=== PATIENT | female | born 1940 | race Caucasian/White ===

== ENCOUNTER 2024-02-23 11:17 | Emergency (ER) | payer MEDICARE, SELFPAY ==
--- NOTE | ~2024-02-23 | XR_ITS ---
HISTORY: right knee pain COMPARISON: 10/24/2015 TECHNIQUE: 3 views of the right knee were performed FINDINGS: Significant degenerative disease is identified with near complete obliteration of both the medial and lateral tibiofemoral joint spaces. Osteophyte formation is also noted, as is chondrocalcinosis (medial greater than lateral). No acute or subacute fracture. A suprapatellar joint effusion is identified. The infrapatellar joint space is clear. Calcified atherosclerotic disease is noted. Narrowing of the patellofemoral joint space is also noted. IMPRESSION: Severe degenerative disease, without acute fracture appreciated. Reviewed, dictated and finalized at location A. NCE CONSULTANT
--- NOTE | ~2024-02-23 | US_ITS ---
EXAMINATION: US venous doppler LE RT DATE: 02/23/2024 13:15 INDICATION: Right lower extremity pain TECHNIQUE: Grayscale ultrasound images without and with compression and Doppler ultrasound images of the right lower extremity veins were obtained. COMPARISON: None FINDINGS: The visualized portions of right common femoral vein, profunda (deep) femoral vein, femoral vein, pop liteal vein, peroneal veins, posterior tibial veins, and greater saphenous vein outflow are patent. A complex fluid collection is identified within the popliteal fossa measuring 34 x 40 x 27 mm, consis tent with a Alcocer's cyst, possibly the source of patient's discomfort. IMPRESSION: No deep venous thrombosis within the right lower extremity. Alcocer's cyst, as detailed above Reviewed, dictated and finalized at location A. N WINDER
[2024-02-23 11:18] VITALS: BP 150/75; PULSE 83; RESP 16; TEMP 36.4; O2SAT 98
--- NOTE | 2024-02-23 12:03 | ED_ITS ---
HPI - Extremity Injury (Lower) General Chief Complaint: Extremity Injury, Lower Stated Complaint: leg pain Time Seen by Provider: 02/23/24 11:55 Source: patient Mode of arrival: ambulatory Limitations: no limitations History of Present Illness HPI Narrative: This is a 84 year old female that presents to the ER for right lower extremity pain. Ongoing since she woke up this morning. Reports the pain is largely in her knee. Some radiation into the lower leg. Reports a possible injury yesterday. Reports some swelling in her leg. Denies fever, erythema, weakness, numbness. Related Data Allergies Allergy/AdvReac Type Severity Reaction Status Date / Time No Known Allergies Allergy Verified 02/23/24 12:05 Review of Systems 2 Review of Systems: CONSTITUTIONAL: Denies fever SKIN: Denies rash MUSCULOSKELETAL: Reports joint pain, and myalgia. NEUROLOGIC: Denies numbness, or weakness. All systems reviewed & are unremarkable except as noted in HPI and below PMFSH Past Medical History Medical History (Updated 02/23/24 @ 14:24 by Julianne Palma PA-C) History of hyperlipidemia History of pacemaker Family History Family History (Updated 10/22/15 @ 16:06 by DOCTOR UNKNOWN) Other Family history of cardiovascular disease Family history of malignant neoplasm Social History Social History Smoking status: Former smoker Smoking end date: 03/01/83 Alcohol intake: current Exam 2 Narrative: GENERAL: Well-appearing, well-nourished, and in no acute distress. HEAD: Normocephalic, atraumatic. EYES: EOMI. CHEST: Clear to auscultation. No respiratory distress. No wheezes rales or rhonchi HEART: Regular rate and rhythm. No murmur heard. Normal peripheral pulses. EXTREMITIES: Normal range of motion. Mild non-pitting edema about the calf and ankle. Normal DP and PT pulses. Normal sensation SKIN: Warm, dry, no rash. NEURO: No focal deficits. Alert and oriented x3. PSYCH: Normal mood and affect Course Course Emergency Course: Patient and family updated on workup and agree with plan of care Vital Signs Vital signs: Vital Signs Temperature 97.5 F L 02/23/24 11:18 Pulse Rate 83 02/23/24 11:18 Respiratory Rate 16 02/23/24 11:18 Blood Pressure 150/75 H 02/23/24 11:18 Pulse Oximetry 98 02/23/24 11:18 Oxygen Delivery Room Air 02/23/24 11:18 Temperature 97.5 F L 02/23/24 11:18 Pulse Rate 83 02/23/24 11:18 Respiratory Rate 16 02/23/24 11:18 Blood Pressure 150/75 H 02/23/24 11:18 Pulse Oximetry 98 02/23/24 11:18 Oxygen Delivery Room Air 02/23/24 11:18 MDM - Extremity Injury (Lower) MDM Narrative Medical decision making narrative: Patient presents to the emergency department for right knee and lower leg pain. She is afebrile and nontoxic appearing. Neurovascularly intact. There is mild swelling of the lower extremity appreciated this is nonpitting. CBC with mild leukocytosis to 10.6. Metabolic panel without concerning findings. Right lower extremity venous Doppler without evidence of DVT. 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 Right knee x-ray shows severe degenerative disease. Patient and family updated on workup and agree with plan of care. Instructed to follow-up with orthopedics for further care. She was given warnings to return to the ER Differential Diagnosis Differential diagnosis: Likely acute internal derangement of knee and other (Osteoarthritis, DVT, Alcocer cyst) Lab Data Attestation: I reviewed the patient's lab results. 02/23/24 12:19 02/23/24 12:19 Labs: Lab Results 02/23/24 Range/Units 12:19 WBC 10.6 H (4.5-10.0) K/mm3 RBC 4.25 (4.2-5.4) M/mm3 Hgb 13.4 (12.0-15.0) g/dL Hct 39.3 (37.0-47.0) % MCV 92.5 (80-100) fl MCH 31.5 (26-34) pg MCHC 34.1 (32-36) g/dl RDW 14.9 H (11.5-14.5) % Plt Count 173 (150-375) k/mm3 MPV 10.4 (7.4-10.4) fl Immature Gran % (Auto) 0.4 (0-0.5) % Neut % (Auto) 70.1 (45.5-73.1) % Lymph % (Auto) 14.6 L (18.3-44.2) % [place] % (Auto) 13.7 H (2.6-8.5) % Eos % (Auto) 0.9 (0-4.4) % Baso % (Auto) 0.3 (0.2-1.2) % Lymph # (Auto) 1.55 (0.9-3.2) K/mm3 [place] # (Auto) 1.5 H (0.1-0.6) K/mm3 Eos # (Auto) 0.1 (0-0.3) K/mm3 Baso # (Auto) 0.0 (0.0-0.1) K/mm3 Abs Immat Gran (auto) 0.04 H (0.00-0.031) K/mm3 Absolute Neuts (auto) 7.5 H (1.3-6.7) K/mm3 Absolute Nucleated RBC 0.000 (0.0-0.012) K/mm3 Nucleated RBC % 0.0 (0.0-0.2) % PT 14.4 (11.1-14.7) Seconds INR 1.1 APTT 33.4 (22.3-36.8) Seconds Sodium 137 (137-145) mmol/L Potassium 4.1 (3.4-5.0) mmol/L Chloride 104 (98-107) mmol/L Carbon Dioxide 30 (22-30) mmol/L Anion Gap 3 L (4-12) mmol/L BUN 28 H (7-17) mg/dL Creatinine 0.60 L (0.7-1.0) mg/dL Estim Creat Clear Calc 51 ml/min Estimated GFR > 60 (59 - ) Glucose 97 (65-110) mg/dL Calcium 9.1 (8.4-10.2) mg/dL Total Bilirubin 0.7 (0.2-1.3) mg/dL AST 30 (14-36) U/L ALT 13 (6-35) U/L Alkaline Phosphatase 74 (38-126) U/L NT-Pro-B Natriuret Pep 201 H (19.9-100) pg/mL Total Protein 6.0 L (6.3-8.2) g/dL Albumin 3.9 (3.5-5.1) g/dL Imaging Data Radiologist's impression: ITS Impressions Venous Doppler Study 02/23/24 13:43 IMPRESSION: No deep venous thrombosis within the right lower extremity. Alcocer's cyst, as detailed above Knee X-Ray 02/23/24 14:08 IMPRESSION: Severe degenerative disease, without acute fracture appreciated. Critical Care Time Critical Care Time Critical Care Time: No Discharge Plan Discharge Clinical Impression: Acute pain of right knee, Osteoarthritis, Alcocer cyst Patient Disposition: Home, Self-Care Condition: Stable Instructions: Osteoarthritis (ED), Alcocer Cyst (ED) Additional Instructions: Return to the ER if you experience fever, redness and swelling of your leg, weakness, numbness or any other symptoms that are concerning to you Rest, use ice/heat, take anti-inflammatories (Aleve, Ibuprofen, Naproxen, etc) or Tylenol as needed for pain Follow up with Orthopedics Patient Language: Arabic Follow-up/Referrals: Kael Boucher MD [Physician] - PHYSICIAN NOT ON STAFF,NONSTAFF [Non-Staff] - Сергей Salcido MD [Physician] -
[2024-02-23 12:24] LABS: Basophils Percent Auto 0.3 % (0.2-1.2); Eosinophils Absolute Auto 0.1 K/mm3 (0-0.3); Eosinophils Percent Auto 0.9 % (0-4.4); Hematocrit 39.3 % (37.0-47.0); Hemoglobin 13.4 g/dL (12.0-15.0); Immature Granulocyte Absolute 0.04 K/mm3 (0.00-0.031); Immature Granulocyte Percent A 0.4 % (0-0.5); Lymphocytes Absolute Auto 1.55 K/mm3 (0.9-3.2); Lymphocytes Percent Auto 14.6 % (18.3-44.2); Mean Corpuscular HGB Conc 34.1 g/dl (32-36); Mean Corpuscular Hemoglobin 31.5 pg (26-34); Mean Corpuscular Volume 92.5 fl (80-100); Mean Platelet Volume 10.4 fl (7.4-10.4); Monocytes Absolute Auto 1.5 K/mm3 (0.1-0.6); Monocytes Percent Auto 13.7 % (2.6-8.5); Neutrophils Absolute Auto 7.5 K/mm3 (1.3-6.7); Neutrophils Percent Auto 70.1 % (45.5-73.1); Platelet Count Result 173 k/mm3 (150-375); Red Blood Count 4.25 M/mm3 (4.2-5.4); Red Cell Distribution Width 14.9 % (11.5-14.5); White Blood Count 10.6 K/mm3 (4.5-10.0)
[2024-02-23 12:33] LABS: Alanine Aminotransferase 13 U/L (6-35); Albumin Level 3.9 g/dL (3.5-5.1); Alkaline Phosphatase 74 U/L (38-126); Anion Gap 3 mmol/L (4-12); Aspartate Amino Transferase 30 U/L (14-36); Bilirubin,Total 0.7 mg/dL (0.2-1.3); Blood Urea Nitrogen 28 mg/dL (7-17); Calcium 9.1 mg/dL (8.4-10.2); Carbon Dioxide 30 mmol/L (22-30); Chloride 104 mmol/L (98-107); Estimated CRCL calculation 51 ml/min; Estimated Glomerular Filt Rate > 60; Glucose 97 mg/dL (65-110); Potassium 4.1 mmol/L (3.4-5.0); Sodium 137 mmol/L (137-145)
[2024-02-23 12:36] LABS: INR 1.1; Partial Thromboplastin Time 33.4 Seconds (22.3-36.8); Prothrombin Time 14.4 Seconds (11.1-14.7)
[2024-02-23 12:42] LABS: NT Pro B Type Natriuretic Pept 201 pg/mL (19.9-100)
--- OUTSIDE RECORDS SUMMARY | 2024-03-01 05:49 | XMS_ITS | Patient Health Record ---
Author Organization [facility] steve Address [address] [place] [address] Care Team Providers Care Air Grinder Name Role Phone Luisa Mitchell DO Primary Care Provider Emelyn rios YimiRenetta Unavailable [phone] Allergies No Known Allergies Results Component Value Reference Range Notes CRP (C-REACTIVE PROTEIN) Reviewed date:09/29/2023 04:20:31 PM Interpretation: Performing Lab:[facility], [address] [place] [address], [id number] Notes/Report: C-Reactive Protein <1.0 0.0-10.0 mg/L RHEUMATOID FACTOR (RF), MARJORIE TITATIVE Reviewed date:09/29/2023 04:20:31 PM Interpretation: Performing Lab:[facility], [address] [place] [address], [id number] Notes/Report: Rheumatoid Factor, Quantitative Interpretation Negative Negative RF, Quantitation <10 <=14 IU/mL CK Reviewed date:09/29/2023 04:20:31 PM Interpretation: Performing Lab:[facility], [address] [place] [address], [id number] Notes/Report: CK, Total 137 26-192 units/L URIC ACID Reviewed date:09/29/2023 04:20:31 PM Interpretation: Performing Lab:[facility], [address] [place] [address], [id number] Notes/Report: Uric Acid 5.6 2.3-6.6 mg/dL CMP(COMPREHENSIVE METABOLIC PANEL) Reviewed date:09/29/2023 04:20:31 PM Interpretation: Performing Lab:[facility], [address] [place] [address], [id number] Notes/Report: Sodium 138 133-146 mmol/L Potassium 4.5 3.5-5.1 mmol/L Chloride 102 98-107 mmol/L Carbon Dioxide 30 21-31 mmol/L Anion Gap 6 4-13 mmol/L Blood Urea Nitrogen 43 7-25 mg/dL Creatinine 0.93 0.60-1.30 mg/dL eGFRcr (CKD-EPI 2020) 62 >=60 mL/min/1.73 m2 Calcium 9.9 8.3-10.5 mg/dL Glucose 97 70-100 mg/dL Protein, Total 6.7 6.4-8.3 g/dL Albumin 4.5 3.5-5.0 g/dL ALT 16 9-43 units/L Alkaline Phosphatase 51 34-104 units/L AST 26 13-39 units/L Bilirubin, Total 0.5 0.2-1.2 mg/dL CBC W/DIFF Reviewed date:09/29/2023 04:20:31 PM Interpretation: Performing Lab:[facility], [address] [place] [address], [id number] Notes/Report: WBC 7.3 3.5-10.5 10'3/uL RBC 4.38 (Based on docume nted legal sex) 3.80-5.20 10'6/uL HGB 13.9 (Based on docume nted legal sex) 11.6-15.4 g/dL HCT 41.7 (Based on docume nted legal sex) 34.0-45.0 % MCV 95.2 80.0-99.0 fL MCH 31.7 27.0-34.0 pg MCHC 33.3 32.0-35.5 g/dL RDW 14.1 11.0-15.0 % PLT 191 150-400 10'3/uL MPV 11.9 8.8-12.1 fL NRBC's 0.0 0.0 % Absolute NRBCs 0.0 No reference ran ge established 10'3/uL Neutrophils 55.5 34.0-73.0 % Lymphocytes 34.1 15.0-50.0 % Monocytes 8.6 1.0-15.0 % Eosinophils 1.6 0.0-8.0 % Basophils 0.1 0.0-2.0 % Immature Granulocytes 0.1 No defined reference range % Absolute Neutrophils 4.1 1.5-8.0 10'3/uL Absolute Lymphocytes 2.5 1.0-4.0 10'3/uL Absolute Monocytes 0.6 0.2-1.0 10'3/uL Absolute Eosinophils 0.1 0.0-0.6 10'3/uL Absolute Basophils 0.0 0.0-0.3 10'3/uL Absolute Immature Granulocytes 0.0 0.00-0.10 10'3/uL 09/28/2023 4:42 AM: P indicates partial results on a panel have been released. Additional results will follow. 09/28/2023 4:42 AM: This result has been final verified. No additional or changed results are expected. SEDIMENTATION RATE, ESR Reviewed date:09/29/2023 04:20:31 PM Interpretation: Performing Lab:[facility]@[address], [address] Notes/Report: Sedimentation Rate 2 (Based on doc umented legal sex) 0-30 mm/Hour CYCLIC CITRULLINATED PEPTIDE (CCP) AB, IgG/IgA Reviewed date:09/29/2023 04:20:31 PM Interpretation: Performing Lab:[facility], [address] [place] [address], [id number] Notes/Report: CCP Antibodies 69 0-19 units Negative <20 Weak positive 20 - 39 Moderate positive 40 - 59 Strong positive >59 Performed at: [address] [place] [id number] Button Sawyer: Parrish Campos PhD, Phone: [phone] G6PD, QUANTITATIVE, RBC Reviewed date:09/29/2023 04:20:32 PM Interpretation: Performing Lab:[address], [address] Notes/Report: G-6-PD, RBC 16.3 7.0-20.5 U/g Hgb Performing Organization Information: Site ID: Name: [facility] Address: [address] [place] [id number] Director: Rodger Guillen SSA/SSB ANTIBODY (SJOGREN'S) Reviewed date:09/29/2023 04:20:32 PM Interpretation: Performing Lab:[facility], [address] [place] [address], [id number] Notes/Report: SSA Ro Antibody <0.2 0.0-0.9 AI SSA Ro Interpretation Negative Negative SSB La Antibody <0.2 0.0-0.9 AI SSB La Interpretation Negative Negative CÉSAR SCREEN/REFLEX TITER/SOSA WILTON Reviewed date:09/29/2023 04:20:32 PM Interpretation: Performing Lab:[facility], [address] [facility], [place], [address] Notes/Report: Anti-Nuclear Antibody Negative Negative CÉSAR titers and patterns are performed using an immunofluorescence assay technology. Follow up testing for positive specimens, if required, is performed using multiplex bead technology. Reason For Referral No Information Medications Medication SIG (Take, Route, Frequency, Duration) Notes Start Date End Date Status Florien 3-6-9 - as directed Orally Active dilTIAZem HCl ER 240 MG 1 tablet Orally Once a day for 30 day(s) Active B Complex - as directed Orally Active Metoprolol Succinate ER 25 MG 1 tablet O rally Once a day for 30 day(s) Active Calcium 500 Active Hydroxychloroquine Sulfate 2 00 MG TAKE 1 TABLET BY MOUTH EVERY DAY WITH FOOD Orally for 30 days Active Atorvastatin Calcium 20 MG 1 tablet Oral ly Once a day for 30 day(s) Active Meloxicam 7.5 MG 1 tablet Orally Once a day for 30 day(s) Active Pradaxa 150 MG 1 capsule Orally Twi ce a day for 30 day(s) Active Eye Health - as directed Orally Active Social History Tobacco Use: Social History Observation Description Date Details (start date - stop date) Former Smoker NA - NA Household Question Answer Notes Marital status: Number of children in household: 0 Tobacco Control (Standard) Question Answer Notes Tobacco use: Former smoker How long has it been since you last smoked? 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 [address] [place] [address] 09/27/2023 Renetta Geller Pain in unspecified joint M25.50 ; Pain in right hand M79.641 ; Pain in left hand M79.642 ; Pain, joint, knee, right M25.561 and Right foot pain M79.671 [facility] [address] [place] [address] 10/13/2023 Renetta Geller Rheumatoid arthritis 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, multiple sites M06.09 ; Generalized osteoarthritis M15.9 and High risk medication use Z79.899 [facility] [address] [facility] [address] [place] [address] 01/13/2024 Renetta Geller Rheumatoid arthritis 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, multiple sites M06.09 ; Generalized osteoarthritis M15.9 and High risk medication use Z79.899 Assessments Encounter Date Diagnosis (ICD Code) Assessment Notes Treatment Notes Treatment Clinical Notes Section Notes 09/27/2023 Pain in unspecified joint (ICD-10 - M25.50) 83 year old female with pain in the hands, the right foot and the right knee. Joint exam suggests osteoarthritis. Labs and Xrays will be ordered to rule out other possibilities. Follow up virtual visit will be scheduled. 09/27/2023 Pain in right hand (ICD-10 - M79.641) 83 year old female with pain in the hands, the right foot and the right knee. Joint exam suggests osteoarthritis. Labs and Xrays will be ordered to rule out other possibilities. Follow up virtual visit will be scheduled. 10/13/2023 Rheumatoid arthritis 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, multiple sites (ICD-10 - M06.09) anti-CCP 69, h as seronegative rheumatoid arthritis and erosive osteoarthritis based on Xrays, start plaquenil 200mg/day, return in 3 months 10/13/2023 Generalized osteoarthritis (ICD-10 - M15.9) anti-CCP 69, childress s seronegative rheumatoid arthritis and erosive osteoarthritis based on Xrays, start plaquenil 200mg/day, return in 3 months 01/13/2024 Rheumatoid arthritis 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, multiple sites (ICD-10 - M06.09) advised to sto p mobic due to being on pradaxa and borderline GFR, hx of bradycardia and atrial fibrillation s/p pacer, advised her to call cylinder machine operator pulp drier and ask if plaquenil can be continued (it has hlped with joint pain) 10/13/2023 High risk medication use (ICD-10 - Z79.899) anti-CCP 69, has seronegative rheumatoid arthritis and erosive osteoarthritis based on Xrays, start plaquenil 200mg/day, return in 3 months 09/27/2023 Pain in left hand (ICD-10 - M79.642) 83 year old female with pain in the hands, the right foot and the right knee. Joint exam suggests osteoarthritis. Labs and Xrays will be ordered to rule out other possibilities. Follow up virtual visit will be scheduled. 01/13/2024 Generalized osteoarthritis (ICD-10 - M15.9) advised to stop mobic due to being on pradaxa and borderline GFR, hx of bradycardia and atrial fibrillation s/p pacer, advised her to call cylinder machine operator pulp drier and ask if plaquenil can be continued (it has hlped with joint pain) 09/27/2023 Pain, joint, knee, right (ICD-10 - M25.561) 83 year old female with pain in the hands, the right foot and the right knee. Joint exam suggests osteoarthritis. Labs and Xrays will be ordered to rule out other possibilities. Follow up virtual visit will be scheduled. 01/13/2024 High risk medication use (ICD-10 - Z79.899) advised to st op mobic due to being on pradaxa and borderline GFR, hx of bradycardia and atrial fibrillation s/p pacer, advised her to call cylinder machine operator pulp drier and ask if plaquenil can be continued (it has hlped with joint pain) 09/27/2023 Right foot pain (ICD-10 - M79.671) 83 year old female with pain in the hands, the right foot and the right knee. Joint exam suggests osteoarthritis. Labs and Xrays will be ordered to rule out other possibilities. Follow up virtual visit will be scheduled. Plan Of Treatment Pending Test Test Name Order Date X ray : Foot, right 09/27/2023 X ray : Hands, bilateral 09/27/2023 X ray : Knee, right 2 views 09/27/2023 Next Appt Details Provider Name:Renetta Geller, 04/13 01:30:00 PM, [address] [facility] [address], [place], [address], Insurance Providers Payer Name Payer Address Payer Phone Subscriber Number Group Number Insured Name Patient Relationship to Insured Coverage Start Date Coverage End Date Medicare [address] [address] [place] [address] [id number] Francine Erwin Self - patient is the insured [employer] [facility] [address] [address] [place] [address] [id number] Francine Erwin Self - patient is the insured Medical (General) History Medical History History ICD Code atrial fibrillation, gastrit is, hypertension, hyperlipidemia, insomnia, hypervitaminosis D, proteinuria, skin cancer, spinal stenosis, psoriasis Surgical History Surgery Date(Month/Year) pace maker
--- OUTSIDE RECORDS SUMMARY | 2024-03-01 05:49 | XMS_ITS | Encounter Summary ---
Author Organization [facility] Healthcare Address [address] [place] [address] Care Team Providers Care Steward Dishwasher Name Role Phone Angie Riddle MD Unavailable [phone] Luisa Mitchell DO Primary Care Provider [phone] Reason for Visit * Auth/Cert (Routine) Specialty Diagnoses / Procedures Referred By Viridiana oconnor Referred To Contact Diagnoses SSS (sick sinus syndrome) (CMS/HCC) (HCC) SSS (sick sinus syndrome) (CMS/HCC) (HCC) [I49.5] Procedures WI REMVL PERM PM PLS GEN W/REPL PLSE GEN 2 LEAD SYS REMOVE/REPLACE PACEMAKER (PPM) DUAL LEAD SYSTEM [address] Arnold Stout III, MD [address] [address] Phone: tel: fax: Referral ID Status Reason Start Date Expiration Date Visits Re quested Visits Authorized [id number] 11/08/2023 1 1 Encounter Details Date Type Department Care Team (Latest Contact Info) Description 11/15/2023 3:25 PM CDT - 11/15/2023 4:45 PM CDT Surgery [facility] Electrophysiology Lab [address] [place] [id number] Arnold Stout III, MD [address] [address] REMOVE/REPLACE PACEMAKER (PPM) DUAL LEAD SYSTEM [address] Surgery Details Date/Time Status Location OR Service Patient Class Case Class Case Type Trauma Case? 11/15/2023 3:25 PM Posted [facility] EP LAB EP D Cardiovascular Outpatient Elective Panel 1 Procedure LRB Anes Op Region Wound Class Comments REMOVE/REPLACE PACEMAKER (PP M) DUAL LEAD SYSTEM [address] N/A Choice Surgeon Surgeon Role Service Panel Arnold Stout III, MD Primary Cardiovascu lar 1 Case Notes DESULPHURIZER OPERATOR/MEDTRONICPPM GEN CHANGE documented in this encounter Social History Tobacco Use Types Packs/Day Years Used Date Smoking Tobacco: Former Cigarettes Q uit: 1984 Smokeless Tobacco: Never Alcohol Use Standard Drinks/Week Comments No 0 (1 standard drink = 0.6 oz pur e alcohol) AUDIT-C Answer Date Recorded Q1: How often do you have a drink containing alc ohol? Monthly or less 11/15/2023 Q2: How many drinks containi ng alcohol do you have on a typical day when you are drinking? 1 or 2 11/15/2023 Q3: How often do you have si x or more drinks on one occasion? Never 11/15/2023 Personal Safety Answer Date Recorded Have you ever been in or are you currently in a harmful physical or emotional relationship or is someone making you feel afraid or unsafe? Denies 11/15/2023 Comments No Sex and Gender Information Value Date Recorded Sex Assigned at Not on file Legal Sex Female 9:31 AM FAMILY PRACTITIONER Gender Identity Not on file Sexual Orientation Not on file documented as of this encounter Last Filed Vital Signs Vital Sign Reading Time Taken Comments Blood Pressure 166/90 11/15/2023 4:20 PM CDT Pulse 59 11/15/2023 4:20 PM CDT Temperature 37 ??C (98.6 ??F) 11/15/2023 11:55 AM CDT Respiratory Rate 16 11/15/2023 4:20 PM CDT Oxygen Saturation 93% 11/15/2023 4:20 PM CDT Inhaled Oxygen Concentration - - Weight 51.5 kg (113 lb 8.6 oz) 11/15/2023 11:55 AM CDT Height 160 cm (5' 3 ) 11/15/2023 11:55 AM CDT Body Mass Index 20.11 11/15/2023 11:55 AM CDT documented in this encounter Discharge Instructions * Discharge Instructions* Arnold Stout III, MD - 11/15/2023 4:09 PM CDT Images from the original note were not included. [facility] Discharge Instructions Generator Replacement IMPORTANT: DO NOT TAKE PRADAXA (DABIGATRAN) FOR 3 days AFTER THE PROCEDURE. YOU MAY RESUME ON 11/18/23 Wound Care Keep wound dry (no showers) for 1 week. Do not remove steri-strips, as these are protecting your wound. They will fall off on their own. After 1 week, you may shower. You may ???pat dry?? your incision with a towel. Do not scrub. Do Not Use Soap or ointments on the wound. Do not ???submerge?? the incision (i.e., with a bath) for 4 weeks. Notify the physician at the office if you develop fever > 100.4, chills, increasing swelling, redness or drainage from your pacemaker site. If you have a moderate amount of discomfort at the site, you may apply an ice pack for 20 minutes 3times a day for one week. Activity No driving for 1 week. No additional restrictions regarding activity ID Card You will receive a temporary card from the device company. Carry this in your wallet until your permanent card arrives, usually in 6-8 weeks. A monitor will be sent home with you, please read the instructions and supervisor mails the monitor. Additional Instructions Extra Strength Tylenol may be taken every 6 hours as needed for pain. You should avoid strong magnetic currents (large electrical generators, arc welding). You can operate any home electrical appliances including microwave ovens. Notify the physician office at [phone], immediately if you develop abrupt dizziness or shortness of breath. If you feel there is an urgent matter, call 911 or go to the emergency room. Call the office at [phone] with any questions or concerns. Call to schedule a follow-up appointment / wound check. This should be done in the first 7-10 days following your procedure. IMPORTANT: DO NOT TAKE PRADAXA (DABIGATRAN) FOR 3 days AFTER THE PROCEDURE. YOU MAY RESUME ON 11/18/23 Arnold Stout III, M.D. Cardiac Electrophysiology [facility] 11/08/2023 documented in this encounter Medications at Time of Discharge atorvastatin (LIPITOR) 20 mg tablet Take 1 tablet (20 mg total) by mouth daily CALCIUM CITRATE-VITAMIN D3 ORAL Take 1 tablet by mouth 2 (two) times a day VITAMIN D3 60MCG + CALCIUM 1200MG dilTIAZem CD 180 mg 24 hr capsule Take by mouth daily 08/01/2023 meloxicam (MOBIC) 7.5 mg tablet Take 1 tablet (7.5 mg total) by mouth daily metoprolol XL (TOPROL-XL) 50 mg extended release tablet TAKE 1 TABLET BY MOUTH EVERY DAY 90 tablet 2 10/28/2023 omega-3 fatty acids-vitamin E (FISH OIL) 1,000 mg capsule take 1 by Oral route 3 times every day 0 0 07/21/2013 VIT C/E/ZN/COPPR/LUT EIN/ZEAXAN (PRESERVISION AREDS 2 ORAL) Take by mouth Take 2 capsules daily cephalexin (KEFLEX) 500 mg capsule Take 1 capsule (500 mg total) by mouth 3 (three) times a day for 5 days 15 capsule 11/15/2023 11/20/2023 dabigatran (Pradaxa) 150 mg capsule Take 1 capsule (150 mg total) by mouth 2 (two) times a day 180 capsule 2 03/25/2023 12/28/2023 documented as of this encounter Ordered Prescriptions Prescription Sig Dispense Quantity Refills Last Filled Start Date End Date cephalexin (KEFLEX) 500 mg capsule Take 1 capsule (500 mg total) by mouth 3 (three) times a day for 5 days 15 capsule 11/15/2023 documented in this encounter Discharge Disposition Disposition Code Departure Means Destination Comment s Discharge to home or self care documented in this encounter H&P Notes * Arnold Stout III, MD - 11/17/2023 9:36 PM CDT [facility] Arrhythmia Center: Focused H&P Patient ID Francine Erwin 1940 is a 83 y.o. female presenting on 11/17/2023 for an EP procedure. Pleasesee prior outpatient clinic note for full detail. History HPI Francine Erwin is a 83 y/o woman with sinus node dysfunction s/p dual chamber pacemaker. Her generator has reached SARMAD status. Past Medical History Patient Active Problem List Diagnosis Date Noted SSS (sick sinus syndrome) ([facility]/HCC) ([facility]) 11/08/2023 Paroxysmal atrial fibrillation ([facility]) ([facility]) 09/07/2016 Overview Note: On chronic AC. 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 Chronic A lead is from 09-13-03. [facility]. Breast mass, left 08/19/2016 Allergies No Known Allergies Medications Please refer to medicine reconciliation form Physical Exam Physical Exam BP 166/90 Pulse 59 Temp 37 ??C (98.6 ??F) (Tympanic) Resp 16 Ht 160 cm (5' 3 ) Wt 51.5 kg(113 lb 8.6 oz) SpO2 93% BMI 20.11 kg/m?? General: No acute distress. Lungs: Clear to auscultation bilaterally. Cardiovascular: RRR Abdomen: Soft and non-tender. Extremities: Moving all extremities. Neuro: Grossly non-focal Treatment Plan Impression: Sinus node dysfunction, s/p dual chamber pacemaker Pacemaker generator SARMAD status Plan: To EP lab for pacemaker generator replacement w/anesthesia documented in this encounter Miscellaneous Notes * Op Note - Arnold Stout III, MD - 11/15/2023 3:30 PM CDT Name of procedure: 1. Device Revision: Dual Chamber Pacemaker 2. Pulse Generator Change History: Sinus node dysfunction, s/p dual chamber pacemaker Pacemaker generator SARMAD mullins Methods: After informed consent was obtained, the patient was brought to the EP laboratory in a postabsorptive, nonsedated state. Peripheral IV access was established. Prophylactic antibiotics were administered prior to incision. Continues ECG, blood pressure, and pulse oximetry were initiated. Cardioversion patch electrodes were placed on the patient's chest and back. A grounding patch was applied to theskin. Sedation was administered by anesthesia service.. The left chest was prepared and draped in a sterile fashion. Local anesthesia was injected in the subcutaneous tissue in the infraclavicular area. An incision was made into the chronic scar. With cautious attention to the leads, the subcutaneous tissue was dissected the level of the device capsule.The capsule was opened, the device was explanted and disconnected from the leads. The leads were inspected and found to be free of visible defect. The leads were tested and found to have adequate pacing and sensing parameters, consistent with pre- procedure measurements. The pocket was revised to accomodate the new device. The pocket was flushed with antibiotic solution and hemostasis was assured. Floseal was applied. The generator was connected to the leads and placed inside the pocket. The wound was closed with 2 running layers of absorbable suture, and medical adhesive was applied to the skin. Following the procedure, the patient was taken to the recovery area in stable condition. No complications were noted. Lead parameters and device programming: - RA Lead (#[id number]): Sensing 3.1 mV, Pacing threshold 1.2 V at 0.5 ms, Imp 532 Ohm - RV Lead (#[id number]): Sensing >8 mV, Pacing threshold 1.0 V at 0.5 ms, Imp 494 Ohm - Device: Medvi Dorman DR MRI SureScan pacemaker (#[id number]), programmed MVPR 60-120 ppm - Explanted device: Medtronic Jose COBOS (#[id number]) Conclusions: 1. Successful dual chamber pacemaker revision 2. Pulse generator change, pacemaker Recommendations: 1. Discharge home when stable 2. Oral antibiotics for five days 3. Hold pradaxa for 3 days. 4. Follow-up will be arranged in the Arrhythmia Center 7-10 days post-discharge Arnold Stout III, M.D. Cardiac Electrophysiology [facility] documented in this encounter Plan of Treatment Not on file documented as of this encounter Procedures Procedure Name Priority Date/Time Associated Diagnosis Comments PACEMAKER GENERATOR CHANGE - DUAL Routine 11/15/2023 4:03 PM CDT SSS (sick sinus syndrome) (CMS/HCC) (HCC) ECG 12-LEAD STAT 11/15/2023 12:02 PM CDT documented in this encounter Results * PACEMAKER GENERATOR CHANGE - DUAL (11/15/2023 4:03 PM CDT) Anatomical Region Laterality Modality X-Ray Angiograph y Arnold Stout III, MD CV ELECTROPHYSIOLOG Y PROCS Final Result * ECG 12 lead (11/15/2023 12:02 PM CDT) 11/15/2023 12:0 2 PM CDT Narrative [facility] - 11/15/2023 9:46 PM CDT Vent Rate: 65 bpm RR Interval: 921 msec [place] Interval: 0 msec QRS Duration: 202 msec QT Interval: 486 msec QTC Interval: 497 msec P-R-T [place]: 0 - 102 - -66 degrees IMPRESSION: ELECTRONIC VENTRICULAR PACEMAKER ABNORMAL RHYTHM ECG Electronically Signed By: Rajendra Nunes MD Arnold Stout III, MD ECG ORDERABLES Fin al Result [facility] documented in this encounter Visit Diagnoses Diagnosis SSS (sick sinus syndrome) (CMS/HCC) (HCC)- Primary Sinoatrial node dysfunction SSS (sick sinus syndrome) (CMS/HCC) (HCC) Sinoatrial node dysfunction documented in this encounter Admitting Diagnoses Diagnosis SSS (sick sinus syndrome) (CMS/HCC) (HCC) Sinoatrial node dysfunction documented in this encounter Administered Medications Inactive Administered Medications - up to 3 most recent administrations Medication Order MAR Action Action Date Dose Rate Site lidocaine (XYLOCAINE) 20 mg/mL (2 %) injection Code/trauma/sedation medication, Starting on Wed11/15/23 at 1548, Intra-Procedure (CV), Indications: Administration of Local AnesthesiaIndications:Adm inistration of Local Anesthesia Given 11/15/2023 3:48 PM CDT 13 mL Left Chest sodium chloride 0.9% infusion 50 mL/hr, intravenous, Continuous, Starting on Wed11/15/23 at 1230, Pre-Procedure (CV) New Bag 11/15/2023 12:01 PM CDT 50 mL/hr 50 mL/hr sodium chloride 0.9% irrigation Code/trauma/sedation medication, Starting on Wed11/15/23 at 1554, Intra-Procedure (CV) Given 11/15/2023 3:54 PM CDT 500 mL Surgical Site documented in this encounter Discontinued Medications Medication Sig Discontinue Reason Start Date End Da te meloxicam (MOBIC) 7.5 mg tablet Take 1 tablet (7.5 mg total) by mouth daily as needed Duplicate order 08/26/2023 11/12/2023 meloxicam (MOBIC) 15 mg tablet take 1 tablet by oral route every day as needed Duplicate order 07/21/2013 11/12/2023 ascorbic acid/collagen hydr (COLLAGEN PLUS VITAMIN C ORAL) Take 6 tablets by mouth daily Therapy completed 11/12/2023 cholecalciferol (VITAMIN D-3) 5,000 unit tablet daily Therapy completed 024 cyanocobalamin (Vitamin B-12) 1,000 mcg tabletIndications:Preven tion of Vitamin B12 Deficiency Take 5 tablets (5,000 mcg total) by mouth daily Therapy completed 11/12/2023 multivitamin tablet tablet take 1 by Oral route once Therapy completed 07/21/2013 11/12/2023 polycarbophil (FIBERCON) 625 mg tablet Take 1 tablet (625 mg total) by mouth daily ONE IN AM AND TWO AT PM Therapy completed 11/12/2023 vitamin b complex tablet Take 1 tablet by mouth daily Therapy completed 11/15/2023 documented as of this encounter Historical Medications * This list may reflect changes made after this encounter. CALCIUM CITRATE-VITAMIN D3 ORAL Take 1 tablet by mouth 2 (two) times a day VITAMIN D3 60MCG + CALCIUM 1200MG meloxicam (MOBIC) 7.5 mg tablet Take 1 tablet (7.5 mg total) by mouth daily vitamin b complex tablet Take 1 tablet by mouth daily 11/15/2023 meloxicam (MOBIC) 7.5 mg tablet Take 1 tablet (7.5 mg total) by mouth daily as needed 08/26/2023 11/12/2023 added in this encounter Active and Recently Administered Medications Times are shown in CDT. Continuous Medication Order 11/13/2023 11/14/2023 11/15/2023 sodium chloride 0.9% infusion 50 mL/hr, intravenous, Continuous, Starting on Wed11/15/23 at 1230, Pre-Procedure (CV) 1201 (New Bag - Prov ider: Cecelia Bullock RN) PRN Medication Order 11/13/2023 11/14/2023 11/15/2023 lidocaine (XYLOCAINE) 20 mg/mL (2 %) injection (CANCELED) Code/trauma/sedation medication, Starting on Wed11/15/23 at 1548, Intra-Procedure (CV), Indications: Administration of Local Anesthesia 1548 (Given - Provid er: Arnold Stout III, MD) sodium chloride 0.9% irrigation (CANCELED) Code/trauma/sedation medication, Starting on Wed11/15/23 at 1554, Intra-Procedure (CV) 1554 (Given - Provid er: Arnold Stout III, MD) documented in this encounter Orders Discharge Count Last Ordered Date First Orde red Date DISCHARGE PATIENT 1 11/15/2023 documented in this encounter Care Teams Steward Dishwasher Relationship Specialty Start Date End Date Luisa Mitchell DO [address] [place], [place] [id number] PCP - General Internal Medicine 08/11/22 Angie Riddle MD [address] [place] [address] Gynecology 08/19/16 documented as of this encounter
--- OUTSIDE RECORDS SUMMARY | 2024-03-01 05:49 | XMS_ITS | Encounter Summary ---
Author Organization [facility] Healthcare Address [address] [place] [address] Care Team Providers Care Energy Trading Analyst Name Role Phone Angie Riddle MD Unavailable [phone] Luisa Mitchell DO Primary Care Provider [phone] Reason for Visit * Reason Onset Date Comments Med Management 01/14/2024 Encounter Details Date Type Department Care Team (Late st Contact Info) Description 01/14/2024 Telephone [facility] Cardiology [address] [facility] [address] [place] [address] Yoni Matamoros MD [address] [facility] [address] [place] [address] Med Management Social History Tobacco Use Types Packs/Day Years Used Date Smoking Tobacco: Former Cigarettes Q uit: 1985 Smokeless Tobacco: Never Alcohol Use Standard Drinks/Week [...] on file Legal Sex Female 9:31 AM OIL AGENT Gender Identity Not on file Sexual Orientation Not on file documented as of this encounter Miscellaneous Notes * Telephone Encounter - Shakira Iyer - 01/14/2024 2:27 PM CST Pt called and informed AGENT * Telephone Encounter - Yoni Matamoros MD - 01/14/2024 2:21 PM OIL AGENT I do not have any problems with her taking hydroxychloroquine AGENT * Telephone Encounter - Shakira Iyer - 01/14/2024 1:33 PM CST Pt saw a dr and was prescribed hydroxychloro 200mg tabs daily for arthritis. Was instructed to call to see if ok for her to take with her cardiac condition. AGENT documented in this encounter Plan of Treatment Not on file documented as of this encounter Visit Diagnoses Not on filedocumented in this encounter Care Teams Energy Trading Analyst Relationship Specialty Start Date End Date Luisa Mitchell DO [address] [place] [address] PCP - General Internal Medicine 08/11/22 Angie Riddle MD [address] [place] [address] Gynecology 08/19/16 documented as of this encounter
--- OUTSIDE RECORDS SUMMARY | 2024-03-01 05:49 | XMS_ITS | Encounter Summary ---
Author Organization [facility] Healthcare Address [address] [place] [address] Care Team Providers Care Game Designer/Creative Director Name Role Phone Angie Riddle MD Unavailable [phone] Luisa Mitchell DO Primary Care Provider [phone] Reason for Visit * Cardiology (Routine) - Closed Specialty Diagnoses / Procedures Referred By Viridiana oconnor Referred To Contact Diagnoses SSS (sick sinus syndrome) (CMS/HCC) ([facility]) Procedures DEVICE CHECK - IN OFFICE Arnold Stout III, MD [address] [address] Phone: tel: fax: [facility] Referral ID Status Reason Start Date Expiration Date Visits Re quested Visits Authorized [id number] Closed 11/08/2023 12/07/2024 1 1 Encounter Details Date Type Department Care Team (Latest Contact Info) Description 12/06/2023 1:00 PM CDT Ancillary Procedure Arrhythmia Center [address] [facility] [address], [place] [id number] Cardiac pacemaker in situ (Primary Dx); SSS (sick sinus syndrome) (CMS/HCC) (HCC) Social History Tobacco Use Types Packs/Day Years [...] on file Legal Sex Female 9:31 AM AIRCRAFT CAPTAIN Gender Identity Not on file Sexual Orientation Not on file documented as of this encounter Plan of Treatment Not on file documented as of this encounter Procedures Procedure Name Priority Date/Time Associated Diagnosis Comments DEVICE CHECK - IN OFFICE Routine 12/06/2023 12:41 PM CDT SSS (sick sinus syndrome) (CMS/HCC) (HCC) documented in this encounter Results * DEVICE CHECK - IN OFFICE (12/06/2023 12:41 PM CDT) Anatomical Region Laterality Modality Other Narrative 12/08/2023 4:24 PM CDT Table formatting from the original result was not included. PM CHECK (IN OFFICE) Patient ID: Francine Erwin is a 83 y.o. female This patient received a Medtronic Pacemaker. ??They had a routine in-office device interrogation on 12/06/23 Device implant indications: ??Sick sinus syndrome ?? Interrogation of the patient's device demonstrates the following: Presenting EGM: ??A paced V sensed @ 67 bpm Underlying rhythm: ??Not done Original Device Settings Right Atrium Right Ventricle Sensitivity (mV) 0.3 mV 2.0 mV Pacing Outputs 2.5 V @ 0.4 ms 2.0 V @ 0.4 ms Testing Measurements Right Atrium Right Ventricle Sensitivity (mV) 1.0 mV 7.3 mV Impedence (Ohms) 532 ohms 475 ohms Pace Threshold 1.25 V @ 0.4 ms 0.75 V @ 0.4 ms Pacing % 63.9 % 3.2 % Battery Status: ??12.9 years to SARMAD Episodes last 90 days/Comments: AF [place] 34 %, there were 28 episodes of AT/AF the longest lasting 47-1/2 hours, EGMs do show AT/AF with ventricular rates ranging from the 70s to 104 beats per minute. NORMAL DEVICE FUNCTION PROGRAMMED MEDICATIONS: Anti-coagulant(s): ??Pradaxa 150 mg twice daily Anti-arrhythmic(s): ??Toprol-XL 50 mg daily PLAN: 1) Medtronic Pacemaker evaluation 2) Medtronic remote transmission scheduled in 3 months. 3) Programming appropriate for device measurements Jaycob Mar RN Arnold Stout III, MD CV CARDIAC SERVICES PROCEDURES Final Result documented in this encounter Visit Diagnoses Diagnosis Cardiac pacemaker in situ- Primary SSS (sick sinus syndrome) (CMS/HCC) (HCC) Sinoatrial node dysfunction documented in this encounter Care Teams Game Designer/Creative Director Relationship Specialty Start Date End Date Luisa Mitchell DO [address] [place], [place] [id number] PCP - General Internal Medicine 08/11/22 Angie Riddle MD [address] [place] [address] Gynecology 08/19/16 documented as of this encounter
--- OUTSIDE RECORDS SUMMARY | 2024-03-01 05:49 | XMS_ITS | Data Portability ---
Author Organization Amy. Schofield Mai n Office Address [address] [place] [id number] Care Team Providers Care Community Health Advocate Name Role Phone DIXIE PIZARRO Ged Teacher [phone] JON LANDON Apartment Manager [phone] Assessment Encounter Date Assessment Date Assessment LastModified by Organization Details LastModified Time 07/05/2023 07/05/2023 Patient presente d to office today for their Medicare Annual Wellness Visit. Education was provided on healthy nutrition, including a diet rich in fruits and vegetables, minimizing simple carbohydrates, salt, and saturated fats. Encouraged regular cardiovascular exercise such as walking at least 30 minutes daily, 5 times per week. Emphasized preventive health measures and educated pt on fall prevention and community-based lifestyle interventions to help reduce health risks and promote healthy living. [email or web address] Not available 07/01/2023 13:16:15 Plan of Treatment Reminders Order Date Submit Date Provider Last Modified By Organization Details Last Modified Time Details Appointments None recorded. Lab TSH, serum or plasma 2023 024 [employer] [facility], [address], [place], [address], 4 10:13:20 vitamin B12 + folate, serum or blood 2023 024 [employer] [facility], [address], [place], [address], 4 10:13:20 vitamin D, 25-hydroxy, total, serum 2023 024 [employer] [facility], [address], [place], [address], 4 10:13:20 unlisted lab - liver fibrosis, fib 4 index panel 2023 024 [facility], [address], [place], [address], 4 10:13:21 CBC 2023 024 [facility], [address], [place], [address], 4 10:13:20 Referral neuropsycho logist referral 2023 024 [facility]NE [facility] , [address] [place], [address], 4 05:01:14 neurologist referral 2023 024 BRIANNE Steel MD, [address] [place], [address], 4 05:01:14 rheumatolog ist referral 2023 024 BRIANNE Geller MD, [facility], [place], [address], 4 15:45:[address] referral 2023 024 BRIANNE Armando MD, [address] [facility], [place], [address], 4 05:01:14 nanoelectronics engineer referral 2023 024 BRIANNE Not available 05:01:14 otolaryngol ogist referral 2023 024 [email or web address] Cecilio Brar MD, [address] [facility], [place], [address], 4 09:45:28 Procedures body composition analysis (PROC) 2023 024 Main Office, [address] [place] [address], [address], [place], [address], 4 12:15:12 gait test (PROC) 2023 024 Main Office, [address] [place] [address], [address], [place], [address], 4 12:15:12 Surgeries None recorded. Imaging XR, chest, 2 view 2022 023 [facility] (Radiology), [address] [place], [address], 3 13:24:05 electrocard iogram 2023 024 Main Office, [address] [place] [address], [address], [place], [address], 4 12:15:12 audiogram 2023 024 Main Office, [address] [place] [address], [address], [place], [address], 4 12:15:12 MRI, brain, w/wo contrast [address]), [address], [address], [place], [address], 4 09:45:17 DEXA, axial skeleton + vertebral fracture assessment [email or web address]), [address], [address], [place], [address], 4 09:45:17 MAMMO, screening, digital, bilateral [email or web address]), [address], [address], [place], [address], 4 11:48:34 CT, head + brain, w/ contrast 2023 024 [facility] ([facility]), [address], [place], [address], 4 12:54:40 DEXA, axial skeleton + vertebral fracture assessment 2023 024 [facility] ([facility]), [address], [address], [place], [address], 4 05:01:14 Medication Orders None recorded. Patient TargetsNo targets recorded. Patient Instructions Encounter Date Encounter Id Patient Instructions Last Modified By Organization Details Last Modified Time 06/15/2023 [id number] spirometry testing* Not avail able 06/15/2023 12:15:12 (MAEVE) ankle brac hial index* Not available 06/15/2023 12:15:12 signal constructor test* Not available 06/14 12:15:12 mini mental stat e exam* Not available 06/15/2023 12:15:12 epworth sleepine ss scale* Not available 06/15/2023 12:15:12 storm anxiety inventory* Not available 06/15/2023 12:15:12 functional asses sment screening* Not available 06/15/2023 12:15:12 07/05/2023 [id number] NEUROLOGY Hilario Rosales MD [address] [facility] [address] ([facility]) [address] [place] [address] Cecilio Ferrer MD [address] [facility] [address], [address] ([facility]) [place] [address] Cesar Bell MD--specializes in movement d/o's [facility] ? [address] [address] Floor: Lower Level [phone] Bahman Sung MD ([facility])--specializes in movement d/o's [address] [facility] [address]Door [address] [place] [address] Antonio Minaya MD [address], [place] [address] Marietta Steel MD, PhD Sees Patients For: Alzheimer's disease, neurodegenerative disease, neurodegenerative disorders, dementia, Parkinson's disease, memory loss, Lewy body dementia, cognitive function, geriatric neurology [address] [phone] [address]: [address] Floor: 6 Appointments: Jacquie Dunn MD [address] [place] [address] Arash Esposito MD ([facility])--2 Locations: [address] [place] [address] Suite: [phone] Also Located At: [address] [place] [address] Suite: [facility] [phone] Cora Shay MD Stroke Neurologist. physicians.[facility] Address: [address] [place] [address] Floor: 6, [address]: [address], [place] [id number] DERMATOLOGISTS: Lazara Wright MD [facility]--[place] riddhi [place] [email or web address] [email or web address].[email or web address] Danica De Leon MD [facility] [address], [address] [place] [address] Adán Masterson MD [address], [place] [address] Katarina Kevin MD [address], [place] [address] John Armando MD [address] [place] [address] [address] [place], [place] [address] [email or web address] / [facility] MD Jannette Shaffer MD [address] [place] [address] Sydnie Gupta MD [address] [facility] [address], [address] [place] [address] [email or web address] Yesica Law MD (Wei-Wei) PhD [address] [address] [email or web address] Abraham Madsen MD (located at [facility]) [address] [facility], [address] [place] [address] Cecilio Velazquez MD (Located at [facility]) www.[email or web address] Ideas [address] [facility], [address] [place] [address] Moises Armando MD [address] [facility] [place] [address] Trevor Garcia MD BigDealuc healthCombat Stroke [address] [facility] [address], [place] [address] Dermatological Care--[facility] Dr Rosa Ocasio MD PhD [address] [facility], [address], [place] [address] [email or web address] Bhakti Lindquist MD [facility] [address] [place] [address] Not available 07/05/2023 12:10:24 Exam Summary of your Wellness Services Dear Francine, I want to thank you for allowing me to perform your annual [facility] Wellness Exam. As you know, this program offers me the opportunity to thoroughly evaluate your health and be proactive in trying to detect future illness before it becomes overtly symptomatic. The screenings and tests also help to identify risk factors and asymptomatic stages of disease which enable us to intervene early and mitigate many of the severe ramifications they can pose. Results: ?? EKG (electrical tracing of your heart): Normal/Unchanged ?? Auditory exam (Hearing): Normal/Unchanged ?? MAEVE (measure of circulation in legs): Normal/Unchanged ?? Body composition (weight/muscle mass/body fat): ?? Gait (walking) speed: Normal ?? Spiral Binder strength: Normal ?? Functional capacity (sexual health/Memory): Normal ?? Depression screening: Normal ?? Anxiety screening: Normal ?? Diet: On target ?? Alcohol intake: Safe ?? Risk for sleep apnea: Normal ?? Labs: --inflammatory markers: normal --cholesterol: normal --A1C (measure of blood glucose): normal --TSH (thyroid): normal --Vitamin D: normal --urine: normal --Liver/Kidney function/Electrolytes : normal --white and red blood counts/platelets: normal --Others: normal Addition Tests Recommended: I ordered an MRI for you. 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 I have also ordered a mammogram and bone density to [facility]. ?? Immunizations that are recommended: I recommend renewing your tdap shot and shingrix. ?? Specialists to see: Make an appointment to see your forming machine adjuster and a new hat lining blocker (I gave you names in this paperwork); I have referred you to a neurologist, dr STEEL for concerns about your memory. I have referred you to a portable track line marker (Dr Geller) for your hands. I have referred you to a neuropsychologist (for further memory testing). Finally, I referred you to an nanoelectronics engineer and an vice chairman for your hearing. ?? Other Recommendations: STOP THE VITAMIN D. Dietary Recommendations: Mediterranean diet. Avoid gluten/ dairy/ processed foods. Focus on fruits/ vegetables. Consume 64 ounces water a day and avoid processed drinks like juice and soda. Please refer to the [facility] portal for recipes. Activity Recommendations: MOVE MOVE MOVE! Being sedentary is very inflammatory and detrimental to your health! Find something you enjoy and make it a daily routine. For you, I recommend: keep doing what you are doing! Thank you for entrusting me with your health. I hope you find this information helpful. If you have any questions, please feel free to contact me. I AM accepting new patients! Please let your friends or family know about my office if they are looking for a primary care doctor. Feel free to give them our front office number [phone] or my website: [email or web address]. If you are happy with my services, it would help me greatly if you would fill out a review or simply give 5 stars at these websites: [email or web address], vitalsCirqle, Hi-Dis(Mosen), Intermedia. Just search my name and leave a review. This is much appreciated! Sincerely, Luisa Storm DO Not available 07/05/2023 12:34:36 07/05/2023 [id number] We reviewed your current medical conditions and specialists consultations in detail, as well as your labs and testing. We reviewed risks associated with pain, nutrition, hydration, sleep, stress, activity and sexual health. Risks of alcohol, caffeine, and tobacco use reviewed. Preventive services were reviewed and offered available/appropriate services. Reviewed personal, home and driving safety. Exam Summary of your Wellness Services Dear Francine, I want to thank you for allowing me to perform your annual [facility] Wellness Exam. As you know, this program offers me the opportunity to thoroughly evaluate your health and be proactive in trying to detect future illness before it becomes overtly symptomatic. The screenings and tests also help to identify risk factors and asymptomatic stages of disease which enable us to intervene early and mitigate many of the severe ramifications they can pose. Results: ?? EKG (electrical tracing of your heart): Normal/Unchanged ?? Auditory exam (Hearing): Normal/Unchanged ?? MAEVE (measure of circulation in legs): Normal/Unchanged ?? Body composition (weight/muscle mass/body fat): ?? Gait (walking) speed: Normal ?? Spiral Binder strength: Normal ?? Functional capacity (sexual health/Memory): Normal ?? Depression screening: Normal ?? Anxiety screening: Normal ?? Diet: On target ?? Alcohol intake: Safe ?? Risk for sleep apnea: Normal ?? Labs: --inflammatory markers: normal --cholesterol: normal --A1C (measure of blood glucose): normal --TSH (thyroid): normal --Vitamin D: normal --urine: normal --Liver/Kidney function/Electrolytes : normal --white and red blood counts/platelets: normal --Others: normal Addition Tests Recommended: I ordered an MRI for you. 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 I have also ordered a mammogram and bone density to [facility]. ?? Immunizations that are recommended: I recommend renewing your tdap shot and shingrix. ?? Specialists to see: Make an appointment to see your forming machine adjuster and a new hat lining blocker (I gave you names in this paperwork); I have referred you to a neurologist, dr STEEL for concerns about your memory. I have referred you to a portable track line marker (Dr Geller) for your hands. I have referred you to a neuropsychologist (for further memory testing). Finally, I referred you to an nanoelectronics engineer and an vice chairman for your hearing. ?? Other Recommendations: STOP THE VITAMIN D. Dietary Recommendations: Mediterranean diet. Avoid gluten/ dairy/ processed foods. Focus on fruits/ vegetables. Consume 64 ounces water a day and avoid processed drinks like juice and soda. Please refer to the PixSpree portal for recipes. Activity Recommendations: MOVE MOVE MOVE! Being sedentary is very inflammatory and detrimental to your health! Find something you enjoy and make it a daily routine. For you, I recommend: keep doing what you are doing! Thank you for entrusting me with your health. I hope you find this information helpful. If you have any questions, please feel free to contact me. I AM accepting new patients! Please let your friends or family know about my office if they are looking for a primary care doctor. Feel free to give them our front office number [phone] or my website: [email or web address]. If you are happy with my services, it would help me greatly if you would fill out a review or simply give 5 stars at these websites: PST Tankers.EcoLogicLiving/Windar Photonics, vitals.EcoLogicLiving, webOnset Technology.EcoLogicLiving, healthProLedge Bookkeeping Servicess.EcoLogicLiving. Just search my name and leave a review. This is much appreciated! 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 Referring Physician: Luisa Storm, Internal Medicine, Encounter Date: 07/05/2023 Hotel Clerk Referral for H istory of malignant neoplasm of skin Referring Physician: Luisa Storm, Internal Medicine, Encounter Date: 07/05/2023 Results Created Date Observation Date Name Description Value Unit Range Abnormal Flag Note LastModifiedBy Organization Detail LastModifiedTime 06/15/19 24 06/15/2023 storm anxie ty inven tory* Total Score 4 Not Available Main O ffice [address], [address], 06/15/2023 10:48:19 06/15/19 24 06/15/2023 storm anxie ty inven tory* Indication Minima l anxiet y Not Available Main Office [address] [place] [address], [address], 06/15/2023 10:48:19 06/15/19 24 06/15/2023 epwor th sleep iness scale * Total Score 1 Not Available Main O ffice [address] [place] [address], [address], 06/15/2023 10:48:18 06/15/19 24 06/15/2023 epwor th sleep iness scale * Indication normal Not Available Main Of fice [address] [place] [address], [address], 06/15/2023 10:48:18 06/15/19 24 06/15/2023 mini menta l state exam* Total Score 24 Not Available Main O ffice [address], [address], 06/15/2023 10:48:17 06/15/19 24 06/15/2023 gait test (PROC ) Time taken to walk 4 meters 3.09 second s Not Available Main Office [address], [address], 06/15/2023 10:48:06 06/15/19 24 06/15/2023 gait test (PROC ) Gait speed in meters per second 1.29 Not Available Main Office [address], [address], 06/15/2023 10:48:06 06/15/19 24 06/15/2023 signal constructor test* Unknown Analyte 33.0 Not Available Main O ffice [address], [address], 06/15/2023 10:48:06 06/15/19 24 06/15/2023 signal constructor test* Unknown Analyte 36.3 Not Available Main O ffice [address] [place] [address], [address], 06/15/2023 10:48:06 06/15/19 24 06/15/2023 signal constructor test* Unknown Analyte 39.0 Not Available Main O ffice [address] [place] [address], [address], 06/15/2023 10:48:06 06/15/19 24 06/15/2023 signal constructor test* Unknown Analyte 35.4 Not Available Main O ffice [address] [place] [address], [address], 06/15/2023 10:48:06 06/15/19 24 06/15/2023 signal constructor test* Unknown Analyte 31.7 Not Available Main O ffice [address] [place] [address], [address], 06/15/2023 10:48:06 06/15/19 24 06/15/2023 signal constructor test* Unknown Analyte 30.2 Not Available Main O ffice [address] [place] [address], [address], 06/15/2023 10:48:06 06/15/19 24 06/15/2023 body compo sitio n linnette sis (PROC ) Status if Not Performed Other: see note Not Available Main Office [address] [place] [address], [place], [address], 06/15/2023 10:48:05 06/15/19 24 06/15/2023 (MAEVE) ankle brach ial index * Arm- Right 130 Not Available Main Of fice [address] [place] [address], [place], [address], 06/15/2023 10:48:05 06/15/19 24 06/15/2023 (MAEVE) ankle brach ial index * Arm- Left 120 Not Available Main Off ice [address] [place] [address], [place], [address], 06/15/2023 10:48:05 06/15/19 24 06/15/2023 (MAEVE) ankle brach ial index * Leg- Right 170 Not Available Main Of fice [address] [place] [address], [place], [address], 06/15/2023 10:48:05 06/15/19 24 06/15/2023 (MAEVE) ankle brach ial index * Leg- Left 160 Not Available Main Off ice [address] [place] [address], [place], [address], 06/15/2023 10:48:05 06/15/19 24 06/15/2023 (MAEVE) ankle brach ial index * MAEVE Pressure- Right 1.30 Not Available Main O ffice [address] [place] [address], [place], [address], 06/15/2023 10:48:05 06/15/19 24 06/15/2023 (MAEVE) ankle brach ial index * MAEVE Pressure- Left 1.33 Not Available Main O ffice [address] [place] [address], [place], [address], 06/15/2023 10:48:05 06/15/19 24 06/15/2023 thao metry testi ng* Spirometry normal Not Available Main Of fice [address], [address], 06/15/2023 10:48:05 06/15/19 24 06/15/2023 funct ional asses sment scree niki* Gender Female Not Available Main Offic e [address] [facility] [address], [place], [address], 06/15/2023 10:48:20 06/15/19 24 06/15/2023 funct ional asses sment scree niki* Results Discus sed Not Available Main Office [address] [address], [place], [address], 06/15/2023 10:48:20 06/18/19 24 06/18/2023 APOLI POPRO TEIN B apolipoprote in B 69 mg/dL <90 Risk: Optim al <90 mg/dL ; Moder ate 90-11 9 mg/dL ; High >= 120 mg/dL ; Cardi ovasc ular event risk categ ory cut point s (opti mal, moder ate, high) are based on Natio nal Lipid Assoc iatio n recom lrone dolan TA et al. J of Clin Lipid . 2015; 9: 129-1 69 and Morgan ESTEBAN et al. Endoc r Pract . 2017; 23(Garnica ppl 2):1- 87. Not Available [facility] - Manual Order Only [address], [place], [address], 06/22/2023 14:25:19 06/18/19 24 06/18/2023 HSCRP hs-CRP <0.3 mg/L <1.0 The AHA/C DC Guide lines recom mend hs-CR P range s for ident ifyin g Relat peter Cardi ovasc ular Risk in patie nts ages >17 years : <1.0 mg/L Lower Relat peter Cardi ovasc ular Risk; 1.0-3 .0 mg/L Clarissa ge Relat peter Cardi ovasc ular Risk; 3.1-1 0.0 mg/L Highe r Relat peter Cardi ovasc ular Risk. For patie nts with highe r cardi ovasc ular risk, consi monty retes ting in 1-2 weeks to exclu de a benig n trans ient eleva tion secon onofre to infec tion or infla mmati on from the basel ine CRP value . Persi stent eleva tions of >10.0 mg/L upon retes ting may be assoc iated with infec tion and infla mmati on. The AHA/C DC recom menda tions are based on Pears on TA et al. Circu latio n. 2003; 107:4 99-51 1. Not Available [facility] - Manual Order Only [address], [place], [address], 06/22/2023 14:25:20 06/18/19 24 06/18/2023 LIPID PANEL cholesterol, total 153 mg/dL <200 Not Available [facility] - Manual Order Only [address], [place], [address], 06/22/2023 14:25:21 06/18/19 24 06/18/2023 LIPID PANEL HDL cholesterol 59 mg/dL >49 Not Available [facility] - Manual Order Only [address], [place], [address], 06/22/2023 14:25:21 06/18/19 24 06/18/2023 LIPID PANEL triglyceride s 115 mg/dL <150 Not Available [facility] - Manual Order Only [address], [place], [address], 06/22/2023 14:25:21 06/18/19 24 06/18/2023 LIPID PANEL LDL cholesterol 74 mg/dL _(miguel a c) <100 Codie able range <100 mg/dL for prima ry preve ntion ; <70 mg/dL for patie nts with CHD or diabe tic patie nts with >= 2 CHD risk facto rs. LDL-C is now calcu lated using the Raysa n-Hop kins eleni hayes, which is a valid ated novel miguel sky r accur acy than the Fried brook davisat ion in the estim ation of LDL-C . Raysa hayes SS et al. DI. 2013; 310(1 9): 2061- 2068 (http ://ed ucati on.Qu estDi StraighterLines. com/f aq/FA Q164) Not Available [facility] - Manual Order Only [address], [place], [address], 06/22/2023 14:25:21 06/18/19 24 06/18/2023 LIPID PANEL chol/HDL-C 2.6 calc <5.0 Not Available [facility] - Manual Order Only [address], [place], [address], 06/22/2023 14:25:21 06/18/19 24 06/18/2023 LIPID PANEL non-HDL cholesterol 94 mg/dL _(miguel a c) <130 For patie nts with diabe diana plus 1 major ASCVD risk facto r, treat ing to a non-H DL-C goal of <100 mg/dL (LDL- C of <70 mg/dL ) is consi dered a thera peayazi c optio n. Not Available [facility] - Manual Order Only [address], [place], [address], 06/22/2023 14:25:21 06/18/19 24 06/18/2023 LP-PL A2 ACTIV ITY LP-pla2 activity 92 nmol/ min/m L <124 Relat peter Risk: Optim al <=123 nmol/ min/m L; High >123 nmol/ min/m L.Thi s test was devel oped and its linnette tical perfo rmanc e heri cteri stics have been deter mined by [facility] [place] [facility] at [facility]. It has not been clear ed or appro sabino by the U.S. Food and Drug Admin istra tion. This assay has been valid ated pursu ant to the CLIA regul ation s and is used for clini miguel a purpo ses. Not Available [facility] - Manual Order Only [address], [place], [address], 06/22/2023 14:25:21 06/18/19 24 06/18/2023 CBC WITH DIFFE RENTI AL WBC 5.7 K/uL 3.8-10 .8 Not Available [facility] - Manual Order Only [address], [place], [address], 06/22/2023 14:25:22 06/18/19 24 06/18/2023 CBC WITH DIFFE RENTI AL RBC 4.75 M/uL 3.80-5 .10 Not Available [facility] - Manual Order Only [address], [place], [address], 06/22/2023 14:25:22 06/18/19 24 06/18/2023 CBC WITH DIFFE RENTI AL hemoglobin 15.2 g/dL 11.7-1 5.5 Not Available [facility] Center - Manual Order Only [address], [place], [address], 06/22/2023 14:25:22 06/18/19 24 06/18/2023 CBC WITH DIFFE RENTI AL hematocrit 46.1 % 35.0-4 5.0 high Not Available [facility] - Manual Order Only [address], [place], [address], 06/22/2023 14:25:22 06/18/19 24 06/18/2023 CBC WITH DIFFE RENTI AL MCV 97.1 fL 80.0-1 00.0 Not Available [facility] - Manual Order Only [address], [place], [address], 06/22/2023 14:25:22 06/18/19 24 06/18/2023 CBC WITH DIFFE RENTI AL MCH 32.0 pg 27.0-3 3.0 Not Available [facility] - Manual Order Only [address], [place], [address], 06/22/2023 14:25:22 06/18/19 24 06/18/2023 CBC WITH DIFFE RENTI AL MCHC 33.0 g/dL 32.0-3 6.0 Not Available [facility] - Manual Order Only [address], [place], [address], 06/22/2023 14:25:22 06/18/19 24 06/18/2023 CBC WITH DIFFE RENTI AL red cell distribution width 13.0 % 11.0-1 5.0 Not Available [facility] - Manual Order Only [address], [place], [address], 06/22/2023 14:25:22 06/18/19 24 06/18/2023 CBC WITH DIFFE RENTI AL platelet count 197 K/uL 140-40 0 Not Available [facility] - Manual Order Only [address], [place], [address], 06/22/2023 14:25:22 06/18/19 24 06/18/2023 CBC WITH DIFFE RENTI AL mean platelet volume 12.2 fL 7.5-12 .5 Not Available [facility] - Manual Order Only [address], [place], [address], 06/22/2023 14:25:22 06/18/19 24 06/18/2023 CBC WITH DIFFE RENTI AL neutrophil % 48.1 % 38.0-8 0.0 Not Available [facility] - Manual Order Only [address], [place], [address], 06/22/2023 14:25:22 06/18/19 24 06/18/2023 CBC WITH DIFFE RENTI AL neutrophil absolute 2.75 K/uL 1.50-7 .80 Not Available [facility] - Manual Order Only [address], [place], [address], 06/22/2023 14:25:22 06/18/19 24 06/18/2023 CBC WITH DIFFE RENTI AL lymphocyte % 40.4 % 15.0-4 9.0 Not Available [facility] - Manual Order Only [address], [place], [address], 06/22/2023 14:25:22 06/18/19 24 06/18/2023 CBC WITH DIFFE RENTI AL lymphocyte absolute 2.31 K/uL 0.85-3 .90 Not Available [facility] - Manual Order Only [address], [place], [address], 06/22/2023 14:25:22 06/18/19 24 06/18/2023 CBC WITH DIFFE RENTI AL monocyte % 8.4 % 0.0-13 .0 Not Available [facility] - Manual Order Only [address], [place], [address], 06/22/2023 14:25:22 06/18/19 24 06/18/2023 CBC WITH DIFFE RENTI AL monocyte absolute 0.48 K/uL 0.20-0 .95 Not Available [facility] - Manual Order Only [address], [place], [address], 06/22/2023 14:25:22 06/18/19 24 06/18/2023 CBC WITH DIFFE RENTI AL eosinophil % 2.8 % 0.0-8. 0 Not Available [facility] - Manual Order Only [address], [place], [address], 06/22/2023 14:25:22 06/18/19 24 06/18/2023 CBC WITH DIFFE RENTI AL eosinophil absolute 0.16 K/uL 0.00-0 .50 Not Available [facility] - Manual Order Only [address], [place], [address], 06/22/2023 14:25:22 06/18/19 24 06/18/2023 CBC WITH DIFFE RENTI AL basophil % 0.3 % 0.0-2. 0 Not Available [facility] - Manual Order Only [address], [place], [address], 06/22/2023 14:25:22 06/18/19 24 06/18/2023 CBC WITH DIFFE RENTI AL basophil absolute 0.02 K/uL 0.00-0 .20 Not Available [facility] - Manual Order Only [address], [place], [address], 06/22/2023 14:25:22 06/18/19 24 06/18/2023 LIVER FIBRO SIS, CMP (PANE L WFIB- 4 INDEX ) glucose 86 mg/dL 65-99 Not Available [facility] - Manual Order Only [address], [place], [address], 06/22/2023 14:25:22 06/18/19 24 06/18/2023 LIVER FIBRO SIS, CMP (PANE L WFIB- 4 INDEX ) calcium, total 9.9 mg/dL 8.5-10 .5 Not Available [facility] - Manual Order Only [address], [place], [address], 06/22/2023 14:25:22 06/18/19 24 06/18/2023 LIVER FIBRO SIS, CMP (PANE L WFIB- 4 INDEX ) sodium 142 mmol/ L 136-14 5 Not Available [facility] - Manual Order Only [address], [place], [address], 06/22/2023 14:25:22 06/18/19 24 06/18/2023 LIVER FIBRO SIS, CMP (PANE L WFIB- 4 INDEX ) potassium 4.2 mmol/ L 3.5-5. 1 Not Available [facility] - Manual Order Only [address], [place], [address], 06/22/2023 14:25:22 06/18/19 24 06/18/2023 LIVER FIBRO SIS, CMP (PANE L WFIB- 4 INDEX ) chloride 99 mmol/ L 95-108 Not Available [facility] - Manual Order Only [address], [place], [address], 06/22/2023 14:25:22 06/18/19 24 06/18/2023 LIVER FIBRO SIS, CMP (PANE L WFIB- 4 INDEX ) CO2 (carbon dioxide) 26 mmol/ L 21-33 Not Available [facility] - Manual Order Only [address], [place], [address], 06/22/2023 14:25:22 06/18/19 24 06/18/2023 LIVER FIBRO SIS, CMP (PANE L WFIB- 4 INDEX ) BUN (blood urea nitrogen) 19 mg/dL 8-23 Not Available [facility] - Manual Order Only [address], [place], [address], 06/22/2023 14:25:22 06/18/19 24 06/18/2023 LIVER FIBRO SIS, CMP (PANE L WFIB- 4 INDEX ) creatinine 0.86 mg/dL 0.60-0 .95 Not Available [facility] - Manual Order Only [address], [place], [address], 06/22/2023 14:25:22 06/18/19 24 06/18/2023 LIVER FIBRO SIS, CMP (PANE L WFIB- 4 INDEX ) protein, total 7.1 g/dL 6.1-8. 0 Not Available [facility] - Manual Order Only [address], [place], [address], 06/22/2023 14:25:22 06/18/19 24 06/18/2023 LIVER FIBRO SIS, CMP (PANE L WFIB- 4 INDEX ) albumin 4.8 g/dL 3.5-5. 5 Not Available [facility] - Manual Order Only [address], [place], [address], 06/22/2023 14:25:22 06/18/19 24 06/18/2023 LIVER FIBRO SIS, CMP (PANE L WFIB- 4 INDEX ) globulin 2.3 g/dL_ (calc ) 1.8-3. 8 Not Available [facility] - Manual Order Only [address], [place], [address], 06/22/2023 14:25:22 06/18/19 24 06/18/2023 LIVER FIBRO SIS, CMP (PANE L WFIB- 4 INDEX ) albumin/glob ulin ratio 2.1 calc 1.0-2. 5 Not Available [facility] - Manual Order Only [address], [place], [address], 06/22/2023 14:25:22 06/18/19 24 06/18/2023 LIVER FIBRO SIS, CMP (PANE L WFIB- 4 INDEX ) alkaline phosphatase 59 U/L <150 Not Available [facility] - Manual Order Only [address], [place], [address], 06/22/2023 14:25:22 06/18/19 24 06/18/2023 LIVER FIBRO SIS, CMP (PANE L WFIB- 4 INDEX ) alanine aminotransfe rase (ALT) 17 U/L 6-29 Not Available [facility] - Manual Order Only [address], [place], [address], 06/22/2023 14:25:22 06/18/19 24 06/18/2023 LIVER FIBRO SIS, CMP (PANE L WFIB- 4 INDEX ) aspartate aminotransfe rase (AST) 24 U/L 10-35 Not Available [facility] - Manual Order Only [address], [place], [address], 06/22/2023 14:25:22 06/18/19 24 06/18/2023 LIVER FIBRO SIS, CMP (PANE L WFIB- 4 INDEX ) bilirubin, total 0.5 mg/dL <1.3 Not Available [facility] - Manual Order Only [address], [place], [address], 06/22/2023 14:25:22 06/18/19 24 06/18/2023 LIVER FIBRO SIS, CMP (PANE L WFIB- 4 INDEX ) platelet count 197 K/uL 140-40 0 Not Available [facility] - Manual Order Only [address], [place], [address], 06/22/2023 14:25:22 06/18/19 24 06/18/2023 LIVER FIBRO SIS, CMP (PANE L WFIB- 4 INDEX ) fib-4 index 2.40 calc <1.30 high Not Available [facility] - Manual Order Only [address], [place], [address], 06/22/2023 14:25:22 06/18/19 24 06/18/2023 LIVER FIBRO SIS, CMP (PANE L WFIB- 4 INDEX ) fib-4 interpretati on SEE COMMEN T Indiv idual s with NAFLD : FIB-4 index resul t 1.30- 2.67 is indet ermin ate for advan jose liver fibro sis (F3-F 4). Indiv idual s with Hepat itis B: FIB-4 index resul t 1.00- 2.65 is indet ermin ate for advan jose liver fibro sis (F3-F 4). Indiv idual s with Hepat itis C: FIB-4 index resul t 1.45- 3.25 is indet ermin ate for advan jose liver fibro sis (F3-F 4). The FIB-4 Index is a score calcu lated from patie nt age and three labor atory measu res (AST, ALT, and plate let count ) to asses s likel ihood of advan jose liver fibro sis (stag e F3 or F4) in indiv idual s with NAFLD (non- alcoh olic fatty liver disea se), Hepat itis B, or Hepat itis C. Patie nt heri cteri stics and clini miguel a featu res shoul d guide inter preta tion. The appli catio n of the FIB-4 index to evalu ate NAFLD in pedia tric age group s is limit ed. FIB-4 index range s for indiv idual s with NAFLD : Low <1.30 , Indet ermin ate 1.30- 2.67, High >2.67 ; FIB-4 index range s for indiv idual s with Hepat itis B: Low <1.00 , Indet ermin ate 1.00- 2.65, High >2.65 ; FIB-4 index range s for indiv idual s with Hepat itis C: Low <1.45 , Indet ermin ate 1.45- 3.25, High >3.25 . Refer ences : Singh AG, Daren montelongo A, Benito y K, et al. Brent rison of nonin vasiv e marke rs of fibro sis in patie nts with nonal cohol ic fatty liver disea se. Clin Gastr oente rol Hepat ol. 2009; 7(10) :1104 -1112 . doi:1 0.101 6/j.c .20 11.03 .033. Epifanio BARNHART, Myron CH, et al. A pract ical clini miguel a appro ach to liver fibro sis. Singa pore Med J. 2018; 59(12 ):628 -633. Doi:1 0.116 22/ edj.2 69401 5. For addit lindsey hu visit : www.Nemesio ucaitlinD iagno stics .com/ NAFLD Not Available [facility] - Manual Order Only [address], [place], [address], 06/22/2023 14:25:22 06/18/19 24 06/18/2023 LIVER FIBRO SIS, CMP (PANE L WFIB- 4 INDEX ) BUN/creatini ne ratio NOT APPLIC ABLE calc 6- Not Available [facility] - Manual Order Only [address], [place], [address], 06/22/2023 14:25:22 06/18/19 24 06/18/2023 LIVER FIBRO SIS, CMP (PANE L WFIB- 4 INDEX ) eGFR 68 mL/mi n/1.7 3m_sq uared >59 The eGFR is based on the CKD-E PI 2020 equat ion. To calcu late the new eGFR from a previ ous Creat inine or Cysta tin C resul t, go to https ://mart fung.o rg/pr anna marie baron s/kdo qi/gf r%5Fc alcul ator. Not Available [facility] - Manual Order Only [address], [place], [address], 06/22/2023 14:25:22 06/18/19 24 06/18/2023 LIVER FIBRO SIS, CMP (PANE L WFIB- 4 INDEX ) glucose 86 mg/dL 65-99 Not Available [facility] - Manual Order Only [address], [place], [address], 06/22/2023 14:25:22 06/18/19 24 06/18/2023 LIVER FIBRO SIS, CMP (PANE L WFIB- 4 INDEX ) calcium, total 9.9 mg/dL 8.5-10 .5 Not Available [facility] - Manual Order Only [address], [place], [address], 06/22/2023 14:25:22 06/18/19 24 06/18/2023 LIVER FIBRO SIS, CMP (PANE L WFIB- 4 INDEX ) sodium 142 mmol/ L 136-14 5 Not Available [facility] - Manual Order Only [address], [place], [address], 06/22/2023 14:25:22 06/18/19 24 06/18/2023 LIVER FIBRO SIS, CMP (PANE L WFIB- 4 INDEX ) potassium 4.2 mmol/ L 3.5-5. 1 Not Available [facility] - Manual Order Only [address], [place], [address], 06/22/2023 14:25:22 06/18/19 24 06/18/2023 LIVER FIBRO SIS, CMP (PANE L WFIB- 4 INDEX ) chloride 99 mmol/ L 95-108 Not Available [facility] - Manual Order Only [address], [place], [address], 06/22/2023 14:25:22 06/18/19 24 06/18/2023 LIVER FIBRO SIS, CMP (PANE L WFIB- 4 INDEX ) CO2 (carbon dioxide) 26 mmol/ L 21-33 Not Available [facility] - Manual Order Only [address], [place], [address], 06/22/2023 14:25:22 06/18/19 24 06/18/2023 LIVER FIBRO SIS, CMP (PANE L WFIB- 4 INDEX ) BUN (blood urea nitrogen) 19 mg/dL 8-23 Not Available [facility] - Manual Order Only [address], [place], [address], 06/22/2023 14:25:22 06/18/19 24 06/18/2023 LIVER FIBRO SIS, CMP (PANE L WFIB- 4 INDEX ) creatinine 0.86 mg/dL 0.60-0 .95 Not Available [facility] - Manual Order Only [address], [place], [address], 06/22/2023 14:25:22 06/18/19 24 06/18/2023 LIVER FIBRO SIS, CMP (PANE L WFIB- 4 INDEX ) protein, total 7.1 g/dL 6.1-8. 0 Not Available [facility] - Manual Order Only [address], [place], [address], 06/22/2023 14:25:22 06/18/19 24 06/18/2023 LIVER FIBRO SIS, CMP (PANE L WFIB- 4 INDEX ) albumin 4.8 g/dL 3.5-5. 5 Not Available [facility] - Manual Order Only [address], [place], [address], 06/22/2023 14:25:22 06/18/19 24 06/18/2023 LIVER FIBRO SIS, CMP (PANE L WFIB- 4 INDEX ) globulin 2.3 g/dL_ (calc ) 1.8-3. 8 Not Available [facility] - Manual Order Only [address], [place], [address], 06/22/2023 14:25:22 06/18/19 24 06/18/2023 LIVER FIBRO SIS, CMP (PANE L WFIB- 4 INDEX ) albumin/glob ulin ratio 2.1 calc 1.0-2. 5 Not Available [facility] - Manual Order Only [address], [place], [address], 06/22/2023 14:25:22 06/18/19 24 06/18/2023 LIVER FIBRO SIS, CMP (PANE L WFIB- 4 INDEX ) alkaline phosphatase 59 U/L <150 Not Available [facility] - Manual Order Only [address], [place], [address], 06/22/2023 14:25:22 06/18/19 24 06/18/2023 LIVER FIBRO SIS, CMP (PANE L WFIB- 4 INDEX ) alanine aminotransfe rase (ALT) 17 U/L 6-29 Not Available [facility] - Manual Order Only [address], [place], [address], 06/22/2023 14:25:22 06/18/19 24 06/18/2023 LIVER FIBRO SIS, CMP (PANE L WFIB- 4 INDEX ) aspartate aminotransfe rase (AST) 24 U/L 10-35 Not Available [facility] - Manual Order Only [address], [place], [address], 06/22/2023 14:25:22 06/18/19 24 06/18/2023 LIVER FIBRO SIS, CMP (PANE L WFIB- 4 INDEX ) bilirubin, total 0.5 mg/dL <1.3 Not Available [facility] - Manual Order Only [address], [place], [address], 06/22/2023 14:25:22 06/18/19 24 06/18/2023 LIVER FIBRO SIS, CMP (PANE L WFIB- 4 INDEX ) platelet count 197 K/uL 140-40 0 Not Available [facility] [address], [place], [address], 06/22/2023 14:25:22 06/18/19 24 06/18/2023 LIVER FIBRO SIS, CMP (PANE L WFIB- 4 INDEX ) fib-4 index 2.40 calc <1.30 high Not Available [facility] - Manual Order Only [address], [place], [address], 06/22/2023 14:25:22 06/18/19 24 06/18/2023 LIVER FIBRO SIS, CMP (PANE L WFIB- 4 INDEX ) fib-4 interpretati on SEE COMMEN T Indiv idual s with NAFLD : FIB-4 index resul t 1.30- 2.67 is indet ermin ate for advan jose liver fibro sis (F3-F 4). Indiv idual s with Hepat itis B: FIB-4 index resul t 1.00- 2.65 is indet ermin ate for advan jose liver fibro sis (F3-F 4). Indiv idual s with Hepat itis C: FIB-4 index resul t 1.45- 3.25 is indet ermin ate for advan jose liver fibro sis (F3-F 4). The FIB-4 Index is a score calcu lated from patie nt age and three labor atory measu res (AST, ALT, and plate let count ) to asses s likel ihood of advan jose liver fibro sis (stag e F3 or F4) in indiv idual s with NAFLD (non- alcoh olic fatty liver disea se), Hepat itis B, or Hepat itis C. Patie nt heri cteri stics and clini miguel a featu res shoul d guide inter preta tion. The appli catio n of the FIB-4 index to evalu ate NAFLD in pedia tric age group s is limit ed. FIB-4 index range s for indiv idual s with NAFLD : Low <1.30 , Indet ermin ate 1.30- 2.67, High >2.67 ; FIB-4 index range s for indiv idual s with Hepat itis B: Low <1.00 , Indet ermin ate 1.00- 2.65, High >2.65 ; FIB-4 index range s for indiv idual s with Hepat itis C: Low <1.45 , Indet ermin ate 1.45- 3.25, High >3.25 . Refer ences : Singh AG, Daren montelongo A, Benito y K, et al. Brent rison of nonin vasiv e marke rs of fibro sis in patie nts with nonal cohol ic fatty liver disea se. Clin Gastr oente rol Hepat ol. 2009; 7(10) :1104 -1112 . doi:1 0.101 6/j.c gh.20 05 .033. Epifanio BARNHART, Myron CH, et al. A pract ical clini miguel a appro ach to liver fibro sis. Singa pore Med J. 2018; 59(12 ):628 -633. Doi:1 0.116 22/ edj.2 79291 5. For addit lindsey hu e visit : www.Nemesio uestD iagno [employer]s .com/ NAFLD Not Available [facility] - Manual Order Only [address], [place], [address], 06/22/2023 14:25:22 06/18/19 24 06/18/2023 LIVER FIBRO SIS, CMP (PANE L WFIB- 4 INDEX ) BUN/creatini ne ratio NOT APPLIC ABLE calc 08-20 Not Available [facility] - Manual Order Only [address], [place], [address], 06/22/2023 14:25:22 06/18/19 24 06/18/2023 LIVER FIBRO SIS, CMP (PANE L WFIB- 4 INDEX ) eGFR 68 mL/mi n/1.7 3m_sq uared >59 The eGFR is based on the CKD-E PI 2020 equat ion. To calcu late the new eGFR from a previ ous Creat inine or Cysta tin C resul t, go to https ://mart rendony.o rg/pr ofess ional s/kdo qi/gf r%5Fc alcul ator. Not Available [facility] - Manual Order Only [address], [place], [address], 06/22/2023 14:25:22 06/18/19 24 06/18/2023 LIVER FIBRO SIS, CMP (PANE L WFIB- 4 INDEX ) glucose 86 mg/dL 65-99 Not Available [facility] - Manual Order Only [address], [place], [address], 06/22/2023 14:25:22 06/18/19 24 06/18/2023 LIVER FIBRO SIS, CMP (PANE L WFIB- 4 INDEX ) calcium, total 9.9 mg/dL 8.5-10 .5 Not Available [facility] - Manual Order Only [address], [place], [address], 06/22/2023 14:25:22 06/18/19 24 06/18/2023 LIVER FIBRO SIS, CMP (PANE L WFIB- 4 INDEX ) sodium 142 mmol/ L 136-14 5 Not Available [facility] - Manual Order Only [address], [place], [address], 06/22/2023 14:25:22 06/18/19 24 06/18/2023 LIVER FIBRO SIS, CMP (PANE L WFIB- 4 INDEX ) potassium 4.2 mmol/ L 3.5-5. 1 Not Available [facility] - Manual Order Only [address], [place], [address], 06/22/2023 14:25:22 06/18/19 24 06/18/2023 LIVER FIBRO SIS, CMP (PANE L WFIB- 4 INDEX ) chloride 99 mmol/ L 95-108 Not Available [facility] - Manual Order Only [address], [place], [address], 06/22/2023 14:25:22 06/18/19 24 06/18/2023 LIVER FIBRO SIS, CMP (PANE L WFIB- 4 INDEX ) CO2 (carbon dioxide) 26 mmol/ L 21-33 Not Available [facility] - Manual Order Only [address], [place], [address], 06/22/2023 14:25:22 06/18/19 24 06/18/2023 LIVER FIBRO SIS, CMP (PANE L WFIB- 4 INDEX ) BUN (blood urea nitrogen) 19 mg/dL 8-23 Not Available [facility] - Manual Order Only [address], [place], [address], 06/22/2023 14:25:22 06/18/19 24 06/18/2023 LIVER FIBRO SIS, CMP (PANE L WFIB- 4 INDEX ) creatinine 0.86 mg/dL 0.60-0 .95 Not Available [facility] - Manual Order Only [address], [place], [address], 06/22/2023 14:25:22 06/18/19 24 06/18/2023 LIVER FIBRO SIS, CMP (PANE L WFIB- 4 INDEX ) protein, total 7.1 g/dL 6.1-8. 0 Not Available [facility] - Manual Order Only [address], [place], [address], 06/22/2023 14:25:22 06/18/19 24 06/18/2023 LIVER FIBRO SIS, CMP (PANE L WFIB- 4 INDEX ) albumin 4.8 g/dL 3.5-5. 5 Not Available [facility] - Manual Order Only [address], [place], [address], 06/22/2023 14:25:22 06/18/19 24 06/18/2023 LIVER FIBRO SIS, CMP (PANE L WFIB- 4 INDEX ) globulin 2.3 g/dL_ (calc ) 1.8-3. 8 Not Available [facility] - Manual Order Only [address], [place], [address], 06/22/2023 14:25:22 06/18/19 24 06/18/2023 LIVER FIBRO SIS, CMP (PANE L WFIB- 4 INDEX ) albumin/glob ulin ratio 2.1 calc 1.0-2. 5 Not Available [facility] - Manual Order Only [address], [place], [address], 06/22/2023 14:25:22 06/18/19 24 06/18/2023 LIVER FIBRO SIS, CMP (PANE L WFIB- 4 INDEX ) alkaline phosphatase 59 U/L <150 Not Available [facility] - Manual Order Only [address], [place], [address], 06/22/2023 14:25:22 06/18/19 24 06/18/2023 LIVER FIBRO SIS, CMP (PANE L WFIB- 4 INDEX ) alanine aminotransfe rase (ALT) 17 U/L 6-29 Not Available [facility] - Manual Order Only [address], [place], [address], 06/22/2023 14:25:22 06/18/19 24 06/18/2023 LIVER FIBRO SIS, CMP (PANE L WFIB- 4 INDEX ) aspartate aminotransfe rase (AST) 24 U/L 10-35 Not Available [facility] - Manual Order Only [address], [place], [address], 06/22/2023 14:25:22 06/18/19 24 06/18/2023 LIVER FIBRO SIS, CMP (PANE L WFIB- 4 INDEX ) bilirubin, total 0.5 mg/dL <1.3 Not Available [facility] - Manual Order Only [address], [place], [address], 06/22/2023 14:25:22 06/18/19 24 06/18/2023 LIVER FIBRO SIS, CMP (PANE L WFIB- 4 INDEX ) platelet count 197 K/uL 140-40 0 Not Available [facility] - Manual Order Only [address], [place], [address], 06/22/2023 14:25:22 06/18/19 24 06/18/2023 LIVER FIBRO SIS, CMP (PANE L WFIB- 4 INDEX ) fib-4 index 2.40 calc <1.30 high Not Available [facility] - Manual Order Only [address], [place], [address], 06/22/2023 14:25:22 06/18/19 24 06/18/2023 LIVER FIBRO SIS, CMP (PANE L WFIB- 4 INDEX ) fib-4 interpretati on SEE COMMEN T Indiv idual s with NAFLD : FIB-4 index resul t 1.30- 2.67 is indet ermin ate for advan jose liver fibro sis (F3-F 4). Indiv idual s with Hepat itis B: FIB-4 index resul t 1.00- 2.65 is indet ermin ate for advan jose liver fibro sis (F3-F 4). Indiv idual s with Hepat itis C: FIB-4 index resul t 1.45- 3.25 is indet ermin ate for advan jose liver fibro sis (F3-F 4). The FIB-4 Index is a score calcu lated from patie nt age and three labor atory measu res (AST, ALT, and plate let count ) to asses s likel ihood of advan jose liver fibro sis (stag e F3 or F4) in indiv idual s with NAFLD (non- alcoh olic fatty liver disea se), Hepat itis B, or Hepat itis C. Patie nt heri cteri stics and clini miguel a featu res shoul d guide inter preta tion. The appli catio n of the FIB-4 index to evalu ate NAFLD in pedia tric age group s is limit ed. FIB-4 index range s for indiv idual s with NAFLD : Low <1.30 , Indet ermin ate 1.30- 2.67, High >2.67 ; FIB-4 index range s for indiv idual s with Hepat itis B: Low <1.00 , Indet ermin ate 1.00- 2.65, High >2.65 ; FIB-4 index range s for indiv idual s with Hepat itis C: Low <1.45 , Indet ermin ate 1.45- 3.25, High >3.25 . Refer ences : Singh DIALLO, Daren montelongo A, Benito y K, et al. Brent rison of nonin vasiv e marke rs of fibro sis in patie nts with nonal cohol ic fatty liver disea se. Clin [facility] Hepat ol. 2009; 7(10) :1104 -1112 . doi:1 0.101 6/j.c gh.20 11.03 .033. Epifanio BARNHART, Myron CH, et al. A pract ical clini miguel a appro ach to liver fibro sis. [facility] Med J. 2018; 59(12 ):628 -633. Doi:1 0.116 22/ edj.2 [id number] 5. For addit ional resou lindsey tellez e visit : [email or web address] uestD iagno [email or web address] .com/ NAFLD Not Available [facility] - Manual Order Only [address], [place], [address], 06/22/2023 14:25:22 06/18/19 24 06/18/2023 LIVER FIBRO SIS, CMP (PANE L WFIB- 4 INDEX ) BUN/creatini ne ratio NOT APPLIC ABLE calc 08-20 Not Available [facility] - Manual Order Only [address], [place], [address], 06/22/2023 14:25:22 06/18/19 24 06/18/2023 LIVER FIBRO SIS, CMP (PANE L WFIB- 4 INDEX ) eGFR 68 mL/mi n/1.7 3m_sq uared >59 The eGFR is based on the CKD-E PI 2020 equat ion. To calcu late the new eGFR from a previ ous Creat inine or Cysta tin C resul t, go to https ://mart w.shaheed kenton.o rg/pr ofess ional s/kdo qi/gf r%5Fc alcul ator. Not Available [facility] Manual Order Only [address], [place], [address], 06/22/2023 14:25:22 06/18/19 24 06/18/2023 INSUL IN insulin 3.4 uIU/m L <18.5 Refer ence Range <=18. 4. Risk: Optim al <=18. 4, Moder ate NA, High >18.4 . Adult cardi ovasc ular event risk categ ory cut point s (opti mal, moder ate, high) are based on Insul in Refer ence inter melody studi es perfo rmed at [facility] in 2021. Not Available [facility] - Manual Order Only [address], [place], [address], 06/22/2023 14:25:23 06/18/19 24 06/18/2023 MYELO PEROX IDASE myeloperoxid ase 289 pmol/ L <470 Based on a high risk sub-p opula tion (N=92 0) defin ed as ambul atory stabl e patie nts witho ut acute coron micah syndr ome who under went elect peter diagn ostic coron micah angio graph y (1) and a refer ence range study of appar ently healt hy donor s, we have defin ed the follo wing cut-o ffs for MPO: A cut-o ff of <470 pmol/ L defin es an 'appa rentl y healt hy' popul ation at optim al relat peter risk for a cardi ovasc ular event , 470-5 39 pmol/ L defin es a popul ation at moder ate relat peter risk for a cardi ovasc ular event (2-fo ld incre ased risk of MACE at 3 years ), and > = 540 pmol/ L defin es a popul ation with a high relat peter risk for a cardi ovasc ular event . (Refe rence : 1. Pradeep et al. Am J Cardi ol. 2013; 111:4 65-47 0 and perso nal commu nicat ion with Pradeep villagomez al). This test was marielle pelaez and its linnette tical perfo rmanc e heri cteri stics have been deter mined by [facility] [place] [facility] at [facility]. It has not been clear ed or appro sabino by the U.S. Food and Drug Admin istra tion. This assay has been valid ated pursu ant to the CLIA regul ation s and is used for clini miguel a purpo ses. Not Available [facility] - Manual Order Only [address], [place], [address], 06/22/2023 14:25:24 06/18/19 24 06/22/2023 LIV MOISEI LE summary SEE NOTE There were no histo rical eGFR value s found for this patie nt Not Available [facility] Order Only [address], [place], [address], 06/22/2023 14:25:24 06/18/19 24 06/22/2023 LIV MOISEI LE summary SEE NOTE There were no histo rical eGFR value s found for this patie nt Not Available [facility] - Manual Order Only [address], [place], [address], 06/22/2023 14:25:24 06/18/1909/27/6696 KIDNE Y PROFI LE stage 2 Not Available [facility] - Manual Order Only [address], [place], [address], 06/22/2023 14:25:24 06/18/1909/27/6696 KIDNE Y PROFI LE creatinine 0.81 mg/dL 0.60-0 .95 normal Not Available [facility] - Manual Order Only [address], [place], [address], 06/22/2023 14:25:24 06/18/1909/27/6696 KIDNE Y PROFI LE eGFR 73 mL/mi n/1.7 3m2 > or = 60 normal Not Available [facility] - Manual Order Only [address], [place], [address], 06/22/2023 14:25:24 06/18/1909/27/6696 KIDNE Y PROFI LE creatinine, random urine 18 mg/dL 20-275 low Not Available [facility] - Manual Order Only [address], [place], [address], 06/22/2023 14:25:24 06/18/1909/27/6696 KIDNE Y PROFI LE albumin, urine 1.7 mg/dL normal Refer ence Range Not estab lishe d Not Available [facility] - Manual Order Only [address], [place], [address], 06/22/2023 14:25:24 06/18/19 24 09/27/6696 KIDNE Y PROFI LE albumin/crea tinine ratio, random urine 94 mg/g_ creat <30 high The ADA defin es abnor malit ies in album in excre tion as follo ws: Album inuri a Categ ory Resul t (mg/g creat inine ) Vannessa l to Mildl y incre ased <30 Moder ately incre ased 30-29 9 Sever bianca incre ased > OR = 300 The ADA recom mends that at least two of three speci mens colle cted withi n a 3-6 month perio d be abnor mal befor e consi sagrario g a patie nt to be withi n a diagn ostic categ ory. Not Available [facility] - Manual Order Only [address], [place], [address], 06/22/2023 14:25:24 06/18/1909/27/6696 KIDNE Y PROFI LE screening frequency SEE NOTE Based on this patie nt's Serum Creat inine and Album in-Cr eatin ine Ratio , KDIGO and NKF guide lines recom mend follo w-up scree nkii with the Kidne y Profi le 1 time per year. Not Available [facility] - Manual Order Only [address], [place], [address], 06/22/2023 14:25:24 06/18/1909/27/6696 KIDNE Y PROFI LE recommended tests SEE NOTE KDIGO and the Natio nal Kidne y Found ation provi de the follo wing evide nce-b ased sugge stion s for testi ng for compl icati ons and comor bidit ies: Lipid Panel Annua lly Hemog lobin A1c As Neede d to Monit or Glyce diallo Contr ol Patie nt Resou rces Intro ducti on to Chron ic Kidne y Disea se (http s://w Handshake.Bigcommerce. org/p hi/fo rm?ve rsion =) What is eGFR and uACR? A pamph let descr ibing how these two tests can help you manag e your Chron ic Kidne y Disea se (http s://w Handshake.Bigcommerce. org/a toz/c onten t/und ersta nding -your - lab-v alues ) Nutri tion and Kidne y Disea se: Learn about a kidne y- frien dly diet, so you can stay healt hy with kidne y disea se wheth er you are at home or dinin g out (http s://w ww.Chelsio Communicationsey. org/n utrit ion/K carol -Dise ase- Stage s-1-4 ) Exerc ise and Chron ic Kidne y Disea se: Exerc ise is impor tant for every one, espec ially for peopl e with kidne y disea se (http s://w ww.Chelsio Communicationsey. org/a toz/c onten t/ exerc isewy ska) [facility] Patie nt Educa tion Podca st: Hear from real patie nts about how they don't let kidne y disea se stop them from livin g vannessa l lives (http s://u nckid nee nter. org/k carol healt hlibr micah/p atien t -educ ation -podc asts/ ) Melissa stratton from the Kidne y Fund (http s://w Handshake. dneyf und.o rg/dora king/blossom ariasrs /) NKF Kidne y Disea se Commu nity: Gene kaminski ge board for peopl e livin g with CKD (http s://h bonita unloc ked.c om/nk f- ckd) NKF PEERs : Amanda ct with mento rs who are livin g with CKD (http s://w ww.Noquo dney. org/p atien ts/pe ers) Clini corwin Resou rces Kidne y Profi le Test Summa ry (http s://t estdi recto ry.qu estdi agnos Runic Gamess. com/t est/t est- guide s/TS_ Kidne yProf ile/k idkenton -prof ile) Chron ic Kidne y Disea se Test Guide (http s://t estdi recto ry.qu estdi agnos tics. com/t est/t est- guide s/TG_ CKD/l abora tory- testi ng-fo r-chr onic- kidne y- disea se-di agnos is-an d-man ageme nt) Natio nal Kidne y Found ation Pract ice Tools (http s://w ww. dney. org/p ainsley anderson/to ols) CKD Infor israel Crowell ge: A colle ction of evide nce-b ased resou rces to help PCPs diagn ose CKD earli er and devel op treat ment homar cols to slow progr essio n (http s://w ww. dney. org/C KDinf orm) Natio nal Kidne y Found ation CME Webin ars (http s://e ducat ion.Ringleadr.comney .org/ cours e-cat alog- list) KDIGO Guide lines for Chron ic Kidne y Disea se Manag ement (http s://VersionEyeo. org/g fabrizio fernandez/ ckd-e valua tion- and- manag ement /) Not Available [facility] - Manual Order Only [address], [place], [address], 06/22/2023 14:25:24 06/18/19 24 09/27/6696 KIDNE Y PROFI LE stage 2 Not Available [facility] - Manual Order Only [address], [place], [address], 06/22/2023 14:25:24 06/18/19 24 09/27/6696 KIDNE Y PROFI LE creatinine 0.81 mg/dL 0.60-0 .95 normal Not Available [facility] - Manual Order Only [address], [place], [address], 06/22/2023 14:25:24 06/18/19 24 09/27/6696 KIDNE Y PROFI LE eGFR 73 mL/mi n/1.7 3m2 > or = 60 normal Not Available [facility] - Manual Order Only [address], [place], [address], 06/22/2023 14:25:24 06/18/1909/27/6696 KIDNE Y PROFI LE creatinine, random urine 18 mg/dL 20-275 low Not Available [facility] Manual Order Only [address], [place], [address], 06/22/2023 14:25:24 06/18/19 24 09/27/6696 KIDNE Y PROFI LE albumin, urine 1.7 mg/dL normal Refer ence Range Not estab lishe d Not Available [facility] [address], [place], [address], 06/22/2023 14:25:24 06/18/1909/27/6696 KIDNE Y PROFI LE albumin/crea tinine ratio, random urine 94 mg/g_ creat <30 high The ADA defin es abnor malit ies in album in excre tion as follo ws: Album inuri a Categ ory Resul t (mg/g creat inine ) Vannessa l to Mildl y incre ased <30 Moder ately incre ased 30-29 9 Sever bianca incre ased > OR = 300 The ADA recom mends that at least two of three speci mens colle cted withi n a 3-6 month perio d be abnor mal befor e consi sagrario g a patie nt to be withi n a diagn ostic categ ory. Not Available [facility] - Manual Order Only [address], [place], [address], 06/22/2023 14:25:24 06/18/1909/27/6696 KIDNE Y PROFI LE screening frequency SEE NOTE Based on this patie nt's Serum Creat inine and Album in-Cr eatin ine Ratio , KDIGO and NKF guide lines recom mend follo w-up scree niki with the Kidne y Profi le 1 time per year. Not Available [facility] - Manual Order Only [address], [place], [address], 06/22/2023 14:25:24 06/18/1909/27/6696 KIDNE Y PROFI LE recommended tests SEE NOTE KDIGO and the Natio nal Kidne y Found ation provi de the follo wing evide nce-b ased sugge stion s for testi ng for compl icati ons and comor bidit ies: Lipid Panel Annua lly Hemog lobin A1c As Neede d to Monit or Glyce diallo Contr ol Patie nt Resou rces Intro ducti on to Chron ic Kidne y Disea se (http s://w Handshake.Bigcommerce. org/p hi/fo rm?ve rsion =heal th) What is eGFR and uACR? A pamph let descr ibing how these two tests can help you manag e your Chron ic Kidne y Disea se (http s://w Gonway. org/a toz/c onten t/und ersta nding -your - lab-v alues ) Nutri tion and Kidne y Disea se: Learn about a kidne y- frien dly diet, so you can stay healt hy with kidne y disea se wheth er you are at home or dinin g out (http s://w Gonway. org/n utrit ion/K carol -Dise ase- Stage s-1-4 ) Exerc ise and Chron ic Kidne y Disea se: Exerc ise is impor tant for every one, espec ially for peopl e with kidne y disea se (http s://w Gonway. org/a toz/c onten t/ exerc isewy ska) [facility] Patie nt Educa tion Podca st: Hear from real patie nts about how they don't let kidne y disea se stop them from livcole g vannessa l lives (http s://u aid neyce nter. org/k carol healt hlibr micah/p atien t -educ ation -podc asts/ ) Melissa stratton from the [employer] y Fund (http s://w Handshake.Noquo dneyf und.o rg/dora king/blossom inars /) NKF Kidne y Disea se Commu nity: Galen neri board for peopl e livin g with CKD (http s://h eah unloc ked.c om/nk f- ckd) NKF PEERs : Conne ct with mento rs who are livin g with CKD (http s://w ww.Chelsio Communicationsey. org/p atien ts/pe ers) Clini corwin Resou rces Kidne y Profi le Test Summa ry (http s://t estdi recto ry.qu estdi agnos tics. com/t est/t est- guide s/TS_ Kidne yProf ile/k carol -prof ile) Chron ic Kidne y Disea se Test Guide (http s://t estdi recto ry.qu estdi agnos tics. com/t est/t est- guide s/TG_ CKD/l abora tory- testi ng-fo r-chr onic- kidne y- disea se-di agnos is-an d-man ageme nt) Natio nal Kidne y Found ation Pract ice Tools (http s://w ww.Bigcommerce. org/p rofes siona ls/to ols) CKD Infor israel neri: A colle ction of evide nce-b ased resou rces to help PCPs diagn ose CKD earli er and devel op treat ment homar cols to slow progr essio n (http s://w ww.Bigcommerce. org/C KDinf orm) Natio nal Kidne y Found ation CME Webin ars (http s://e ducat ion.k idney .org/ cours e-cat alog- list) KDIGO Guide lines for Chron ic Kidne y Disea se Manag ement (http s://k digo. org/g uinilo jim/ ckd-e valua tion- and- manag ement /) Not Available [facility] - Manual Order Only [address], [place], [address], 06/22/2023 14:25:24 01/05/2001/04/2023 , breas t, unila teral No observ ation record ed. Not Available 2022 16:13:02 01/05/20 23 01/04/2023 MAMMO , diagn ostic , digit al, bilat eral No observ ation record ed. Not Available 2022 16:13:02 01/19/20 23 01/18/2023 XR, chest , 2 view No observ ation record ed. [email or web address] [facility] (Radiology) [address] [place], [address], 01/25/2023 12:14:47 06/15/19 24 06/15/2023 elect rocar diogr am No observ ation record ed. Main Office [address] [address], [place], [address], 07/05/2023 12:14:30 06/15/19 24 06/15/2023 audio gram No observ ation record ed. Main Office [address] [facility] [address], [place], [address], 07/05/2023 12:14:30 06/15/19 24 thao metry testi ng* No observ ation record ed. Not Available 2023 12:14:28 06/15/19 24 elect rocar diogr am No observ ation record ed. Not Available 2023 12:14:28 08/19/19 24 08/19/2023 CT, head + brain , w/ contr ast No observ ation record ed. [email or web address] [facility] Radiology [address] [facility], [place], [address], 08/25/2023 14:44:12 Result Notes None recorded. Problems Name Problem SNOMED Code Status Onset Date Resolution Date Notes Provider Name and Address Organization Details Recorded Time Epigastr ic pain 04160266 Completed 201101/04/2012 Not Available [facility] 08:41:22 Common cold 01062498 Completed 200712/16/2009 Not Available [facility] 6 08:41:24 Acute sinusiti s 79205661 Completed 201101/04/2012 Not Available [facility] 6 08:41:28 Atrial fibrilla tion 34725416 Active 2010 DO haritha Stauffer [place] - Beck, Amy. 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 Not Available [facility] 1 19:01:11 Chronic rhinitis 38598812 Active 2011 Not Available [facility] 1 19:01:11 Onychomy cosis due to dermatop hyte 153392292 Completed 200912/16/2009 Not Available [facility] 6 08:42:51 Fibrocys tic disease of breast 92048452 Active 2007 Not Available [facility] 1 19:01:11 Edema 151468908 Completed 201202/24/2013 Not Available [facility] 6 08:42:07 Fever 897991067 Completed 200811/05/2011 Not Available [facility] 6 08:42:09 Gastriti s 9551824 Completed 201202/24/2013 Not Available [facility] 6 08:42:12 Gastrodu odenitis 995267886 Completed 201202/24/2013 Not Available [facility] 6 08:42:12 Benign essentia l hyperten sarath 9226615 Active 2007 Not Available [facility] 1 19:01:11 Insomnia 528960845 Completed 201101/04/2012 DO haritha Kinney [place] - Beck, Amy. 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 3 10:21:30 Menopaus al symptom 86681663 Completed 201101/04/2012 Not Available [facility] 6 08:43:33 Hearing loss 75887259 Active 2011 has hearing aids. DO haritha Kinney [place] - Beck, Amy. 4 13:16:10 Onychomy cosis due to dermatop hyte 472935798 Completed 201202/24/2013 Not Available [facility] 7 02:43:47 Gastrodu odenitis 691075063 Completed 200712/16/2009 Not Available [facility] 7 02:46:05 Cardiac pacemake r in situ 156524118 Active 2004 battery change 2009 DO haritha Kinney [place] - Beck, Amy. 3 10:23:18 Spinal stenosis 83699165 Active 2017 [address] KAYLA mg Amy. 2 16:48:57 Insomnia 378103711 Active 2011 gynecolo gist prescrib es hydroxyz ine for this. DO haritha Kinney [place] - Beck, Amy. 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 DO haritha Kinney [place] - Beck, Amy. 3 11:46:59 Prediabe diana 104437919 Active 2022 DO haritha [place] - Beck, Amy. 3 12:07:38 Proteinu swetha 83890667 Active [address] landon august 04: could decrease one of her antinoda ls to start yasmany-i, but she tends to run high on her HR so they may need to adjust her pacemake r. will discuss pt w/at next OV. DO haritha [place] - Beck, Amy. 4 13:03:26 Memory impairme nt 502213440 Active 2023 PM is not MRI compatib le. CT brain was unremark able. consider neurocog nitive testing. DO haritha [place]ney [place] - Beck, Amy. 4 18:01:11 Hypervit aminosis D 92011282 Active 2023 DO haritha [place]ney [place] - Beck, Amy. 4 12:45:11 Seronega tive rheumato id arthriti s 644289703 Active 2023 based on erosive arthriti s on xray and positive CCP. fb dr geller; started plaqueni l sep 2023. DO haritha Kinney [place] - Beck, Amy. 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 Procedures Surgical History Date Name Laterality Status Provider Name and Address Organization Details Recorded Time 4 Advanced Care Planning completed DO KAYLA Kinney Amy. 07/05/2023 11:31:37 4 [facility] completed Amy. Estela 07/01/2023 13:09:51 3 [facility] completed Amy. Grady 023 11:00:37 2 [facility] completed Amy. Grady 022 10:58:54 0 [facility] completed Amy. Neeru 020 09:38:46 9 Influenza Consent completed Amy. Grady 12/05/2018 12:15:14 9 Most Recent Mammogram completed Amy. Grady 05/09/2018 16:05:57 9 Scr mammo bi incl cad completed Amy. Grady 05/09/2018 16:05:40 8 [facility] completed Amy. Grady 018 12:29:49 7 [facility] completed Amy. Grady 017 10:38:32 5 Dxa bone density natali vrt fx completed Amy. Neeru 02/06/2020 10:04:04 Imaging Results Imaging Date Name Status LastModified by Organization Details LastModified Time 01/04/2023 US, breast, unilateral completed Information not available 01/06/2023 16:13:02 01/04/2023 MAMMO, diagnostic, digital, bilateral completed Information not available 01/06/2023 16:13:02 01/18/2023 XR, chest, 2 view completed [facility] (Radiology) [address] [place], [address], 01/25/2023 12:14:47 06/15/2023 electrocardiogram completed [facility] [address] [facility] [address], [place], [address], 07/05/2023 12:14:30 06/15/2023 audiogram completed Main Office [address] [facility] [address], [place], [address], 07/05/2023 12:14:30 06/15/2023 spirometry testing* completed Infor mation not available 07/05/2023 12:14:28 06/15/2023 electrocardiogram completed Informa tion not available 07/05/2023 12:14:28 08/19/2023 CT, head + brain, w/ contrast completed [address] Radiology [address], [place], [address], 08/25/2023 14:44:12 Procedure Notes None recorded. Medical Equipment None Reported. Allergies No known drug allergies Medications Name Sig Start Date Stop Date Status Note LastModified by Organization Details LastModified Time multivitami n tablet 09/02 completed Not Available Not Available Not Available prednisone 10 mg tablet Take 4 tablets every day by oral route. 01/10 completed Not Available Not Available Not Available atorvastati n 20 mg tablet TAKE 1 TABLET BY MOUTH EVERY DAY 2023 active Not Available Not Available Not Avai lable atorvastati n 10 mg tablet TAKE 1 TABLET BY MOUTH EVERY DAY 09/21 completed Not Available Not Available Not Available azithromyci n 250 mg tablet TAKE 2 TABLETS (500 MG) BY ORAL ROUTE ONCE DAILY FOR 1 DAY THEN 1 TABLET (250 MG) BY ORAL ROUTE ONCE DAILY FOR 4 DAYS 01/14 completed Not Available Not Available Not Available diltiazem CD 180 mg capsule,ext ended release 24 hr TAKE 1 CAPSULE BY MOUTH EVERY DAY 2023 active Not Available Not Available Not Avai lable metoprolol succinate ER 50 mg tablet,exte nded release 24 hr TAKE 1 TABLET BY MOUTH EVERY DAY active Not Available Not Available No t Available [place] Nasal Mist 0.65 % spray aerosol 04/27 completed Not Available Not Available Not Available fluorometho lone 0.25 % eye drops,suspe nsion Instill 2 drop(s) to affected eye(s) bid 05/10 completed Not Available Not Available Not Available meloxicam 15 mg tablet TAKE ONE TABLET BY MOUTH ONCE DAILY active Not Available Not Available No t Available hydroxyzine HCl 50 mg tablet TAKE 1 TABLET BY MOUTH EVERY DAY NEEDED 2023 active Not Available Not Available Not Avai lable sulfamethox azole 800 mg-trimetho prim 160 mg tablet TAKE 1 TABLET BY MOUTH EVERY 12 HOURS FOR 7 DAYS 11/05 completed Not Available Not Available Not Available aspirin 81 mg tablet,maryan yed release Refills: 05/31 completed Not Available Not Available Not Available triamcinolo ne acetonide 0.1 % topical cream 12/24 completed Not Available Not Available Not Available amoxicillin 500 mg tablet 2 PiII,PO,B ID,QTY:20 - Refills: 0 04/28 completed Not Available Not Available Not Available simvastatin 40 mg tablet 1 PiII,PO,Q D,QTY: 90 - Refills: 3 11/04 completed Not Available Not Available Not Available meloxicam 7.5 mg tablet TAKE 1 TABLET BY MOUTH EVERY DAY NEEDED 02/19 completed Not Available Not Available Not Available benzonatate 100 mg capsule TAKE 2 CAPSULES BY MOUTH 3 TIMES A DAY 01/14 completed Not Available Not Available Not Available cephalexin 500 mg capsule TAKE 1 CAPSULE BY MOUTH 3 TIMES A DAY FOR 2 DAYS 04/27 completed Not Available Not Available Not Available nystatin 100,000 unit/gram topical cream USE DIRECTED 4 TIMES A DAY 07/04 completed Not Available Not Available Not Available metronidazo le 0.75 % topical cream USE ON CLEAN FACE AT NIGHT 04/25 completed Not Available Not Available Not Available metoprolol tartrate 50 mg tablet 08/27 completed Not Available Not Available Not Available Calcium-600 600 mg (as calcium carbonate 1,500 mg) tablet 09/02 completed Not Available Not Available Not Available gentamicin 0.1 % topical cream active Not Available Not Available Not Available hydroxyzine HCl 25 mg tablet TAKE 1 TABLET BY MOUTH EVERYDAY AT BEDTIME 04/25 /2023 completed Not Available Not Available Not Available lisinopril 5 mg tablet 1 q.a.m. 05/31 completed Not Available Not Available Not Available gabapentin 100 mg capsule Take 1 capsule every day by oral route. 02/05 completed Not Available Not Available Not Available metoprolol succinate ER 25 mg tablet,exte nded release 24 hr TAKE 1 TABLET BY MOUTH EVERY DAY 07/04 completed Not Available Not Available Not Available Nasonex 50 mcg/actuati on Cameron as needed. 12/24 completed Not Available Not Available Not Available Dyazide 37.5 mg-25 mg capsule 1 Pill,PO,P RN,QTY:30 - Refills: 0 11/04 completed Not Available Not Available Not Available methylpredn isolone 4 mg tablets in a dose pack Take as directed 12/24 completed Not Available Not Available Not Available albuterol sulfate HFA 90 mcg/actuati on aerosol inhaler INHALE 2 PUFFS EVERY 6 TO 8 HOURS active Not Available Not Available No t Available Lotemax 0.5 % eye drops,suspe nsion 12/24 completed Not Available Not Available Not Available Premarin 0.625 mg/gram vaginal cream 1 applicato r full as directed 09/25 completed Not Available Not Available Not Available metoprolol tartrate 25 mg tablet TAKE 1 2 (ONE HALF) TABLET BY MOUTH ONCE DAILY 04/27 completed Not Available Not Available Not Available Vitamin D 2000 units per day 08/09 completed Not Available Not Available Not Available Natural Fish Oil Concentrate 2011 active Not Available Not Available Not Avai lable Glucosamine 1500 Complex 09/02 completed Not Available Not Available Not Available Vagifem 10 mcg vaginal tablet 12/24 completed Not Available Not Available Not Available Suprep Bowel Prep Kit 17.5 gram-3.13 gram-1.6 gram oral solution 05/24 completed Not Available Not Available Not Available Pradaxa 150 mg capsule TAKE 1 CAPSULE BY MOUTH TWICE A DAY active Not Available Not Available No t Available Xarelto 15 mg tablet 1 po bid 08/09 completed Not Available Not Available Not Available Xarelto 20 mg tablet Take 1 tablet(s) by mouth daily with the evening meal. 10/12 completed Not Available Not Available Not Available Ameena Brown [facility] spacer USE DIRECTED. 01/14 completed Not Available Not Available Not Available Fluad Quad 2019-8070(6 5yr up)(PF) 60 mcg (15 mcg x 4)/0.5mL IM syringe PHARMACIS T ADMINISTE RED IMMUNIZAT ION ADMINISTE RED AT TIME OF DISPENSIN G active Not Available Not Available No t Available Vitals Date Recorded Body height Body mass index (BMI) Body weight Body temperature Heart rate Oxygen saturation Oxygen saturation in Arterial blood by Pulse oximetry Respiratory rate Systolic blood pressure Diastolic blood pressure Provider Name and Address Organization Details Last Updated DateTime 3 158.75 cm 20 kg/m2 18879.7 5 g 98.2 [degF] 69 /min 95 % 95 % 12 /min 122 mm[Hg] 78 mm[Hg] Amy. Grady 3 11:50:38 Date Recorded Body height Body mass index (BMI) Body weight Provider Name and Address Organization Details Last Updated DateTime 06/15/2023 157.48 cm 21.2 kg/m2 12464.71 g Amy. Karina 06/15/2023 10:56:41 Date Recorded Body height Body mass index (BMI) Body weight Body temperature Heart rate Oxygen saturation Oxygen saturation in Arterial blood by Pulse oximetry Body height Body mass index (BMI) Body weight Body temperature Heart rate Oxygen saturation Oxygen saturation in Arterial blood by Pulse oximetry Systolic blood pressure Diastolic blood pressure Systolic blood pressure Diastolic blood pressure Provider Name and Address Organization Details Last Updated DateTime 4 157.48 cm 21.2 kg/m2 44775.7 1 g 98.4 [degF] 85 /min 96 % 96 % 157.48 cm 21.2 kg/m2 48586.7 1 g 98.4 [degF] 85 /min 96 % 96 % 118 mm[Hg] 78 mm[Hg] 118 mm[Hg] 78 mm[Hg] Amy. Grady 4 11:14:45 Date Recorded Body height Body mass index (BMI) Body weight Body temperature Heart rate Oxygen saturation Oxygen saturation in Arterial blood by Pulse oximetry Respiratory rate Systolic blood pressure Diastolic blood pressure Provider Name and Address Organization Details Last Updated DateTime 4 157.48 cm 21.4 kg/m2 16147.3 1 g 97.6 [degF] 86 /min 94 % 94 % 8 /min 122 mm[Hg] 62 mm[Hg] Amy. Grady 4 13:03:02 Social History Question Answer Notes LastModified by Organizat ion Details LastModified Time Tobacco Smoking Status Former Smoker quit 35-40 yr ago. DO haritha Kinney [place] - Beck, Amy. 06/23/2022 11:43:18 Do You Have An Advance Directive? Yes And Then Her Daughter Or Son Information not available 06/23/2022 What Is Your Level Of Alcohol Consumption? Occasional Seldom; Socially. Information not available 06/23/2022 Are You Blind Or Do You Have Difficulty Seeing? No Information not available 04/25/2021 Is Blood Transfusion Acceptable In An Emergency? Yes Information not available 04/25/2021 What Is Your Level Of Caffeine Consumption? None Information not available 04/25/2021 What Type Of Drilling Supervisor Do You Use? None Information not available 04/25/2021 In The 14 Days Before Symptom Onset, Have You Had Close Contact With A Laboratory-confi rmed COVID-19 While That Case Was Ill? No Information not available 04/25/2021 In The 14 Days Before Symptom Onset, Have You Had Close Contact With A Person Who Is Under Investigation For COVID-19 While That Person Was Ill? No Information not available 04/25/2021 Have You Been To An Area Known To Be High Risk For COVID-19? Yes Information not available 04/25/2021 Are You Currently Employed? No Information not available 04/25/2021 Are You Deaf Or Do You Have Serious Difficulty Hearing? No Information not available 04/25/2021 What Type Of Diet Are You Following? REGULAR Information not available 04/25/2021 Have You Processed Blood Or Body Fluids From An Ebola Virus Disease Patient Without Appropriate PPE? No Information not available 04/25/2021 Do You Reside In Or Have You Traveled To An Area Where Ebola Virus Transmission Is Active? No Information not available 04/25/2021 Do You Or Have You Ever Used E-cigarettes Or Vape? Never Used Electronic Cigarettes Information not available 02/06/2020 Have There Been Any Changes To Your Family Or Social Situation? No Information not available 04/25/2021 Have You Recently Or Are You Planning To Travel To An Area With Zika Virus? No Information not available 04/25/2021 What Was The Date Of Your Most Recent Tobacco Screening? 04/25/2021 Information not available 04/25/2021 What Is Your Relationship Status? Information not available 04/25/2021 Do You Use Your Seat Belt Or Car Seat Routinely? Yes Information not available 04/25/2021 Do You Or Have You Ever Used Smokeless Tobacco? Never Used Smokeless Tobacco Information not available 02/06/2020 How Much Tobacco Do You Smoke? No Information not available 02/06/2020 Do You Use Any Illicit Or Recreational Drugs? No Information not available 04/25/2021 Do You Use Sunscreen Routinely? Yes Information not available 04/25/2021 How Many Years Have You Smoked Tobacco? 12 Information not available 12/24/2017 Do You Or Have You Ever Used Any Other Forms Of Tobacco Or Nicotine? No Information not available 04/25/2021 Sex: Unknown Functional Status Question Answer Note LastModified by Organizat ion Details LastModified Time Do you have transportation difficulties? No Information not available 04/25/2021 Are you able to walk? YESASSIST Information not available 05/26/2021 Do you have difficulty doing errands alone? No Information not available 04/25/2021 Are you able to care for yourself? Yes Information n ot available 04/25/2021 Do you have difficulty dressing or bathing? Yes Information not available 05/26/2021 What is your exercise level? Moderate daily at the [facility] Information not available 04/25/2021 Mental Status Question Answer Note LastModified by Organization D etails LastModified Time Do you have difficulty concentrating, remembering or making decisions? No Information no t available 04/25/2021 Family History Nothing Reported Notes:Father (72) Lung cance r and CAD Mother (65) renal failure no siblings Medical History No medical history recorded. Gynecological History Statement/Question Response Most Recent Mammogram 05/09/2018 Obstetrics History GPAL:G 0 P 0 0 0 0 Immunizations Vaccine Type Date Status Note Provider Nam e and Address Organization Details Recorded Time Influenza, split virus, quadrivalent, preservative 0 completed KAYLA Vickers Amy. 04/25/2021 11:26:18 Pneumococcal conjugate PCV 13 1 completed KAYLA Vickers Amy. 04/25/2021 11:26:18 Influenza, adjuvanted, trivalent, PF 8 completed Not Available [facility] 03/18/2019 02:41:36 COVID-19, mRNA, LNP-S, PF, 100 mcg/0.5mL dose or 50 mcg/0.25mL dose 1 completed KAYLA King Amy. 04/25/2021 11:29:49 COVID-19, mRNA, LNP-S, PF, 100 mcg/0.5mL dose or 50 mcg/0.25mL dose 1 completed KAYLA King Amy. 04/25/2021 11:30:04 Influenza, split virus, quadrivalent, preservative 1 completed KAYLA Vickers Amy. 04/25/2021 11:46:51 Influenza, adjuvanted, trivalent, PF 9 completed Not Available [facility] 03/18/2019 02:41:36 Influenza, split virus, trivalent, preservative 9 completed KAYLA Vickers Amy. 04/25/2021 11:26:18 tetanus toxoid, adsorbed 8 completed KAYLA Vickers Amy. 04/25/2021 11:26:18 Pneumococcal conjugate PCV 13 8 completed KAYLA Vickers Amy. 04/25/2021 11:26:18 zoster live 8 completed KAYLA Vickers Amy. 04/25/2021 11:26:18 Influenza, split virus, trivalent, preservative 1 completed KAYLA Vickers Amy. 04/25/2021 11:26:18 Influenza, split virus, trivalent, preservative 3 completed KAYLA Vickers Amy. 04/25/2021 11:26:18 Influenza, high-dose, trivalent, PF 4 completed KAYLA Vickers Amy. 04/25/2021 11:26:18 pneumococcal polysaccharide PPV23 5 completed KAYLA Vickers Amy. 04/25/2021 11:26:18 Influenza, high-dose, trivalent, PF 5 completed KAYLA Vickers Amy. 04/25/2021 11:26:18 Past Encounters Encounter ID Performer Location Encounter Start Date Encounter Closed Date Diagnosis/Indication Diagnosis SNOMED-CT Code Diagnosis ICD10 Code [id number] [address] Office [address] [place] [address] [id number] 01/20/2011 00:00:00 [id number] [place] [address] [id number] 5 01/11/2012 00:00:00 [id number] [place] [address] [id number] 5 06/10/2012 00:00:00 [id number] [place] [address] [id number] 5 06/14/2012 00:00:00 [id number] [place] [address] [id number] 07/11/2012 00:00:00 [id number] [place] [address] [id number] 5 11/07/2012 00:00:00 [id number] [place] [address] [id number] 5 12/09/2012 00:00:00 [id number] [place] [address] [id number] 5 06/27/2015 00:00:00 [id number] Tomy Land Main Office [address] [place] [address] [id number] 5 01/31/2016 13:11:53 01/31/2016 13:49:46 Fibrocystic disease of breast 98140892 N60.19 Spinal omero nosis of lumbar region 17138827 M48.06 [id number] Tomy Emery Main Office [address] [place] [address] [id number] 5 09/03/2016 10:37:52 09/03/2016 13:08:52 [id number] Hardy Morgan Main Office [address] [place], [place] [id number] 5 12/01/2017 10:13:03 12/27/2017 14:48:07 Adult health examination 994483525 Z00.00 Influenza vaccine needed 0941158130 106 Z23 [id number] Diamond Urias Main Office [address] [place] [address] [id number] 5 12/05/2018 12:14:21 12/05/2018 12:16:14 Influenza vaccine needed 6107862956 106 Z23 [id number] Hardy Morgan Main Office [address] [place] [address] [id number] 5 02/06/2020 09:35:59 04/19/2020 10:58:02 Adult health examination 683833204 Z00.00 [id number] Hardy Morgan Main Office [address] [place] [address] [id number] 5 04/25/2021 10:55:27 05/27/2021 11:19:41 Adult health examination 880971829 Z00.00 Under immunized 89394811 8 Z28.3 Advance care planning 71 2556548 Z71.89 Spinal stenosis 00072006 M48.00 [id number] Luisa Storm DO Main Office [address] [place], [place] [id number] 5 04/27/2022 11:16:39 04/27/2022 12:39:38 Sinus node dysfunction 75623025 I49.8 Atrial fibrillation 4943 6004 I48.91 Benign ess ential hypertension 6463736 I10 Mixed hyperlipidemia 267 148496 E78.2 Patient ne w to provider 7388741342 18172 Z76.89 Hypoxia 691554249 R09.02 Insomnia 179186238 G47.0 0 Cardiac pa cemaker in situ 740375690 Z95.0 Dry skin 21834337 L85.3 [id number] Diamond Adonay Main Office [address] [place] [address] 5 06/10/2022 09:39:12 06/12/2022 10:52:58 Adult health examination 956468135 Z00.00 [id number] Luisa Storm DO Main Office [address] [place] [address] 5 06/23/2022 11:36:12 06/23/2022 13:35:37 Adult health examination 681444067 Z00.00 Benign ess ential hypertension 8338440 I10 Decrease in height 19190 005 R29.890 Mixed hyperlipidemia 267 981022 E78.2 Prediabetes 547820069 R7 3.03 Acute infe ction of pinna of right ear 3564300195 922157 H60.391 [id number] Luisa Storm DO Main Office [address] [place] [address] 5 11/05/2022 13:57:47 11/05/2022 14:35:06 Fever 820122186 R50.9 [id number] Luisa Storm DO Main Office [address] [place] [address] 5 11/10/2022 09:52:35 11/10/2022 12:21:51 Cough 28678414 R05.9 Fatigue 24061045 R53.83 Diarrhea 00936033 R19.7 Tachycardia 5551504 R00. 0 [id number] Luisa Storm DO Main Office [address] [place] [address] 5 01/14/2023 11:45:45 01/14/2023 12:54:58 Breast lump 28884951 N63.0 Mixed hyperlipidemia 267 599424 E78.2 Benign ess ential hypertension 7635128 I10 Pneumonia 782161563 J18. 9 Cardiac pa cemaker in situ 871681455 Z95.0 [id number] Diamond Urias Main Office [address] [place], [place] [id number] 5 06/15/2023 10:47:37 06/15/2023 11:55:24 Adult health examination 423960161 Z00.00 [id number] Luisa Storm DO Main Office [address] [place], [place] [phone] 5 07/05/2023 11:12:29 07/05/2023 14:06:39 Adult health examination 659378335 Z00.00 [id number] Luisa Storm DO Main Office [address] [place] [address] 5 07/05/2023 11:14:13 07/05/2023 14:07:21 Adult health examination 456959542 Z00.01 Prediabetes 342524578 R7 3.03 History of malignant neoplasm of skin 368094396 Z85.828 Atrial fibrillation 4943 6004 I48.91 Mixed hyperlipidemia 267 529161 E78.2 Benign ess ential hypertension 4205822 I10 Advance care planning 71 5316138 Z71.89 Insomnia 300439730 G47.0 0 Postmenopausal state 764 42698 Z78.0 Screening for malignant neoplasm of breast 236683616 Z12.39 Hearing loss 01329156 H9 1.93 Memory impairment 461763 006 R41.1 Bilateral arthritis of hands 4155878510 80532 M13.842 Proteinuria 39019904 R80 .9 Liver func tion tests outside reference range 375544985 R94.5 Hypervitaminosis D 83257 000 E67.3 [id number] Luisa Storm DO Main Office [address] [place] [address] [id number] 5 08/10/2023 12:57:09 08/18/2023 14:33:46 History of malignant neoplasm of skin 261533167 Z85.828 Atrial fibrillation 4943 6004 I48.91 Benign ess ential hypertension 3110486 I10 Insomnia 525050517 G47.0 0 Postmenopausal state 764 29735 Z78.0 Screening for malignant neoplasm of breast 899133384 Z12.39 Hearing loss 19375925 H9 1.93 Memory impairment 350551 006 R41.1 Bilateral arthritis of hands 8675456100 58510 M13.842 Proteinuria 98042641 R80 .9 Liver func tion tests outside reference range 988285275 R94.5 Hypervitaminosis D 73624 000 E67.3 Health Concerns Section Related Observation LastModified by Organization Detai ls LastModified Time None Recorded Concern Status LastModified by Organization Details LastModified Time None Recorded Advance Directives Directive Y: and then her daug hter or son Payers Encounter Date Sequence Insurance Name Policy Number Policy Barkley Covered Member ID Barkley Member ID Guarantor Name 01/14/2023 1 MEDICARE [place] Francine Boston Bridick [id number] Francine Boston Bridick 01/14/2023 2 [facility] Francine Boston Bridick [id number] Francine Keyesick 06/15/2023 1 MEDIC[place] Francine Boston Bridick [id number] Francine Boston Bridick 06/15/2023 2 [facility] Francine Boston Bridick [id number] Francine Boston Bridick 07/05/2023 1 MEDICARE [place] Francine Keyesick [id number] Franicne Boston Bridick 07/05/2023 2 [facility] Francine Boston Bridick [id number] Francine Boston Bridick 07/05/2023 1 MEDIC[place] Francine Boston Bridick [id number] Francine Boston Bridick 07/05/2023 2 [facility] Francine Boston Bridick [id number] Francine Boston Bridick 08/10/2023 1 MEDIC[place] Francine Boston Bridick [id number] Francine Boston Bridick 08/10/2023 2 [facility] Francine Boston Bridick [id number] Francine Erwin Notes Date Note Type Note Provider Name and Address Organization Details Recorded Time 01/14/2023 text/html Hypertension F/UReported bypatient.Medicatio ns:taking medications as directed; no side effects from medication; does not check bp at home. Associated Symptoms:no dizziness; no lightheadedness; no chest pain; no shortness of breath; no palpitations; no edema; no calf pain with exertion; no headache HPI: here for routine fup. she had repeat Right Mammogram and ultrasound with [facility] and mass that was seen on previous wasnt' seen on current. sees pm clinic every 3 weeks. sees forming machine adjuster once a year. DO haritha Kinney [place] - Beck, Amy. 01/14/2023 12:51:06 06/15/2023 text/html Patient presents today for the [facility] labs and procedures Diamond Urias KAYLA mg Amy. 06/15/2023 11:55:05 07/05/2023 text/html Patient is here for the [facility] Wellness Program. During this visit we will review and discuss their Health Risk Assessment and review the various tests and procedures performed as part of the [facility] Annual Wellness Program. The patient has no current acute medical complaints, nor any recent hospitalizations. Discussion Points for Review during Visit: -Review current medical conditions and specialists' consultations in detail. -Labs and testing review in great detail. -Review risks associated w/pain, nutrition, hydration, sleep, stress, activity and sexual health. -Review risks of alcohol, caffeine, and tobacco. -Preventative services and offer available/appropria te services. -Review personal, home and driving safety. DO haritha Kinney [place] - Beck, Amy. 07/05/2023 13:59:07 07/05/2023 text/html Medicare Annual Wellness VisitReported bypatient.Activitie s of Daily Living:able to bathe with limited or no assistance; able to contol urination and bowels; able to dress with limited or no assistance; able to feed self with limited or no assistance; able to get out of chair or bed with limited or no assistance; able to groom with limited or no assistance; able to toilet with limited or no assistance Instrumental Activities of Daily Living:able to do house work with limited or no assistance; able to grocery shop with limited or no assistance; able to manage medications with limited or no assistance; able to prepare meals with limited or no assistance; able to use the phone with limited or no assistance;unable to manage money without assistance Falls Risk Assessment:no frequent falls while walking; no fall since last visit HPI: here for AWV How do you feel your health is? good Who is on your care team? see chart How do you feel your memory is? not that good. last visit with forming machine adjuster was almost a year ago. sends over information on PM every 3mo. uses hydroxyzine every night for sleep. no side effects. had mammogram sep at [facility] that was positive on the R side. u/s R breast in oct 2022 that showed a mass and recommended a biopsy. she had repeat R diagnostic mammogram at [facility] in dec 2022 and was nl. saw a surgeon and recommended no biopsy. does not have a hat lining blocker. has noted a difference in her memory since last year. she has been taking prevagen. she does not get lost. HCM: POA--.Pneumo salma--april 2014Prevnar-13: nov 2020Influenza--rece ived.Covid--receive d. will request records.Tdap--recom mended.Shingrix--childress s received one. recommended to go back for next one.Hepatitis B--n/aColon Cancer--nov 2016 and no polyps.Lung cancer screening (age 50 to 80 years, at least a 20 pack-year smoking history and current smokers or having quit within the past 15 years)--n/aGyn--marry ry other year.Mammogram-- 3 abnl at [facility] and subsequent mammogram at [facility]. she will repeat sep 2023.ASA--n/aDEXA-- ordered.ca/vit D--n/aHep C--nl DO haritha Kinney [place] - Beck, Amy. 07/05/2023 13:59:24 08/10/2023 text/html HPI: here for cornel SALGADO. she did bloodwork. she saw ENT and is now wearing hearing aids. she has had them in for a week. she has a followup visit. she is happy with them. she has her mammogram scheduled. she has an appt with her hat lining blocker scheduled. she did say her PM is not MRI compatible. did not get in to see neurologist or neuropsychologist. she did stop the vit d. she will make an appt with the portable track line marker. DO haritha Kinney [place] - Beck, Amy. 08/10/2023 13:39:27 OBGyn Episode No OBEpisode recorded.
--- OUTSIDE RECORDS SUMMARY | 2024-03-01 05:49 | XMS_ITS | Clinical Summary ---
Author Organization [facility] Address [address] [place] [address] Care Team Providers Care Implementation Lead Name Role Phone Angie Riddle MD Unavailable [phone] Luisa Mitchell DO Primary Care Provider [phone] Allergies No known active allergies Medications omega-3 fatty acids-vitamin E (FISH OIL) 1,000 mg capsule take 1 by Oral route 3 times every day 0 0 4 Active Additional Information Patient taking differently: 1 mg oral 2 times daily, Reported on 11/12/2023 VIT C/E/ZN/COPPR/MARCELLE TEIN/ZEAXAN (PRESERVISION AREDS 2 ORAL) Take by mouth Take 2 capsules daily Active atorvastatin (LIPITOR) 20 mg tablet Take 1 tablet (20 mg total) by mouth daily Active dilTIAZem CD 180 mg 24 hr capsule Take by mouth daily 4 Active metoprolol XL (TOPROL-XL) 50 mg extended release tablet TAKE 1 TABLET BY MOUTH EVERY DAY 90 tablet 2 4 Active Additional Information Patient not taking.Reported on 11/12/2023 meloxicam (MOBIC) 7.5 mg tablet Take 1 tablet (7.5 mg total) by mouth daily Active CALCIUM CITRATE-VITAMIN D3 ORAL Take 1 tablet by mouth 2 (two) times a day VITAMIN D3 60MCG + CALCIUM 1200MG Active dabigatran (Pradaxa) 150 mg capsule Take 1 capsule (150 mg total) by mouth 2 (two) times a day 180 capsule 3 4 Active Active Problems Problem Noted Date Diagnosed Date SSS (sick sinus syndrome) (CMS/HCC) 11/08/2023 Paroxysmal atrial fibrillation (CMS/HCC) 017 Overview (09/07/2016): On chronic AC. Assessment & Plan (06/09/2019 10:07 AM CDT): Asymptomatic Still having considerable amount occasional ectopy on interrogation reports Average heart rates overall although adequate and rate controlled She is completely asymptomatic, only noting occasional palpitations do not bother her Tolerating Pradaxa well Will fax routine blood work from PCP, but noting no signs or symptoms of bleeding Pacemaker 08/26/2016 Overview (08/26/2016): 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 Chronic A lead is from 09-13-03. Lia dao-Marquis Card. Assessment & Plan (06/09/2019 10:06 AM CDT): Regular pacemaker checks Last 1 done 2 days ago Normal functioning dual-chamber pacemaker 4.5 years to SARMAD Continue routine checks Breast mass, left 08/19/2016 Encounters Date Type Department Care Team Description 01/14/2024 Telephone [facility] Medical [facility] Cardiology [address] [address] Yoni Matamoros MD Med Management 01/03/2024 Telephone [facility] Cardiology [address] [place] [address] Yoni Matamoros MD 12/06/2023 1:00 PM CDT Ancillary Procedure [facility] [address], [place] [address] Cardiac pacemaker in situ (Primary Dx); SSS (sick sinus syndrome) (CMS/HCC) (HCC) from Last 3 Months Surgical History Surgery Date Site/Laterality Comments CARDIAC PACEMAKER PLACEMENT 03/01/2010 - 02/28/2011 Cardiac pacemaker CARDIAC PACEMAKER PLACEMENT Cardiac pacemaker INSERT / REPLACE / REMOVE PACEMAKER Medical History Medical History Date Comments Sick sinus syndrome (CMS/HCC) ([facility]) SSS; Comments: [facility] 07/20/2013 - Paroxysmal atrial fibrillati on (CMS/HCC) ([facility]) PAF - Paroxysmal atrial fibrillation; Comments: [facility] 07/20/2013 - Hypertension Hypertension; Co mments: [facility] 07/20/2013 - Hyperlipidemia Hyperlipidemia; Comments: [facility] 07/20/2013 - Pacemaker 08/26/2016 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 Chronic A lead is from 09-13-03. Lianannette dao-Marquis Card. 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 Gender Identity Not on file Sexual Orientation Not on file Obstetrics History Para Term AB IAB SAB Ectopic Multiple Livin g Live Births 2 2 Last Filed Vital Signs Vital Sign Reading [...] Mass Index 20.11 11/15/2023 11:55 AM CDT Plan of Treatment Health Maintenance Due Date Last Done Comments Depression Screening 1942 Fall Risk Assessment 1942 DTaP/Tdap/Td Vaccine (1 - Tdap) 1953 Hepatitis B Screening 02/22/1960 Well Visit 65+ 2007 Zoster Vaccine (2 of 3) 05/12/2007 03/17/2007 Osteoporosis Screening-Bone Density Scan 12/20/2016 12/20/2014 Influenza Vaccine (#1) 2023 , 12/06/2019, 12/05/2018, Additional history exists Pneumococcal vaccine 65+ Completed 021, 05/28/2014, 03/17/2007 Medical Devices Implanted Type Area Comic Book Artist Device Identifier Shelf Expiration Date Model / Serial / Lot Medtronic Inc Somis S Mri Surescan 50.8x46.6mm 2 Chamber 7.4mm Pacemaker 22.5gm [id number] - [id number] - [id number] Implanted:Qty: 1 on 11/15/2023 by Arnold Stout III, MD at [facility] Pacemaker Medtronic Inc 01/26/2025 [id number] / [id number] / Explanted Type Area Comic Book Artist Device Identifier Shelf Expiration Date Model / Serial / Lot Pacemaker-2010 Implanted:10/2010 by Skinny Fitzgerald MD (Quantity not on file) Explanted:Qty: 1 on 11/15/2023 by Arnold Stout III, MD at [facility] Pacemaker Left: Chest Medtronic sick sinus syndrome ADAPTA / [id number] / Description: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 Chronic A lead is from 09-13-03. Lehman. [facility] She is on Pradaxa for AC. Procedures Procedure Name Priority Date/Time Associated Diagnosis Comments DEVICE CHECK - IN OFFICE Routine 12/06/2023 12:41 PM CDT SSS (sick sinus syndrome) (CMS/HCC) (HCC) from Last 3 Months Results * DEVICE CHECK - IN OFFICE [...] to SARMAD Episodes last 90 days/Comments: AF Ericson 34 %, there were 28 episodes of [...] 3) Programming appropriate for device measurements Jaycob Mar, RN Arnold Stout III, MD CV CARDIAC SERVICES PROCEDURES Final Result from Last 3 Months Insurance MEDICARE [employer] MEDICARE [employer] Care Teams Implementation Lead Relationship Specialty Start Date End Date Luisa Mitchell DO [address] [place] [address] PCP - General Internal Medicine 08/11/22 Angie Riddle MD [address] [place], [place] [id number] Gynecology 08/19/16
--- OUTSIDE RECORDS SUMMARY | 2024-03-01 05:49 | XMS_ITS | Encounter Summary ---
Author Organization [facility] Healthcare Address [address] [place] [address] Care Team Providers Care Patient Case Coordinator Name Role Phone Angie Riddle MD Unavailable [phone] Luisa Mitchell DO Primary Care Provider [phone] Reason for Visit * Auth/Cert (Routine) Specialty Diagnoses / Procedures Referred By Viridiana t Referred To Contact Diagnoses SSS (sick sinus syndrome) (CMS/HCC) (HCC) SSS (sick sinus syndrome) (CMS/HCC) (HCC) [I49.5] Procedures NE REMVL PERM PM PLS GEN W/REPL PLSE GEN 2 LEAD SYS REMOVE/REPLACE PACEMAKER (PPM) DUAL LEAD SYSTEM [id number] Arnold Stout III, MD [address] [address] Phone: tel: fax: Referral ID Status Reason Start Date Expiration Date Visits Re quested Visits Authorized [id number] 11/08/2023 1 1 Encounter Details Date Type Department Care Team (Latest Contact Info) Description 11/15/2023 3:28 PM CDT Anesthesia Event [facility] Electrophysiology Lab [address] [place] [id number] Jonathan Plata MD [address] [place] [address] Anesthesia Record Procedure Summary Procedure Name Responsible Anesthesiologist Anesthesia Start Time Anesthesia Stop Time REMOVE/REPLACE PACEMAKER (PPM) DUAL LEAD SYSTEM [id number] Jonathan Plata MD 11/15/23 1528 11/15/23 1622 Events Date Time Event Comment 11/15/2023 1130 1528 An Start 1528 An Start Data 1535 An Induction The patient was reevaluated immediately before moderate or deep sedation use and before anesthesia induction. 1538 Anesthesia Ready 1548 Local injected by surgeon 1615 an stop data 1622 Handoff to RN I completed my handoff to the receiving nurse during which we: 1. Patient identified 2. Responsible provider identified 3. Pertinent medical history reviewed 4. Procedure type and surgical course discussed 5. Intraoperative anesthetic management and any significant issues discussed 6. Expectations and concerns for postop period discussed 7. Questions solicited from receiving nurse 8. Patient disposition at the time of handoff: No value filed. 1622 An Stop 1622 Release from care Meds Name Total fentaNYL 25 mcg lidocaine (CARDIAC) syringe 2 % 5 mL propofol 20 mg propofol 96.56 mg ondansetron 4 mg ceFAZolin 2,000 mg dexmedeTOMIDine 4 mcg phenylephrine (MARILEE-SYNEPHRINE) 10 mg in sodium chloride 0.9% 100 mL solution 0.31 mg LR 350 mL * Agents Name O2 N2O Air Desflurane Inspired Desflurane * Blood No blood administrations on file. 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 Gender Identity Not on file Sexual Orientation Not on file documented as of this encounter OR Notes * Anesthesia Postprocedure Evaluation - Jonathan Plata MD - 11/15/2023 4:57 PM CDT Patient: Francine Erwin Procedure Summary Date: 11/15/23 Room / Location: [facility] EP LAB D / [facility] EP LAB Anesthesia Start: 1528 Anesthesia Stop: 162 Procedure: REMOVE/REPLACE PACEMAKER (PPM) DUAL LEAD SYSTEM [id number] Diagnosis: SSS (sick sinus syndrome) (CMS/HCC) (HCC) (SSS (sick sinus syndrome) (CMS/HCC) (HCC) [I49.5]) Providers: Arnold Stout III, MD Responsible Provider: Jonathan Plata MD Anesthesia Type: MAC ASA Status: 3 Anesthesia Type: MAC Last vitals BP 166/90 Pulse 59 Temp 37 ??C (98.6 ??F) (Tympanic) Resp 16 SpO2 93% Anesthesia Post Evaluation Patient location during evaluation: PACU Patient participation: complete - patient participated Level of consciousness: follows simple commands and fully awake Pain score: 0 Pain management: adequate Airway patency: adequate Cardiovascular status: acceptable and hemodynamically stable Respiratory status: acceptable Hydration status: acceptable Pt is: normothermic Nausea/Vomiting status: none No notable events documented. * Anesthesia Preprocedure Evaluation - Jonathan Plata MD - 11/15/2023 11:28 AM CDT Images from the original note were not included. Anesthesia Evaluation Francine Erwin is a 83 y.o. female REMOVE/REPLACE PACEMAKER (PPM) DUAL LEAD SYSTEM [id number] Pre-Op Diagnosis Codes: * SSS (sick sinus syndrome) (CMS/HCC) (HCC) [I49.5] HISTORY HPI Had breakfast at 0700, Lerna with sugar free jam? - voids NPO, will have to wait 8H so 1500 Past Medical History Information obtained from: patient and chart. Information obtained during: In Person Neurological Neuro/Psych system: negative Cardiovascular + Hypertension + Atrial fibrillation/flutter - + Other arrhythmia + Pacemaker/ICD (V sensed @ 85 bpm) - Brand: Medtronic. Indication: sinus node dysfunction. Pacemaker dependent: no + Rhythm disturbances - hypertension. Respiratory Respiratory system: negative Hepatic / Heme Hepatic/Heme system: negative Gastrointestinal GI system: negative Renal / Renal/ system: negative Musculoskeletal/Pain Musculoskeletal/Pain system: negative Endocrine / Other + Metabolic disorder Endocrine/Other system: negative Functional Capacity Functional capacity: 4-6 METs Day of Surgery assessments + Possibility of assessed - ruled out by patient's provided history. Review of Systems Pertinent negatives: productive cough; wheezing; SOB; recent cold/flu; fever and chest pain Patient Active Problem List Diagnosis Date Noted SSS (sick sinus syndrome) (CMS/HCC) ([facility]) 11/08/2023 Paroxysmal atrial fibrillation (CMS/HCC) ([facility]) 09/07/2016 Pacemaker 08/26/2016 Breast mass, left 08/19/2016 Past Medical History: Diagnosis Date Breast mass, left 08/19/2016 Hyperlipidemia Hyperlipidemia; Comments: [facility] 07/20/2013 - Hypertension Hypertension; Comments: [facility] 07/20/2013 - Pacemaker 08/26/2016 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 Chronic A lead is from 09-13-03. [facility]. Paroxysmal atrial fibrillation (CMS/HCC) ([facility]) PAF - Paroxysmal atrial fibrillation; Comments: [facility] 07/20/2013 - Sick sinus syndrome ([facility] ([facility]) SSS; Comments: [facility] 07/20/2013 - Past Surgical History: Procedure Laterality Date CARDIAC PACEMAKER PLACEMENT 2010 Cardiac pacemaker CARDIAC PACEMAKER PLACEMENT Cardiac pacemaker INSERT / REPLACE / REMOVE PACEMAKER OB History Para Term AB Living 2 SAB IAB Ectopic Multiple Live Births 2 No Known Allergies Taking? Last Dose Start Date End Date Provider atorvastatin (LIPITOR) 20 mg tablet Unknown -- -- Provider, MD Mikhail CALCIUM CITRATE-VITAMIN D3 ORAL Unknown -- -- Provider, MD Mikhail dabigatran (Pradaxa) 150 mg capsule 11/12/2023 03/25/23 -- Yoni Matamoros MD Take 1 capsule (150 mg total) by mouth 2 (two) times a day dilTIAZem CD 180 mg 24 hr capsule Unknown 08/01/23 -- Mikhail Christianson MD meloxicam (MOBIC) 7.5 mg tablet Unknown -- -- Mikhail Christianson MD metoprolol XL (TOPROL-XL) 50 mg extended release tablet Not Taking 10/28/23 -- Yoni Matamoros MD TAKE 1 TABLET BY MOUTH EVERY DAY Patient not taking: Reported on 11/12/2023 omega-3 fatty acids-vitamin E (FISH OIL) 1,000 mg capsule Unknown 07/21/13 -- Nilton Cho MD take 1 by Oral route 3 times every day Patient taking differently: Take 1 mg by mouth 2 (two) times a day VIT C/E/ZN/COPPR/LUTEIN/ZEAXAN (PRESERVISION AREDS 2 ORAL) Unknown -- -- Mikhail Christianson MD vitamin b complex tablet Unknown -- -- Mikhail Christianson MD No current facility-administered medications for this encounter. Social History Tobacco Use Smoking Status Former Current packs/day: 0.00 Types: Cigarettes Quit date: 1984 Years since quittin.7 Smokeless Tobacco Never Alcohol Use: Not on file Substance and Sexual Activity Drug Use No Family History Problem Relation Age of Onset Coronary artery disease Father Coronary Artery Bypass Graft; Lung cancer Father Cancer, lung; Cause of : Cancer, lung Cancer Father Other Other Family history of [place]; Western/ [place] Mother Skin cancer Mother There were no vitals filed for this visit. PT: No results found for requested labs within last 30 days. INR: No results found for requested labs within last 30 days. APTT: No results found for requested labs within last 30 days. Hgb A1C: No results found for requested labs within last 30 days. CBC RBC: No results found for requested labs within last 30 days. RDW: No results found for requested labs within last 30 days. MCHC: No results found for requested labs within last 30 days. MCH: No results found for requested labs within last 30 days. MCV: No results found for requested labs within last 30 days. Hct: No results found for requested labs within last 30 days. Hgb: No results found for requested labs within last 30 days. WBC: No results found for requested labs within last 30 days. MPV: No results found for requested labs within last 30 days. Platelets: No results found for requested labs within last 30 days. RDW CV: No results found for requested labs within last 30 days. RDW Sd: No results found for requested labs within last 30 days. BMP Glucose: No results found for requested labs within last 30 days. Calcium: No results found for requested labs within last 30 days. Sodium: No results found for requested labs within last 30 days. Potassium: No results found for requested labs within last 30 days. CO2: No results found for requested labs within last 30 days. Chloride: No results found for requested labs within last 30 days. BUN: No results found for requested labs within last 30 days. Creatinine: No results found for requested labs within last 30 days. DOS Physical Exam Medical history, medications, and allergies reviewed. Attestation: This PAT evaluation 11/15/2023. Airway Exam: Mallampati: II Cervical ROM: FROM TM distance: normal Cardiovascular Exam: Rate: regular Rhythm: regular Pulmonary Exam: (Unlabored breathing) Dental Exam: Otherwise appears intact Skin Exam: Skin is warm. Abdominal Exam: Abdomen is soft. Current state: Patient's current state is cooperative. Anesthesia Plan ASA 3 My patient is approved for the Anesthesia Controlled Medication protocol when under care of a GUEST SERVICES MANAGER Planned anesthesia: MAC Induction: Induction: intravenous. Postoperative Plan: No plan for postoperative opioid use. No postoperative mechanical ventilation intended. Patient's planned disposition post procedure is Outpatient. Informed Consent: Discussed plan with GUEST SERVICES MANAGER. Anesthesia plan and risks discussed with patient. Plan and Consent Comments: Backup plan is a general anesthetic with endotracheal tube Consent and Attending signature: I and/or my designee have discussed the anesthesia plan, benefits, possible alternatives, parental presence at time of induction (if indicated), and clinically relevant risks that may include dental injury, unintentional awareness, and/or other complications. The patient and/or parent/legal guardian understand, and agree to proceed. All questions answered. documented in this encounter Plan of Treatment Not on file documented as of this encounter Visit Diagnoses Not on filedocumented in this encounter Administered Medications Inactive Administered Medications - up to 3 most recent administrations Medication Order MAR Action Action Date Dose Rate Site ceFAZolin (ANCEF) injection intravenous, Administer over 3 Minutes, As needed, Starting on Wed11/15/23 at 1536, Anesthesia Intra-op Given 11/15/2023 3:36 PM CDT 2,000 mg dexmedeTOMIDine (PRECEDEX) injection intravenous, As needed, Starting on Wed11/15/23 at 1541, Anesthesia Intra-op Given 11/15/2023 3:41 PM CDT 4 mcg fentaNYL (SUBLIMAZE) preservative free injection intravenous, As needed, Starting on Wed11/15/23 at 1540, Anesthesia Intra-op Given 11/15/2023 3:40 PM CDT 25 mcg Lactated Ringer's (LR) infusion intravenous, Continuous PRN, Starting on Wed11/15/23 at 1531, Anesthesia Intra-op New Bag 11/15/2023 3:31 PM CDT lidocaine (cardiac) (XYLOCAINE) preservative free injection intravenous, As needed, Starting on Wed11/15/23 at 1535, Anesthesia Intra-op, Indications: Ventricular ArrhythmiasIndications:V entricular Arrhythmias Given 11/15/2023 3:35 PM CDT 5 mL ondansetron (ZOFRAN) injection intravenous, Administer over 2 Minutes, As needed, Starting on Wed11/15/23 at 1549, Anesthesia Intra-op Given 11/15/2023 3:49 PM CDT 4 mg phenylephrine (MARILEE-SYNEPHRINE) 10 mg in sodium chloride 0.9% 100 mL solution intravenous, Continuous PRN, Starting on Wed11/15/23 at 1547, Anesthesia Intra-op New Bag 11/15/2023 3:47 PM CDT 0.4 mcg/kg/min 12.36 mL/hr propofoL (DIPRIVAN) 10 mg/mL IV intravenous, Continuous PRN, Starting on Wed11/15/23 at 1535, Anesthesia Intra-op New Bag 11/15/2023 3:35 PM CDT 75 mcg/kg/min 23.175 mL/hr propofoL (DIPRIVAN) 10 mg/mL IV intravenous, As needed, Starting on 11/15/23 at 1541, Anesthesia Intra-op Given 11/15/2023 3:41 PM CDT 20 mg documented in this encounter Care Teams Patient Case Coordinator Relationship Specialty Start Date End Date Luisa Mitchell DO [address] [place] [address] PCP - General Internal Medicine 08/11/22 Angie Riddle MD [address] [place] [address] Gynecology 08/19/16 documented as of this encounter
--- OUTSIDE RECORDS SUMMARY | 2024-03-01 05:49 | XMS_ITS | Referral Summary ---
Author Organization [facility] Address [address] [place] [address] Care Team Providers Care Forklift Truck Operator Name Role Phone Angie Riddle MD Unavailable [phone] Luisa Mitchell DO Primary Care Provider [phone] Encounters Date Type Department Care Team Description 01/14/2024 Telephone [facility] Medical [facility] Cardiology [address] [address] Yoni Matamoros MD Med Management 01/03/2024 Telephone [facility] Cardiology [address] [place] [address] [address] [address] Yoni Matamoros MD 12/06/2023 1:00 PM CDT Ancillary Procedure Arrhythmia Center [address] [facility] [address] [address] Cardiac pacemaker in situ (Primary Dx); SSS (sick sinus syndrome) (CMS/HCC) (HCC) from Last 3 Months Allergies No known active allergies Medications omega-3 [...] sinus syndrome) (CMS/HCC) 11/08/2023 Paroxysmal atrial fibrillation ([facility]) 017 Overview (09/07/2016): On chronic AC. Assessment [...] Chronic A lead [facility] 09-13-03. [facility] 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 Gender Identity Not on file Sexual Orientation Not on file Last Filed Vital Signs Vital Sign Reading [...] 11/15/2023 11:55 AM CDT Plan of Treatment Not on file Medical Devices Implanted Type Area Service Center Assistant Device Identifier Shelf Expiration Date Model / Serial / Lot Medtronic Inc Kylah S Mri Surescan 50.8x46.6mm 2 Chamber 7.4mm Pacemaker 22.5gm [id number] - [id number] - [id number] Implanted:Qty: 1 on 11/15/2023 by Arnold Stout III, MD at [facility] Pacemaker Medtronic Inc 01/26/2025 [id number] / [id number] / Explanted Type Area Service Center Assistant Device Identifier Shelf Expiration Date Model / Serial / Lot Pacemaker-2010 Implanted:10/2010 by Skinny Fitzgerald MD (Quantity not on file) Explanted:Qty: 1 on 11/15/2023 by Arnold Stout III, MD at [facility] Pacemaker Left: Chest Medtronic sick sinus syndrome ADAPTA / [id number] / Description: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 Chronic A lead is from 09-13-03. Marquis. Manjula-Lia implant-[employer] She is on Pradaxa for AC. Procedures [...] PM CHECK (IN OFFICE) Patient ID: Francine Ewrin is a 83 y.o. female This patient [...] to SARMAD Episodes last 90 days/Comments: AF Stamps 34 %, there were 28 episodes of [...] Result from Last 3 Months Insurance MEDICARE [place] [place] MEDICARE [employer] Care Teams Forklift Truck Operator Relationship Specialty Start Date End Date Luisa Mitchell DO [address] [place], [place] [id number] PCP - General Internal Medicine 08/11/22 Angie Riddle MD [address] [place] [address] Gynecology 08/19/16
--- OUTSIDE RECORDS SUMMARY | 2024-03-01 05:49 | XMS_ITS | Encounter Summary ---
Author Organization [facility] Healthcare Address [address] [place] [address] Care Team Providers Care Ground Systems Engineer Name Role Phone Angie Riddle MD Unavailable [phone] Luisa Mitchell DO Primary Care Provider [phone] Encounter Details Date Type Department Care Team (Late st Contact Info) Description 01/03/2024 Telephone [facility] Medical Group Cardiology [address] [place] [address] Yoni Matamoros MD [address] [facility] [address] [place] [address] Social History Tobacco Use Types Packs/Day Years [...] on file 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 He confirmed fax and is processing Pradaxa for pt. Mr. Erwin called and informed. H ROUNDER MACHINE * Telephone Encounter - Analisa Sheets MA - 01/06/2024 2:34 PM ROUGH ROUNDER MACHINE Signed, faxed and scanned. H ROUNDER MACHINE * Telephone Encounter - Shakira Iyer - 01/06/2024 1:12 PM CST Could please have Dr. Matamoros sign this script for pradaxa today and fax to [facility] at [phone] please. H ROUNDER MACHINE * Telephone Encounter - Shakira Iyer - 01/03/2024 1:33 PM CST EDMdesigner states script for Pradaxa not received. Given date and faxed confirmation to fax number. Pt gave [phone]. I resent script to this fax number. H ROUNDER MACHINE documented in this encounter Plan of Treatment Not on file documented as of this encounter Visit Diagnoses Not on filedocumented in this encounter Care Teams Ground Systems Engineer Relationship Specialty Start Date End Date Luisa Micthell DO [address] [place] [address] PCP - General Internal Medicine 08/11/22 Angie Riddle MD [address] [place] [address] Gynecology 08/19/16 documented as of this encounter
--- OUTSIDE RECORDS SUMMARY | 2024-03-01 05:49 | XMS_ITS ---
Author Organization [facility] steve Address [address] [place] [address] Care Team Providers Care Substation Inspector Name Role Phone Luisa Mitchell DO Primary Care Provider Emelyn BonnerFrancisca Unavailable [phone] Allergies No Known Allergies REASON FOR VISIT yd/2 week follow up/flc, joint pain, referred by Dr. Luisa Mitchell, [address], [address], [place] [address], tel [phone], fax [phone] Medications Medication SIG (Take, Route, Frequency, Duration) Notes Start Date End Date Status Eye Health - as directed Orally Active B Complex - as directed Orally Active Calcium 500 Active dilTIAZem HCl ER 240 MG 1 tablet Orally Once a day for 30 day(s) Active Lynn 3-6-9 - as directed Orally Active Atorvastatin Calcium 20 MG 1 tablet Oral ly Once a day for 30 day(s) Active Hydroxychloroquine Sulfate 200 MG 1 Orally daily with food for 30 days 10/13/2023 01/10/2024 Active Pradaxa 150 MG 1 capsule Orally Twice a day for 30 day(s) Active Metoprolol Succinate ER 25 MG 1 tablet O rally Once a day for 30 day(s) Active Meloxicam 7.5 MG 1 tablet Orally Once a day for 30 day(s) Active Social History Tobacco Use: Social History [...] Problem Status W/U Status Risk Notes Problem 188932666 Rheumatoid arthritis 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, multiple sites (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) Active confirmed Vital Signs Temperature 98.0 degrees Fahrenheit 10/13/19 Blood pressure systolic 122 mm Hg 10/13/19 Blood pressure diastolic 80 mm Hg 024 Heart Rate 86 /min 10/13/2023 Height 62 in 10/13/2023 Weight 116.0 lbs 10/13/2023 BMI 21.21 kg/m2 10/13/2023 Oximetry 98 % 10/13/2023 Encounters Encounter Location Date Provider Diagnosis [facility] [address] [place] [address] 10/13/2023 Francisca Bonner Rheumatoid arthritis 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, multiple sites M06.09 ; Generalized osteoarthritis M15.9 and High risk medication use Z79.899 Assessments Encounter Date Diagnosis (ICD Code) Assessment Notes Treatment Notes Treatment Clinical Notes Section Notes 10/13/2023 Rheumatoid arthritis 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, multiple sites (ICD-10 - M06.09) anti-CCP 69, h as seronegative rheumatoid arthritis and erosive osteoarthritis based on Xrays, start plaquenil 200mg/day, return in 3 months 10/13/2023 Generalized osteoarthritis (ICD-10 - M15.9) anti-CCP 69, childress s seronegative rheumatoid arthritis and erosive osteoarthritis based on Xrays, start plaquenil 200mg/day, return in 3 months 10/13/2023 High risk medication use (ICD-10 - Z79.899) anti-CCP 69, has seronegative rheumatoid arthritis and erosive osteoarthritis based on Xrays, start plaquenil 200mg/day, return in 3 months Plan Of Treatment Medication Medication Name Sig Start Date Stop Date Notes Hydroxychloroquine Sulfate 200 MG 1 Oral ly daily with food for 30 days 10/13/2023 01/10/2024 Next Appt Details Follow Up: 3 Months, Reason: Provider Name:Francisca Yimi, 04/13 01:30:00 PM, [address], [place], [address], Progress Notes * Pablo CONNOROB: 2 (83 yo F)Acc No.[id number]:10/13/2023 Patient:?Francine CONNOR Provider:?FRANCISCA BONNER MD :1940???Age:83 Y???Sex:Female D ate:10/13/2023 Address:[address] [place], [place] [address] Pcp:Luisa Mitchell, DO Subjective: * Chief Complaints: * ???Yd/2 week follow up/flcJo int painreferred by Dr. Luisa Mitchell, [address] [facility], [address], [place] [address], tel [phone], fax [phone] * HPI: ???joint pain:?hands and knees aching today, feet bother her too Hands have been aching on and off for 6 months. The pain is mild. The fingers have changed shape. She has noticed some swelling. Feet? and knees bother her too. She has noticed some swelling in the right knee. Am stiffness: a few minutes. She has been taking mobic 7.5mg/day for years. She does not know if it has helped with joint pain. 09/27/23, CCP 69, CÉSAR/RF/SSA/SSB (-), ESR, CRP, CK normal,?uric acid 5.6, Cr 0.93, GFR 62, BUN 43, CBC normal, Xrays of R knee: moderate to severe osteoarthritis, R foot: severe OA 1st MTP, hands: erosive OA - DIPs and PIPs 05/2023, Cr 0.81, GFR 73, AST/ALT normal, HCV (-). * ROS:?General / Constitutional:?Patient denies?change in appetite, chills, fatigue, fever, weight loss, weakness, fevers, chills.?Patient complains of?fatigue.?Comments?See HPI for details.?Musculoskeletal:?Patient complains of?see HPI.?Comments?See HPI for details.?Skin:?Patient denies?rash.?Comments?See HPI for details .?Neurologic:?Patient denies?dizziness, gait abnormality, headache, tingling / numbness .? * Medical History:? * Surgical History:?pace maker * Hospitalization/Major Diagno stic Procedure:? * Family History:? lung cancer, CAD, renal failure. * Social History:?Tobacco Use:?Tobacco Control (Standard)?Tobacco use:?Former smoker,?How long has it been since you last smoked??Greater than 10 years.?Drug/Alcohol:?Do you drink alcohol?: Rarely. ???Household:?Household?Marital status:?,?Number of children in household:?0.?Miscellaneous:?Exercise: [employer] daily. * Medications:?TakingPradaxa 1 50 MG Capsule 1 capsule Orally Twice a day Atorvastatin Calcium 20 MG Tablet 1 tablet Orally Once a day Meloxicam 7.5 MG Tablet 1 tablet Orally Once a day Metoprolol Succinate ER 25 MG Tablet Extended Release 24 Hour 1 tablet Orally Once a day Calcium 500 B Complex - Capsule as directed Orally Lynn 3-6-9 - Capsule as directed Orally dilTIAZem HCl ER 240 MG Tablet Extended Release 24 Hour 1 tablet Orally Once a day Eye Health - Capsule as directed Orally Medication List reviewed and reconciled with the patientTaking Pradaxa 150 MG Capsule 1 capsule Orally Twice a day Taking Atorvastatin Calcium 20 MG Tablet 1 tablet Orally Once a day Taking Meloxicam 7.5 MG Tablet 1 tablet Orally Once a day Taking Metoprolol Succinate ER 25 MG Tablet Extended Release 24 Hour 1 tablet Orally Once a day Taking Calcium 500 Taking B Complex - Capsule as directed Orally Taking Lynn 3-6-9 - Capsule as directed Orally Taking dilTIAZem HCl ER 240 MG Tablet Extended Release 24 Hour 1 tablet Orally Once a day Taking Eye Health - Capsule as directed Orally Medication List reviewed and reconciled with the patient * Allergies:?N.K.D.A.no[Allerg ies Verified] Objective: * Vitals:?BP:122/80mm Hg, HR:8 6/min, Temp:98.0F, Oxygen sat %:98%, Wt:116.0lbs, Ht:62in, BMI:21.21Index. * ???Past Orders: ???Lab:CRP (C-REACTIVE PROTE IN) (Order Date - 09/27/2023) (Collection Date & Time - 09/27/2023 02:33 PM) ? Value Reference Range ?CRP <1.0 0.0-10.0 - mg/L ???Lab:RHEUMATOID FACTOR (RF ), QUANTITATIVE (Order Date - 09/27/2023) (Collection Date & Time - 09/27/2023 02:33 PM) ? Value Reference Range ?Rheumatoid Factor <10 <= 14 - IU/mL ?Rheumatoid Factor Interp Negative Negative - ???Lab:CK (Order Date - 08/30) (Collection Date & Time - 09/27/2023 02:33 PM) ? Value Reference Range ?CK, Total 137 26-192 - u nits/L ???Lab:URIC ACID (Order Date - 09/27/2023) (Collection Date & Time - 09/27/2023 02:33 PM) ? Value Reference Range ?Uric Acid 5.6 2.3-6.6 - mg/dL ???Lab:CMP(COMPREHENSIVE MET ABOLIC PANEL) (Order Date - 09/27/2023) (Collection Date & Time - 09/27/2023 02:33 PM) ? Value Reference Range ?Albumin 4.5 3.5-5.0 - g/ dL ?Alkaline Phosphatase 51 34-104 - units/L ?ALT (SGPT) 16 9-43 - un its/L ?Anion Gap 6 4-13 - mmo l/L ?AST (SGOT) 26 13-39 - u nits/L ?Calcium 9.9 8.3-10.5 - m g/dL ?Chloride 102 98-107 - mm ol/L ?CO2 30 21-31 - mmol/L ?Creatinine 0.93 0.60-1.30 - mg/dL ?eGFRcr (CKD-EPI 2020) 62 >=60 - mL/min/1.73 m2 ?Glucose 97 70-100 - mg/ dL ?Potassium 4.5 3.5-5.1 - mmol/L ?Protein 6.7 6.4-8.3 - g/ dL ?Sodium 138 133-146 - mmo l/L ?Total Bilirubin 0.5 0.2- 1.2 - mg/dL ?Urea Nitrogen 43 H 7-25 - mg/dL ???Lab:CBC W/DIFF (Order Roberto e - 09/27/2023) (Collection Date & Time - 09/27/2023 02:33 PM) ? Value Reference Range ?WBC 7.3 3.5-10.5 - 10'3 /uL ?RBC 4.38 (Based on docum ented legal sex) 3.80-5.20 - 10'6/uL ?HGB 13.9 (Based on docum ented legal sex) 11.6-15.4 - g/dL ?HCT 41.7 (Based on docum ented legal sex) 34.0-45.0 - % ?MCV 95.2 80.0-99.0 - fL ?MCH 31.7 27.0-34.0 - pg ?MCHC 33.3 32.0-35.5 - g/d L ?RDW 14.1 11.0-15.0 - % ?PLT 191 150-400 - 10'3/ uL ?MPV 11.9 8.8-12.1 - fL ?NRBCs 0.0 0.0 - % ?Absolute NRBC's 0.0 No r eference range established - 10'3/uL ?Neutrophils 55.5 34.0-73. 0 - % ?Lymphocytes 34.1 15.0-50. 0 - % ?Monocytes 8.6 1.0-15.0 - % ?Basophils 0.1 0.0-2.0 - % ?Eosinophils 1.6 0.0-8.0 - % ?Immature Granulocytes 0.1 No defined reference range - % ?Absolute Basophils 0.0 0 .0-0.3 - 10'3/uL ?Absolute Eosinophils 0.1 0.0-0.6 - 10'3/uL ?Absolute Immature Granulocytes 0.0 0.00-0.10 - 10'3/uL ?Absolute Lymphocytes 2.5 1.0-4.0 - 10'3/uL ?Absolute Monocytes 0.6 0 .2-1.0 - 10'3/uL ?Absolute Neutrophils 4.1 1.5-8.0 - 10'3/uL ???Lab:SEDIMENTATION RATE, E SR (Order Date - 09/27/2023) (Collection Date & Time - 09/27/2023 02:33 PM) ? Value Reference Range ?ESR 2 (Based on docum ented legal sex) 0-30 - mm/Hour ???Lab:CYCLIC CITRULLINATED PEPTIDE (CCP) AB, IgG/IgA (Order Date - 09/27/2023) (Collection Date & Time - 09/27/2023 02:33 PM) ? Value Reference Range ?CCP Antibodies IgG/IgA 69 H 0-19 - units ???Lab:G6PD, QUANTITATIVE, R BC (Order Date - 09/27/2023) (Collection Date & Time - 09/27/2023 02:33 PM) ? Value Reference Range ?HRMAAMZ-3-QAMAZAAHF DEHYDROGENASE 16.3 7.0-20.5 - U/g Hgb ???Lab:SSA/SSB ANTIBODY (SJO GREN'S) (Order Date - 09/27/2023) (Collection Date & Time - 09/27/2023 02:33 PM) ? Value Reference Range ?SSA (Ro) Ab <0.2 0.0-0.9 - AI ?SSA (Ro) Ab Interp Negative N egative - ?SSB (La) Ab <0.2 0.0-0.9 - AI ?SSB (La) Ab Interp Negative N egative - ???Lab:CÉSAR SCREEN/REFLEX TIT ER/PATTERN (Order Date - 09/27/2023) (Collection Date & Time - 09/27/2023 02:33 PM) ? Value Reference Range ?CÉSAR Negative Negative - * Examination: ???General Examination: ?General appearance:?alert, well-nourished and in no acute distress , alert, well-nourished and in no acute distress.?Head:?normocephalic, atraumatic , normocephalic, atraumatic.?Eyes:?normal , normal.?Skin:?no rash , no rash.?Lungs:?respiratory effort normal , respiratory effort normal.?Psychiatry: ?Affect / mood:?normal affect, normal mood , appropriate.?Neurology: ?Speech:?normal.?speech normal. ???Rheumatology: ???Herbeden's and Lilli's nodes, R 3rd PIP tender, +swelling, R 1st MTP and R knee tender, no obvious swelling. Assessment: * Assessment: 1.?Rheumatoid arthritis with out rheumatoid factor, multiple sites - M06.09 (Primary)???2.?Generalized osteoarthritis - M15.9???3.?High risk medication use - Z79.899??? anti-CCP 69, has seronegativ e rheumatoid arthritis and erosive osteoarthritis based on Xrays, start plaquenil 200mg/day, return in 3 months Plan: * Treatment: * Procedure Codes:? * Follow Up:?3 Months * Billing Information: * Visit Code:? 99263 Office Visit, Est Pt., Level 4. * Procedure Codes:? * Sign off status: Completed true * Provider:?FRANCISCA BONNER MD Date:?10/13/2023 Generated for Orquidea rowland/sIac/Nargis on:?03/01/2024 05:48 AM APPAREL PATTERN MAKER History and Physical Notes * HPI (History of Present Illness) Category Sub-Category Detail Notes Category Not es joint pain hands and knees aching today, feet bother her too Hands have been aching on and off for 6 months. The pain is mild. The fingers have changed shape. She has noticed some swelling. Feet and knees bother her too. She has noticed some swelling in the right knee. Am stiffness: a few minutes. She has been taking mobic 7.5mg/day for years. She does not know if it has helped with joint pain. 09/27/23, CCP 69, CÉSAR/RF/SSA/SSB (-), ESR, CRP, CK normal, uric acid 5.6, Cr 0.93, GFR 62, BUN 43, CBC normal, Xrays of R knee: moderate to severe osteoarthritis, R foot: severe OA 1st MTP, hands: erosive OA - DIPs and PIPs 05/2023, Cr 0.81, GFR 73, AST/ALT normal, HCV (-) Examination Category Sub-Category Detail Notes Category Not es Rheumatology Herbeden's and Lilli's nodes, R 3rd PIP tender, +swelling, R 1st MTP and R knee tender, no obvious swelling Neurology Speech: normal speech normal Psychiatry Affect / mood: normal affect, n ormal mood , appropriate General Examination General appearance: alert, w ell-nourished and in no acute distress , alert, well-nourished and in no acute distress Head: normocephalic, atrau matic , normocephalic, atraumatic Eyes: normal , normal Lungs: respiratory effort n ormal , respiratory effort normal Skin: no rash , no rash
--- OUTSIDE RECORDS SUMMARY | 2024-03-01 05:49 | XMS_ITS ---
Author Organization [facility] steve Address [address] [place] [address] Care Team Providers Care Shingle Shearing Machine Operator Name Role Phone Luisa Mitchell DO Primary Care Provider Emelyn BonnerFrancisca Unavailable [phone] Allergies No Known Allergies REASON FOR VISIT yd/3 month follow up/flc, RA, referred by Dr. Luisa Mitchell, [address], [address], [place] [address], tel [phone], fax [phone] Medications Medication SIG (Take, Route, Frequency, Duration) Notes Start Date End Date Status [place] 3-6-9 - as directed Orally Active dilTIAZem HCl ER 240 MG 1 tablet Orally Once a day for 30 day(s) Active Hydroxychloroquine Sulfate 2 00 MG TAKE 1 TABLET BY MOUTH EVERY DAY WITH FOOD for 30 Active Pradaxa 150 MG 1 capsule Orally Twi ce a day for 30 day(s) Active Eye Health - as directed Orally Active B Complex - as directed Orally Active Metoprolol Succinate ER 25 MG 1 tablet O rally Once a day for 30 day(s) Active Calcium 500 Active Atorvastatin Calcium 20 MG 1 tablet [...] Problem Status W/U Status Risk Notes Problem Generalized osteoarthritis (406424075) Generalized osteoarthritis (M15.9) Active confirmed Vital Signs Temperature 97.0 degrees Fahrenheit 01/13/20 24 Blood pressure systolic 108 mm Hg 01/13/20 24 Blood pressure diastolic 70 mm Hg 024 Heart Rate 76 /min 01/13/2024 Height 62 in 01/13/2024 Weight 113.0 lbs 01/13/2024 BMI 20.67 kg/m2 01/13/2024 Oximetry 94 % 01/13/2024 Height-cm 157.48 cm 01/13/2024 Weight-kg 51.25 kg 01/13/2024 Encounters Encounter Location Date Provider Diagnosis [facility] [address] [place] [address] 01/13/2024 Francisca Bonner Rheumatoid arthritis 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, multiple sites M06.09 ; Generalized osteoarthritis M15.9 and High risk medication use Z79.899 Assessments Encounter Date Diagnosis (ICD Code) Assessment Notes Treatment Notes Treatment Clinical Notes Section Notes 01/13/2024 Rheumatoid arthritis 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, multiple sites (ICD-10 - M06.09) advised to sto p mobic due to being on pradaxa and borderline GFR, hx of bradycardia and atrial fibrillation s/p pacer, advised her to call family advocate and ask if plaquenil can be continued (it has hlped with joint pain) 01/13/2024 Generalized osteoarthritis (ICD-10 - M15.9) advised to stop mobic due to being on pradaxa and borderline GFR, hx of bradycardia and atrial fibrillation s/p pacer, advised her to call family advocate and ask if plaquenil can be continued (it has hlped with joint pain) 01/13/2024 High risk medication use (ICD-10 - Z79.899) advised to st op mobic due to being on pradaxa and borderline GFR, hx of bradycardia and atrial fibrillation s/p pacer, advised her to call family advocate and ask if plaquenil can be continued (it has hlped with joint pain) Plan Of Treatment Next Appt Details Follow Up: 3 Months, Reason: Provider Name:Francisca Bonner, 04/13 01:30:00 PM, [address], [place], [address], Progress Notes * Pablo CONNOROB: 2 (83 yo F)Acc No.[id number]:01/13/2024 Progress Notes Patient:?Francine CONNOR Provider:?FRANCISCA BONNER MD :1940???Age:83 Y???Sex:Female D ate:01/13/2024 Address:[address] [place], [place] [id number] Pcp:Lusia Mitchell, DO Subjective: * Chief Complaints: * ???Yd/3 month follow up/flcR Areferred by Dr. Luisa Mitchell, [address] [facility], [address], [place] [address], tel [phone], fax [phone] * HPI: ???General Follow up:? on plaquenil 200mg/day and mobic 7.5mg/day, meds helping, joint pain better, hands and knees ache a little, am stiffness:?a few minutes.? on pradaxa, hx of atrial fibrillaiton, bradycadia s/p pacer 09/27/23, CCP 69, CÉSAR/RF/SSA/SSB (-), ESR, CRP, CK normal,?uric acid 5.6, Cr 0.93, GFR 62, BUN 43, CBC normal, Xrays of R knee: moderate to severe osteoarthritis, R foot: severe OA 1st MTP, hands: erosive OA - DIPs and PIPs 05/2023, Cr 0.81, GFR 73, AST/ALT normal, HCV (-). * ROS:?General / Constitutional:?Patient denies?fevers, chills.?Patient complains of?fatigue.?Musculoskeletal:?Patient complains of?see HPI.?Skin:?Patient denies?rash.? * Medical History:? * Surgical History:?pace maker * Hospitalization/Major Diagno stic Procedure:? * Family History:? lung cancer, CAD, renal failure. * Social History:?Tobacco Use:?Tobacco Control (Standard)?Tobacco use:?Former smoker,?How long has it been since you last smoked??Greater than 10 years.?Drug/Alcohol:?Do you drink alcohol?: Rarely. ???Household:?Household?Marital status:?,?Number of children in household:?0.?Miscellaneous:?Exercise: [employer] camp daily. * Medications:?TakingB Complex - Capsule as directed Orally [place] 3-6-9 - Capsule as directed Orally dilTIAZem HCl ER 240 MG Tablet Extended Release 24 Hour 1 tablet Orally Once a day Eye Health - Capsule as directed Orally Hydroxychloroquine Sulfate 200 MG Tablet TAKE 1 TABLET BY MOUTH EVERY DAY WITH FOOD Pradaxa 150 MG Capsule 1 capsule Orally Twice a day Atorvastatin Calcium 20 MG Tablet 1 tablet Orally Once a day Meloxicam 7.5 MG Tablet 1 tablet Orally Once a day Metoprolol Succinate ER 25 MG Tablet Extended Release 24 Hour 1 tablet Orally Once a day Calcium 500 Medication List reviewed and reconciled with the patientTaking B Complex - Capsule as directed Orally Taking [place] 3-6-9 - Capsule as directed Orally Taking dilTIAZem HCl ER 240 MG Tablet Extended Release 24 Hour 1 tablet Orally Once a day Taking Eye Health - Capsule as directed Orally Taking Hydroxychloroquine Sulfate 200 MG Tablet TAKE 1 TABLET BY MOUTH EVERY DAY WITH FOOD Taking Pradaxa 150 MG Capsule 1 capsule Orally Twice a day Taking Atorvastatin Calcium 20 MG Tablet 1 tablet Orally Once a day Taking Meloxicam 7.5 MG Tablet 1 tablet Orally Once a day Taking Metoprolol Succinate ER 25 MG Tablet Extended Release 24 Hour 1 tablet Orally Once a day Taking Calcium 500 Medication List reviewed and reconciled with the patient * Allergies:?N.K.D.A.no[Allerg ies Verified] Objective: * Vitals:?BP:108/70mm Hg, HR:7 6/min, Temp:97.0F, Oxygen sat %:94%, Wt:113.0lbs, Wt-k.25kg, Ht:62in, Ht-cm:157.48cm, BMI:20.67Index, Body Surface Area:1.5. * Examination: ???General Examination: ?General appearance:?alert, well-nourished and in no acute distress.?Head:?normocephalic, atraumatic.?Eyes:?normal.?Skin:?no rash.?Lungs:?respiratory effort normal.?Neurology: ?Speech:?normal.?Psychiatry: ?Affect / mood:?appropriate.?Rheumatology: ???sandro Heberden's and Lilli's nodes, finger joints nontender. Assessment: * Assessment: 1.?Rheumatoid arthritis with out rheumatoid factor, multiple sites - M06.09 (Primary)???2.?Generalized osteoarthritis - M15.9???3.?High risk medication use - Z79.899??? advised to stop mobic due to being on pradaxa and borderline GFR, hx of bradycardia and atrial fibrillation s/p pacer, advised her to call family advocate and ask if plaquenil can be continued (it has hlped with joint pain) Plan: * Treatment: * Procedure Codes:?G2211 Compl ex e/m visit add on * Follow Up:?3 Months * Billing Information: * Visit Code:? 65039 Office Visit, Est Pt., Level 4. * Procedure Codes:? G2211 Complex e/m visit add on. * OPERATIONS DIRECTOR Sign off status: Completed true * Provider:?FRANCISCA BONNER MD Date:?01/13/2024 Generated for Orquidea rowland/Isac/Nargis on:?03/01/2024 05:48 AM SLOT OPERATIONS DIRECTOR History and Physical Notes * HPI (History of Present Illness) Category Sub-Category Detail Notes Category Not es General Follow up on plaquenil 200mg/day and mobic 7.5mg/day, meds helping, joint pain better, hands and knees ache a little, am stiffness: a few minutes. on pradaxa, hx of atrial fibrillaiton, bradycadia s/p pacer 09/27/23, CCP 69, CÉSAR/RF/SSA/SSB (-), ESR, CRP, CK normal, uric acid 5.6, Cr 0.93, GFR 62, BUN 43, CBC normal, Xrays of R knee: moderate to severe osteoarthritis, R foot: severe OA 1st MTP, hands: erosive OA - DIPs and PIPs 05/2023, Cr 0.81, GFR 73, AST/ALT normal, HCV (-) Examination Category Sub-Category Detail Notes Category Not es Rheumatology sandro Heberden's and Lilli's nodes, finger joints nontender Neurology Speech: normal Psychiatry Affect / mood: appropriate General Examination General appearance: alert, w ell-nourished and in no acute distress Head: normocephalic, atrau matic Eyes: normal Lungs: respiratory effort n ormal Skin: no rash
--- OUTSIDE RECORDS SUMMARY | 2024-03-01 05:49 | XMS_ITS ---
Author Organization [facility] steve Address [address] [facility] [facility] [place] [address] Care Team Providers Care Director Of Optimization Name Role Phone Luisa Mitchell DO Primary Care Provider Francisca Wilson Unavailable [phone] Allergies No Known Allergies Results Component Value Reference Range Notes CÉSAR SCREEN/REFLEX TITER/SOSA WILTON Reviewed date:09/29/2023 04:20:32 PM Interpretation: Performing Lab:[facility], [address] [place] [address], [id number] Notes/Report: Anti-Nuclear Antibody Negative Negative CÉSAR titers and patterns are performed using an immunofluorescence assay technology. Follow up testing for positive specimens, if required, is performed using multiplex bead technology. SSA/SSB ANTIBODY (SJOGREN'S) Reviewed date:09/29/2023 04:20:32 PM Interpretation: Performing Lab:[facility], [address] [place] [address], [id number] Notes/Report: SSA Ro Antibody <0.2 0.0-0.9 AI SSA Ro Interpretation Negative Negative SSB La Antibody <0.2 0.0-0.9 AI SSB La Interpretation Negative Negative G6PD, QUANTITATIVE, RBC Reviewed date:09/29/2023 04:20:32 PM Interpretation: Performing Lab:[facility], [address] [place] [address], [address] Notes/Report: G-6-PD, RBC 16.3 7.0-20.5 U/g Hgb Performing Organization Information: Site ID: CB Name: [facility] Address: [address] [place] [id number] Director: Rodger Guillen CYCLIC CITRULLINATED PEPTIDE (CCP) AB, IgG/IgA Reviewed date:09/29/2023 04:20:31 PM Interpretation: Performing Lab:[facility], [address] [place], [address] Notes/Report: CCP Antibodies 69 0-19 units Negative <20 Weak positive 20 - 39 Moderate positive 40 - 59 Strong positive >59 Performed at: [address] [place] [id number] Property Coordinator: Parrish Campos PhD, Phone: [phone] SEDIMENTATION RATE, ESR Reviewed date:09/29/2023 04:20:31 PM Interpretation: Performing Lab:[facility], [address] [place], [address] Notes/Report: Sedimentation Rate 2 (Based on doc umented legal sex) 0-30 mm/Hour CBC W/DIFF Reviewed date:09/29/2023 04:20:31 PM Interpretation: Performing Lab:[facility], [address] [place], [address] Notes/Report: WBC 7.3 3.5-10.5 10'3/uL RBC 4.38 [...] No additional or changed results are expected. CMP(COMPREHENSIVE METABOLIC PANEL) Reviewed date:09/29/2023 04:20:31 PM Interpretation: [facility], [address] Notes/Report: Sodium 138 133-146 mmol/L Potassium 4.5 [...] 13-39 units/L Bilirubin, Total 0.5 0.2-1.2 mg/dL URIC ACID Reviewed date:09/29/2023 04:20:31 PM Interpretation: Performing Lab:[facility], [address] [place] [address], [address] Notes/Report: Uric Acid 5.6 2.3-6.6 mg/dL CK Reviewed date:09/29/2023 04:20:31 PM Interpretation: Performing Lab[facility], [address] [place] [address], [address] Notes/Report: CK, Total 137 26-192 units/L RHEUMATOID FACTOR (RF), MARJORIE TITATIVE Reviewed date:09/29/2023 04:20:31 PM Interpretation: Performing Lab:[facility], [address] [place] [address], [place], [address] Notes/Report: Rheumatoid Factor, Quantitative Interpretation Negative Negative RF, Quantitation <10 <=14 IU/mL CRP (C-REACTIVE PROTEIN) Reviewed date:09/29/2023 04:20:31 PM Interpretation: Performing Lab:[facility], [address] [place], [address] Notes/Report: C-Reactive Protein <1.0 0.0-10.0 mg/L REASON FOR VISIT joint pain, referred by Dr. Luisa Mitchell, [address], [address], [place] [address], tel [phone], fax [phone] Medications Medication SIG (Take, Route, Frequency, Duration) Notes Start Date End Date Status Calcium 500 Active B Complex - as directed Orally Active Silverton 3-6-9 - as directed Orally Active dilTIAZem HCl ER 240 MG 1 tablet Orally Once a day for 30 day(s) Active Eye Health - as directed Orally Active Meloxicam 7.5 MG 1 tablet Orally Once a day for 30 day(s) Active Metoprolol Succinate ER 25 MG 1 tablet Orally Once a day for 30 day(s) Active Pradaxa 150 MG 1 capsule Orally Twi ce a day for 30 day(s) Active Atorvastatin Calcium 20 MG 1 tablet [...] has it been since you last smoked? Soh[address] ter than 10 years Vital Signs Temperature 97.9 degrees Fahrenheit 09/27/19 24 Blood pressure systolic 130 mm Hg 09/27/19 24 Blood pressure diastolic 90 mm Hg 024 Heart Rate 88 /min 09/27/2023 Height 62 in 09/27/2023 Weight 114.0 lbs 09/27/2023 BMI 20.85 kg/m2 09/27/2023 Oximetry 95 % 09/27/2023 Encounters Encounter Location Date Provider Diagnosis [facility] [address] [place] [address] 09/27/2023 Francisca Du Pain in unspecified joint M25.50 ; Pain in right hand M79.641 ; Pain in left hand M79.642 ; Pain, joint, knee, right M25.561 and Right foot pain M79.671 Assessments Encounter Date Diagnosis (ICD Code) Assessment Notes Treatment Notes Treatment Clinical Notes Section Notes 09/27/2023 Pain in unspecified joint (ICD-10 - M25.50) 83 year old female with pain in the hands, the right foot and the right knee. Joint exam suggests osteoarthrit is. Labs and Xrays will be ordered to rule out other possibilitie s. Follow up virtual visit will be scheduled. 09/27/2023 Pain in right hand (ICD-10 - M79.641) 83 year old female with pain in the hands, the right foot and the right knee. Joint exam suggests osteoarthrit is. Labs and Xrays will be ordered to rule out other possibilitie s. Follow up virtual visit will be scheduled. 09/27/2023 Pain in left hand (ICD-10 - M79.642) 83 year old female with pain in the hands, the right foot and the right knee. Joint exam suggests osteoarthrit is. Labs and Xrays will be ordered to rule out other possibilitie s. Follow up virtual visit will be scheduled. 09/27/2023 Pain, joint, knee, right (ICD-10 - M25.561) 83 year old female with pain in the hands, the right foot and the right knee. Joint exam suggests osteoarthrit is. Labs and Xrays will be ordered to rule out other possibilitie s. Follow up virtual visit will be scheduled. 09/27/2023 Right foot pain (ICD-10 - M79.671) 83 year old female with pain in the hands, the right foot and the right knee. Joint exam suggests osteoarthrit is. Labs and Xrays will be ordered to rule out other possibilitie s. Follow up virtual visit will be scheduled. Plan Of Treatment Pending Test Test Name Order Date X ray : Foot, right 09/27/2023 X ray : Hands, bilateral 09/27/2023 X ray : Knee, right 2 views 09/27/2023 Next Appt Details Follow Up: 2 Weeks, Reason: Provider Name:Francisca Bonner, 04/13 01:30:00 PM, [address], [address], [place], [address], Progress Notes * Pablo CONNOROB: 2 (83 yo F)Acc No.[id number]:09/27/2023 Progress Notes Patient:Francine MORROW Provider:?FRANCISCA BONNER MD :1940???Age:83 Y???Sex:Female D ate:09/27/2023 Address:[address] [place], [place] [id number] Pcp:Luisa Mitchell, DO Subjective: * Chief Complaints: * ???Joint painreferred by Dr. Luisa Mitchell, [address] [facility] [address] , [address], [place] [address], tel [phone], fax [phone] * HPI: ???joint pain:?Hands have been aching on and off for 6 months. The pain is mild. The fingers have changed shape. She has noticed some swelling. Feet? and knees bother her too. She has noticed some swelling in the right knee. Am stiffness: a few minutes. She has been taking mobic 7.5mg/day for years. She does not know if it has helped with joint pain. 05/2023, Cr 0.81, GFR 73, AST/ALT normal, HCV (-). * ROS:?General / Constitutional:?Patient denies?fever.?Ophthalmologic:?Patient complains of?hx of dry eyes.?ENT:?Patient denies?dry mouth, oral ulcers.?Endocrine:?Patient denies?heat intolerance.?Respiratory:?Patient denies?cough, shortness of breath.?Cardiovascular:?Patient denies?chest pain.?Gastrointestinal:?Patient denies?abdominal pain, blood in stool, diarrhea.?Hematology:?Patient complains of?easy bruising.?Musculoskeletal:?Patient complains of?see HPI.?Skin:?Patient denies?rash, hair loss, photosensitivity, Raynaud's.?Neurologic:?Patient complains of?tingling (toes).?Psychiatric:?Patient complains of?anxiety.? * Medical History:? * Surgical History:?pace maker * Hospitalization/Major Diagno stic Procedure:? * Family History:? lung cancer, CAD, renal failure. * Social History:?Tobacco Use:?Tobacco Control (Standard)?Tobacco use:?Former smoker,?How long has it been since you last smoked??Greater than 10 years.?Drug/Alcohol:?Do you drink alcohol?: Rarely. ???Household:?Household?Marital status:?,?Number of children in household:?0.?Miscellaneous:?Exercise: [employer] daily. * Medications:?TakingPradaxa 1 50 MG Capsule 1 capsule Orally Twice a day Atorvastatin Calcium 20 MG Tablet 1 tablet Orally Once a day Meloxicam 7.5 MG Tablet 1 tablet Orally Once a day Metoprolol Succinate ER 25 MG Tablet Extended Release 24 Hour 1 tablet Orally Once a day Calcium 500 B Complex - Capsule as directed Orally Silverton 3-6-9 - Capsule as directed Orally dilTIAZem [...] Complex - Capsule as directed Orally Taking Silverton 3-6-9 - Capsule as directed Orally Taking dilTIAZem HCl ER 240 MG Tablet Extended Release 24 Hour 1 tablet Orally Once a day Taking Eye Health - Capsule as directed Orally Medication List reviewed and reconciled with the patient * Allergies:?N.K.D.A.no[Allerg ies Verified] Objective: * Vitals:?BP:130/90mm Hg, HR:8 8/min, Temp:97.9F, Oxygen sat %:95%, Wt:114.0lbs, Ht:62in, BMI:20.85Index. * Examination: ???General Examination: ?General appearance:?alert, well-nourished and in no acute distress?.?Head:?normocephalic, atraumatic?.?Eyes:?normal.?Ears:?normal?.?Neck / thyroid:?neck is supple, with full range of motion.?Lymph nodes:?no cervical lymphadenopathy.?Skin:?skin is warm and dry, with no rashes?.?Heart:?regular rate and rhythm.?Lungs:?clear to auscultation bilaterally.?Abdomen:?soft, nontender.?Psychiatry: ?Affect / mood:?appropriate.?Rheumatology: ???JOINT EXAM: +bilateral Lilli's nodes and mild Heberden's nodes, right 3rd PIP tender with a cystic lesion, unable to make tight fist with right hand, right knee tender with mild swelling, +pain with flexion, right 1st MTP tender. ???Neurology: ???nonfocal. Assessment: * Assessment: 1.?Pain in unspecified joint - M25.50 (Primary)???2.?Pain in right hand - M79.641???3.?Pain in left hand - M79.642???4.?Pain, joint, knee, right - M25.561???5.?Right foot pain - M79.671??? 83 year old female with pain in the hands, the right foot and the right knee. Joint exam suggests osteoarthritis. Labs and Xrays will be ordered to rule out other possibilities. Follow up virtual visit will be scheduled. Plan: * Treatment: ? Value Reference Range ?Albumin 4.5 3.5-5.0 - g/dL * ?Alkaline Phosphatase 51 34 -104 - units/L * ?ALT (SGPT) 16 9-43 - units /L * ?Anion Gap 6 4-13 - mmol/L * ?AST (SGOT) 26 13-39 - unit s/L * ?Calcium 9.9 8.3-10.5 - mg/d L * ?Chloride 102 98-107 - mmol/ L * ?CO2 30 21-31 - mmol/L * ?Creatinine 0.93 0.60-1.30 - mg/dL * ?eGFRcr (CKD-EPI 2020) 62 > =60 - mL/min/1.73 m2 * ?Glucose 97 70-100 - mg/dL * ?Potassium 4.5 3.5-5.1 - mmo l/L * ?Protein 6.7 6.4-8.3 - g/dL * ?Sodium 138 133-146 - mmol/ L * ?Total Bilirubin 0.5 0.2-1.2 - mg/dL * ?Urea Nitrogen 43 H 7-25 - mg /dL * This lab was reviewed by Herlinda Bonner on 09/29/2023 at 16:20 PM CDT ?LAB: SEDIMENTATION RATE, ESR* ? Value Reference Range ?ESR 2 (Based on docum ented legal sex) 0-30 - mm/Hour * This lab was reviewed by Herlinda Bonner on 09/29/2023 at 16:20 PM CDT ?LAB: CÉSAR SCREEN/REFLEX TITER/PATTERN* ? Value Reference Range ?CÉSRA Negative Negative - * This lab was reviewed by Herlinda Bonner on 09/29/2023 at 16:20 PM CDT ?LAB: G6PD, QUANTITATIVE, RBC* ? Value Reference Range ?RJRRISV-3-NSNUVBHPA DEHYDROGENASE 16.3 7.0-20.5 - U/g Hgb * This lab was reviewed by Herlinda Bonner on 09/29/2023 at 16:20 PM CDT ?LAB: RHEUMATOID FACTOR (RF), QUANTITATIVE* ? Value Reference Range ?Rheumatoid Factor <10 <=14 - IU/mL * ?Rheumatoid Factor Interp Negative Negative - * This lab was reviewed by Herlinda Bonner on 09/29/2023 at 16:20 PM CDT ?LAB: SSA/SSB ANTIBODY (SJOGREN'S)* ? Value Reference Range ?SSA (Ro) Ab <0.2 0.0-0.9 - A I * ?SSA (Ro) Ab Interp Negative Nega tive - * ?SSB (La) Ab <0.2 0.0-0.9 - A I * ?SSB (La) Ab Interp Negative Nega tive - * This lab was reviewed by Herlinda Bonner on 09/29/2023 at 16:20 PM CDT ?LAB: CBC W/DIFF* ? Value Reference Range ?WBC 7.3 3.5-10.5 - 10'3 /uL * ?RBC 4.38 (Based on docum ented legal sex) 3.80-5.20 - 10'6/uL * ?HGB 13.9 (Based on docum ented legal sex) 11.6-15.4 - g/dL * ?HCT 41.7 (Based on docum ented legal sex) 34.0-45.0 - % * ?MCV 95.2 80.0-99.0 - fL * ?MCH 31.7 27.0-34.0 - pg * ?MCHC 33.3 32.0-35.5 - g/d L * ?RDW 14.1 11.0-15.0 - % * ?PLT 191 150-400 - 10'3/ uL * ?MPV 11.9 8.8-12.1 - fL * ?NRBCs 0.0 0.0 - % * ?Absolute NRBC's 0.0 No refe rence range established - 10'3/uL * ?Neutrophils 55.5 34.0-73.0 - % * ?Lymphocytes 34.1 15.0-50.0 - % * ?Monocytes 8.6 1.0-15.0 - % * ?Basophils 0.1 0.0-2.0 - % * ?Eosinophils 1.6 0.0-8.0 - % * ?Immature Granulocytes 0.1 N o defined reference range - % * ?Absolute Basophils 0.0 0.0- 0.3 - 10'3/uL * ?Absolute Eosinophils 0.1 0. 0-0.6 - 10'3/uL * ?Absolute Immature Granulocytes 0.0 0.00-0.10 - 10'3/uL * ?Absolute Lymphocytes 2.5 1. 0-4.0 - 10'3/uL * ?Absolute Monocytes 0.6 0.2- 1.0 - 10'3/uL * ?Absolute Neutrophils 4.1 1. 5-8.0 - 10'3/uL * This lab was reviewed by Herlinda Bonner on 09/29/2023 at 16:20 PM CDT ?LAB: CYCLIC CITRULLINATED PEPTIDE (CCP) AB, IgG/IgA* ? Value Reference Range ?CCP Antibodies IgG/IgA 69 H 0-19 - units * This lab was reviewed by Herlinda Bonner on 09/29/2023 at 16:20 PM CDT ?LAB: CRP (C-REACTIVE PROTEIN)* ? Value Reference Range ?CRP <1.0 0.0-10.0 - mg/L * This lab was reviewed by Herlinda Bonner on 09/29/2023 at 16:20 PM CDT ?LAB: CK* ? Value Reference Range ?CK, Total 137 26-192 - unit s/L * This lab was reviewed by Herlinda Bonner on 09/29/2023 at 16:20 PM CDT ?LAB: URIC ACID* ? Value Reference Range ?Uric Acid 5.6 2.3-6.6 - mg/ dL * This lab was reviewed by Herlinda Bonner on 09/29/2023 at 16:20 PM CDT ?Imaging: X ray : Hands, bilateral * ?Imaging: X ray : Knee, right 2 views * ?Imaging: X ray : Foot, right* * Procedure Codes:? * Follow Up:?2 Weeks * Billing Information: * Visit Code:? 33576 Office Visit, New Pt., Level 4. * Procedure Codes:? * Sign off status: Completed true * Provider:?FRANCISCA BONNER MD Date:?09/27/2023 Generated for Orquidea rowland/Isac/Jemimasmitting on:?03/01/2024 05:48 AM MINK SLICER History and Physical Notes * HPI (History of Present Illness) Category Sub-Category Detail Notes Category Not es joint pain Hands have been aching on and off for 6 months. The pain is mild. The fingers have changed shape. She has noticed some swelling. Feet and knees bother her too. She has noticed some swelling in the right knee. Am stiffness: a few minutes. She has been taking mobic 7.5mg/day for years. She does not know if it has helped with joint pain. 05/2023, Cr 0.81, GFR 73, AST/ALT normal, HCV (-) Examination Category Sub-Category Detail Notes Category Not es Rheumatology JOINT EXAM: +bilateral Lilli's nodes and mild Heberden's nodes, right 3rd PIP tender with a cystic lesion, unable to make tight fist with right hand, right knee tender with mild swelling, +pain with flexion, right 1st MTP tender Neurology nonfocal Psychiatry Affect / mood: appropriate General Examination General appearance: alert, w ell-nourished and in no acute distress Head: normocephalic, atrau matic Eyes: normal Ears: normal Neck / thyroid: neck is supple, with full range of motion Heart: regular rate and rhy thm Lungs: clear to auscultatio n bilaterally Abdomen: soft, nontender Skin: skin is warm and dry , with no rashes Lymph nodes: no cervical lymphade nopathy
--- OUTSIDE RECORDS SUMMARY | 2024-03-01 05:49 | XMS_ITS | Encounter Summary ---
Author Organization [facility] Healthcare Address [address] [place] [address] Care Team Providers Care Director Of Infection Control Name Role Phone Angie Riddle MD Unavailable [phone] Luisa Mitchell DO Primary Care Provider [phone] Reason for Referral * Cardiology (Routine) - Authorized Specialty Diagnoses / Procedures Referred By Contac t Referred To Contact Diagnoses SSS (sick sinus syndrome) (CMS/HCC) (HCC) Procedures DEVICE CHECK - IN OFFICE Yoni Matamoros MD [address], [place] [address] Phone: tel: fax: Referral ID Status Reason Start Date Expiration Date V isits Requested Visits Authorized [id number] Authorized 11/15/2023 12/14/2024 1 1 * Cardiology (Routine) - Authorized Specialty Diagnoses / Procedures Referred By Contac t Referred To Contact Diagnoses SSS (sick sinus syndrome) (CMS/HCC) (HCC) Procedures DEVICE CHECK - IN OFFICE Yoni Matamoros MD [address], [place] [address] Phone: tel: fax: Referral ID Status Reason Start Date Expiration Date V isits Requested Visits Authorized [id number] Authorized 11/15/2023 12/14/2024 1 1 * Cardiology (Routine) - Authorized Specialty Diagnoses / Procedures Referred By Contac t Referred To Contact Diagnoses SSS (sick sinus syndrome) (CMS/HCC) (HCC) Procedures DEVICE CHECK - REMOTE Yoni Matamoros MD [address] [facility] [address] [id number] Phone: tel: fax: Referral ID Status Reason Start Date Expiration Date V isits Requested Visits Authorized [id number] Authorized 11/15/2023 05/14/2025 1 1 * Cardiology (Routine) - Authorized Specialty Diagnoses / Procedures Referred By Contac t Referred To Contact Diagnoses SSS (sick sinus syndrome) (CMS/HCC) (HCC) Procedures DEVICE CHECK - REMOTE Yoni Matamoros MD [address] [facility] [address] [address] Phone: tel: fax: Referral ID Status Reason Start Date Expiration Date V isits Requested Visits Authorized [id number] Authorized 11/15/2023 05/14/2025 1 1 * Cardiology (Routine) - Authorized Specialty Diagnoses / Procedures Referred By Contac t Referred To Contact Diagnoses SSS (sick sinus syndrome) (CMS/HCC) ([facility]) Procedures DEVICE CHECK - REMOTE Yoni Matamoros MD [address] [employer] [facility] [address] [address] Phone: tel: fax: Referral ID Status Reason Start Date Expiration Date V isits Requested Visits Authorized [id number] Authorized 11/15/2023 05/14/2025 1 1 * Cardiology (Routine) - Authorized Specialty Diagnoses / Procedures Referred By Contac t Referred To Contact Diagnoses SSS (sick sinus syndrome) (CMS/HCC) (HCC) Procedures DEVICE CHECK - REMOTE Yoni Matamoros MD [address] [facility] [address] [place] [address] Phone: tel: fax: Referral ID Status Reason Start Date Expiration Date V isits Requested Visits Authorized [id number] Authorized 11/15/2023 05/14/2025 1 1 * Cardiology (Routine) - Authorized Specialty Diagnoses / Procedures Referred By Contac t Referred To Contact Diagnoses SSS (sick sinus syndrome) (CMS/HCC) (HCC) Procedures DEVICE CHECK - REMOTE Yoni Matamoros MD [address] [facility] [address] [address] Phone: tel: fax: Referral ID Status Reason Start Date Expiration Date V isits Requested Visits Authorized [id number] Authorized 11/15/2023 05/14/2025 1 1 Encounter Details Date Type Department Care Team (Late st Contact Info) Description 11/15/2023 Orders Only [facility] Medical Group Cardiology [address] [facility] [address] [place] [id number] Yoni Matamoros MD [address] [facility] [address] [place] [address] SSS (sick sinus syndrome) (CMS/HCC) (HCC) (Primary Dx) Social History Tobacco Use Types Packs/Day Years [...] on file Legal Sex Female 9:31 AM [employer] Gender Identity Not on file Sexual Orientation Not on file documented as of this encounter Plan of Treatment Scheduled Orders Name Type Priority Associated Diagnoses Orde r Schedule DEVICE CHECK - REMOTE Cardiac Services Routine SSS (sick sinus syndrome) ([facility]/HCC) ([facility]) 1 Occurrences starting 11/15/2023 until 05/14/2025 DEVICE CHECK - REMOTE Cardiac Services Routine SSS (sick sinus syndrome) ([facility]) ([facility]) 1 Occurrences starting 11/15/2023 until 05/14/2025 DEVICE CHECK - REMOTE Cardiac Services Routine SSS (sick sinus syndrome) ([facility]) ([facility]) 1 Occurrences starting 11/15/2023 until 05/14/2025 DEVICE CHECK - REMOTE Cardiac Services Routine SSS (sick sinus syndrome) ([facility]) ([facility]) 1 Occurrences starting 11/15/2023 until 05/14/2025 DEVICE CHECK - REMOTE Cardiac Services Routine SSS (sick sinus syndrome) ([facility]) ([facility]) 1 Occurrences starting 11/15/2023 until 05/14/2025 DEVICE CHECK - IN OFFICE Cardiac Services Routine SSS (sick sinus syndrome) ([facility]/HCC) ([facility]) Expected: 11/15/2023, Expires: 05/14/2025 DEVICE CHECK - IN OFFICE Cardiac Services Routine SSS (sick sinus syndrome) ([facility]/HCC) ([facility]) Expected: 11/15/2023, Expires: 05/14/2025 documented as of this encounter Visit Diagnoses Diagnosis SSS (sick sinus syndrome) ([facility]/HCC) ([facility])- Primary Sinoatrial node dysfunction documented in this encounter Care Teams Director Of Infection Control Relationship Specialty Start Date End Date Luisa Mitchell DO [address] [place] [id number] PCP - General Internal Medicine 08/11/22 Angie Riddle MD [address] [place] [address] Gynecology 08/19/16 documented as of this encounter
--- OUTSIDE RECORDS SUMMARY | 2024-03-01 05:50 | XMS_ITS | Encounter Summary ---
Author Organization [facility] Address [address] [place] [id number] Care Team Providers Care Bottom Bleacher Name Role Phone Angie Riddle MD Unavailable [phone] Hardy Morgan MD PhD Primary Care Provider + Reason for Referral * Cardiology (Routine) - Closed Specialty Diagnoses / Procedures Referred By Contac t Referred To Contact Diagnoses SSS (sick sinus syndrome) (CMS/HCC) (HCC) Procedures DEVICE CHECK - REMOTE Yoni Matamoros MD [address], [place] [address] Phone: tel: fax: [facility] Referral ID Status Reason Start Date Expiration Date Visits Re quested Visits Authorized [id number] Closed 06/26/2021 12/26/2022 1 1 * Cardiology (Routine) - Closed Specialty Diagnoses / Procedures Referred By Contac t Referred To Contact Diagnoses SSS (sick sinus syndrome) (CMS/HCC) (HCC) Procedures DEVICE CHECK - REMOTE Yoni Matamoros MD [address], [place] [address] Phone: tel: fax: [facility] Referral ID Status Reason Start Date Expiration Date Visits Re quested Visits Authorized [id number] Closed 06/26/2021 12/26/2022 1 1 * Cardiology (Routine) - Closed Specialty Diagnoses / Procedures Referred By Contac t Referred To Contact Diagnoses SSS (sick sinus syndrome) (CMS/HCC) (HCC) Procedures DEVICE CHECK - REMOTE Yoni Matamoros MD [address] [place] [id number] Phone: tel: fax: [facility] Referral ID Status Reason Start Date Expiration Date Visits Re quested Visits Authorized [id number] Closed 06/26/2021 12/26/2022 1 1 * Cardiology (Routine) - Closed Specialty Diagnoses / Procedures Referred By Contac t Referred To Contact Diagnoses SSS (sick sinus syndrome) (CMS/HCC) (HCC) Procedures DEVICE CHECK - REMOTE Yoni Matamoros MD [address] [place] [address] Phone: tel: fax: [facility] Referral ID Status Reason Start Date Expiration Date Visits Re quested Visits Authorized [id number] Closed 06/26/2021 12/26/2022 1 1 * Cardiology (Routine) - Closed Specialty Diagnoses / Procedures Referred By Contac t Referred To Contact Diagnoses SSS (sick sinus syndrome) (CMS/HCC) (HCC) Procedures DEVICE CHECK - REMOTE Yoni Matamoros MD [address] [place] [address] Phone: tel: fax: [facility] Referral ID Status Reason Start Date Expiration Date Visits Re quested Visits Authorized [id number] Closed 06/26/2021 12/26/2022 1 1 Encounter Details Date Type Department Care Team (Late st Contact Info) Description 06/26/2021 Orders Only [facility] Cardiology [address] [facility] [address] [place] [address] Yoni Matamoros MD [address] [place] [address] SSS (sick sinus syndrome) (CMS/HCC) (HCC) (Primary Dx) Social History Tobacco Use Types Packs/Day Years Used Date Smoking Tobacco: Former Cigarettes Q uit: 1985 Smokeless Tobacco: Never Alcohol Use Standard Drinks/Week Comments No 0 (1 standard drink = 0.6 oz pur e alcohol) Comments No Sex and Gender Information Value Date Recorded Sex Assigned at Not on file Legal Sex Female 9:31 AM LICENSED SALES ASSISTANT Gender Identity Not on file Sexual Orientation Not on file documented as of this encounter Plan of Treatment Not on file documented as of this encounter Results * DEVICE CHECK - REMOTE (01/25/2023 8:46 AM LICENSED SALES ASSISTANT) Anatomical Region Laterality Modality Other Narrative 02/02/2023 10:20 AM LICENSED SALES ASSISTANT Table formatting from the original result was not included. Images from the original result were not included. PM CHECK (REMOTE) Patient ID: Francine Erwin is a 82 y.o. female This patient received a Medtronic Pacemaker. ??They had a routine remote transmission on 01/25/2023. Device implant indications: ??Sick sinus syndrome, AFib ?? Interrogation of the patient's device demonstrates the following: Presenting EGM: ??AF with RV sense @ 138 bpm Original Device Settings Right Atrium Right Ventricle Sensitivity (mV) 0.50 mV 2.80 mV Pacing Outputs 2.25 V @ 0.40 ms 1.50 V @ 0.40 ms Testing Measurements Right Atrium Right Ventricle Sensitivity (mV) 0.50 mV 2.80 mV Impedence (Ohms) 655 ohms 516 ohms Pace Threshold 1.125 V @ 0.40 ms 0.75 V @ 0.40 ms Pacing % 89 % 0.6 % Battery Status: ??22 months ??to SARMAD Episodes last 90 days/Comments: AF [place] 16.9 %, longest duration > 48 hours while patient is in afib high V rates are noted NORMAL DEVICE FUNCTION PROGRAMMED MEDICATIONS: Anti-coagulant(s): Pradaxa 150mg ??BID Anti-arrhythmic(s): Cardizem 180mg, Toprol XL 25 mg PLAN: 1) Medtronic Pacemaker evaluation 2) Medtronic remote transmission scheduled in 3 months. 3) Programming appropriate for device measurements Zhanna Enriquez RN Yoni Matamoros MD [facility] PRO CEDURES Final Result * DEVICE CHECK - REMOTE (10/26/2022 7:36 AM CDT) Anatomical Region Laterality Modality Other Narrative 10/27/2022 5:44 PM CDT Table formatting from the original result was not included. PM CHECK (REMOTE) Patient ID: Francine Erwin is a 82 y.o. female This patient received a Medtronic Pacemaker. ??They had a routine remote transmission on 10/26/2022. Device implant indications: ??Sick sinus syndrome ?? Interrogation of the patient's device demonstrates the following: Presenting EGM: ??A paced V sense @ 70 bpm Original Device Settings Right Atrium Right Ventricle Sensitivity (mV) 0.35 mV 2.8 mV Pacing Outputs 2.25 V @ 0.4 ms 1.5 V @ 0.4 ms Testing Measurements Right Atrium Right Ventricle Sensitivity (mV) Paced mV 5.6-16 mV Impedence (Ohms) 626 ohms 576 ohms Pace Threshold 1.125 V @ 0.4 ms 0.75 V @ 0.4 ms Pacing % 94.5 % 0.8 % Battery Status: ??27 months to SARMAD Episodes last 90 days/Comments: AF [place] 7.9 %, there were multiple stored episodes classified as AT/AF with the longest duration of 11 hours and 31 minutes on 09/09/2022. ?? Ventricular rates are controlled. There were no new ventricular events noted on today's remote interrogation. NORMAL DEVICE FUNCTION PROGRAMMED MEDICATIONS: Anti-coagulant(s): ??Pradaxa 150 mg twice daily Anti-arrhythmic(s): ??Toprol-XL 25 mg daily, Cardizem LA 180 mg daily PLAN: 1) normal Medtronic Pacemaker evaluation 2) Medtronic remote transmission scheduled in 3 months. 3) Programming appropriate for device measurements Carol Yuan RN Yoni Matamoros MD [facility] PRO CEDURES Final Result * DEVICE CHECK - REMOTE (05/18/2022 9:04 AM CDT) Anatomical Region Laterality Modality Other Narrative 05/19/2022 8:01 AM CDT Table formatting from the original result was not included. PM CHECK (REMOTE) Patient ID: Francine Erwin is a 82 y.o. female This patient received a Medtronic Pacemaker. ??They had a routine remote transmission on 05/18/2022. Device implant indications: ??Sick sinus syndrome, AFib ?? Interrogation of the patient's device demonstrates the following: Presenting EGM: ??A flutter V sense @ 90-110 bpm Original Device Settings Right Atrium Right Ventricle Sensitivity (mV) 0.5 mV 2.8 mV Pacing Outputs 2.5 V @ 0.4 ms 1.5 V @ 0.4 ms Testing Measurements Right Atrium Right Ventricle Sensitivity (mV) Paced mV 5.6-16 mV Impedence (Ohms) 599 ohms 550 ohms Pace Threshold 1.25 V @ 0.4 ms 0.75 V @ 0.4 ms Pacing % 95.6 % 0.4 % Battery Status: ??32 months to SARMAD Episodes last 90 days/Comments: AF [place] 6.6 %, current episode currently in progress since 05/17/2022 at approximately 8:30 p.m. Ventricular rates ranging anywhere from the 90s to 110 bpm. There were no new ventricular events noted on today's remote interrogation. NORMAL DEVICE FUNCTION PROGRAMMED MEDICATIONS: Anti-coagulant(s): ??Pradaxa 150 mg twice daily Anti-arrhythmic(s): ??Toprol-XL 25 mg daily, Cardizem CD 180 mg daily PLAN: 1) normal Medtronic Pacemaker evaluation 2) Medtronic remote transmission scheduled in 3 months. 3) Programming appropriate for device measurements Carol Yuan RN Yoni Matamoros MD [facility] PRO CEDURES Final Result * DEVICE CHECK - REMOTE (02/16/2022 8:27 AM LICENSED SALES ASSISTANT) Anatomical Region Laterality Modality Other Narrative 02/16/2022 2:08 PM LICENSED SALES ASSISTANT Table formatting from the original result was not included. PM CHECK (REMOTE) Patient ID: Francine Erwin is a 81 y.o. female This patient received a Medtronic Pacemaker. ??They had a routine remote transmission on 02/16/2022. Device implant indications: ??Sick sinus syndrome, AFib ?? Interrogation of the patient's device demonstrates the following: Presenting EGM: ??AFib V sense @ 100-140s bpm Original Device Settings Right Atrium Right Ventricle Sensitivity (mV) 0.35 mV 4.0 mV Pacing Outputs 2.25 V @ 0.4 ms 1.5 V @ 0.4 ms Testing Measurements Right Atrium Right Ventricle Sensitivity (mV) Paced mV 5.6-16 mV Impedence (Ohms) 627 ohms 521 ohms Pace Threshold 1.125 V @ 0.4 ms 0.625 V @ 0.4 ms Pacing % 96 % 0.3 % Battery Status: ??2.2 years to SARMAD Episodes last 90 days/Comments: AF [place] 5.9 %, longest duration of 17 hours and 13 minutes on 12/19/2021. ??Most recent episode began on 02/16/22 at 2:26 a.m. and is currently in progress. There were no new ventricular events noted on today's remote interrogation. NORMAL DEVICE FUNCTION PROGRAMMED MEDICATIONS: Anti-coagulant(s): ??Pradaxa 150 mg twice daily Anti-arrhythmic(s): ??Toprol XL 25 mg daily, Cardizem LA 180 mg daily PLAN: 1) normal Medtronic Pacemaker evaluation 2) Medtronic remote transmission scheduled in 3 months. 3) Programming appropriate for device measurements Carol Yuan RN us Yoni Matamoros MD [facility] PRO CEDURES Final Result * DEVICE CHECK - REMOTE (11/17/2021 7:42 AM CDT) Anatomical Region Laterality Modality Other Narrative 11/18/2021 10:55 AM CDT Table formatting from the original result was not included. This patient received a Medtronic Pacemaker. ??They had a routine Medtronic remote transmission on 11/17/2021. Device implant indications: ??Sick sinus syndrome, AFib ?? Interrogation of the patient's device demonstrates the following: Presenting EGM: ??A paced V sense @ 73 bpm Lead Measurements Right Atrium Right Ventricle Sensitivity (mV) Paced mV 5.6-16 mV Impedence (Ohms) 569 ohms 509 ohms Pace Threshold 1.375 V @ 0.4 ms 0.625 V @ 0.4 ms Pacing % 97.6 % 0.3 % Battery Status: ??2 years 9 months years to SARMAD Episodes last 90 days/Comments: AF [place] 3.8 %, longest duration 14 hours and 10 minutes on 09/19/2021. ?? Ventricular rates controlled while in atrial fibrillation. There were no new ventricular events noted on today's remote interrogation. NORMAL DEVICE FUNCTION PROGRAMMED Anti-coagulant(s): ??Pradaxa 150 mg twice daily Anti-arrhythmic(s): ??Toprol XL 25 mg daily, Cardizem CD 180 mg daily Plan: 1) normal Medtronic Pacemaker evaluation 2) Medtronic remote transmission scheduled in 3 months. Skyler Yuan R.N. Yoni Matamoros MD [facility] PRO CEDURES Final Result documented in this encounter Visit Diagnoses Diagnosis SSS (sick sinus syndrome) (CMS/HCC) (HCC)- Primary Sinoatrial node dysfunction SSS (sick sinus syndrome) (CMS/HCC) (HCC) Sinoatrial node dysfunction Pacemaker Cardiac pacemaker in situ SSS (sick sinus syndrome) (CMS/HCC) (HCC) Sinoatrial node dysfunction Pacemaker Cardiac pacemaker in situ SSS (sick sinus syndrome) (CMS/HCC) (HCC) Sinoatrial node dysfunction Pacemaker Cardiac pacemaker in situ Pacemaker- Primary Cardiac pacemaker in situ SSS (sick sinus syndrome) (CMS/HCC) (HCC) Sinoatrial node dysfunction Pacemaker- Primary Cardiac pacemaker in situ SSS (sick sinus syndrome) (CMS/HCC) (HCC) Sinoatrial node dysfunction documented in this encounter Care Teams Bottom Bleacher Relationship Specialty Start Date End Date Hardy Morgan MD PhD [address] [address] [place] [address] PCP - General 12/02/16 08/10/22 Angie Riddle MD [address] [place] [address] Gynecology 08/19/16 documented as of this encounter
--- OUTSIDE RECORDS SUMMARY | 2024-03-01 05:50 | XMS_ITS | Encounter Summary ---
Author Organization [facility] Address [address] [place] [address] Care Team Providers Care Ecologist Name Role Phone Angie Riddle MD Unavailable [phone] Luisa Mitchell DO Primary Care Provider [phone] Reason for Visit * Cardiology (Routine) - Closed Specialty Diagnoses / Procedures Referred By Viridiana oconnor Referred To Contact Diagnoses SSS (sick sinus syndrome) (CMS/HCC) ([facility]) Procedures DEVICE [place] [address] [place] [address] [address], [place] [address] Phone: tel: fax: [facility] Referral ID Status Reason Start Date Expiration Date Visits Re quested Visits Authorized [id number] Closed 06/26/2021 12/26/2022 1 1 Encounter Details Date Type Department Care Team (Latest Contact Info) Description 10/26/2022 8:30 AM CDT Ancillary Procedure [facility] Medical [facility] Cardiology 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 Gender Identity Not on file Sexual Orientation Not on file documented as of this encounter Plan of Treatment Not on file documented as of this encounter Procedures Procedure Name Priority Date/Time Associated Diagnosis Comments DEVICE CHECK - REMOTE Routine 10/26/2022 7:36 AM CDT SSS (sick sinus syndrome) (CMS/HCC) (HCC) documented in this encounter Results * DEVICE CHECK - REMOTE (10/26/2022 7:36 [...] to SARMAD Episodes last 90 days/Comments: AF [place] 7.9 %, there were multiple stored episodes [...] 3) Programming appropriate for device measurements Carol Delanty, RN Yoni Matamoros MD [facility] PRO CEDURES Final Result documented in this encounter Visit Diagnoses Diagnosis Pacemaker- Primary Cardiac pacemaker in situ SSS (sick sinus syndrome) (CMS/HCC) ([facility]) Sinoatrial node dysfunction documented in this encounter Care Teams Ecologist Relationship Specialty Start Date End Date Luisa Mitchell DO [address] [place], [place] [id number] PCP - General Internal Medicine 08/11/22 Angie Riddle MD [address] [place] [address] Gynecology 08/19/16 documented as of this encounter
--- OUTSIDE RECORDS SUMMARY | 2024-03-01 05:50 | XMS_ITS | Encounter Summary ---
Author Organization [facility] Address [address] [place] [address] Care Team Providers Care Duty Officer Name Role Phone Angie Riddle MD Unavailable [phone] Luisa Mitchell DO Primary Care Provider [phone] Encounter Details Date Type Department Care Team (Late st Contact Info) Description 02/02/2023 Telephone [facility] Cardiology [address] [place] [address] Yoni Matamoros MD [address] [facility] [address] [place] [address] Social History Tobacco Use Types Packs/Day Years Used Date Smoking Tobacco: Former Cigarettes Q uit: 1985 Smokeless Tobacco: Never Alcohol Use Standard Drinks/Week Comments No 0 (1 standard drink = 0.6 oz pur e alcohol) Comments No Sex and Gender Information Value Date Recorded Sex Assigned at Not on file Legal Sex Female 9:31 AM CANDY DECORATOR Gender Identity Not on file Sexual Orientation Not on file documented as of this encounter Ordered Prescriptions Prescription Sig Dispense Quantity Refills Last Filled Start Date End Date metoprolol XL (TOPROL-XL) 50 mg extended release tablet Take 1 tablet (50 mg total) by mouth daily 90 tablet 1 02/02/2023 06/03/2023 documented in this encounter Miscellaneous Notes * Addendum Note - Shakira Matthews - 02/02/2023 10:52 AM CSTAddended by: SHAKIRA MATTHEWS on: 02/02/2023 10:52 AM Modules accepted: Orders Y DECORATOR * Telephone Encounter - Shakira Matthews - 02/02/2023 10:51 AM CANDY DECORATOR Was able to reach patient. Reviewed recommendations. Patient verbally understood. Sending in 50mg tabs to [facility] per request. Y DECORATOR * Telephone Encounter - Shakira Matthews - 02/02/2023 10:28 AM CANDY DECORATOR Lvm with patient to call office for recommendations. Y DECORATOR * Telephone Encounter - Yoni Matamoros MD - 02/02/2023 10:18 AM CANDY DECORATOR Please reach out to let her know that I was reviewing the results of her latest pacemaker interrogation. Pacemaker is functioning normally, however there was an incidental note of her heart rates being more elevated than previous when she is in atrial fibrillation which is about 1/5 of the time. I would recommend that she try increasing her metoprolol XL from 25 mg daily to 50 mg daily (she can take 2 x 25 mg tabs or can get a new script for 1 x 50 mg tabs) Will keep an eye on her heart rates at routine device checks every 3 months Y DECORATOR documented in this encounter Plan of Treatment Not on file documented as of this encounter Visit Diagnoses Not on filedocumented in this encounter Discontinued Medications Medication Sig Discontinue Reason Start Date End Da te metoprolol XL (TOPROL-XL) 25 mg extended release tabletIndications:Paroxys mal atrial fibrillation (CMS/HCC) (HCC) TAKE 1 TABLET BY MOUTH EVERY DAY Dose adjustment 08/21/2022 02/02/2023 documented as of this encounter Care Teams Duty Officer Relationship Specialty Start Date End Date Luisa Mitchell DO [address] [place], [place] [id number] PCP - General Internal Medicine 08/11/22 Angie Riddle MD [address] [place] [address] Gynecology 08/19/16 documented as of this encounter
--- OUTSIDE RECORDS SUMMARY | 2024-03-01 05:50 | XMS_ITS | Encounter Summary ---
Author Organization [facility] Healthcare Address [address] [place] [address] Care Team Providers Care Rug Setter [place] Name Role Phone Angie Riddle MD Unavailable [phone] Luisa Mitchell DO Primary Care Provider [phone] Reason for Referral * Diagnostic Imaging (Routine) - Closed Specialty Diagnoses / Procedures Referred By Viridiana oconnor Referred To Contact Diagnoses Mass of upper outer quadrant of right breast Procedures Diagnostic Mammogram Right W Qi High NP Phone: tel: fax: [address] [address] Referral ID Status Reason Start Date Expiration Date Visits Re quested Visits Authorized [id number] Closed 12/08/2022 01/07/2024 1 1 ATABLE BUILDINGS LAMINATOR Reason for Visit * Diagnostic Imaging (Routine) - Closed Specialty Diagnoses / Procedures Referred By Viridiana oconnor Referred To Contact Diagnoses Mass of upper outer quadrant of right breast Procedures Diagnostic Mammogram Right W Qi High NP Phone: tel: fax: [address] [phone] Referral ID Status Reason Start Date Expiration Date Visits Re quested Visits Authorized [id number] Closed 12/08/2022 01/07/2024 1 1 Encounter Details Date Type Department Care Team (Latest Contact Info) Description 01/04/2023 12:30 PM INFLATABLE BUILDINGS LAMINATOR - 01/04/2023 11:59 PM INFLATABLE BUILDINGS LAMINATOR Hospital Encounter [facility] [address] [place] [address] Mass of upper outer quadrant of right breast Discharge Disposition: Discharge to home or self care Social History Tobacco Use Types Packs/Day Years Used Date Smoking Tobacco: Former Cigarettes Q uit: 1985 Smokeless Tobacco: Never Alcohol Use Standard Drinks/Week Comments No 0 (1 standard drink = 0.6 oz pur e alcohol) Comments No Sex and Gender Information Value Date Recorded Sex Assigned at Not on file Legal Sex Female 9:31 AM INFLATABLE BUILDINGS LAMINATOR Gender Identity Not on file Sexual Orientation Not on file documented as of this encounter Medications at Time of Discharge atorvastatin (LIPITOR) 20 mg tablet Take 1 tablet (20 mg total) by mouth daily omega-3 fatty acids-vitamin E (FISH OIL) 1,000 mg capsule take 1 by Oral route 3 times every day 0 0 07/21/2013 VIT C/E/ZN/COPPR/LUTEI N/ZEAXAN (PRESERVISION AREDS 2 ORAL) Take by mouth Take 2 capsules daily ascorbic acid/collagen hydr (COLLAGEN PLUS VITAMIN C ORAL) Take 6 tablets by mouth daily 4 cholecalciferol (VITAMIN D-3) 5,000 unit tablet daily 02 4 cyanocobalamin (Vitamin B-12) 1,000 mcg tabletIndications: Prevention of Vitamin B12 Deficiency Take 5 tablets (5,000 mcg total) by mouth daily 4 dabigatran (Pradaxa) 150 mg capsule Take 1 capsule (150 mg total) by mouth 2 (two) times a day 180 capsule 3 03/31/2022 4 diltiazem LA (CARDIZEM LA) 180 mg 24 hr tablet take 1 tablet by oral route every day 0 0 07/21/2013 4 meloxicam (MOBIC) 15 mg tablet take 1 tablet by oral route every day as needed 0 0 07/21/2013 4 metoprolol XL (TOPROL-XL) 25 mg extended release tabletIndications: Paroxysmal atrial fibrillation (CMS/HCC) (HCC) TAKE 1 TABLET BY MOUTH EVERY DAY 90 tablet 3 08/21/2022 3 multivitamin tablet tablet take 1 by Oral route once 0 0 07/21/2013 4 polycarbophil (FIBERCON) 625 mg tablet Take 1 tablet (625 mg total) by mouth daily ONE IN AM AND TWO AT PM 4 documented as of this encounter Discharge Disposition Disposition Code Departure Means Destination Discharge to home or self care documented in this encounter Plan of Treatment Not on file documented as of this encounter Procedures Procedure Name Priority Date/Time Associated Diagnosis Comments DIAGNOSTIC MAMMOGRAM RIGHT W [place] Schedule Routine, Read Routine (OP Routine) 01/04/2023 1:47 PM INFLATABLE BUILDINGS LAMINATOR Mass of upper outer quadrant of right breast documented in this encounter Results * Diagnostic Mammogram Right W [place] (01/04/2023 1:47 PM INFLATABLE BUILDINGS LAMINATOR) Anatomical Region Laterality Modality Breast Right Mammography 01/04/2023 2:29 PM INFLATABLE BUILDINGS LAMINATOR Impressions 01/04/2023 2:30 PM INFLATABLE BUILDINGS LAMINATOR No mammographic or sonographic evidence of malignancy in the RIGHT breast. OVERALL FINAL ASSESSMENT: BI-RADS Category 1: Negative. RECOMMENDATION: Annual screening mammography is recommended. Dictated by: Salvador Vaughn M.D. The radiology attending physician has personally reviewed this study, and had reviewed and/or edited this written report and agrees with it. Electronically signed by: Angie Richards M.D. Narrative 01/04/2023 2:30 PM INFLATABLE BUILDINGS LAMINATOR EXAMINATION: RIGHT UNILATERAL DIGITAL DIAGNOSTIC MAMMOGRAM AND DIGITAL BREAST TOMOSYNTHESIS; RIGHT BREAST SONOGRAM HISTORY: 82-year-old woman with screening detected questioned asymmetry in the RIGHT breast. ??Patient presents for diagnostic RIGHT mammogram and ultrasound. COMPARISON: Prior mammograms dating back to 08/19/2016, most recently 11/24/2022. TECHNIQUE: ?? Full field digital mammographic views of the RIGHT breast were performed, including computer aided detection (CAD) and digital breast tomosynthesis (DBT). ??Directed ultrasound evaluation of the RIGHT breast was performed. BREAST PARENCHYMAL COMPOSITION: The breasts are extremely dense, which lowers the sensitivity of mammography. MAMMOGRAM FINDINGS: No suspicious mass, calcification, asymmetry, or architectural distortion in the RIGHT breast to suggest malignancy. ??The questioned asymmetry in the RIGHT breast is not appreciated on this exam. SONOGRAM FINDINGS: Targeted sonographic examination of the RIGHT breast at approximately 11:00, 3 cm from the nipple, in the area of the previously described asymmetry was performed. ??No focal mass is appreciated. ??The reported isoechoic mass described on outside ultrasound report is considered to represent patient's normal dense breast tissue. ?? Procedure Note Angie Richards MD - 01/04/2023 EXAMINATION: RIGHT UNILATERAL DIGITAL DIAGNOSTIC MAMMOGRAM AND DIGITAL BREAST TOMOSYNTHESIS; RIGHT BREAST SONOGRAM HISTORY: 82-year-old woman with screening detected questioned asymmetry in the RIGHT breast. Patient presents for diagnostic RIGHT mammogram and ultrasound. COMPARISON: Prior mammograms dating back to 08/19/2016, most recently 11/24/2022. TECHNIQUE: Full field digital mammographic views of the RIGHT breast were performed, including computer aided detection (CAD) and digital breast tomosynthesis (DBT). Directed ultrasound evaluation of the RIGHT breast was performed. BREAST PARENCHYMAL COMPOSITION: The breasts are extremely dense, which lowers the sensitivity of mammography. MAMMOGRAM FINDINGS: No suspicious mass, calcification, asymmetry, or architectural distortion in the RIGHT breast to suggest malignancy. The questioned asymmetry in the RIGHT breast is not appreciated on this exam. SONOGRAM FINDINGS: Targeted sonographic examination of the RIGHT breast at approximately 11:00, 3 cm from the nipple, in the area of the previously described asymmetry was performed. No focal mass is appreciated. The reported isoechoic mass described on outside ultrasound report is considered to represent patient's normal dense breast tissue. IMPRESSION: No mammographic or sonographic evidence of malignancy in the RIGHT breast. OVERALL FINAL ASSESSMENT: BI-RADS Category 1: Negative. RECOMMENDATION: Annual screening mammography is recommended. Dictated by: Salvador Vaughn M.D. The radiology attending physician has personally reviewed this study, and had reviewed and/or edited this written report and agrees with it. Electronically signed by: Angie Richards M.D. Qi Alcala NP IMG MAMMO PROCEDURES Final Result documented in this encounter Visit Diagnoses Diagnosis Mass of upper outer quadrant of right breast documented in this encounter Care Teams Rug Setter [place] Relationship Specialty Start Date End Date Luisa Mitchell DO [address] [place] [address] PCP - General Internal Medicine 08/11/22 Angie Riddle MD [address] [place] [address] Gynecology 08/19/16 documented as of this encounter
--- OUTSIDE RECORDS SUMMARY | 2024-03-01 05:50 | XMS_ITS | Encounter Summary ---
Author Organization [facility] Medical [facility] Address [address] [place] [address] Care Team Providers Care Range Aid Name Role Phone Angie Riddle MD Unavailable [phone] Hardy Morgan MD PhD Primary Care Provider + Reason for Visit * Cardiology (Routine) - Closed Specialty Diagnoses / Procedures Referred By Viridiana oconnor Referred To Contact Diagnoses Pacemaker Procedures DEVICE CHECK - IN OFFICE Yoni Matamoros MD [address] [place] [address] Phone: tel: fax: [facility] Referral ID Status Reason Start Date Expiration Date Visits Re quested Visits Authorized [id number] Closed 08/12/2020 09/11/2021 1 1 Encounter Details Date Type Department Care Team (Latest Contact Info) Description 08/12/2021 12:30 PM CDT Ancillary Procedure [facility] Cardiology [address], [place] [address] Pacemaker; Paroxysmal atrial fibrillation (CMS/HCC) (HCC) Social History Tobacco Use Types Packs/Day Years Used Date Smoking Tobacco: Former Cigarettes Q uit: 1985 Smokeless Tobacco: Never Alcohol Use Standard Drinks/Week Comments No 0 (1 standard drink = 0.6 oz pur e alcohol) Comments No Sex and Gender Information Value Date Recorded Sex Assigned at Not on file Legal Sex Female 9:31 AM HEAVY EQUIPMENT SERVICE TECHNICIAN Gender Identity Not on file Sexual Orientation Not on file documented as of this encounter Plan of Treatment Not on file documented as of this encounter Procedures Procedure Name Priority Date/Time Associated Diagnosis Comments DEVICE CHECK - IN OFFICE Routine 08/12/2021 12:48 PM CDT Pacemaker documented in this encounter Results * DEVICE CHECK - IN OFFICE (08/12/2021 12:48 PM CDT) Anatomical Region Laterality Modality Other Narrative 08/12/2021 3:41 PM CDT This patient received a Medtronic Pacemaker. ??They had a routine Medtronic in office device interrogation on 08/12/2021. Device implant indications: ??Sick sinus syndrome, AFib ?? Interrogation of the patient's device demonstrates the following: Presenting EGM: ??A paced V sense @ 62 bpm Lead Measurements Right Atrium Right Ventricle Sensitivity (mV) paced mV 5.6-16 mV Impedence (Ohms) 583 ohms 536 ohms Pace Threshold 1.0 V @ 0.4 ms 0.75 V @ 0.4 ms Pacing % 96.7 % 0.3 % Battery Status: ??3.5 years to SARMAD Episodes last 90 days/Comments: AF [place] 4.8 %, longest duration of 12 hours and 32 minutes on August 03, 2021 max ventricular rate at 104 bpm. There were no new ventricular events noted on today's in office interrogation. NORMAL DEVICE FUNCTION PROGRAMMED Anti-coagulant(s): ??Pradaxa 150 mg twice daily Anti-arrhythmic(s): ??Toprol XL 25 mg daily, diltiazem 180 mg daily Plan: 1) normal Medtronic Pacemaker evaluation 2) Medtronic remote transmission scheduled in 3 months. Skyler Yuan R.N. with Deedee Enriquez R.N. us Yoni Matamoros MD [facility] PRO CEDURES Final Result documented in this encounter Visit Diagnoses Diagnosis Pacemaker Cardiac pacemaker in situ Paroxysmal atrial fibrillation (CMS/HCC) (HCC) Atrial fibrillation documented in this encounter Care Teams Range Aid Relationship Specialty Start Date End Date Hardy Morgan MD PhD [address] [facility] [facility] [address] [place] [address] PCP - General 12/02/16 08/10/22 Angie Riddle MD [address] [address] Gynecology 08/19/16 documented as of this encounter
--- OUTSIDE RECORDS SUMMARY | 2024-03-01 05:50 | XMS_ITS | Encounter Summary ---
Author Organization [facility] Address [address] [place] [address] Phone Care Team Providers Care Marketing Teacher Name Role Phone Angie Riddle MD Unavailable [phone] Luisa Mitchell DO Primary Care Provider [phone] Reason for Referral * Diagnostic Imaging (Routine) - Closed Specialty Diagnoses / Procedures Referred By Viridiana oconnor Referred To Contact Diagnoses Mass of upper outer quadrant of right breast Procedures Diagnostic Mammogram Right W Puneet Qi Alcala NP Phone: tel: fax: [address] [address] Referral ID Status Reason Start Date Expiration Date Visits Re quested Visits Authorized [id number] Closed 12/08/2022 01/07/2024 1 1 Reason for Visit * Reason Comments New Patient * Consultation (Routine) - Closed Specialty Diagnoses / Procedures Referred By Viridiana oconnor Referred To Contact Surgical Oncology Diagnoses Mass of upper outer quadrant of right breast Angie Riddle MD [address] [address] Phone: tel: fax: [facility] (All Locations) Referral ID Status Reason Start Date Expiration Date V isits Requested Visits Authorized [id number] Closed Specialty Services Required 11/26/2022 12/26/2023 1 1 Encounter Details Date Type Department Care Team (Late st Contact Info) Description 12/08/2022 10:00 AM CDT Office Visit [facility] Surgery [address] [place] [address] Qi Alcala NP [address] [facility] [address] [place] [address] Mass of upper outer quadrant of right breast (Primary Dx) Social History Tobacco Use Types Packs/Day Years Used Date Smoking Tobacco: Former Cigarettes Q uit: 1985 Smokeless Tobacco: Never Alcohol Use Standard Drinks/Week Comments No 0 (1 standard drink = 0.6 oz pur e alcohol) Comments No Sex and Gender Information Value Date Recorded Sex Assigned at Not on file Legal Sex Female 9:31 AM DIRECTOR OF DONOR RELATIONS Gender Identity Not on file Sexual Orientation Not on file documented as of this encounter Last Filed Vital Signs Vital Sign Reading Time Taken Comments Blood Pressure 149/89 12/08/2022 9:43 AM CDT Pulse 90 12/08/2022 9:43 AM CDT Temperature 36.3 ??C (97.4 ??F) 12/08/2022 9:43 AM CD T Respiratory Rate 20 12/08/2022 9:43 AM CDT Oxygen Saturation 97% 12/08/2022 9:43 AM CDT Inhaled Oxygen Concentration - - Weight 48.9 kg (107 lb 12.8 oz) 12/08/2022 9:43 AM CDT Height 157.5 cm (5' 2 ) 12/08/2022 9:43 AM CDT Body Mass Index 19.72 12/08/2022 9:43 AM CDT documented in this encounter Progress Notes * Qi Alcala NP - 12/08/2022 10:00 AM CDT NAME: Francine Erwin : 1940 DATE: 12/08/2022 CHIEF COMPLAINT: Evaluation of right abnormal mammogram. HISTORY OF PRESENT ILLNESS: Francine Erwin is a 82 y.o. woman referred by Angie Riddle MD who requested that I evaluate her for her right abnormal mammogram. The patient states that she was undergoing her routine mammogram when she was alerted to an abnormality. She underwent additional i maging and ultimately was recommended to undergo a biopsy. She presents today for a second opinion regarding this. The patient states that she herself had not noticed any abnormal masses in either breast. Patient does state having a previous left breast biopsy in 2017 that resulted as benign. She states that she does monthly exams however she feels her breasts are always lumpy. She denies any change in the appearance of her breasts or the skin of her breasts. She denies nipple discharge bilaterally. She has no other systemic complaints and otherwise feels well today. This is a pleasant 82 y.o. woman who can't remember when she underwent menarche. She has had 2 pregnancies and 2 live births, the first of which was at age 23. She did not breastfeed her children. Her last menstrual period was prior to menopause. She underwent natural menopause at an unknown age. She has never been on hormone replacement therapy. She used oral contraception for less than a year in the past. She has undergone previous left breast biopsy that resulted as benign. She has not had any breast surgeries. Her family history is significant in that she reports her father diagnosed withlung cancer in his 70s and her mother diagnosed with skin cancer in her 50s. She denies any other family history of cancer specifically breast or ovarian. 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 Chronic A lead is from 09-13-03. [facility]. Paroxysmal atrial fibrillation (CMS/HCC) ([facility]) PAF - Paroxysmal atrial fibrillation; Comments: [facility] 07/20/2013 - Sick sinus syndrome (CMS/HCC) (HCC) SSS; Comments: [facility] 07/20/2013 - Past Surgical History: Procedure Laterality Date CARDIAC PACEMAKER PLACEMENT 2010 Cardiac pacemaker CARDIAC PACEMAKER PLACEMENT Cardiac pacemaker INSERT / REPLACE / REMOVE PACEMAKER HOME MEDICATIONS : atorvastatin (LIPITOR) 20 mg tablet cholecalciferol (VITAMIN D-3) 5,000 unit tablet dabigatran (Pradaxa) 150 mg capsule diltiazem LA (CARDIZEM LA) 180 mg 24 hr tablet meloxicam (MOBIC) 15 mg tablet metoprolol XL (TOPROL-XL) 25 mg extended release tablet multivitamin tablet tablet omega-3 fatty acids-vitamin E (FISH OIL) 1,000 mg capsule VIT C/E/ZN/COPPR/LUTEIN/ZEAXAN (PRESERVISION AREDS 2 ORAL) ascorbic acid/collagen hydr (COLLAGEN PLUS VITAMIN C ORAL) cyanocobalamin (Vitamin B-12) 1,000 mcg tablet polycarbophil (FIBERCON) 625 mg tablet No Known Allergies Social History Tobacco Use Smoking status: Former Packs/day: .5 Types: Cigarettes Quit date: 1984 Years since quittin.7 Smokeless tobacco: Never Substance and Sexual Activity Drug use: No Sexual activity: None Alcohol Use: Not on file Family History Problem Relation Age of Onset Coronary artery disease Father Coronary Artery Bypass Graft; Lung cancer Father Cancer, lung; Cause of : Cancer, lung Other Other Family history of [place]; [place]/ [place] Mother Skin cancer Mother REVIEW OF SYSTEMS: The patient's review of systems were reviewed as per the chart today and no other findings were noted. The patient's past medical history, social history, and family history are listed on their questionnaire and has been reviewed and can be found in the chart. PHYSICAL EXAMINATION: GENERAL: She is a well-developed, well-nourished woman in no acute distress. HEENT: Within normal limits. NECK: Neck is supple without lymphadenopathy or thyromegaly. LUNGS: Respirations non-labored HEART: Regular. ABDOMEN: Soft without organomegaly. EXTREMITIES: Warm without edema. NEUROLOGICAL: She is alert and oriented x 3. BREAST EXAMINATION: Bilateral breast examination reveals normal ptotic breasts bilaterally. The right breast is without any dominant masses, skin changes, nipple discharge, or axillary adenopathy. The left breast is without any dominant masses, skin changes, nipple discharge, or axillary adenopathy. IMAGING: I have placed an order for a right breast ultrasound and right diagnostic mammogram. IMPRESSION/RECOMMENDATION: Francine Erwin is a 82 y.o. woman who presents today for a consultation regarding her right abnormal mammogram. I reviewed the clinical findings with her today. We discussed the fact that this is an indeterminate finding and we would recommend additional imaging. I have made arrangements for a right breast mammogram and ultrasound in our Radiology Departmento. I should have the final results approximately 1-2 days later, and I will contact her with the results. At that time, we will discuss the recommendations and plan going forward. I answered all of her questions today and she is in agreement with the plan. I encouraged her to contact me in the interim if any new questions or concerns arise. PLAN: Care will obtain her imaging at [facility] once they have been finalized I will call and discuss the results. We will move forward with the plan of care that time. Qi Alcala NP Portions of this note were dictated using Path Direct speech recognition software. Please excuse any spark tester errors. mamm Cosigned by Katarina Akhtar MD PhD at 12/08/2022 4:27 PM CDT documented in this encounter Plan of Treatment Not on file documented as of this encounter Results * Diagnostic Mammogram Right W Puneet (01/04/2023 1:47 PM DIRECTOR OF DONOR RELATIONS) Anatomical Region Laterality Modality Breast Right Mammography 01/04/2023 2:29 PM DIRECTOR OF DONOR RELATIONS Impressions 01/04/2023 2:30 PM DIRECTOR OF DONOR RELATIONS No mammographic or sonographic evidence of malignancy in the RIGHT breast. OVERALL FINAL ASSESSMENT: BI-RADS Category 1: Negative. RECOMMENDATION: Annual screening mammography is recommended. Dictated by: Salvador Vaughn M.D. The radiology attending physician has personally reviewed this study, and had reviewed and/or edited this written report and agrees with it. Electronically signed by: Angie Richards M.D. Narrative 01/04/2023 2:30 PM DIRECTOR OF DONOR RELATIONS EXAMINATION: RIGHT UNILATERAL DIGITAL DIAGNOSTIC MAMMOGRAM AND [...] signed by: Angie Richards M.D. Qi Alcala CHIEF SUSTAINABILITY OFFICER IMG MAMMO PROCEDURES Final Result documented in this encounter Visit Diagnoses Diagnosis Mass of upper outer quadrant of right breast- Primary Mass of upper outer quadrant of right breast documented in this encounter Orders Outpatient Referral Count Last Ordered Date Fir st Ordered Date AMB REFERRAL TO SURGICAL ONCOLOGY 1 023 documented in this encounter Care Teams Marketing Teacher Relationship Specialty Start Date End Date Luisa Mitchell DO [address] [place], [place] [id number] PCP - General Internal Medicine 08/11/22 Angie Riddle MD [address] [place] [address] Gynecology 08/19/16 documented as of this encounter
--- OUTSIDE RECORDS SUMMARY | 2024-03-01 05:50 | XMS_ITS | Encounter Summary ---
Author Organization [facility] Healthcare Address [address] [place] [address] Care Team Providers Care Tv Production Assistant Name Role Phone Angie Riddle MD Unavailable [phone] Luisa Mitchell DO Primary Care Provider [phone] Reason for Referral * Cardiology (Routine) - Closed Specialty Diagnoses / Procedures Referred By Contac t Referred To Contact Diagnoses SSS (sick sinus syndrome) (CMS/HCC) (HCC) Procedures DEVICE CHECK - REMOTE Yoni Matamoros MD [address], [place] [address] Phone: tel: fax: Referral ID Status Reason Start Date Expiration Date Visits Re quested Visits Authorized [id number] Closed 01/25/2023 07/25/2024 1 1 ID DERIVATIVES TRADER * Cardiology (Routine) - Closed Specialty Diagnoses / Procedures Referred By Contac t Referred To Contact Diagnoses SSS (sick sinus syndrome) (CMS/HCC) (HCC) Procedures DEVICE CHECK - REMOTE Yoni Matamoros MD [address], [place] [address] Phone: tel: fax: Referral ID Status Reason Start Date Expiration Date Visits Re quested Visits Authorized [id number] Closed 01/25/2023 07/25/2024 1 1 ID DERIVATIVES TRADER * Cardiology (Routine) - Closed Specialty Diagnoses / Procedures Referred By Contac t Referred To Contact Diagnoses SSS (sick sinus syndrome) (CMS/HCC) (HCC) Procedures DEVICE CHECK - REMOTE Yoni Matamoros MD [address] [facility] [address], [place] [address] Phone: tel: fax: Referral ID Status Reason Start Date Expiration Date Visits Re quested Visits Authorized [id number] Closed 01/25/2023 07/25/2024 1 1 ID DERIVATIVES TRADER * Cardiology (Routine) - Authorized Specialty Diagnoses / Procedures Referred By Contac t Referred To Contact Diagnoses SSS (sick sinus syndrome) (CMS/HCC) (HCC) Procedures DEVICE CHECK - REMOTE Yoni Matamoros MD [address] [facility] [address], [place] [address] Phone: tel: fax: Referral ID Status Reason Start Date Expiration Date V isits Requested Visits Authorized [id number] Authorized 01/25/2023 07/25/2024 1 1 ID DERIVATIVES TRADER * Cardiology (Routine) - Authorized Specialty Diagnoses / Procedures Referred By Contac t Referred To Contact Diagnoses SSS (sick sinus syndrome) (CMS/HCC) (HCC) Procedures DEVICE CHECK - REMOTE Yoni Matamoros MD [address] [facility] [address], [place] [address] Phone: tel: fax: Referral ID Status Reason Start Date Expiration Date V isits Requested Visits Authorized [id number] Authorized 01/25/2023 07/25/2024 1 1 ID DERIVATIVES TRADER Encounter Details Date Type Department Care Team (Late st Contact Info) Description 01/25/2023 Orders Only [facility] Medical [facility] Cardiology [facility] [address], [place] [address] Yoni Matamoros MD [address] [place] [address] SSS (sick sinus syndrome) (CMS/HCC) [...] on file Legal Sex Female 9:31 AM HYBRID DERIVATIVES TRADER Gender Identity Not on file Sexual Orientation Not on file documented as of this encounter Plan of Treatment Scheduled Orders Name Type Priority Associated Diagnoses Orde r Schedule DEVICE CHECK - REMOTE Cardiac Services Routine SSS (sick sinus syndrome) (CMS/HCC) (HCC) 1 Occurrences starting 01/25/2023 until 07/25/2024 DEVICE CHECK - REMOTE Cardiac Services Routine SSS (sick sinus syndrome) (CMS/HCC) (HCC) 1 Occurrences starting 01/25/2023 until 07/25/2024 documented as of this encounter Results * DEVICE CHECK - REMOTE (11/08/2023 7:50 AM CDT) Anatomical Region Laterality Modality Other Narrative 11/08/2023 8:55 AM CDT Table formatting from the original result was not included. PM CHECK (REMOTE) Patient ID: Francine Erwin is a 83 y.o. female This patient received a Medtronic Pacemaker. ??They had a routine remote transmission on 11/08/2023. Device implant indications: ??Sick sinus syndrome ?? Interrogation of the patient's device demonstrates the following: Presenting EGM: ??V sensed @ 85 bpm Original Device Settings Right Atrium Right Ventricle Sensitivity (mV) N/A mV 4.0 mV Pacing Outputs N/A V @ ??ms 1.5 V @ 0.4 ms Testing Measurements Right Atrium Right Ventricle Sensitivity (mV) Not done mV Not done mV Impedence (Ohms) Not done ohms 520 ohms Pace Threshold Not done V @ ??ms Not done V @ ??ms Pacing % N/A % 3.4 % Battery Status: ??The battery has reached the recommended replacement time/SARMAD as of October 08, 2023. Episodes last 90 days/Comments: There were no ventricular high rates noted on today's remote interrogation. The device has reverted to the VVI mode at a backup rate of 65 beats per minute. NORMAL DEVICE FUNCTION PROGRAMMED MEDICATIONS: Anti-coagulant(s): ??Pradaxa 150 mg twice daily Anti-arrhythmic(s): ??Diltiazem CD 180 mg daily, Toprol-XL 50 mg daily PLAN: 1) Medtronic Pacemaker evaluation 2) we will arrange for device change out within the next several weeks. 3) Programming appropriate for device measurements Jaycob Mar RN us Yoni Matamoros MD [facility] PRO CEDURES Final Result * DEVICE CHECK - REMOTE (08/02/2023 7:51 AM CDT) Anatomical Region Laterality Modality Other Narrative 08/02/2023 4:51 PM CDT Table formatting from the original result was not included. PM CHECK (REMOTE) Patient ID: Francine Erwin is a 83 y.o. female This patient received a Medtronic Pacemaker. ??They had a routine remote transmission on 08/02/2023. Device implant indications: ??Sick sinus syndrome ?? Interrogation of the patient's device demonstrates the following: Presenting EGM: ??AFib V paced @ 70 bpm Original Device Settings Right Atrium Right Ventricle Sensitivity (mV) 0.5 mV 2.8 mV Pacing Outputs 2.5 V @ 0.4 ms 1.5 V @ 0.4 ms Testing Measurements Right Atrium Right Ventricle Sensitivity (mV) paced mV 5.6-16 mV Impedence (Ohms) 635 ohms 517 ohms Pace Threshold 1.25 V @ 0.4 ms 0.75 V @ 0.4 ms Pacing % 86.4 % 0.5 % Battery Status: 4 months to SARMAD Episodes last 90 days/Comments: AF [place] 21.5 %, longest duration currently in progress since 07/31 at 12:45 p.m. average ventricular rates in the 70s to 120s. There were no ventricular events noted on today's remote interrogation. NORMAL DEVICE FUNCTION PROGRAMMED MEDICATIONS: Anti-coagulant(s): ??Pradaxa 150 mg twice daily Anti-arrhythmic(s): ??Toprol-XL 50 mg daily, Cardizem CD 180 mg daily PLAN: 1) normal Medtronic Pacemaker evaluation 2) Medtronic remote transmission scheduled in 3 months. 3) Programming appropriate for device measurements Carol Yuan RN Yoni Matamoros MD [facility] PRO CEDURES Final Result * DEVICE CHECK - REMOTE (05/03/2023 7:44 AM HYBRID DERIVATIVES TRADER) Anatomical Region Laterality Modality Other Narrative 05/03/2023 12:24 PM HYBRID DERIVATIVES TRADER Table formatting from the original result was not included. PM CHECK (REMOTE) Patient ID: Francine Erwin is a 83 y.o. female This patient received a Medtronic Pacemaker. ??They had a routine remote transmission on 05/03/2023. Device implant indications: ??Sick sinus syndrome, AF ?? Interrogation of the patient's device demonstrates the following: Presenting EGM: ??A paced V sense @ 75 bpm Original Device Settings Right Atrium Right Ventricle Sensitivity (mV) 0.5 mV 2.8 mV Pacing Outputs 2.5 V @ 0.4 ms 1.5 V @ 0.4 ms Testing Measurements Right Atrium Right Ventricle Sensitivity (mV) Paced mV 5.6-16 mV Impedence (Ohms) 622 ohms 517 ohms Pace Threshold 1.25 V @ 0.4 ms 0.75 V @ 0.4 ms Pacing % 87.9 % 0.5 % Battery Status: ??14 months to SARMAD Episodes last 90 days/Comments: AF [place] 18.7 %, longest duration of 3 hours and 4 minutes on 04/28/2023. ??Ventricular rates ranged from 90-157 bpm. There were no ventricular events noted on today's remote interrogation. NORMAL DEVICE FUNCTION PROGRAMMED MEDICATIONS: Anti-coagulant(s): ??Pradaxa 150 mg twice a day Anti-arrhythmic(s): ??Diltiazem LA 100 mg daily, Toprol-XL 50 mg daily PLAN: 1) normal Medtronic Pacemaker evaluation 2) Medtronic remote transmission scheduled in 3 months. 3) Programming appropriate for device measurements Carol Yuan, RN us Yoni Matamoros MD [facility] PRO CEDURES Final Result documented in this encounter Visit Diagnoses Diagnosis SSS (sick sinus syndrome) (CMS/HCC) (HCC)- Primary Sinoatrial node dysfunction Pacemaker- Primary Cardiac pacemaker in situ SSS (sick sinus syndrome) (CMS/HCC) (HCC) Sinoatrial node dysfunction Pacemaker- Primary Cardiac pacemaker in situ SSS (sick sinus syndrome) (CMS/HCC) (HCC) Sinoatrial node dysfunction Pacemaker- Primary Cardiac pacemaker in situ SSS (sick sinus syndrome) (CMS/HCC) (HCC) Sinoatrial node dysfunction documented in this encounter Care Teams Tv Production Assistant Relationship Specialty Start Date End Date Luisa Mitchell DO [address] [place], [place] [id number] PCP - General Internal Medicine 08/11/22 Angie Riddle MD [address] [place], [place] [id number] Gynecology 08/19/16 documented as of this encounter
--- OUTSIDE RECORDS SUMMARY | 2024-03-01 05:50 | XMS_ITS | Encounter Summary ---
Author Organization [facility] Healthcare Address [address] [place] [address] Care Team Providers Care Autism Tutor Name Role Phone Angie Riddle MD Unavailable [phone] Luisa Mitchell DO Primary Care Provider [phone] Reason for Visit * Cardiology (Routine) - Closed Specialty Diagnoses / Procedures Referred By Viridiana oconnor Referred To Contact Diagnoses SSS (sick sinus syndrome) (CMS/HCC) (FORMERLY [facility]) Procedures DEVICE CHECK - REMOTE Yoni Matamoros MD [address] [facility] [address] [place] [address] Phone: tel: fax: [facility] Medical Group Referral ID Status Reason Start Date Expiration Date Visits Re quested Visits Authorized [id number] Closed 06/26/2021 12/26/2022 1 1 Encounter Details Date Type Department Care Team (Latest Contact Info) Description 01/25/2023 9:30 AM TRANSPORTATION LEAD Ancillary Procedure [facility] Medical Group Cardiology [address] [facility] [address] [place] [id number] Pacemaker (Primary Dx); SSS (sick sinus syndrome) [...] on file Legal Sex Female 9:31 AM TRANSPORTATION LEAD Gender Identity Not on file Sexual Orientation Not on file documented as of this encounter Plan of Treatment Not on file documented as of this encounter Procedures Procedure Name Priority Date/Time Associated Diagnosis Comments DEVICE CHECK - REMOTE Routine 01/25/2023 8:46 AM TRANSPORTATION LEAD SSS (sick sinus syndrome) (CMS/HCC) (HCC) documented in this encounter Results * DEVICE CHECK - REMOTE (01/25/2023 8:46 AM TRANSPORTATION LEAD) Anatomical Region Laterality Modality Other Narrative 02/02/2023 10:20 AM TRANSPORTATION LEAD Table formatting from the original result was [...] ??to SARMAD Episodes last 90 days/Comments: AF [place] 16.9 %, longest duration > 48 hours while patient is in afib high V rates are noted NORMAL DEVICE FUNCTION PROGRAMMED MEDICATIONS: Anti-coagulant(s): Pradaxa 150mg ??BID Anti-arrhythmic(s): Cardizem 180mg, Toprol XL 25 mg PLAN: 1) Medtronic Pacemaker evaluation 2) Medtronic remote transmission scheduled in 3 months. 3) Programming appropriate for device measurements Zhanna Enriquez RN us Yoni Matamoros MD [facility] PRO CEDURES Final Result documented in this encounter Visit Diagnoses Diagnosis Pacemaker- Primary Cardiac pacemaker in situ SSS (sick sinus syndrome) (CMS/HCC) (HCC) Sinoatrial node dysfunction documented in this encounter Care Teams Autism Tutor Relationship Specialty Start Date End Date Luisa Mitchell DO [address] [place] [address] PCP - General Internal Medicine 08/11/22 Angie Riddle MD [address] [place] [address] Gynecology 08/19/16 documented as of this encounter
--- OUTSIDE RECORDS SUMMARY | 2024-03-01 05:50 | XMS_ITS | Encounter Summary ---
Author Organization [facility] Medical Group Address [address] [place] [address] Care Team Providers Care Pie Cutter Name Role Phone Angie Riddle MD Unavailable Luisa Mitchell DO Primary Care Provider [phone] Encounter Details Date Type Department Care Team (Late st Contact Info) Description 08/13/2022 Orders Only [facility] Medical Group Cardiology [address] [facility] [address] [place] [address] Provider, MD Mikhail [address] [place], [place] [id number] Social History Tobacco Use Types Packs/Day Years Used Date Smoking Tobacco: Former Cigarettes Q uit: 1985 Smokeless Tobacco: Never Alcohol Use Standard Drinks/Week Comments No 0 (1 standard drink = 0.6 oz pur e alcohol) Comments No Sex and Gender Information Value Date Recorded Sex Assigned at Not on file Legal Sex Female 9:31 AM SHAREMILKER Gender Identity Not on file Sexual Orientation Not on file documented as of this encounter Plan of Treatment Not on file documented as of this encounter Procedures Procedure Name Priority Date/Time Associated Diagnosis Comments LP W CHOL/HDL RATIO Routine 06/11/2022 documented in this encounter Results * LP w Chol/HDL Ratio (06/11/2022) Blood us Historical Provider LAB BLOOD ORDERABLES Caroline vines Result EXTERNAL LAB documented in this encounter Visit Diagnoses Not on filedocumented in this encounter Care Teams Pie Cutter Relationship Specialty Start Date End Date Luisa Mitchell DO [address] [place], [place] [id number] PCP - General Internal Medicine 08/11/22 Angie Riddle MD [address] [place] [address] Gynecology 08/19/16 documented as of this encounter
--- OUTSIDE RECORDS SUMMARY | 2024-03-01 05:50 | XMS_ITS | Encounter Summary ---
Author Organization [facility] Healthcare Address [address] [place] [address] Care Team Providers Care Apple Peeler Operator Name Role Phone Anige Riddle MD Unavailable [phone] Luisa Mitchell DO Primary Care Provider [phone] Reason for Visit * Cardiology (Routine) - Closed Specialty Diagnoses / Procedures Referred By Viridiana oconnor Referred To Contact Diagnoses SSS (sick sinus syndrome) (CMS/HCC) (FORM[facility]LY [facility]) Procedures DEVICE CHECK - REMOTE Yoni Matamoros MD [address] [facility] [address] [address] Phone: tel: fax: Referral ID Status Reason Start Date Expiration Date Visits Re quested Visits Authorized [id number] Closed 01/25/2023 07/25/2024 1 1 Encounter Details Date Type Department Care Team (Latest Contact Info) Description 05/03/2023 7:00 AM MEDICAL ANTHROPOLOGY DIRECTOR Ancillary Procedure [facility] Medical Group Cardiology [address] [facility] [address], [place] [address] Pacemaker (Primary Dx); SSS (sick sinus syndrome) (CMS/HCC) (HCC) Social History Tobacco Use Types Packs/Day Years Used Date Smoking Tobacco: Former Cigarettes Q uit: 1985 Smokeless Tobacco: Never Alcohol Use Standard Drinks/Week Comments No 0 (1 standard drink = 0.6 oz pur e alcohol) Personal Safety Answer Date Recorded Getting School Help Needed Not on file 03/25 Comments No Sex and Gender Information Value Date Recorded Sex Assigned at Not on file Legal Sex Female 9:31 AM MEDICAL ANTHROPOLOGY DIRECTOR Gender Identity Not on file Sexual Orientation Not on file documented as of this encounter Plan of Treatment Not on file documented as of this encounter Procedures Procedure Name Priority Date/Time Associated Diagnosis Comments DEVICE CHECK - REMOTE Routine 05/03/2023 7:44 AM MEDICAL ANTHROPOLOGY DIRECTOR SSS (sick sinus syndrome) (CMS/HCC) (HCC) documented in this encounter Results * DEVICE CHECK - REMOTE (05/03/2023 7:44 AM MEDICAL ANTHROPOLOGY DIRECTOR) Anatomical Region Laterality Modality Other Narrative 05/03/2023 12:24 PM MEDICAL ANTHROPOLOGY DIRECTOR Table formatting from the original result was [...] to SARMAD Episodes last 90 days/Comments: AF [place] 18.7 %, longest duration of 3 hours [...] dysfunction documented in this encounter Care Teams Apple Peeler Operator Relationship Specialty Start Date End Date Luisa Mitchell DO [address] [place], [place] [id number] PCP - General Internal Medicine 08/11/22 Angie Riddle MD [address] [place] [address] Gynecology 08/19/16 documented as of this encounter
--- OUTSIDE RECORDS SUMMARY | 2024-03-01 05:50 | XMS_ITS | Encounter Summary ---
Author Organization [facility] Healthcare Address [address] [place] [address] Care Team Providers Care Machining And Assembly Supervisor Name Role Phone Angie Riddle MD Unavailable [phone] Luisa Mitchell DO Primary Care Provider [phone] Encounter Details Date Type Department Care Team (Latest Contact Info) Description 09/27/2023 2:54 PM CDT - 09/27/2023 11:59 PM CDT Hospital Encounter [facility] - Imaging [address] [place] [address] Arthralgia of both hands Discharge Disposition: Discharge to home or self [...] on file Legal Sex Female 9:31 AM SENIOR PAYROLL MANAGER Gender Identity Not on file Sexual Orientation Not on file documented as of this encounter Medications at Time of Discharge atorvastatin (LIPITOR) 20 mg tablet Take 1 tablet (20 mg total) by mouth daily dilTIAZem CD 180 mg 24 hr capsule Take by mouth daily 08/01/2023 omega-3 fatty acids-vitamin E (FISH OIL) 1,000 mg capsule take 1 by Oral route 3 times every day 0 0 07/21/2013 VIT C/E/ZN/COPPR/LUT EIN/ZEAXAN (PRESERVISION AREDS 2 ORAL) Take by mouth Take 2 capsules daily ascorbic acid/collagen hydr (COLLAGEN PLUS VITAMIN C ORAL) Take 6 tablets by mouth daily 11/12/2023 cholecalciferol (VITAMIN D-3) 5,000 unit tablet daily 11/12/2023 cyanocobalamin (Vitamin B-12) 1,000 mcg tabletIndication s:Prevention of Vitamin B12 Deficiency Take 5 tablets (5,000 mcg total) by mouth daily 11/12/2023 dabigatran (Pradaxa) 150 mg capsule Take 1 capsule (150 mg total) by mouth 2 (two) times a day 180 capsule 2 03/25/2023 12/28/2023 meloxicam (MOBIC) 15 mg tablet take 1 tablet by oral route every day as needed 0 0 07/21/2013 11/12/2023 meloxicam (MOBIC) 7.5 mg tablet Take 1 tablet (7.5 mg total) by mouth daily as needed 08/26/2023 11/12/2023 metoprolol XL (TOPROL-XL) 50 mg extended release tablet TAKE 1 TABLET BY MOUTH EVERY DAY 90 tablet 06/03/2023 10/28/2023 multivitamin tablet tablet take 1 by Oral route once 0 0 07/21/2013 11/12/2023 polycarbophil (FIBERCON) 625 mg tablet Take 1 tablet (625 mg total) by mouth daily ONE IN AM AND TWO AT PM 11/12/2023 documented as of this encounter Discharge Disposition Disposition Code Departure Means Destination Discharge to home or self care documented in this encounter Plan of Treatment Not on file documented as of this encounter Procedures Procedure Name Priority Date/Time Associated Diagnosis Comments XR HAND BILATERAL 3 OR MORE VIEWS OF EACH Schedule Routine, Read Routine (OP Routine) 09/27/2023 3:19 PM CDT Arthralgia of both hands documented in this encounter Results * XR Hand Bilateral 3 or More Views of Each (09/27/2023 3:19 PM CDT) Anatomical Region Laterality Modality Upper Extremities, Hand Digital Radiography 09/27/2023 4:20 PM CDT Impressions 09/27/2023 4:20 PM CDT Left hand: 1. 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 Right hand: 1. 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 COMMENT: Please see above for additional findings. Electronically signed by: Fletcher Ortiz M.D. Narrative 09/27/2023 4:20 PM CDT Bilateral hands, 3 views each side HISTORY: ??Bilateral hand pain COMPARISON: ??None available.. FINDINGS: Left Hand: There is no evidence of fracture, stress fracture or dislocation. Soft tissue swelling is not significantly radiologically apparent. The mineralization is within expected limits for age. The alignment is within expected limits. No periarticular swelling is appreciated. There is no evidence of an erosion, significant intraosseous cystic change. There is noted marked deformity of many of the distal interphalangeal as well as proximal interphalangeal joints in a manner suggesting erosive osteoarthritis There is also marked degenerative joint disease in the 1st carpometacarpal joint. There is no gross evidence of a joint effusion. The remainder of the examination is within expected limits. Right Hand: There is no evidence of fracture, stress fracture or dislocation. Soft tissue swelling is not significantly radiologically apparent. The mineralization is within expected limits for age. The alignment is within expected limits. No periarticular swelling is appreciated. There is no evidence of an erosion, significant intraosseous cystic change. There is noted a deformity of multiple joints including the 2nd and 3rd distal interphalangeal joints and the 2nd, 3rd and 4th proximal interphalangeal joints as well as the 1st interphalangeal and 1st carpometacarpal joint suggesting erosive osteoarthritis. ??Other sites of less significant disease are noted. There is no gross evidence of a joint effusion. The remainder of the examination is within expected limits. Procedure Note Fletcher Ortiz MD - 09/27/2023 Bilateral hands, 3 views each side HISTORY: Bilateral hand pain COMPARISON: None available.. FINDINGS: Left Hand: There is no evidence of fracture, stress fracture or dislocation. Soft tissue swelling is not significantly radiologically apparent. The mineralization is within expected limits for age. The alignment is within expected limits. No periarticular swelling is appreciated. There is no evidence of an erosion, significant intraosseous cystic change. There is noted marked deformity of many of the distal interphalangeal as well as proximal interphalangeal joints in a manner suggesting erosive osteoarthritis There is also marked degenerative joint disease in the 1st carpometacarpal joint. There is no gross evidence of a joint effusion. The remainder of the examination is within expected limits. Right Hand: There is no evidence of fracture, stress fracture or dislocation. Soft tissue swelling is not significantly radiologically apparent. The mineralization is within expected limits for age. The alignment is within expected limits. No periarticular swelling is appreciated. There is no evidence of an erosion, significant intraosseous cystic change. There is noted a deformity of multiple joints including the 2nd and 3rd distal interphalangeal joints and the 2nd, 3rd and 4th proximal interphalangeal joints as well as the 1st interphalangeal and 1st carpometacarpal joint suggesting erosive osteoarthritis. Other sites of less significant disease are noted. There is no gross evidence of a joint effusion. The remainder of the examination is within expected limits. IMPRESSION: Left hand: 1. 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 Right hand: 1. 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 COMMENT: Please see above for additional findings. Electronically signed by: Fletcher Ortiz M.D. Renetta Geller MD IMG XR PROCEDURES Final Result documented in this encounter Visit Diagnoses Diagnosis Arthralgia of both hands documented in this encounter Care Teams Machining And Assembly Supervisor Relationship Specialty Start Date End Date Luisa Mitchell DO [address] [place], [place] [id number] PCP - General Internal Medicine 08/11/22 Angie Riddle MD [address] [place] [address] Gynecology 08/19/16 documented as of this encounter
--- OUTSIDE RECORDS SUMMARY | 2024-03-01 05:50 | XMS_ITS | Encounter Summary ---
Author Organization [facility] Healthcare Address [address] [place] [address] Care Team Providers Care Medical Staff Manager Name Role Phone Angie Riddle MD Unavailable [phone] Luisa Mitchell DO Primary Care Provider [phone] Reason for Visit * Auth/Cert (Routine) Specialty Diagnoses / Procedures Referred By Viridiana oconnor Referred To Contact Diagnoses SSS (sick sinus syndrome) (CMS/HCC) (HCC) SSS (sick sinus syndrome) (CMS/HCC) (HCC) [I49.5] Procedures DC REMVL PERM PM PLS GEN W/REPL PLSE GEN 2 LEAD SYS REMOVE/REPLACE PACEMAKER (PPM) DUAL LEAD SYSTEM [id number] Arnold Stout III, MD [address] [address] Phone: tel: fax: Referral ID Status Reason Start Date Expiration Date Visits Re quested Visits Authorized [id number] 11/08/2023 1 1 Encounter Details Date Type Department Care Team (Latest Contact Info) Description 11/15/2023 10:51 AM CDT - 11/15/2023 12:30 PM CDT Hospital Encounter [facility] Electrophysiology Lab [address] [place] [address] Arnold Stout III, MD [address] [address] SSS (sick sinus syndrome) (CMS/HCC) (HCC) Discharge Disposition: Discharge to home or self [...] on file 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 Gender Identity Not on file Sexual Orientation Not on file documented as of this encounter Last Filed Vital Signs Vital Sign Reading Time Taken Comments Blood Pressure 158/81 11/15/2023 11:55 AM CDT Pulse 67 11/15/2023 11:55 AM CDT Temperature 37 ??C (98.6 ??F) 11/15/2023 11:55 AM CDT Respiratory Rate 22 11/15/2023 11:55 AM CDT Oxygen Saturation 96% 11/15/2023 11:55 AM CDT Inhaled Oxygen Concentration - - Weight 51.5 kg (113 lb 8.6 oz) 11/15/2023 11:55 AM CDT Height 160 cm (5' 3 ) 11/15/2023 11:55 AM CDT Body Mass Index 20.11 11/15/2023 11:55 AM CDT documented in this encounter Discharge Instructions * Discharge Instructions* Arnold Stout III, MD - 11/15/2023 4:09 PM CDT Images from the original note were not included. [facility] Arrhythmia Center Discharge Instructions Generator [...] with you, please read the instructions and quality assurance supervisor chassis the monitor. Additional Instructions Extra Strength Tylenol may be taken every 6 hours as needed for pain. You should avoid strong magnetic currents (large electrical generators, arc welding). You can operate any home electrical appliances including microwave ovens. Notify the physician office at [phone], immediately if you develop abrupt dizziness or shortness of breath. If you feel there is an urgent matter, call 911 or go to the emergency room. Call the office at [phone] with any questions or concerns. Call to schedule a follow-up appointment / wound check. This should be done in the first 7-10 days following your procedure. IMPORTANT: DO NOT TAKE PRADAXA (DABIGATRAN) FOR 3 days AFTER THE PROCEDURE. YOU MAY RESUME ON 11/18/23 Arnold Stout III, M.D. Cardiac Electrophysiology [facility] Arrhythmia [facility] 11/08/2023 documented in this encounter [...] day for 5 days 15 capsule 11/15/2023 4 documented in this encounter Discharge Disposition Disposition Code Departure Means Destination Comment s Discharge to home or self care documented in this encounter H&P Notes * Arnold Stout III, MD - 11/17/2023 9:36 PM CDT [facility] Arrhythmia Center: Focused H&P Patient ID Francine [...] Date Noted SSS (sick sinus syndrome) (CMS/HCC) ([facility]) 11/08/2023 Paroxysmal atrial fibrillation (CMS/HCC) ([facility]) 09/07/2016 Overview Note: On chronic AC. 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 Chronic A lead is from 09-13-03. [facility] Card. Breast mass, left 08/19/2016 Allergies No [...] s/p dual chamber pacemaker Pacemaker generator SARMAD stuats Methods: After informed consent was obtained, the [...] parameters and device programming: - RA Lead (#[id number]): Sensing 3.1 mV, Pacing threshold 1.2 V at 0.5 ms, Imp 532 Ohm - RV Lead (#[id number]): Sensing >8 mV, Pacing threshold 1.0 V at 0.5 ms, Imp 494 Ohm - Device: Medtronic Kylah S MRI SureScan pacemaker (#[id number]), programmed MVPR 60-120 ppm - Explanted device: Medtronic Jose COBOS (#[id number]) Conclusions: 1. Successful dual chamber pacemaker revision 2. Pulse generator change, pacemaker Recommendations: 1. Discharge home when stable 2. Oral antibiotics for five days 3. Hold pradaxa for 3 days. 4. Follow-up will be arranged in the Arrhythmia Center 7-10 days post-discharge Arnold Stout III, M.D. Cardiac Electrophysiology [facility] Arrhythmia [facility] documented in this encounter Plan [...] CDT) 11/15/2023 12:0 2 PM CDT Narrative [facility] - 11/15/2023 9:46 PM CDT Vent Rate: 65 bpm RR Interval: 921 msec DC Interval: 0 msec QRS Duration: 202 msec QT Interval: 486 msec QTC Interval: 497 msec P-R-T [place]: 0 - 102 - -66 degrees IMPRESSION: ELECTRONIC VENTRICULAR PACEMAKER ABNORMAL RHYTHM ECG Electronically Signed By: Rajendra Nunes MD Arnold Stout III, MD ECG ORDERABLES Fin al Result [facility] documented in this encounter Visit Diagnoses Diagnosis SSS (sick sinus syndrome) (CMS/HCC) (HCC)- Primary Sinoatrial node dysfunction documented in this encounter Admitting Diagnoses Diagnosis SSS (sick sinus syndrome) (CMS/HCC) (HCC) Sinoatrial node dysfunction documented in this encounter Administered Medications Inactive Administered Medications - up to 3 most recent administrations Medication Order MAR Action Action Date Dose Rate Site sodium chloride 0.9% infusion 50 mL/hr, intravenous, Continuous, Starting on Wed11/15/23 at 1230, Pre-Procedure (CV) New Bag 11/15/2023 12:01 PM CDT 50 mL/hr 50 mL/hr documented in this encounter Discontinued Medications Medication [...] III, MD) documented in this encounter Orders Medications Ordered That Renzo ht Not Have Been Administered Count Last Ordered Date First Ordered Date lidocaine (XYLOCAINE) 20 mg/ mL (2 %) injection 1 11/15/2023 sodium chloride 0.9% irrigation 1 4 Discharge Count Last Ordered Date First Orde red Date DISCHARGE PATIENT 1 11/15/2023 documented in this encounter Care Teams Medical Staff Manager Relationship Specialty Start Date End Date Luisa Mitchell DO [address] [place], [place] [id number] PCP - General Internal Medicine 08/11/22 Angie Riddle MD [address] [place], [place] [id number] Gynecology 08/19/16 documented as of this encounter
--- OUTSIDE RECORDS SUMMARY | 2024-03-01 05:50 | XMS_ITS | Encounter Summary ---
Author Organization [facility] Address [address] [place] [address] Phone Care Team Providers Care Teletype Operator Name Role Phone Angie Riddle MD Unavailable [phone] Luisa Mitchell DO Primary Care Provider Encounter Details Date Type Department Care Team (Late st Contact Info) Description 01/04/2023 Documentation [facility] Surgery [address] [facility] Advanced Medicine 5th [place] [address] [place] [phone] Qi Alcala NP [address] [facility] [address] [place] [address] Social History Tobacco Use Types Packs/Day Years Used Date Smoking Tobacco: Former Cigarettes Q uit: 1985 Smokeless Tobacco: Never Alcohol Use Standard Drinks/Week Comments No 0 (1 standard drink = 0.6 oz pur e alcohol) Comments No Sex and Gender Information Value Date Recorded Sex Assigned at Not on file Legal Sex Female 9:31 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 Patient verbalized understanding she can follow-up in our office as needed. EMIOLOGY INVESTIGATOR documented in this encounter Plan of Treatment Not on file documented as of this encounter Visit Diagnoses Not on filedocumented in this encounter Care Teams Teletype Operator Relationship Specialty Start Date End Date Luisa Mitchell DO [address] [place], [place] [phone] PCP - General Internal Medicine 08/11/22 Angie Riddle MD [address] [place], [place] [id number] Gynecology 08/19/16 documented as of this encounter
--- OUTSIDE RECORDS SUMMARY | 2024-03-01 05:50 | XMS_ITS | Encounter Summary ---
Author Organization [facility] Address [address] [place] [address] Phone Care Team Providers Care Laborer Steel Handling Name Role Phone nAgie Riddle MD Unavailable [phone] Luisa Mitchell DO Primary Care Provider [phone] Encounter Details Date Type Department Care Team (Late st Contact Info) Description 11/27/2022 Documentation [facility] Surgery [address] 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 Gender Identity Not on file Sexual Orientation Not on file documented as of this encounter Progress Notes * Joy Tom - 11/27/2022 12:20 PM CDT Put new patient packet in mail documented in this encounter Plan of Treatment Not on file documented as of this encounter Visit Diagnoses Not on filedocumented in this encounter Care Teams Laborer Steel Handling Relationship Specialty Start Date End Date Luisa Mitchell DO [address] [place], [place] [id number] PCP - General Internal Medicine 08/11/22 Angie Riddle MD [address] [place] [address] Gynecology 08/19/16 documented as of this encounter
--- OUTSIDE RECORDS SUMMARY | 2024-03-01 05:50 | XMS_ITS | Encounter Summary ---
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 Forwarding to EP to arrange. * Telephone Encounter - Shakira Iyer - 11/08/2023 9:24 AM CDT Lvm with patient to contact office for battery change for ppm. * Telephone Encounter - Yoni Matamoros MD - 11/08/2023 8:54 AM CDT Please reach out to and let her know her pacemaker has now reached SARMAD and will need mohsen scheduled for generator exchange. Previous device was placed by Dr. Cho and I believe so please make arrangements for generator exchange with Dr. Girish Tucker or Dr. Mansfield * Telephone Encounter - Jaycob Mar RN - 11/08/2023 8:42 AM CDT Images from the original note were not included. This patient has reached the recommended replacement time/SARMAD as of October 08, 2023 and the device has reverted to the VVI mode at a rate of 65 beats per minute. documented in this encounter Plan of Treatment Not on file documented as of this encounter Visit Diagnoses Not on filedocumented in this encounter Care Teams Wind Tunnel Engineer Relationship Specialty Start Date End Date Luisa Mitchell DO [address] [place], [place] [phone] PCP - General Internal Medicine 08/11/22 Angie Riddle MD [address] [place] [address] Gynecology 08/19/16 documented as of this encounter
--- OUTSIDE RECORDS SUMMARY | 2024-03-01 05:50 | XMS_ITS | Encounter Summary ---
Author Organization [facility] Address [address] [place] [address] Care Team Providers Care No Bake Molder Name Role Phone Angie Riddle MD Unavailable [phone] Hardy Morgan MD PhD Primary Care Provider + Reason for Visit * Diagnostic Imaging (Routine) - Closed Specialty Diagnoses / Procedures Referred By Viridiana oconnor Referred To Contact Procedures Breast Imaging Screening Outside Reference Miscellaneous, Not In File Referral ID Status Reason Start Date Expiration Date Visits Re quested Visits Authorized [id number] Closed 12/18/2022 01/17/2024 1 1 Encounter Details Date Type Department Care Team (Late st Contact Info) Description 08/29/2021 Ancillary Procedure [facility] Outside Films Social History Tobacco Use Types Packs/Day Years Used Date Smoking Tobacco: Former Cigarettes Q uit: 1985 Smokeless Tobacco: Never Alcohol Use Standard Drinks/Week Comments No 0 (1 standard drink = 0.6 oz pur e alcohol) Comments No Sex and Gender Information Value Date Recorded Sex Assigned at Not on file 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 us Not In File Miscellaneous IMG MAMMO PROCEDURES F inal Result [facility] documented in this encounter Visit Diagnoses Not on filedocumented in this encounter Care Teams No Bake Molder Relationship Specialty Start Date End Date Hardy Morgan MD PhD [address] [facility] [address] [place] [address] PCP - General 12/02/16 08/10/22 Angie Riddle MD [address] [place] [address] Gynecology 08/19/16 documented as of this encounter
--- OUTSIDE RECORDS SUMMARY | 2024-03-01 05:50 | XMS_ITS | Encounter Summary ---
Author Organization [facility] Address [address] [facility] [address] [place] [address] Care Team Providers Care Sales Associate Fishing Name Role Phone Angie Riddle MD Unavailable [phone] Hardy Morgan MD PhD Primary Care Provider + Reason for Visit * Cardiology (Routine) - Closed Specialty Diagnoses / Procedures Referred By Viridiana oconnor Referred To Contact Diagnoses SSS (sick sinus syndrome) (CMS/HCC) (HCC) Procedures DEVICE CHECK - REMOTE Yoni Matamoros MD [address] [facility] [address] [address] Phone: tel: fax: [facility] Referral ID Status Reason Start Date Expiration Date Visits Re quested Visits Authorized [id number] Closed 02/28/2020 03/29/2021 1 1 Encounter Details Date Type Department Care Team (Latest Contact Info) Description 06/30/2021 8:30 AM CDT Ancillary Procedure [facility] Cardiology [address] [facility] [address] [place] [address] SSS (sick sinus syndrome) (CMS/HCC) ([facility]); Pacemaker Social History Tobacco Use Types Packs/Day Years Used Date Smoking Tobacco: Former Cigarettes Q uit: 1985 Smokeless Tobacco: Never Alcohol Use Standard Drinks/Week Comments No 0 (1 standard drink = 0.6 oz pur e alcohol) Comments No Sex and Gender Information Value Date Recorded Sex Assigned at Not on file 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 ??They had a routine ??remote transmission on 06/30/2021. Device implant indications: ??Sick sinus syndrome ?? Interrogation of the patient's device demonstrates the following: Presenting EGM: ??A paced V sensed @ 67 bpm Lead Measurements Right Atrium Right Ventricle Sensitivity (mV) Not done mV 5.6-16.0 mV Impedence (Ohms) 574 ohms 534 ohms Pace Threshold 1.125 V @ 0.4 ms 0.75 V @ 0.4 ms Pacing % 96.5 % 0.4 % Battery Status: ??3.5 years to SARMAD Episodes last 90 days/Comments: AF Roby 5.0 %, the the longest most recent mode switch lasted 41 seconds. His counters have not been reset since July 2020, and most recently has not had LINQ the mode switch episodes. NORMAL DEVICE FUNCTION PROGRAMMED Anti-coagulant(s): ??Pradaxa 150 mg twice daily Anti-arrhythmic(s): ??Cardizem LA 180 mg daily, Toprol-XL 25 mg daily Plan: 1) normal Medtronic Pacemaker evaluation 2) Medtronic remote transmission scheduled in 3 months. Jaycob Mar, RKleverN. us Yoni Matamoros MD [facility] PRO CEDURES Final Result documented in this encounter Visit Diagnoses Diagnosis SSS (sick sinus syndrome) (CMS/HCC) (HCC) Sinoatrial node dysfunction Pacemaker Cardiac pacemaker in situ documented in this encounter Care Teams Sales Associate Fishing Relationship Specialty Start Date End Date Hardy Morgan MD PhD [address] [place] [address] PCP - General 12/02/16 08/10/22 Angie Riddle MD [address] [place] [address] Gynecology 08/19/16 documented as of this encounter
--- OUTSIDE RECORDS SUMMARY | 2024-03-01 05:50 | XMS_ITS | Encounter Summary ---
Author Organization [facility] Address [address] [place] [address] Care Team Providers Care Clark Driver Name Role Phone Angie Riddle MD Unavailable Hardy Morgan MD PhD Primary Care Provider + Reason for Visit * Diagnostic Imaging (Routine) - Closed Specialty Diagnoses / Procedures Referred By Viridiana oconnor Referred To Contact Procedures Breast Imaging Screening Outside Reference Miscellaneous, Not In File Referral ID Status Reason Start Date Expiration Date Visits Re quested Visits Authorized [id number] Closed 12/18/2022 01/17/2024 1 1 Encounter Details Date Type Department Care Team (Late st Contact Info) Description 09/08/2021 Ancillary Procedure [facility] Outside Films Social History Tobacco Use Types Packs/Day Years Used Date Smoking Tobacco: Former Cigarettes Q uit: 1985 Smokeless Tobacco: Never Alcohol Use Standard Drinks/Week Comments No 0 (1 standard drink = 0.6 oz pur e alcohol) Comments No Sex and Gender Information Value Date Recorded Sex Assigned at Not on file 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 us Not In File Miscellaneous IMG MAMMO PROCEDURES F inal Result [facility] documented in this encounter Visit Diagnoses Not on filedocumented in this encounter Care Teams Clark Driver Relationship Specialty Start Date End Date Hardy Morgan MD PhD [address] [facility] [address] [place] [address] PCP - General 12/02/16 08/10/22 Angie Riddle MD [address] [place] [address] Gynecology 08/19/16 documented as of this encounter
--- OUTSIDE RECORDS SUMMARY | 2024-03-01 05:50 | XMS_ITS | Encounter Summary ---
Author Organization [facility] Healthcare Address [address] [place] [address] Care Team Providers Care Civil Engineering Designer Name Role Phone Angie Riddle MD Unavailable [phone] Luisa Mitchell DO Primary Care Provider [phone] Reason for Visit * Reason Onset Date Comments Medical Records Request 02/05/2023 Encounter Details Date Type Department Care Team (Late st Contact Info) Description 02/05/[address] [facility] [address] [place] [address] Maren Kohler RN Medical Records Request Social History Tobacco Use Types Packs/Day Years Used Date Smoking Tobacco: Former Cigarettes Q uit: 1985 Smokeless Tobacco: Never Alcohol Use Standard Drinks/Week Comments No 0 (1 standard drink = 0.6 oz pur e alcohol) Comments No Sex and Gender Information Value Date Recorded Sex Assigned at Not on file Legal Sex Female 9:31 AM SQL SERVER ARCHITECT Gender Identity Not on file Sexual Orientation Not on file documented as of this encounter Miscellaneous Notes * Telephone Encounter - Maren Kohler RN - 02/05/2023 9:18 AM CST [facility] received records request via fax from SAUNDRA Carrasquillo at Dr. Riddle's office. [place] saved request to drive, uploaded to [employer], obtained records, and faxed to SAUNDRA Carrasquillo at Dr. Riddle's office at the number provided [phone]. SERVER ARCHITECT documented in this encounter Plan of Treatment Not on file documented as of this encounter Visit Diagnoses Not on filedocumented in this encounter Care Teams Civil Engineering Designer Relationship Specialty Start Date End Date Luisa Mitchell DO [address] [place], [place] [phone] PCP - General Internal Medicine 08/11/22 Angie Riddle MD [address] [place] [address] Gynecology 08/19/16 documented as of this encounter
--- OUTSIDE RECORDS SUMMARY | 2024-03-01 05:50 | XMS_ITS | Encounter Summary ---
Author Organization [facility] Address [address] [place] [address] Care Team Providers Care Addiction Nurse Name Role Phone Angie Riddle MD Unavailable [phone] Luisa Mitchell DO Primary Care Provider [phone] Reason for Referral * Cardiology (Routine) - Closed Specialty Diagnoses / Procedures Referred By Viridiana oconnor Referred To Contact Diagnoses Pacemaker Procedures DEVICE CHECK - IN OFFICE Yoni Matamoros MD [email or web address] [address] [place] [address] Phone: tel: fax: [facility] Referral ID Status Reason Start Date Expiration Date Visits Re quested Visits Authorized [id number] Closed 08/10/2022 09/09/2023 1 1 Reason for Visit * Reason Comments Atrial Fibrillation Encounter Details Date Type Department Care Team (Late st Contact Info) Description 08/11/2022 11:45 AM CDT Office Visit [facility] Cardiology [address] [place] [address] Yoni Matamoros MD [email or web address] [place] [address] Pacemaker (Primary Dx); SSS (sick sinus syndrome) (CMS/HCC) (HCC); Cardiac pacemaker in situ Social History Tobacco Use Types Packs/Day Years Used Date Smoking Tobacco: Former Cigarettes Q uit: 1985 Smokeless Tobacco: Never Alcohol Use Standard Drinks/Week Comments No 0 (1 standard drink = 0.6 oz pur e alcohol) Comments No Sex and Gender Information Value Date Recorded Sex Assigned at Not on file 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 Gender Identity Not on file Sexual Orientation Not on file documented as of this encounter Last Filed Vital Signs Vital Sign Reading Time Taken Comments Blood Pressure 112/62 08/11/2022 11:47 AM CDT Pulse 64 08/11/2022 11:47 AM CDT Temperature - - Respiratory Rate - - Oxygen Saturation - - Inhaled Oxygen Concentration - - Weight 49.9 kg (110 lb) 08/11/2022 11:47 AM CDT Height 162.6 cm (5' 4 ) 08/11/2022 11:47 AM CDT Body Mass Index 18.88 08/11/2022 11:47 AM CDT documented in this encounter Progress Notes * Yoni Matamoros MD - 08/11/2022 11:45 AM CDT Images from the original note were not included. [facility] Cardiology [facility], [address], [facility] [address] [place] [phone] Cardiology Electrophysiology Jose Ramon Walker, MD Cesar Tucker,, MD Jonathan Garcia, MD Skinny Fitzgerald, MD Nilton Mason, MD Arnold Stout, MD Jacob Infante, DO Antonio Canela, MD Quiana Cifuentes, TARGET MAN Rajendra Nunes, MD Pollo Reynolds, MD Chester Pineda, MD Tomer Manjarrez, DO Yoni Matamoros, MD Madalyn Cutler, TARGET MAN Claudia Diaz, TARGET MAN Cj Kaplan, TARGET MAN Nisa Redd, TARGET MAN Patient Name: Francine Erwin Provider: Ynoi Matamoros MD : 1940 Date of Service: 08/11/2022 Referring: Stephen CHIEF COMPLAINT: Atrial Fibrillation HISTORY OF PRESENT ILLNESS: 82 y.o. female with paroxysmal atrial fibrillation, permanent pacemaker placement On chronic anticoagulation with Pradaxa Interval History Overall doing well. Tolerating Pradaxa well with no bleeding Is quite expensive and she prefers to get it filled via pharmacy in [place] where it is cheaper Had device interrogation today AFib burden slightly higher than last year on 8% occasional palpitations that she does feel but nonbothersome which has been the case in the past Good rate control at rest Had lab work done with PCP recently I reviewed this patient's Allergies and Current Medication List and updated as needed in the medical record. I reviewed this patient's Past Medical History, Social History, and Family History and updated as needed in the medical record. CARDIAC HISTORY: Chronic problems include sick sinus syndrome and permanent pacemaker in 2004. She subsequently had a lead fracture and had a dual-chamber pacemaker revision with Dr. Fitzgerald in 2010. Pacemaker interrogation 06/07/2019 Medtronic dual-chamber pacemaker, Lia 2010 4.5 years to SARMAD 97% RA paced 0.3% RV paced REVIEW OF SYSTEMS Pertinent review of systems negative unless otherwise stated in HPI above. PHYSICAL EXAM: BP 112/62 Pulse 64 Ht 162.6 cm (5' 4 ) Wt 49.9 kg (110 lb) BMI 18.88 kg/m?? General: No apparent distress. Eyes: Sclerae anicteric. Neck: No obvious jugular venous distension seen. Respiratory: No respiratory distress,breathing comfortably no accessory muscle use Musculoskeletal: Grossly normal tone throughout. Neurologic: Grossly nonfocal. No dysarthria. Skin: No rashes seen. Psychiatric: Appropriate affect and interaction. MDM Problems Addressed: ICD-9-CM ICD-10-CM 1. Pacemaker V45.01 Z95.0 DEVICE CHECK - IN OFFICE 2. SSS (sick sinus syndrome) (CMS/HCC) (HCC) 427.81 I49.5 3. Cardiac pacemaker in situ V45.01 Z95.0 Data Reviewed: - reviewed device interrogation low AFib burden around 8% with occasional rate episodes of AFib with RVR up to 120 that are asymptomatic - continue current regimen, - continue Pradaxa for anticoagulation - will get labs from PCP for review ASSESSMENT & PLAN DISCUSSION Diagnoses and all orders for this visit: Paroxysmal atrial fibrillation (CMS/HCC) (Primary) - known paroxysmal AFib - sick sinus/tachy-ann syndrome - proximally 8% AFib burden on interrogation today - overall asymptomatic and well managed though she does feel the palpitations on occasion Plan - continue current dose of metoprolol XL 25 mg daily and diltiazem 180 mg daily - continue Pradaxa for CVA prophylaxis SSS (sick sinus syndrome) (CMS/HCC) Pacemaker - pacemaker interrogated today normal functioning - estimated 2.5 years to SARMAD Matamoros MD [facility] Instrument Shop Supervisor This note was dictated in part using [employer] voice recognition software. Despite careful review of this note, variances in spelling and vocabulary are possible and unintentional. documented in this encounter Plan of Treatment Not on file documented as of this encounter Results * DEVICE CHECK - IN OFFICE (08/11/2022 11:36 AM CDT) Anatomical Region Laterality Modality Other Narrative 08/11/2022 12:54 PM CDT Table formatting from the original result was not included. PM CHECK (IN OFFICE) Patient ID: Francine Erwin is a 82 y.o. female This patient received a Medtronic Pacemaker. ??They had a routine in-office device interrogation on 08/11/22 Device implant indications: ??Sick sinus syndrome ?? Interrogation of the patient's device demonstrates the following: Presenting EGM: ??A paced V sensed @ 65 bpm Underlying rhythm: ??With inhibition of pacing the patient has no underlying escape rhythm Original Device Settings Right Atrium Right Ventricle Sensitivity (mV) 0.35 mV 2.8 mV Pacing Outputs 2.25 V @ 0.4 ms 1.5 V @ 0.4 ms Testing Measurements Right Atrium Right Ventricle Sensitivity (mV) Paced mV 5.6 mV Impedence (Ohms) 574 ohms 540 ohms Pace Threshold 1.125 V @ 0.4 ms 0.75 V @ 0.4 ms Pacing % 94.2 % 0.5 % Battery Status: ??32 months to SARMAD Episodes last 90 days/Comments: AF [place] 8.7 %, there were numerous episodes of atrial fibrillation the longest lasting 26 hours with ventricular rates ranging from 100 to to the 120s. NORMAL DEVICE FUNCTION PROGRAMMED MEDICATIONS: Anti-coagulant(s): ??Pradaxa 150 mg twice daily Anti-arrhythmic(s): ??Toprol-XL 25 mg daily, diltiazem 180 mg daily PLAN: 1) normal Medtronic Pacemaker evaluation 2) Medtronic remote transmission scheduled in 3 months. 3) Programming appropriate for device measurements Jaycob Mar, RN us Yoni Matamoros MD [facility] PRO CEDURES Final Result documented in this encounter Visit Diagnoses Diagnosis Pacemaker- Primary Cardiac pacemaker in situ SSS (sick sinus syndrome) (CMS/HCC) (HCC) Sinoatrial node dysfunction Cardiac pacemaker in situ Cardiac pacemaker in situ- Primary Pacemaker Cardiac pacemaker in situ documented in this encounter Discontinued Medications Medication Sig Discontinue Reason Start Date End Da te atorvastatin (LIPITOR) 20 mg tablet Take 0.5 tablets (10 mg total) by mouth daily Formulary change 08/11/2022 documented as of this encounter Historical Medications * This list may reflect changes made after this encounter. atorvastatin (LIPITOR) 20 mg tablet Take 1 tablet (20 mg total) by mouth daily added in this encounter Care Teams Addiction Nurse Relationship Specialty Start Date End Date Luisa Mitchell DO [address] [place] [address] PCP - General Internal Medicine 08/11/22 Angie Riddle MD [address] [place], [place] [id number] Gynecology 08/19/16 documented as of this encounter
--- OUTSIDE RECORDS SUMMARY | 2024-03-01 05:50 | XMS_ITS | Encounter Summary ---
Author Organization [facility] Address [address] [place] [address] Care Team Providers Care Turner In Name Role Phone Angie Riddle MD Unavailable [phone] Hardy Morgan MD PhD Primary Care Provider + Reason for Visit * Reason Onset Date Comments Pharmacy switch 01/13/2021 Encounter Details Date Type Department Care Team (Late st Contact Info) Description 01/13/2021 Telephone [facility] Cardiology [address] [place] [address] Yoni Matamoros MD [facility] [facility] [address] [place] [address] Pharmacy switch Social History Tobacco Use Types Packs/Day Years Used Date Smoking Tobacco: Former Cigarettes Q uit: 1985 Smokeless Tobacco: Never Alcohol Use Standard Drinks/Week Comments No 0 (1 standard drink = 0.6 oz pur e alcohol) Comments No Sex and Gender Information Value Date Recorded Sex Assigned at Not on file 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 GRATED MARKETING SPECIALIST * Telephone Encounter - David Darnell - 01/13/2021 1:30 PM CST Pt called today wanting to switch the pharmacy for her Pradaxa. Pt wants her script to go to: [facility] [address] [place]: [phone] Having difficulties pulling this up for e-scribe. Not sure it pt needs a hard copy of script sent with signature, and then she sends it out? Can you please assist with this GRATED MARKETING SPECIALIST documented in this encounter Plan of Treatment Not on file documented as of this encounter Visit Diagnoses Not on filedocumented in this encounter Discontinued Medications Medication Sig Discontinue Reason Start Date End Da te dabigatran (Pradaxa) 150 mg capsule Take 1 capsule (150 mg total) by mouth 2 (two) times a day Reorder 07/10/2020 01/14/2021 documented as of this encounter Care Teams Turner In Relationship Specialty Start Date End Date Hardy Morgan MD PhD [address] [facility] [address] [facility] [address] [place] [address] PCP - General 12/02/16 08/10/22 Angie Riddle MD [address] [place] [address] Gynecology 08/19/16 documented as of this encounter
--- OUTSIDE RECORDS SUMMARY | 2024-03-01 05:50 | XMS_ITS | Encounter Summary ---
Author Organization [facility] Address [address] [place] [address] Care Team Providers Care Runway Model Name Role Phone Angie Riddle MD Unavailable [phone] Luisa Mitchell DO Primary Care Provider [phone] Reason for Visit * Diagnostic Imaging (Routine) - Closed Specialty Diagnoses / Procedures Referred By Viridiana oconnor Referred To Contact Procedures Breast Imaging US Outside Reference Miscellaneous, Not In File Referral ID Status Reason Start Date Expiration Date Visits Re quested Visits Authorized [id number] Closed 12/18/2022 01/17/2024 1 1 Encounter Details Date Type Department Care Team (Late st Contact Info) Description 11/24/2022 Ancillary Procedure [facility] Outside Films Social History Tobacco Use Types Packs/Day Years Used Date Smoking Tobacco: Former Cigarettes Q uit: 1985 Smokeless Tobacco: Never Alcohol Use Standard Drinks/Week Comments No 0 (1 standard drink = 0.6 oz pur e alcohol) Comments No Sex and Gender Information Value Date Recorded Sex Assigned at Not on file 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 us Not In File Miscellaneous IMG MAMMO PROCEDURES F inal Result [facility] documented in this encounter Visit Diagnoses Not on filedocumented in this encounter Care Teams Runway Model Relationship Specialty Start Date End Date Luisa Mitchell DO [address] [place] [address] PCP - General Internal Medicine 08/11/22 Angie Riddle MD [address] [place] [address] Gynecology 08/19/16 documented as of this encounter
--- OUTSIDE RECORDS SUMMARY | 2024-03-01 05:50 | XMS_ITS | Encounter Summary ---
Author Organization [facility] Address [address] [place] [address] Phone Care Team Providers Care Sizing End Bander Name Role Phone Angie Riddle MD Unavailable [phone] Luisa Mitchell DO Primary Care Provider [phone] Reason for Referral * Diagnostic Imaging (Routine) - Closed Specialty Diagnoses / Procedures Referred By Contac t Referred To Contact Diagnoses Mass of right breast, unspecified quadrant Procedures US Breast Right Limited Qi Alcala NP Phone: tel: fax: [address] [address] Referral ID Status Reason Start Date Expiration Date Visits Re quested Visits Authorized [id number] Closed 11/27/2022 12/27/2023 1 1 * Diagnostic Imaging (Routine) - Closed Specialty Diagnoses / Procedures Referred By Contac t Referred To Contact Diagnoses Unspecified lump in the right breast, upper outer quadrant Procedures Breast Imaging DX Outside Consult Qi Alcala NP Phone: tel: fax: [facility] Referral ID Status Reason Start Date Expiration Date Visits Re quested Visits Authorized [id number] Closed 11/27/2022 12/27/2023 1 1 Encounter Details Date Type Department Care Team (Late st Contact Info) Description 11/27/2022 Orders Only [facility] Surgery [address] 5th [place] [address] [place] [address] Qi Alcala NP [address] [facility] [address] [place] [address] Mass of right breast, unspecified quadrant (Primary Dx); Other abnormal and inconclusive findings on diagnostic imaging of breast Social History Tobacco Use Types Packs/Day Years Used Date Smoking Tobacco: Former Cigarettes Q uit: 1985 Smokeless Tobacco: Never Alcohol Use Standard Drinks/Week Comments No 0 (1 standard drink = 0.6 oz pur e alcohol) Comments No Sex and Gender Information Value Date Recorded Sex Assigned at Not on file Legal Sex Female 9:31 AM PATTERN SCRATCHER Gender Identity Not on file Sexual Orientation Not on file documented as of this encounter Plan of Treatment Not on file documented as of this encounter Results * US Breast Right Limited (01/04/2023 1:44 PM PATTERN SCRATCHER) Anatomical Region Laterality Modality Breast Right Ultrasound 01/04/2023 2:29 PM PATTERN SCRATCHER Impressions 01/04/2023 2:30 PM PATTERN SCRATCHER No mammographic or sonographic evidence of malignancy in the RIGHT breast. OVERALL FINAL ASSESSMENT: BI-RADS Category 1: Negative. RECOMMENDATION: Annual screening mammography is recommended. Dictated by: Salvador Vaughn M.D. The radiology attending physician has personally reviewed this study, and had reviewed and/or edited this written report and agrees with it. Electronically signed by: Angie Richards M.D. Narrative 01/04/2023 2:30 PM PATTERN SCRATCHER EXAMINATION: RIGHT UNILATERAL DIGITAL DIAGNOSTIC MAMMOGRAM AND [...] Electronically signed by: Angie Richards M.D. Qi Lugo Cari ANDREWS IMG MAMMO PROCEDURES Final Result * Breast Imaging DX Outside Consult (12/18/2022 5:01 PM CDT) Anatomical Region Laterality Modality Breast N/A Mammography 12/21/2022 9:24 AM CDT Impressions 12/21/2022 12:07 PM CDT Questioned asymmetry at mid depth in the right breast on the MLO view is incompletely evaluated in the absence of tomosynthesis examination. ??Reportedly a mass was detected on ultrasound of the RIGHT breast at the 11 o'clock position, 3 cm from the nipple , and felt to correspond to the finding on the mammogram, for which ultrasound-guided biopsy was recommended by the outside facility. ??Repeat RIGHT diagnostic mammography including tomosynthesis (including a spot compression XCCL, MLO, and lateral views of the RIGHT breast), as well as repeat RIGHT breast ultrasound evaluation is recommended. The method of initial detection of finding was 3D screening mammography (Sdbt). OVERALL FINAL ASSESSMENT: BI-RADS Category 0: Incomplete - Need Additional Imaging Evaluation. RECOMMENDATION: Additional imaging - RIGHT diagnostic mammography with spot compression and tomosynthesis. Additional imaging - RIGHT breast ultrasound evaluation. NOTE: The findings, conclusions and recommendations within this report do not replace the initial findings, conclusions and recommendations made at the facility where the study was performed based upon the imaging and clinical condition at that time. ??Review of the prior report and correlation with the clinical history are necessary. The provided images may or may not represent the alturas source data set and thus may contain changes which may lower the sensitivity of the second opinion interpretation. Dictated by: Salvador Vaughn M.D. The radiology attending physician has personally reviewed this study, and had reviewed and/or edited this written report and agrees with it. Electronically signed by: Lizzie Chau M.D. Narrative 12/21/2022 12:07 PM CDT EXAMINATION: REVIEW AND INTERPRETATION OF OUTSIDE IMAGING FACILITY PERFORMING OUTSIDE IMAGING: [facility] EXAM(S) REVIEWED: 1. ??BILATERAL SCREENING MAMMOGRAM, 10/09/2022 2. ??RIGHT UNILATERAL DIAGNOSTIC MAMMOGRAM, 11/24/2022 DATE OF INTERPRETATION: 12/21/2022 HISTORY: 82-year-old woman with abnormal screening and diagnostic mammograms at outside facility. ??Of note, the patient has a history of prior benign left breast needle biopsy. ??No personal or family history of breast cancer. COMPARISON: Multiple prior mammograms dated 09/08/2021, 08/19/2020, and 08/17/2019. BREAST PARENCHYMAL COMPOSITION: The breasts are extremely dense, which lowers the sensitivity of mammography. ?? FINDINGS: BILATERAL SCREENING MAMMOGRAM DATED 10/09/2022: Stable appearance of benign calcifications in the RIGHT breast. Biopsy clip in the left breast, unchanged. ??Absence of tomographic examination limits evaluation of questioned asymmetry in the upper RIGHT breast at mid depth on MLO projections, however within this limitation this finding appears possibly similar over multiple priors. RIGHT UNILATERAL DIAGNOSTIC MAMMOGRAM DATED 11/24/2022: Redemonstrated stable benign-appearing calcifications right breast, unchanged. ??Again seen is a questioned asymmetry in the upper RIGHT breast at mid depth on MLO and spot compression images, incompletely evaluated in the absence of tomosynthesis. ??This area appears likely similar to multiple prior studies on the diagnostic mammogram. Per outside report, diagnostic ultrasound of the right breast demonstrates an isoechoic mass at the 11 o'clock position approximately 3 cm from nipple, measuring 3.9 x 1.1 x 1.1 cm. ??This was felt by the outside facility to respond to the finding on the mammogram. Procedure Note Lizzie Chau MD - 12/21/2022 EXAMINATION: REVIEW AND INTERPRETATION OF OUTSIDE IMAGING FACILITY PERFORMING OUTSIDE IMAGING: [facility] EXAM(S) REVIEWED: 1. BILATERAL SCREENING MAMMOGRAM, 10/09/2022 2. RIGHT UNILATERAL DIAGNOSTIC MAMMOGRAM, 11/24/2022 DATE OF INTERPRETATION: 12/21/2022 HISTORY: 82-year-old woman with abnormal screening and diagnostic mammograms at outside facility. Of note, the patient has a history of prior benign left breast needle biopsy. No personal or family history of breast cancer. COMPARISON: Multiple prior mammograms dated 09/08/2021, 08/19/2020, and 08/17/2019. BREAST PARENCHYMAL COMPOSITION: The breasts are extremely dense, which lowers the sensitivity of mammography. FINDINGS: BILATERAL SCREENING MAMMOGRAM DATED 10/09/2022: Stable appearance of benign calcifications in the RIGHT breast. Biopsy clip in the left breast, unchanged. Absence of tomographic examination limits evaluation of questioned asymmetry in the upper RIGHT breast at mid depth on MLO projections, however within this limitation this finding appears possibly similar over multiple priors. RIGHT UNILATERAL DIAGNOSTIC MAMMOGRAM DATED 11/24/2022: Redemonstrated stable benign-appearing calcifications right breast, unchanged. Again seen is a questioned asymmetry in the upper RIGHT breast at mid depth on MLO and spot compression images, incompletely evaluated in the absence of tomosynthesis. This area appears likely similar to multiple prior studies on the diagnostic mammogram. Per outside report, diagnostic ultrasound of the right breast demonstrates an isoechoic mass at the 11 o'clock position approximately 3 cm from nipple, measuring 3.9 x 1.1 x 1.1 cm. This was felt by the outside facility to respond to the finding on the mammogram. IMPRESSION: Questioned asymmetry at mid depth in the right breast on the MLO view is incompletely evaluated in the absence of tomosynthesis examination. Reportedly a mass was detected on ultrasound of the RIGHT breast at the 11 o'clock position, 3 cm from the nipple , and felt to correspond to the finding on the mammogram, for which ultrasound-guided biopsy was recommended by the outside facility. Repeat RIGHT diagnostic mammography including tomosynthesis (including a spot compression XCCL, MLO, and lateral views of the RIGHT breast), as well as repeat RIGHT breast ultrasound evaluation is recommended. The method of initial detection of finding was 3D screening mammography (Sdbt). OVERALL FINAL ASSESSMENT: BI-RADS Category 0: Incomplete - Need Additional Imaging Evaluation. RECOMMENDATION: Additional imaging - RIGHT diagnostic mammography with spot compression and tomosynthesis. Additional imaging - RIGHT breast ultrasound evaluation. NOTE: The findings, conclusions and recommendations within this report do not replace the initial findings, conclusions and recommendations made at the facility where the study was performed based upon the imaging and clinical condition at that time. Review of the prior report and correlation with the clinical history are necessary. The provided images may or may not represent the alturas source data set and thus may contain changes which may lower the sensitivity of the second opinion interpretation. Dictated by: Salvador Vaughn M.D. The radiology attending physician has personally reviewed this study, and had reviewed and/or edited this written report and agrees with it. Electronically signed by: Lizzie Chau M.D. Qi Alcala EXHAUST EQUIPMENT OPERATOR IMG MAMMO PROCEDURES Final Result documented in this encounter Visit Diagnoses Diagnosis Mass of right breast, unspecified quadrant- Primary Other abnormal and inconclusive findings on diagnostic imaging of breast Mass of right breast, unspecified quadrant documented in this encounter Care Teams Sizing End Bander Relationship Specialty Start Date End Date Luisa Mitchell DO [address] [place] [address] PCP - General Internal Medicine 08/11/22 Angie Ridlde MD [address] [place] [address] Gynecology 08/19/16 documented as of this encounter
--- OUTSIDE RECORDS SUMMARY | 2024-03-01 05:50 | XMS_ITS | Encounter Summary ---
Author Organization [facility] Address [address] [place] [address] Care Team Providers Care Aquatic Performer Name Role Phone Angie Riddle MD Unavailable [phone] Hardy Morgan MD PhD Primary Care Provider + Reason for Visit * Cardiology (Routine) - Closed Specialty Diagnoses / Procedures Referred By Viridiana oconnor Referred To Contact Diagnoses SSS (sick sinus syndrome) (CMS/HCC) (HCC) Procedures DEVICE CHECK - REMOTE Yoni Matamoros MD [address] [facility] [address] [place] [address] Phone: tel: fax: [facility] Referral ID Status Reason Start Date Expiration Date Visits Re quested Visits Authorized [id number] Closed 06/26/2021 12/26/2022 1 1 Encounter Details Date Type Department Care Team (Latest Contact Info) Description 02/16/2022 10:15 AM SECURITIES AND REAL ESTATE DIRECTOR Ancillary Procedure [facility] Cardiology [address] [place] [id number] SSS (sick sinus syndrome) (CMS/HCC) ([facility]); Pacemaker Social History Tobacco Use Types Packs/Day Years Used Date Smoking Tobacco: Former Cigarettes Q uit: 1985 Smokeless Tobacco: Never Alcohol Use Standard Drinks/Week Comments No 0 (1 standard drink = 0.6 oz pur e alcohol) Comments No Sex and Gender Information Value Date Recorded Sex Assigned at Not on file Legal Sex Female 9:31 AM SECURITIES AND REAL ESTATE DIRECTOR Gender Identity Not on file Sexual Orientation Not on file documented as of this encounter Plan of Treatment Not on file documented as of this encounter Procedures Procedure Name Priority Date/Time Associated Diagnosis Comments DEVICE CHECK - REMOTE Routine 02/16/2022 8:27 AM SECURITIES AND REAL ESTATE DIRECTOR SSS (sick sinus syndrome) (CMS/HCC) (HCC) documented in this encounter Results * DEVICE CHECK - REMOTE (02/16/2022 8:27 AM SECURITIES AND REAL ESTATE DIRECTOR) Anatomical Region Laterality Modality Other Narrative 02/16/2022 2:08 PM SECURITIES AND REAL ESTATE DIRECTOR Table formatting from the original result [...] to SARMAD Episodes last 90 days/Comments: AF [place] 5.9 %, longest duration of 17 hours [...] appropriate for device measurements Carol Yuan, RN Yoni Matamoros MD [facility] PRO CEDURES Final Result documented in this encounter Visit Diagnoses Diagnosis SSS (sick sinus syndrome) (CMS/HCC) ([facility]) Sinoatrial node dysfunction Pacemaker Cardiac pacemaker in situ documented in this encounter Care Teams Aquatic Performer Relationship Specialty Start Date End Date Hardy Morgan MD PhD [address] [facility] [address] [place] [address] PCP - General 12/02/16 08/10/22 Angie Riddle MD [address] [place] [address] Gynecology 08/19/16 documented as of this encounter
--- OUTSIDE RECORDS SUMMARY | 2024-03-01 05:50 | XMS_ITS | Encounter Summary ---
Author Organization [facility] Address [address] [place] [address] Care Team Providers Care Kiln Furniture Saw Tender Name Role Phone Angie Riddle MD Unavailable [phone] Hardy Morgan MD PhD Primary Care Provider + Reason for Visit * Cardiology (Routine) - Closed Specialty Diagnoses / Procedures Referred By Viridiana oconnor Referred To Contact Diagnoses SSS (sick sinus syndrome) (CMS/HCC) (HCC) Procedures DEVICE CHECK - REMOTE Yoni Matamoros MD [address] [facility] [address] [address] Phone: tel: fax: [facility] Referral ID Status Reason Start Date Expiration Date Visits Re quested Visits Authorized [id number] Closed 06/26/2021 12/26/2022 1 1 Encounter Details Date Type Department Care Team (Latest Contact Info) Description 05/18/2022 9:45 AM CDT Ancillary Procedure [facility] Medical [facility] Cardiology [address] [place] [address] SSS (sick sinus syndrome) (CMS/HCC) ([facility]); Pacemaker Social History Tobacco Use Types Packs/Day Years Used Date Smoking Tobacco: Former Cigarettes Q uit: 1985 Smokeless Tobacco: Never Alcohol Use Standard Drinks/Week Comments No 0 (1 standard drink = 0.6 oz pur e alcohol) Comments No Sex and Gender Information Value Date Recorded Sex Assigned at Not on file Legal Sex Female 9:31 AM CAR FERRY MASTER Gender Identity Not on file Sexual Orientation Not on file documented as of this encounter Plan of Treatment Not on file documented as of this encounter Procedures Procedure Name Priority Date/Time Associated Diagnosis Comments DEVICE CHECK - REMOTE Routine 05/18/2022 9:04 AM CDT SSS (sick sinus syndrome) (CMS/HCC) (HCC) documented in this encounter Results * DEVICE CHECK - REMOTE (05/18/2022 9:04 [...] to SARMAD Episodes last 90 days/Comments: AF [place] 6.6 %, current episode currently in progress [...] Diagnoses Diagnosis SSS (sick sinus syndrome) (CMS/HCC) ([facility]) Sinoatrial node dysfunction Pacemaker Cardiac pacemaker in situ documented in this encounter Care Teams Kiln Furniture Saw Tender Relationship Specialty Start Date End Date Hardy Morgan MD PhD [address] [facility] [place] [address] PCP - General 12/02/16 08/10/22 Angie Riddle MD [address] [place] [address] Gynecology 08/19/16 documented as of this encounter
--- OUTSIDE RECORDS SUMMARY | 2024-03-01 05:50 | XMS_ITS | Encounter Summary ---
Author Organization [facility] Address [address] [place] [address] Care Team Providers Care Truck Rental Service Attendant Name Role Phone Angie Riddle MD Unavailable [phone] Luisa Mitchell DO Primary Care Provider [phone] Reason for Visit * Cardiology (Routine) - Closed Specialty Diagnoses / Procedures Referred By Viridiana oconnor Referred To Contact Diagnoses SSS (sick sinus syndrome) (CMS/HCC) ([facility]) Procedures DEVICE CHECK - REMOTE Yoni Matamoros MD [address] [facility] [address], [place] [address] Phone: tel: fax: Referral ID Status Reason Start Date Expiration Date Visits Re quested Visits Authorized [id number] Closed 01/25/2023 07/25/2024 1 1 Encounter Details Date Type Department Care Team (Latest Contact Info) Description 11/08/2023 9:00 AM CDT Ancillary Procedure [facility] Cardiology [address], [place] [address] Pacemaker (Primary Dx); SSS (sick [...] on file Legal Sex Female 9:31 AM CARPENTRY SUPERVISOR Gender Identity Not on file Sexual Orientation Not on file documented as of this encounter Plan of Treatment Not on file documented as of this encounter Procedures Procedure Name Priority Date/Time Associated Diagnosis Comments DEVICE CHECK - REMOTE Routine 11/08/2023 7:50 AM CDT SSS (sick sinus syndrome) (CMS/HCC) [...] 3) Programming appropriate for device measurements Jaycob M. Biermann, RN us Yoni Matamoros MD CV CARDIAC SERVICES PRO CEDURES Final Result documented in this encounter Visit Diagnoses Diagnosis Pacemaker- Primary Cardiac pacemaker in situ SSS (sick sinus syndrome) (CMS/HCC) (HCC) Sinoatrial node dysfunction documented in this encounter Care Teams Truck Rental Service Attendant Relationship Specialty Start Date End Date Luisa Mitchell DO [address] [place], [place] [id number] PCP - General Internal Medicine 08/11/22 Angie Riddle MD [address] [place] [address] Gynecology 08/19/16 documented as of this encounter
--- OUTSIDE RECORDS SUMMARY | 2024-03-01 05:50 | XMS_ITS | Encounter Summary ---
Author Organization [facility] Healthcare Address [address] [place] [address] Care Team Providers Care Ore Crushing Dust Collector Name Role Phone Angie Riddle MD Unavailable [phone] Luisa Mitchell DO Primary Care Provider [phone] Reason for Visit * Cardiology (Routine) - Closed Specialty Diagnoses / Procedures Referred By Viridiana oconnor Referred To Contact Diagnoses SSS (sick sinus syndrome) (CMS/HCC) ([facility]) Procedures DEVICE CHECK - REMOTE Yoni Matamoros MD [address] [facility] [address], [place] [address] Phone: tel: fax: Referral ID Status Reason Start Date Expiration Date Visits Re quested Visits Authorized [id number] Closed 01/25/2023 07/25/2024 1 1 Encounter Details Date Type Department Care Team (Latest Contact Info) Description 08/02/2023 9:15 AM CDT Ancillary Procedure [facility] Cardiology [address] [facility] [facility] [address], [place] [address] Pacemaker (Primary Dx); SSS (sick [...] on file Legal Sex Female 9:31 AM DEVELOPMENT WRITER Gender Identity Not on file Sexual Orientation Not on file documented as of this encounter Plan of Treatment Not on file documented as of this encounter Procedures Procedure Name Priority Date/Time Associated Diagnosis Comments DEVICE CHECK - REMOTE Routine 08/02/2023 7:51 AM CDT SSS (sick sinus syndrome) (CMS/HCC) (HCC) documented in this encounter Results * DEVICE CHECK - REMOTE (08/02/2023 7:51 [...] to SARMAD Episodes last 90 days/Comments: AF [place] 21.5 %, longest duration currently in progress [...] appropriate for device measurements Carol Delanty, RN us Yoni Matamoros MD CV CARDIAC SERVICES PRO CEDURES Final Result documented in this encounter Visit Diagnoses Diagnosis Pacemaker- Primary Cardiac pacemaker in situ SSS (sick sinus syndrome) (CMS/HCC) (HCC) Sinoatrial node dysfunction documented in this encounter Care Teams Ore Crushing Dust Collector Relationship Specialty Start Date End Date Luisa Mitchell DO [address] [place], [place] [id number] PCP - General Internal Medicine 08/11/22 Angie Riddle MD [address] [place] [address] Gynecology 08/19/16 documented as of this encounter
--- OUTSIDE RECORDS SUMMARY | 2024-03-01 05:50 | XMS_ITS | Encounter Summary ---
Author Organization [facility] Address [address] [place] [address] Phone Care Team Providers Care Edge Molder Name Role Phone Angie Riddle MD Unavailable [phone] Luisa Mitchell DO Primary Care Provider [phone] Encounter Details Date Type Department Care Team (Late st Contact Info) Description 11/27/2022 Telephone [facility] Surgery [address] [facility] 5th [place] [address] [place] [address] Joy Tom Social History Tobacco Use Types Packs/Day Years Used Date Smoking Tobacco: Former Cigarettes Q uit: 1985 Smokeless Tobacco: Never Alcohol Use Standard Drinks/Week Comments No 0 (1 standard drink = 0.6 oz pur e alcohol) Comments No Sex and Gender Information Value Date Recorded Sex Assigned at Not on file Legal Sex Female 9:31 AM HEALTH TYPE TECHNICIAN Gender Identity Not on file Sexual Orientation Not on file documented as of this encounter Miscellaneous Notes * Telephone Encounter - Joy Tom - 11/27/2022 12:07 PM CDT Called patient regarding referral to see one of our providers in the office. Advise patient she will receive a new patient packet by mail documented in this encounter Plan of Treatment Not on file documented as of this encounter Visit Diagnoses Not on filedocumented in this encounter Care Teams Edge Molder Relationship Specialty Start Date End Date Luisa Mitchell DO [address] [place], [place] [id number] PCP - General Internal Medicine 08/11/22 Angie Riddle MD [address] [place], [place] [id number] Gynecology 08/19/16 documented as of this encounter
--- OUTSIDE RECORDS SUMMARY | 2024-03-01 05:50 | XMS_ITS | Encounter Summary ---
Author Organization [facility] Address [address] [place] [address] Phone Care Team Providers Care Hl7 Interface Developer Name Role Phone Angie Riddle MD Unavailable [phone] Luisa Mitchell DO Primary Care Provider [phone] Encounter Details Date Type Department Care Team (Late st Contact Info) Description 12/15/2022 Telephone [facility] [address] [facility] 5th [place] [address] [place] [address] Edna Garcia Social History Tobacco Use Types Packs/Day Years Used Date Smoking Tobacco: Former Cigarettes Q uit: 1985 Smokeless Tobacco: Never Alcohol Use Standard Drinks/Week Comments No 0 (1 standard drink = 0.6 oz pur e alcohol) Comments No Sex and Gender Information Value Date Recorded Sex Assigned at Not on file Legal Sex Female 9:31 AM SUPERVISOR LOGGING Gender Identity Not on file Sexual Orientation Not on file documented as of this encounter Miscellaneous Notes * Telephone Encounter - Edna Garcia - 12/15/2022 2:17 PM CDT Patient called the scheduling hub and stated she seen Qi recently and was still waiting on results for testing. Patient is wanting a call back with her results. I will route this message to Qi. documented in this encounter Plan of Treatment Not on file documented as of this encounter Visit Diagnoses Not on filedocumented in this encounter Care Teams Hl7 Interface Developer Relationship Specialty Start Date End Date Luisa Mitchell DO [address] [place], [place] [id number] PCP - General Internal Medicine 08/11/22 Angie Riddle MD [address] [place] [address] Gynecology 08/19/16 documented as of this encounter
--- OUTSIDE RECORDS SUMMARY | 2024-03-01 05:50 | XMS_ITS | Encounter Summary ---
Author Organization [facility] Healthcare Address [address] [place] [address] Care Team Providers Care Audit Reviewer Name Role Phone Angie Riddle MD Unavailable [phone] Luisa Mitchell DO Primary Care Provider [phone] Reason for Referral * Diagnostic Imaging (Routine) - Closed Specialty Diagnoses / Procedures Referred By Viridiana oconnor Referred To Contact Diagnoses Mass of right breast, unspecified quadrant Procedures US Breast Right Limited Qi Alcala NP Phone: tel: fax: [address] [phone] Referral ID Status Reason Start Date Expiration Date Visits Re quested Visits Authorized [id number] Closed 11/27/2022 12/27/2023 1 1 E BROKER Reason for Visit * Diagnostic Imaging (Routine) - Closed Specialty Diagnoses / Procedures Referred By Viridiana oconnor Referred To Contact Diagnoses Mass of right breast, unspecified quadrant Procedures US Breast Right Limited Qi Alcala NP Phone: tel: fax: [address] [address] Referral ID Status Reason Start Date Expiration Date Visits Re quested Visits Authorized [id number] Closed 11/27/2022 12/27/2023 1 1 Encounter Details Date Type Department Care Team (Latest Contact Info) Description 01/04/2023 12:30 PM LEASE BROKER - 01/04/2023 11:59 PM LEASE BROKER Hospital Encounter [facility] [address] [place] [address] Mass of right breast, unspecified quadrant Discharge Disposition: Discharge to home or self care Social History Tobacco Use Types Packs/Day Years Used Date Smoking Tobacco: Former Cigarettes Q uit: 1985 Smokeless Tobacco: Never Alcohol Use Standard Drinks/Week Comments No 0 (1 standard drink = 0.6 oz pur e alcohol) Comments No Sex and Gender Information Value Date Recorded Sex Assigned at Not on file Legal Sex Female 9:31 AM LEASE BROKER Gender Identity Not on file Sexual Orientation [...] Procedure Name Priority Date/Time Associated Diagnosis Comments US BREAST RIGHT LIMITED Schedule Routine, Read Routine (OP Routine) 01/04/2023 1:44 PM LEASE BROKER Mass of right breast, unspecified quadrant documented in this encounter Results * US Breast Right Limited (01/04/2023 1:44 PM LEASE BROKER) Anatomical Region Laterality Modality Breast Right Ultrasound 01/04/2023 2:29 PM LEASE BROKER Impressions 01/04/2023 2:30 PM LEASE BROKER No mammographic or sonographic evidence of malignancy in the RIGHT breast. OVERALL FINAL ASSESSMENT: BI-RADS Category 1: Negative. RECOMMENDATION: Annual screening mammography is recommended. Dictated by: Salvador Vaughn M.D. The radiology attending physician has personally reviewed this study, and had reviewed and/or edited this written report and agrees with it. Electronically signed by: Angie Richards M.D. Narrative 01/04/2023 2:30 PM LEASE BROKER EXAMINATION: RIGHT UNILATERAL DIGITAL DIAGNOSTIC MAMMOGRAM AND [...] it. Electronically signed by: Angie Richards M.D. us Qi Alcala NP IMG MAMMO PROCEDURES Final Result documented in this encounter Visit Diagnoses Diagnosis Mass of right breast, unspecified quadrant documented in this encounter Care Teams Audit Reviewer Relationship Specialty Start Date End Date Luisa Mitchell DO [address] [place], [place] [id number] PCP - General Internal Medicine 08/11/22 Angie Riddle MD [address] [place] [address] Gynecology 08/19/16 documented as of this encounter
--- OUTSIDE RECORDS SUMMARY | 2024-03-01 05:50 | XMS_ITS | Encounter Summary ---
Author Organization [facility] Address [address] [facility] [address] [place] [address] Care Team Providers Care Home Care Associate Name Role Phone Angie Riddle MD Unavailable [phone] Hardy Morgan MD PhD Primary Care Provider + Reason for Visit * Cardiology (Routine) - Closed Specialty Diagnoses / Procedures Referred By Viridiana oconnor Referred To Contact Diagnoses SSS (sick sinus syndrome) (CMS/HCC) (HCC) Procedures DEVICE CHECK - REMOTE Yoni Matamoros MD [address] [facility] [address], [place] [address] Phone: tel: fax: [facility] Referral ID Status Reason Start Date Expiration Date Visits Re quested Visits Authorized [id number] Closed 06/26/2021 12/26/2022 1 1 Encounter Details Date Type Department Care Team (Latest Contact Info) Description 11/17/2021 7:15 AM CDT Ancillary Procedure [facility] Cardiology [address] [facility] [address] [place] [address] SSS (sick sinus syndrome) (CMS/HCC) ([facility]); Pacemaker Social History Tobacco Use Types Packs/Day Years Used Date Smoking Tobacco: Former Cigarettes Q uit: 1985 Smokeless Tobacco: Never Alcohol Use Standard Drinks/Week Comments No 0 (1 standard drink = 0.6 oz pur e alcohol) Comments No Sex and Gender Information Value Date Recorded Sex Assigned at Not on file Legal Sex Female 9:31 AM ZINC SKIMMER Gender Identity Not on file Sexual Orientation Not on file documented as of this encounter Plan of Treatment Not on file documented as of this encounter Procedures Procedure Name Priority Date/Time Associated Diagnosis Comments DEVICE CHECK - REMOTE Routine 11/17/2021 7:42 AM CDT SSS (sick sinus syndrome) (CMS/HCC) (HCC) documented in this encounter Results * DEVICE CHECK - REMOTE (11/17/2021 7:42 [...] to SARMAD Episodes last 90 days/Comments: AF [place] 3.8 %, longest duration 14 hours and [...] transmission scheduled in 3 months. Skyler Yuan RKleverN. Yoni Matamoros MD [facility] PRO CEDURES Final Result documented in this encounter Visit Diagnoses Diagnosis SSS (sick sinus syndrome) (CMS/HCC) (HCC) Sinoatrial node dysfunction Pacemaker Cardiac pacemaker in situ documented in this encounter Care Teams Home Care Associate Relationship Specialty Start Date End Date Hardy Morgan MD PhD [address] [facility] [address] [place] [address] PCP - General 12/02/16 08/10/22 Angie Riddle MD [address] [place] [address] Gynecology 08/19/16 documented as of this encounter
--- OUTSIDE RECORDS SUMMARY | 2024-03-01 05:50 | XMS_ITS | Encounter Summary ---
Author Organization [facility] Healthcare Address [address] [place] [address] Care Team Providers Care Scutcher Tender Name Role Phone Angie Riddle MD Unavailable Luisa Mitchell DO Primary Care Provider [phone] Reason for Visit * Diagnostic Imaging (Routine) - Closed Specialty Diagnoses / Procedures Referred By Viridiana oconnor Referred To Contact Procedures Breast Imaging Diagnostic Outside Reference Miscellaneous, Not In File Referral ID Status Reason Start Date Expiration Date Visits Re quested Visits Authorized [id number] Closed 12/18/2022 01/17/2024 1 1 Encounter Details Date Type Department Care Team (Late Contact Info) Description 11/24/2022 12:05 AM CDT Ancillary Procedure [facility] Outside Films Social History Tobacco Use Types Packs/Day Years Used Date Smoking Tobacco: Former Cigarettes Q uit: 1985 Smokeless Tobacco: Never Alcohol Use Standard Drinks/Week Comments No 0 (1 standard drink = 0.6 oz pur e alcohol) Comments No Sex and Gender Information Value Date Recorded Sex Assigned at Not on file Legal Sex Female 9:31 AM ASSEMBLER SURGICAL GARMENT Gender Identity Not on file Sexual Orientation Not on file documented as of this encounter Plan of Treatment Not on file documented as of this encounter Procedures Procedure Name Priority Date/Time Associated Diagnosis Comments BREAST IMAGING MG DIAGNOSTIC OUTSIDE REFERENCE Routine 11/24/2022 12:05 AM CDT documented in this encounter Results * Breast Imaging Diagnostic Outside Reference (11/24/2022 12:05 AM CDT) Narrative [facility] - 12/18/2022 11:17 AM CDT This order has been auto-finalized and does not contain a result. us Not In File Miscellaneous IMG MAMMO PROCEDURES F inal Result [facility] documented in this encounter Visit Diagnoses Not on filedocumented in this encounter Care Teams Scutcher Tender Relationship Specialty Start Date End Date Luisa Mitchell DO [address] [place], [place] [phone] PCP - General Internal Medicine 08/11/22 Angie Riddle MD [address] [place] [address] Gynecology 08/19/16 documented as of this encounter
--- OUTSIDE RECORDS SUMMARY | 2024-03-01 05:50 | XMS_ITS | Encounter Summary ---
Author Organization [facility] Address [address] [place] [address] Care Team Providers Care Telecommunications Linesworker Name Role Phone Angie Riddle MD Unavailable [phone] Luisa Mitchell DO Primary Care Provider [phone] Reason for Referral * Diagnostic Imaging (Routine) - Closed Specialty Diagnoses / Procedures Referred By Viridiana oconnor Referred To Contact Diagnoses Unspecified lump in the right breast, upper outer quadrant Procedures Breast Imaging DX Outside Consult Qi Alcala NP Phone: tel: fax: [facility] Referral ID Status Reason Start Date Expiration Date Visits Re quested Visits Authorized [id number] Closed 11/27/2022 12/27/2023 1 1 Reason for Visit * Diagnostic Imaging (Routine) - Closed Specialty Diagnoses / Procedures Referred By Viridiana oconnor Referred To Contact Diagnoses Unspecified lump in the right breast, upper outer quadrant Procedures Breast Imaging DX Outside Consult Qi Alcala NP Phone: tel: fax: [facility] Referral ID Status Reason Start Date Expiration Date Visits Re quested Visits Authorized [id number] Closed 11/27/2022 12/27/2023 1 1 Encounter Details Date Type Department Care Team (Latest Contact Info) Description 12/18/2022 5:00 PM CDT - 12/18/2022 11:59 PM CDT Hospital Encounter [facility] [address] [place] [address] Discharge Disposition: Discharge to home or self care Social History Tobacco Use Types Packs/Day Years Used Date Smoking Tobacco: Former Cigarettes Q uit: 1984 Smokeless Tobacco: Never Alcohol Use Standard Drinks/Week Comments No 0 (1 standard drink = 0.6 oz pur e alcohol) Comments No Sex and Gender Information Value Date Recorded Sex Assigned at Not on file Legal Sex Female 9:31 AM CARPENTER MAINTENANCE Gender Identity Not on file Sexual Orientation [...] Diagnosis Comments BREAST IMAGING MG DIAGNOSTIC OUTSIDE CONSULT Routine 12/18/2022 5:01 PM CDT documented in this encounter Results * Breast Imaging DX Outside Consult (12/18/2022 [...] images may or may not represent the [place] source data set and thus may contain [...] OF OUTSIDE IMAGING FACILITY PERFORMING OUTSIDE IMAGING: [facility] EXAM(S) REVIEWED: 1. ??BILATERAL SCREENING MAMMOGRAM, 10/09/2022 [...] OF OUTSIDE IMAGING FACILITY PERFORMING OUTSIDE IMAGING: [facility] EXAM(S) REVIEWED: 1. BILATERAL SCREENING MAMMOGRAM, 10/09/2022 [...] images may or may not represent the [place] source data set and thus may contain changes which may lower the sensitivity of the second opinion interpretation. Dictated by: Salvador Vaughn M.D. The radiology attending physician has personally reviewed this study, and had reviewed and/or edited this written report and agrees with it. Electronically signed by: Lizzie Chau M.D. Qi Alcala CLINICAL LABORATORY MANAGER IMG MAMMO PROCEDURES Final Result documented in this encounter Visit Diagnoses Not on filedocumented in this encounter Care Teams Telecommunications Linesworker Relationship Specialty Start Date End Date Luisa Mitchell DO [address] [place], [place] [id number] PCP - General Internal Medicine 08/11/22 Angie Riddle MD [address] [place] [address] Gynecology 08/19/16 documented as of this encounter
--- OUTSIDE RECORDS SUMMARY | 2024-03-01 05:50 | XMS_ITS | Encounter Summary ---
Author Organization [facility] Healthcare Address [address] [place] [address] Care Team Providers Care Supervisor Of Research Name Role Phone Angie Riddle MD Unavailable [phone] Luisa Mitchell DO Primary Care Provider Reason for Referral * MRI/CAT/PET Scan (Routine) - Closed Specialty Diagnoses / Procedures Referred By Lindseyac elvin Referred To Contact Radiology Diagnoses Anterograde amnesia Procedures CT Head W Contrast Luisa Mitchell DO [address] [facility] [address] Phone: tel: fax: [address] [address] Referral ID Status Reason Start Date Expiration Date Visits Re quested Visits Authorized [id number] Closed 08/11/2023 09/09/2024 1 1 Reason for Visit * MRI/CAT/PET Scan (Routine) - Closed Specialty Diagnoses / Procedures Referred By Contgerri oconnor Referred To Contact Radiology Diagnoses Anterograde amnesia Procedures CT Head W Contrast Luisa Mitchell DO [address] [address] Phone: tel: fax: [address] [phone] Referral ID Status Reason Start Date Expiration Date Visits Re quested Visits Authorized [id number] Closed 08/11/2023 09/09/2024 1 1 Encounter Details Date Type Department Care Team (Latest Contact Info) Description 08/19/2023 11:05 AM CDT - 08/19/2023 11:59 PM CDT Hospital Encounter [facility] [id number] [place] [address] Anterograde amnesia Discharge Disposition: Discharge to home or self [...] on file 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 Gender Identity Not on file Sexual Orientation [...] a day 180 capsule 2 03/25/2023 12/28/2023 diltiazem LA (CARDIZEM LA) 180 mg 24 hr tablet take 1 tablet by oral route every day 0 0 07/21/2013 08/24/2023 meloxicam (MOBIC) 15 mg tablet take 1 tablet by oral route every day as needed 0 0 07/21/2013 11/12/2023 metoprolol XL (TOPROL-XL) 50 mg extended [...] Procedure Name Priority Date/Time Associated Diagnosis Comments CT HEAD W CONTRAST Schedule Routine, Read Routine (OP Routine) 08/19/2023 11:46 AM CDT Anterograde amnesia documented in this encounter Results * CT Head W Contrast (08/19/2023 11:46 AM CDT) Anatomical Region Laterality Modality Head and Neck N/A Computed Tomogra phy 08/19/2023 11:5 0 AM CDT Impressions 08/19/2023 11:[address] CDT Normal head CT with contrast. Electronically signed by: Louie Fontaine M.D. Narrative 08/19/2023 11:50 AM CDT EXAMINATION: Head CT with contrast HISTORY: Amnesia 83-year-old woman. TECHNIQUE: CT of the brain was performed with images acquired from skull base to vertex after the uneventful administration of intravenous contrast. Contrast information: 69 mL Optiray-350 COMPARISON: None available. FINDINGS: Topogram demonstrates no lytic lesions or fractures. ??Cervical spondylosis. ??There is no acute intracranial hemorrhage. Ventricle size upper limits of normal given the patient's age.. No mass effect or midline shift is present. The rowe-white matter differentiation is normal. The visualized portions of the orbits are normal. The visualized portions of the mastoids are normal. The visualized portions of the paranasal sinuses are normal. No fractures are identified. There are no areas of abnormal contrast enhancement. Procedure Note Louie Fontaine MD - 08/19/2023 EXAMINATION: Head CT with contrast HISTORY: Amnesia 83-year-old woman. TECHNIQUE: CT of the brain was performed with images acquired from skull base to vertex after the uneventful administration of intravenous contrast. Contrast information: 69 mL Optiray-350 COMPARISON: None available. FINDINGS: Topogram demonstrates no lytic lesions or fractures. Cervical spondylosis. There is no acute intracranial hemorrhage. Ventricle size upper limits of normal given the patient's age.. No mass effect or midline shift is present. The rowe-white matter differentiation is normal. The visualized portions of the orbits are normal. The visualized portions of the mastoids are normal. The visualized portions of the paranasal sinuses are normal. No fractures are identified. There are no areas of abnormal contrast enhancement. IMPRESSION: Normal head CT with contrast. Electronically signed by: Louie Fontaine M.D. Luisa Mitchell DO IMG CT PROCEDURES Final Result documented in this encounter Visit Diagnoses Diagnosis Anterograde amnesia Memory loss documented in this encounter Administered Medications Inactive Administered Medications - up to 3 most recent administrations Medication Order MAR Action Action Date Dose Rate Site ioversoL (OPTIRAY 350) syringe 75 mL 75 mL, intravenous, Once in imaging, contrast, Starting on Clari 08/19/23 at 1137, For 1 dose Contrast Given 08/19/2023 11:40 AM CDT 69 mL documented in this encounter Orders Medications Ordered That Renzo ht Not Have Been Administered Count Last Ordered Date First Ordered Date ioversoL (OPTIRAY 350) syringe 75 mL 1 07/31 documented in this encounter Care Teams Supervisor Of Research Relationship Specialty Start Date End Date Luisa Mitchell DO [address] [place] [address] PCP - General Internal Medicine 08/11/22 Angie Riddle MD [address] [place] [address] Gynecology 08/19/16 documented as of this encounter
--- OUTSIDE RECORDS SUMMARY | 2024-03-01 05:50 | XMS_ITS | Encounter Summary ---
Author Organization [facility] Healthcare Address [address] [place] [address] Care Team Providers Care Double Needle Operator Name Role Phone Angie Riddle MD Unavailable [phone] Luias Mitchell DO Primary Care Provider [phone] Reason for Visit * Reason Comments Atrial Fibrillation 1 year f/u Encounter Details Date Type Department Care Team (Late st Contact Info) Description 08/24/2023 11:45 AM CDT Office Visit 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 Gender Identity Not on file Sexual Orientation Not on file documented as of this encounter Last Filed Vital Signs Vital Sign Reading Time Taken Comments Blood Pressure 139/79 08/24/2023 11:38 AM CDT Pulse 66 08/24/2023 11:38 AM CDT Temperature - - Respiratory Rate - - Oxygen Saturation 98% 08/24/2023 11:38 AM CDT Inhaled Oxygen Concentration - - Weight 52.6 kg (116 lb) 08/24/2023 11:38 AM CDT Height 157.5 cm (5' 2 ) 08/24/2023 11:38 AM CDT Body Mass Index 21.22 08/24/2023 11:38 AM CDT documented in this encounter Progress Notes * Yoni Matamoros MD - 08/24/2023 11:45 AM CDT Images from the original note were not included. [facility], [address] [place], [place], [address] [facility], [place] [address] Cardiology Electrophysiology Jose Ramon Walker, MD Cesar Tucker,, MD Jonathan Garcia, MD Arley Mansfield, MD Nilton Mason, MD Arnold Stout, MD Antonio Canela, MD Rajendra Nunes, MD Cristhian Murry, UX CONSULTANT Pollo Reynolds, MD Erika Yu, UX CONSULTANT Chester iPneda, MD Quiana Cifuentes, METAL AND PLASTIC HEATER Yoni Matamoros, MD Madalyn Cutler, JULIANA Diaz, METAL AND PLASTIC HEATER Nisa Redd, METAL AND PLASTIC HEATER Jonathan Foster, PA Patient Name: Francine Erwin Provider: Yoni Matamoros MD : 1940 Date of Service: 08/24/2023 Referring: Stephen CHIEF COMPLAINT: No chief complaint on file. HISTORY OF PRESENT ILLNESS: 83 y.o. female with paroxysmal atrial fibrillation, permanent pacemaker placement On chronic anticoagulation with Pradaxa Interval History Feeling well without symptoms No bleeding Recent remote, 4 months to SARMAD 21% AFib burden I reviewed this patient's Allergies and Current [...] otherwise stated in HPI above. PHYSICAL EXAM: There were no vitals taken for this visit. General: No apparent distress. Eyes: Sclerae anicteric. Neck: No obvious jugular venous distension seen. Respiratory: No respiratory distress,breathing comfortably no accessory muscle use Musculoskeletal: Grossly normal tone throughout. Neurologic: Grossly nonfocal. No dysarthria. Skin: No rashes seen. Psychiatric: Appropriate affect and interaction. MDM Problems Addressed: No diagnosis found. Data Reviewed: Reviewed epic and care everywhere for pertinent interval history. Reviewed interval labs: No results found for: LDLCALC , TRIG , HDL No results found for: LDL Lab Results Component Value Date POCLDL 80 04/18/2018 No results found for: SODIUM , POTASSIUM , CREATININE No results found for: HGB , PLT No results found for: HGBA1C ASSESSMENT & PLAN DISCUSSION Diagnoses and all orders for this visit: Paroxysmal atrial fibrillation (CMS/HCC) (Primary) - known paroxysmal AFib - sick sinus/tachy-ann syndrome - overall asymptomatic and well managed though she does feel the palpitations on occasion - AFib burden has increased on pacemaker but asymptomatic Plan - continue current dose of metoprolol XL 25 mg daily and diltiazem 180 mg daily - continue Pradaxa for CVA prophylaxis SSS (sick sinus syndrome) (CMS/HCC) Pacemaker - pacemaker interrogated today normal functioning - only 4 months to SARMAD - discussed the need for generator exchange sometime this fall Yoni Matamoros MD [facility] Sign Shop Supervisor This note was dictated in part using [employer] voice recognition software. Despite careful review of this note, variances in spelling and vocabulary are possible and unintentional. documented in this encounter Plan of Treatment Not on file documented as of this encounter Visit Diagnoses Diagnosis Paroxysmal atrial fibrillation (CMS/HCC) (HCC)- Primary Atrial fibrillation SSS (sick sinus syndrome) (CMS/HCC) (HCC) Sinoatrial node dysfunction Pacemaker Cardiac pacemaker in situ documented in this encounter Discontinued Medications Medication Sig Discontinue Reason Start Date End Da te diltiazem LA (CARDIZEM LA) 180 mg 24 hr tablet take 1 tablet by oral route every day 07/21/2013 08/24/2023 documented as of this encounter Historical Medications * This list may reflect changes made after this encounter. dilTIAZem CD 180 mg 24 hr capsule Take by mouth daily 08/01/2023 added in this encounter Care Teams Double Needle Operator Relationship Specialty Start Date End Date Luisa Mitchell DO [address] [place], [place] [id number] PCP - General Internal Medicine 08/11/22 Angie Riddle MD [address] [place], [place] [id number] Gynecology 08/19/16 documented as of this encounter
--- OUTSIDE RECORDS SUMMARY | 2024-03-01 05:50 | XMS_ITS | Encounter Summary ---
Author Organization [facility] Medical [facility] Address [address] [place] [address] Care Team Providers Care Logging Crew Foreman Name Role Phone Angie Riddle MD Unavailable [phone] Hardy Morgan MD PhD Primary Care Provider + Reason for Visit * Cardiology (Routine) - Closed Specialty Diagnoses / Procedures Referred By Viridiana oconnor Referred To Contact Diagnoses SSS (sick sinus syndrome) (CMS/HCC) (HCC) Procedures DEVICE CHECK - REMOTE Yoni Matamoros MD [address], [place] [address] Phone: tel: fax: [facility] Medical Group Referral ID Status Reason Start Date Expiration Date Visits Re quested Visits Authorized [id number] Closed 02/28/2020 03/29/2021 1 1 Encounter Details Date Type Department Care Team (Latest Contact Info) Description 03/31/2021 11:30 AM ACCOUNT DEVELOPMENT ASSOCIATE Ancillary Procedure [facility] Medical [facility] Cardiology [address] [place] [id number] SSS (sick sinus syndrome) (CMS/HCC) ([facility] [...] on file Legal Sex Female 9:31 AM ACCOUNT DEVELOPMENT ASSOCIATE Gender Identity Not on file Sexual Orientation Not on file documented as of this encounter Plan of Treatment Not on file documented as of this encounter Procedures Procedure Name Priority Date/Time Associated Diagnosis Comments DEVICE CHECK - REMOTE Routine 03/31/2021 9:14 AM ACCOUNT DEVELOPMENT ASSOCIATE SSS (sick sinus syndrome) (CMS/HCC) (HCC) documented in this encounter Results * DEVICE CHECK - REMOTE (03/31/2021 9:14 AM ACCOUNT DEVELOPMENT ASSOCIATE) Anatomical Region Laterality Modality Other Narrative 04/02/2021 8:52 AM ACCOUNT DEVELOPMENT ASSOCIATE This patient received a Medtronic Pacemaker. ??They had a routine ??remote transmission on 03/31/2021. Device implant indications: ??Sick sinus syndrome ?? Interrogation of the patient's device demonstrates the following: Presenting EGM: ??A paced V sensed @ 72 ??bpm Lead Measurements Right Atrium Right Ventricle Sensitivity (mV) Not done mV 5.6-16.0 mV Impedence (Ohms) 564 ohms 511 ohms Pace Threshold 1.25 V @ 0.4 ms 0.75 V @ 0.4 ms Pacing % 95.9 % 0.4 % Battery Status: ??3.5 years to SARMAD Episodes last 90 days/Comments: AF [place] 6.1 %, the longest episode lasted 1 hour 24 minutes. ?? Ventricular rate ranged from 108 to and 120 beats per minute. NORMAL DEVICE FUNCTION PROGRAMMED Anti-coagulant(s): ??Pradaxa 150 mg twice daily Anti-arrhythmic(s): ??Cardizem LA 180 mg daily, Toprol-XL 25 mg daily Plan: 1) normal Medtronic Pacemaker evaluation 2) Medtronic remote transmission scheduled in 3 months. Jaycob Mar RMiya. us Yoni Matamoros MD [facility] PRO CEDURES Final Result documented in this encounter Visit Diagnoses Diagnosis SSS (sick sinus syndrome) (CMS/HCC) (HCC) Sinoatrial node dysfunction Pacemaker Cardiac pacemaker in situ documented in this encounter Care Teams Logging Crew Foreman Relationship Specialty Start Date End Date Hardy Morgan MD PhD [address] [facility] [facility] [address] [place] [address] PCP - General 12/02/16 08/10/22 Angie Riddle MD [address] [address] Gynecology 08/19/16 documented as of this encounter
--- OUTSIDE RECORDS SUMMARY | 2024-03-01 05:50 | XMS_ITS | Encounter Summary ---
Author Organization [facility] Healthcare Address [address] [place] [address] Care Team Providers Care Hand Sprayer Name Role Phone Angie Riddle MD Unavailable [phone] Luisa Mitchell DO Primary Care Provider [phone] Encounter Details Date Type Department Care Team (Late st Contact Info) Description 03/25/2023 Telephone [facility] Medical Group Cardiology [address] [place] [address] Yoni Matamoros MD [address] [facility] [address] [place] [address] Social History Tobacco Use Types [...] on file Legal Sex Female 9:31 AM AIRLINE COUNTER 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 Called pt at this time and updated rx was faxed to pharmacy. INE COUNTER AGENT * Telephone Encounter - Kavita Roa LPN - 03/25/2023 9:16 AM AIRLINE COUNTER AGENT Faxed over paper script at this time to [facility] INE COUNTER AGENT * Telephone Encounter - Jacquelin Mohan MA - 03/25/2023 8:29 AM CST Patient left message on refill line requesting Pradaxa 150 mg refill to be sent [employer] INE COUNTER AGENT documented in this encounter Plan of Treatment Not on file documented as of this encounter Visit Diagnoses Not on filedocumented in this encounter Discontinued Medications Medication Sig Discontinue Reason Start Date End Da te dabigatran (Pradaxa) 150 mg capsule Take 1 capsule (150 mg total) by mouth 2 (two) times a day Reorder 03/31/2022 03/25/2023 documented as of this encounter Care Teams Hand Sprayer Relationship Specialty Start Date End Date Luisa Mitchell DO [address] [place] [address] PCP - General Internal Medicine 08/11/22 Angie Riddle MD [address] [place], [place] [address] Gynecology 08/19/16 documented as of this encounter
--- OUTSIDE RECORDS SUMMARY | 2024-03-01 05:50 | XMS_ITS | Encounter Summary ---
Author Organization [facility] Medical Group Address [address] [place] [address] Care Team Providers Care Natural Resource Manager Name Role Phone nAgie Riddle MD Unavailable [phone] Luisa Mitchell DO Primary Care Provider [phone] Reason for Visit * Cardiology (Routine) - Closed Specialty Diagnoses / Procedures Referred By Viridiana oconnor Referred To Contact Diagnoses Pacemaker Procedures DEVICE CHECK - IN OFFICE Yoni Matamoros MD [address] [facility] [address] [place] [address] Phone: tel: fax: [facility] Medical Group Referral ID Status Reason Start Date Expiration Date Visits Re quested Visits Authorized [id number] Closed 08/10/2022 09/09/2023 1 1 Encounter Details Date Type Department Care Team (Latest Contact Info) Description 08/11/2022 11:30 AM CDT Ancillary Procedure [facility] Medical [facility] Cardiology [address] [place] [id number] Cardiac pacemaker in situ (Primary Dx); Pacemaker Social History Tobacco Use Types Packs/Day Years Used Date Smoking Tobacco: Former Cigarettes Q uit: 1985 Smokeless Tobacco: Never Alcohol Use Standard Drinks/Week Comments No 0 (1 standard drink = 0.6 oz pur e alcohol) Comments No Sex and Gender Information Value Date Recorded Sex Assigned at Not on file 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 Gender Identity Not on file Sexual Orientation Not on file documented as of this encounter Plan of Treatment Not on file documented as of this encounter Procedures Procedure Name Priority Date/Time Associated Diagnosis Comments DEVICE CHECK - IN OFFICE Routine 08/11/2022 11:36 AM CDT Pacemaker documented in this encounter Results [...] to SARMAD Episodes last 90 days/Comments: AF [place] 8.7 %, there were numerous episodes of [...] appropriate for device measurements Jaycob Mar RN Yoni Matamoros MD [facility] PRO CEDURES Final Result documented in this encounter Visit Diagnoses Diagnosis Cardiac pacemaker in situ- Primary Pacemaker Cardiac pacemaker in situ documented in this encounter Care Teams Natural Resource Manager Relationship Specialty Start Date End Date Luisa Mitchell DO [address] [place] [address] PCP - General Internal Medicine 08/11/22 nAgie Riddle MD [address] [place] [address] Gynecology 08/19/16 documented as of this encounter
--- OUTSIDE RECORDS SUMMARY | 2024-03-01 05:50 | XMS_ITS | Encounter Summary ---
Author Organization [facility] Medical Group Address [address] [place] [address] Care Team Providers Care Employee Benefits Specialist Name Role Phone Angie Riddle MD Unavailable [phone] Hardy Morgan MD PhD Primary Care Provider + Reason for Visit * Reason Comments Atrial Fibrillation Encounter Details Date Type Department Care Team (Late st Contact Info) Description 08/12/2021 1:00 PM CDT Office Visit [facility] Medical [facility] Cardiology [address] [place] [address] Yoni Matamoros MD [facility] [facility] [address] [place] [address] Paroxysmal atrial fibrillation (CMS/HCC) (HCC) (Primary Dx) Social History Tobacco Use Types Packs/Day Years Used Date Smoking Tobacco: Former Cigarettes Q uit: 1985 Smokeless Tobacco: Never Alcohol Use Standard Drinks/Week Comments No 0 (1 standard drink = 0.6 oz pur e alcohol) Comments No Sex and Gender Information Value Date Recorded Sex Assigned at Not on file 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 Gender Identity Not on file Sexual Orientation Not on file documented as of this encounter Last Filed Vital Signs Vital Sign Reading Time Taken Comments Blood Pressure 128/70 08/12/2021 12:53 PM CDT Pulse 65 08/12/2021 12:53 PM CDT Temperature - - Respiratory Rate - - Oxygen Saturation - - Inhaled Oxygen Concentration - - Weight 49.9 kg (110 lb) 08/12/2021 12:53 PM CDT Height 162.6 cm (5' 4 ) 08/12/2021 12:53 PM CDT Body Mass Index 18.88 08/12/2021 12:53 PM CDT documented in this encounter Progress Notes * Yoni Matamoros MD - 08/12/2021 1:00 PM CDT Images from the original note were not included. [facility] Cardiology [address] [place], [place], [facility] [address] Cardiology Electrophysiology Jose Ramon Walker, MD Cesar Tucker,, MD oJnathan Garcia, MD Skinny Fitzgerald, MD Nilton Mason, MD Arnold Stout, MD Jacob Infante, DO Antonio Canela, MD Quiana Cifuentes, JULIANA Nunes, MD Linda Carlton, MD Pollo Reynolds, MD Chester Pineda, MD Tomer Manjarrez, DO Yoni Matamoros, MD Shakira Maradiaga, MORTGAGE LOAN ASSISTANT Madalyn Cutler, MORTGAGE LOAN ASSISTANT Claudia Diaz, MORTGAGE LOAN ASSISTANT Patient Name: Francine Erwin Provider: Yoni Matamoros MD : 1940 Date of Service: 08/12/2021 Referring: Cathy CHIEF COMPLAINT: Atrial Fibrillation HISTORY OF PRESENT ILLNESS: 81 y.o. female with paroxysmal atrial fibrillation, permanent pacemaker placement On chronic anticoagulation with Pradaxa Interval History Overall doing well. Tolerating Pradaxa well with no bleeding Is quite expensive and she prefers to get it filled via pharmacy in [place] where it is cheaper Had device interrogation today AFib burden fairly low 4.8%, she does feel the palpitations on occasion. Low pacing percentage a paced 96%, V paced only 0.3% I reviewed this patient's Allergies and Current [...] stated in HPI above. PHYSICAL EXAM: BP 128/70 (BP Location: Right arm, Patient Position: Sitting) Pulse 65 Ht 162.6 cm (5' 4 ) Wt49.9 kg (110 lb) BMI 18.88 kg/m?? General: Well appearing, No pain or distress, well nourished Head and Neck: N/A Eyes: N/A ENT: N/A Respiratory: Clear to ausculation bilaterally; no wheezing/rales/rhonchi; respirations nonlabored Cardiovascular: RRR, normal S1 and S2. No S3 or S4. No murmurs or rubs. No visible JVD. Gastrointestinal: N/A Extremities: Warm and perfused extremities, no edema Musculoskeletal: Ambulates under own power, no assistive devices Skin: N/A Psychiatric: Appropriate mood and affect. Calm and cooperative. Neurologic: awake/alert, no focal deficits MDM Problems Addressed: No diagnosis found. Data Reviewed: - reviewed device interrogation low AFib burden 4.8% - continue current regimen, - continue Pradaxa for anticoagulation ASSESSMENT & PLAN DISCUSSION Diagnoses and all orders for this visit: Paroxysmal atrial fibrillation (CMS/HCC) (Primary) - known paroxysmal AFib - sick sinus/tachy-ann syndrome - 4.8% AFib burden on interrogation today - overall asymptomatic and well managed though she does feel the palpitations on occasion Plan - continue current dose of metoprolol XL 25 mg daily and diltiazem 180 mg daily - continue Pradaxa for CVA prophylaxis SSS (sick sinus syndrome) (CMS/HCC) Pacemaker - pacemaker interrogated today normal functioning - estimated 3.5 years to SARMAD Yoni Witbrodt, MD [facility] School Plant Consultant This note was dictated in part using [employer] voice recognition software. Despite careful review of this note, variances in spelling and vocabulary are possible and unintentional. documented in this encounter Plan of Treatment Not on file documented as of this encounter Visit Diagnoses Diagnosis Paroxysmal atrial fibrillation (CMS/HCC) (HCC)- Primary Atrial fibrillation documented in this encounter Care Teams Employee Benefits Specialist Relationship Specialty Start Date End Date Hardy Morgan MD PhD [address] [facility] [address] [facility] [address] [place] [address] PCP - General 12/02/16 08/10/22 Angie Riddle MD [address] [place] [address] Gynecology 08/19/16 documented as of this encounter
--- OUTSIDE RECORDS SUMMARY | 2024-03-01 05:50 | XMS_ITS | Encounter Summary ---
Author Organization [facility] Healthcare Address [address] [place] [address] Care Team Providers Care Blocker Hand Name Role Phone Angie Riddle MD Unavailable [phone] Luisa Mitchell DO Primary Care Provider [phone] Reason for Visit * Diagnostic Imaging (Routine) - Closed Specialty Diagnoses / Procedures Referred By Viridiana oconnor Referred To Contact Procedures Breast Imaging Screening Outside Reference Miscellaneous, Not In File Referral ID Status Reason Start Date Expiration Date Visits Re quested Visits Authorized [id number] Closed 12/18/2022 01/17/2024 1 1 Encounter Details Date Type Department Care Team (Late st Contact Info) Description 10/09/2022 Ancillary Procedure [facility] Social History Tobacco Use Types Packs/Day Years Used Date Smoking Tobacco: Former Cigarettes Q uit: 1985 Smokeless Tobacco: Never Alcohol Use Standard Drinks/Week Comments No 0 (1 standard drink = 0.6 oz pur e alcohol) Comments No Sex and Gender Information Value Date Recorded Sex Assigned at Not on file 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 us Not In File Miscellaneous IMG MAMMO PROCEDURES F inal Result [facility] documented in this encounter Visit Diagnoses Not on filedocumented in this encounter Care Teams Blocker Hand Relationship Specialty Start Date End Date Luisa Mitchell DO [address] [place] [address] PCP - General Internal Medicine 08/11/22 Angie Riddle MD [address] [place] [address] Gynecology 08/19/16 documented as of this encounter
--- OUTSIDE RECORDS SUMMARY | 2024-03-01 05:50 | XMS_ITS | Encounter Summary ---
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 Gender Identity Not on file Sexual Orientation Not on file documented as of this encounter Miscellaneous Notes * Telephone Encounter - Kaykay Zabala - 09/12/2023 4:16 PM CDT Records obtained include the following: [x] Referral Epic Location: Chart Review - Referrals Date: 09/07/23 [x] Office Note(s) Epic Location: Chart Review - Encounters Date: 09/07/23 [] ED/Hospital Visit Epic Location: Not Applicable Date: [] Previous Neuro Records Epic Location: Not Applicable Date: [] MRI Imaging Epic Location: Not Applicable Date: [] MRI Report Epic Location: Not Applicable Date: [x] CT Imaging Epic Location: Chart Review - Imaging Date: 08/11/23 [] CT Report Epic Location: Chart Review - Media Date: [x] Neurological Testing/Procedures Epic Location: Chart Review - Imaging Date: Test/Procedure Name: Epic Location: Not Applicable Date: Test/Procedure Name: Epic Location: Not Applicable Date: Test/Procedure Name: [] Other Epic Location: Date: documented in this encounter Plan of Treatment Not on file documented as of this encounter Visit Diagnoses Not on filedocumented in this encounter Care Teams Process Mold Technician Relationship Specialty Start Date End Date Luisa Mitchell DO [address] [place] [address] PCP - General Internal Medicine 08/11/22 Angie Riddle MD [address] [place] [address] Gynecology 08/19/16 documented as of this encounter"
--- OUTSIDE RECORDS SUMMARY | 2024-03-01 05:50 | XMS_ITS | Encounter Summary ---
Author Organization [facility] Healthcare Address [address] [place] [address] Care Team Providers Care Advertising Layout Worker Name Role Phone Angie Riddle MD Unavailable [phone] Luisa Mitchell DO Primary Care Provider [phone] Reason for Visit * Diagnostic Imaging (Routine) - Canceled Specialty Diagnoses / Procedures Referred By Viridiana oconnor Referred To Contact Diagnoses Arthralgia of both hands Procedures XR Foot Right 2 Views Renetta Geller MD [address] [facility] [address] [place] [address] Phone: tel: fax: [address] [phone] Referral ID Status Reason Start Date Expiration Date V isits Requested Visits Authorized [id number] Canceled 09/27/2023 10/26/2024 1 1 Encounter Details Date Type Department Care Team (Latest Contact Info) Description 09/27/2023 2:54 PM CDT - 09/27/2023 11:59 PM CDT Hospital Encounter [facility] - Imaging [address] [place] [address] Arthralgia of both hands Discharge [...] on file 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 Hallux valgus with severe degenerative joint disease in the 1st metatarsal phalangeal joint. 2. ??Marked degenerative joint disease in the 1st carpometacarpal joint. COMMENT: Please see above for additional findings. Electronically signed by: Fletcher Ortiz M.D. Narrative 09/27/2023 4:22 PM CDT Right Foot, 3 views HISTORY: Foot pain COMPARISON: ??None available. FINDINGS: There is no evidence of fracture, stress fracture or dislocation. Hallux valgus some is noted without significant bunion formation. However there is severe degenerative joint disease in the 1st metatarsophalangeal joint. ??Prominent spur formation is noted. There is also marked degenerative joint disease in the 1st tarsometatarsal joint. There is no gross evidence of a joint effusion. The remainder of the examination is within expected limits. Procedure Note Fletcher Ortiz MD - 09/27/2023 Right Foot, 3 views HISTORY: Foot pain COMPARISON: None available. FINDINGS: There is no evidence of fracture, stress fracture or dislocation. Hallux valgus some is noted without significant bunion formation. However there is severe degenerative joint disease in the 1st metatarsophalangeal joint. Prominent spur formation is noted. There is also marked degenerative joint disease in the 1st tarsometatarsal joint. There is no gross evidence of a joint effusion. The remainder of the examination is within expected limits. IMPRESSION: 1. Hallux valgus with severe degenerative joint disease in the 1st metatarsal phalangeal joint. 2. Marked degenerative joint disease in the 1st carpometacarpal joint. COMMENT: Please see above for additional findings. Electronically signed by: Fletcher Ortiz M.D. us Renetta Geller MD IMG XR PROCEDURES Final Result documented in this encounter Visit Diagnoses Diagnosis Arthralgia of both hands documented in this encounter Care Teams Advertising Layout Worker Relationship Specialty Start Date End Date Luisa Mitchell DO [address] [place], [place] [id number] PCP - General Internal Medicine 08/11/22 Angie Riddle MD [address] [place] [address] Gynecology 08/19/16 documented as of this encounter
--- OUTSIDE RECORDS SUMMARY | 2024-03-01 05:50 | XMS_ITS | Encounter Summary ---
Author Organization [facility] Healthcare Address [address] [place] [address] Care Team Providers Care Hemodialysis Technician Name Role Phone Angie Riddle MD Unavailable [phone] Luisa Mitchell DO Primary Care Provider Reason for Visit * Diagnostic Imaging (Routine) - Pending Review Specialty Diagnoses / Procedures Referred By Viridiana oconnor Referred To Contact Diagnoses Arthralgia of both hands Procedures XR Knee Right 1 or 2 Views XR Knee Right 3 Views Renetta Geller MD [address] [facility] [address] [place] [address] Phone: tel: fax: [address] [phone] Referral ID Status Reason Start Date Expiration Date V isits Requested Visits Authorized [id number] Pending Review 09/27/2023 10/26/2024 1 1 Encounter Details Date Type Department Care Team (Latest Contact Info) Description 09/27/2023 2:54 PM CDT - 09/27/2023 11:59 PM CDT Hospital Encounter [facility] - Imaging [address] [place] [address] Arthralgia of both hands Discharge [...] on file 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 3 compartment degenerative joint disease which is most significant in the lateral joint space compartment where there is moderate to marked disease. COMMENT: Please see above for additional findings. Electronically signed by: Fletcher Ortiz M.D. Narrative 09/27/2023 4:10 PM CDT Right Knee, 2 views HISTORY: Knee pain COMPARISON: ??None available. FINDINGS: There is no evidence of fracture, stress fracture or dislocation. No significant soft tissue swelling is apparent radiographically. The alignment is within expected limits. The mineralization is within expected limits for age. There is no evidence of an erosion, significant intraosseous cystic change or periarticular soft tissue swelling. There is some marked narrowing of the lateral joint space compartment with sclerosis and prominent spur formation. ??Chondrocalcinosis is noted. There is moderate narrowing of the medial joint space compartment with spur formation and chondrocalcinosis. The patellofemoral joint space compartment is grossly preserved. Degenerative spur formation is present. There is no gross evidence of a joint effusion. The remainder of the examination is within expected limits. Procedure Note Fletcher Ortiz MD - 09/27/2023 Right Knee, 2 views HISTORY: Knee pain COMPARISON: None available. FINDINGS: There is no evidence of fracture, stress fracture or dislocation. No significant soft tissue swelling is apparent radiographically. The alignment is within expected limits. The mineralization is within expected limits for age. There is no evidence of an erosion, significant intraosseous cystic change or periarticular soft tissue swelling. There is some marked narrowing of the lateral joint space compartment with sclerosis and prominent spur formation. Chondrocalcinosis is noted. There is moderate narrowing of the medial joint space compartment with spur formation and chondrocalcinosis. The patellofemoral joint space compartment is grossly preserved. Degenerative spur formation is present. There is no gross evidence of a joint effusion. The remainder of the examination is within expected limits. IMPRESSION: 1. 3 compartment degenerative joint disease which is most significant in the lateral joint space compartment where there is moderate to marked disease. COMMENT: Please see above for additional findings. Electronically signed by: Fletcher Ortiz M.D. us Renetta Geller MD IMG XR PROCEDURES Final Result documented in this encounter Visit Diagnoses Diagnosis Arthralgia of both hands documented in this encounter Care Teams Hemodialysis Technician Relationship Specialty Start Date End Date Luisa Mitchell DO [address] [place], [place] [id number] PCP - General Internal Medicine 08/11/22 Angie Riddle MD [address] [place] [address] Gynecology 08/19/16 documented as of this encounter
--- OUTSIDE RECORDS SUMMARY | 2024-03-01 05:50 | XMS_ITS | Encounter Summary ---
Author Organization [facility] Address [address] [facility] [address] [place] [address] Care Team Providers Care Car Escort Name Role Phone Angie Riddle MD Unavailable [phone] Luisa Mitchell DO Primary Care Provider [phone] Encounter Details Date Type Department Care Team (Late st Contact Info) Description 08/12/2022 Telephone [facility] Cardiology [address] [facility] [address] [place] [address] Yoni Matamoros MD [address] [facility] [address] [place] [address] Social History Tobacco Use Types Packs/Day Years Used Date Smoking Tobacco: Former Cigarettes Q uit: 1985 Smokeless Tobacco: Never Alcohol Use Standard Drinks/Week Comments No 0 (1 standard drink = 0.6 oz pur e alcohol) Comments No Sex and Gender Information Value Date Recorded Sex Assigned at Not on file 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 Mitchell's office at this time to see about getting recent labs that have been completed. Office states they will fax them over right away. Pending labs. documented in this encounter Plan of Treatment Not on file documented as of this encounter Visit Diagnoses Not on filedocumented in this encounter Care Teams Car Escort Relationship Specialty Start Date End Date Luisa Mitchell DO [address] [place], [place] [id number] PCP - General Internal Medicine 08/11/22 Angie Riddle MD [address] [place] [address] Gynecology 08/19/16 documented as of this encounter
--- OUTSIDE RECORDS SUMMARY | 2024-03-01 05:51 | XMS_ITS | Encounter Summary ---
Author Organization [facility] Address [address] [place] [address] Care Team Providers Care Group Fitness Manager Name Role Phone Angie Riddle MD Unavailable [phone] Hardy Morgan MD PhD Primary Care Provider + Reason for Visit * Diagnostic Imaging (Routine) - Closed Specialty Diagnoses / Procedures Referred By Viridiana oconnor Referred To Contact Procedures Breast Imaging Screening Outside Reference Miscellaneous, Not In File Referral ID Status Reason Start Date Expiration Date Visits Re quested Visits Authorized [id number] Closed 12/18/2022 01/17/2024 1 1 Encounter Details Date Type Department Care Team (Late st Contact Info) Description 08/19/2020 Ancillary Procedure [facility] Outside Films Social History Tobacco Use Types Packs/Day Years Used Date Smoking Tobacco: Former Cigarettes Q uit: 1985 Smokeless Tobacco: Never Alcohol Use Standard Drinks/Week Comments No 0 (1 standard drink = 0.6 oz pur e alcohol) Comments No Sex and Gender Information Value Date Recorded Sex Assigned at Not on file 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 us Not In File Miscellaneous IMG MAMMO PROCEDURES F inal Result RAD_PACS_[facility] documented in this encounter Visit Diagnoses Not on filedocumented in this encounter Care Teams Group Fitness Manager Relationship Specialty Start Date End Date Hardy Morgan MD PhD [address] [facility] [address] [place] [address] PCP - General 12/02/16 08/10/22 Angie Riddle MD [address] [place] [address] Gynecology 08/19/16 documented as of this encounter
--- OUTSIDE RECORDS SUMMARY | 2024-03-01 05:51 | XMS_ITS | Encounter Summary ---
Author Organization [facility] Address [address] [facility] [address] [place] [address] Care Team Providers Care School Custodian Name Role Phone Lida Land MD Primary Care Provider [phone] Angie Ridlde MD Unavailable [phone] Reason for Visit * Reason Comments Device Check pacer check and OV w ith Dr. Cho * Cardiology (Routine) - Closed Specialty Diagnoses / Procedures Referred By Contac t Referred To Contact Diagnoses Sick sinus syndrome (CMS/HCC) (HCC) Procedures DEVICE CHECK - IN OFFICE Nilton Cho MD Phone: tel: fax: Referral ID Status Reason Start Date Expiration Date Visits Re quested Visits Authorized [id number] Closed 08/04/2016 01/31/2017 1 1 Encounter Details Date Type Department Care Team (Latest Contact Info) Description 09/07/2016 9:45 AM CDT Ancillary Procedure [facility] Cardiology [address] [facility] [address] [place] [address] Sick sinus syndrome (CMS/HCC); Pacemaker Social History Tobacco Use Types Packs/Day Years Used Date Smoking Tobacco: Former Alcohol Use Standard Drinks/Week Comments No 0 (1 standard drink = 0.6 oz pur e alcohol) Comments No Sex and Gender Information Value Date Recorded Sex Assigned at Not on file 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 Gender Identity Not on file Sexual Orientation Not on file documented as of this encounter Plan of Treatment Not on file documented as of this encounter Procedures Procedure Name Priority Date/Time Associated Diagnosis Comments DEVICE CHECK - IN OFFICE Routine 09/07/2016 9:55 AM CDT Sick sinus syndrome (CMS/HCC) documented in this encounter Results * DEVICE CHECK - IN OFFICE (09/07/2016 9:55 AM CDT) Anatomical Region Laterality Modality Other Narrative 09/15/2016 4:19 PM CDT This patient has a 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 Chronic A lead is from 09-13-03. ??She is in the office today for a device check and OV with Dr. Cho. She is on Pradaxa for AC. Incision left chest is well healed W/O signs of infection. Interrogation of the patient? s device demonstrates that the DDD pacemaker is functioning appropriately according to the line closer? s recommendations with appropriate battery voltage, lead impedances, stable atrial and ventricular pacing and ventricular sensing thresholds. ? Unable to obtain Atrial sensing TH due to lack of intrinsic ventricular activity at AAI 30 BPM. ??There were no ventricular arrhythmias noted. There were 537 MS episodes 2.7 % of the time and 140 AHR episodes, the longest episode was 12 hours, IEGM? s atrial fibrillation, atrial flutter. AP-98 %, RVP-0 % Presenting-AP/VS Underlying Rhythm-No atrial escape at VVI 30 BPM Battery V-2.80 V, 6 years to SARMAD Atrial- ??Paced ??mv, 581 ??ohms, 1.75 V @ ??.40 ms RV- 8.0-11.2 Mv, 559 ohms, 0.75 ??V @ .40 Ms Plan: 1) Pacemaker evaluation as noted above. 2) Carelink 3, 6, and 9 months, in office check in 12 months. Francine Gentile RN, RS, CCDS-Arrhythmia Device Specialist us Nilton Cho MD CV CARDIAC SERVICES PROCEDUR ES Final Result documented in this encounter Visit Diagnoses Diagnosis Sick sinus syndrome (CMS/HCC) (HCC) Sinoatrial node dysfunction Pacemaker Cardiac pacemaker in situ documented in this encounter Care Teams School Custodian Relationship Specialty Start Date End Date Lida Land MD [address] [facility] [address] [place] [address] PCP - General 05/29/16 12/01/16 Angie Riddle MD [address] [place] [address] Gynecology 08/19/16 documented as of this encounter
--- OUTSIDE RECORDS SUMMARY | 2024-03-01 05:51 | XMS_ITS | Encounter Summary ---
Author Organization [facility] Address [address] [facility] [address] [place] [address] Care Team Providers Care Marine Electrician Helper Name Role Phone Angie Riddle MD Unavailable [phone] Hardy Morgan MD PhD Primary Care Provider + Reason for Visit * (Routine) - Closed Specialty Diagnoses / Procedures Referred By Viridiana oconnor Referred To Contact Diagnoses SSS (sick sinus syndrome) (CMS/HCC) ([facility]) Procedures DEVICE CHECK - REMOTE Nilton Cho MD Phone: tel: fax: [facility] Referral ID Status Reason Start Date Expiration Date Visits Re quested Visits Authorized [id number] Closed 09/06/2018 03/17/2020 1 1 Encounter Details Date Type Department Care Team (Latest Contact Info) Description 09/12/2018 11:00 AM CDT Ancillary Procedure [facility] Medical [facility] Cardiology [address] [facility] [address] [place] [address] SSS (sick sinus syndrome) ([facility]); Pacemaker Social History Tobacco Use Types Packs/Day Years Used Date Smoking Tobacco: Former Cigarettes Q uit: 1985 Smokeless Tobacco: Never Alcohol Use Standard Drinks/Week Comments No 0 (1 standard drink = 0.6 oz pur e alcohol) Comments No Sex and Gender Information Value Date Recorded Sex Assigned at Not on file 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 This patient has a 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 Chronic A lead is from 09-13-03. She had a routine Carelink remote transmission of her pacemaker today. She is on Pradaxa, Diltiazem and Metoprolol per Medication list. Interrogation of the patient???s device demonstrates Appropriate DDD pacemaker function Appropriate battery voltage, Stable lead impedances, Stable ventricular sensing TH Stable atrial and ventricular pacing sensing thresholds (223) MS episodes and 38 AHR episodes-3.0 %, the longest episode was hours and 27 minutes in duration, IEGM's atrial flutter (0) ventricular arrhythmias noted. AP-98 %, RVP-0 % Presenting-AP/VS Magnet DOO 85 BPM See scanned Carelink remote transmission Plan: 1) Carelink remote Pacemaker evaluation as noted above. 2) Carelink 3 months. 3) Letter sent with transmission results Francine Gentile RN, [facility], Arrhythmia Device Specialist documented in this encounter Plan of Treatment Not on file documented as of this encounter Procedures Procedure Name Priority Date/Time Associated Diagnosis Comments DEVICE CHECK - REMOTE Routine 09/12/2018 1:45 PM CDT SSS (sick sinus syndrome) ([facility]) documented in this encounter Results * DEVICE CHECK - REMOTE (09/12/2018 1:45 PM CDT) Anatomical Region Laterality Modality Other Narrative 09/13/2018 8:54 AM CDT This patient has a 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 Chronic A lead is from 09-13-03. ??She had a routine Carelink remote transmission of her pacemaker today. She is on Pradaxa, Diltiazem and Metoprolol per Medication list. Interrogation of the patient? s device demonstrates Appropriate DDD pacemaker function Appropriate battery voltage, Stable lead impedances, Stable ventricular sensing TH Stable atrial and ventricular pacing sensing thresholds (223) MS episodes and 38 AHR episodes-3.0 %, the longest episode was hours and 27 minutes in duration, IEGM's atrial flutter (0) ventricular arrhythmias noted. AP-98 %, RVP-0 % Presenting-AP/VS Magnet DOO 85 BPM See scanned Carelink remote transmission Plan: 1) Carelink remote Pacemaker evaluation as noted above. 2) Carelink 3 months. 3) Letter sent with transmission results Francine Gentile RN, RS, Arrhythmia Device Specialist us Nilton Cho MD CV CARDIAC SERVICES PROCEDUR ES Final Result documented in this encounter Visit Diagnoses Diagnosis SSS (sick sinus syndrome) (CMS/HCC) (HCC) Sinoatrial node dysfunction Pacemaker Cardiac pacemaker in situ documented in this encounter Care Teams Marine Electrician Helper Relationship Specialty Start Date End Date Hardy Morgan MD PhD [address] [facility] [address] [place] [address] PCP - General 12/02/16 08/10/22 Angie Riddle MD [address] [place], [place] [id number] Gynecology 08/19/16 documented as of this encounter
--- OUTSIDE RECORDS SUMMARY | 2024-03-01 05:51 | XMS_ITS | Encounter Summary ---
Author Organization [facility] Address [address] [place] [address] Care Team Providers Care Director Of Rehabilitative Services Name Role Phone Angie Riddle MD Unavailable [phone] Hardy Morgan MD PhD Primary Care Provider + Reason for Visit * Cardiology (Routine) - Closed Specialty Diagnoses / Procedures Referred By Viridiana oconnor Referred To Contact Diagnoses SSS (sick sinus syndrome) (CMS/HCC) (HCC) Procedures DEVICE CHECK - REMOTE Yoni Matamoros MD [address] [facility] [address], [place] [address] Phone: tel: fax: [facility] Referral ID Status Reason Start Date Expiration Date Visits Re quested Visits Authorized [id number] Closed 02/28/2020 03/29/2021 1 1 Encounter Details Date Type Department Care Team (Latest Contact Info) Description 12/30/2020 8:45 AM CDT Ancillary Procedure [facility] Medical [facility] Cardiology [address] [place] [id number] SSS (sick sinus syndrome) (CMS/HCC) ([facility]); Pacemaker Social History Tobacco Use Types Packs/Day Years Used Date Smoking Tobacco: Former Cigarettes Q uit: 1985 Smokeless Tobacco: Never Alcohol Use Standard Drinks/Week Comments No 0 (1 standard drink = 0.6 oz pur e alcohol) Comments No Sex and Gender Information Value Date Recorded Sex Assigned at Not on file Legal Sex Female 9:31 AM ENVIRONMENTAL SERVICES FLOOR TECH Gender Identity Not on file Sexual Orientation Not on file documented as of this encounter Plan of Treatment Not on file documented as of this encounter Procedures Procedure Name Priority Date/Time Associated Diagnosis Comments DEVICE CHECK - REMOTE Routine 12/30/2020 9:06 AM CDT SSS (sick sinus syndrome) (CMS/HCC) (HCC) documented in this encounter Results * DEVICE CHECK - REMOTE (12/30/2020 9:06 AM CDT) Anatomical Region Laterality Modality Other Narrative 01/01/2021 4:58 PM CDT This patient received a Medtronic Pacemaker. ??They had a routine ??remote transmission on 12/30/2020. Device implant indications: ??Sick sinus syndrome ?? Interrogation of the patient's device demonstrates the following: Presenting EGM: ??AT/AF with V sensed @ 85 bpm Lead Measurements Right Atrium Right Ventricle Sensitivity (mV) Not done mV 5.6-16.0 mV Impedence (Ohms) 600 ohms 522 ohms Pace Threshold 1.0 V @ 0.4 ms 0.625 V @ 0.4 ms Pacing % 95.4 % 0.5 % Battery Status: ??3.5 years to SARMAD Episodes last 90 days/Comments: AF [place] 7.1 %, the longest episode was 24 hours and 19 minutes. ?? Ventricular rates range between 79 and 107 beats per minute. NORMAL DEVICE FUNCTION PROGRAMMED Anti-coagulant(s): ??Pradaxa 150 mg twice daily Anti-arrhythmic(s): ??Toprol-XL 25 mg daily, Cardizem LA 180 mg daily Plan: 1) normal Medtronic Pacemaker evaluation 2) Medtronic remote transmission scheduled in 3 months. Jaycob Mar R.N. us Yoni Matamoros MD [facility] PRO CEDURES Final Result documented in this encounter Visit Diagnoses Diagnosis SSS (sick sinus syndrome) (CMS/HCC) (HCC) Sinoatrial node dysfunction Pacemaker Cardiac pacemaker in situ documented in this encounter Care Teams Director Of Rehabilitative Services Relationship Specialty Start Date End Date Hardy Morgan MD PhD [address] [place] [address] PCP - General 12/02/16 08/10/22 Angie Riddle MD [address] [address] Gynecology 08/19/16 documented as of this encounter
--- OUTSIDE RECORDS SUMMARY | 2024-03-01 05:51 | XMS_ITS | Encounter Summary ---
Author Organization [facility] Healthcare Address [address] [place] [address] Care Team Providers Care Kennel Attendant Name Role Phone Angie Riddle MD Unavailable [phone] Hardy Morgan MD PhD Primary Care Provider + Encounter Details Date Type Department Care Team (Latest Contact Info) Description 12/15/2016 1:01 PM CDT - 12/15/2016 6:32 PM CDT Hospital Encounter [facility] - Interventional Radiology [address] [place] [address] Smith Ortiz DO [address] [address] [place] [address] Moises Soler MD [address] [place] [address] Discharge Disposition: Discharge to home or self care Social History Tobacco Use Types Packs/Day Years Used Date Smoking Tobacco: Former Alcohol Use Standard Drinks/Week Comments No 0 (1 standard drink = 0.6 oz pur e alcohol) Comments No Sex and Gender Information Value Date Recorded Sex Assigned at Not on file Legal Sex Female 9:31 AM MARKETING OPERATIONS INTERN Gender Identity Not on file Sexual Orientation Not on file documented as of this encounter Medications at Time of Discharge omega-3 fatty acids-vitamin E (FISH OIL) 1,000 mg capsule take 1 by Oral route 3 times every day 0 0 07/21/2013 VIT C/E/ZN/COPPR/LUT EIN/ZEAXAN (PRESERVISION AREDS 2 ORAL) Take by mouth Take 2 capsules daily biotin 2,500 mcg capsule take 2 capsules daily 0 0 05/09/2014 08/12/2020 dabigatran (PRADAXA) 150 mg capsule take 1 capsule (150MG) by oral route 2 times every day 180 3 05/12/2012 01/18/2017 diltiazem LA (CARDIZEM LA) 180 mg 24 hr tablet take 1 tablet by oral route every day 0 0 07/21/2013 08/24/2023 meloxicam (MOBIC) 15 mg tablet take 1 tablet by oral route every day as needed 0 0 07/21/2013 11/12/2023 metoprolol XL (TOPROL-XL) 25 mg 24 hr tablet take 1/2 tablet (25MG) by oral route every day 0 12/01/2010 08/12/2020 multivitamin tablet tablet take 1 by Oral route once 0 0 07/21/2013 11/12/2023 documented as of this encounter Discharge Disposition Disposition Code Departure Means Destination Discharge to home or self care documented in this encounter Plan of Treatment Not on file documented as of this encounter Procedures Procedure Name Priority Date/Time Associated Diagnosis Comments IR EPIDURAL INJECTION LUMBOSACRAL W GUIDANCE Routine 12/15/2016 7:06 PM CDT documented in this encounter Results * Epidural Injection Lumbosacral WO Guidance (12/15/2016 7:06 PM CDT) Anatomical Region Laterality Modality Spine N/A X-Ray Angiograph y 12/15/2016 7:06 PM CDT Narrative 12/15/2016 7:36 PM CDT EXAM: ??LUMBAR EPIDURAL INJECTION USING FLUOROSCOPY. HISTORY: Low back pain and radiculopathy. PROCEDURE: The procedure of lumbar epidural was explained to the patient in detail. The risks of the procedure including but not limited to increased pain, bleeding, infection, leg weakness and numbness, and permanent neurologic damage were all explained. Both oral and written consent were obtained prior to beginning the procedure. Sterile technique was used for the entire procedure. 1% lidocaine was used for anesthesia locally. Then, at 20 gauge Tuohy needle was placed into the epidural space at the L4-L5 level. ??2 mL of Omnipaque-180 contrast were then injected to verify needle tip location. Then, 1 mL of Depo-Medrol (80 mg total) and 1 mL of preservative-free 1% lidocaine were injected under direct fluoroscopic visualization. There were no immediate complications. The needle was withdrawn and a sterile bandage was placed. Total fluoroscopy time was 0.1 minutes. FINDINGS: Prior to procedure, the patient reported 5 out of 10 pain. Immediately after the procedure, the patient reported 4 out of 10 pain. IMPRESSION: Lumbar epidural injection as described above. Electronically signed by: Moises Soler M.D. Radiologist: MOISES SOLER MD ?? Attending: ??SMITH ORTIZ ??D.O. Requesting: SMITH ORTIZ ??D.O. Requesting Fax: ?? Requesting ID: [id number] Attending Fax: ?? Attending ID: ?? [id number] Completed Time: ?? 12/15/2016 2:06 PM Dictated Time: ?N/A Transcribed Time: 12/15/2016 2:36 PM Signed by: ?MOISES SOLER MD ?? on 12/15/2016 2:36 PM Report To 1 ID: Report To 1 Name: , Report To 1 FAX: Report To 2 ID: Report To 2 Name: , Report To 2 FAX: Report To 3 ID: Report To 3 Name: , Report To 3 FAX: NextGen Order #: Procedure Note Miscellaneous, Not In File - 12/15/2016 EXAM: LUMBAR EPIDURAL INJECTION USING FLUOROSCOPY. HISTORY: Low back pain and radiculopathy. PROCEDURE: The procedure of lumbar epidural was explained to the patient in detail. The risks of the procedure including but not limited to increased pain, bleeding, infection, leg weakness and numbness, and permanent neurologic damage were all explained. Both oral and written consent were obtained prior to beginning the procedure. Sterile technique was used for the entire procedure. 1% lidocaine was used for anesthesia locally. Then, at 20 gauge Tuohy needle was placed into the epidural space at the L4-L5 level. 2 mL of Omnipaque-180 contrast were then injected to verify needle tip location. Then, 1 mL of Depo-Medrol (80 mg total) and 1 mL of preservative-free 1% lidocaine were injected under direct fluoroscopic visualization. There were no immediate complications. The needle was withdrawn and a sterile bandage was placed. Total fluoroscopy time was 0.1 minutes. FINDINGS: Prior to procedure, the patient reported 5 out of 10 pain. Immediately after the procedure, the patient reported 4 out of 10 pain. IMPRESSION: Lumbar epidural injection as described above. Electronically signed by: Moises Soler M.D. Radiologist: MOISES SOLER MD Attending: SMITH ORTIZ D.O. Requesting: SMITH ORTIZ D.O. Requesting Requesting ID: [id number] Attending Attending ID: [id number] Completed Time: 12/15/2016 2:06 PM Dictated Time: N/A Transcribed Time: 12/15/2016 2:36 PM Signed by: MOISES SOLER MD on 12/15/2016 2:36 PM Report To 1 ID: Report To 1 Name: , Report To 1 FAX: Report To 2 ID: Report To 2 Name: , Report To 2 FAX: Report To 3 ID: Report To 3 Name: , Report To 3 FAX: NextGen Order #: Smith Ortiz DO IMG IR PROCEDURES Edited Result - Final documented in this encounter Visit Diagnoses Not on filedocumented in this encounter Care Teams Kennel Attendant Relationship Specialty Start Date End Date Hardy Morgan MD PhD [address] [place] [address] PCP - General 12/02/16 08/10/22 Angie Riddle MD [address] [place] [address] Gynecology 08/19/16 documented as of this encounter
--- OUTSIDE RECORDS SUMMARY | 2024-03-01 05:51 | XMS_ITS | Encounter Summary ---
Author Organization [facility] Address [address] [place] [address] Care Team Providers Care Supervisor Slashing Department Name Role Phone Angie Riddle MD Unavailable [phone] Hardy Morgan MD PhD Primary Care Provider + Reason for Visit * Diagnostic Imaging (Routine) - Closed Specialty Diagnoses / Procedures Referred By Viridiana oconnor Referred To Contact Procedures Breast Imaging Screening Outside Reference Miscellaneous, Not In File Referral ID Status Reason Start Date Expiration Date Visits Re quested Visits Authorized [id number] Closed 12/18/2022 01/17/2024 1 1 Encounter Details Date Type Department Care Team (Late st Contact Info) Description 05/09/2018 Ancillary Procedure [facility] Outside Films Social History Tobacco Use Types Packs/Day Years Used Date Smoking Tobacco: Former Cigarettes Q uit: 1985 Smokeless Tobacco: Never Alcohol Use Standard Drinks/Week Comments No 0 (1 standard drink = 0.6 oz pur e alcohol) Comments No Sex and Gender Information Value Date Recorded Sex Assigned at Not on file Legal Sex Female 9:31 AM 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 us Not In File Miscellaneous IMG MAMMO PROCEDURES F inal Result [facility] documented in this encounter Visit Diagnoses Not on filedocumented in this encounter Care Teams Supervisor Slashing Department Relationship Specialty Start Date End Date Hardy Morgan MD PhD [address] [facility] [address] [place] [address] PCP - General 12/02/16 08/10/22 Angie Riddle MD [address] [facility] [address] [place] [address] Gynecology 08/19/16 documented as of this encounter
--- OUTSIDE RECORDS SUMMARY | 2024-03-01 05:51 | XMS_ITS | Encounter Summary ---
Author Organization [facility] Address [address] [place] [address] Care Team Providers Care Plant Hr Manager Name Role Phone Angie Riddle MD Unavailable [phone] Hardy Morgan MD PhD Primary Care Provider + Reason for Visit * (Routine) - Closed Specialty Diagnoses / Procedures Referred By Viridiana oconnor Referred To Contact Diagnoses SSS (sick sinus syndrome) (CMS/HCC) ([facility]) Procedures DEVICE CHECK - REMOTE Yoni Matamoros MD [address] [facility] [address], [place] [address] Phone: tel: fax: [facility] Referral ID Status Reason Start Date Expiration Date Visits Re quested Visits Authorized [id number] Closed 03/08/2019 09/16/2020 1 1 Encounter Details Date Type Department Care Team (Latest Contact Info) Description 12/11/2019 8:50 AM CDT Ancillary Procedure [facility] Medical [facility] Cardiology [address] [place] [id number] SSS (sick sinus syndrome) ([facility]) Social History Tobacco Use Types Packs/Day Years Used Date Smoking Tobacco: Former Cigarettes Q uit: 1985 Smokeless Tobacco: Never Alcohol Use Standard Drinks/Week Comments No 0 (1 standard drink = 0.6 oz pur e alcohol) Comments No Sex and Gender Information Value Date Recorded Sex Assigned at Not on file Legal Sex Female 9:31 AM DESIGN TECH Gender Identity Not on file Sexual Orientation Not on file documented as of this encounter Plan of Treatment Not on file documented as of this encounter Procedures Procedure Name Priority Date/Time Associated Diagnosis Comments DEVICE CHECK - REMOTE Routine 12/11/2019 8:31 AM CDT SSS (sick sinus syndrome) (CMS/HCC) documented in this encounter Results * DEVICE CHECK - REMOTE (12/11/2019 8:31 AM CDT) Anatomical Region Laterality Modality Other Narrative 12/12/2019 10:17 AM CDT This patient received a Medtronic Pacemaker. ??They had a routine ??remote transmission on 12/11/2019. Device implant indications: ??Sick sinus syndrome ?? Interrogation of the patient's device demonstrates the following: Presenting EGM: ??A paced V sensed @ 62 bpm Lead Measurements Right Atrium Right Ventricle Sensitivity (mV) Not done mV 5.6-16.0 mV Impedence (Ohms) 581 ohms 525 ohms Pace Threshold 1.125 V @ 0.4 ms 0.625 V @ 0.4 ms Pacing % Not be 5.6 % 0.3 % Battery Status: ??4.5 years to SARMAD Episodes last 90 days/Comments: AF [place] 6.5 however the counters have not been reset since April of 2018. There were numerous mode switch episodes on all just 1 hours and 13 minutes. ??Ventricular rates while ablation ran between 89 and 124 beats per minute. NORMAL DEVICE FUNCTION PROGRAMMED Anti-coagulant(s): ??Pradaxa 150 mg twice daily Anti-arrhythmic(s): ??Cardizem LA 180 mg daily, Toprol-XL 12.5 mg daily Plan: 1) normal Medtronic Pacemaker evaluation 2) Medtronic remote transmission scheduled in 3 months. Jaycob Mar R.N. Yoni Matamoros MD CV CARDIAC SERVICES PRO CEDURES Final Result documented in this encounter Visit Diagnoses Diagnosis SSS (sick sinus syndrome) (CMS/HCC) (HCC) Sinoatrial node dysfunction documented in this encounter Care Teams Plant Hr Manager Relationship Specialty Start Date End Date Hardy Morgan MD PhD [address] [facility] [address] [place] [address] PCP - General 12/02/16 08/10/22 Angie Riddle MD [address] [address] Gynecology 08/19/16 documented as of this encounter
--- OUTSIDE RECORDS SUMMARY | 2024-03-01 05:51 | XMS_ITS | Encounter Summary ---
Author Organization [facility] Healthcare Address [address] [place] [address] Care Team Providers Care Lead Technician Name Role Phone Angie Riddle MD Unavailable [phone] Hardy Morgan MD PhD Primary Care Provider + Encounter Details Date Type Department Care Team (Latest Contact Info) Description 12/02/2016 8:35 AM CDT - 12/02/2016 4:48 PM CDT Hospital Encounter [facility] - Interventional Radiology [address] [place] [address] Smith Ortiz DO [address] [place] [address] [address] [place] [address] Discharge Disposition: Discharge to home or self care Social History Tobacco Use Types Packs/Day Years Used Date Smoking Tobacco: Former Alcohol Use Standard Drinks/Week Comments No 0 (1 standard drink = 0.6 oz pur e alcohol) Comments No Sex and Gender Information Value Date Recorded Sex Assigned at Not on file 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 HISTORY: 76-year-old female with chronic low back pain. FINDINGS: There is good opacification of the thecal sac. ??The conus terminates at the inferior margin of L1. ??There is grade 1 anterolisthesis of L4 in relation L5 and L5 in relation S1. ??There are extensive subchondral cystic changes identified at every level with sclerosis and osteophytes. ??There is severe multilevel hypertrophic facet arthropathy. 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 T12-L1 there is a mild broad-based disc protrusion without significant canal or foraminal compromise. L1-L2 there is a broad-based disc osteophyte complex. ??There is facet and ligamentum flavum hypertrophy resulting in mild canal stenosis with likely moderate foraminal compromise. L2-L3 there is a broad-based disc osteophyte complex with facet and ligamentum flavum hypertrophy resulting in jeex-ok-uujwjziz canal stenosis with encroachment of the lateral recesses and moderate left foraminal compromise. L3-L4 there is a prominent broad-based disc protrusion. ??There is severe facet and ligamentum flavum hypertrophy. ??There is very severe central canal stenosis with marked compression of the thecal sac and severe compromise of the lateral recess and the neural foramina bilaterally at this level. L4-L5 there is grade 1 anterolisthesis with a broad-based disc protrusion. ??There is severe hypertrophic facet arthropathy and ligamentum flavum hypertrophy. ??There is severe central canal stenosis at this level with marked compression and deformity of the thecal sac. ??There is moderate to severe bilateral foraminal compromise. L5-S1 there is grade 1 anterolisthesis with significant subchondral cystic changes. ??There is severe hypertrophic facet arthropathy with moderate to severe compromise of both neural foramina. ??No significant central canal stenosis. The nerve roots of the cauda equina are normally distributed inside the thecal sac. The conus appears normal caliber and contour. There is heavily calcified plaque throughout the visualized abdominal aorta. IMPRESSION: There is very severe multilevel degenerative disc and facet disease with prominent subchondral cystic changes at every level. ??There is severe hypertrophic facet arthropathy. ??There is grade 1 anterolisthesis of L4 in relation L5 and L5 in relation S1. ??There is severe central canal stenosis identified at L3-L4 and L4-L5. ??There are variable degrees of moderate to marked foraminal compromise identified throughout the lumbar spine as detailed above. Electronically signed by: STEPH DON MD Radiologist: STEPH ODN ? Attending: ??SMITH ORTIZ ??D.O. Requesting: SMITH ORTIZ ??D.O. Requesting Fax: ?? Requesting ID: [id number] Attending Fax: ?? Attending ID: ?? [id number] Completed Time: ?? 12/02/2016 11:28 AM Dictated Time: ?N/A Transcribed Time: 12/02/2016 12:55 PM Signed by: ?STEPH DON ?on 12/02/2016 12:55 PM Report To 1 ID: Report To 1 Name: , Report To 1 FAX: Report To 2 ID: Report To 2 Name: , Report To 2 FAX: Report To 3 ID: Report To 3 Name: , Report To 3 FAX: NextGen Order #: Procedure Note Miscellaneous, Not In File / Provider, MD Mikhail - 12/02/2016 Exam: CT lumbar spine postmyelogram with coronal and sagittal reformats. HISTORY: 76-year-old female with chronic low back pain. FINDINGS: There is good opacification of the thecal sac. The conus terminates at the inferior margin of L1. There is grade 1 anterolisthesis of L4 in relation L5 and L5 in relation S1. There are extensive subchondral cystic changes identified at every level with sclerosis and osteophytes. There is severe multilevel hypertrophic facet arthropathy. There are subchondral cystic changes identified in between the posterior spinous processes suggesting Baastrup's disease. T12-L1 there is a mild broad-based disc protrusion without significant canal or foraminal compromise. L1-L2 there is a broad-based disc osteophyte complex. There is facet and ligamentum flavum hypertrophy resulting in mild canal stenosis with likely moderate foraminal compromise. L2-L3 there is a broad-based disc osteophyte complex with facet and ligamentum flavum hypertrophy resulting in jkjv-iy-jgljpsij canal stenosis with encroachment of the lateral recesses and moderate left foraminal compromise. L3-L4 there is a prominent broad-based disc protrusion. There is severe facet and ligamentum flavum hypertrophy. There is very severe central canal stenosis with marked compression of the thecal sac and severe compromise of the lateral recess and the neural foramina bilaterally at this level. L4-L5 there is grade 1 anterolisthesis with a broad-based disc protrusion. There is severe hypertrophic facet arthropathy and ligamentum flavum hypertrophy. There is severe central canal stenosis at this level with marked compression and deformity of the thecal sac. There is moderate to severe bilateral foraminal compromise. L5-S1 there is grade 1 anterolisthesis with significant subchondral cystic changes. There is severe hypertrophic facet arthropathy with moderate to severe compromise of both neural foramina. No significant central canal stenosis. The nerve roots of the cauda equina are normally distributed inside the thecal sac. The conus appears normal caliber and contour. There is heavily calcified plaque throughout the visualized abdominal aorta. IMPRESSION: There is very severe multilevel degenerative disc and facet disease with prominent subchondral cystic changes at every level. There is severe hypertrophic facet arthropathy. There is grade 1 anterolisthesis of L4 in relation L5 and L5 in relation S1. There is severe central canal stenosis identified at L3-L4 and L4-L5. There are variable degrees of moderate to marked foraminal compromise identified throughout the lumbar spine as detailed above. Electronically signed by: STEPH DON MD Radiologist: STEPH DON Attending: SMITH ORITZ D.O. Requesting: SMITH ORTIZ D.O. Requesting Requesting ID: [id number] Attending Attending ID: [id number] Completed Time: 12/02/2016 11:28 AM Dictated Time: N/A Transcribed Time: 12/02/2016 12:55 PM Signed by: STEPH DON on 12/02/2016 12:55 PM Report To 1 ID: Report To 1 Name: , Report To 1 FAX: Report To 2 ID: Report To 2 Name: , Report To 2 FAX: Report To 3 ID: Report To 3 Name: , Report To 3 FAX: NextGen Order #: Smith Ortiz DO IMG CT PROCEDURES Edited Result - Final * XR Spine Lumbar 2 or 3 Views (12/02/2016 4:28 PM CDT) Anatomical Region Laterality Modality Spine N/A Radiographic Kayla ging 12/02/2016 4:28 PM CDT Narrative 12/02/2016 4:28 PM CDT Exam: Lumbar spine 3 views HISTORY: 76-year-old female with low back pain FINDINGS: There is grade 1 anterolisthesis of L4 in relation L5 and L5 in relation S1. ??There is significant loss of disc space with endplate sclerosis and disc osteophytes at every level. ??There is minimal retrolisthesis of L2 in relation to L3 likely resulting from hypertrophic facet arthropathy. No acute fracture. IMPRESSION: Severe multilevel degenerative disc and facet disease. Electronically signed by: STEPH DON MD Radiologist: STEPH DON ? Attending: ??SMITH ORTIZ ??D.O. Requesting: SMITH ORTIZ ??D.O. Requesting Fax: ?? Requesting ID: [id number] Attending Fax: ?? Attending ID: ?? [id number] Completed Time: ?? 12/02/2016 11:28 AM Dictated Time: ?N/A Transcribed Time: 12/02/2016 12:07 PM Signed by: ?STEPH DON ?on 12/02/2016 12:07 PM Report To 1 ID: Report To 1 Name: , Report To 1 FAX: Report To 2 ID: Report To 2 Name: , Report To 2 FAX: Report To 3 ID: Report To 3 Name: , Report To 3 FAX: NextGen Order #: Procedure Note Miscellaneous, Not In File / Provider, MD Mikhail - 12/02/2016 Exam: Lumbar spine 3 views HISTORY: 76-year-old female with low back pain FINDINGS: There is grade 1 anterolisthesis of L4 in relation L5 and L5 in relation S1. There is significant loss of disc space with endplate sclerosis and disc osteophytes at every level. There is minimal retrolisthesis of L2 in relation to L3 likely resulting from hypertrophic facet arthropathy. No acute fracture. IMPRESSION: Severe multilevel degenerative disc and facet disease. Electronically signed by: STEPH DON MD Radiologist: STEPH DON Attending: SMITH ORTIZ D.O. Requesting: SMITH ORTIZ D.O. Requesting Requesting ID: [id number] Attending Attending ID: [id number] Completed Time: 12/02/2016 11:28 AM Dictated Time: N/A Transcribed Time: 12/02/2016 12:07 PM Signed by: STEPH DON on 12/02/2016 12:07 PM Report To 1 ID: Report To 1 Name: , Report To 1 FAX: Report To 2 ID: Report To 2 Name: , Report To 2 FAX: Report To 3 ID: Report To 3 Name: , Report To 3 FAX: NextGen Order #: Smith Ortiz DO IMG XR PROCEDURES Edited Result - Final * Myelogram via Lumbar Puncture (12/02/2016 4:13 PM CDT) Anatomical Region Laterality Modality Spine N/A X-Ray Angiograph y 12/02/2016 4:13 PM CDT Narrative 12/02/2016 4:13 PM CDT Lumbar myelogram, HISTORY: 76-year-old female with chronic low back pain. ?? COMPARISON: None The procedure was explained to the patient, including possible risks complications including bleeding, nerve injury, spinal headache. Informed consent was obtained. Premedication included 5 mg of Valium orally. A Timeout procedure was performed followed by sterile prep and drape. Fluoroscopic localization was also performed. 1 percent lidocaine was utilized for local anesthesia. A 22 gauge 3.5 inch spinal spinal needle was utilized to access the thecal sac from a L3-L4 approach with a single stick. After visualization of clear colorless CSF, 11 cc of Omnipaque-180 were injected into the thecal sac. Radiographs were performed including AP, bilateral oblique, flexion-extension views, followed by CT imaging. The patient tolerated the procedure well. The total fluoroscopy time utilized was 2.4 minutes. Radiographs after contrast injection demonstrate severe multilevel degenerative disc and hypertrophic facet arthropathy with grade 1 anterolisthesis of L4 in relation L5 and L5 in relation S1.. IMPRESSION: Successful lumbar myelogram demonstrating significant multilevel degenerative disc and facet disease. ??Please see detailed level by level report on CT lumbar myelogram obtained on the same day. Electronically signed by: STEPH DON MD Radiologist: STEPH DON ? Attending: ??SMITH ORTIZ ??D.O. Requesting: SMITH ORTIZ ??D.O. Requesting Fax: ?? Requesting ID: [id number] Attending Fax: ?? Attending ID: ?? [id number] Completed Time: ?? 12/02/2016 11:13 AM Dictated Time: ?N/A Transcribed Time: 12/02/2016 1:02 PM Signed by: ?STEPH DON ?on 12/02/2016 1:02 PM Report To 1 ID: Report To 1 Name: , Report To 1 FAX: Report To 2 ID: Report To 2 Name: , Report To 2 FAX: Report To 3 ID: Report To 3 Name: , Report To 3 FAX: NextGen Order #: Procedure Note Miscellaneous, Not In File / Provider, MD Mikhail - 12/02/2016 Lumbar myelogram, HISTORY: 76-year-old female with chronic low back pain. COMPARISON: None The procedure was explained to the patient, including possible risks complications including bleeding, nerve injury, spinal headache. Informed consent was obtained. Premedication included 5 mg of Valium orally. A Timeout procedure was performed followed by sterile prep and drape. Fluoroscopic localization was also performed. 1 percent lidocaine was utilized for local anesthesia. A 22 gauge 3.5 inch spinal spinal needle was utilized to access the thecal sac from a L3-L4 approach with a single stick. After visualization of clear colorless CSF, 11 cc of Omnipaque-180 were injected into the thecal sac. Radiographs were performed including AP, bilateral oblique, flexion-extension views, followed by CT imaging. The patient tolerated the procedure well. The total fluoroscopy time utilized was 2.4 minutes. Radiographs after contrast injection demonstrate severe multilevel degenerative disc and hypertrophic facet arthropathy with grade 1 anterolisthesis of L4 in relation L5 and L5 in relation S1.. IMPRESSION: Successful lumbar myelogram demonstrating significant multilevel degenerative disc and facet disease. Please see detailed level by level report on CT lumbar myelogram obtained on the same day. Electronically signed by: STEPH DON MD Radiologist: STEPH DON Attending: SMITH ORTIZ D.O. Requesting: SMITH ORTIZ D.O. Requesting Requesting ID: [id number] Attending Attending ID: [id number] Completed Time: 12/02/2016 11:13 AM Dictated Time: N/A Transcribed Time: 12/02/2016 1:02 PM Signed by: STEPH DON on 12/02/2016 1:02 PM Report To 1 ID: Report To [...] on filedocumented in this encounter Care Teams Lead Technician Relationship Specialty Start Date End Date Hardy Morgan MD PhD [address] [facility] [address] [place] [address] PCP - General 12/02/16 08/10/22 Angie Riddle MD [address] [place] [address] Gynecology 08/19/16 documented as of this encounter
--- OUTSIDE RECORDS SUMMARY | 2024-03-01 05:51 | XMS_ITS | Encounter Summary ---
Author Organization [facility] Address [address] [place] [address] Care Team Providers Care Product Grader Name Role Phone Angie Riddle MD Unavailable [phone] Hardy Morgan MD PhD Primary Care Provider + Reason for Visit * Reason Onset Date Comments send letter with transmission results 09/12/2018 Encounter Details Date Type Department Care Team (Late st Contact Info) Description 09/12/2018 Telephone [facility] Cardiology [address] [place] [address] Nilton Cho MD [address] [facility] [address] [place], [place] [id number] send letter with transmission results Social History Tobacco Use Types Packs/Day Years Used Date Smoking Tobacco: Former Cigarettes Q uit: 1985 Smokeless Tobacco: Never Alcohol Use Standard Drinks/Week Comments No 0 (1 standard drink = 0.6 oz pur e alcohol) Comments No Sex and Gender Information Value Date Recorded Sex Assigned at Not on file 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 Thanks Francine documented in this encounter Plan of Treatment Not on file documented as of this encounter Visit Diagnoses Not on filedocumented in this encounter Care Teams Product Grader Relationship Specialty Start Date End Date Hardy Morgan MD PhD [address] [facility] [address] [place] [address] PCP - General 12/02/16 08/10/22 Angie Riddle MD [address] [facility] [address] [place] [address] Gynecology 08/19/16 documented as of this encounter
--- OUTSIDE RECORDS SUMMARY | 2024-03-01 05:51 | XMS_ITS | Encounter Summary ---
Author Organization [facility] Address [address] [facility] [address] [facility] [address] [place] [address] Care Team Providers Care Pantry Chef Name Role Phone Angie Riddle MD Unavailable [phone] Hardy oMrgan MD PhD Primary Care Provider + Reason for Visit * Reason Comments Device Check and OV with Dr. 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[employer] Ancillary Procedure [facility] Cardiology [address] [place] [address] Sick sinus syndrome (CMS/HCC); Pacemaker; Paroxysmal atrial fibrillation (CMS/HCC) Social History Tobacco Use Types Packs/Day Years Used Date Smoking Tobacco: Former Cigarettes Q uit: 1985 Smokeless Tobacco: Never Alcohol Use Standard Drinks/Week Comments No 0 (1 standard drink = 0.6 oz pur e alcohol) Comments No Sex and Gender Information Value Date Recorded Sex Assigned at Not on file 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 Chronic A lead is from 09-13-03. She is in the office today for a device check and OV with Dr. Cho. She takes Pradaxa for anticoagulation and Diltiazem andMetoprolol for arrhythmias per med list. Interrogation of the patient???s device demonstrates Appropriate DDD pacer function Appropriate battery voltage, Stable lead impedances, Stable atrial and RV sensing TH Stable Atrial and RV pacing thresholds. (2028 MS) (235 AHR) atrial arrhythmias noted, total 3.2 %, longest episode lasted 15.5 hours on 04/22/17, IEGMs appear AT/AF. (0) ventricular arrhythmias noted. AP-97.8 %, RV paced 0.3 % Presenting-AP/VS @ 77 ppm Underlying AP/VS @ 40 ppm Magnet rate DOO 85 ppm Battery-2.79 V, 4.5 years to SARMAD, 790 ohms Atrial-Paced mv, 581 ohms, 2.0 V @ 0.4 ms RV-8.0-11.2 mv, 553 ohms, 0.75 V @ 0.4 ms Plan: 1) DDD pacemaker evaluation as noted above. 2) Carelink remote transmissions as scheduled. 3) Patient given next 3 dates for next remotes on Carelink Remote Transmission Schedule form. Jessica Real RN [employer] documented in this encounter Plan of Treatment Not on file documented as of this encounter Procedures Procedure Name Priority Date/Time Associated Diagnosis Comments DEVICE CHECK - IN OFFICE Routine 04/18/2018 9:33 AM SUPERINTENDENT MAINTE[employer] Sick sinus syndrome (CMS/HCC) documented in this encounter Results * DEVICE CHECK - IN OFFICE (04/18/2018 9:33 AM SUPERINTENDENT MAINTE[employer]) Anatomical Region Laterality Modality Other Narrative 04/19/2018 10:30 AM SUPERINTENDENT MAINTE[employer] This patient received a 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 Chronic A lead is from 09-13-03. ??She is in the office today for a device check and OV with Dr. Cho. ??She takes Pradaxa for anticoagulation and Diltiazem and Metoprolol for arrhythmias per med list. ? Interrogation of the patient? s device demonstrates Appropriate DDD pacer function Appropriate battery voltage, Stable lead impedances, Stable atrial and RV sensing TH Stable Atrial and RV pacing thresholds. ?? (2028 MS) (235 AHR) atrial arrhythmias noted, total 3.2 %, longest episode lasted 15.5 hours on 04/22/17, IEGMs appear AT/AF. (0) ventricular arrhythmias noted. AP-97.8 %, RV paced 0.3 % Presenting-AP/VS @ 77 ppm Underlying AP/VS @ 40 ppm Magnet rate DOO 85 ppm Battery-2.79 V, 4.5 years to SARMAD, 790 ohms Atrial-Paced mv, 581 ohms, 2.0 V @ 0.4 ms RV-8.0-11.2 mv, 553 ohms, 0.75 V @ 0.4 ms Plan: 1) DDD pacemaker evaluation as noted above. 2) Carelink remote transmissions as scheduled. 3) Patient given next 3 dates for next remotes on Carelink Remote Transmission Schedule form. Jessica Real RN Nilton Cho MD CV CARDIAC SERVICES PROCEDUR ES Final Result documented in this encounter Visit Diagnoses Diagnosis Sick sinus syndrome (CMS/HCC) (HCC) Sinoatrial node dysfunction Pacemaker Cardiac pacemaker in situ Paroxysmal atrial fibrillation (CMS/HCC) (HCC) Atrial fibrillation documented in this encounter Care Teams Pantry Chef Relationship Specialty Start Date End Date Hardy Morgan MD PhD [address] [facility] [address] [place] [address] PCP - General 12/02/16 08/10/22 Angie Riddle MD [address] [address] Gynecology 08/19/16 documented as of this encounter
--- OUTSIDE RECORDS SUMMARY | 2024-03-01 05:51 | XMS_ITS | Encounter Summary ---
Author Organization [facility] Address [address] [place] [address] Care Team Providers Care Millwork Estimator Name Role Phone Angie Riddle MD Unavailable [phone] Hardy Morgan MD PhD Primary Care Provider + Encounter Details Date Type Department Care Team (Late st Contact Info) Description 04/15/2018 Orders Only [facility] Cardiology [address] [facility] [address] [address] [place] [address] Nilton Cho MD [address] [facility] [address] [place] [address] Sick sinus syndrome (CMS/HCC) (Primary Dx) Social History Tobacco Use Types Packs/Day Years Used Date Smoking Tobacco: Former Cigarettes Q uit: 1985 Smokeless Tobacco: Never Alcohol Use Standard Drinks/Week Comments No 0 (1 standard drink = 0.6 oz pur e alcohol) Comments No Sex and Gender Information Value Date Recorded Sex Assigned at Not on file 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
--- OUTSIDE RECORDS SUMMARY | 2024-03-01 05:51 | XMS_ITS | Encounter Summary ---
Author Organization [facility] Medical Group Address [address] [place] [address] Care Team Providers Care Cob Sawyer Name Role Phone Angie Riddle MD Unavailable Hardy Morgan MD PhD Primary Care Provider + Reason for Visit * (Routine) - Closed Specialty Diagnoses / Procedures Referred By Viridiana oconnor Referred To Contact Diagnoses SSS (sick sinus syndrome) (CMS/HCC) ([facility]) Procedures DEVICE CHECK - REMOTE Yoni Matamoros MD [address] [facility] [address], [place] [address] Phone: tel: fax: [facility] Referral ID Status Reason Start Date Expiration Date Visits Re quested Visits Authorized [id number] Closed 03/08/2019 09/16/2020 1 1 Encounter Details Date Type Department Care Team (Latest Contact Info) Description 06/07/2019 1:00 PM CDT Ancillary Procedure [facility] Medical [facility] Cardiology [address] [facility] [address] [place] [id number] SSS (sick sinus syndrome) (CMS/HCC); Pacemaker Social History Tobacco Use Types Packs/Day Years Used Date Smoking Tobacco: Former Cigarettes Q uit: 1985 Smokeless Tobacco: Never Alcohol Use Standard Drinks/Week Comments No 0 (1 standard drink = 0.6 oz pur e alcohol) Comments No Sex and Gender Information Value Date Recorded Sex Assigned at Not on file Legal Sex Female 9:31 AM GOLD LAYER Gender Identity Not on file Sexual Orientation Not on file documented as of this encounter Plan of Treatment Not on file documented as of this encounter Procedures Procedure Name Priority Date/Time Associated Diagnosis Comments DEVICE CHECK - REMOTE Routine 06/07/2019 8:54 AM CDT SSS (sick sinus syndrome) (CMS/HCC) documented in this encounter Results * DEVICE CHECK - REMOTE (06/07/2019 8:54 AM CDT) Anatomical Region Laterality Modality Other Narrative 06/09/2019 10:32 AM CDT This patient received a Medtronic Pacemaker. ??They had a routine Medtronic remote transmission on 06/07/2019. Device implant indications: ??Sick sinus syndrome, AFib ?? Interrogation of the patient's device demonstrates the following: Presenting EGM: ??AF with V sensing @ 95 bpm Lead Measurements Right Atrium Right Ventricle Sensitivity (mV) Not done mV 5.6-16 mV Impedence (Ohms) 637 ohms 547 ohms Pace Threshold 1.375 V @ 0.4 ms 0.625 V @ 0.4 ms Pacing % 97 % 0.3 % Battery Status: ??4.5 years to SARMAD Episodes last 90 days/Comments: AF [place] 4.2 %, longest duration 15 hours and 20 minutes on September 23, 2018. Patient went into an atrial flutter on 06/07/2019 at 3:36 a.m. and remains in that rhythm as far as presenting is seen this a.m. Average ventricular rates ranged between 60 and 124bpm when in atrial fibrillation. NORMAL DEVICE FUNCTION PROGRAMMED Anti-coagulant(s): ??Pradaxa 150 mg twice daily Anti-arrhythmic(s): ??Cardizem LA 180 mg, Toprol XL 25 mg once daily Plan: 1) normal Medtronic Pacemaker evaluation 2) Medtronic remote transmission scheduled in 3 months. 3) Letter sent with transmission results Zhanna Enriquez R.N. Yoni Matamoros MD [facility] PRO CEDURES Final Result documented in this encounter Visit Diagnoses Diagnosis SSS (sick sinus syndrome) (CMS/HCC) (HCC) Sinoatrial node dysfunction Pacemaker Cardiac pacemaker in situ documented in this encounter Care Teams Cob Sawyer Relationship Specialty Start Date End Date Hardy Morgan MD PhD [address] [facility] [address] [place] [address] PCP - General 12/02/16 08/10/22 Angie Riddle MD [address] [place] [address] Gynecology 08/19/16 documented as of this encounter
--- OUTSIDE RECORDS SUMMARY | 2024-03-01 05:51 | XMS_ITS | Encounter Summary ---
Author Organization [facility] Medical Group Address [address] [place] [address] Care Team Providers Care Machine Learning Intern Name Role Phone Lida Land MD Primary Care Provider [phone] Angie Riddle MD Unavailable [phone] Encounter Details Date Type Department Care Team (Late st Contact Info) Description 09/02/2016 Telephone [facility] [address] [facility] [address] [place] [id number] Luisa Claudio, SOLAR SALES REPRESENTATIVE [address] [facility] [address] [place] [id number] Social History Tobacco Use Types Packs/Day Years Used Date Smoking Tobacco: Former Alcohol Use Standard Drinks/Week Comments No 0 (1 standard drink = 0.6 oz pur e alcohol) Comments No Sex and Gender Information Value Date Recorded Sex Assigned at Not on file Legal Sex Female 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 Gender Identity Not on file Sexual Orientation Not on file documented as of this encounter Miscellaneous Notes * Telephone Encounter - Luisa Claudio WHNP - 09/02/2016 1:57 PM CDT duplicate documented in this encounter Plan of Treatment Not on file documented as of this encounter Visit Diagnoses Not on filedocumented in this encounter Care Teams Machine Learning Intern Relationship Specialty Start Date End Date Lida Land MD [address] [facility] [address] [facility] [address] [place] [address] PCP - General 05/29/16 12/01/16 Angie Riddle MD [address] [place] [address] Gynecology 08/19/16 documented as of this encounter
--- OUTSIDE RECORDS SUMMARY | 2024-03-01 05:51 | XMS_ITS | Encounter Summary ---
Author Organization [facility] Medical Group Address [address] [facility] [address] [place] [address] Care Team Providers Care Pipe Fitter Supervisor Maintenance Name Role Phone Angie Riddle MD Unavailable [phone] Hardy Morgan MD PhD Primary Care Provider + Reason for Visit * Reason Comments Atrial Fibrillation Hypertension Encounter Details Date Type Department Care Team (Late st Contact Info) Description 04/18/2018 9:30 AM CHARGE POSTER Office Visit [facility] [place] [address] [facility] [address] [place] [address] Nilton Cho MD [address] [facility] [address] [place] [address] Paroxysmal atrial fibrillation (CMS/HCC) (Primary Dx); Essential hypertension; Pure hypercholesterolemia; Pacemaker Social History Tobacco Use Types Packs/Day Years Used Date Smoking Tobacco: Former Cigarettes Q uit: 1985 Smokeless Tobacco: Never Alcohol Use Standard Drinks/Week Comments No 0 (1 standard drink = 0.6 oz pur e alcohol) Comments No Sex and Gender Information Value Date Recorded Sex Assigned at Not on file Legal Sex Female 9:31 AM CHARGE POSTER Gender Identity Not on file Sexual Orientation Not on file documented as of this encounter Last Filed Vital Signs Vital Sign Reading Time Taken Comments Blood Pressure 136/80 04/18/2018 9:59 AM CHARGE POSTER Pulse 64 04/18/2018 9:59 AM CHARGE POSTER Temperature - - Respiratory Rate - - Oxygen Saturation - - Inhaled Oxygen Concentration - - Weight 53.3 kg (117 lb 9.6 oz) 04/18/2018 9:59 A M CHARGE POSTER Height 162.6 cm (5' 4 ) 04/18/2018 9:59 AM CHARGE POSTER Body Mass Index 20.19 04/18/2018 9:59 AM CHARGE POSTER documented in this encounter Progress Notes * Nilton Cho MD - 04/18/2018 9:30 AM CST [facility] [place] [address] [id number] Patient Name: Francine Erwin Provider: Nilton Cho MD : [id number] Date of Service: 04/18/2018 Referring: Cathy CHIEF COMPLAINT: Atrial Fibrillation and Hypertension HISTORY OF PRESENT ILLNESS: 78 y.o. female with a history of paroxysmal atrial fibrillation and a permanent pacemaker She returns without cardiac complaints. She denies any chest pain, palpitations, presyncope, syncope, or any worrisome complaints. Her device check today showed multiple mode switches. The longest episode was for 15 hr of atrial fibrillation. She is unaware of this. She remains anticoagulated with Pradaxa. Chronic problems include sick sinus syndrome and permanent pacemaker in 2004. She subsequently had a lead fracture and had a dual-chamber pacemaker revision with Dr. Fitzgerald in 2010. She is under lot of stress at home with some family situations, but is handling this well. MEDICATIONS: Outpatient Encounter Prescriptions as of 04/18/2018 Medication Sig Dispense Refill ??? atorvastatin (LIPITOR) 20 mg tablet Take 10 mg by mouth daily. ??? biotin 2,500 mcg capsule take 2 capsules daily 0 0 ??? dabigatran (PRADAXA) 150 mg capsule Take 1 capsule (150 mg total) by mouth 2 (two) times a day.180 capsule 0 ??? diltiazem LA (CARDIZEM LA) 180 mg 24 hr tablet take 1 tablet by oral route every day 0 0 ??? gabapentin (NEURONTIN) 100 mg capsule Take 1 capsule by mouth daily. ??? meloxicam (MOBIC) 15 mg tablet take 1 tablet by oral route every day as needed 0 0 ??? metoprolol XL (TOPROL-XL) 25 mg 24 hr tablet take 1/2 tablet (25MG) by oral route every day 0 ??? multivitamin tablet tablet take 1 by Oral route once 0 0 ??? omega-3 fatty acids-vitamin E (FISH OIL) 1,000 mg capsule take 1 by Oral route 3 times every day (Patient taking differently: 1,000 mg daily. ) 0 0 ??? VIT C/E/ZN/COPPR/LUTEIN/ZEAXAN (PRESERVISION AREDS 2 ORAL) Take by mouth. Take 2 capsules daily ??? [DISCONTINUED] PRADAXA 150 mg capsule TAKE ONE CAPSULE BY MOUTH TWICE DAILY. 180 capsule 3 No facility-administered encounter medications on file as of 04/18/2018. PAST MEDICAL HISTORY: Past Medical History: Diagnosis Date ??? Breast mass, left 08/19/2016 ??? Hyperlipidemia Hyperlipidemia; Comments: [facility] 07/20/2013 - ??? Hypertension Hypertension; Comments: [facility] 07/20/2013 - ??? 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 Chronic A lead is from 09-13-03. Lia implant-Marquis Card. ??? Paroxysmal atrial fibrillation (CMS/HCC) PAF - Paroxysmal atrial fibrillation; Comments: [facility] 07/20/2013 - ??? Sick sinus syndrome (CMS/HCC) SSS; Comments: [facility] 07/20/2013 - Past Surgical History: Procedure Laterality Date ??? CARDIAC PACEMAKER PLACEMENT 2011 Cardiac pacemaker ??? CARDIAC PACEMAKER PLACEMENT Cardiac pacemaker ??? INSERT / REPLACE / REMOVE PACEMAKER Family History Problem Relation Age of Onset ??? Coronary artery disease Father Coronary Artery Bypass Graft; ??? Lung cancer Father Cancer, lung; Cause of : Cancer, lung ??? Other Other Family history of [place]; ??? [place]/ [place] Mother ??? Skin cancer Mother Social History Social History ??? Marital status: Spouse name: N/A ??? Number of children: N/A ??? Years of education: N/A Social History Main Topics ??? Smoking status: Former Smoker Packs/day: 0.50 Quit date: 1984 ??? Smokeless tobacco: Never Used ??? Alcohol use No ??? Drug use: No ??? Sexual activity: Not Asked Other Topics Concern ??? None Social History Narrative ??? None REVIEW OF SYSTEMS: General: No fever, chills, malaise or fatigue Eyes: No alterations in visual acuity ENT: No alterations in auditory acuity, no sore throat Pulmonary: No dyspnea, cough or hemoptysis Cardiac: No chest pain, orthopnea, PND or palpitations GI: No nausea, vomiting, diarrhea or constipation Musculoskeletal: No myalgias or arthralgias Skin: no rashes Neuro: No headaches, parathesias or focal neurological complaints Endocrine: No cold or heat intolerance Heme: no excessive bleeding or bruising PHYSICAL EXAM: BP 136/80 (BP Location: Right arm, Patient Position: Sitting) Pulse 64 Ht 162.6 cm (5' 4 ) Wt53.3 kg (117 lb 9.6 oz) BMI 20.19 kg/m?? General: Well appearing, No pain or distress, well nourished Eyes: ALEJANDRA/EOMI, Conjuctiva Clear ENT: External ears/nose normal Neck: Supple Respiratory: Clear. Nonlabored Cardiovascular: RRR, Gastrointestinal: soft, non-tender abdomen Extremities: no cyanosis or clubbing or edema Musculoskeletal: no obvious joint deformities Skin: no obvious rash or bruising Psychiatric: normal affect Neurologic: awake/alert, no focal deficits ASSESSMENT & PLAN: Diagnoses and all orders for this visit: Paroxysmal atrial fibrillation (CMS/HCC) (Primary) Discussed the need for ongoing anticoagulation. Multiple mode switches noted on pacemaker interrogation today Essential hypertension Maximal medical therapy for control. Low salt diet. Exercise. Monitor as outpatient. Pure hypercholesterolemia - POCT lipid panel Pacemaker Nilton Cho MD GE POSTER documented in this encounter Plan of Treatment Not on file documented as of this encounter Procedures Procedure Name Priority Date/Time Associated Diagnosis Comments POCT LIPID PANEL Routine 04/18/2018 10:2 2 AM CHARGE POSTER Pure hypercholesterolemia documented in this encounter Results * POCT lipid panel (04/18/2018 10:22 AM CHARGE POSTER) Cholesterol, POC 173 mg/dL HDL, POC 69 mg/dL Triglycerides, POC 123 mg/dL LDL Cholesterol POC 80 mg/dL Capillary blood 04/18/2018 1 0:22 AM CHARGE POSTER us Nilton Cho MD POINT OF CARE TEST ORDERABLE S Final Result documented in this encounter Visit Diagnoses Diagnosis Paroxysmal atrial fibrillation (CMS/HCC) (HCC)- Primary Atrial fibrillation Essential hypertension Unspecified essential hypertension Pure hypercholesterolemia Pacemaker Cardiac pacemaker in situ documented in this encounter Historical Medications * This list may reflect changes made after this encounter. gabapentin (NEURONTIN) 100 mg capsule Take 1 capsule by mouth daily. 08/12/2020 atorvastatin (LIPITOR) 20 mg tablet Take 0.5 tablets (10 mg total) by mouth daily 08/11/2022 added in this encounter Care Teams Pipe Fitter Supervisor Maintenance Relationship Specialty Start Date End Date Hardy Morgan MD PhD [address] [facility] [address] [place] [address] PCP - General 12/02/16 08/10/22 Angie Riddle MD [address] [place] [address] Gynecology 08/19/16 documented as of this encounter
--- OUTSIDE RECORDS SUMMARY | 2024-03-01 05:51 | XMS_ITS | Encounter Summary ---
Author Organization [facility] Medical [facility] Address [address] [place] [address] Care Team Providers Care Production Recorder Name Role Phone Angie Riddle MD Unavailable [phone] Hardy Morgan MD PhD Primary Care Provider + Reason for Visit * Reason Comments Device Evaluation routine carelink rem ote * Cardiology (Routine) - Canceled Specialty Diagnoses / Procedures Referred By Contac t Referred To Contact Diagnoses Sick sinus syndrome (CMS/HCC) (HCC) Procedures DEVICE CHECK - REMOTE Nilton Cho MD Phone: tel: fax: Referral ID Status Reason Start Date Expiration Date V isits Requested Visits Authorized [id number] Canceled 08/26/2016 02/22/2017 1 1 Encounter Details Date Type Department Care Team (Latest Contact Info) Description 06/14/2017 7:00 AM CDT Ancillary Procedure [facility] Medical [facility] Cardiology [address] [address] [facility] [address] [place] [address] Sick sinus syndrome (CMS/HCC); Pacemaker Social History Tobacco Use Types Packs/Day Years Used Date Smoking Tobacco: Former Cigarettes Q uit: 1985 Smokeless Tobacco: Never Alcohol Use Standard Drinks/Week Comments No 0 (1 standard drink = 0.6 oz pur e alcohol) Comments No Sex and Gender Information Value Date Recorded Sex Assigned at Not on file Legal Sex Female 9:31 AM INSIDE POLISHER Gender Identity Not on file Sexual Orientation Not on file documented as of this encounter Progress Notes * Jessica Real RN - 06/14/2017 7:00 AM CDT This patient received a 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 Chronic A lead is from 09-13-03. This is a routine Carelink remote evaluation on 06/14/17. She takes Pradaxa for anticoagulation and Diltiazem and Metoprolol for arrhythmias. Interrogation of the patient???s device demonstrates Appropriate DDD pacer function Appropriate battery voltage, Stable lead impedances, Stable atrial and RV sensing TH Stable Atrial and RV pacing thresholds. (1689) atrial arrhythmias noted, total 3.3%, longest episode lasted 15.5 hours, IEGMs appear AT/AF. (0) ventricular arrhythmias noted. AP-97.8 %, RV paced 0.4 % Presenting-A Paced/V Sensed Battery-2.8 V, 6.5 years to SARMAD, Atrial-Paced mv, 580 ohms, 1.5 V @ 0.4 ms RV-5.6-16.0 mv, 558 ohms, 0.625 V @ 0.4 ms Plan: 1) DDD pacemaker evaluation as noted above. 2) Carelink remote transmissions in 3, 6, and 9 months. Jessica Real RN Reviewed with Francine Gentile RN, [facility], CCDS-Arrhythmia Device Specialist documented in this encounter Plan of Treatment Not on file documented as of this encounter Procedures Procedure Name Priority Date/Time Associated Diagnosis Comments DEVICE CHECK - REMOTE Routine 06/14/2017 3:57 PM CDT Sick sinus syndrome (CMS/HCC) documented in this encounter Results * DEVICE CHECK - REMOTE (06/14/2017 3:57 PM CDT) Anatomical Region Laterality Modality Other Nilton Cho MD CV CARDIAC SERVICES PROCEDUR ES Final Result documented in this encounter Visit Diagnoses Diagnosis Sick sinus syndrome (CMS/HCC) (HCC) Sinoatrial node dysfunction Pacemaker Cardiac pacemaker in situ documented in this encounter Care Teams Production Recorder Relationship Specialty Start Date End Date Hardy Morgan MD PhD [address] [place] [address] PCP - General 12/02/16 08/10/22 Angie Riddle MD [address] [place] [address] Gynecology 08/19/16 documented as of this encounter
--- OUTSIDE RECORDS SUMMARY | 2024-03-01 05:51 | XMS_ITS | Encounter Summary ---
Author Organization [facility] Medical Group Address [address] [place] [address] Care Team Providers Care Seniour Insight Manager Name Role Phone Angie Riddle MD Unavailable Hardy Morgan MD PhD Primary Care Provider + Reason for Visit * (Routine) - Closed Specialty Diagnoses / Procedures Referred By Viridiana oconnor Referred To Contact Diagnoses SSS (sick sinus syndrome) (CMS/HCC) ([facility]) Procedures DEVICE CHECK - REMOTE Nilton Cho MD Phone: tel: fax: [facility] Medical Group Referral ID Status Reason Start Date Expiration Date Visits Re quested Visits Authorized [id number] Closed 09/06/2018 03/17/2020 1 1 Encounter Details Date Type Department Care Team (Latest Contact Info) Description 12/12/2018 11:15 AM CDT Ancillary Procedure [facility] Medical [facility] Cardiology [address] [place] [address] SSS (sick sinus syndrome) ([facility]) Social History Tobacco Use Types Packs/Day Years Used Date Smoking Tobacco: Former Cigarettes Q uit: 1985 Smokeless Tobacco: Never Alcohol Use Standard Drinks/Week Comments No 0 (1 standard drink = 0.6 oz pur e alcohol) Comments No Sex and Gender Information Value Date Recorded Sex Assigned at Not on file Legal Sex Female 9:31 AM SENIOR 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 ??They had a routine Carelink remote transmission on 12/12/2018. Device implant indications: SSS/AF ?? Interrogation of the patient's device demonstrates the following: Presenting EGM: ??Ap Vs @ 60 bpm Lead Measurements Right Atrium Right Ventricle Sensitivity (mV) paced 5.6-16.0 mV Impedence (Ohms) 588 ohms 561 ohms Pace Threshold 1.125 V @ 0.4 ms 0.625 V @ 0.4 ms Pacing % 97.1 % 0.3 % Battery Status: ??5.5 years to SARMAD Episodes last 90 days/Comments: AF [place] 4.3 %, 2 days total time, longest duration 15 hours, average time <1 hour 632 AT/AF events - appears AFib NORMAL DEVICE FUNCTION PROGRAMMED Anti-coagulant(s): Pradaxa Anti-arrhythmic(s): metoprolol Plan: 1) Medtronic Pacemaker evaluation 2) Carelink remote transmission scheduled in 3 months. 3) Letter sent with transmission results Shahram Yanez (R), [facility], CCDS - Certified Cardiac Device Specialist Nilton Cho MD CV CARDIAC SERVICES PROCEDUR ES Final Result documented in this encounter Visit Diagnoses Diagnosis SSS (sick sinus syndrome) (CMS/HCC) (HCC) Sinoatrial node dysfunction documented in this encounter Care Teams Seniour Insight Manager Relationship Specialty Start Date End Date Hardy Morgan MD PhD [address] [facility] [address] [place] [address] PCP - General 12/02/16 08/10/22 Angie Riddle MD [address] [place] [address] Gynecology 08/19/16 documented as of this encounter
--- OUTSIDE RECORDS SUMMARY | 2024-03-01 05:51 | XMS_ITS | Encounter Summary ---
Author Organization [facility] Medical [facility] Address [address] [place] [address] Care Team Providers Care Risk Control Specialist Name Role Phone Angie Riddle MD Unavailable [phone] Hardy Morgan MD PhD Primary Care Provider + Reason for Referral * Cardiology (Routine) - Closed Specialty Diagnoses / Procedures Referred By Viridiana oconnor Referred To Contact Diagnoses Pacemaker Procedures DEVICE CHECK - IN OFFICE Yoni Matamoros MD [address] [facility] [address], [place] [address] Phone: tel: fax: [facility] Referral ID Status Reason Start Date Expiration Date Visits Re quested Visits Authorized [id number] Closed 08/12/2020 09/11/2021 1 1 Reason for Visit * Reason Comments Atrial Fibrillation Encounter Details Date Type Department Care Team (Late st Contact Info) Description 08/12/2020 10:45 AM CDT Office Visit [facility] Cardiology [address], [place] [id number] Yoni Matamoros MD [address] [facility] [address], [place] [address] Paroxysmal atrial fibrillation (CMS/HCC) (Primary Dx); SSS (sick sinus syndrome) (CMS/HCC); Pacemaker Social History Tobacco Use Types Packs/Day Years Used Date Smoking Tobacco: Former Cigarettes Q uit: 1985 Smokeless Tobacco: Never Alcohol Use Standard Drinks/Week Comments No 0 (1 standard drink = 0.6 oz pur e alcohol) Comments No Sex and Gender Information Value Date Recorded Sex Assigned at Not on file 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 Gender Identity Not on file Sexual Orientation Not on file documented as of this encounter Last Filed Vital Signs Vital Sign Reading Time Taken Comments Blood Pressure 136/82 08/12/2020 10:43 AM CDT Pulse 61 08/12/2020 10:43 AM CDT Temperature - - Respiratory Rate - - Oxygen Saturation - - Inhaled Oxygen Concentration - - Weight 49.9 kg (110 lb) 08/12/2020 10:43 AM CDT Height 162.6 cm (5' 4 ) 08/12/2020 10:43 AM CDT Body Mass Index 18.88 08/12/2020 10:43 AM CDT documented in this encounter Ordered Prescriptions Prescription Sig Dispense Quantity Refills Last Filled Start Date End Date metoprolol XL (TOPROL-XL) 25 mg extended release tabletIndications: Paroxysmal atrial fibrillation (CMS/HCC) (HCC) Take 1 tablet (25 mg total) by mouth daily 90 tablet 3 08/12/2020 08/08/2021 documented in this encounter Progress Notes * Yoni Matamoros MD - 08/12/2020 10:45 AM CDT Images from the original note were not included. [facility] Cardiology [facility], [address] [place], [place], [address] Cardiology Electrophysiology MD Cesar Gaspar,, MD Jonathan Garcia, MD Skinny Fitzgerald, MD Nilton Mason, MD Nilton Cho, MD Quiana Cifuentes, JAZZ SINGER Jacob Infante, DO Antonio Canela, MD Rajendra Nunes, MD Linda Carlton, MD Tomer Maldonado, DO MD Tati Ramirez, JAZZ SINGER Shakira Maradiaga, JAZZ SINGER Claudia Diaz, JAZZ SINGER Patient Name: Francine Erwin Provider: Yoni Matamoros MD : 1940 Date of Service: 08/12/2020 Referring: Cathy CHIEF COMPLAINT: Atrial Fibrillation HISTORY OF PRESENT ILLNESS: 80 y.o. female with paroxysmal atrial fibrillation, permanent pacemaker placement On chronic anticoagulation with Pradaxa Soft via telemedicine last year Overall doing well Occasionally feels like her heart races, which she mentions again today In the past she has not been symptomatic but, occasionally asymptomatic for short times now, thoughnot enough that she says that she necessarily wants to do anything about Continuing to work out at home and feels well She is quite active exercising every day Tolerating Pradaxa well no bleeding or bruising She had an interrogation of her pacemaker which she has for sick sinus in. Normal functioning device, for she does have about a 6% AFib burden with episodes tachycardia up into the 160 I reviewed this patient's Allergies and Current [...] stated in HPI above. PHYSICAL EXAM: BP 136/82 (BP Location: Right arm, Patient Position: Sitting) Pulse 61 Ht 162.6 cm (5' 4 ) Wt49.9 [...] awake/alert, no focal deficits MDM Problems Addressed: ICD-9-CM ICD-10-CM 1. Paroxysmal atrial fibrillation (CMS/HCC) 427.31 I48.0 2. SSS (sick sinus syndrome) (CMS/HCC) 427.81 I49.5 3. Pacemaker V45.01 Z95.0 Data Reviewed: 1. Results: Reviewed device interrogation report, 6% AFib burden episodes of AFib with RVR up into the 160 2. New Orders: Will increase metoprolol XL from 12.5-->25 mg daily, for some additional rate control when she is in AFib with RVR ASSESSMENT & PLAN DISCUSSION Diagnoses and all orders for this visit: Paroxysmal atrial fibrillation (CMS/HCC) (Primary) - known paroxysmal AFib - sick sinus/tachy-ann syndrome - interrogations as about a 6% AFib burden - she has symptomatic on occasion with RVR up into the 160s, longest episode is 17 hours in duration (though not necessary that tachycardic the entire to) - she says she does get symptoms and feels that when she is in AFib but, does not necessarily thinkthat she needs a significant amount of more aggressive therapy - is willing to increase metoprolol however Plan - increase metoprolol from 12.5mg --> 25mg daily - continue Pradaxa for CVA prophylaxis SSS (sick sinus syndrome) (CMS/HCC) Pacemaker - pacemaker interrogated today normal functioning - about 4 years left on battery Yoni Matamoros MD [facility] English Lecturer This note was dictated in part using [employer] voice recognition software. Despite careful review of [...] to SARMAD Episodes last 90 days/Comments: AF [place] 4.8 %, longest duration of 12 hours [...] Skyler Yuan R.N. with Deedee Enriquez R.N. Yoni Matamoros MD [facility] PRO CEDURES Final Result documented in this encounter Visit Diagnoses Diagnosis Paroxysmal atrial fibrillation (CMS/HCC) (HCC)- Primary Atrial fibrillation SSS (sick sinus syndrome) (CMS/HCC) (HCC) Sinoatrial node dysfunction Pacemaker Cardiac pacemaker in situ Pacemaker Cardiac pacemaker in situ Paroxysmal atrial fibrillation (CMS/HCC) (HCC) Atrial fibrillation documented in this encounter Discontinued Medications Medication Sig Discontinue Reason Start Date End Da te gabapentin (NEURONTIN) 100 mg capsule Take 1 capsule by mouth daily. Therapy completed 08/12/2020 biotin 2,500 mcg capsule take 2 capsules daily Therapy completed 05/09/2014 08/13/19 metoprolol XL (TOPROL-XL) 25 mg 24 hr tablet take 1/2 tablet (25MG) by oral route every day Reorder 12/01/2010 08/12/2020 documented as of this encounter Historical Medications * This list may reflect changes made after this encounter. cholecalciferol (VITAMIN D-3) 5,000 unit tablet daily 024 cyanocobalamin (Vitamin B-12) 1,000 mcg tabletIndications :Prevention of Vitamin B12 Deficiency Take 5 tablets (5,000 mcg total) by mouth daily 11/12/2023 ascorbic acid/collagen hydr (COLLAGEN PLUS VITAMIN C ORAL) Take 6 tablets by mouth daily 11/12/2023 added in this encounter Care Teams Risk Control Specialist Relationship Specialty Start Date End Date Hardy Morgan MD PhD [address] [facility] [address] [facility] [address] [place] [address] PCP - General 12/02/16 08/10/22 Angie Riddle MD [address] [facility] [address] [place] [address] Gynecology 08/19/16 documented as of this encounter
--- OUTSIDE RECORDS SUMMARY | 2024-03-01 05:51 | XMS_ITS | Encounter Summary ---
Author Organization [facility] Medical [facility] Address [address] [place] [address] Care Team Providers Care Surtass Analyst Name Role Phone Angie Riddle MD Unavailable [phone] Hardy Morgan MD PhD Primary Care Provider + Reason for Visit * Reason Comments Follow-up Encounter Details Date Type Department Care Team (Late st Contact Info) Description 03/31/2017 9:45 AM PRINTING MANAGER Office Visit [facility] [address] [facility] [address] [place] [phone] Doug Hood MD [address] [facility] [address] [place] [id number] Breast mass, left (Primary Dx) Social History Tobacco Use Types Packs/Day Years Used Date Smoking Tobacco: Former Cigarettes Q uit: 1985 Smokeless Tobacco: Never Alcohol Use Standard Drinks/Week Comments No 0 (1 standard drink = 0.6 oz pur e alcohol) Comments No Sex and Gender Information Value Date Recorded Sex Assigned at Not on file Legal Sex Female 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 Gender Identity Not on file Sexual Orientation Not on file documented as of this encounter Last Filed Vital Signs Vital Sign Reading Time Taken Comments Blood Pressure 139/88 03/31/2017 9:59 AM PRINTING MANAGER Pulse 60 03/31/2017 9:59 AM PRINTING MANAGER Temperature - - Respiratory Rate - - Oxygen Saturation - - Inhaled Oxygen Concentration - - Weight 52.2 kg (115 lb) 03/31/2017 9:59 AM PRINTING MANAGER Height 163.8 cm (5' 4.5 ) 03/31/2017 9:59 AM PRINTING MANAGER Body Mass Index 19.43 03/31/2017 9:59 AM PRINTING MANAGER documented in this encounter Progress Notes * Doug Hood MD - 03/31/2017 9:45 AM CST [facility] Dr. Herminio Hood ~ Luisa Claudio [address], [facility] [address] [place] [address] ? [email or web address] PATIENT NAME: Francine Erwin : 1940 Patient Care Team: Hardy Morgan MD as PCP - General Angie Riddle MD (Gynecology) REASON FOR VISIT Francine is 77 y.o. female is here for follow-up of left palpable breast mass. She comes in today forclinical breast exam. She was seen in 01/2016 and she had a diagnotic mammograms and ultrasound at that time. Imaging at the visit on 08/20/2015 was unchanged and patient underwent a core biopsy of the left breast, 2:00 position on 07/2016 which revealed dense stromal fibrosis and no atypical hyperplasia or malignancy. Patient had bilateral diagnostic screening mammograms and ultrasound of left breast on 03/05/2017 at [facility]. Findings: bilateral mammograms-breasts are heterogeneously dense,biopsy marker in left outer breast. Oil cysts calcifications in right breat, no new massess, asymmetries, suspicious calcifications or architectural distortions seen. Recommend annual screening. Leftultrasound finding are benign with no changes, masses, or suspicious lesions. Recommend annual screenings. ROS A comprehensive review of systems was negative for breast complaints or concerns. HISTORY She is retired. History Smoking Status ??? Former Smoker ??? Packs/day: 0.50 ??? Quit date: 1984 No LMP recorded. Patient is postmenopausal. Past Medical History: Diagnosis Date ??? Breast mass, left 08/19/2016 ??? Hyperlipidemia Hyperlipidemia; Comments: [facility] 07/20/2013 - ??? Hypertension Hypertension; Comments: [facility] 07/20/2013 - ??? 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 Chronic A lead is from 09-13-03. Lia implant-Marquis Card. ??? Paroxysmal atrial fibrillation (CMS/HCC) PAF - Paroxysmal atrial fibrillation; Comments: [facility] 07/20/2013 - ??? Sick sinus syndrome (CMS/HCC) SSS; Comments: [facility] 07/20/2013 - Past Surgical History: Procedure Laterality Date ??? CARDIAC PACEMAKER PLACEMENT 2010 Cardiac pacemaker ??? CARDIAC PACEMAKER PLACEMENT Cardiac pacemaker ??? INSERT / REPLACE / REMOVE PACEMAKER Family History Problem Relation Age of Onset ??? Coronary artery disease Father Coronary Artery Bypass Graft; ??? Lung cancer Father Cancer, lung; Cause of : Cancer, lung ??? Other Other Family history of [place]; ??? Western/ [place] Mother ??? Skin cancer Mother No known family history of breast cancer. OBJECTIVE No Known Allergies Current Outpatient Prescriptions: ??? biotin 2,500 mcg capsule ??? diltiazem LA (CARDIZEM LA) 180 mg 24 hr tablet ??? meloxicam (MOBIC) 15 mg tablet ??? metoprolol XL (TOPROL-XL) 25 mg 24 hr tablet ??? multivitamin tablet tablet ??? omega-3 fatty acids-vitamin E (FISH OIL) 1,000 mg capsule ??? PRADAXA 150 mg capsule ??? VIT C/E/ZN/COPPR/LUTEIN/ZEAXAN (PRESERVISION AREDS 2 ORAL) BP 139/88 (BP Location: Right arm, Patient Position: Sitting) Pulse 60 Ht 163.8 cm (5' 4.5 ) Wt 52.2 kg (115 lb) Body mass index is 19.43 kg/m??. I have reviewed: allergies, current medications, past family history, past medical history, past social history, past surgical history and problem list. EXAM Breasts: No suspicious masses, lesions, skin changes, dimpling, discharge to either breast. No supraclavicular, infraclavicular or axillary adenopathy bilaterally. Nipples are everted without discharge. ASSESSMENT/PLAN Patient Active Problem List Diagnosis Code ??? Breast mass, left N63.20 ??? Pacemaker Z95.0 ??? Paroxysmal atrial fibrillation (CMS/HCC) I48.0 Francine was seen today for follow-up. Diagnoses and all orders for this visit: Breast mass, left I believe no further work up is needed. She will see us on a prn basis and will return to routine screening mammograms. Breast self awareness encouraged. Call the office with breast changes or concerns. Doug Hood MD TING MANAGER documented in this encounter Plan of Treatment Not on file documented as of this encounter Visit Diagnoses Diagnosis Breast mass, left- Primary Lump or mass in breast documented in this encounter Care Teams Surtass Analyst Relationship Specialty Start Date End Date Hardy Morgan MD PhD [address] [facility] [address] [place] [address] PCP - General 12/02/16 08/10/22 Angie Riddle MD [address] [place] [address] Gynecology 08/19/16 documented as of this encounter
--- OUTSIDE RECORDS SUMMARY | 2024-03-01 05:51 | XMS_ITS | Encounter Summary ---
Author Organization [facility] Medical [facility] Address [address] [place] [address] Care Team Providers Care City Mail Carrier Name Role Phone Angie Riddle MD Unavailable [phone] Hardy Morgan MD PhD Primary Care Provider + Reason for Visit * Reason Onset Date Comments need imaging report 03/30/2017 Encounter Details Date Type Department Care Team (Late st Contact Info) Description 03/30/2017 Telephone [facility] [address] [facility] [address] [place] [phone] Rosangela Galloway MA need imaging report Social History Tobacco Use Types Packs/Day Years Used Date Smoking Tobacco: Former Alcohol Use Standard Drinks/Week Comments No 0 (1 standard drink = 0.6 oz pur e alcohol) Comments No Sex and Gender Information Value Date Recorded Sex Assigned at Not on file Legal Sex Female 9:31 AM TREE CUTTER Gender Identity Not on file Sexual Orientation Not on file documented as of this encounter Miscellaneous Notes * Telephone Encounter - Rosangela Galloway MA - 03/30/2017 9:53 AM TREE CUTTER Called pt's phone sujit on her [employer] form, pt's , Juan, answered phone. I called to verify whether or not pt had had her img @ [facility]. He states pt will be bringing her imaging report from [facility] for her appointment tomorrow, img which she had earlier this month. -GR,RMA CUTTER documented in this encounter Plan of Treatment Not on file documented as of this encounter Visit Diagnoses Not on filedocumented in this encounter Care Teams City Mail Carrier Relationship Specialty Start Date End Date Hardy Morgan MD PhD [address] [place] [address] PCP - General 12/02/16 08/10/22 Angie Riddle MD [address] [place] [address] Gynecology 08/19/16 documented as of this encounter
--- OUTSIDE RECORDS SUMMARY | 2024-03-01 05:51 | XMS_ITS | Encounter Summary ---
Author Organization [facility] Medical [facility] Address [address] [place] [address] Care Team Providers Care Psychology Fellow Name Role Phone Angie Riddle MD Unavailable [phone] Hardy Morgan MD PhD Primary Care Provider + Reason for Visit * Reason Comments Hypertension Hyperlipidemia Atrial Fibrillation Encounter Details Date Type Department Care Team (Late st Contact Info) Description 06/09/2019 9:30 AM CDT Telemedicine [facility] Medical [facility] Cardiology [address] [facility] [address] [facility] [facility] [address] [place] [address] Yoni Matamoros MD [facility] [facility] [address] [place] [address] Paroxysmal atrial fibrillation (CMS/HCC) (Primary Dx); Pacemaker Social History Tobacco Use Types Packs/Day Years Used Date Smoking Tobacco: Former Cigarettes Q uit: 1985 Smokeless Tobacco: Never Alcohol Use Standard Drinks/Week Comments No 0 (1 standard drink = 0.6 oz pur e alcohol) Comments No Sex and Gender Information Value Date Recorded Sex Assigned at Not on file Legal Sex Female 9:31 AM CARDIAC TECHNOLOGIST Gender Identity Not on file Sexual Orientation Not on file documented as of this encounter Last Filed Vital Signs Vital Sign Reading Time Taken Comments Blood Pressure - - Pulse - - Temperature - - Respiratory Rate - - Oxygen Saturation - - Inhaled Oxygen Concentration - - Weight 49.9 kg (110 lb) 06/09/2019 9:21 AM CDT Height 162.6 cm (5' 4 ) 06/09/2019 9:21 AM CDT Body Mass Index 18.88 06/09/2019 9:21 AM CDT documented in this encounter Progress Notes * Yoni Matamoros MD - 06/09/2019 9:30 AM CDT Images from the original note were not included. [facility] [address] [place] [address], [address] [place], [place], [address] Cardiology Electrophysiology Jose Ramon Walker, MD Cesar Tucker,, MD Jonathan Garcia, MD Skinny Fitzgerlad, MD Nilton Mason, MD Nilton Cho, MD Quiana Cifuentes, LEGAL SUPPORT MANAGER Jacob Infante, DO Antonio Canela, MD Rajendra Nunes, MD Linda Carlton, MD Pollo Reynolds, MD Tomer Manajrrez, DO Yoni Matamoros, MD Tati Stacy, LEGAL SUPPORT MANAGER Shakira Maradiaga, LEGAL SUPPORT MANAGER Claudia Diaz, LEGAL SUPPORT MANAGER Patient Name: Francine Erwin Provider: Yoni Matamoros MD : 1940 Date of Service: 06/09/2019 Referring: Cathy CHIEF COMPLAINT: Hypertension; Hyperlipidemia; and Atrial Fibrillation HISTORY OF PRESENT ILLNESS: This visit was conducted using telephone audio This was a telemedicine visit with Francine Erwin which took place via telephone. During the visit I was located my office the patient was located at home. The session started at 0930 and ended at 0945. The patient has been informed that the visit may not be secure and acknowledged the information. 79 y.o. female with paroxysmal atrial fibrillation, permanent pacemaker placement On chronic anticoagulation with Pradaxa Overall doing well Occasionally feels like her heart races Never symptomatic Continuing to work out at home and feels well Tolerating Pradaxa well no bleeding or bruising Has been getting regular yearly checkups blood work with her PCP I reviewed this patient's Allergies and Current Medication List and updated as needed in the medical record. I reviewed this patient's Past Medical History, Social History, and Family History and updated as needed in the medical record. The following pertinent medical data was personally reviewed by myself this visit: Past Medical Mecords: As medical records Imaging and Diagnostic Tests: Pacemaker interrogation report CARDIAC HISTORY: Chronic problems include sick sinus syndrome and permanent pacemaker in 2004. She subsequently had a lead fracture and had a dual-chamber pacemaker revision with Dr. Fitzgerald in 2010. Pacemaker interrogation 06/07/2019 Medtronic dual-chamber pacemaker, Lia 2010 4.5 years to SARMAD 97% RA paced 0.3% RV paced REVIEW OF SYSTEMS Review of Systems Constitution: Negative for decreased appetite, fever, weight gain and weight loss. HENT: Negative. Eyes: Negative for visual disturbance. Cardiovascular: Positive for palpitations. Negative for chest pain, dyspnea on exertion, irregular heartbeat, leg swelling, near-syncope, orthopnea, paroxysmal nocturnal dyspnea and syncope. Respiratory: Negative for cough, shortness of breath and sleep disturbances due to breathing. Endocrine: Negative for cold intolerance and heat intolerance. Hematologic/Lymphatic: Negative for bleeding problem. Does not bruise/bleed easily. Skin: Negative for dry skin, itching, poor wound healing and rash. Musculoskeletal: Negative for back pain, falls, joint pain and myalgias. Gastrointestinal: Negative for bloating, abdominal pain, melena, nausea and vomiting. Genitourinary: Negative. Neurological: Negative for excessive daytime sleepiness, dizziness, headaches, light-headedness, vertigo and weakness. Psychiatric/Behavioral: Negative for altered mental status and substance abuse. The patient does not have insomnia and is not nervous/anxious. Allergic/Immunologic: Negative for environmental allergies. PHYSICAL EXAM: Ht 162.6 cm (5' 4 ) Wt 49.9 kg (110 lb) BMI 18.88 kg/m?? Physical exam not available due to telephone visit ASSESSMENT & PLAN: Diagnoses and all orders for this visit: Paroxysmal atrial fibrillation (CMS/HCC) (Primary) Assessment & Plan: Asymptomatic Still having considerable amount occasional ectopy on interrogation reports Average heart rates overall although adequate and rate controlled She is completely asymptomatic, only noting occasional palpitations do not bother her Tolerating Pradaxa well Will fax routine blood work from PCP, but noting no signs or symptoms of bleeding Pacemaker Assessment & Plan: Regular pacemaker checks Last 1 done 2 days ago Normal functioning dual-chamber pacemaker 4.5 years to SARMAD Continue routine checks This note was dictated with voice-recognition software, and lead fabricator errors may be present. Yoni Matamoros MD [facility] Semi Conductor Assembler documented in this encounter Miscellaneous Notes * Assessment & Plan Note - Yoni Matamoros MD - 06/09/2019 10:06 AM CDT Associated Problem(s): Paroxysmal atrial fibrillation (CMS/HCC) (HCC) Asymptomatic Still having considerable amount occasional ectopy on interrogation reports Average heart rates overall although adequate and rate controlled She is completely asymptomatic, only noting occasional palpitations do not bother her Tolerating Pradaxa well Will fax routine blood work from PCP, but noting no signs or symptoms of bleeding * Assessment & Plan Note - Yoni Matamoros MD - 06/09/2019 10:06 AM CDT Associated Problem(s): Pacemaker Regular pacemaker checks Last 1 done 2 days ago Normal functioning dual-chamber pacemaker 4.5 years to SARMAD Continue routine checks documented in this encounter Plan of Treatment Not on file documented as of this encounter Visit Diagnoses Diagnosis Paroxysmal atrial fibrillation (CMS/HCC) (HCC)- Primary Atrial fibrillation Pacemaker Cardiac pacemaker in situ documented in this encounter Historical Medications * This list may reflect changes made after this encounter. polycarbophil (FIBERCON) 625 mg tablet Take 1 tablet (625 mg total) by mouth daily ONE IN AM AND TWO AT PM 11/12/2023 added in this encounter Care Teams Psychology Fellow Relationship Specialty Start Date End Date Hardy Morgan MD PhD [address] [facility] [address] [place] [address] PCP - General 12/02/16 08/10/22 Angie Riddle MD [address] [address] Gynecology 08/19/16 documented as of this encounter
--- OUTSIDE RECORDS SUMMARY | 2024-03-01 05:51 | XMS_ITS | Encounter Summary ---
Author Organization [facility] Address [address] [facility] [address] [place] [id number] Care Team Providers Care Parts Consultant Name Role Phone Angie Riddle MD Unavailable Hardy Morgan MD PhD Primary Care Provider + Reason for Referral * (Routine) - Closed Specialty Diagnoses / Procedures Referred By Contac t Referred To Contact Diagnoses SSS (sick sinus syndrome) (CMS/HCC) (HCC) Procedures DEVICE CHECK - IN OFFICE Yoni Matamoros MD [address], [place] [address] Phone: tel: fax: [facility] Referral ID Status Reason Start Date Expiration Date Visits Re quested Visits Authorized [id number] Closed 03/08/2019 09/16/2020 1 1 MAKER MACHINE TENDER * (Routine) - Closed Specialty Diagnoses / Procedures Referred By Contac t Referred To Contact Diagnoses SSS (sick sinus syndrome) (CMS/HCC) (HCC) Procedures DEVICE CHECK - REMOTE Yoni Matamoros MD [address], [place] [address] Phone: tel: fax: [facility] Referral ID Status Reason Start Date Expiration Date Visits Re quested Visits Authorized [id number] Closed 03/08/2019 09/16/2020 1 1 MAKER MACHINE TENDER * (Routine) - Closed Specialty Diagnoses / Procedures Referred By Contac t Referred To Contact Diagnoses SSS (sick sinus syndrome) (CMS/HCC) (HCC) Procedures DEVICE CHECK - REMOTE Yoni Matamoros MD [address] [facility] [address], [place] [address] Phone: tel: fax: [facility] Referral ID Status Reason Start Date Expiration Date Visits Re quested Visits Authorized [id number] Closed 03/08/2019 09/16/2020 1 1 MAKER MACHINE TENDER * (Routine) - Closed Specialty Diagnoses / Procedures Referred By Contac t Referred To Contact Diagnoses SSS (sick sinus syndrome) (CMS/HCC) (HCC) Procedures DEVICE CHECK - REMOTE Yoni Matmaoros MD [address] [facility] [address], [place] [address] Phone: tel: fax: [facility] Referral ID Status Reason Start Date Expiration Date Visits Re quested Visits Authorized [id number] Closed 03/08/2019 09/16/2020 1 1 MAKER MACHINE TENDER * (Routine) - Closed Specialty Diagnoses / Procedures Referred By Contac t Referred To Contact Diagnoses SSS (sick sinus syndrome) (CMS/HCC) (HCC) Procedures DEVICE CHECK - REMOTE Yoni Matamoros MD [address] [facility] [address], [place] [address] Phone: tel: fax: [facility] Referral ID Status Reason Start Date Expiration Date Visits Re quested Visits Authorized [id number] Closed 03/08/2019 09/16/2020 1 1 MAKER MACHINE TENDER * (Routine) - Closed Specialty Diagnoses / Procedures Referred By Contac t Referred To Contact Diagnoses SSS (sick sinus syndrome) (CMS/HCC) (HCC) Procedures DEVICE CHECK - REMOTE Yoni Matamoros MD [address] [facility] [address] [place] [address] Phone: tel: fax: [facility] Referral ID Status Reason Start Date Expiration Date Visits Re quested Visits Authorized [id number] Closed 03/08/2019 09/16/2020 1 1 MAKER MACHINE TENDER Encounter Details Date Type Department Care Team (Late st Contact Info) Description 03/08/2019 Orders Only [facility] Cardiology [address] [facility] [address] [place] [address] Yoni Matamoros MD [address] [facility] [address] [place], [place] [id number] SSS (sick sinus syndrome) (CMS/[facility]) (Primary Dx) Social History Tobacco Use Types Packs/Day Years Used Date Smoking Tobacco: Former Cigarettes Q uit: 1985 Smokeless Tobacco: Never Alcohol Use Standard Drinks/Week Comments No 0 (1 standard drink = 0.6 oz pur e alcohol) Comments No Sex and Gender Information Value Date Recorded Sex Assigned at Not on file Legal Sex Female 9:31 AM BOW MAKER MACHINE TENDER Gender Identity Not on file Sexual Orientation Not on file documented as of this encounter Plan of Treatment Not on file documented as of this encounter Results * DEVICE CHECK - IN OFFICE (08/12/2020 10:42 AM CDT) Anatomical Region Laterality Modality Other Narrative 08/12/2020 12:25 PM CDT This patient received a Medtronic Pacemaker. ??They had a routine in office transmission on 08/12/2020. Device implant indications: ??Sick sinus syndrome ?? Interrogation of the patient's device demonstrates the following: Presenting EGM: ??A paced V sensed @ 61 bpm Lead Measurements Right Atrium Right Ventricle Sensitivity (mV) Paced mV 5.6-16.0 mV Impedence (Ohms) 580 ohms 512 ohms Pace Threshold 1.0 V @ 0.4 ms 0.625 V @ 0.4 ms Pacing % 95.7 % 0.4 % Battery Status: ??4.0 years to SARMAD Episodes last 90 days/Comments: AF [place] 6.5 %, there were numerous AT/AF episodes the longest lasting 17 hours. ??The last episode occurred on August 08, 2020 lasting 16 hours. ?? Ventricular rates ranged between the 80s and 160 beats per minute range. NORMAL DEVICE FUNCTION PROGRAMMED Anti-coagulant(s): ??Pradaxa 150 mg twice daily Anti-arrhythmic(s): ??Cardizem LA 180 mg daily, Toprol-XL 12.5 mg daily Plan: 1) normal Medtronic Pacemaker evaluation 2) Medtronic remote transmission scheduled in 3 months. Jaycob Mar R.N. us Yoni Matamoros MD [facility] PRO CEDURES Final Result * DEVICE CHECK - REMOTE (03/11/2020 8:18 AM BOW MAKER MACHINE TENDER) Anatomical Region Laterality Modality Other Narrative 03/12/2020 8:13 PM BOW MAKER MACHINE TENDER This patient received a Medtronic Pacemaker. ??They had a routine ??remote transmission on 03/11/2020. Device implant indications: ??Sick sinus syndrome ?? Interrogation of the patient's device demonstrates the following: Presenting EGM: ??A paced V sensed @ 75 bpm Lead Measurements Right Atrium Right Ventricle Sensitivity (mV) Not done mV 5.6-8.0 mV Impedence (Ohms) 580 ohms 523 ohms Pace Threshold 1.125 V @ 0.4 ms 0.625 V @ 0.4 ms Pacing % 95.6 % 0.4 % Battery Status: ??4.5 years to SARMAD Episodes last 90 days/Comments: AF [place] 6.7 %, there were numerous episodes classified as AT/AF, the longest lasting 20 hours, average ventricular rates ranged from 102 beats per minute to 126 beats per minute. There were no ventricular high rate episodes noted on today's remote interrogation. NORMAL DEVICE FUNCTION PROGRAMMED Anti-coagulant(s): ??Pradaxa 150 mg twice daily Anti-arrhythmic(s): ??Cardizem LA 180 mg daily, Toprol-XL 12.5 mg daily Plan: 1) normal Medtronic Pacemaker evaluation 2) Medtronic remote transmission scheduled in 3 months. Jaycob Mar R.N. Yoni Matamoros MD CV CARDIAC SERVICES PRO CEDURES Final Result * DEVICE CHECK - REMOTE (12/11/2019 8:31 [...] to SARMAD Episodes last 90 days/Comments: AF [place] 6.5 however the counters have not been [...] Final Result * DEVICE CHECK - REMOTE (09/04/2019 3:21 PM CDT) Anatomical Region Laterality Modality Other Narrative 09/05/2019 7:35 AM CDT This patient received a Medtronic Pacemaker. ??They had a routine ??remote transmission on 09/04/2019. Device implant indications: ??Sick sinus syndrome ?? Interrogation of the patient's device demonstrates the following: Presenting EGM: ??Atrial flutter V sensed @ 8 0 bpm Lead Measurements Right Atrium Right Ventricle Sensitivity (mV) Not done mV 5.6-16.0 mV Impedence (Ohms) 600 ohms 529 ohms Pace Threshold Not done V @ ??ms 0.625 V @ 0.4 ms Pacing % 96.3 % ??% Battery Status: ??5.0 years to SARMAD Episodes last 90 days/Comments: AF [place] 5.3 %, there were numerous episodes of mode switch the longest 1 lasting 16-,1/2 hours. ??Average ventricular rates ranged between 97 and 127 beats per minute. NORMAL DEVICE FUNCTION PROGRAMMED Anti-coagulant(s): ??Pradaxa 150 mg twice daily Anti-arrhythmic(s): ??Cardizem LA 180 mg daily, Toprol-XL 12.5 mg daily Plan: 1) normal Medtronic Pacemaker evaluation 2) Medtronic remote transmission scheduled in 3 months. 3) Letter sent with transmission results Jaycob Mar R.N. us Yoni Matamoros MD CV CARDIAC SERVICES PRO CEDURES Final Result * DEVICE CHECK - REMOTE (06/07/2019 8:54 [...] to SARMAD Episodes last 90 days/Comments: AF [place] 4.2 %, longest duration 15 hours and [...] Final Result * DEVICE CHECK - REMOTE (04/06/2019 1:30 PM BOW MAKER MACHINE TENDER) Anatomical Region Laterality Modality Other Narrative 04/06/2019 3:58 PM BOW MAKER MACHINE TENDER This patient received a Medtronic Pacemaker. ??They had a routine Medtronic remote transmission on 04/06/2019. Device implant indications: ??Sick sinus syndrome, atrial fibrillation ?? Interrogation of the patient's device demonstrates the following: Presenting EGM: ??A pace V sense @ 63 bpm Lead Measurements Right Atrium Right Ventricle Sensitivity (mV) Paced mV 5.6-16.0 mV Impedence (Ohms) 580 ohms 549 ohms Pace Threshold 1.375V @ 0.4 ms 0.625 V @ 0.4 ms Pacing % 97.1 % 0.4 % Battery Status: ??4.5 years to SARMAD Episodes last 90 days/Comments: AF [place] 4.2 %, longest duration the 15 minutes and 20 seconds. ??Average ventricular rates while in AFib ranged from 80 to 120 beats per minute. NORMAL DEVICE FUNCTION PROGRAMMED Anti-coagulant(s): ??Pradaxa Anti-arrhythmic(s): ??Cardizem 180 mg, Toprol XL 25 mg once daily. Plan: 1) normal Medtronic Pacemaker evaluation 2) [...] sinus syndrome) (CMS/HCC) (HCC) Sinoatrial node dysfunction SSS (sick sinus syndrome) (CMS/HCC) (HCC) Sinoatrial node dysfunction SSS (sick sinus syndrome) (CMS/HCC) (HCC) Sinoatrial node dysfunction SSS (sick sinus syndrome) (CMS/HCC) (HCC) Sinoatrial node dysfunction Cardiac pacemaker in situ documented in this encounter Care Teams Parts Consultant Relationship Specialty Start Date End Date Hardy Morgan MD PhD [address] [facility] [address] [facility] [address] [place] [address] PCP - General 12/02/16 08/10/22 Angie Riddle MD [address] [place] [address] Gynecology 08/19/16 documented as of this encounter
--- OUTSIDE RECORDS SUMMARY | 2024-03-01 05:51 | XMS_ITS | Encounter Summary ---
Author Organization [facility] Address [address] [facility] [address] [place] [address] Care Team Providers Care Education Paraprofessional Name Role Phone Angie Riddle MD Unavailable [phone] Hardy Morgan MD PhD Primary Care Provider + Encounter Details Date Type Department Care Team (Latest Contact Info) Description 03/14/2018 11:00 AM COPPER ROLLER HANDLER PRINTING Ancillary Procedure [facility] Medical [facility] Cardiology [address] [facility] [address] [place] [address] SSS (sick sinus syndrome) (CMS/HCC); Pacemaker Social History Tobacco Use Types Packs/Day Years Used Date Smoking Tobacco: Former Cigarettes Q uit: 1985 Smokeless Tobacco: Never Alcohol Use Standard Drinks/Week Comments No 0 (1 standard drink = 0.6 oz pur e alcohol) Comments No Sex and Gender Information Value Date Recorded Sex Assigned at Not on file Legal Sex Female 9:31 AM COPPER ROLLER HANDLER PRINTING Gender Identity Not on file Sexual Orientation Not on file documented as of this encounter Progress Notes * Francine Gentile RN - 03/14/2018 11:00 AM CST This patient has a 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 Chronic A lead is from 09-13-03. She had a routine [facility] remote transmission of her pacemaker today. She is on Pradaxa for AC. Interrogation of the patient???s device demonstrates Appropriate DDD pacemaker function Appropriate battery voltage, Stable lead impedances, Stable ventricular sensing TH Stable atrial and ventricular pacing sensing thresholds (2001) MS episodes 3.3 %, the longest episode was 13 hours and 21 minutes in duration (0) ventricular arrhythmias noted. AP-98 %, RVP-0 % Presenting-AP/VS Underlying Rhythm-No atrial escape at VVI 30 BPM Battery V-2.79 V, 4.5 years to SARMAD Atrial- Paced mv, 589 ohms, 1.875 V @ .40 ms RV- 5.6-16.0 Mv, 566 ohms, 0.625 V @ .40 Ms [facility]: [facility] as noted above. 2) [facility] 3 months. 3) In office pacer check and OV with Dr. Cho is scheduled Francine Gentile RN, RS, Arrhythmia Device Specialist ER ROLLER HANDLER PRINTING documented in this encounter Plan of Treatment Not on file documented as of this encounter Procedures Procedure Name Priority Date/Time Associated Diagnosis Comments DEVICE CHECK - REMOTE Routine 03/22/2018 9:53 AM COPPER ROLLER HANDLER PRINTING SSS (sick sinus syndrome) ([facility]) documented in this encounter Results * DEVICE CHECK - REMOTE (03/22/2018 9:53 AM COPPER ROLLER HANDLER PRINTING) Anatomical Region Laterality Modality Other Narrative 04/19/2018 10:30 AM COPPER ROLLER HANDLER PRINTING This patient has a 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 Chronic A lead is from 09-13-03. ??She had a routine [facility] remote transmission of her pacemaker today. She is on Pradaxa for AC. Interrogation of the patient? s device demonstrates Appropriate DDD pacemaker function Appropriate battery voltage, Stable lead impedances, Stable ventricular sensing TH Stable atrial and ventricular pacing sensing thresholds (2001) MS episodes 3.3 %, the longest episode was 13 hours and 21 minutes in duration (0) ventricular arrhythmias noted. AP-98 %, RVP-0 % Presenting-AP/VS Underlying Rhythm-No atrial escape at VVI 30 BPM Battery V-2.79 V, 4.5 ??years to SARMAD Atrial- ??Paced ??mv, 589 ??ohms, 1.875 V @ ??.40 ms RV- 5.6-16.0 Mv, 566 ohms, 0.625 ??V @ .40 Ms Plan: 1) [facility] remote Pacemaker evaluation as noted above. 2) [facility] 3 months. 3) In office pacer check and OV with Dr. Cho is scheduled Francine Gentile RN, [facility] [email or web address]], Arrhythmia Device Specialist Nilton Cho MD CV CARDIAC SERVICES PROCEDUR ES Final Result documented in this encounter Visit Diagnoses Diagnosis SSS (sick sinus syndrome) (CMS/HCC) (HCC) Sinoatrial node dysfunction Pacemaker Cardiac pacemaker in situ documented in this encounter Care Teams Education Paraprofessional Relationship Specialty Start Date End Date Hardy Morgan MD PhD [address] [facility] [address] [place] [address] PCP - General 12/02/16 08/10/22 Angie Riddle MD [address] [place] [address] Gynecology 08/19/16 documented as of this encounter
--- OUTSIDE RECORDS SUMMARY | 2024-03-01 05:51 | XMS_ITS | Encounter Summary ---
Author Organization [facility] Address [address] [facility] [address] [place] [address] Care Team Providers Care Dealer Card Room Name Role Phone Lida Land MD Primary Care Provider [phone] Angie Riddle MD Unavailable [phone] Reason for Visit * Reason Comments Atrial Fibrillation Hyperlipidemia Hypertension Encounter Details Date Type Department Care Team (Latest Contact Info) Description 09/07/2016 10:15 AM CDT [facility] [address] [facility] [address] [place] [address] Nilton Cho MD [facility]3 COUNT INCLUDES [address] [facility] [address] [place] [address] Essential hypertension (Primary Dx); Paroxysmal atrial fibrillation (CMS/HCC); Pacemaker; Pure hypercholesterolemia Social History Tobacco Use Types Packs/Day Years Used Date Smoking Tobacco: Former Alcohol Use Standard Drinks/Week Comments No 0 (1 standard drink = 0.6 oz pur e alcohol) Comments No Sex and Gender Information Value Date Recorded Sex Assigned at Not on file Legal Sex Female 9:31 AM WASTE SALVAGER Gender Identity Not on file Sexual Orientation Not on file documented as of this encounter Last Filed Vital Signs Vital Sign Reading Time Taken Comments Blood Pressure 128/78 09/07/2016 10:31 AM CDT Pulse 70 09/07/2016 10:31 AM CDT Temperature - - Respiratory Rate - - Oxygen Saturation - - Inhaled Oxygen Concentration - - Weight 51.7 kg (114 lb) 09/07/2016 10:31 AM CDT Height 162.6 cm (5' 4 ) 09/07/2016 10:31 AM CDT Body Mass Index 19.57 09/07/2016 10:31 AM CDT documented in this encounter Progress Notes * Nilton Cho MD - 09/07/2016 10:15 AM CDT Images from the original note were not included. [facility] [place] [facility] [address] Cardiology Jose Ramon Walker, MD Jonathan Garcia, MD Nilton Mason, MD Nilton Cho, MD Jacob Infante, DO Antonio Canela, MD Rajendra Nunes, MD Linda Carlton, MD Tomer Manjarrez, DO Vicki Mc, MANAGER ENERGY Claudia Diaz, MANAGER ENERGY Patient Name: Francine Erwin Provider: Nilton Cho MD : 1940 Date of Service: 09/07/2016 Referring: Emery CHIEF COMPLAINT: Atrial Fibrillation; Hyperlipidemia; and Hypertension HISTORY OF PRESENT ILLNESS: 76 y.o. female with a history of a PPM. Francine Erwin is a 76 year old patient with a PMH of SSS, s/p PPM 2004. In 2010 she had evidence of lead failure and underwent dual chamber pacemaker revision by Dr. Fitzgerald in 2010. She has PAF anticoagulated with pradaxa. Her other PMH is significant for htn and hypercholesterolemia. She remains active and has no issues. MEDICATIONS: Outpatient Encounter Prescriptions as of 09/07/2016 Medication Sig Dispense Refill ??? biotin 2,500 mcg capsule take 2 capsules daily 0 0 ??? dabigatran (PRADAXA) 150 mg capsule take 1 capsule (150MG) by oral route 2 times every day 180 3 ??? diltiazem LA (CARDIZEM LA) 180 mg 24 hr tablet take 1 tablet by oral route every day 0 0 ??? meloxicam (MOBIC) 15 mg tablet take [...] mouth. Take 2 capsules daily ??? [DISCONTINUED] atorvastatin (LIPITOR) 10 mg tablet take 1 tablet by oral route every day (Patient not taking: Reported on 08/19/2016 ) 0 0 ??? [DISCONTINUED] dabigatran (PRADAXA) 150 mg capsule take 1 capsule (150MG) by oral route 2 timesevery day 180 3 ??? [DISCONTINUED] polycarbophil (FIBER-TABS) 625 mg tablet 625 mg. (Patient not taking: Reported on 08/19/2016 ) 0 0 No facility-administered encounter medications on file as of 09/07/2016. REVIEW OF SYSTEMS: General: No fever, chills, [...] excessive bleeding or bruising PHYSICAL EXAM: BP 128/78 (BP Location: Right arm, Patient Position: Sitting) Pulse 70 Ht 162.6 cm (5' 4 ) Wt51.7 kg (114 lb) BMI 19.57 kg/m?? General: Well appearing, No pain or distress, well nourished Eyes: ALEJANDRA/EOMI, Conjuctiva Clear ENT: External ears/nose normal Neck: Supple Respiratory: Clear to ausculation bilaterally; no wheezing/rales/rhonchi; respirations nonlabored Cardiovascular: RRR, normal S1 and S2. No S3 or S4. No murmers or rubs. Carotid upstrokes brisk bilaterally and without bruits. Gastrointestinal: soft, non-tender abdomen Extremities: no cyanosis or clubbing or edema Musculoskeletal: no obvious joint deformities Skin: no obvious rash or bruising Psychiatric: normal affect Neurologic: awake/alert, no focal deficits ASSESSMENT & PLAN: Diagnoses and all orders for this visit: 1. Essential hypertension (Primary) Comments: Low salt diet. Monitor. Excellent exercises habits. 2. Paroxysmal atrial fibrillation (CMS/HCC) Comments: On chronic AC. 3. Pacemaker Assessment & Plan: Pacer check today is stable. Home monitor. 4. Pure hypercholesterolemia - Lipid panel POC (performed in office) Nilton Cho MD documented in this encounter Miscellaneous Notes * Assessment & Plan Note - Nilton Cho MD - 09/07/2016 11:15 AM CDT Associated Problem(s): Pacemaker (Deleted) Pacer check today is stable. Home monitor. documented in this encounter Plan of Treatment Not on file documented as of this encounter Procedures Procedure Name Priority Date/Time Associated Diagnosis Comments POCT LIPID PANEL Routine 09/07/2016 10:3 5 AM CDT Pure hypercholesterolemia documented in this encounter Results * Lipid panel POC (performed in office) (09/07/2016 10:35 AM CDT) Cholesterol, POC 131 mg/dL HDL, POC 62 mg/dL Triglycerides, POC 45 mg/dL LDL Cholesterol POC 0.1 mg/dL Capillary blood 09/07/2016 1 0:35 AM CDT Nilton Cho MD POINT OF CARE TEST ORDERABLE S Final Result documented in this encounter Visit Diagnoses Diagnosis Essential hypertension- Primary Unspecified essential hypertension Paroxysmal atrial fibrillation (CMS/HCC) (HCC) Atrial fibrillation Pacemaker Cardiac pacemaker in situ Pure hypercholesterolemia documented in this encounter Discontinued Medications Medication Sig Discontinue Reason Start Date End Da te dabigatran (PRADAXA) 150 mg capsule take 1 capsule (150MG) by oral route 2 times every day Duplicate order 05/12/2012 09/07/2016 atorvastatin (LIPITOR) 10 mg tablet take 1 tablet by oral route every day Patient Discharge 05/27/2016 09/07/2016 polycarbophil (FIBER-TABS) 625 mg tablet 625 mg. Patient Discharge 05/27/2016 09/07/2016 documented as of this encounter Historical Medications * This list may reflect changes made after this encounter. VIT C/E/ZN/COPPR/LUTE IN/ZEAXAN (PRESERVISION AREDS 2 ORAL) Take by mouth Take 2 capsules daily added in this encounter Care Teams Dealer Card Room Relationship Specialty Start Date End Date Lida Land MD [address] [facility] [address] [place] [address] PCP - General 05/29/16 12/01/16 Angie Riddle MD [address] [place] [address] Gynecology 08/19/16 documented as of this encounter
--- OUTSIDE RECORDS SUMMARY | 2024-03-01 05:51 | XMS_ITS | Encounter Summary ---
Author Organization [facility] Healthcare Address [address] [place] [address] Care Team Providers [employer] Name Role Phone Lida Kapoor MD Primary Care Provider [phone] Angie Riddle MD Unavailable [phone] Encounter Details Date Type Department Care Team (Latest Contact Info) Description 08/26/2016 9:54 AM CDT - 08/26/2016 11:59 PM CDT Hospital Encounter [facility] OP INTERIM [phone] Doug Weber MD [address] [facility] [address] [place] [address] Discharge Disposition: Discharge to home or self care Social History Tobacco Use Types Packs/Day Years Used Date Smoking Tobacco: Former Alcohol Use Standard Drinks/Week Comments No 0 (1 standard drink = 0.6 oz pur e alcohol) Comments No Sex and Gender Information Value Date Recorded Sex Assigned at Not on file 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 Gender Identity Not on file Sexual Orientation Not on file documented as of this encounter Medications at Time of Discharge omega-3 fatty acids-vitamin E (FISH OIL) 1,000 mg capsule take 1 by Oral route 3 times every day 0 0 07/21/2013 atorvastatin (LIPITOR) 10 mg tablet take 1 tablet by oral route every day 0 0 05/27/2016 09/07/2016 biotin 2,500 mcg capsule take 2 capsules daily 0 0 05/09/2014 08/12/2020 dabigatran (PRADAXA) 150 mg capsule take 1 capsule (150MG) by oral route 2 times every day 180 3 05/12/2012 01/18/2017 dabigatran (PRADAXA) 150 mg capsule take 1 capsule (150MG) by oral route 2 times every day 180 3 05/12/2012 09/07/2016 diltiazem LA (CARDIZEM LA) 180 mg 24 [...] route once 0 0 07/21/2013 11/12/2023 polycarbophil (FIBER-TABS) 625 mg tablet 625 mg. 0 0 05/27/2016 09/07/2016 documented as of this encounter Discharge Disposition Disposition Code Departure Means Destination Discharge to home or self care documented in this encounter Plan of Treatment Not on file documented as of this encounter Procedures Procedure Name Priority Date/Time Associated Diagnosis Comments US GUIDED LOCALIZATION BREAST Routine 08/26/2016 4:05 PM CDT SURGICAL PATHOLOGY 08/26/2016 10 :50 AM CDT DIAGNOSTIC MAMMOGRAM LEFT ADDITIONAL VIEW Routine 08/26/2016 12:00 AM CDT SURGICAL PATHOLOGY 08/26/2016 12 :00 AM CDT documented in this encounter Results * US Guided Localization Breast (08/26/2016 4:05 PM CDT) Anatomical Region Laterality Modality Breast N/A Ultrasound 08/26/2016 4:05 PM CDT Narrative 08/26/2016 4:05 PM CDT Ultrasound core biopsy left breast, diagnostic mammogram additional views left breast. HISTORY: Patient is a 76-year-old woman presenting for needle core biopsy of a persistent palpable lump noted in the left breast upper outer quadrant for at least 1 year. ??Patient reports some left breast tenderness in this location. ??Most recent mammogram and ultrasound demonstrating echodense fibroglandular tissue without a discrete mass. ??Ultrasound needle core biopsy recommended for clarification. The procedure of left breast ultrasound-guided needle core biopsy and its associated risks were discussed with the patient and written informed consent obtained. ??Risks include but are not limited to bleeding, infection and increased pain. Comparison was made to prior studies 08/19/2016 as far back as 10/27/2012. FINDINGS: Left breast: Left breast was prepped with ChloraPrep and superficial and deep anesthesia obtained with 1% lidocaine. ??As noted previously heterogeneously dense glandular tissue was noted in the upper outer quadrant at 2 o'clock. ??A discrete mass was not clearly identified. After discussion with the patient, we ??proceeded with needle core biopsy through the dense glandular tissue for further clarification. A 12-gauge Bard needle was advanced to the region of dense tissue and 4 core samples obtained without complication. ??A coil clip was placed at the biopsy site. ??Hemostasis was obtained and skin incision closed with glue. Postprocedure mammogram in CC and ML projection demonstrated coil marker in the upper outer quadrant at site of recent biopsy. ??A left chest wall pacemaker was also present. There were no immediate complications. ??Findings were reviewed with the patient prior to discharge from the [facility] in satisfactory condition. IMPRESSION: 1. ??Satisfactory ultrasound-guided needle core biopsy of prominent glandular tissue palpable in the left breast upper outer quadrant at 2 o'clock. ??Pathological evaluation of specimen cores currently pending. 2. ??Metallic coil marker is identified at site of recent biopsy in the upper outer quadrant. Electronically signed by: Osito Alegre M.D. Addendum Begins 76-year-old patient to was evaluated for an area of palpable concern in the 16 and then again on 08/19/2016. ??Both times there was no discrete mass identified but there was heterogeneously dense fibroglandular tissue with a more palpable area in the 2:00 left breast. ??In light of persistent palpable concern ultrasound core biopsy through the dense tissue in the 2:00 left breast was recommended. ??Adequate sampling was obtained with ultrasound core biopsy. ??The pathology shows dense stromal fibrosis with no atypical hyperplasia or malignancy identified. ??This is felt to be benign and concordant with the imaging findings however a short-term follow-up diagnostic mammogram of the left breast with tomosynthesis and a repeat left ultrasound is recommended in 6 months to reassess this area for continued stability. Electronically signed by: STEPH DON MD Addendum Ends Radiologist: STEPH DON ? Attending: ??DOUG WEBER Requesting: DOUG WEBER Requesting Fax: ?? Requesting ID: [id number] Attending Fax: ?? Attending ID: ?? [id number] Completed Time: ?? 08/26/2016 11:05 AM Dictated Time: ?N/A Transcribed Time: 08/26/2016 12:40 AM Signed by: ?STEPH DON ?on 08/28/2016 08:31 AM Report To 1 ID: [id number] Report To 1 Name: Nathan KAPOOR Report To 1 FAX: Report To 2 ID: [id number] Report To 2 Name: ANGIE RIDDLE Report To 2 FAX: Report To 3 ID: Report To 3 Name: , Report To 3 FAX: NextGen Order #: Procedure Note Miscellaneous, Not In File / Provider, MD Mikhail - 08/28/2016 Ultrasound core biopsy left breast, diagnostic mammogram additional views left breast. HISTORY: Patient is a 76-year-old woman presenting for needle core biopsy of a persistent palpable lump noted in the left breast upper outer quadrant for at least 1 year. Patient reports some left breast tenderness in this location. Most recent mammogram and ultrasound demonstrating echodense fibroglandular tissue without a discrete mass. Ultrasound needle core biopsy recommended for clarification. The procedure of left breast ultrasound-guided needle core biopsy and its associated risks were discussed with the patient and written informed consent obtained. Risks include but are not limited to bleeding, infection and increased pain. Comparison was made to prior studies 08/19/2016 as far back as 10/27/2012. FINDINGS: Left breast: Left breast was prepped with ChloraPrep and superficial and deep anesthesia obtained with 1% lidocaine. As noted previously heterogeneously dense glandular tissue was noted in the upper outer quadrant at 2 o'clock. A discrete mass was not clearly identified. After discussion with the patient, we proceeded with needle core biopsy through the dense glandular tissue for further clarification. A 12-gauge Bard needle was advanced to the region of dense tissue and 4 core samples obtained without complication. A coil clip was placed at the biopsy site. Hemostasis was obtained and skin incision closed with glue. Postprocedure mammogram in CC and ML projection demonstrated coil marker in the upper outer quadrant at site of recent biopsy. A left chest wall pacemaker was also present. There were no immediate complications. Findings were reviewed with the patient prior to discharge from the [facility] in satisfactory condition. IMPRESSION: 1. Satisfactory ultrasound-guided needle core biopsy of prominent glandular tissue palpable in the left breast upper outer quadrant at 2 o'clock. Pathological evaluation of specimen cores currently pending. 2. Metallic coil marker is identified at site of recent biopsy in the upper outer quadrant. Electronically signed by: Osito Alegre M.D. Addendum Begins 76-year-old patient to was evaluated for an area of palpable concern in the 16 and then again on 08/19/2016. Both times there was no discrete mass identified but there was heterogeneously dense fibroglandular tissue with a more palpable area in the 2:00 left breast. In light of persistent palpable concern ultrasound core biopsy through the dense tissue in the 2:00 left breast was recommended. Adequate sampling was obtained with ultrasound core biopsy. The pathology shows dense stromal fibrosis with no atypical hyperplasia or malignancy identified. This is felt to be benign and concordant with the imaging findings however a short-term follow-up diagnostic mammogram of the left breast with tomosynthesis and a repeat left ultrasound is recommended in 6 months to reassess this area for continued stability. Electronically signed by: STEPH DON MD Addendum Ends Radiologist: STEPH DON Attending: DOUG WEBER Requesting: DOUG WEBER Requesting Requesting ID: [id number] Attending Attending ID: [id number] Completed Time: 08/26/2016 11:05 AM Dictated Time: N/A Transcribed Time: 08/26/2016 12:40 AM Signed by: ARIAN STEPH on 08/28/2016 08:31 AM Report To 1 ID: [id number] Report To 1 Name: Nathan KAPOOR Report To 1 FAX: Report To 2 ID: [id number] Report To 2 Name: ANGIE RIDDLE Report To 2 FAX: Report To 3 ID: Report To 3 Name: , Report To 3 FAX: NextGen Order #: us Doug Weber MD IMG US PROCEDURES Final Re sult * SURGICAL PATHOLOGY (08/26/2016 10:50 AM CDT) 08/26/2016 10:5 0 AM CDT 08/26/2016 12:16 PM CDT Narrative 08/27/2016 10:09 AM CDT [address] ??[address] Tele: ?? Moises Cao MD - Committee Member ?? Jitendra Contreras - Drum Sander Setter SURGICAL PATHOLOGY REPORT ?Patient Name: FRANCINE ERWIN Address: [address] [place] [address] Service: Radiology ??[place], [place] ?? Location: ? RAD ? Taken: 08/26/2016 Gender: F Received 08/26/2016 : 1940 (Age: 76) Hospital #: [id number] Reported: 08/27/2016 ?? Patient Type: MB Ancillary Physician(s): [facility] - Dr. Sis Weber M.D. ?? DIAGNOSIS: Breast, left, 2 o'clock, core biopsy: ? - Dense stromal fibrosis - No atypical hyperplasia or malignancy rmd/08/27/2016 10:09 Examining Pathologist: Hilda Leger, M.D. ??Report Reviewed and Electronically Signed By ??Hilda Leger M.D. ?? SPECIMEN TYPE: A: LEFT BREAST 2:00 2B CLINICAL IMPRESSION AND HISTORY: Left breast mass. ??No history except possible maternal first cousin-breast. GROSS DESCRIPTION: <<<<<Received in formalin and labeled Francine Erwin and left breast 2 o'clock 2B are many fragmented pieces of yellow fatty tissue ranging from 0.4 up to 1.7 cm. ??The tissue is inked and submitted entirely in cassette A1. ??The tissue was collected and placed in formalin at 10:50 on 08/26/16. ?js/08/26/2016 12:45 ? STELLA PRESTON MICROSCOPIC DESCRIPTION: Sections show cores of breast parenchyma with areas of dense stromal fibrosis. ??There is no atypical hyperplasia or malignancy. Clerical Data Follows A; 72971 The immunohistochemical test(s) cited in this report, if any, was developed and its performance characteristics determined by [facility] Pathology Department. ??It has not been cleared or approved by the U.S. Food and Drug Administration. ??The FDA has determined that such clearance or approval is not necessary. ??This test is used for clinical purposes. ??It should not be regarded as investigational or for research. ??[facility] is certified under the Clinical Laboratory Improvement Amendments of 1988 (CLIA) as qualified to perform high complexity testing. ??Immunostains were performed on formalin-fixed paraffin embedded tissue using a polymer diaminobenzidine chromogen detection system. Antibodies used may include clone SP1 (rabbit monoclonal, estrogen receptor), clone 1E2 (rabbit monoclonal progesterone receptor), Ki-67 (rabbit monoclonal, 30-9), and CD117 (rabbit polyclonal, c-kit). us Notinfile Unknown LAB PATHOLOGY ORDERABLES Edite d Result - Final * SURGICAL PATHOLOGY (08/26/2016 12:00 AM CDT) Narrative 08/26/2016 12:00 AM CDT Ordered by an unspecified provider. us Historical Provider LAB PATHOLOGY ORDERABLES Final Result * Diagnostic Mammogram left additional view (08/26/2016 12:00 AM CDT) Anatomical Region Laterality Modality Breast Mammography 08/26/2016 5:29 PM CDT Narrative 08/26/2016 5:29 PM CDT Ultrasound core biopsy left breast, diagnostic mammogram additional views left breast. HISTORY: Patient is a 76-year-old woman presenting for needle core biopsy of a persistent palpable lump noted in the left breast upper outer quadrant for at least 1 year. ??Patient reports some left breast tenderness in this location. ??Most recent mammogram and ultrasound demonstrating echodense fibroglandular tissue without a discrete mass. ??Ultrasound needle core biopsy recommended for clarification. The procedure of left breast ultrasound-guided needle core biopsy and its associated risks were discussed with the patient and written informed consent obtained. ??Risks include but are not limited to bleeding, infection and increased pain. Comparison was made to prior studies 08/19/2016 as far back as 10/27/2012. FINDINGS: Left breast: Left breast was prepped with ChloraPrep and superficial and deep anesthesia obtained with 1% lidocaine. ??As noted previously heterogeneously dense glandular tissue was noted in the upper outer quadrant at 2 o'clock. ??A discrete mass was not clearly identified. After discussion with the patient, we ??proceeded with needle core biopsy through the dense glandular tissue for further clarification. A 12-gauge Bard needle was advanced to the region of dense tissue and 4 core samples obtained without complication. ??A coil clip was placed at the biopsy site. ??Hemostasis was obtained and skin incision closed with glue. Postprocedure mammogram in CC and ML projection demonstrated coil marker in the upper outer quadrant at site of recent biopsy. ??A left chest wall pacemaker was also present. There were no immediate complications. ??Findings were reviewed with the patient prior to discharge from the [facility] in satisfactory condition. IMPRESSION: 1. ??Satisfactory ultrasound-guided needle core biopsy of prominent glandular tissue palpable in the left breast upper outer quadrant at 2 o'clock. ??Pathological evaluation of specimen cores currently pending. 2. ??Metallic coil marker is identified at site of recent biopsy in the upper outer quadrant. Electronically signed by: Osito Alegre M.D. Addendum Begins 76-year-old patient to was evaluated for an area of palpable concern in the 16 and then again on 08/19/2016. ??Both times there was no discrete mass identified but there was heterogeneously dense fibroglandular tissue with a more palpable area in the 2:00 left breast. ??In light of persistent palpable concern ultrasound core biopsy through the dense tissue in the 2:00 left breast was recommended. ??Adequate sampling was obtained with ultrasound core biopsy. ??The pathology shows dense stromal fibrosis with no atypical hyperplasia or malignancy identified. ??This is felt to be benign and concordant with the imaging findings however a short-term follow-up diagnostic mammogram of the left breast with tomosynthesis and a repeat left ultrasound is recommended in 6 months to reassess this area for continued stability. Electronically signed by: STEPH DON MD Addendum Ends Radiologist: STEPH DON ? Attending: ??DOUG WEBER Requesting: DOUG WEBER Requesting Fax: ?? Requesting ID: [id number] Attending Fax: ?? Attending ID: ?? [id number] Completed Time: ?? 08/26/2016 12:29 AM Dictated Time: ?N/A Transcribed Time: 08/26/2016 12:40 AM Signed by: ?STEPH DON ?on 08/28/2016 08:31 AM Report To 1 ID: [id number] Report To 1 Name: Nathan KAPOOR Report To 1 FAX: Report To 2 ID: [id number] Report To 2 Name: ANGIE RIDDLE Report To 2 FAX: Report To 3 ID: Report To 3 Name: , Report To 3 FAX: NextGen Order #: Procedure Note Miscellaneous, Not In File / Provider, MD Mikhail - 08/31/2016 Ultrasound core biopsy left breast, diagnostic mammogram additional views left breast. HISTORY: Patient is a 76-year-old woman presenting for needle core biopsy of a persistent palpable lump noted in the left breast upper outer quadrant for at least 1 year. Patient reports some left breast tenderness in this location. Most recent mammogram and ultrasound demonstrating echodense fibroglandular tissue without a discrete mass. Ultrasound needle core biopsy recommended for clarification. The procedure of left breast ultrasound-guided needle core biopsy and its associated risks were discussed with the patient and written informed consent obtained. Risks include but are not limited to bleeding, infection and increased pain. Comparison was made to prior studies 08/19/2016 as far back as 10/27/2012. FINDINGS: Left breast: Left breast was prepped with ChloraPrep and superficial and deep anesthesia obtained with 1% lidocaine. As noted previously heterogeneously dense glandular tissue was noted in the upper outer quadrant at 2 o'clock. A discrete mass was not clearly identified. After discussion with the patient, we proceeded with needle core biopsy through the dense glandular tissue for further clarification. A 12-gauge Bard needle was advanced to the region of dense tissue and 4 core samples obtained without complication. A coil clip was placed at the biopsy site. Hemostasis was obtained and skin incision closed with glue. Postprocedure mammogram in CC and ML projection demonstrated coil marker in the upper outer quadrant at site of recent biopsy. A left chest wall pacemaker was also present. There were no immediate complications. Findings were reviewed with the patient prior to discharge from the [facility] in satisfactory condition. IMPRESSION: 1. Satisfactory ultrasound-guided needle core biopsy of prominent glandular tissue palpable in the left breast upper outer quadrant at 2 o'clock. Pathological evaluation of specimen cores currently pending. 2. Metallic coil marker is identified at site of recent biopsy in the upper outer quadrant. Electronically signed by: Osito Alegre M.D. Addendum Begins 76-year-old patient to was evaluated for an area of palpable concern in the 16 and then again on 08/19/2016. Both times there was no discrete mass identified but there was heterogeneously dense fibroglandular tissue with a more palpable area in the 2:00 left breast. In light of persistent palpable concern ultrasound core biopsy through the dense tissue in the 2:00 left breast was recommended. Adequate sampling was obtained with ultrasound core biopsy. The pathology shows dense stromal fibrosis with no atypical hyperplasia or malignancy identified. This is felt to be benign and concordant with the imaging findings however a short-term follow-up diagnostic mammogram of the left breast with tomosynthesis and a repeat left ultrasound is recommended in 6 months to reassess this area for continued stability. Electronically signed by: STEPH DON MD Addendum Ends Radiologist: STEPH DON Attending: DOUG WEBER Requesting: DOUG WEBER Requesting Requesting ID: [id number] Attending Attending ID: [id number] Completed Time: 08/26/2016 12:29 AM Dictated Time: N/A Transcribed Time: 08/26/2016 12:40 AM Signed by: STEPH DON on 08/28/2016 08:31 AM Report To 1 ID: [id number] Report To 1 Name: Nathan KAPOOR Report To 1 FAX: Report To 2 ID: [id number] Report To 2 Name: ANGIE RIDDLE Report To 2 FAX: Report To 3 ID: Report To 3 Name: , Report To 3 FAX: NextGen Order #: us Doug Weber MD IMG MAMMO PROCEDURES Final Result documented in this encounter Visit Diagnoses Not on filedocumented in this encounter Care Teams [employer] Relationship Specialty Start Date End Date Lida Kapoor MD [address] [facility] [address] [place] [address] PCP - General 05/29/16 12/01/16 Angie Riddle MD [address] [place] [address] Gynecology 08/19/16 documented as of this encounter
--- OUTSIDE RECORDS SUMMARY | 2024-03-01 05:51 | XMS_ITS | Encounter Summary ---
Author Organization [facility] Medical Group Address [address] [facility] [address] [place] [address] Care Team Providers Care Density Control Puncher Name Role Phone Angie Riddle MD Unavailable [phone] Hardy Morgan MD PhD Primary Care Provider + Encounter Details Date Type Department Care Team (Late st Contact Info) Description 02/11/2017 Telephone [facility] [address] [facility] [address] [address] Angie Rogers Social History Tobacco Use Types Packs/Day Years Used Date Smoking Tobacco: Former Alcohol Use Standard Drinks/Week Comments No 0 (1 standard drink = 0.6 oz pur e alcohol) Comments No Sex and Gender Information Value Date Recorded Sex Assigned at Not on file 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 I had to leave a vm for pt. TOR documented in this encounter Plan of Treatment Not on file documented as of this encounter Visit Diagnoses Not on filedocumented in this encounter Care Teams Density Control Puncher Relationship Specialty Start Date End Date Hardy Morgan MD PhD [address] [place] [address] PCP - General 12/02/16 08/10/22 Angie Riddle MD [address] [place] [address] Gynecology 08/19/16 documented as of this encounter
--- OUTSIDE RECORDS SUMMARY | 2024-03-01 05:51 | XMS_ITS | Encounter Summary ---
Author Organization [facility] Medical Group Address [address] [facility] [address] [place] [address] Care Team Providers Care On Site Construction Superintendent Name Role Phone Angie Riddle MD Unavailable Hardy Morgan MD PhD Primary Care Provider + Reason for Referral * Cardiology (Routine) - Closed Specialty Diagnoses / Procedures Referred By Contac t Referred To Contact Diagnoses SSS (sick sinus syndrome) (CMS/HCC) (HCC) Procedures DEVICE CHECK - REMOTE Yoni Matamoros MD [address], [place] [address] Phone: tel: fax: [facility] Medical [facility] Referral ID Status Reason Start Date Expiration Date Visits Re quested Visits Authorized [id number] Closed 02/28/2020 03/29/2021 1 1 FABRIC INSPECTOR * Cardiology (Routine) - Closed Specialty Diagnoses / Procedures Referred By Contac t Referred To Contact Diagnoses SSS (sick sinus syndrome) ([facility]/HCC) (HCC) Procedures DEVICE CHECK - REMOTE Yoni Matamoros MD [address], [place] [address] Phone: tel: fax: [facility] Referral ID Status Reason Start Date Expiration Date Visits Re quested Visits Authorized [id number] Closed 02/28/2020 03/29/2021 1 1 FABRIC INSPECTOR * Cardiology (Routine) - Closed Specialty Diagnoses / Procedures Referred By Contac t Referred To Contact Diagnoses SSS (sick sinus syndrome) (CMS/HCC) (HCC) Procedures DEVICE CHECK - REMOTE Yoni Matamoros MD [address] [facility] [address] [place] [address] Phone: tel: fax: [facility] Referral ID Status Reason Start Date Expiration Date Visits Re quested Visits Authorized [id number] Closed 02/28/2020 03/29/2021 1 1 FABRIC INSPECTOR * Cardiology (Routine) - Closed Specialty Diagnoses / Procedures Referred By Contac t Referred To Contact Diagnoses SSS (sick sinus syndrome) (CMS/HCC) (HCC) Procedures DEVICE CHECK - REMOTE Yoni Matamoros MD [address] [facility] [address] [place] [address] Phone: tel: fax: [facility] Referral ID Status Reason Start Date Expiration Date Visits Re quested Visits Authorized [id number] Closed 02/28/2020 03/29/2021 1 1 FABRIC INSPECTOR * Cardiology (Routine) - Closed Specialty Diagnoses / Procedures Referred By Contac t Referred To Contact Diagnoses SSS (sick sinus syndrome) (CMS/HCC) (HCC) Procedures DEVICE CHECK - REMOTE Yoni Matamoros MD [address] [facility] [address] [place] [address] Phone: tel: fax: [facility] Referral ID Status Reason Start Date Expiration Date Visits Re quested Visits Authorized [id number] Closed 02/28/2020 03/29/2021 1 1 FABRIC INSPECTOR Encounter Details Date Type Department Care Team (Late st Contact Info) Description 02/28/2020 Orders Only [facility] Cardiology [address] [facility] [address] [place] [address] Yoni Matamoros MD [address] [facility] [address] [place] [address] SSS (sick sinus syndrome) (CMS/HCC) (Primary Dx) Social History Tobacco Use Types Packs/Day Years Used Date Smoking Tobacco: Former Cigarettes Q uit: 1985 Smokeless Tobacco: Never Alcohol Use Standard Drinks/Week Comments No 0 (1 standard drink = 0.6 oz pur e alcohol) Comments No Sex and Gender Information Value Date Recorded Sex Assigned at Not on file Legal Sex Female 9:31 AM TIRE FABRIC INSPECTOR Gender Identity Not on file Sexual Orientation [...] to SARMAD Episodes last 90 days/Comments: AF [place] 5.0 %, the the longest most recent [...] Final Result * DEVICE CHECK - REMOTE (03/31/2021 9:14 AM TIRE FABRIC INSPECTOR) Anatomical Region Laterality Modality Other Narrative 04/02/2021 8:52 AM TIRE FABRIC INSPECTOR This patient received a Medtronic Pacemaker. ??They [...] to SARMAD Episodes last 90 days/Comments: AF [place] 6.1 %, the longest episode lasted 1 [...] Final Result * DEVICE CHECK - REMOTE (12/30/2020 9:06 [...] to SARMAD Episodes last 90 days/Comments: AF [place] 7.1 %, the longest episode was 24 [...] Final Result * DEVICE CHECK - REMOTE (09/23/2020 8:44 AM CDT) Anatomical Region Laterality Modality Other Narrative 09/23/2020 9:59 AM CDT This patient received a Medtronic Pacemaker. ??They had a routine ??remote transmission on 09/23/2020. Device implant indications: ??Sick sinus syndrome ?? Interrogation of the patient's device demonstrates the following: Presenting EGM: ??A paced V sensed @ 72 bpm Lead Measurements Right Atrium Right Ventricle Sensitivity (mV) Not done mV 5.6-16.0 mV Impedence (Ohms) 581 ohms 557 ohms Pace Threshold 1.125 V @ 0.4 ms 0.625 V @ 0.4 ms Pacing % 97.4 % 0.4 % Battery Status: ??4.0 years to SARMAD Episodes last 90 days/Comments: AF [place] 4.2 %, the longest episode lasted 21 hours and 48 minutes. ?? Ventricular rates ranged between 79 and 117 beats per minute. NORMAL DEVICE FUNCTION PROGRAMMED Anti-coagulant(s): ??Pradaxa 150 mg twice daily Anti-arrhythmic(s): ??Cardizem LA 180 mg daily, Toprol-XL 25 mg daily Plan: 1) normal Medtronic Pacemaker evaluation 2) Medtronic remote transmission scheduled in 3 months. Jaycob Mar R.N. Yoni Matamoros MD [facility] PRO CEDURES Final Result * DEVICE CHECK - REMOTE (06/10/2020 9:27 AM CDT) Anatomical Region Laterality Modality Other Narrative 06/10/2020 2:13 PM CDT This patient received a Medtronic Pacemaker. ??They had a routine ??remote transmission on 06/10/2020. Device implant indications: ??Sick sinus syndrome ?? Interrogation of the patient's device demonstrates the following: Presenting EGM: ??A paced V sensed @ 77 bpm Lead Measurements Right Atrium Right Ventricle Sensitivity (mV) Not done mV 5.6-16.0 mV Impedence (Ohms) 590 ohms 521 ohms Pace Threshold 1.25 V @ 0.4 ms 0.625 V @ 0.4 ms Pacing % 95.8 % 0.4 % Battery Status: ??4.0 years to SARMAD Episodes last 90 days/Comments: AF [place] 6.2 %, the longest episode lasting 20 hours, however the counters have not been reset since April 18, 2018. Average ventricular rates while in atrial fibrillation are right at 100 beats per minute. NORMAL DEVICE FUNCTION PROGRAMMED Anti-coagulant(s): ??Pradaxa 150 mg twice daily Anti-arrhythmic(s): ??Toprol-XL 12.5 mg daily, Cardizem LA 180 mg daily [...] Sinoatrial node dysfunction Cardiac pacemaker in situ SSS (sick sinus syndrome) (CMS/HCC) (HCC) Sinoatrial node dysfunction Cardiac pacemaker in situ Automatic implantable cardiac defibrillator in situ SSS (sick sinus syndrome) (CMS/HCC) (HCC) Sinoatrial node dysfunction Pacemaker Cardiac pacemaker in situ SSS (sick sinus syndrome) (CMS/HCC) (HCC) Sinoatrial node dysfunction Pacemaker Cardiac pacemaker in situ SSS (sick sinus syndrome) (CMS/HCC) (HCC) Sinoatrial node dysfunction Pacemaker Cardiac pacemaker in situ documented in this encounter Care Teams On Site Construction Superintendent Relationship Specialty Start Date End Date Hardy Morgan MD PhD [address] [facility] [address] [place] [address] PCP - General 12/02/16 08/10/22 Angie Riddle MD [address] [place] [address] Gynecology 08/19/16 documented as of this encounter
--- OUTSIDE RECORDS SUMMARY | 2024-03-01 05:51 | XMS_ITS | Encounter Summary ---
Author Organization [facility] Group Address [address] [facility] [address] [place] [address] Care Team Providers Care Supervisor Color Paste Mixing Name Role Phone Lida Land MD Primary Care Provider Angie Riddle MD Unavailable [phone] Reason for Visit * Reason Onset Date Comments Test Results 09/02/2016 Encounter Details Date Type Department Care Team (Late st Contact Info) Description 09/02/2016 Documentation [facility] [address] [facility] [address], [place] [address] Luisa Claudio, JULIANA [address] [facility] [address], [place] [address] Test Results Social History Tobacco Use Types Packs/Day Years Used Date Smoking Tobacco: Former Alcohol Use Standard Drinks/Week Comments No 0 (1 standard drink = 0.6 oz pur e alcohol) Comments No Sex and Gender Information Value Date Recorded Sex Assigned at Not on file Legal Sex Female 9:31 AM DISPATCHER MAINTENANCE Gender Identity Not on file Sexual Orientation Not on file documented as of this encounter Progress Notes * Luisa Claudio WHNP - 09/02/2016 1:23 PM CDT Core bx - benign. Recommend 6 month follow up. Patient aware. Recall for January with imaging. documented in this encounter Plan of Treatment Not on file documented as of this encounter Visit Diagnoses Not on filedocumented in this encounter Care Teams Supervisor Color Paste Mixing Relationship Specialty Start Date End Date Lida Land MD [address] [facility] [address] [place] [address] PCP - General 05/29/16 12/01/16 Angie Riddle MD [address] [facility] [address] [place] [address] Gynecology 08/19/16 documented as of this encounter
--- OUTSIDE RECORDS SUMMARY | 2024-03-01 05:51 | XMS_ITS | Encounter Summary ---
Author Organization [facility] Address [address] [facility] [address] [place] [address] Care Team Providers Care Biology Adjunct Instructor Name Role Phone Angie Riddle MD Unavailable [phone] Hardy Morgan MD PhD Primary Care Provider + Reason for Visit * (Routine) - Closed Specialty Diagnoses / Procedures Referred By Viridiana oconnor Referred To Contact Diagnoses SSS (sick sinus syndrome) (CMS/HCC) ([facility]) Procedures DEVICE CHECK - REMOTE Yoni Matamoros MD [address] [facility] [address] [address] Phone: tel: fax: [facility] Referral ID Status Reason Start Date Expiration Date Visits Re quested Visits Authorized [id number] Closed 03/08/2019 09/16/2020 1 1 Encounter Details Date Type Department Care Team (Latest Contact Info) Description 09/04/2019 7:30 AM CDT Ancillary Procedure [facility] Medical [facility] Cardiology [address] [facility] [address] [place] [id number] SSS (sick sinus syndrome) ([facility]) Social History Tobacco Use Types Packs/Day Years Used Date Smoking Tobacco: Former Cigarettes Q uit: 1985 Smokeless Tobacco: Never Alcohol Use Standard Drinks/Week Comments No 0 (1 standard drink = 0.6 oz pur e alcohol) Comments No Sex and Gender Information Value Date Recorded Sex Assigned at Not on file Legal Sex Female 9:31 AM SENIOR TRAINER Gender Identity Not on file Sexual Orientation Not on file documented as of this encounter Plan of Treatment Not on file documented as of this encounter Procedures Procedure Name Priority Date/Time Associated Diagnosis Comments DEVICE CHECK - REMOTE Routine 09/04/2019 3:21 PM CDT SSS (sick sinus syndrome) (CMS/HCC) documented in this encounter Results * DEVICE CHECK - REMOTE (09/04/2019 3:21 [...] to SARMAD Episodes last 90 days/Comments: AF [place] 5.3 %, there were numerous episodes of [...] dysfunction documented in this encounter Care Teams Biology Adjunct Instructor Relationship Specialty Start Date End Date Hardy Morgan MD PhD [address] [facility] [address] [place] [address] PCP - General 12/02/16 08/10/22 Angie Riddle MD [address] [address] Gynecology 08/19/16 documented as of this encounter
--- OUTSIDE RECORDS SUMMARY | 2024-03-01 05:51 | XMS_ITS | Encounter Summary ---
Author Organization [facility] Medical [facility] Address [address] [facility] [address] [place] [address] Care Team Providers Care Concentrator Operator Name Role Phone Angie Riddle MD Unavailable [phone] Hardy Morgan MD PhD Primary Care Provider + Reason for Visit * Cardiology (Routine) - Closed Specialty Diagnoses / Procedures Referred By Viridiana oconnor Referred To Contact Diagnoses SSS (sick sinus syndrome) (CMS/HCC) (HCC) Procedures DEVICE CHECK - REMOTE Yoni Matamoros MD [address] [facility] [address] [place] [address] Phone: tel: fax: [facility] Group Referral ID Status Reason Start Date Expiration Date Visits Re quested Visits Authorized [id number] Closed 02/28/2020 03/29/2021 1 1 Encounter Details Date Type Department Care Team (Latest Contact Info) Description 09/23/2020 9:45 AM CDT Ancillary Procedure [facility] Medical [facility] Cardiology [address] [facility] [address] [place] [address] SSS (sick sinus syndrome) (CMS/HCC) ([facility] Cardiac pacemaker in situ; Automatic implantable cardiac defibrillator in situ Social History Tobacco Use Types Packs/Day Years Used Date Smoking Tobacco: Former Cigarettes Q uit: 1985 Smokeless Tobacco: Never Alcohol Use Standard Drinks/Week Comments No 0 (1 standard drink = 0.6 oz pur e alcohol) Comments No Sex and Gender Information Value Date Recorded Sex Assigned at Not on file Legal Sex Female 9:31 AM SALESPERSON BURIAL PLOTS Gender Identity Not on file Sexual Orientation Not on file documented as of this encounter Plan of Treatment Not on file documented as of this encounter Procedures Procedure Name Priority Date/Time Associated Diagnosis Comments DEVICE CHECK - REMOTE Routine 09/23/2020 8:44 AM CDT SSS (sick sinus syndrome) (CMS/HCC) (HCC) documented in this encounter Results * DEVICE CHECK - REMOTE (09/23/2020 8:44 [...] to SARMAD Episodes last 90 days/Comments: AF [place] 4.2 %, the longest episode lasted 21 [...] situ Automatic implantable cardiac defibrillator in situ documented in this encounter Care Teams Concentrator Operator Relationship Specialty Start Date End Date Hardy Morgan MD PhD [address] [place] [address] PCP - General 12/02/16 08/10/22 Angie Riddle MD [address] [place] [address] Gynecology 08/19/16 documented as of this encounter
--- OUTSIDE RECORDS SUMMARY | 2024-03-01 05:51 | XMS_ITS | Encounter Summary ---
Author Organization [facility] Medical Group Address [address] [facility] [address] [place] [address] Care Team Providers Care Candy Waffle Assembler Name Role Phone Angie Riddle MD Unavailable [phone] Hardy Morgan MD PhD Primary Care Provider + Reason for Visit * (Routine) - Closed Specialty Diagnoses / Procedures Referred By Viridiana oconnor Referred To Contact Diagnoses SSS (sick sinus syndrome) (CMS/HCC) ([facility]) Procedures DEVICE CHECK - REMOTE Yoni Matamoros MD [address] [facility] [address], [place] [address] Phone: tel: fax: [facility] Referral ID Status Reason Start Date Expiration Date Visits Re quested Visits Authorized [id number] Closed 03/08/2019 09/16/2020 1 1 Encounter Details Date Type Department Care Team (Latest Contact Info) Description 03/11/2020 10:15 AM SCHOOL BUS OPERATOR Ancillary Procedure [facility] Medical [facility] Cardiology [address] [facility] [address] [place] [address] SSS (sick sinus syndrome) ([facility]) Social History Tobacco Use Types Packs/Day Years Used Date Smoking Tobacco: Former Cigarettes Q uit: 1985 Smokeless Tobacco: Never Alcohol Use Standard Drinks/Week Comments No 0 (1 standard drink = 0.6 oz pur e alcohol) Comments No Sex and Gender Information Value Date Recorded Sex Assigned at Not on file Legal Sex Female 9:31 AM SCHOOL BUS OPERATOR Gender Identity Not on file Sexual Orientation Not on file documented as of this encounter Plan of Treatment Not on file documented as of this encounter Procedures Procedure Name Priority Date/Time Associated Diagnosis Comments DEVICE CHECK - REMOTE Routine 03/11/2020 8:18 AM SCHOOL BUS OPERATOR SSS (sick sinus syndrome) (CMS/HCC) documented in this encounter Results * DEVICE CHECK - REMOTE (03/11/2020 8:18 AM SCHOOL BUS OPERATOR) Anatomical Region Laterality Modality Other Narrative 03/12/2020 8:13 PM SCHOOL BUS OPERATOR This patient received a Medtronic Pacemaker. ??They [...] to SARMAD Episodes last 90 days/Comments: AF [place] 6.7 %, there were numerous episodes classified [...] scheduled in 3 months. Jaycob Mar, RKleverN. Yoni Matamoros MD [facility] PRO CEDURES Final Result documented in this encounter Visit Diagnoses Diagnosis SSS (sick sinus syndrome) (CMS/HCC) (HCC) Sinoatrial node dysfunction documented in this encounter Care Teams Candy Waffle Assembler Relationship Specialty Start Date End Date Hardy Morgan MD PhD [address] [facility] [address] [place] [address] PCP - General 12/02/16 08/10/22 Angie Riddle MD [address] [place] [address] Gynecology 08/19/16 documented as of this encounter
--- OUTSIDE RECORDS SUMMARY | 2024-03-01 05:51 | XMS_ITS | Encounter Summary ---
Author Organization [facility] Address [address] [facility] [address] [place] [address] Care Team Providers Care Roll Threader Operator Name Role Phone Angie Riddle MD Unavailable Hardy Morgan MD PhD Primary Care Provider + Reason for Visit * Cardiology (Routine) - Closed Specialty Diagnoses / Procedures Referred By Viridiana oconnor Referred To Contact Diagnoses SSS (sick sinus syndrome) (CMS/HCC) ([facility]) Procedures DEVICE CHECK - REMOTE Yoni Matamoros MD [address] [facility] [address] [place] [address] Phone: tel: fax: [facility] Referral ID Status Reason Start Date Expiration Date Visits Re quested Visits Authorized [id number] Closed 02/28/2020 03/29/2021 1 1 Encounter Details Date Type Department Care Team (Latest Contact Info) Description 06/10/2020 11:30 AM CDT Ancillary Procedure [facility] Medical [facility] Cardiology [address] [facility] [address] [place] [address] SSS (sick sinus syndrome) (CMS/HCC); Cardiac pacemaker in situ Social History Tobacco Use Types Packs/Day Years Used Date Smoking Tobacco: Former Cigarettes Q uit: 1985 Smokeless Tobacco: Never Alcohol Use Standard Drinks/Week Comments No 0 (1 standard drink = 0.6 oz pur e alcohol) Comments No Sex and Gender Information Value Date Recorded Sex Assigned at Not on file Legal Sex Female 9:31 AM CANDY COOKER HELPER Gender Identity Not on file Sexual Orientation Not on file documented as of this encounter Plan of Treatment Not on file documented as of this encounter Procedures Procedure Name Priority Date/Time Associated Diagnosis Comments DEVICE CHECK - REMOTE Routine 06/10/2020 9:27 AM CDT SSS (sick sinus syndrome) (CMS/HCC) documented in this encounter Results * DEVICE CHECK - REMOTE (06/10/2020 9:27 [...] to SARMAD Episodes last 90 days/Comments: AF [place] 6.2 %, the longest episode lasting 20 [...] transmission scheduled in 3 months. Jaycob Mar RKleverN. us Yoni Matamoros MD CV CARDIAC SERVICES PRO CEDURES Final Result documented in this encounter Visit Diagnoses Diagnosis SSS (sick sinus syndrome) (CMS/HCC) (HCC) Sinoatrial node dysfunction Cardiac pacemaker in situ documented in this encounter Care Teams Roll Threader Operator Relationship Specialty Start Date End Date Hardy Morgan MD PhD [address] [place] [address] PCP - General 12/02/16 08/10/22 Angie Riddle MD [address] [place] [address] Gynecology 08/19/16 documented as of this encounter
--- OUTSIDE RECORDS SUMMARY | 2024-03-01 05:51 | XMS_ITS | Encounter Summary ---
Author Organization [facility] Healthcare Address [address] [place] [address] Care Team Providers Care Ecommerce Merchandising Manager Name Role Phone Angie Riddle MD Unavailable [phone] Hardy Morgan MD PhD Primary Care Provider + Encounter Details Date Type Department Care Team (Latest Contact Info) Description 01/01/2017 2:28 PM CDT - 01/01/2017 4:56 PM CDT Hospital Encounter [facility] - Interventional Radiology [address] [place] [address] Smith Ortiz DO [address] [place] [address] [address] [place] [address] Discharge Disposition: Discharge to home or self care Social History Tobacco Use Types Packs/Day Years Used Date Smoking Tobacco: Former Alcohol Use Standard Drinks/Week Comments No 0 (1 standard drink = 0.6 oz pur e alcohol) Comments No Sex and Gender Information Value Date Recorded Sex Assigned at Not on file Legal Sex Female 9:31 AM ACURA SALES CONSULTANT Gender Identity Not on file Sexual Orientation [...] IR EPIDURAL INJECTION LUMBOSACRAL W GUIDANCE Routine 01/01/2017 8:09 PM CDT documented in this encounter Results * Epidural Injection Lumbosacral W Guidance (01/01/2017 8:09 PM CDT) Anatomical Region Laterality Modality Spine N/A X-Ray Angiograph y 01/01/2017 8:09 PM CDT Narrative 01/01/2017 8:18 PM CDT EXAM: ??LUMBAR EPIDURAL INJECTION USING [...] FINDINGS: Prior to procedure, the patient reported 4 out of 10 pain. Immediately after the procedure, the patient reported 2 out of 10 pain. IMPRESSION: Lumbar epidural injection as described above. Electronically signed by: Moises Soler M.D. Radiologist: MOISES SOLER MD ?? Attending: ??SMITH ORTIZ ??D.O. Requesting: SMITH ORTIZ ??D.O. Requesting Fax: ?? Requesting ID: [id number] Attending Fax: ?? Attending ID: ?? [id number] Completed Time: ?? 01/01/2017 3:09 PM Dictated Time: ?N/A Transcribed Time: 01/01/2017 3:17 PM Signed by: ?MOISES SOLER MD ?? on 01/01/2017 3:17 PM Report To 1 ID: Report To 1 Name: , Report To 1 FAX: Report To 2 ID: Report To 2 Name: , Report To 2 FAX: Report To 3 ID: Report To 3 Name: , Report To 3 FAX: NextGen Order #: Procedure Note Miscellaneous, Not In File - 01/01/2017 EXAM: LUMBAR EPIDURAL INJECTION USING FLUOROSCOPY. HISTORY: [...] FINDINGS: Prior to procedure, the patient reported 4 out of 10 pain. Immediately after the procedure, the patient reported 2 out of 10 pain. IMPRESSION: Lumbar epidural injection as described above. Electronically signed by: Moises Soler M.D. Radiologist: MOISES SOLER MD Attending: SMITH ORTIZ D.O. Requesting: SMITH ORTIZ D.O. Requesting Requesting ID: [id number] Attending Attending ID: [id number] Completed Time: 01/01/2017 3:09 PM Dictated Time: N/A Transcribed Time: 01/01/2017 3:17 PM Signed by: MOISES SOLER MD on 01/01/2017 3:17 PM Report To 1 ID: Report To [...] on filedocumented in this encounter Care Teams Ecommerce Merchandising Manager Relationship Specialty Start Date End Date Hardy Morgan MD PhD [address] [facility] [address] [place] [address] PCP - General 12/02/16 08/10/22 Angie Riddle MD [address] [facility] [address] [place] [address] Gynecology 08/19/16 documented as of this encounter
--- OUTSIDE RECORDS SUMMARY | 2024-03-01 05:51 | XMS_ITS | Encounter Summary ---
Author Organization [facility] Medical Group Address [address] [place] [address] Care Team Providers Care Cognos Developer Name Role Phone Angie Riddle MD Unavailable [phone] Hardy Morgan MD PhD Primary Care Provider + Reason for Visit * Reason Comments Device Evaluation routine remote * Cardiology (Routine) - Canceled Specialty Diagnoses / Procedures Referred By Contac t Referred To Contact Diagnoses Sick sinus syndrome (CMS/HCC) (HCC) Procedures DEVICE CHECK - REMOTE Nilton Cho MD Phone: tel: fax: Referral ID Status Reason Start Date Expiration Date V isits Requested Visits Authorized [id number] Canceled 08/26/2016 02/22/2017 1 1 Encounter Details Date Type Department Care Team (Latest Contact Info) Description 12/13/2017 7:15 AM CDT Ancillary Procedure [facility] Medical [facility] Cardiology [address] [place] [address] Sick sinus syndrome (CMS/HCC); Pacemaker; [...] on file Legal Sex Female 9:31 AM BRANCH COORDINATOR Gender Identity Not on file Sexual Orientation Not on file documented as of this encounter Plan of Treatment Not on file documented as of this encounter Procedures Procedure Name Priority Date/Time Associated Diagnosis Comments DEVICE CHECK - REMOTE Routine 02/10/2018 12:30 PM BRANCH COORDINATOR Sick sinus syndrome (CMS/HCC) documented in this encounter Results * DEVICE CHECK - REMOTE (02/10/2018 12:30 PM BRANCH COORDINATOR) Anatomical Region Laterality Modality Other Narrative 02/23/2018 7:17 AM BRANCH COORDINATOR This patient received a 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 Chronic A lead is from 09-13-03. ??This is a routine Carelink remote evaluation on 06/14/17. ??She takes Pradaxa for anticoagulation and Diltiazem and Metoprolol for arrhythmias per med list. ? Interrogation of the patient? s device demonstrates Appropriate DDD pacer function Appropriate battery voltage, Stable lead impedances, Stable atrial and RV sensing TH Stable Atrial and RV pacing thresholds. ?? (1810) atrial arrhythmias noted, total 2.9 %, longest episode lasted 15.5 hours on 04/22/17, IEGMs appear AT/AF. (0) ventricular arrhythmias noted. AP-98.1 %, RV paced 0.4 % Presenting-A Paced/V Sensed Magnet rate DOO 85 ppm Battery-2.79 V, 6 years to SARMAD, Atrial-Paced mv, 597 ohms, 1.5 V @ 0.4 ms RV-5.6-16.0 mv, 554 ohms, 0.625 V @ 0.4 ms Plan: 1) DDD pacemaker evaluation as noted above. 2) Carelink remote transmissions in 3, 6, and 9 months. 3) Raysa to send letter with results and dates for next remotes. Jessica Real RN us Nilton Cho MD CV CARDIAC SERVICES PROCEDUR ES Final Result documented in this encounter Visit Diagnoses Diagnosis Sick sinus syndrome (CMS/HCC) (HCC) Sinoatrial node dysfunction Pacemaker Cardiac pacemaker in situ Paroxysmal atrial fibrillation (CMS/HCC) (HCC) Atrial fibrillation documented in this encounter Care Teams Cognos Developer Relationship Specialty Start Date End Date Hardy Morgan MD PhD [address] [place] [address] PCP - General 12/02/16 08/10/22 Angie Riddle MD [address] [facility] [address] [place] [address] Gynecology 08/19/16 documented as of this encounter
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
--- OUTSIDE RECORDS SUMMARY | 2024-03-01 05:51 | XMS_ITS | Encounter Summary ---
Author Organization [facility] Medical Group Address [address] [place] [address] Care Team Providers Care Sales Representative Groceries Name Role Phone Angie Riddle MD Unavailable [phone] Hardy Morgan MD PhD Primary Care Provider + Reason for Visit * (Routine) - Closed Specialty Diagnoses / Procedures Referred By Viridiana oconnor Referred To Contact Diagnoses SSS (sick sinus syndrome) (CMS/HCC) ([facility]) Procedures DEVICE CHECK - IN OFFICE Yoni Matamoros MD [address] [facility] [address] [place] [address] Phone: tel: fax: [facility] Medical Group Referral ID Status Reason Start Date Expiration Date Visits Re quested Visits Authorized [id number] Closed 03/08/2019 09/16/2020 1 1 Encounter Details Date Type Department Care Team (Latest Contact Info) Description 08/12/2020 10:30 AM CDT Ancillary Procedure [facility] Medical [facility] Cardiology [address] [place] [address] SSS (sick sinus syndrome) (CMS/HCC); Cardiac pacemaker [...] on file Legal Sex Female 9:31 AM TEMPLE MEAT CUTTER Gender Identity Not on file Sexual Orientation Not on file documented as of this encounter Plan of Treatment Not on file documented as of this encounter Procedures Procedure Name Priority Date/Time Associated Diagnosis Comments DEVICE CHECK - IN OFFICE Routine 08/12/2020 10:42 AM CDT SSS (sick sinus syndrome) (CMS/HCC) [...] to SARMAD Episodes last 90 days/Comments: AF [place] 6.5 %, there were numerous AT/AF episodes [...] documented in this encounter Care Teams Sales Representative Groceries Relationship Specialty Start Date End Date Hardy Morgan MD PhD [address] [place] [address] PCP - General 12/02/16 08/10/22 Angie Riddle MD [address] [place] [address] Gynecology 08/19/16 documented as of this encounter
--- OUTSIDE RECORDS SUMMARY | 2024-03-01 05:51 | XMS_ITS | Encounter Summary ---
Author Organization [facility] Medical Group Address [address] [address] Care Team Providers Care Chilling Hood Operator Name Role Phone Angie Riddle MD Unavailable [phone] Hardy Morgan MD PhD Primary Care Provider + Reason for Referral * (Routine) - Closed Specialty Diagnoses / Procedures Referred By Contac t Referred To Contact Diagnoses SSS (sick sinus syndrome) (CMS/HCC) (HCC) Procedures DEVICE CHECK - REMOTE Nilton Cho MD Phone: tel: fax: [facility] Medical [facility] Referral ID Status Reason Start Date Expiration Date Visits Re quested Visits Authorized [id number] Closed 09/06/2018 03/17/2020 1 1 * (Routine) - Closed Specialty Diagnoses / Procedures Referred By Contac t Referred To Contact Diagnoses SSS (sick sinus syndrome) (CMS/HCC) (HCC) Procedures DEVICE CHECK - REMOTE Nilton Cho MD Phone: tel: fax: [facility] Medical [facility] Referral ID Status Reason Start Date Expiration Date Visits Re quested Visits Authorized [id number] Closed 09/06/2018 03/17/2020 1 1 Encounter Details Date Type Department Care Team (Late st Contact Info) Description 09/06/2018 Orders Only [facility] Medical Group Cardiology [address] [facility] [address] [place] [address] Nilton Cho MD [address] [place] [address] SSS (sick sinus syndrome) (CMS/HCC) (Primary Dx) Social History Tobacco Use Types Packs/Day Years Used Date Smoking Tobacco: Former Cigarettes Q uit: 1985 Smokeless Tobacco: Never Alcohol Use Standard Drinks/Week Comments No 0 (1 standard drink = 0.6 oz pur e alcohol) Comments No Sex and Gender Information Value Date Recorded Sex Assigned at Not on file Legal Sex Female 9:31 AM REDUCTION FURNACE OPERATOR HELPER Gender Identity Not on file Sexual Orientation Not on file documented as of this encounter Plan of Treatment Not on file documented as of this encounter Results * DEVICE CHECK - REMOTE (12/12/2018 4:01 PM CDT) Anatomical Region Laterality Modality Other Narrative 01/10/2019 2:07 PM REDUCTION FURNACE OPERATOR HELPER This patient received a Medtronic Pacemaker. ??They [...] to SARMAD Episodes last 90 days/Comments: AF [place] 4.3 %, 2 days total time, longest duration 15 hours, average time <1 hour 632 AT/AF events - appears AFib NORMAL DEVICE FUNCTION PROGRAMMED Anti-coagulant(s): Pradaxa Anti-arrhythmic(s): metoprolol Plan: 1) Medtronic Pacemaker evaluation 2) Carelink remote transmission scheduled in 3 months. 3) Letter sent with transmission results Shahram Yanez), [facility], CCDS - Certified Cardiac Device Specialist Nilton Cho MD CV CARDIAC SERVICES PROCEDUR ES Final Result * DEVICE CHECK - REMOTE (09/12/2018 1:45 [...] sent with transmission results Francine Gentile RN, [facility], Arrhythmia Device Specialist Nilton Cho MD CV CARDIAC SERVICES PROCEDUR ES Final Result documented in this encounter Visit Diagnoses Diagnosis SSS (sick sinus syndrome) (CMS/HCC) (HCC)- Primary Sinoatrial node dysfunction SSS (sick sinus syndrome) (CMS/HCC) (HCC) Sinoatrial node dysfunction Pacemaker Cardiac pacemaker in situ SSS (sick sinus syndrome) (CMS/HCC) (HCC) Sinoatrial node dysfunction documented in this encounter Care Teams Chilling Hood Operator Relationship Specialty Start Date End Date Hardy Morgan MD PhD [address] [facility] [address] [place] [address] PCP - General 12/02/16 08/10/22 Angie Riddle MD [address] [place] [address] Gynecology 08/19/16 documented as of this encounter
--- OUTSIDE RECORDS SUMMARY | 2024-03-01 05:51 | XMS_ITS | Encounter Summary ---
Author Organization [facility] Medical Group Address [address] [place] [address] Care Team Providers Care Wool Merchant Name Role Phone Angie Riddle MD Unavailable Hardy Morgan MD PhD Primary Care Provider + Encounter Details Date Type Department Care Team (Latest Contact Info) Description 06/13/2018 11:00 AM CDT Ancillary Procedure [facility] Medical [facility] Cardiology [address] [place] [address] SSS (sick sinus syndrome) (CMS/HCC) Social History Tobacco Use Types Packs/Day Years Used Date Smoking Tobacco: Former Cigarettes Q uit: 1985 Smokeless Tobacco: Never Alcohol Use Standard Drinks/Week Comments No 0 (1 standard drink = 0.6 oz pur e alcohol) Comments No Sex and Gender Information Value Date Recorded Sex Assigned at Not on file Legal Sex Female 9:31 AM GALVANIZER ZINC Gender Identity Not on file Sexual Orientation Not on file documented as of this encounter Plan of Treatment Not on file documented as of this encounter Procedures Procedure Name Priority Date/Time Associated Diagnosis Comments DEVICE CHECK - REMOTE Routine 06/14/2018 9:04 AM CDT SSS (sick sinus syndrome) (CMS/HCC) documented in this encounter Results * DEVICE CHECK - REMOTE (06/14/2018 9:04 AM CDT) Anatomical Region Laterality Modality Other Narrative 07/07/2019 1:12 PM CDT This patient received a Medtronic Pacemaker. ??They had a routine ??remote transmission on 06/13/2018. Device implant indications: ??Sick sinus syndrome ?? Interrogation of the patient's device demonstrates the following: Presenting EGM: ??A paced V sensed @ 60 bpm Lead Measurements Right Atrium Right Ventricle Sensitivity (mV) Not done mV 5.6-16.0 mV Impedence (Ohms) 571 ohms 562 ohms Pace Threshold 1.75 V @ 0.4 ms 0.625 V @ 0.4 ms Pacing % 97.7 % 0.4 % Battery Status: ??4.0 years to SARMAD Episodes last 90 days/Comments: AF [place] 3.6 %, there were 123 episodes classified as mode switch with the longest 1 lasting 14 hours and 17 minutes average ventricular rates 81-124 beats per minute. NORMAL DEVICE FUNCTION PROGRAMMED Anti-coagulant(s): ??Pradaxa 150 mg twice daily Anti-arrhythmic(s): ??Toprol XL 12.5 mg daily Plan: 1) normal Medtronic Pacemaker evaluation 2) Medtronic remote transmission scheduled in 3 months. 3) Letter sent with transmission results Jaycob Mar R.N. Nilton Cho MD CV CARDIAC SERVICES PROCEDUR ES Final Result documented in this encounter Visit Diagnoses Diagnosis SSS (sick sinus syndrome) (CMS/HCC) (HCC) Sinoatrial node dysfunction documented in this encounter Care Teams Wool Merchant Relationship Specialty Start Date End Date Hardy Morgan MD PhD [address] [facility] [address] [place] [address] PCP - General 12/02/16 08/10/22 Angie Riddle MD [address] [place] [address] Gynecology 08/19/16 documented as of this encounter
--- OUTSIDE RECORDS SUMMARY | 2024-03-01 05:51 | XMS_ITS | Encounter Summary ---
Author Organization [facility] Medical Group Address [address] [place] [address] Care Team Providers Care Wafer Batter Mixer Name Role Phone Angie Riddle MD Unavailable [phone] Hardy Morgan MD PhD Primary Care Provider + Encounter Details Date Type Department Care Team (Late st Contact Info) Description 02/10/2018 Telephone [facility] Cardiology [address] [facility] [address] [address] Nilton Cho MD [address] [facility] [address] [address] Social History Tobacco Use Types Packs/Day Years Used Date Smoking Tobacco: Former Cigarettes Q uit: 1985 Smokeless Tobacco: Never Alcohol Use Standard Drinks/Week Comments No 0 (1 standard drink = 0.6 oz pur e alcohol) Comments No Sex and Gender Information Value Date Recorded Sex Assigned at Not on file Legal Sex Female 9:31 AM PLATE PRINTER Gender Identity Not on file Sexual Orientation Not on file documented as of this encounter Miscellaneous Notes * Telephone Encounter - Lia Braxton MA - 02/14/2018 11:41 AM PLATE PRINTER Letter and schedule mailed to pt. E PRINTER * Telephone Encounter - Jessica Real RN - 02/10/2018 12:40 PM PLATE PRINTER Raysa, Can you please send this patient a letter stating their device is functioning properly and the dates for her next remotes/in office device check? Thank you, Jessica E PRINTER documented in this encounter Plan of Treatment Not on file documented as of this encounter Visit Diagnoses Not on filedocumented in this encounter Care Teams Wafer Batter Mixer Relationship Specialty Start Date End Date Hardy Morgan MD PhD [address] [facility] [address] [facility] [address] [place] [address] PCP - General 12/02/16 08/10/22 Angie Riddle MD [address] [place] [address] Gynecology 08/19/16 documented as of this encounter
--- OUTSIDE RECORDS SUMMARY | 2024-03-01 05:51 | XMS_ITS | Encounter Summary ---
Author Organization [facility] Medical Group Address [address] [place] [address] Care Team Providers Care Dcs Engineer Name Role Phone Angie Riddle MD Unavailable [phone] Hardy Morgan MD PhD Primary Care Provider + Encounter Details Date Type Department Care Team (Late st Contact Info) Description 03/05/2017 Orders Only [facility] Health Information Management [address] [place] [address] Scanning, Provider Social History Tobacco Use Types Packs/Day Years Used Date Smoking Tobacco: Former Alcohol Use Standard Drinks/Week Comments No 0 (1 standard drink = 0.6 oz pur e alcohol) Comments No Sex and Gender Information Value Date Recorded Sex Assigned at Not on file Legal Sex Female 9:31 AM PRINCIPAL ASSOCIATE Gender Identity Not on file Sexual Orientation Not on file documented as of this encounter Plan of Treatment Not on file documented as of this encounter Procedures Procedure Name Priority Date/Time Associated Diagnosis Comments SCAN - RADIOLOGY/IMAGING 03/05/2017 documented in this encounter Results * SCAN - RADIOLOGY/IMAGING (03/05/2017) Anatomical Region Laterality Modality Other Provider Scanning Final Result documented in this encounter Visit Diagnoses Not on filedocumented in this encounter Care Teams Dcs Engineer Relationship Specialty Start Date End Date Hardy Morgan MD PhD [address] [place] [address] PCP - General 12/02/16 08/10/22 Angie Riddle MD [address] [address] Gynecology 08/19/16 documented as of this encounter
--- OUTSIDE RECORDS SUMMARY | 2024-03-01 05:51 | XMS_ITS | Encounter Summary ---
Author Organization [facility] Medical [facility] Address [address] [facility] [address] [place] [address] Care Team Providers Care Rn Travel Name Role Phone Angie Riddle MD Unavailable [phone] Hardy Morgan MD PhD Primary Care Provider + Reason for Visit * (Routine) - Closed Specialty Diagnoses / Procedures Referred By Viridiana oconnor Referred To Contact Diagnoses SSS (sick sinus syndrome) (CMS/HCC) ([facility]) Procedures DEVICE CHECK - REMOTE Yoni Matamoros MD [address] [facility] [address], [place] [address] Phone: tel: fax: [facility] Medical Group Referral ID Status Reason Start Date Expiration Date Visits Re quested Visits Authorized [id number] Closed 03/08/2019 09/16/2020 1 1 Encounter Details Date Type Department Care Team (Latest Contact Info) Description 04/06/2019 1:35 PM WORKING SECOND HAND Ancillary Procedure [facility] Medical [facility] Cardiology [address] [facility] [address] [place] [address] SSS (sick sinus syndrome) (CMS/HCC); Pacemaker Social History Tobacco Use Types Packs/Day Years Used Date Smoking Tobacco: Former Cigarettes Q uit: 1985 Smokeless Tobacco: Never Alcohol Use Standard Drinks/Week Comments No 0 (1 standard drink = 0.6 oz pur e alcohol) Comments No Sex and Gender Information Value Date Recorded Sex Assigned at Not on file Legal Sex Female 9:31 AM WORKING SECOND HAND Gender Identity Not on file Sexual Orientation Not on file documented as of this encounter Plan of Treatment Not on file documented as of this encounter Procedures Procedure Name Priority Date/Time Associated Diagnosis Comments DEVICE CHECK - REMOTE Routine 04/06/2019 1:30 PM WORKING SECOND HAND SSS (sick sinus syndrome) (CMS/HCC) documented in this encounter Results * DEVICE CHECK - REMOTE (04/06/2019 1:30 PM WORKING SECOND HAND) Anatomical Region Laterality Modality Other Narrative 04/06/2019 3:58 PM WORKING SECOND HAND This patient received a Medtronic Pacemaker. ??They [...] to SARMAD Episodes last 90 days/Comments: AF [place] 4.2 %, longest duration the 15 minutes and 20 seconds. ??Average ventricular rates while in AFib ranged from 80 to 120 beats per minute. NORMAL DEVICE FUNCTION PROGRAMMED Anti-coagulant(s): ??Pradaxa Anti-arrhythmic(s): ??Cardizem 180 mg, Toprol XL 25 mg once daily. Plan: 1) normal Medtronic Pacemaker evaluation 2) Medtronic remote transmission scheduled in 3 months. 3) Letter sent with transmission results Zhanna Enriquez R.N. us Yoni Matamoros MD CV CARDIAC SERVICES PRO CEDURES Final Result documented in this encounter Visit Diagnoses Diagnosis SSS (sick sinus syndrome) (CMS/HCC) (HCC) Sinoatrial node dysfunction Pacemaker Cardiac pacemaker in situ documented in this encounter Care Teams Rn Travel Relationship Specialty Start Date End Date Hardy Morgan MD PhD [address] [facility] [address] [place] [address] PCP - General 12/02/16 08/10/22 Angie Riddle MD [address] [address] Gynecology 08/19/16 documented as of this encounter
--- OUTSIDE RECORDS SUMMARY | 2024-03-01 05:51 | XMS_ITS | Encounter Summary ---
Author Organization [facility] Medical Group Address [address] [place] [address] Care Team Providers Care Cost Report Clerk Name Role Phone Angie Riddle MD Unavailable [phone] Hardy Morgan MD PhD Primary Care Provider + Reason for Visit * Reason Onset Date Comments pradaxa refill 06/13/2018 Encounter Details Date Type Department Care Team (Late st Contact Info) Description 06/13/2018 Telephone [facility] [place] [address] [facility] [address] [place] [address] Nilton Cho MD [address] [facility] [address] [place] [address] pradaxa refill Social History Tobacco Use Types Packs/Day Years Used Date Smoking Tobacco: Former Cigarettes Q uit: 1985 Smokeless Tobacco: Never Alcohol Use Standard Drinks/Week Comments No 0 (1 standard drink = 0.6 oz pur e alcohol) Comments No Sex and Gender Information Value Date Recorded Sex Assigned at Not on file Legal Sex Female 9:31 AM CONDENSER WINDER Gender Identity Not on file Sexual Orientation Not on file documented as of this encounter Ordered Prescriptions Prescription Sig Dispense Quantity Refills Last Filled Start Date End Date dabigatran (PRADAXA) 150 mg capsule Take 1 capsule (150 mg total) by mouth 2 (two) times a day 180 capsule 3 06/13/2018 0 documented in this encounter Miscellaneous Notes * Telephone Encounter - Sadia Monte LPN - 06/20/2018 2:24 PM CDT Called pharmacy and gave verbal order for rx as per below. Verified pt correct address with pharmacy, they will contact and let pt know when rx is sent. * Telephone Encounter - Shakira Iyer - 06/20/2018 12:40 PM CDT Pt would like 90 day script sent to [facility] [address] [place] [address]. * Telephone Encounter - Sadia Monte LPN - 06/13/2018 12:54 PM CDT Pt. LVM on refill line requesting a refill on pradaxa 150mg. Pt was requesting that we email it to her. Contacted her and let her know that we can't email prescriptions and that I would have to send it to a pharmacy. Requesting I send to [facility] and she will have it transferred if needed. Per BLAIR 04/18/18, continue current medication regimen. Fu appt scheduled 09/12/18. Will send in 1 yr supply. documented in this encounter Plan of Treatment Not on file documented as of this encounter Visit Diagnoses Not on filedocumented in this encounter Discontinued Medications Medication Sig Discontinue Reason Start Date End Da te dabigatran (PRADAXA) 150 mg capsule Take 1 capsule (150 mg total) by mouth 2 (two) times a day. Reorder 04/13/2018 06/13/2018 documented as of this encounter Care Teams Cost Report Clerk Relationship Specialty Start Date End Date Hardy Morgan MD PhD [address] [facility] [address] [place] [address] PCP - General 12/02/16 08/10/22 Angie Riddle MD [address] [address] Gynecology 08/19/16 documented as of this encounter
--- OUTSIDE RECORDS SUMMARY | 2024-03-01 05:51 | XMS_ITS | Encounter Summary ---
Author Organization [facility] Address [address] [place] [address] Care Team Providers Care Category Consultant Name Role Phone Angie Riddle MD Unavailable [phone] Hardy Morgan MD PhD Primary Care Provider + Reason for Visit * Diagnostic Imaging (Routine) - Closed Specialty Diagnoses / Procedures Referred By Viridiana oconnor Referred To Contact Procedures Breast Imaging Screening Outside Reference Miscellaneous, Not In File Referral ID Status Reason Start Date Expiration Date Visits Re quested Visits Authorized [id number] Closed 12/18/2022 01/17/2024 1 1 Encounter Details Date Type Department Care Team (Late st Contact Info) Description 08/17/2019 Ancillary Procedure [facility] Outside Films Social History Tobacco Use Types Packs/Day Years Used Date Smoking Tobacco: Former Cigarettes Q uit: 1985 Smokeless Tobacco: Never Alcohol Use Standard Drinks/Week Comments No 0 (1 standard drink = 0.6 oz pur e alcohol) Comments No Sex and Gender Information Value Date Recorded Sex Assigned at Not on file Legal Sex Female 9:31 AM TRANSFERRER Gender Identity Not on file Sexual Orientation Not on file documented as of this encounter Plan of Treatment Not on file documented as of this encounter Procedures Procedure Name Priority Date/Time Associated Diagnosis Comments BREAST IMAGING MG SCREENING OUTSIDE REFERENCE Routine 08/17/2019 12:00 AM CDT documented in this encounter Results * Breast Imaging Screening Outside Reference (08/17/2019 12:00 AM CDT) Narrative [facility] - 12/18/2022 8:28 AM CDT This order has been auto-finalized and does not contain a result. us Not In File Miscellaneous IMG MAMMO PROCEDURES F inal Result RAD_PACS[facility] documented in this encounter Visit Diagnoses Not on filedocumented in this encounter Care Teams Category Consultant Relationship Specialty Start Date End Date Hardy Morgan MD PhD [address] [facility] [address] [place] [address] PCP - General 12/02/16 08/10/22 Angie Riddle MD [address] [facility] [address] [place] [address] Gynecology 08/19/16 documented as of this encounter
--- OUTSIDE RECORDS SUMMARY | 2024-03-01 05:52 | XMS_ITS | Encounter Summary ---
Author Organization [facility] Address [address] [facility] [address] [place] [address] Care Team Providers Care Second Class Welder Name Role Phone Lida Land MD Primary Care Provider [phone] Lida Land MD Primary Care Provider [phone] Angie Riddle MD Unavailable [phone] Hardy Morgan MD PhD Primary Care Provider + Encounter Details Date Type Department Care Team (Late st Contact Info) Description 11/22/2015 Orders Only [facility] Health Information Management [address] [place] [id number] Scanning, Provider Social History Tobacco Use Types Packs/Day Years Used Date Smoking Tobacco: Former Cigarettes Q uit: 03/01/1981 Alcohol Use Standard Drinks/Week Comments No 0 (1 standard drink = 0.6 oz pur e alcohol) Comments Unknown Sex and Gender Information Value Date Recorded Sex Assigned at Not on file Legal 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 Female 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 Gender Identity Not on file Sexual Orientation Not on file documented as of this encounter Plan of Treatment Not on file documented as of this encounter Procedures Procedure Name Priority Date/Time Associated Diagnosis Comments SCAN - RADIOLOGY/IMAGING 11/22/2015 documented in this encounter Results * SCAN - RADIOLOGY/IMAGING (11/22/2015) Anatomical Region Laterality Modality Other us Provider Scanning Final Result documented in this encounter Visit Diagnoses Not on filedocumented in this encounter Care Teams Second Class Welder Relationship Specialty Start Date End Date Lida Land MD [address] [facility] [address] [place] [address] PCP - General 05/29/16 12/01/16 Lida Land MD [address] [facility] [address] [place] [address] PCP - General 03/28/13 05/28/16 Hardy Morgan MD PhD [address] [facility] [address] [place] [address] PCP - General 12/02/16 08/10/22 Angie Riddle MD [address] [address] Gynecology 08/19/16 documented as of this encounter
--- OUTSIDE RECORDS SUMMARY | 2024-03-01 05:52 | XMS_ITS | Encounter Summary ---
Author Organization [facility] Address [address] [facility] [address] [place] [address] Care Team Providers Care Dobie Man Name Role Phone Lida Land MD Primary Care Provider [phone] Angie Riddle MD Unavailable [phone] Reason for Visit * Reason Comments Follow-up Encounter Details Date Type Department Care Team (Late st Contact Info) Description 08/19/2016 10:45 AM CDT Office Visit [facility] [address] [facility] [address] [place] [phone] Doug Hood MD [facility] [address] [place] [id number] Lump or mass in breast (Primary Dx) Social History Tobacco Use Types Packs/Day Years Used Date Smoking Tobacco: Former Alcohol Use Standard Drinks/Week Comments No 0 (1 standard drink = 0.6 oz pur e alcohol) Comments No Sex and Gender Information Value Date Recorded Sex Assigned at Not on file 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 Gender Identity Not on file Sexual Orientation Not on file documented as of this encounter Last Filed Vital Signs Vital Sign Reading Time Taken Comments Blood Pressure 150/91 08/19/2016 9:51 AM CDT Pulse 77 08/19/2016 9:51 AM CDT Temperature - - Respiratory Rate - - Oxygen Saturation - - Inhaled Oxygen Concentration - - Weight 52.2 kg (115 lb) 08/19/2016 9:51 AM CDT Height 162.6 cm (5' 4 ) 08/19/2016 9:51 AM CDT Body Mass Index 19.74 08/19/2016 9:51 AM CDT documented in this encounter Progress Notes * Luisa Claudio, JULIANA - 08/19/2016 10:45 AM CDT Images from the original note were not included. Patient Name: Francine Erwin : 1940 Patient Care Team: Lida Land MD as PCP - General Angie Riddle MD (Gynecology) Date of Visit: 08/19/2016 HISTORY OF PRESENT ILLNESS Francine presents for follow-up of left breast mass. She first saw us in January 2016. This was worked up with diagnostic mammogram and ultrasound. The radiologist recommended a six-month follow-up ultrasound imaging was negative. She notes no changes to the area. ROS A comprehensive review of systems was negative. HISTORY Past Medical History: Diagnosis Date ??? Hyperlipidemia Hyperlipidemia; Comments: [facility] 07/20/2013 - ??? Hypertension Hypertension; Comments: [facility] 07/20/2013 - ??? Paroxysmal atrial fibrillation (CMS/HCC) PAF - Paroxysmal atrial fibrillation; Comments: [facility] 07/20/2013 - ??? Sick sinus syndrome (CMS/HCC) SSS; Comments: [facility] 07/20/2013 - Past Surgical History: Procedure Laterality Date ??? CARDIAC PACEMAKER PLACEMENT 2011 Cardiac pacemaker ??? CARDIAC PACEMAKER PLACEMENT Cardiac pacemaker ??? INSERT / REPLACE / REMOVE PACEMAKER History Smoking Status ??? Former Smoker Cancer-related family history includes Lung cancer in her father; Skin cancer in her mother. OBJECTIVE No Known Allergies Current Outpatient Prescriptions: ??? dabigatran (PRADAXA) 150 mg capsule, take 1 capsule (150MG) by oral route 2 times every day, Disp: 180, Rfl: 3 ??? dabigatran (PRADAXA) 150 mg capsule, take 1 capsule (150MG) by oral route 2 times every day, Disp: 180, Rfl: 3 ??? diltiazem LA (CARDIZEM LA) 180 mg 24 hr tablet, take 1 tablet by oral route every day, Disp: 0,Rfl: 0 ??? meloxicam (MOBIC) 15 mg tablet, take 1 tablet by oral route every day as needed, Disp: 0, Rfl: 0 ??? metoprolol XL (TOPROL-XL) 25 mg 24 hr tablet, take 1/2 tablet (25MG) by oral route every day, Disp: , Rfl: 0 ??? multivitamin tablet tablet, take 1 by Oral route once, Disp: 0, Rfl: 0 ??? omega-3 fatty acids-vitamin E (FISH OIL) 1,000 mg capsule, take 1 by Oral route 3 times every day, Disp: 0, Rfl: 0 ??? atorvastatin (LIPITOR) 10 mg tablet, take 1 tablet by oral route every day (Patient not taking:Reported on 08/19/2016 ), Disp: 0, Rfl: 0 ??? biotin 2,500 mcg capsule, take 2 capsules daily (Patient not taking: Reported on 08/19/2016 ), Disp: 0, Rfl: 0 ??? polycarbophil (FIBER-TABS) 625 mg tablet, 625 mg. (Patient not taking: Reported on 08/19/2016 ),Disp: 0, Rfl: 0 BP 150/91 (BP Location: Right arm, Patient Position: Sitting) Pulse 77 Ht 162.6 cm (5' 4 ) Wt52.2 kg (115 lb) I have reviewed: allergies, current medications, past family history, past medical history, past social history, past surgical history and problem list. EXAM Breasts: in the left breast there is nodularity in the 3-4 o'clock position. It is asymmetrical butcertainly could be consistent with just benign breast nodularity. Strictly speaking it is indeterminate but stable. Otherwise has no suspicious masses ineither breast no skin changes in either breast no nipple changes and no adenopathy There is no evidence of supraclavicular, infraclavicular or axillary adenopathy. PROBLEM LIST Problem List Items Addressed This Visit Other Lump or mass in breast - Primary Relevant Orders US Breast Left Complete Other Visit Diagnoses None. ASSESSMENT/PLAN Francine was seen today for follow-up. Diagnoses and all orders for this visit: Lump or mass in breast - US Breast Left Complete; Future She will have imaging today. Further recommendations will be made after imaging. Likely will followfor a full year. Addendum: Imaging appears unchanged in the region of the palpable abnormality there are some ultrasound changes most consistent with dense fibrocystic changes it is amenable to a needle core biopsy however. I think that the needle core biopsy would be best to assure that there is nothing suspiciousgoing on even though by physical examination and ultrasound it has not changed in 6 months.. The patient will undergo ultrasound core needle biopsy if negative I think she can return to routine screening Herminio Shine Erwin [address] [facility] [address], [place] [address] ? [email or web address] documented in this encounter Plan of Treatment Not on file documented as of this encounter Visit Diagnoses Diagnosis Lump or mass in breast- Primary documented in this encounter Care Teams Dobie Man Relationship Specialty Start Date End Date Lida Land MD [address] [facility] [address] [place] [address] PCP - General 05/29/16 12/01/16 Angie Riddle MD [address] [place] [address] Gynecology 08/19/16 documented as of this encounter
--- OUTSIDE RECORDS SUMMARY | 2024-03-01 05:52 | XMS_ITS | Encounter Summary ---
Author Organization [facility] Care Team Providers Care Supplier Manager Name Role Phone Lida Land MD Primary Care Provider [phone] Encounter Details Date Type Department Care Team (Late st Contact Info) Description 02/19/2016 1:16 PM CHOIR ACCOMPANIST - 02/19/2016 11:59 PM CHOIR ACCOMPANIST Hospital Encounter [facility] Erwin, Kin Riojas MD [address] [facility] [facility] [address] [place] [address] Breast lump Social History Tobacco Use Types Packs/Day Years Used Date Smoking Tobacco: Former Cigarettes Q uit: 03/01/1981 Alcohol Use Standard Drinks/Week Comments No 0 (1 standard drink = 0.6 oz pur e alcohol) Comments Unknown Sex and Gender Information Value Date Recorded Sex Assigned at Not on file Legal Sex Female 9:31 AM CHOIR ACCOMPANIST Gender Identity Not on file Sexual Orientation Not on file documented as of this encounter Medications at Time of Discharge omega-3 fatty acids-vitamin E (FISH OIL) 1,000 mg capsule take 1 by Oral route 3 times every day 0 0 07/21/2013 biotin 2,500 mcg capsule take 2 capsules [...] 07/21/2013 11/12/2023 documented as of this encounter Plan of Treatment Not on file documented as of this encounter Procedures Procedure Name Priority Date/Time Associated Diagnosis Comments DIAGNOSTIC MAMMOGRAM LEFT W PUNEET Routine 02/19/2016 12:00 AM CHOIR ACCOMPANIST documented in this encounter Results * Diagnostic Mammogram Left W Puneet (02/19/2016 12:00 AM CHOIR ACCOMPANIST) Anatomical Region Laterality Modality Breast Left Mammography 02/19/2016 2:22 PM CHOIR ACCOMPANIST Narrative 02/19/2016 4:44 PM CHOIR ACCOMPANIST Diagnostic mammogram with tomosynthesis left breast. HISTORY: 75-year-old woman presenting for further evaluation of a persistent reported palpable left breast lump in the upper outer quadrant. An ML view left breast was obtained as were spot compression views in CC and MLO projection. Comparison is made to previous study 11/22/2015, 12/26/2014, 12/20/2013, 10/27/2012. ??By report patient was previously evaluated for a left breast lump with no mammographic or ultrasound abnormality identified on study 11/22/2015 at [facility]. FINDINGS: Left breast: Breast parenchyma is heterogeneously dense in a pattern not significantly changed. ??No mammographic abnormality is noted correlating to site of lump indicated by a BB in the upper outer quadrant. ??No distortion or suspicious calcifications identified. Patient has a left chest wall pacemaker. IMPRESSION: Left breast: Additional evaluation/category 0. ??There is no mammographic abnormality correlating to reported persistent lump in the left breast upper outer quadrant. ??Further ultrasound evaluation is necessary. Overall assessment: Additional evaluation. Electronically signed by: Ethan Ramirez M.D. Radiologist: ETHAN RAMIREZ MD ?? Attending: ??KIN WEBER Requesting: KIN WEBER Requesting Fax: ?? Requesting ID: [id number] Attending Fax: ?? Attending ID: ?? [id number] Completed Time: ?? 02/19/2016 2:22 PM Dictated Time: ?N/A Transcribed Time: 02/19/2016 4:44 PM Signed by: ?ETHAN RAMIREZ MD ?? on 02/19/2016 4:44 PM Report To 1 ID: Report To 1 Name: , Report To 1 FAX: Report To 2 ID: Report To 2 Name: , Report To 2 FAX: Report To 3 ID: Report To 3 Name: , Report To 3 FAX: NextGen Order #: Procedure Note Provider, MD Mikhail - 07/08/2016 Diagnostic mammogram with tomosynthesis left breast. HISTORY: 75-year-old woman presenting for further evaluation of a persistent reported palpable left breast lump in the upper outer quadrant. An ML view left breast was obtained as were spot compression views in CC and MLO projection. Comparison is made to previous study 11/22/2015, 12/26/2014, 12/20/2013, 10/27/2012. By report patient was previously evaluated for a left breast lump with no mammographic or ultrasound abnormality identified on study 11/22/2015 at [facility]. FINDINGS: Left breast: Breast parenchyma is heterogeneously dense in a pattern not significantly changed. No mammographic abnormality is noted correlating to site of lump indicated by a BB in the upper outer quadrant. No distortion or suspicious calcifications identified. Patient has a left chest wall pacemaker. IMPRESSION: Left breast: Additional evaluation/category 0. There is no mammographic abnormality correlating to reported persistent lump in the left breast upper outer quadrant. Further ultrasound evaluation is necessary. Overall assessment: Additional evaluation. Electronically signed by: Ethan Ramirez M.D. Radiologist: ETHAN RAMIREZ MD Attending: KIN WEBER Requesting: KIN WEBER Requesting Requesting ID: [id number] Attending Attending ID: [id number] Completed Time: 02/19/2016 2:22 PM Dictated Time: N/A Transcribed Time: 02/19/2016 4:44 PM Signed by: ETHAN RAMIREZ MD on 02/19/2016 4:44 PM Report To 1 ID: Report To 1 Name: , Report To 1 FAX: Report To 2 ID: Report To 2 Name: , Report To 2 FAX: Report To 3 ID: Report To 3 Name: , Report To 3 FAX: NextGen Order #: Historical Provider MD DAMON MAMMO PROCEDURES Caroline l Result documented in this encounter Visit Diagnoses Diagnosis Breast lump Lump or mass in breast documented in this encounter Care Teams Supplier Manager Relationship Specialty Start Date End Date Lida Land MD [address] [address] PCP - General 03/28/13 05/28/16 documented as of this encounter
--- OUTSIDE RECORDS SUMMARY | 2024-03-01 05:52 | XMS_ITS | Encounter Summary ---
Author Organization [facility] Healthcare Address [address] [place] [address] Care Team Providers Care Kitchen Aide Name Role Phone Lida Land MD Primary Care Provider [phone] Angie Riddle MD Unavailable [phone] Encounter Details Date Type Department Care Team (Latest Contact Info) Description 08/19/2016 10:24 AM CDT - 08/19/2016 11:59 PM CDT Hospital Encounter [facility] [phone] Kin Weber MD [address] [facility] [address] [place] [address] Discharge Disposition: Discharge to home or self care Social History Tobacco Use Types Packs/Day Years Used Date Smoking Tobacco: Former Alcohol Use Standard Drinks/Week Comments No 0 (1 standard drink = 0.6 oz pur e alcohol) Comments No Sex and Gender Information Value Date Recorded Sex Assigned at Not on file 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 Gender Identity Not on file Sexual [...] Name Priority Date/Time Associated Diagnosis Comments BREAST SONOGRAPHY Routine 08/19/2016 4:3 9 PM CDT DIAGNOSTIC MAMMOGRAM LEFT W [place] Routine 08/19/2016 12:00 AM CDT documented in this encounter Results * BREAST SONOGRAPHY (08/19/2016 4:39 PM CDT) Anatomical Region Laterality Modality Breast Ultrasound 08/19/2016 4:39 PM CDT Narrative 08/19/2016 4:39 PM CDT Left digital diagnostic mammogram with CAD and tomosynthesis, limited left breast ultrasound CLINICAL HISTORY: The patient is a 76-year-old female who presents for evaluation of a mass palpated by Dr. Weber in the left breast upper outer quadrant at approximately 2:00. ??She was previously evaluated in January 2016 with mammography and ultrasound at which time the mammographic appearance of the breast was felt to be stable and heterogeneously echodense fibroglandular tissue was noted on ultrasound without discrete mass. ??She presents for follow-up imaging. Standard three-view diagnostic examination was performed with tomosynthesis. ??Comparison examinations include 02/26/2016, 02/19/2016, 11/22/2015, 12/26/2012, 12/20/2013, 10/27/2012. The breast parenchyma is heterogeneously dense, which lowers the sensitivity of mammography in detecting disease. ??There is a nodular configuration of the parenchyma in the upper outer quadrant, unchanged from prior studies. ??A pacemaker battery pack is noted superiorly on the MLO view. ??There is no evidence of spiculated mass, architectural distortion, malignant calcification or visible lymphadenopathy. ??There is no skin thickening or nipple retraction. Ultrasound evaluation of the left upper outer quadrant was performed, with particular attention to the area marked by Dr. Weber at 2:00. There is mixed fibrofatty tissue with islands of heterogeneously echodense fibroglandular tissue throughout the upper outer quadrant, not significantly changed compared with 02/26/2016 ultrasound. ??In the 2 o'clock position where the area is more focally palpable, there is a focus of heterogeneous hypoechoic tissue with trace internal vascularity. ??A discrete reproducible solid mass is not identified. There is no architectural distortion or suspicious shadowing. IMPRESSION: Heterogeneous nodular dense fibroglandular tissue in the left breast upper outer quadrant is mammographically stable. ??There are islands of heterogeneously hypoechoic tissue within the fibrofatty and heterogeneously dense fibroglandular tissue in the upper outer quadrant by ultrasound, which is palpable at 2:00. ??The patient is unable to undergo MRI due to her pacemaker. ??In light of the persistent concerning palpable abnormality, ultrasound core biopsy of the palpable area of prominent tissue at 2:00 is recommended. BI-RADS Category 4: Suspicious finding-biopsy should be considered Results and recommendations for biopsy were discussed with the patient at the time of her visit. She was subsequent scheduled for biopsy by the nursing staff of the breast ultrasound to her Overall assessment: Suspicious Electronically signed by: Asmita Guerra M.D. Radiologist: ASMITA GUERRA MD ?? Attending: ??KIN WEBER Requesting: KIN WEBER Requesting Fax: ?? Requesting ID: [id number] Attending Fax: ?? Attending ID: ?? [id number] Completed Time: ?? 08/19/2016 11:39 AM Dictated Time: ?N/A Transcribed Time: 08/19/2016 3:27 PM Signed by: ?ASMITA GUERRA MD ?? on 08/19/2016 3:27 PM Report To 1 ID: Report To 1 Name: , Report To 1 FAX: Report To 2 ID: Report To 2 Name: , Report To 2 FAX: Report To 3 ID: Report To 3 Name: , Report To 3 FAX: NextGen Order #: Procedure Note Miscellaneous, Not In File / Provider, Mikhail, - 08/21/2016 Left digital diagnostic mammogram with CAD and tomosynthesis, limited left breast ultrasound CLINICAL HISTORY: The patient is a 76-year-old female who presents for evaluation of a mass palpated by Dr. Weber in the left breast upper outer quadrant at approximately 2:00. She was previously evaluated in January 2016 with mammography and ultrasound at which time the mammographic appearance of the breast was felt to be stable and heterogeneously echodense fibroglandular tissue was noted on ultrasound without discrete mass. She presents for follow-up imaging. Standard three-view diagnostic examination was performed with tomosynthesis. Comparison examinations include 02/26/2016, 02/19/2016, 11/22/2015, 12/26/2012, 12/20/2013, 10/27/2012. The breast parenchyma is heterogeneously dense, which lowers the sensitivity of mammography in detecting disease. There is a nodular configuration of the parenchyma in the upper outer quadrant, unchanged from prior studies. A pacemaker battery pack is noted superiorly on the MLO view. There is no evidence of spiculated mass, architectural distortion, malignant calcification or visible lymphadenopathy. There is no skin thickening or nipple retraction. Ultrasound evaluation of the left upper outer quadrant was performed, with particular attention to the area marked by Dr. Weber at 2:00. There is mixed fibrofatty tissue with islands of heterogeneously echodense fibroglandular tissue throughout the upper outer quadrant, not significantly changed compared with 02/26/2016 ultrasound. In the 2 o'clock position where the area is more focally palpable, there is a focus of heterogeneous hypoechoic tissue with trace internal vascularity. A discrete reproducible solid mass is not identified. There is no architectural distortion or suspicious shadowing. IMPRESSION: Heterogeneous nodular dense fibroglandular tissue in the left breast upper outer quadrant is mammographically stable. There are islands of heterogeneously hypoechoic tissue within the fibrofatty and heterogeneously dense fibroglandular tissue in the upper outer quadrant by ultrasound, which is palpable at 2:00. The patient is unable to undergo MRI due to her pacemaker. In light of the persistent concerning palpable abnormality, ultrasound core biopsy of the palpable area of prominent tissue at 2:00 is recommended. BI-RADS Category 4: Suspicious finding-biopsy should be considered Results and recommendations for biopsy were discussed with the patient at the time of her visit. She was subsequent scheduled for biopsy by the nursing staff of the breast ultrasound to her Overall assessment: Suspicious Electronically signed by: Asmita Guerra M.D. Radiologist: ASMITA GUERRA MD Attending: KIN WEBER Requesting: KIN WEBER Requesting Requesting ID: [id number] Attending Attending ID: [id number] Completed Time: 08/19/2016 11:39 AM Dictated Time: N/A Transcribed Time: 08/19/2016 3:27 PM Signed by: ASMITA GUERRA MD on 08/19/2016 3:27 PM Report To 1 ID: Report To 1 Name: , Report To 1 FAX: Report To 2 ID: Report To 2 Name: , Report To 2 FAX: Report To 3 ID: Report To 3 Name: , Report To 3 FAX: NextGen Order #: us Kin Weber MD IMG US PROCEDURES Final Re sult * Diagnostic Mammogram Left W [place] (08/19/2016 12:00 AM CDT) Anatomical Region Laterality Modality Breast Left Mammography 08/19/2016 4:06 PM CDT Narrative 08/19/2016 4:06 PM CDT Left digital diagnostic mammogram with CAD and tomosynthesis, limited left breast ultrasound CLINICAL HISTORY: The patient is a 76-year-old female who presents for evaluation of a mass palpated by Dr. Weber in the left breast upper outer quadrant at approximately 2:00. ??She was previously evaluated in January 2016 with mammography and ultrasound at which time the mammographic appearance of the breast was felt to be stable and heterogeneously echodense fibroglandular tissue was noted on ultrasound without discrete mass. ??She presents for follow-up imaging. Standard three-view diagnostic examination was performed with tomosynthesis. ??Comparison examinations include 02/26/2016, 02/19/2016, 11/22/2015, 12/26/2012, 12/20/2013, 10/27/2012. The breast parenchyma is heterogeneously dense, which lowers the sensitivity of mammography in detecting disease. ??There is a nodular configuration of the parenchyma in the upper outer quadrant, unchanged from prior studies. ??A pacemaker battery pack is noted superiorly on the MLO view. ??There is no evidence of spiculated mass, architectural distortion, malignant calcification or visible lymphadenopathy. ??There is no skin thickening or nipple retraction. Ultrasound evaluation of the left upper outer quadrant was performed, with particular attention to the area marked by Dr. Weber at 2:00. There is mixed fibrofatty tissue with islands of heterogeneously echodense fibroglandular tissue throughout the upper outer quadrant, not significantly changed compared with 02/26/2016 ultrasound. ??In the 2 o'clock position where the area is more focally palpable, there is a focus of heterogeneous hypoechoic tissue with trace internal vascularity. ??A discrete reproducible solid mass is not identified. There is no architectural distortion or suspicious shadowing. IMPRESSION: Heterogeneous nodular dense fibroglandular tissue in the left breast upper outer quadrant is mammographically stable. ??There are islands of heterogeneously hypoechoic tissue within the fibrofatty and heterogeneously dense fibroglandular tissue in the upper outer quadrant by ultrasound, which is palpable at 2:00. ??The patient is unable to undergo MRI due to her pacemaker. ??In light of the persistent concerning palpable abnormality, ultrasound core biopsy of the palpable area of prominent tissue at 2:00 is recommended. BI-RADS Category 4: Suspicious finding-biopsy should be considered Results and recommendations for biopsy were discussed with the patient at the time of her visit. She was subsequent scheduled for biopsy by the nursing staff of the breast ultrasound to her Overall assessment: Suspicious Electronically signed by: Asmita Guerra M.D. Radiologist: ASMITA GUERRA MD ?? Attending: ??KIN WEBER Requesting: KIN WEBER Requesting Fax: ?? Requesting ID: [id number] Attending Fax: ?? Attending ID: ?? [id number] Completed Time: ?? 08/19/2016 11:06 AM Dictated Time: ?N/A Transcribed Time: 08/19/2016 3:27 PM Signed by: ?ASMITA GUERRA MD ?? on 08/19/2016 3:27 PM Report To 1 ID: Report To 1 Name: , Report To 1 FAX: Report To 2 ID: Report To 2 Name: , Report To 2 FAX: Report To 3 ID: Report To 3 Name: , Report To 3 FAX: NextGen Order #: Procedure Note Miscellaneous, Not In File / Provider, Mikhail, - 08/19/2016 Left digital diagnostic mammogram with CAD and tomosynthesis, limited left breast ultrasound CLINICAL HISTORY: The patient is a 76-year-old female who presents for evaluation of a mass palpated by Dr. Weber in the left breast upper outer quadrant at approximately 2:00. She was previously evaluated in January 2016 with mammography and ultrasound at which time the mammographic appearance of the breast was felt to be stable and heterogeneously echodense fibroglandular tissue was noted on ultrasound without discrete mass. She presents for follow-up imaging. Standard three-view diagnostic examination was performed with tomosynthesis. Comparison examinations include 02/26/2016, 02/19/2016, 11/22/2015, 12/26/2012, 12/20/2013, 10/27/2012. The breast parenchyma is heterogeneously dense, which lowers the sensitivity of mammography in detecting disease. There is a nodular configuration of the parenchyma in the upper outer quadrant, unchanged from prior studies. A pacemaker battery pack is noted superiorly on the MLO view. There is no evidence of spiculated mass, architectural distortion, malignant calcification or visible lymphadenopathy. There is no skin thickening or nipple retraction. Ultrasound evaluation of the left upper outer quadrant was performed, with particular attention to the area marked by Dr. Weber at 2:00. There is mixed fibrofatty tissue with islands of heterogeneously echodense fibroglandular tissue throughout the upper outer quadrant, not significantly changed compared with 02/26/2016 ultrasound. In the 2 o'clock position where the area is more focally palpable, there is a focus of heterogeneous hypoechoic tissue with trace internal vascularity. A discrete reproducible solid mass is not identified. There is no architectural distortion or suspicious shadowing. IMPRESSION: Heterogeneous nodular dense fibroglandular tissue in the left breast upper outer quadrant is mammographically stable. There are islands of heterogeneously hypoechoic tissue within the fibrofatty and heterogeneously dense fibroglandular tissue in the upper outer quadrant by ultrasound, which is palpable at 2:00. The patient is unable to undergo MRI due to her pacemaker. In light of the persistent concerning palpable abnormality, ultrasound core biopsy of the palpable area of prominent tissue at 2:00 is recommended. BI-RADS Category 4: Suspicious finding-biopsy should be considered Results and recommendations for biopsy were discussed with the patient at the time of her visit. She was subsequent scheduled for biopsy by the nursing staff of the breast ultrasound to her Overall assessment: Suspicious Electronically signed by: Asmita Guerra M.D. Radiologist: ASMITA GUERRA MD Attending: KIN WEBER Requesting: KIN WEBER Requesting Requesting ID: [id number] Attending Attending ID: [id number] Completed Time: 08/19/2016 11:06 AM Dictated Time: N/A Transcribed Time: 08/19/2016 3:27 PM Signed by: ASMITA GUERRA MD on 08/19/2016 3:27 PM Report To 1 ID: Report To 1 Name: , Report To 1 FAX: Report To 2 ID: Report To 2 Name: , Report To 2 FAX: Report To 3 ID: Report To 3 Name: , Report To 3 FAX: NextGen Order #: us Kin Weber MD IMG MAMMO PROCEDURES Final Result documented in this encounter Visit Diagnoses Not on filedocumented in this encounter Care Teams Kitchen Aide Relationship Specialty Start Date End Date Lida Land MD [address] [facility] [address] [place] [address] PCP - General 05/29/16 12/01/16 Angie Riddle MD [address] [place] [address] Gynecology 08/19/16 documented as of this encounter
--- OUTSIDE RECORDS SUMMARY | 2024-03-01 05:52 | XMS_ITS | Encounter Summary ---
Author Organization [facility] Address [address] [address] Care Team Providers Care Manager Of Data Name Role Phone Lida Land MD Primary Care Provider [phone] Lida Land MD Primary Care Provider [phone] Angie Riddle MD Unavailable [phone] Hardy Morgan MD PhD Primary Care Provider + Luisa Mitchell DO Primary Care Provider [phone] Encounter Details Date Type Department Care Team (Late st Contact Info) Description 05/11/2016 Orders Only Arrhythmia Center Provider, MD Mikhail [address] [place] [id number] Social History Tobacco Use Types Packs/Day Years Used Date Smoking Tobacco: Former Cigarettes Q uit: 03/01/1981 Alcohol Use Standard Drinks/Week Comments No 0 (1 standard drink = 0.6 oz pur e alcohol) Comments Unknown Sex and Gender Information Value Date Recorded Sex Assigned at Not on file 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 us Historical Provider [facility]UEL Final Result documented in this encounter Visit Diagnoses Not on filedocumented in this encounter Care Teams Manager Of Data Relationship Specialty Start Date End Date Lida Land MD [address] [facility] [address] [place] [address] PCP - General 05/29/16 12/01/16 Lida Land MD [address] [facility] [address] [place] [address] PCP - General 03/28/13 05/28/16 Hardy Morgan MD PhD [address] [facility] [address] [place] [address] PCP - General 12/02/16 08/10/22 Luisa Mitchell DO [address] [facility] [address] [place] [address] PCP - General Internal Medicine 08/11/22 Angie Riddle MD [address] [facility] [address] [place] [address] Gynecology 08/19/16 documented as of this encounter
--- OUTSIDE RECORDS SUMMARY | 2024-03-01 05:52 | XMS_ITS | Encounter Summary ---
Author Organization [facility] Facility Care Team Providers Care Sander And Buffer Name Role Phone Unavailable Primary Care Provider Unavailabl e Encounter Details Date Type Department Care Team (Latest Contact Info) Description 11/06/2010 11:38 AM CDT - 11/08/2010 1:37 PM CDT Hospital Encounter [facility] Skinny Fitzgearld MD [address] [address] Mechanical complication of cardiac pacemaker electrode; Surgical operation with implant of artificial internal device causing abnormal patient reaction, or later complication; Unspecified place of occurrence; Atrial fibrillation (CMS/HCC) (HCC); Essential hypertension; Other and unspecified hyperlipidemia; Right bundle branch block; Asymptomatic postmenopausal status; Supraventricular premature beats Social History Tobacco Use Types Packs/Day Years Used Date Smoking Tobacco: Never Assessed Comments Unknown Sex and Gender Information Value Date Recorded Sex Assigned at Not on file 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 Gender Identity Not on file Sexual Orientation Not on file documented as of this encounter Plan of Treatment Not on file documented as of this encounter Visit Diagnoses Diagnosis Mechanical complication of cardiac pacemaker electrode Surgical operation with implant of artificial internal device causing abnormal patient reaction, or later complication Unspecified place of occurrence Atrial fibrillation (CMS/HCC) (HCC) Atrial fibrillation Essential hypertension Unspecified essential hypertension Other and unspecified hyperlipidemia Right bundle branch block Asymptomatic postmenopausal status Supraventricular premature beats documented in this encounter
--- OUTSIDE RECORDS SUMMARY | 2024-03-01 05:52 | XMS_ITS | Encounter Summary ---
Author Organization [facility] Facility Care Team Providers Care University Professor Name Role Phone Unavailable Primary Care Provider Unavailabl e Encounter Details Date Type Department Care Team (Latest Contact Info) Description 06/03/2009 9:22 AM CDT - 06/03/2009 7:30 PM CDT Hospital Encounter [facility] Pepito Munoz MD [address] [facility] [address] [place] [address] Atrial flutter (CMS/HCC) (HCC); Atrial fibrillation (CMS/HCC) (HCC); Cardiac pacemaker in situ Social History Tobacco Use Types Packs/Day Years Used Date Smoking Tobacco: Never Assessed Comments Unknown Sex and Gender Information Value Date Recorded Sex Assigned at Not on file 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
--- OUTSIDE RECORDS SUMMARY | 2024-03-01 05:52 | XMS_ITS | Encounter Summary ---
Author Organization [facility] Facility Care Team Providers Care Customer Acquisition Specialist Name Role Phone Lida Kapoor MD Primary Care Provider [phone] Encounter Details Date Type Department Care Team (Late st Contact Info) Description 02/26/2016 8:39 AM CANVAS REPAIRER - 02/26/2016 11:59 PM CANVAS REPAIRER Hospital Encounter [facility] Erwin, Kin Riojas MD [address] [facility] [address] [place] [address] Breast lump Social History Tobacco Use Types Packs/Day Years Used Date Smoking Tobacco: Former Cigarettes Q uit: 03/01/1981 Alcohol Use Standard Drinks/Week Comments No 0 (1 standard drink = 0.6 oz pur e alcohol) Comments Unknown Sex and Gender Information Value Date Recorded Sex Assigned at Not on file Legal Sex Female 9:31 AM CANVAS REPAIRER Gender Identity Not on file Sexual Orientation [...] Priority Date/Time Associated Diagnosis Comments US BREAST LIMITED Routine 02/26/2016 9:1 0 AM CANVAS REPAIRER documented in this encounter Results * US Breast Limited (02/26/2016 9:10 AM CANVAS REPAIRER) Anatomical Region Laterality Modality Breast N/A Ultrasound 02/26/2016 9:10 AM CANVAS REPAIRER Narrative 02/26/2016 4:49 PM CANVAS REPAIRER LEFT BREAST ULTRASOUND LIMITED, 02/26/2016 HISTORY: Palpable abnormality in the left breast laterally, diagnostic mammography performed 02/19/2016, but the patient could not undergo recommended ultrasound at that time, recent evaluation [facility] 11/22/2015 COMPARISONS: 10/27/2012 through 02/19/2016 mammogram studies, and ultrasound on the left 11/22/2015 Prior mammography 02/19/2016 was reviewed. ??The patient has a pacemaker in place. ??In the area of the BB, no new suspicious abnormality is seen. ??Mixed and dense fibroglandular and fatty tissue areas are seen near the BB marker, unchanged compared with the prior. There is no architectural distortion or focal mass, calcifications, or other concerning findings. ??Ultrasound was recommended for further evaluation of the mass/area of palpable concern, but could not be performed 02/19/2016. ??The patient returns for this now. Limited focused left breast sonographic evaluation and physical exam was undertaken, the patient demonstrating a general area of her symptomatic and palpable areas, but unable to pinpoint or demonstrate any focal lesion of concern. ??She reports she has intentionally lost 35 pounds by means of diet and exercise, with corresponding change in her breasts. ??There is some palpable tenderness at the left 2:00 2B area. ??There is no focal lesion of concern seen with sonography, only a mixture of heterogeneous tissue corresponding to the appearance mammographically. ??No mass, shadowing, abnormal architecture or skin thickening is seen. ??Further left breast diagnostic mammography and possible ultrasound in 6 months is recommended given the patient's tenderness, and heterogeneous tissue. Results conveyed to the patient at the time of imaging. IMPRESSION: LEFT BI-RADS CATEGORY 3: PROBABLY BENIGN ; No distinct focal lesion seen warranting biopsy that corresponds to the patient's area of tenderness and variable palpable concern. ??This appears to represent heterogeneous fibroglandular tissue. ??However, additional evaluation in 6 months is recommended with ultrasound, and possibly mammography if indicated at that time. OVERALL ASSESSMENT: PROBABLY BENIGN This report was generated using voice recognition and self correction software. ??Variances may occur. ??Please call [phone] during business hours with any concerns or questions. Electronically signed by: Brandon Nieves M.D. Radiologist: BRANDON NIEVES ?? Attending: ??KIN WEBER Requesting: KIN WEBER Requesting Fax: ?? Requesting ID: [id number] Attending Fax: ?? Attending ID: ?? [id number] Completed Time: ?? 02/26/2016 09:10 AM Dictated Time: ?N/A Transcribed Time: 02/26/2016 4:49 PM Signed by: ?BRANDON NIEVES ?? on 02/26/2016 4:49 PM Report To 1 ID: [id number] Report To 1 Name: Nathan KAPOOR Report To 1 FAX: Report To 2 ID: Report To 2 Name: , Report To 2 FAX: Report To 3 ID: Report To 3 Name: , Report To 3 FAX: NextGen Order #: [id number] Procedure Note Provider, MD Mikhail - 07/08/2016 LEFT BREAST ULTRASOUND LIMITED, 02/26/2016 HISTORY: Palpable abnormality in the left breast laterally, diagnostic mammography performed 02/19/2016, but the patient could not undergo recommended ultrasound at that time, recent evaluation [facility] 11/22/2015 COMPARISONS: 10/27/2012 through 02/19/2016 mammogram studies, and ultrasound on the left 11/22/2015 Prior mammography 02/19/2016 was reviewed. The patient has a pacemaker in place. In the area of the BB, no new suspicious abnormality is seen. Mixed and dense fibroglandular and fatty tissue areas are seen near the BB marker, unchanged compared with the prior. There is no architectural distortion or focal mass, calcifications, or other concerning findings. Ultrasound was recommended for further evaluation of the mass/area of palpable concern, but could not be performed 02/19/2016. The patient returns for this now. Limited focused left breast sonographic evaluation and physical exam was undertaken, the patient demonstrating a general area of her symptomatic and palpable areas, but unable to pinpoint or demonstrate any focal lesion of concern. She reports she has intentionally lost 35 pounds by means of diet and exercise, with corresponding change in her breasts. There is some palpable tenderness at the left 2:00 2B area. There is no focal lesion of concern seen with sonography, only a mixture of heterogeneous tissue corresponding to the appearance mammographically. No mass, shadowing, abnormal architecture or skin thickening is seen. Further left breast diagnostic mammography and possible ultrasound in 6 months is recommended given the patient's tenderness, and heterogeneous tissue. Results conveyed to the patient at the time of imaging. IMPRESSION: LEFT BI-RADS CATEGORY 3: PROBABLY BENIGN ; No distinct focal lesion seen warranting biopsy that corresponds to the patient's area of tenderness and variable palpable concern. This appears to represent heterogeneous fibroglandular tissue. However, additional evaluation in 6 months is recommended with ultrasound, and possibly mammography if indicated at that time. OVERALL ASSESSMENT: PROBABLY BENIGN This report was generated using voice recognition and self correction software. Variances may occur. Please call [phone] during business hours with any concerns or questions. Electronically signed by: Brandon Nieves M.D. Radiologist: BRANDON NIEVES Attending: KIN WEBER Requesting: KIN WEBER Requesting Requesting ID: [id number] Attending Attending ID: [id number] Completed Time: 02/26/2016 09:10 AM Dictated Time: N/A Transcribed Time: 02/26/2016 4:49 PM Signed by: BRANDON NIEVES on 02/26/2016 4:49 PM Report To 1 ID: [id number] Report To 1 Name: Nathan KAPOOR Report To 1 FAX: Report To 2 ID: Report To 2 Name: , Report To 2 FAX: Report To 3 ID: Report To 3 Name: , Report To 3 FAX: NextGen Order #: [id number] us Historical Provider MD DAMON US PROCEDURES Final R esult documented in this encounter Visit Diagnoses Diagnosis Breast lump Lump or mass in breast documented in this encounter Care Teams Customer Acquisition Specialist Relationship Specialty Start Date End Date Lida Kapoor MD [address] [facility] [address] [place] [address] PCP - General 03/28/13 05/28/16 documented as of this encounter
--- OUTSIDE RECORDS SUMMARY | 2024-03-01 05:52 | XMS_ITS | Encounter Summary ---
Author Organization [facility] Facility Care Team Providers Care Photographs Curator Name Role Phone Unavailable Primary Care Provider Unavailabl e Encounter Details Date Type Department Care Team (Latest Contact Info) Description 01/15/2009 7:42 AM COUPON CLERK - 01/15/2009 4:35 PM COUPON CLERK Hospital Encounter [facility] CL[facility] Nilton Cho MD [address] [facility] [address] [place] [address] Fitting and adjustment of cardiac pacemaker Social History Tobacco Use Types Packs/Day Years Used Date Smoking Tobacco: Never Assessed Comments Unknown Sex and Gender Information Value Date Recorded Sex Assigned at Not on file Legal Sex Female 9:31 AM COUPON CLERK Gender Identity Not on file Sexual Orientation Not on file documented as of this encounter Plan of Treatment Not on file documented as of this encounter Visit Diagnoses Diagnosis Fitting and adjustment of cardiac pacemaker documented in this encounter
--- OUTSIDE RECORDS SUMMARY | 2024-03-01 05:58 | XMS_ITS | Clinical Summary ---
Author Organization [facility] Address [address] [place] [address] Care Team Providers Care Skilled Nursing Case Manager Name Role Phone Luisa Mitchell DO Primary Care Provider [phone] Source Comments [facility],non-owned Affiliates and Associated Physician Practices is amultiple site organization consisting of ambulatory clinics and hospital sitesin [place], [place], [place] and [place]. This disclosure is being madepursuant to the Care Everywhere program and may not contain all information available regarding this patient. Last updated 17.[facility] Allergies No known active allergies Social History Tobacco Use Types Packs/Day Years Used Date Smoking Tobacco: Never Assessed Sex and Gender Information Value Date Recorded Sex Assigned at Not on file Gender Identity Not on file Sexual Orientation Not on file Plan of Treatment Health Maintenance Due Date Last Done Comments BONE DENSITY TESTING 1940 MEDICARE AWV ? 12 MONTHS 1942 DTAP/TDAP/TD VACCINES (1 - Tdap) 1961 ZOSTER VACCINE (1 of 2) 02/22/1992 PNEUMOCOCCAL VACCINE 65+ (1 of 1 - PCV) 2007 Respiratory Syncytial Virus (RSV) Vaccine Pt: or over 60 yrs (1 - 1-dose 75+ series) 2017 DEPRESSION SCREENING 03/01/2023 COVID-19 VACCINE ( - 2023-2 5 season) 2023 INFLUENZA VACCINE (#1) 2023 HEPATITIS B VACCINE Aged Out No longe r eligible based on patient's age to complete this topic HIB VACCINE Aged Out No longer eligi ble based on patient's age to complete this topic HPV VACCINE Aged Out No longer eligi ble based on patient's age to complete this topic MENINGOCOCCAL VACCINE Aged Out No janice liliam eligible based on patient's age to complete this topic Care Teams Skilled Nursing Case Manager Relationship Specialty Start Date End Date Luisa Mitchell DO [address] [facility] [address] [place] [address] PCP - General Internal Medicine 07/14/23
--- OUTSIDE RECORDS SUMMARY | 2024-03-01 05:58 | XMS_ITS | Encounter Summary ---
Author Organization [facility] Address [address] [place] [address] Care Team Providers Care Kitchen Worker Name Role Phone Nilton Cho MD Primary Care Provider Unavaila ble Encounter Details Date Type Department Care Team (Late st Contact Info) Description 02/27/2010 Abstract [facility] - [facility] [address] [facility] [address] [place] [address] Pepito Munoz MD [address] [facility] [address] [place], [place] [id number] Social History Tobacco Use Types Packs/Day Years Used Date Smoking Tobacco: Passive Smo ke Exposure - Never Smoker Alcohol Use Standard Drinks/Week Comments Yes 0 (1 standard drink = 0.6 oz pur e alcohol) she drinks occasionally Sex and Gender Information Value Date Recorded Sex Assigned at Not on file Gender Identity Not on file Sexual Orientation Not on file documented as of this encounter Plan of Treatment Not on file documented as of this encounter Visit Diagnoses Not on filedocumented in this encounter Care Teams Kitchen Worker Relationship Specialty Start Date End Date Nilton Cho MD PCP - General Interventional Cardiology 12/23/0904/02 documented as of this encounter
--- OUTSIDE RECORDS SUMMARY | 2024-03-01 05:58 | XMS_ITS | Encounter Summary ---
Author Organization [facility] Address [address] [place] [address] Care Team Providers Care Covering And Lining Supervisor Name Role Phone Unavailable Primary Care Provider Unavailabl e Reason for Visit * Reason Comments WAX IN EAR Encounter Details Date Type Department Care Team (Late st Contact Info) Description 10/10/2019 11:40 AM CDT Office Visit [facility] [address] [phone] Provider, Divina Exp [place] Bilateral impacted cerumen (Primary Dx) Social History Tobacco Use Types Packs/Day Years Used Date Smoking Tobacco: Never Assessed Sex and Gender Information Value Date Recorded Sex Assigned at Not on file Gender Identity Not on file Sexual Orientation Not on file COVID-19 Exposure Response Date Recorded In the last month, have you been in contact with someone who was confirmed or suspected to have Coronavirus / COVID-19? No / Unsure 10/09/2019 11:33 AM CDT documented as of this encounter Patient Instructions * Patient Instructions* Annabella Langley, KARON-WIRE FRAME MAKER - 10/10/2019 11:53 AM CDT Images from the original note were not included. Ear Wax ??? Avoid the use of cotton-tipped applicatory (Q-Tips) that can impact ear wax. ??? Use over the counter ear wax removal products as needed, follow package directions. ??? Ear wax is not all bad. It keeps your ears dry and helps prevent infection. The goal is to prevent wax from blocking your ears ??? Home ear wax maintenance: o Once a week or more often if needed, you may place some hydrogen peroxide into your ear canal after a shower-this may help your ear wax from accumulating o This should not be done if you have an eardrum perforation (a hole in your eardrum) or if you do not know whether or not you have a perforated eardrum Ear Wax Follow up ??? Return to clinic as needed for ear wax removal Patient Education Earwax Blockage ELEMENTARY LIBRARIAN: Earwax can build up in your ear canal and cause a blockage. Earwax blockage happens when your ear makes earwax faster than your body can remove it. Common symptoms include the following: ?? Trouble hearing ?? Earache ?? Ear fullness or a feeling that something is plugging up your ear ?? Itching or ringing in your ear ?? Dizziness Seed immediate care if: ?? You feel dizzy. ?? You have discharge or blood coming out of your ear. ?? Your ear pain does not go away or gets worse. Call your doctor if: ?? You have a fever. ?? You have trouble hearing or hear ringing noises. ?? You have questions or concerns about your condition or care. Treatment for earwax blockage: ?? Medicines placed in the ear canal can soften the earwax so it will come out. ?? Flushing your ear canal with warm water may flush out the earwax. ?? Small medical tools may be used to remove the earwax. How to prevent earwax blockage: Do not stick anything into your ears to clean them. Use cotton swabs on the outside of your ear only. Ask your healthcare provider for more information on ways to prevent blockage. Follow up with your doctor as directed: Write down your questions so you remember to ask them during your visits. ?? Copyright The [employer] 2019 Information is for End User's use only and may not be sold, redistributed or otherwise used for commercial purposes. All illustrations and images included in CareNotes?? are the copyrighted property of [employer] or [employer] The above information is an radiology aide only. It is not intended as medical advice for individual conditions or treatments. Talk to your doctor, nurse or pharmacist before following any medical regimen to see if it is safe and effective for you. documented in this encounter Progress Notes * Annabella Langley, AUTOMOBILE BODY REPAIR SUPERVISOR-WIRE FRAME MAKER - 10/10/2019 11:48 AM CDT Francine Erwin is a .79 year old.female patient, here for: Chief Complaint Patient presents with ??? WAX IN EAR HPI Patient went yesterday to have her hearing tested and was told she had ear wax buildup and needed to get that cleaned out first. Patient denies pain and fevers. OTC- None Medications reviewed. No outpatient medications have been marked as taking for the 10/10/19 encounter (Office Visit) with Provider, Divina Fitzgerald. No Known Allergies No past medical history on file. There is no problem list on file for this patient. No past surgical history on file. family history is not on file. Social History Socioeconomic History ??? Marital status: Spouse name: Not on file ??? Number of children: Not on file ??? Years of education: Not on file ??? Highest education level: Not on file Occupational History ??? Not on file Social Needs ??? Financial resource strain: Not on file ??? Food insecurity Worry: Not on file Inability: Not on file ??? Transportation needs Medical: Not on file Non-medical: Not on file Tobacco Use ??? Smoking status: Not on file Substance and Sexual Activity ??? Alcohol use: Not on file ??? Drug use: Not on file ??? Sexual activity: Not on file Lifestyle ??? Physical activity Days per week: Not on file Minutes per session: Not on file ??? Stress: Not on file Relationships ??? Social connections Talks on phone: Not on file Gets together: Not on file Attends restorationist service: Not on file Active member of club or organization: Not on file Attends meetings of clubs or organizations: Not on file Relationship status: Not on file ??? Intimate partner violence Fear of current or ex partner: Not on file Emotionally abused: Not on file Physically abused: Not on file Forced sexual activity: Not on file Other Topics Concern ??? Not on file Social History Narrative ??? Not on file Social History Tobacco Use Smoking Status Not on file Review of Systems Pertinent items are noted in HPI Ears, nose, mouth, and throat: Positive for bilateral ear wax buildup Objective: There were no vitals filed for this visit. General appearance: alert, cooperative, no distress, oriented to person, place, and time Ears: cerumen bilaterally Cerumen impaction was observed. Symptoms include plugged sensation and hearing loss from both ears. An ear irrigation was performed on Bilateral ear(s). Irrigation proved to be beneficial in clearinga large amount of cerumen. Cerumen removed with irrigation and curette. Post cerumen removal ear exam: Bilateral TM intact without erythema, bulging, or retraction. Patient tolerated procedure well. Ear canal is now visible and clear after the procedure. The procedure lasted 15 minutes. Instructions for home care to prevent wax buildup are given. Neurologic: mental status normal Assessment: Encounter Diagnoses Name Primary? Bilateral impacted cerumen Yes Plan: Ear Wax ??? Avoid the use of cotton-tipped applicatory (Q-Tips) that can impact ear wax. ??? Use over the counter ear wax removal products as needed, follow package directions. ??? Ear wax is not all bad. It keeps your ears dry and helps prevent infection. The goal is to prevent wax from blocking your ears ??? Home ear wax maintenance: o Once a week or more often if needed, you may place some hydrogen peroxide into your ear canal after a shower-this may help your ear wax from accumulating o This should not be done if you have an eardrum perforation (a hole in your eardrum) or if you do not know whether or not you have a perforated eardrum Ear Wax Follow up ??? Return to clinic as needed for ear wax removal Discussed educational materials, patient instructions, and answered all questions. Francine Erwin verbalized understanding and agrees with plan. Follow up with PCP if symptoms worsen or do not completely resolve. Annabella Langley APRN, ROLL FORGER-BC 10/10/2019 11:53 AM documented in this encounter Plan of Treatment Not on file documented as of this encounter Visit Diagnoses Diagnosis Bilateral impacted cerumen- Primary Impacted cerumen documented in this encounter
--- OUTSIDE RECORDS SUMMARY | 2024-03-01 05:58 | XMS_ITS | Encounter Summary ---
Author Organization [facility] Address [address] [facility] [place] [address] Care Team Providers Care Automobile Damage Field Appraiser Name Role Phone Luisa Mitchell Bhakti Primary Care Provider [phone] Encounter Details Date Type Department Care Team (Late st Contact Info) Description 08/20/2022 Lab Requisition [facility] - DermPath Lab [address] [facility] [address] [place] [id number] Tomy Mcmanus MD [address] [place] [address] Social History Tobacco Use Types Packs/Day Years Used Date Smoking Tobacco: Never Assessed Sex and Gender Information Value Date Recorded Sex Assigned at Not on file Gender Identity Not on file Sexual Orientation Not on file documented as of this encounter Plan of Treatment Not on file documented as of this encounter Procedures Procedure Name Priority Date/Time Associated Diagnosis Comments DERMATOPATHOLOGY Routine 08/19/2022 12:0 0 AM CDT documented in this encounter Results * DERMATOPATHOLOGY (08/19/2022 12:00 AM CDT) Case Report Dermatopathology Report ? Case: [id number] ? Authorizing Provider: ??Tomy Mcmanus MD ?Collected: ? 08/19/2022 12:00 AM ? Ordering Location: ? [facility] DermPath Lab ? Received: ?08/20/2022 11:49 AM ? Pathologist: ? Indu Lakhani MD ? Specimen: ?Skin, right mid antihelix ? 3 3:52 PM CDT DERMATOPATHOLOGY LABORATORY Final Diagnosis Specimen A. 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 The specimen consists of a shave biopsy measuring 10x9x3 mm. Jar 0. 3 3:52 PM CDT DERMATOPATHOLOGY LABORATORY Microscopic Description Specimen A. SKIN, right mid antihelix: There is an erosion overlying epidermal hyperplasia and dilated blood vessels with fibroplasia. 3 3:52 PM CDT DERMATOPATHOLOGY LABORATORY Disclaimer An external and internal positive and negative controls are appropriate for the histochemical, immunohistochemical and immunofluorescence stain(s) in this case (if any), except where stated explicitly. The performance characteristics of the stain(s) cited in this report were developed and its performance characteristic determined by the Dermatopathology Laboratory at [facility], directed by Dr. Marilin Stinson. These tests need not be, and therefore are not, approved by the [place] Food and Drug Administration. The tests are used for clinical purposes. Billing Codes Specimen Charges Stain Charges 57395 1 3 3:52 PM CDT DERMATOPATHOLOGY LABORATORY Embedded Images 3 3:52 PM CDT DERMATOPATHOLOGY LABORATORY Pathology/Cytolog y TISSUE SPECIMEN FROM SKIN / Unknown 08/19/2022 08/20/2022 11:49 AM CDT Tomy Mcmanus MD LAB - PATHOLOGY/CYTO LOGY ORDERABLES DERMATOPATHOLOGY LABORATORY [facility] - Department of Dermatology [facility] Specialized Medicine [address] [place] [address], [address] [phone] documented in this encounter Visit Diagnoses Not on filedocumented in this encounter Care Teams Automobile Damage Field Appraiser Relationship Specialty Start Date End Date Luisa Mitchell DO [address] [facility] [address] [place] [address] PCP - General Internal Medicine 07/14/23 documented as of this encounter
--- OUTSIDE RECORDS SUMMARY | 2024-03-01 05:58 | XMS_ITS | Encounter Summary ---
Author Organization [facility] Address [facility] [place] [address] Care Team Providers Care International Organizer Name Role Phone Unavailable Primary Care Provider Unavailabl e Encounter Details Date Type Department Care Team (Latest Contact Info) Description 10/09/2019 Travel Social History Tobacco Use Types Packs/Day Years [...] AM CDT documented as of this encounter Plan of Treatment Not on file documented as of this encounter Visit Diagnoses Not on filedocumented in this encounter
--- OUTSIDE RECORDS SUMMARY | 2024-03-01 05:58 | XMS_ITS | Encounter Summary ---
Author Organization [facility] Address [address] [place] [address] Care Team Providers Care Elementary [employer] Tutor Name Role Phone Unavailable Primary Care Provider Unavailabl e Encounter Details Date Type Department Care Team (Late st Contact Info) Description 05/23/2020 Orders Only [facility] - COVID [address] [place] [address] Mansoor Matamoros MD [address] [facility] [address] [place] [address] Need for vaccination Social History Tobacco Use Types Packs/Day Years Used Date Smoking Tobacco: Never Assessed Sex and Gender Information Value Date Recorded Sex Assigned at Not on file Gender Identity Not on file Sexual Orientation Not on file documented as of this encounter Plan of Treatment Not on file documented as of this encounter Visit Diagnoses Diagnosis Need for vaccination Need for prophylactic vaccination and inoculation against unspecified single disease documented in this encounter
--- OUTSIDE RECORDS SUMMARY | 2024-03-01 05:58 | XMS_ITS | Encounter Summary ---
Author Organization [facility] Address [address] [place] [address] Care Team Providers Care District Medical Examiner Name Role Phone Nathan Land MD Primary Care Provider [phone] Reason for Visit * Reason Comments Pacemaker Check Encounter Details Date Type Department Care Team (Late st Contact Info) Description 10/24/2010 2:30 PM CDT Office Visit [facility] Heart and Vascular - [facility] [address] [place] [address] Sinoatrial node dysfunction; Fitting and adjustment of cardiac pacemaker Social [...] as of this encounter Progress Notes * Monalisa Watson - 10/27/2010 10:11 AM CDT See procedure note documented in this encounter Procedure Notes * Monalisa Watson - 10/27/2010 10:14 AM CDTAssociated Order(s): PACER INTERROGATION DEVICE EVAL IN PERSON Procedure(s): MT INTERROG DEV EVAL PM/LDLS PM PHYS/QHP IN PERSON Pre-Procedure Diagnose(s): Sinoatrial node dysfunction; Fitting and adjustment of cardiac pacemaker Pacemaker Evaluation Report 10/27/2010 PCP: Nathan Lnad MD Intelligence Agent: Nilton Cho MD Indication for device: Encounter Diagnoses 1. Sinoatrial node dysfunction (427.81) PACER INTERROGATION DEVICE EVAL IN PERSON 2. Fitting and adjustment of cardiac pacemaker (V53.31) PACER INTERROGATION DEVICE EVAL IN PERSON Reason For Evaluation: requested Wine Steward/Stewardess: Biotronik Model: Cyclos Implant Date: 01/15/2009 SUMMARY: Device function as programmed. Interrogation only to assess AF burden per request of Dr. Munoz. AF burden - 10%. Patient is on pradaxa. PARAMETERS: Mode: DDD-CLS LRL: 60 ppm MEASUREMENTS P Wave Measurement: N/A R Wave Measurement: N/A Capture Threshold: Atrial: N/A Ventricular: N/A Lead Impedance: Atrial: 646 ohms Ventricular: <150 ohms DIAGNOSTIC DATA Paced: Atrial: 86 % Ventricular: 53 % Battery status: 2.73 V 900 ohms documented in this encounter Plan of Treatment Not on file documented as of this encounter Results * PACER INTERROGATION DEVICE EVAL IN PERSON (10/29/2010 2:38 PM CDT) Pepito Munoz MD [facility] documented in this encounter Visit Diagnoses Diagnosis Sinoatrial node dysfunction Fitting and adjustment of cardiac pacemaker documented in this encounter Care Teams District Medical Examiner Relationship Specialty Start Date End Date Nathan Land MD [address] [place] [address] PCP - General Internal Medicine 04/24/10 documented as of this encounter
--- OUTSIDE RECORDS SUMMARY | 2024-03-01 05:58 | XMS_ITS | Encounter Summary ---
Author Organization [facility] Address [address] [place] [address] Care Team Providers Care Hoop Riveting Machine Operator Helper Name Role Phone Nilton Cho MD Primary Care Provider Unavaila ble Encounter Details Date Type Department Care Team (Late st Contact Info) Description 02/24/2010 Abstract [facility] Heart and Vascular - [facility] [address] [facility] [address] [place] [address] Pepito Munoz MD [address] [place], [place] [id number] Social History Tobacco Use Types Packs/Day Years [...] on filedocumented in this encounter Care Teams Hoop Riveting Machine Operator Helper Relationship Specialty Start Date End Date Nilton Cho MD PCP - General Interventional Cardiology 12/23/0904/02 documented as of this encounter
--- OUTSIDE RECORDS SUMMARY | 2024-03-01 05:58 | XMS_ITS | Clinical Summary ---
Author Organization [facility] Address [address] [place] [address] Phone Care Team Providers Care Cooker Mechanic Name Role Phone Nathan Land MD Primary Care Provider [phone] Allergies No known active allergies Medications Medication Sig Dispensed Refills Start Date End Date Status lisinopril (PRINIVIL) 5 mg Oral tablet daily. Active atorvastatin (LIPITOR) 20 mg Oral tablet daily. Active diltiazem SR 24 hour (TIAZAC) 180 mg Oral capsule daily. Active metoprolol tartrate (LOPRESSOR) 25 mg Oral tablet Take 12.5 mg by mouth 2 times daily. Active dabigatran etexilate (PRADAXA) 150 mg Oral Cap Take 1 Cap by mouth 2 times daily. 60 Cap 6 10/24/2010 Active Active Problems Problem Noted Date Diagnosed Date Cardiac pacemaker in situ 02/13/2011 Overview (02/13/2011): Biotronik Pacemaker (Dual) Melissa COBOS SN: [id number] 12/23/2009 Overview (12/23/2009): status post pacemaker of a Biotronik dual chamber pacemaker Atrial fibrillation Atrial flutter Hypertension Hypercholesterolemia Family History Medical History Relation Name Comments Lung Cancer Father Other Mother from unknown ca uses Relation Name Status Comments Father (Age 72) Mother (Age 65) from unkno wn causes Social History Tobacco Use Types Packs/Day Years [...] Sign Reading Time Taken Comments Blood Pressure 115/70 10/24/2010 1:50 PM CDT Pulse 65 10/24/2010 1:50 PM CDT Temperature - - Respiratory Rate 10 10/24/2010 1:50 PM CDT Oxygen Saturation - - Inhaled Oxygen Concentration - - Weight 56.2 kg (124 lb) 10/24/2010 1:50 PM CDT Height 160 cm (5' 3 ) 10/24/2010 1:50 PM CDT Body Mass Index 21.97 10/24/2010 1:50 PM CDT Plan of Treatment Health Maintenance Due Date Last Done Comments DTAP/TDAP/TD VACCINES (1 - Tdap) 1961 ZOSTER VACCINE (1 of 2) 02/22/1992 OSTEOPOROSIS SCREENING 2007 PNEUMOCOCCAL VACCINE 65+ YEARS (1 of 1 - PCV) 02/22/20 07 RSV VACCINE (60+ or ) (1 - 1-dose 75+ series) 2017 INFLUENZA VACCINE (#1) 2023 Care Teams Cooker Mechanic Relationship Specialty Start Date End Date Nathan Land MD [address] [facility] [address] [place] [address] PCP - General Internal Medicine 04/24/10
--- OUTSIDE RECORDS SUMMARY | 2024-03-01 05:58 | XMS_ITS | Referral Summary ---
Author Organization [facility] Address [address] [place] [address] Care Team Providers Care Upper Stitcher Name Role Phone Luisa Mitchell DO Primary Care Provider [phone] Source Comments [facility],non-owned Affiliates and Associated Physician Practices is amultiple site organization consisting of ambulatory clinics and hospital sitesin [place], [place], [place] and [place]. This disclosure is being madepursuant to the Care Everywhere program and may not contain all information available regarding this patient. Last updated 17.[facility] [employer] Allergies No known active allergies Social History Tobacco Use Types Packs/Day Years Used Date Smoking Tobacco: Never Assessed Sex and Gender Information Value Date Recorded Sex Assigned at Not on file Gender Identity Not on file Sexual Orientation Not on file Plan of Treatment Not on file Care Teams Upper Stitcher Relationship Specialty Start Date End Date Luisa Mitchell DO [address] [facility] [address] [place] [address] PCP - General Internal Medicine 07/14/23
--- OUTSIDE RECORDS SUMMARY | 2024-03-01 05:58 | XMS_ITS | Encounter Summary ---
Author Organization [facility] Address [address] [place] [address] Care Team Providers Care Digital Advertising Specialist Name Role Phone Nathan Land MD Primary Care Provider [phone] Encounter Details Date Type Department Care Team (Late st Contact Info) Description 10/17/2010 Abstract [facility] Heart and Vascular - [facility] [address] [facility] [address] [place] [address] Pepito Munoz MD [address] [place], [place] [id number] Social History Tobacco Use Types Packs/Day Years [...] on filedocumented in this encounter Care Teams Digital Advertising Specialist Relationship Specialty Start Date End Date Nathan Land MD [address] [place] [address] PCP - General Internal Medicine 04/24/10 documented as of this encounter
--- OUTSIDE RECORDS SUMMARY | 2024-03-01 05:58 | XMS_ITS | Encounter Summary ---
Author Organization [facility] Address [facility] [facility] [place] [address] Care Team Providers Care Field Crop Farmer Name Role Phone Unavailable Primary Care Provider Unavailabl e Encounter Details Date Type Department Care Team (Latest Contact Info) Description 10/10/2019 Travel Social History Tobacco Use Types Packs/Day [...]
--- OUTSIDE RECORDS SUMMARY | 2024-03-01 05:58 | XMS_ITS | Encounter Summary ---
Author Organization [facility] Address [address] [place] [address] Care Team Providers Care Manager Reporting Name Role Phone Nathan Land MD Primary Care Provider [phone] Reason for Visit * Reason Comments Follow Up Encounter Details Date Type Department Care Team (Late st Contact Info) Description 04/25/2010 12:00 PM RESIDENTIAL INSURANCE INSPECTOR Office Visit [facility] Heart and Vascular - [facility] [address] [facility] [address] [place] [address] Pepito Munoz MD [address] [facility] [address] [place], [place] [id number] Atrial fibrillation; Atrial flutter Social History Tobacco Use Types Packs/Day Years [...] Sign Reading Time Taken Comments Blood Pressure 120/70 04/25/2010 12:18 PM RESIDENTIAL INSURANCE INSPECTOR Pulse 60 04/25/2010 12:18 PM RESIDENTIAL INSURANCE INSPECTOR Temperature - - Respiratory Rate 10 04/25/2010 12:18 PM RESIDENTIAL INSURANCE INSPECTOR Oxygen Saturation - - Inhaled Oxygen Concentration - - Weight 56.2 kg (124 lb) 04/25/2010 12:18 PM RESIDENTIAL INSURANCE INSPECTOR Height 160 cm (5' 3 ) 04/25/2010 12:18 PM RESIDENTIAL INSURANCE INSPECTOR Body Mass Index 21.97 04/25/2010 12:18 PM RESIDENTIAL INSURANCE INSPECTOR documented in this encounter Progress Notes * Pepito Munoz MD - 04/25/2010 12:53 PM CSTAddended by: PEPITO MUNOZ on: 04/25/2010 Modules accepted: Medications DENTIAL INSURANCE INSPECTOR * Pepito Munoz MD - 04/25/2010 12:32 PM CST Janette Munoz M.D. Physician Progress Notes 04/25/2010 Electrophysiology Progress Note Name: Francine Erwin : 1940 CSN: [id number] ? Subjective:?? Patient has no new complaints. The patient does complain of occasion LH. No CP. No SOB. No COLBY. No syncope. The patient walks 6 miles /day 2 to 3 times per week as well as roger. Objective:?? PE: BP 120/70 Pulse 60 Resp 10 Ht 5' 3 (1.6 m) Wt 124 lb (56.246 kg) BMI 21.97 kg/m2 Filed Vitals: 04/25/2010 12:18 PM BP: 120/70 Pulse: 60 Resp: 10 Height: 5' 3 (1.6 m) Weight: 124 lb (56.246 kg) Gen: A+Ox3 HEENT: OP clear, No LAD, No carotid bruits, no thyromegaly Heart: RRR S1 and S2 Lungs: CTA Abdomen: +BS/NT/ND/ no masses appreciated Extremities: No C/C/E Skin: No rashes Neuro: Grossly non-focal CHADS2 score 2.8%/year of TE ? Assessment:?? 1. PAF (asymptomatic) - 1 episode 2.5 hour since January 2. Atrial flutter s/p RF 06/03/09 3. HTN 4. SSS/ Pacemaker ? Plan:?? 1. Decrease Metoprolol 12.5 mg po BID to due to dizzyness 2. I had a long discussion with the patient. We discussed the patients risk of thromboembolic eventbased on a CHADS 2 score of 1. This corresponds to a 2.8 % risk per year of thromboembolic event. Aspirin conveys a 22% relative risk reductio compared to 70% for Coumadin. Based on the 2006 ACC Guidelines for the treatment of atrial fibrillation, I would recommend either drug with eye toward Coumadin. The patient has chosen ASA for now but is open to readdressing in the future. 3. Continue all other drugs 4. Re-evaluate AF burden in 6 months Pepito Munoz MD DENTIAL INSURANCE INSPECTOR documented in this encounter Plan of Treatment Not on file documented as of this encounter Visit Diagnoses Diagnosis Atrial fibrillation Atrial flutter documented in this encounter Care Teams Manager Reporting Relationship Specialty Start Date End Date Nathan Land MD [address] [address] PCP - General Internal Medicine 04/24/10 documented as of this encounter
--- OUTSIDE RECORDS SUMMARY | 2024-03-01 05:58 | XMS_ITS | Encounter Summary ---
Author Organization [facility] Address [address] [place] [address] Care Team Providers Care Research Nurse Name Role Phone Nathan Land MD Primary Care Provider [phone] Reason for Visit * Reason Comments Follow Up Encounter Details Date Type Department Care Team (Late st Contact Info) Description 10/24/2010 2:00 PM CDT Office Visit [facility] Heart and Vascular - [facility] [address] [facility] [address] [place] [address] Pepito Munoz MD [address] [place] [address] Atrial fibrillation; Atrial flutter Social History Tobacco [...] Mass Index 21.97 10/24/2010 1:50 PM CDT documented in this encounter Progress Notes * Pepito Munoz MD - 10/24/2010 2:00 PM CDT Janette Munoz M.D. Physician Progress Notes 10/24/2010 Electrophysiology Progress Note Name: Francine Erwin : 1940 CSN: [id number] ? Subjective:?? Patient has no new complaints. The patient does complain of occasion LH. No CP. No SOB. No COLBY. No syncope. The patient continues to participate [employer] and [employer]. Objective:?? PE: BP 115/70 Pulse 65 Resp 10 Ht 5' 3 (1.6 m) Wt 124 lb (56.246 kg) BMI 21.97 kg/m2 Filed Vitals: 10/24/10 1350 Height: 5' 3 (1.6 m) Weight: 124 lb (56.246 kg) Gen: A+Ox3 HEENT: OP clear, No LAD, No carotid bruits, no thyromegaly Heart: RRR S1 and S2 Lungs: CTA Abdomen: +BS/NT/ND/ no masses appreciated Extremities: No C/C/E Skin: No rashes Neuro: Grossly non-focal CHADS2 score 2.8%/year of TE ? Assessment:?? 1. PAF (asymptomatic) - Multiple mode switch events likely AF 2. Atrial flutter s/p RF 06/03/09 3. HTN 4. SSS/ Pacemaker ? Plan:?? 1. Continue Metoprolol 12.5 mg po BID 2. I had a long discussion with the patient. We discussed the patients risk of thromboembolic eventbased on a CHADS 2 score of 1. This corresponds to a 2.8 % risk per year of thromboembolic event. Aspirin conveys a 22% relative risk reductio compared to 70% for Coumadin and an additional 1.2% absolute risk reduction for Pradaxa compared to coumadin. Based on the 2006 ACC Guidelines for the treatment of atrial fibrillation, I would recommend either drug with eye toward Coumadin/Pradaxa. The patient has chosen Pradaxa. 3. Continue all other drugs 4. Re-evaluate AF burden in 6 months Pepito Munoz MD documented in this encounter Plan of Treatment Not on file documented as of this encounter Visit Diagnoses Diagnosis Atrial fibrillation Atrial flutter documented in this encounter Care Teams Research Nurse Relationship Specialty Start Date End Date Nathan Land MD [address] [facility] [address] [place] [address] PCP - General Internal Medicine 04/24/10 documented as of this encounter
--- OUTSIDE RECORDS SUMMARY | 2024-03-01 05:58 | XMS_ITS | Encounter Summary ---
Author Organization [facility] Address [address] [place], [place] [address] [address] Care Team Providers Care Area Sales Manager Name Role Phone Luisa Mitchell DO Primary Care Provider [phone] Encounter Details Date Type Department Care Team (Latest Contact Info) Description 07/14/2023 Travel Social History Tobacco Use Types Packs/Day Years Used Date Smoking Tobacco: Never Assessed Sex and Gender Information Value Date Recorded Sex Assigned at Not on file Gender Identity Not on file Sexual Orientation Not on file documented as of this encounter Plan of Treatment Not on file documented as of this encounter Visit Diagnoses Not on filedocumented in this encounter Care Teams Area Sales Manager Relationship Specialty Start Date End Date Luisa Mitchell DO [address] [facility] [address] [place] [address] PCP - General Internal Medicine 07/14/23 documented as of this encounter
--- OUTSIDE RECORDS SUMMARY | 2024-03-01 05:58 | XMS_ITS | Patient Health Summary ---
Author Organization [facility] Address [address] [place] [address] Care Team Providers Care Preform Machine Operator Name Role Phone Luisa Mitchell DO Primary Care Provider [phone] Note from [facility],non-owned Affiliates and Associated Physician Practices is amultiple site organization consisting of ambulatory clinics and hospital sitesin [place], [place], [place] and [place]. This disclosure is being madepursuant to the Care Everywhere program and may not contain all information available regarding this patient. Last updated 17.[facility] [employer] Allergies No known active allergies Social History Tobacco Use Types Packs/Day Years Used Date Smoking Tobacco: Never Assessed Sex and Gender Information Value Date Recorded Sex Assigned at Not on file Gender Identity Not on file Sexual Orientation Not on file Procedures * DERMATOPATHOLOGY(Performed 08/19/2022) Results * DERMATOPATHOLOGY (08/19/2022 12:00 AM CDT) Case Report Dermatopathology Report ? Case: [id number] ? Authorizing Provider: ??Tomy Mcmanus MD ?Collected: ? 08/19/2022 12:00 AM ? Ordering Location: ? [facility] ? Received: ?08/20/2022 11:49 AM [...] characteristic determined by the Dermatopathology Laboratory at [facility], directed by Dr. Marilin Stinson. These tests need not be, and therefore are not, approved by the [place] Food and Drug Administration. The tests are used for clinical purposes. Billing Codes Specimen Charges Stain Charges 68312 1 3 3:52 PM CDT DERMATOPATHOLOGY LABORATORY Embedded Images 3:52 PM CDT DERMATOPATHOLOGY LABORATORY Pathology/Cytolog y TISSUE SPECIMEN FROM SKIN / Unknown 08/19/2022 08/20/2022 11:49 AM CDT Tomy Mcmanus MD LAB - PATHOLOGY/CYTO LOGY ORDERABLES DERMATOPATHOLOGY LABORATORY [facility] - Department of Dermatology [facility] Specialized Medicine [address] [place] [address], [address] [phone] Care Teams Preform Machine Operator Relationship Specialty Start Date End Date Luisa Mitchell DO [address] [facility] [address] [place] [address] PCP - General Internal Medicine 07/14/23
--- OUTSIDE RECORDS SUMMARY | 2024-03-01 05:58 | XMS_ITS | Encounter Summary ---
Author Organization [facility] Address [address] [place] [address] Care Team Providers Care Clinical Psychologist Private Practice Name Role Phone Nilton Cho MD Primary Care Provider Raymonda ble Encounter Details Date Type Department Care Team (Latest Contact Info) Description 12/23/2009 Abstract [facility] ABSTRACTION Provider, Abstract NO ADDRESS ON FILE Social History Tobacco Use Types Packs/Day Years [...] as of this encounter Progress Notes * Cecilio Cheatham - 12/23/2009 2:35 PM CDT PATIENT NAME: FRANCINE CONNOR DATE: 05-15-09 REQUESTING PHYSICIAN: Dr. Cho : 42 REASON FOR VISIT: I was asked to see this patient by Dr. Nilton Cho. HISTORY AND PRESENT ILLNESS: Ms. Francine Connor is a very pleasant 69 year old female with a history of pacemaker in situ placedfor sick sinus syndrome approximately six years ago. In December of this year, the patient was discovered to have atrial fibrillation per her account. She was subsequently referred here for possible further treatment. She has been on Multaq with limited success. The patient states that she has palpitations and that is her only symptom. She is only limited in terms of the palpitations, however, and does not feel shortness of breath, dyspnea on exertion and she denies any chest pain, lower extremity edema. She is quite active and able to continue with vigorous activity walking six miles at a time three times per week and performing aerobics daily. PAST MEDICAL HISTORY: 1. Atrial fibrillation. 2. Atrial flutter. 3. Sick sinus syndrome status post pacemaker of a Biotronik dual chamber pacemaker. 4. Hypertension. 5. Hypercholesterolemia. ALLERGIES TO MEDICATIONS: None known. CURRENT MEDICATIONS: 1. Lisinopril 5 mg PO QD. 2. Lipitor 20 mg PO QD. 3. Diltiazem 180 mg PO QD. 4. Multaq 400 mg PO BID. 5. Metoprolol unknown amount. 6. Coumadin unknown amount. FAMILY HISTORY: Her father at 72 from lung cancer, mother at 65 from unknown causes. SOCIAL HISTORY: The patient is . She has a remote smoking history. She only drinks occasionally. 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 REVIEW OF SYSTEMS: A ten point review of systems is otherwise negative except for what was stated in the history and present illness. Francine Connor 05/15/09 Page Two PHYSICAL EXAMINATION: Physical examination at the time of evaluation: The patient is alert and oriented times three and in no apparent distress. Her blood pressure was 128/74. Respiratory rate was 10 and heart rate was approximately 70/minute. Pupils are equal and round. Sclerae were nonicteric. Oral pharynx is clear without lesions. Neck was supple without JVD, lymphadenopathy. Carotids are plus two without bruits. Cardiac exam shows regular rate and rhythm, normal S1 and S2. Lungs were clear to auscultation bilaterally. Abdomen was soft, nontender and nondistended with normal active bowel sounds. DATA: ECG from 01-15-09 showed V-pacing with retrograde atrial activation. IMPRESSION: 1. Paroxysmal atrial fibrillation versus atrial flutter 40-60% of the time. 2. Sick sinus syndrome status post pacemaker placement. 3. Hypertension. RECOMMENDATIONS: At the time of the patient???s initial visit, we had not obtained all of her records from the patient???s client support manager. However, I have obtained those since seeing the patient and this dictation. Thepatient clearly has a predominance of atrial flutter according to all reports. The patient also likely has atrial fibrillation. However, documentation of this is more difficult to obtain. I had a long discussion with the patient concerning atrial fibrillation ablation which I believe the patient would be a candidate for should she deem her symptoms significant enough. However, without further documentation of whether there is a predominance of atrial fibrillation or atrial flutter, my bias is to approach this in a more stepwise fashion. Initially I discussed with the patient atrial fibrillation ablation and the indications for this. The patient does have symptoms. However, these symptoms are not terribly severe and I would be hesitant to pursue this without the patient???s vocalization ofmore significant symptoms first. I did discuss at length with the patient the risks, benefits and alternatives to atrial fibrillation ablation. The risks include but are not limited to the followin% risk of a life-threatening complication including esophageal injury/fistula formation, CVA, cardiac perforation, pulmonary vein stenosis. The chance of success for paroxysmal atrial fibrillation is approximately 66% at nine months with a first ablation after failed anti- arrhythmic therapy. Approximately one in four patients requires a second procedure in order to achieve 75-80% success. This compares to approximately 16% chance of a success with a changed anti-arrhythmic drug agent. In termsof the patient???s atrial flutter, this is clearly also a likely problem. I would be more eager to pursue an atrial flutter ablation at first to see whether or not this is the patient???s predominantissue. If it is, then the patient should have significant decrease in the amount of potential arrhythmias. Should she continue to have atrial fibrillation, then that issue could be dealt with separately in the future. I gave the patient a two-page Francine Connor 05/15/09 Page Three summary concerning atrial fibrillation ablation. I will also be calling the patient to alert her tothe new information that we have obtained in order to make a decision concerning atrial flutter ablation. She also has been scheduled for a three month visit in order to readdress all of these issuesagain after digesting so much information provided to her. We look forward to helping her in any way possible. Thank you very much for allowing us to participate in the care of this patient. Should there be anyquestions, please do not hesitate to call. Janette Munoz M.D., F.A.CJamal. NIESHA/gretta cc: Nilton Cho M.D., Mir Land M.D. documented in this encounter Plan of Treatment Not on file documented as of this encounter Visit Diagnoses Diagnosis Sinoatrial node dysfunction documented in this encounter Care Teams Clinical Psychologist Private Practice Relationship Specialty Start Date End Date Nilton Cho MD PCP - General Interventional Cardiology 12/23/0904/02 documented as of this encounter
--- OUTSIDE RECORDS SUMMARY | 2024-03-01 05:59 | XMS_ITS | Continuity of Care Document ---
Author Organization [facility] Address [address] [place] [address] [address] [place] [address] Phone Care Team Providers Care Rn Patient Services Name Role Phone Herron OD, Jones Unavailable Unavailable Advance Directives Directive Yes / No Effective Date File Name No Information Encounters Encounter Description Practice Location Reason(s) For Visit Diagnoses Date Provider Providers Copied on Encounter [facility], [address], [place], [place], [id number], [place] tel:[phone] [facility] No Information Cleve[address] 7[address] 0 Herron OD Jones. [address] , [address], [place], [address], [place]. tel:[phone] Family History Family Member Type Diagnosis Age At Onset No Information Payers Payer name Insurance type Covered alliance party ID Authoriza tion(s) No Information Social History Type Description Quantity Date Captured Comments Sex Female Smoking Status No Information Chief Complaint And Reason For Visit No Information Reason For Referral Reason For Referral No Information History Of Present Illness Encounter Date Complaint History Of Prese nt Illness No Information Functional Status Date Functional Assessmen t No Information Instructions Date Instruction Additional Infor mation No Information Assessments Type Assessment Date No Information Patient Care Teams Name Effective Dates (start - stop) Status Members No Information
--- OUTSIDE RECORDS SUMMARY | 2024-03-01 06:10 | XMS_ITS | Continuity of Care Document ---
Author Organization [facility] Address [address] [place] [address] [address] [place] [address] Phone Care Team Providers Care Display Designer Outside Name Role Phone Herron OD, Jones Unavailable Unavailable Advance Directives Directive Yes / No Effective Date File Name No Information Encounters Encounter Description Practice Location Reason(s) For Visit Diagnoses Date Provider Providers Copied on Encounter [facility], [address] [place], [place], [id number], [place] tel:[phone] [facility] No Information [address] Herron OD Jones. [address] , [address], [place], [address], [place]. tel:[phone] Family History Family Member Type Diagnosis Age At Onset No Information Payers Payer name Insurance type Covered democrat ID Authoriza tion(s) No Information Social History [...]
--- OUTSIDE RECORDS SUMMARY | 2024-03-01 06:11 | XMS_ITS | Encounter Summary ---
Author Organization [facility] Address [address] [place] [address] Care Team Providers Care Chest Painting And Sealing Supervisor Name Role Phone Angie Riddle MD Unavailable [phone] Luisa Mitchell DO Primary Care Provider [phone] Encounter Details Date Type Department Care Team (Late st Contact Info) Description 01/03/2024 Telephone [facility] Cardiology [address] [facility] [address] [place] [address] Yoni Matamoros MD [address] [facility] [address] [place] [address] Social History Tobacco Use Types [...] on file Legal Sex Female 9:31 AM HEARING SCREEN 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 He confirmed fax and is processing Pradaxa for pt. Mr. Erwin called and informed. ING SCREEN COORDINATOR * Telephone Encounter - Analisa Sheets MA - 01/06/2024 2:34 PM HEARING SCREEN COORDINATOR Signed, faxed and scanned. ING SCREEN COORDINATOR * Telephone Encounter - Shakira Iyer - 01/06/2024 1:12 PM CST Could please have Dr. Matamoros sign this script for pradaxa today and fax to [facility] at [phone] please. ING SCREEN COORDINATOR * Telephone Encounter - Shakira Iyer - 01/03/2024 1:33 PM CST [facility] states script for Pradaxa not received. Given date and faxed confirmation to fax number. Pt gave [phone]. I resent script to this fax number. ING SCREEN COORDINATOR documented in this encounter Plan of Treatment Not on file documented as of this encounter Visit Diagnoses Not on filedocumented in this encounter Care Teams Chest Painting And Sealing Supervisor Relationship Specialty Start Date End Date Luisa Mitchell DO [address] [place] [address] PCP - General Internal Medicine 08/11/22 Angie Riddle MD [address] [place] [address] Gynecology 08/19/16 documented as of this encounter
--- OUTSIDE RECORDS SUMMARY | 2024-03-01 06:11 | XMS_ITS | Referral Summary ---
Author Organization [facility] Address [address] [place] [address] Care Team Providers Care Pressure Tester Operator Name Role Phone Angie Riddle MD Unavailable [phone] Luisa Mitchell DO Primary Care Provider [phone] Encounters Date Type Department Care Team Description 01/14/2024 Telephone [facility] Medical [facility] Cardiology [address] [facility] [address], [place] [address] Yoni Matamoros MD Med Management 01/03/2024 Telephone [facility] Cardiology [address] [place] [address], [place] [address] Yoni Matamoros MD 12/06/2023 1:00 PM CDT Ancillary Procedure Arrhythmia Center [address] [facility] [address], [place] [address] Cardiac pacemaker in situ (Primary [...] sinus syndrome) (CMS/HCC) 11/08/2023 Paroxysmal atrial fibrillation ([facility]) 017 Overview (09/07/2016): On chronic AC. Assessment [...] Chronic A lead [facility] 09-13-03. [facility]. 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 Gender Identity Not on file Sexual [...] on file Medical Devices Implanted Type Area Fire Control Assistant Device Identifier Shelf Expiration Date Model / Serial / Lot Medtronic Inc Kylah S Mri Surescan 50.8x46.6mm 2 Chamber 7.4mm Pacemaker 22.5gm [id number] - [id number] - [id number] Implanted:Qty: 1 on 11/15/2023 by Arnold Stout III, MD at [facility] Pacemaker Medtronic Inc 01/26/2025 [id number] / [id number] / Explanted Type Area Fire Control Assistant Device Identifier Shelf Expiration Date Model / Serial / Lot Pacemaker-2010 Implanted:10/2010 by Skinny Fitzgerald MD (Quantity not on file) Explanted:Qty: 1 on 11/15/2023 by Arnold Stout III, MD at [facility] Pacemaker Left: Chest Medtronic sick sinus syndrome ADAPTA / [id number] / Description:Medtronic Adapta DDD pacemaker on 11/07/2010 [...] to SARMAD Episodes last 90 days/Comments: AF [place] 34 %, there were 28 episodes of [...] Result from Last 3 Months Insurance MEDICARE [employer] [place] [employer]ICARE [employer] Care Teams Pressure Tester Operator Relationship Specialty Start Date End Date Luisa Mitchell DO [address] [place], [place] [id number] PCP - General Internal Medicine 08/11/22 Angie Riddle MD [address] [place] [address] Gynecology 08/19/16
--- OUTSIDE RECORDS SUMMARY | 2024-03-01 06:11 | XMS_ITS | Encounter Summary ---
Author Organization [facility] Address [address] [place] [address] Care Team Providers Care Consulting Services Project Manager Name Role Phone Angie Riddle MD Unavailable [phone] Luisa Mitchell DO Primary Care Provider [phone] Reason for Visit * Reason Onset Date Comments Med Management 01/14/2024 Encounter Details Date Type Department Care Team (Late st Contact Info) Description 01/14/2024 Telephone [facility] Cardiology [address] [facility] [address] [place] [address] Yoni Matamoros MD [address] [facility] [address] [place] [address] Med Management Social History Tobacco [...] on file Legal Sex Female 9:31 AM 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 Was instructed to call to see if ok for her to take with her cardiac condition. BALLER documented in this encounter Plan of Treatment Not on file documented as of this encounter Visit Diagnoses Not on filedocumented in this encounter Care Teams Consulting Services Project Manager Relationship Specialty Start Date End Date Luisa Mitchell DO [address] [place] [address] PCP - General Internal Medicine 08/11/22 Angie Riddle MD [address] [place] [address] Gynecology 08/19/16 documented as of this encounter
--- OUTSIDE RECORDS SUMMARY | 2024-03-01 06:11 | XMS_ITS | Clinical Summary ---
Author Organization [facility] Address [address] [place] [address] Care Team Providers Care Bottom Buffer Name Role Phone Angie Riddle MD Unavailable [phone] Luisa Mitchell DO Primary Care Provider [phone] Allergies No known active allergies Medications omega-3 [...] Type Department Care Team Description 01/14/2024 Telephone [facility] Medical [facility] Cardiology [address] [facility] [address], [place] [address] Yoni Matamoros MD Med Management 01/03/2024 Telephone [facility] Cardiology [address] [facility] [address] [place] [address] Yoni Matamoros MD 12/06/2023 1:00 PM CDT Ancillary Procedure Arrhythmia Center [address] [facility] [address], [place] [address] Cardiac pacemaker in situ (Primary Dx); SSS (sick sinus syndrome) (CMS/HCC) (HCC) from Last 3 Months Surgical History Surgery Date Site/Laterality Comments CARDIAC PACEMAKER PLACEMENT 03/01/2010 - 02/28/2011 Cardiac pacemaker CARDIAC PACEMAKER PLACEMENT Cardiac pacemaker INSERT / REPLACE / REMOVE PACEMAKER Medical History Medical History Date Comments Sick sinus syndrome (CMS/HCC) ([facility]) SSS; Comments: [facility] 07/20/2013 - Paroxysmal atrial fibrillati on (CMS/HCC) ([facility]) PAF - Paroxysmal atrial fibrillation; Comments: [facility] 07/20/2013 - Hypertension Hypertension; Co mments: [facility] 07/20/2013 - Hyperlipidemia Hyperlipidemia; Comments: [facility] 07/20/2013 - Pacemaker 08/26/2016 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 Chronic A lead is from 09-13-03. Lianannette dao-[facility]quis Card. 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 Gender Identity Not on file Sexual [...] 05/28/2014, 03/17/2007 Medical Devices Implanted Type Area Lehr Cutter Device Identifier Shelf Expiration Date Model / Serial / Lot Medtronic Inc Cleone S Mri Surescan 50.8x46.6mm 2 Chamber 7.4mm Pacemaker 22.5gm [id number] - [id number] - [id number] Implanted:Qty: 1 on 11/15/2023 by Arnold Stout III, MD at [facility] Pacemaker Medtronic Inc 01/26/2025 [id number] / [id number] / Explanted Type Area Lehr Cutter Device Identifier Shelf Expiration Date Model / Serial / Lot Pacemaker-2010 Implanted:10/2010 by Skinny Fitzgerald MD (Quantity not on file) Explanted:Qty: 1 on 11/15/2023 by Arnold Stout III, MD at [facility] Pacemaker Left: Chest Medtronic sick sinus syndrome ADAPTA / [id number] / Description:Medtronic Adapta DDD pacemaker on 11/07/2010 [...] to SARMAD Episodes last 90 days/Comments: AF [place] 34 %, there were 28 episodes of [...] Result from Last 3 Months Insurance MEDICARE [employer] MEDICARE [employer] Care Teams Bottom Buffer Relationship Specialty Start Date End Date Luisa Mitchell DO [address] [place] [address] PCP - General Internal Medicine 08/11/22 Angie Riddle MD [address] [place], [place] [id number] Gynecology 08/19/16
--- OUTSIDE RECORDS SUMMARY | 2024-03-01 06:11 | XMS_ITS | Encounter Summary ---
Author Organization [facility] Address [address] [place] [address] Care Team Providers Care Embroidery Patternmaker Name Role Phone Angie Riddle MD Unavailable [phone] Luisa Mitchell DO Primary Care Provider [phone] Reason for Visit * Cardiology (Routine) - Closed Specialty Diagnoses / Procedures Referred By Viridiana oconnor Referred To Contact Diagnoses SSS (sick sinus syndrome) (CMS/HCC) ([facility]) Procedures DEVICE CHECK - IN OFFICE Arnold Stout III, MD [address] [address] Phone: tel: fax: [facility] Referral ID Status Reason Start Date Expiration Date Visits Re quested Visits Authorized [id number] Closed 11/08/2023 12/07/2024 1 1 Encounter Details Date Type Department Care Team (Latest Contact Info) Description 12/06/2023 1:00 PM CDT Ancillary Procedure Arrhythmia Center [address] [facility] [address], [place] [address] Cardiac pacemaker in situ (Primary Dx); SSS [...] on file Legal Sex Female 9:31 AM BUSINESS TRANSFORMATION 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
--- OUTSIDE RECORDS SUMMARY | 2024-03-01 06:11 | XMS_ITS | Encounter Summary ---
Author Organization [facility] Healthcare Address [address] [place] [address] Care Team Providers Care Sql Server Developer Name Role Phone Angie Riddle MD Unavailable [phone] Luisa Mitchell DO Primary Care Provider [phone] Reason for Referral * Cardiology (Routine) - Authorized Specialty Diagnoses / Procedures Referred By Contac t Referred To Contact Diagnoses SSS (sick sinus syndrome) (CMS/HCC) (HCC) Procedures DEVICE CHECK - IN OFFICE Yoni Matamoros MD [address] [address] Phone: tel: fax: Referral ID Status Reason Start Date Expiration Date V isits Requested Visits Authorized [id number] Authorized 11/15/2023 12/14/2024 1 1 * Cardiology (Routine) - Authorized Specialty Diagnoses / Procedures Referred By Contac t Referred To Contact Diagnoses SSS (sick sinus syndrome) (CMS/HCC) (HCC) Procedures DEVICE CHECK - IN OFFICE Yoni Matamoros MD [address] [address] Phone: tel: fax: Referral ID Status Reason Start Date Expiration Date V isits Requested Visits Authorized [id number] Authorized 11/15/2023 12/14/2024 1 1 * Cardiology (Routine) - Authorized Specialty Diagnoses / Procedures Referred By Contac t Referred To Contact Diagnoses SSS (sick sinus syndrome) (CMS/HCC) (HCC) Procedures DEVICE CHECK - REMOTE Yoni Matamoros MD [address] [facility] [facility] [facility] [address] [id number] Phone: tel: fax: Referral ID Status Reason Start Date Expiration Date V isits Requested Visits Authorized [id number] Authorized 11/15/2023 05/14/2025 1 1 * Cardiology (Routine) - Authorized Specialty Diagnoses / Procedures Referred By Contac t Referred To Contact Diagnoses SSS (sick sinus syndrome) (CMS/HCC) (HCC) Procedures DEVICE CHECK - REMOTE Yoni Matamoros MD [address] [facility] [facility] [address], [place] [address] Phone: tel: fax: Referral ID Status Reason Start Date Expiration Date V isits Requested Visits Authorized [id number] Authorized 11/15/2023 05/14/2025 1 1 * Cardiology (Routine) - Authorized Specialty Diagnoses / Procedures Referred By Contac t Referred To Contact Diagnoses SSS (sick sinus syndrome) (CMS/HCC) ([facility]) Procedures DEVICE CHECK - REMOTE Yoni Matamoros MD [address] [facility] [facility] [address], [place] [address] Phone: tel: fax: Referral ID Status Reason Start Date Expiration Date V isits Requested Visits Authorized [id number] Authorized 11/15/2023 05/14/2025 1 1 * Cardiology (Routine) - Authorized Specialty Diagnoses / Procedures Referred By Contac t Referred To Contact Diagnoses SSS (sick sinus syndrome) (CMS/HCC) (HCC) Procedures DEVICE CHECK - REMOTE Yoni Matamoros MD [address] [facility] [address] [place] [address] Phone: tel: fax: Referral ID Status Reason Start Date Expiration Date V isits Requested Visits Authorized [id number] Authorized 11/15/2023 05/14/2025 1 1 * Cardiology (Routine) - Authorized Specialty Diagnoses / Procedures Referred By Contac t Referred To Contact Diagnoses SSS (sick sinus syndrome) (CMS/HCC) (HCC) Procedures DEVICE CHECK - REMOTE Yoni Matamoros MD [address] [facility] [address] [address] Phone: tel: fax: Referral ID Status Reason Start Date Expiration Date V isits Requested Visits Authorized [id number] Authorized 11/15/2023 05/14/2025 1 1 Encounter Details Date Type Department Care Team (Late st Contact Info) Description 11/15/2023 Orders Only [facility] Cardiology [address] [facility] [address] [place] [phone] Yoni Matamoros MD [address] [facility] [address] [place] [address] SSS (sick sinus syndrome) (CMS/HCC) [...] on file 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 Gender Identity Not on file Sexual Orientation Not on file documented as of this encounter Plan of Treatment Scheduled Orders Name Type Priority Associated Diagnoses Orde r Schedule DEVICE CHECK - REMOTE Cardiac Services Routine SSS (sick sinus syndrome) ([facility]/HCC) ([facility]) 1 Occurrences starting 11/15/2023 until 05/14/2025 DEVICE CHECK - REMOTE Cardiac Services Routine SSS (sick sinus syndrome) ([facility]) ([facility]) 1 Occurrences starting 11/15/2023 until 05/14/2025 DEVICE CHECK - REMOTE Cardiac Services Routine SSS (sick sinus syndrome) ([facility]) ([facility]) 1 Occurrences starting 11/15/2023 until 05/14/2025 DEVICE CHECK - REMOTE Cardiac Services Routine SSS (sick sinus syndrome) ([facility]) ([facility]) 1 Occurrences starting 11/15/2023 until 05/14/2025 DEVICE CHECK - REMOTE Cardiac Services Routine SSS (sick sinus syndrome) ([facility]) ([facility]) 1 Occurrences starting 11/15/2023 until 05/14/2025 DEVICE CHECK - IN OFFICE Cardiac Services Routine SSS (sick sinus syndrome) ([facility]/HCC) ([facility]) Expected: 11/15/2023, Expires: 05/14/2025 DEVICE CHECK - IN OFFICE Cardiac Services Routine SSS (sick sinus syndrome) ([facility]/HCC) ([facility]) Expected: 11/15/2023, Expires: 05/14/2025 documented as of this encounter Visit Diagnoses Diagnosis SSS (sick sinus syndrome) ([facility]/HCC) ([facility])- Primary Sinoatrial node dysfunction documented in this encounter Care Teams Sql Server Developer Relationship Specialty Start Date End Date Luisa Mitchell DO [address] [place] [address] PCP - General Internal Medicine 08/11/22 Angie Riddle MD [address] [place] [address] Gynecology 08/19/16 documented as of this encounter
--- OUTSIDE RECORDS SUMMARY | 2024-03-01 06:12 | XMS_ITS | Encounter Summary ---
Author Organization [facility] Address [address] [place] [address] Care Team Providers Care Cash Poster Name Role Phone Angie Riddle MD Unavailable [phone] Hardy Morgan MD PhD Primary Care Provider + Reason for Visit * Diagnostic Imaging (Routine) - Closed Specialty Diagnoses / Procedures Referred By Viridiana oconnor Referred To Contact Procedures Breast Imaging Screening Outside Reference Miscellaneous, Not In File Referral ID Status Reason Start Date Expiration Date Visits Re quested Visits Authorized [id number] Closed 12/18/2022 01/17/2024 1 1 Encounter Details [...] on file 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
--- OUTSIDE RECORDS SUMMARY | 2024-03-01 06:12 | XMS_ITS | Encounter Summary ---
Author Organization [facility] Healthcare Address [address] [place] [address] Care Team Providers Care Type Copyist Name Role Phone Angie Riddle MD Unavailable [phone] Luisa Mitchell DO Primary Care Provider [phone] Reason for Visit * Diagnostic Imaging (Routine) - Closed Specialty Diagnoses / Procedures Referred By Viridiana oconnor Referred To Contact Procedures Breast Imaging Screening Outside Reference Miscellaneous, Not In File Referral ID Status Reason Start Date Expiration Date Visits Re quested Visits Authorized [id number] Closed 12/18/2022 01/17/2024 1 1 Encounter Details [...] file 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
--- OUTSIDE RECORDS SUMMARY | 2024-03-01 06:12 | XMS_ITS | Encounter Summary ---
Author Organization [facility] Healthcare Address [address] [place] [address] Care Team Providers Care Baggage Clerk Name Role Phone Angie Riddle MD Unavailable [phone] Luisa Mitchell DO Primary Care Provider [phone] Reason for Referral * Cardiology (Routine) - Closed Specialty Diagnoses / Procedures Referred By Contac t Referred To Contact Diagnoses SSS (sick sinus syndrome) (CMS/HCC) (HCC) Procedures DEVICE CHECK - REMOTE Yoni Matamoros MD [address], [place] [address] Phone: tel: fax: Referral ID Status Reason Start Date Expiration Date Visits Re quested Visits Authorized [id number] Closed 01/25/2023 07/25/2024 1 1 IMEN ACCESSIONER * Cardiology (Routine) - Closed Specialty Diagnoses / Procedures Referred By Contac t Referred To Contact Diagnoses SSS (sick sinus syndrome) (CMS/HCC) (HCC) Procedures DEVICE CHECK - REMOTE Yoni Matamoros MD [address], [place] [address] Phone: tel: fax: Referral ID Status Reason Start Date Expiration Date Visits Re quested Visits Authorized [id number] Closed 01/25/2023 07/25/2024 1 1 IMEN ACCESSIONER * Cardiology (Routine) - Closed Specialty Diagnoses / Procedures Referred By Contac t Referred To Contact Diagnoses SSS (sick sinus syndrome) (CMS/HCC) (HCC) Procedures DEVICE CHECK - REMOTE Yoni Matamoros MD [address] [facility] [address], [place] [address] Phone: tel: fax: Referral ID Status Reason Start Date Expiration Date Visits Re quested Visits Authorized [id number] Closed 01/25/2023 07/25/2024 1 1 IMEN ACCESSIONER * Cardiology (Routine) - Authorized Specialty Diagnoses / Procedures Referred By Contac t Referred To Contact Diagnoses SSS (sick sinus syndrome) (CMS/HCC) (HCC) Procedures DEVICE CHECK - REMOTE Yoni Matamoros MD [address] [facility] [address], [place] [address] Phone: tel: fax: Referral ID Status Reason Start Date Expiration Date V isits Requested Visits Authorized [id number] Authorized 01/25/2023 07/25/2024 1 1 IMEN ACCESSIONER * Cardiology (Routine) - Authorized Specialty Diagnoses / Procedures Referred By Contac t Referred To Contact Diagnoses SSS (sick sinus syndrome) (CMS/HCC) (HCC) Procedures DEVICE CHECK - REMOTE Yoni Matamoros MD [address] [facility] [address], [place] [address] Phone: tel: fax: Referral ID Status Reason Start Date Expiration Date V isits Requested Visits Authorized [id number] Authorized 01/25/2023 07/25/2024 1 1 IMEN ACCESSIONER Encounter Details Date Type Department Care Team (Late st Contact Info) Description 01/25/2023 Orders Only [facility] Cardiology [facility] [address] [address] Yoni Matamoros MD [address] [place] [address] SSS (sick sinus syndrome) (CMS/HCC) [...] on file Legal Sex Female 9:31 AM SPECIMEN ACCESSIONER Gender Identity Not on file Sexual Orientation [...] to SARMAD Episodes last 90 days/Comments: AF [place] 21.5 %, longest duration currently in progress [...] DEVICE CHECK - REMOTE (05/03/2023 7:44 AM SPECIMEN ACCESSIONER) Anatomical Region Laterality Modality Other Narrative 05/03/2023 12:24 PM SPECIMEN ACCESSIONER Table formatting from the original result was [...] to SARMAD Episodes last 90 days/Comments: AF [place] 18.7 %, longest duration of 3 hours [...] dysfunction documented in this encounter Care Teams Baggage Clerk Relationship Specialty Start Date End Date Luisa Mitchell DO [address] [place], [place] [id number] PCP - General Internal Medicine 08/11/22 Angie Riddle MD [address] [place], [place] [id number] Gynecology 08/19/16 documented as of this encounter
--- OUTSIDE RECORDS SUMMARY | 2024-03-01 06:12 | XMS_ITS | Encounter Summary ---
Author Organization [facility] Healthcare Address [address] [place] [address] Care Team Providers Care Designer Architect Name Role Phone Angie Riddle MD Unavailable Luisa Mitchell DO Primary Care Provider [phone] Reason for Referral * Diagnostic Imaging (Routine) - Closed Specialty Diagnoses / Procedures Referred By Viridiana oconnor Referred To Contact Diagnoses Mass of upper outer quadrant of right breast Procedures Diagnostic Mammogram Right W Qi High NP Phone: tel: fax: [address] [phone] Referral ID Status Reason Start Date Expiration Date Visits Re quested Visits Authorized [id number] Closed 12/08/2022 01/07/2024 1 1 RONMENTAL STUDIES PROFESSOR Reason for Visit * Diagnostic Imaging (Routine) - Closed Specialty Diagnoses / Procedures Referred By Viridiana oconnor Referred To Contact Diagnoses Mass of upper outer quadrant of right breast Procedures Diagnostic Mammogram Right W Qi High NP Phone: tel: fax: [address] [phone] Referral ID Status Reason Start Date Expiration Date Visits Re quested Visits Authorized [id number] Closed 12/08/2022 01/07/2024 1 1 Encounter Details Date Type Department Care Team (Latest Contact Info) Description 01/04/2023 12:30 PM ENVIRONMENTAL STUDIES PROFESSOR - 01/04/2023 11:59 PM ENVIRONMENTAL STUDIES PROFESSOR Hospital Encounter [facility] ([facility]) [address] [place] [address] Mass of upper outer quadrant of right [...] file Legal Sex Female 9:31 AM ENVIRONMENTAL STUDIES PROFESSOR Gender Identity Not on file Sexual Orientation [...] Read Routine (OP Routine) 01/04/2023 1:47 PM ENVIRONMENTAL STUDIES PROFESSOR Mass of upper outer quadrant of right breast documented in this encounter Results * Diagnostic Mammogram Right W [place] (01/04/2023 1:47 PM ENVIRONMENTAL STUDIES PROFESSOR) Anatomical Region Laterality Modality Breast Right Mammography 01/04/2023 2:29 PM ENVIRONMENTAL STUDIES PROFESSOR Impressions 01/04/2023 2:30 PM ENVIRONMENTAL STUDIES PROFESSOR No mammographic or sonographic evidence of malignancy in the RIGHT breast. OVERALL FINAL ASSESSMENT: BI-RADS Category 1: Negative. RECOMMENDATION: Annual screening mammography is recommended. Dictated by: Salvador Vaughn M.D. The radiology attending physician has personally reviewed this study, and had reviewed and/or edited this written report and agrees with it. Electronically signed by: Angie Richards M.D. Narrative 01/04/2023 2:30 PM ENVIRONMENTAL STUDIES PROFESSOR EXAMINATION: RIGHT UNILATERAL DIGITAL DIAGNOSTIC MAMMOGRAM AND [...] breast documented in this encounter Care Teams Designer Architect Relationship Specialty Start Date End Date Luisa Mitchell DO [address] [place] [address] PCP - General Internal Medicine 08/11/22 Angie Riddle MD [address] [place] [address] Gynecology 08/19/16 documented as of this encounter
--- OUTSIDE RECORDS SUMMARY | 2024-03-01 06:12 | XMS_ITS | Encounter Summary ---
Author Organization [facility] Healthcare Address [address] [place] [address] Care Team Providers Care Tag Press Operator Name Role Phone Angie Riddle MD Unavailable [phone] Luisa Mitchell DO Primary Care Provider [phone] Reason for Visit * Diagnostic Imaging (Routine) - Pending Review Specialty Diagnoses / Procedures Referred By Viridiana oconnor Referred To Contact Diagnoses Arthralgia of both hands Procedures XR Knee Right 1 or 2 Views XR Knee Right 3 Views Renetta Geller MD [address] [facility] [address] [place] [address] Phone: tel: fax: [address] [phone] Referral ID Status Reason Start Date Expiration Date V isits Requested Visits Authorized [id number] Pending Review 09/27/2023 10/26/2024 1 1 Encounter Details Date Type Department Care Team (Latest Contact Info) Description 09/27/2023 2:54 PM CDT - 09/27/2023 11:59 PM CDT Hospital Encounter [facility] - Imaging [address] [place] [address] Arthralgia of both hands Discharge [...] on file 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
--- OUTSIDE RECORDS SUMMARY | 2024-03-01 06:12 | XMS_ITS | Encounter Summary ---
Author Organization [facility] Address [address] [facility] [address] [place] [address] Care Team Providers Care Telecommunications Network Planner Name Role Phone Angie Riddle MD Unavailable [phone] Luisa Mitchell DO Primary Care Provider [phone] Reason for Visit * Cardiology (Routine) - Closed Specialty Diagnoses / Procedures Referred By Viridiana oconnor Referred To Contact Diagnoses SSS (sick sinus syndrome) (CMS/HCC) ([facility]) Procedures DEVICE CHECK [place] [address] [place] [address] [address] [address] Phone: tel: fax: [facility] Referral ID Status Reason Start Date Expiration Date Visits Re quested Visits Authorized [id number] Closed 06/26/2021 12/26/2022 1 1 Encounter Details Date Type Department Care Team (Latest Contact Info) Description 10/26/2022 8:30 AM CDT Ancillary Procedure [facility] Medical 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
--- OUTSIDE RECORDS SUMMARY | 2024-03-01 06:12 | XMS_ITS | Encounter Summary ---
Author Organization [facility] Healthcare Address [address] [place] [address] Care Team Providers Care Satellite Tv Installer Name Role Phone Angie Riddle MD Unavailable [phone] Luisa Mitchell DO Primary Care Provider [phone] Reason for Visit * Cardiology (Routine) - Closed Specialty Diagnoses / Procedures Referred By Viridiana oconnor Referred To Contact Diagnoses SSS (sick sinus syndrome) (CMS/HCC) ([facility]) Procedures DEVICE CHECK - REMOTE Yoni Matamoros MD [address] [facility] [address], [place] [address] Phone: tel: fax: Referral ID Status Reason Start Date Expiration Date Visits Re quested Visits Authorized [id number] Closed 01/25/2023 07/25/2024 1 1 Encounter Details Date Type Department Care Team (Latest Contact Info) Description 05/03/2023 7:00 AM HOT KETTLE TENDER Ancillary Procedure [facility] Cardiology [address] [facility] [address], [place] [address] Pacemaker (Primary Dx); SSS (sick [...] on file Legal Sex Female 9:31 AM HOT KETTLE TENDER Gender Identity Not on file Sexual Orientation Not on file documented as of this encounter Plan of Treatment Not on file documented as of this encounter Procedures Procedure Name Priority Date/Time Associated Diagnosis Comments DEVICE CHECK - REMOTE Routine 05/03/2023 7:44 AM HOT KETTLE TENDER SSS (sick sinus syndrome) (CMS/HCC) (HCC) documented in this encounter Results * DEVICE CHECK - REMOTE (05/03/2023 7:44 AM HOT KETTLE TENDER) Anatomical Region Laterality Modality Other Narrative 05/03/2023 12:24 PM HOT KETTLE TENDER Table formatting from the original result was [...] to SARMAD Episodes last 90 days/Comments: AF [place] 18.7 %, longest duration of 3 hours [...] dysfunction documented in this encounter Care Teams Satellite Tv Installer Relationship Specialty Start Date End Date Luisa Mitchell DO [address] [place], [place] [phone] PCP - General Internal Medicine 08/11/22 Angie Riddle MD [address] [place] [address] Gynecology 08/19/16 documented as of this encounter
--- OUTSIDE RECORDS SUMMARY | 2024-03-01 06:12 | XMS_ITS | Encounter Summary ---
Author Organization [facility] Address [address] [facility] [address] [place] [address] Care Team Providers Care Evs Manager Name Role Phone Angie Riddle MD Unavailable [phone] Luias Mitchell DO Primary Care Provider [phone] Encounter Details Date Type Department Care Team (Late st Contact Info) Description 08/13/2022 Orders Only [facility] Cardiology [address] [facility] [address] [place] [address] Provider, MD Mikhail [address] [place], [place] [id number] Social History Tobacco Use Types Packs/Day Years Used Date Smoking Tobacco: Former Cigarettes Q uit: 1985 Smokeless Tobacco: Never Alcohol Use Standard Drinks/Week Comments No 0 (1 standard drink = 0.6 oz pur e alcohol) Comments No Sex and Gender Information Value Date Recorded Sex Assigned at Not on file Legal 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
--- OUTSIDE RECORDS SUMMARY | 2024-03-01 06:12 | XMS_ITS | Encounter Summary ---
Author Organization [facility] Address [address] [place] [address] Care Team Providers Care Scarfer Operator Name Role Phone Angie Riddle MD Unavailable [phone] Hardy Morgan MD PhD Primary Care Provider + Reason for Visit * Cardiology (Routine) - Closed Specialty Diagnoses / Procedures Referred By Viridiana oconnor Referred To Contact Diagnoses SSS (sick sinus syndrome) (CMS/HCC) (HCC) Procedures DEVICE CHECK - REMOTE Yoni Matamoros MD [address] [facility] [address] [place] [address] Phone: tel: fax: [facility] Referral ID Status Reason Start Date Expiration Date Visits Re quested Visits Authorized [id number] Closed 06/26/2021 12/26/2022 1 1 Encounter Details Date Type Department Care Team (Latest Contact Info) Description 02/16/2022 10:15 AM EMISSIONS TECHNICIAN Ancillary Procedure [facility] Medical [facility] Cardiology [address] [place] [id number] SSS (sick sinus syndrome) (CMS/HCC) ([facility]); Pacemaker Social History Tobacco Use Types Packs/Day Years Used Date Smoking Tobacco: Former Cigarettes Q uit: 1985 Smokeless Tobacco: Never Alcohol Use Standard Drinks/Week Comments No 0 (1 standard drink = 0.6 oz pur e alcohol) Comments No Sex and Gender Information Value Date Recorded Sex Assigned at Not on file Legal Sex Female 9:31 AM EMISSIONS TECHNICIAN Gender Identity Not on file Sexual Orientation Not on file documented as of this encounter Plan of Treatment Not on file documented as of this encounter Procedures Procedure Name Priority Date/Time Associated Diagnosis Comments DEVICE CHECK - REMOTE Routine 02/16/2022 8:27 AM EMISSIONS TECHNICIAN SSS (sick sinus syndrome) (CMS/HCC) (HCC) documented in this encounter Results * DEVICE CHECK - REMOTE (02/16/2022 8:27 AM EMISSIONS TECHNICIAN) Anatomical Region Laterality Modality Other Narrative 02/16/2022 2:08 PM EMISSIONS TECHNICIAN Table formatting from the original result was [...] to SARMAD Episodes last 90 days/Comments: AF [place] 5.9 %, longest duration of 17 hours [...] Diagnoses Diagnosis SSS (sick sinus syndrome) (CMS/HCC) ([facility]) Sinoatrial node dysfunction Pacemaker Cardiac pacemaker in situ documented in this encounter Care Teams Scarfer Operator Relationship Specialty Start Date End Date Hardy Morgan MD PhD [address] [facility] [place] [address] PCP - General 12/02/16 08/10/22 Angie Riddle MD [address] [place] [address] Gynecology 08/19/16 documented as of this encounter
--- OUTSIDE RECORDS SUMMARY | 2024-03-01 06:12 | XMS_ITS | Encounter Summary ---
Author Organization [facility] Address [address] [place] [address] Care Team Providers Care Sales Operations Specialist Name Role Phone Angie Riddle MD Unavailable [phone] Luisa Mitchell DO Primary Care Provider [phone] Encounter Details Date Type Department Care Team (Late st Contact Info) Description 02/02/2023 Telephone [facility] Cardiology [address] [facility] [address] [place] [address] Yoni Matamoros MD [address] [facility] [address] [place] [address] Social History Tobacco Use Types Packs/Day Years Used Date Smoking Tobacco: Former Cigarettes Q uit: 1985 Smokeless Tobacco: Never Alcohol Use Standard Drinks/Week Comments No 0 (1 standard drink = 0.6 oz pur e alcohol) Comments No Sex and Gender Information Value Date Recorded Sex Assigned at Not on file Legal Sex Female 9:31 AM MASTER CONTROL TECHNICIAN Gender Identity Not on file Sexual [...] on: 02/02/2023 10:52 AM Modules accepted: Orders ER CONTROL TECHNICIAN * Telephone Encounter - Shakira Matthews - 02/02/2023 10:51 AM MASTER CONTROL TECHNICIAN Was able to reach patient. Reviewed recommendations. Patient verbally understood. Sending in 50mg tabs to [facility] per request. ER CONTROL TECHNICIAN * Telephone Encounter - Shakira Matthews - 02/02/2023 10:28 AM MASTER CONTROL TECHNICIAN Lvm with patient to call office for recommendations. ER CONTROL TECHNICIAN * Telephone Encounter - Yoni Matamoros MD - 02/02/2023 10:18 AM MASTER CONTROL TECHNICIAN Please reach out to let her know [...] at routine device checks every 3 months ER CONTROL TECHNICIAN documented in this encounter Plan of Treatment [...] documented as of this encounter Care Teams Sales Operations Specialist Relationship Specialty Start Date End Date Luisa Mitchell DO [address] [place], [place] [id number] PCP - General Internal Medicine 08/11/22 Angie Riddle MD [address] [place] [address] Gynecology 08/19/16 documented as of this encounter
--- OUTSIDE RECORDS SUMMARY | 2024-03-01 06:12 | XMS_ITS | Encounter Summary ---
Author Organization [facility] Address [address] [facility] [address] [facility] [address] [place] [address] Care Team Providers Care Journalism Intern Name Role Phone Angie Riddle MD Unavailable Hardy Morgan MD PhD Primary Care Provider + Reason for Visit * Cardiology (Routine) - Closed Specialty Diagnoses / Procedures Referred By Viridiana oconnor Referred To Contact Diagnoses SSS (sick sinus syndrome) (CMS/HCC) (HCC) Procedures DEVICE CHECK - REMOTE Yoni Matamoros MD [address] [facility] [address], [place] [address] Phone: tel: fax: [facility] Referral ID Status Reason Start Date Expiration Date Visits Re quested Visits Authorized [id number] Closed 06/26/2021 12/26/2022 1 1 Encounter Details Date Type Department Care Team (Latest Contact Info) Description 05/18/2022 9:45 AM CDT Ancillary Procedure [facility] Medical [facility] Cardiology [address] [place] [address] SSS (sick sinus syndrome) (CMS/HCC) ([facility]); Pacemaker Social History Tobacco Use Types Packs/Day Years Used Date Smoking Tobacco: Former Cigarettes Q uit: 1985 Smokeless Tobacco: Never Alcohol Use Standard Drinks/Week Comments No 0 (1 standard drink = 0.6 oz pur e alcohol) Comments No Sex and Gender Information Value Date Recorded Sex Assigned at Not on file Legal Sex Female 9:31 AM WOOL SPOTTER Gender Identity Not on file Sexual Orientation [...] to SARMAD Episodes last 90 days/Comments: AF [place] 6.6 %, current episode currently in progress [...] Diagnoses Diagnosis SSS (sick sinus syndrome) (CMS/HCC) ([facility]) Sinoatrial node dysfunction Pacemaker Cardiac pacemaker in situ documented in this encounter Care Teams Journalism Intern Relationship Specialty Start Date End Date Hardy Morgan MD PhD [address] [facility] [address] [place] [address] PCP - General 12/02/16 08/10/22 Angie Riddle MD [address] [place] [address] Gynecology 08/19/16 documented as of this encounter
--- OUTSIDE RECORDS SUMMARY | 2024-03-01 06:12 | XMS_ITS | Encounter Summary ---
Author Organization [facility] Address [address] [place] [address] Phone Care Team Providers Care Ship Self Defense System Mk1 Operator Name Role Phone Angie Riddle MD Unavailable [phone] Luisa Mitchell DO Primary Care Provider [phone] Encounter Details Date Type Department Care Team (Late st Contact Info) Description 01/04/2023 Documentation [facility] Surgery [address] [facility] Advanced Medicine 5th [place] [address] [place] [address] Qi Alcala NP [address] [facility] [address] [place] [address] Social History Tobacco Use Types Packs/Day Years Used Date Smoking Tobacco: Former Cigarettes Q uit: 1985 Smokeless Tobacco: Never Alcohol Use Standard Drinks/Week Comments No 0 (1 standard drink = 0.6 oz pur e alcohol) Comments No Sex and Gender Information Value Date Recorded Sex Assigned at Not on file Legal Sex Female 9:31 AM PAROLE DIRECTOR Gender Identity Not on file Sexual Orientation Not on file documented as of this encounter Progress Notes * Qi Alcala NP - 01/04/2023 4:13 PM CST Discussed benign imaging results with patient via phone. Patient verbalized understanding she can follow-up in our office as needed. LE DIRECTOR documented in this encounter Plan of Treatment Not on file documented as of this encounter Visit Diagnoses Not on filedocumented in this encounter Care Teams Ship Self Defense System Mk1 Operator Relationship Specialty Start Date End Date Luisa Mitchell DO [address] [place], [place] [id number] PCP - General Internal Medicine 08/11/22 Angie Riddle MD [address] [place], [place] [id number] Gynecology 08/19/16 documented as of this encounter
--- OUTSIDE RECORDS SUMMARY | 2024-03-01 06:12 | XMS_ITS | Encounter Summary ---
Author Organization [facility] Address [address] [place] [address] Phone Care Team Providers Care Software Computer Specialist Name Role Phone Angie Riddle MD Unavailable [phone] Luisa Mitchell DO Primary Care Provider [phone] Encounter Details Date Type Department Care Team (Late st Contact Info) Description 11/27/2022 Telephone [facility] Surgery [address] [facility] Advanced [facility] 5th [place] [address] [place] [address] Joy Tom Social History Tobacco Use Types Packs/Day Years Used Date Smoking Tobacco: Former Cigarettes Q uit: 1985 Smokeless Tobacco: Never Alcohol Use Standard Drinks/Week Comments No 0 (1 standard drink = 0.6 oz pur e alcohol) Comments No Sex and Gender Information Value Date Recorded Sex Assigned at Not on file Legal Sex Female 9:31 AM VIOLIN MECHANIC Gender Identity Not on file Sexual [...] on filedocumented in this encounter Care Teams Software Computer Specialist Relationship Specialty Start Date End Date Luisa Mitchell DO [address] [place], [place] [id number] PCP - General Internal Medicine 08/11/22 Angie Riddle MD [address] [place], [place] [phone] Gynecology 08/19/16 documented as of this encounter
--- OUTSIDE RECORDS SUMMARY | 2024-03-01 06:12 | XMS_ITS | Encounter Summary ---
Author Organization [facility] Address [address] [place] [address] Phone Care Team Providers Care Pension Agent Name Role Phone Angie Riddle MD Unavailable [phone] Luisa Mitchell DO Primary Care Provider [phone] Reason for Referral * Diagnostic Imaging (Routine) - Closed Specialty Diagnoses / Procedures Referred By Contac t Referred To Contact Diagnoses Mass of right breast, unspecified quadrant Procedures US Breast Right Limited Qi Alcala NP Phone: tel: fax: [address] [address] Referral ID Status Reason Start Date Expiration Date Visits Re quested Visits Authorized [id number] Closed 11/27/2022 12/27/2023 1 1 * Diagnostic Imaging (Routine) - Closed Specialty Diagnoses / Procedures Referred By Contac t Referred To Contact Diagnoses Unspecified lump in the right breast, upper outer quadrant Procedures Breast Imaging DX Outside Consult Qi Alcala NP Phone: tel: fax: [facility] Referral ID Status Reason Start Date Expiration Date Visits Re quested Visits Authorized [id number] Closed 11/27/2022 12/27/2023 1 1 Encounter Details Date Type Department Care Team (Late st Contact Info) Description 11/27/2022 Orders Only [facility] Surgery [address] [facility] 5th [place] [address] [place] [address] Qi Alcala NP [address] [facility] [address] [place] [address] Mass of right breast, unspecified quadrant (Primary [...] on file Legal Sex Female 9:31 AM TRAFFIC INSPECTOR Gender Identity Not on file Sexual Orientation Not on file documented as of this encounter Plan of Treatment Not on file documented as of this encounter Results * US Breast Right Limited (01/04/2023 1:44 PM TRAFFIC INSPECTOR) Anatomical Region Laterality Modality Breast Right Ultrasound 01/04/2023 2:29 PM TRAFFIC INSPECTOR Impressions 01/04/2023 2:30 PM TRAFFIC INSPECTOR No mammographic or sonographic evidence of malignancy in the RIGHT breast. OVERALL FINAL ASSESSMENT: BI-RADS Category 1: Negative. RECOMMENDATION: Annual screening mammography is recommended. Dictated by: Salvador Vaughn M.D. The radiology attending physician has personally reviewed this study, and had reviewed and/or edited this written report and agrees with it. Electronically signed by: Angie Richards M.D. Narrative 01/04/2023 2:30 PM TRAFFIC INSPECTOR EXAMINATION: RIGHT UNILATERAL DIGITAL DIAGNOSTIC MAMMOGRAM AND [...] images may or may not represent the [place] source data set and thus may contain [...] OF OUTSIDE IMAGING FACILITY PERFORMING OUTSIDE IMAGING: [facility] EXAM(S) REVIEWED: 1. ??BILATERAL SCREENING MAMMOGRAM, 10/09/2022 [...] OF OUTSIDE IMAGING FACILITY PERFORMING OUTSIDE IMAGING: [facility] EXAM(S) REVIEWED: 1. BILATERAL SCREENING MAMMOGRAM, 10/09/2022 [...] images may or may not represent the [place] source data set and thus may contain changes which may lower the sensitivity of the second opinion interpretation. Dictated by: Salvador Vaughn M.D. The radiology attending physician has personally reviewed this study, and had reviewed and/or edited this written report and agrees with it. Electronically signed by: Lizzie Chau M.D. Qi Alcala SLUG PRESS OPERATOR IMG MAMMO PROCEDURES Final Result documented in this encounter Visit Diagnoses Diagnosis Mass of right breast, unspecified quadrant- Primary Other abnormal and inconclusive findings on diagnostic imaging of breast Mass of right breast, unspecified quadrant documented in this encounter Care Teams Pension Agent Relationship Specialty Start Date End Date Luisa Mitchell DO [address] [place] [address] PCP - General Internal Medicine 08/11/22 Angie Riddle MD [address] [place] [address] Gynecology 08/19/16 documented as of this encounter
--- OUTSIDE RECORDS SUMMARY | 2024-03-01 06:12 | XMS_ITS | Encounter Summary ---
Author Organization [facility] Healthcare Address [address] [place] [address] Care Team Providers Care Molder Sweep Name Role Phone Angie Riddle MD Unavailable [phone] Luisa Mitchell DO Primary Care Provider [phone] Encounter Details Date Type Department Care Team (Late st Contact Info) Description 03/25/[address] [facility] Cardiology [address] [facility] [address] [place] [address] Yoni Matamoros MD [address] [facility] [address] [place] [address] Social History Tobacco Use Types [...] on file Legal Sex Female 9:31 AM PENAL OFFICER Gender Identity Not on file Sexual Orientation [...] Kavita Roa LPN - 03/25/2023 4:03 PM PENAL OFFICER called for update to refill line. Called pt at this time and updated rx was faxed to pharmacy. L OFFICER * Telephone Encounter - Kavita Roa LPN - 03/25/2023 9:16 AM PENAL OFFICER Faxed over paper script at this time to [facility] L OFFICER * Telephone Encounter - Jacquelin Mohan MA - 03/25/2023 8:29 AM CST Patient left message on refill line requesting Pradaxa 150 mg refill to be sent Rosum L OFFICER documented in this encounter Plan of Treatment Not on file documented as of this encounter Visit Diagnoses Not on filedocumented in this encounter Discontinued Medications Medication Sig Discontinue Reason Start Date End Da te dabigatran (Pradaxa) 150 mg capsule Take 1 capsule (150 mg total) by mouth 2 (two) times a day Reorder 03/31/2022 03/25/2023 documented as of this encounter Care Teams Molder Sweep Relationship Specialty Start Date End Date Luisa Mitchell DO [address] [place] [address] PCP - General Internal Medicine 08/11/22 Angie Riddle MD [address] [place], [place] [phone] Gynecology 08/19/16 documented as of this encounter
--- OUTSIDE RECORDS SUMMARY | 2024-03-01 06:12 | XMS_ITS | Encounter Summary ---
Author Organization [facility] Address [address] [place] [address] Phone Care Team Providers Care Change Control Analyst Name Role Phone Angie Riddle MD Unavailable [phone] Luisa Mitchell DO Primary Care Provider [phone] Encounter Details Date Type Department Care Team (Late st Contact Info) Description 11/27/2022 Documentation [facility] Surgery [address] [facility] [address] [facility] 5th [place] [address] [place] [address] Joy Tom Social History Tobacco Use Types Packs/Day Years Used Date Smoking Tobacco: Former Cigarettes Q uit: 1985 Smokeless Tobacco: Never Alcohol Use Standard Drinks/Week Comments No 0 (1 standard drink = 0.6 oz pur e alcohol) Comments No Sex and Gender Information Value Date Recorded Sex Assigned at Not on file Legal Sex Female 9:31 AM INFORMATION SYSTEMS SECURITY OFFICER Gender Identity Not on file Sexual Orientation Not on file documented as of this encounter Progress Notes * Joy Tom - 11/27/2022 12:20 PM CDT Put new patient packet in mail documented in this encounter Plan of Treatment Not on file documented as of this encounter Visit Diagnoses Not on filedocumented in this encounter Care Teams Change Control Analyst Relationship Specialty Start Date End Date Luisa Mitchell DO [address] [place], [place] [id number] PCP - General Internal Medicine 08/11/22 Angie Riddle MD [address] [place] [address] Gynecology 08/19/16 documented as of this encounter
--- OUTSIDE RECORDS SUMMARY | 2024-03-01 06:12 | XMS_ITS | Encounter Summary ---
Author Organization [facility] Healthcare Address [address] [place] [address] Care Team Providers Care Chisel Grinder Name Role Phone Angie Riddle MD Unavailable [phone] Luisa Mitchell DO Primary Care Provider [phone] Reason for Visit * Auth/Cert (Routine) Specialty Diagnoses / Procedures Referred By Viridiana oconnor Referred To Contact Diagnoses SSS (sick sinus syndrome) (CMS/HCC) (HCC) SSS (sick sinus syndrome) (CMS/HCC) (HCC) [I49.5] Procedures MA REMVL PERM PM PLS GEN W/REPL PLSE GEN 2 LEAD SYS REMOVE/REPLACE PACEMAKER (PPM) DUAL LEAD SYSTEM [id number] Arnold Stout III, MD [address] [address] Phone: tel: fax: Referral ID Status Reason Start Date Expiration Date Visits Re quested Visits Authorized [id number] 11/08/2023 1 1 Encounter Details Date Type Department Care Team (Latest Contact Info) Description 11/15/2023 3:25 PM CDT - 11/15/2023 4:45 PM CDT Surgery [facility] Elect[facility] [address] [place] [address] Arnold Stout III, MD [address] [address] REMOVE/REPLACE PACEMAKER (PPM) DUAL LEAD SYSTEM [id number] Surgery Details Date/Time Status Location OR Service Patient Class Case Class Case Type Trauma Case? 11/15/2023 3:25 PM Posted [facility] EP LAB EP D Cardiovascular Outpatient Elective Panel 1 Procedure LRB Anes Op Region Wound Class Comments REMOVE/REPLACE PACEMAKER (PP M) DUAL LEAD SYSTEM [address]73 N/A Choice Surgeon Surgeon Role Service Panel Arnold Stout III, MD Primary Cardiovascu lar 1 Case Notes STAFF NURSE ANESTHETIST/MEDTRONICPPM GEN CHANGE documented in this encounter Social [...] on file Legal Sex Female 9:31 AM BREAK OUT WORKER Gender Identity Not on file Sexual Orientation [...] from the original note were not included. [facility] Arrhythmia Center Discharge Instructions [...] with you, please read the instructions and tong hooker the monitor. Additional Instructions Extra Strength Tylenol may be taken every 6 hours as needed for pain. You should avoid strong magnetic currents (large electrical generators, arc welding). You can operate any home electrical appliances including microwave ovens. Notify the physician office at [phone], immediately if you develop abrupt dizziness or shortness of breath. If you feel there is an urgent matter, call 911 or go to the emergency room. Call the office at [phone] with any questions or concerns. Call to schedule a follow-up appointment / wound check. This should be done in the first 7-10 days following your procedure. IMPORTANT: DO NOT TAKE PRADAXA (DABIGATRAN) FOR 3 days AFTER THE PROCEDURE. YOU MAY RESUME ON 11/18/23 Arnold Stout III, M.D. Cardiac Electrophysiology [facility] Arrhythmia Center [facility] 11/08/2023 documented in this encounter Medications at [...] III, MD - 11/17/2023 9:36 PM CDT [facility] Arrhythmia Center: Focused H&P Patient ID [...] Diagnosis Date Noted SSS (sick sinus syndrome) ([facility]/HCC) ([facility]) 11/08/2023 Paroxysmal atrial fibrillation ([facility]) ([facility]) 09/07/2016 Overview Note: On chronic AC. 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 Chronic A lead is from 09-13-03. [employer] [facility] Card. Breast mass, left 08/19/2016 Allergies No [...] parameters and device programming: - RA Lead (#[id number]): Sensing 3.1 mV, Pacing threshold 1.2 V at 0.5 ms, Imp 532 Ohm - RV Lead (#[id number]): Sensing >8 mV, Pacing threshold 1.0 V at 0.5 ms, Imp 494 Ohm - Device: Medvi [address] DR MRI SureScan pacemaker (#[id number]), programmed MVPR 60-120 ppm - Explanted device: Medtronic Jose COBOS (#[id number]) Conclusions: 1. Successful dual chamber pacemaker revision 2. Pulse generator change, pacemaker Recommendations: 1. Discharge home when stable 2. Oral antibiotics for five days 3. Hold pradaxa for 3 days. 4. Follow-up will be arranged in the Arrhythmia Center 7-10 days post-discharge Arnold Stout III, M.D. Cardiac Electrophysiology [facility] Arrhythmia Center [facility] documented in this encounter Plan of Treatment [...] CDT) 11/15/2023 12:0 2 PM CDT Narrative [facility] - 11/15/2023 9:46 PM CDT Vent Rate: 65 bpm RR Interval: 921 msec MA Interval: 0 msec QRS Duration: 202 msec QT Interval: 486 msec QTC Interval: 497 msec P-R-T [place]: 0 - 102 - -66 degrees IMPRESSION: ELECTRONIC VENTRICULAR PACEMAKER ABNORMAL RHYTHM ECG Electronically Signed By: Rajendra Nuens MD Arnold Stout III, MD ECG ORDERABLES Fin al Result [facility] documented in this encounter Visit Diagnoses [...] 11/15/2023 documented in this encounter Care Teams Chisel Grinder Relationship Specialty Start Date End Date Luisa Mitchell DO [address] [place], [place] [id number] PCP - General Internal Medicine 08/11/22 Angie Riddle MD [address] [place] [address] Gynecology 08/19/16 documented as of this encounter
--- OUTSIDE RECORDS SUMMARY | 2024-03-01 06:12 | XMS_ITS | Encounter Summary ---
Author Organization [facility] Address [address] [place] [address] Care Team Providers Care Aquatic Habitat Biologist Name Role Phone Angie Riddle MD Unavailable [phone] Luisa Mitchell DO Primary Care Provider [phone] Reason for Visit * Cardiology (Routine) - Closed Specialty Diagnoses / Procedures Referred By Viridiana oconnor Referred To Contact Diagnoses Pacemaker Procedures DEVICE CHECK - IN OFFICE Yoni Matamoros MD [address] [facility] [address] [place] [address] Phone: tel: fax: [facility] Referral ID Status Reason Start Date Expiration Date Visits Re quested Visits Authorized [id number] Closed 08/10/2022 09/09/2023 1 1 Encounter Details Date Type Department Care Team (Latest Contact Info) Description 08/11/2022 11:30 AM CDT Ancillary Procedure [facility] Medical [facility] Cardiology [address] [facility] [address] [place] [id number] Cardiac pacemaker in situ (Primary Dx); Pacemaker Social History Tobacco Use Types Packs/Day Years Used Date Smoking Tobacco: Former Cigarettes Q uit: 1985 Smokeless Tobacco: Never Alcohol Use Standard Drinks/Week Comments No 0 (1 standard drink = 0.6 oz pur e alcohol) Comments No Sex and Gender Information Value Date Recorded Sex Assigned at Not on file Legal Sex Female 9:31 AM WRECKER DRIVER Gender Identity Not on file Sexual [...] to SARMAD Episodes last 90 days/Comments: AF [place] 8.7 %, there were numerous episodes of [...] documented in this encounter Care Teams Aquatic Habitat Biologist Relationship Specialty Start Date End Date Luisa Mitchell DO [address] [place] [address] PCP - General Internal Medicine 08/11/22 Angie Riddle MD [address] [place] [address] Gynecology 08/19/16 documented as of this encounter
--- OUTSIDE RECORDS SUMMARY | 2024-03-01 06:12 | XMS_ITS | Encounter Summary ---
Author Organization [facility] Healthcare Address [address] [place] [address] Care Team Providers Care Traffic Monitor Specialist Name Role Phone Angie Riddle MD Unavailable [phone] Luisa Mitchell DO Primary Care Provider [phone] Reason for Visit * Cardiology (Routine) - Closed Specialty Diagnoses / Procedures Referred By Viridiana oconnor Referred To Contact Diagnoses SSS (sick sinus syndrome) (CMS/HCC) ([facility]) Procedures DEVICE CHECK - REMOTE Yoni Matamoros MD [address] [facility] [address] [address] Phone: tel: fax: Referral ID Status Reason Start Date Expiration Date Visits Re quested Visits Authorized [id number] Closed 01/25/2023 07/25/2024 1 1 Encounter Details Date Type Department Care Team (Latest Contact Info) Description 11/08/2023 9:00 AM CDT Ancillary Procedure [facility] Cardiology [address] [facility] [address], [place] [address] Pacemaker (Primary Dx); SSS (sick [...] on file Legal Sex Female 9:31 AM RESEARCH DIETITIAN Gender Identity Not on file Sexual Orientation [...] dysfunction documented in this encounter Care Teams Traffic Monitor Specialist Relationship Specialty Start Date End Date Luisa Mitchell DO [address] [place], [place] [id number] PCP - General Internal Medicine 08/11/22 Angie Riddle MD [address] [place] [address] Gynecology 08/19/16 documented as of this encounter
--- OUTSIDE RECORDS SUMMARY | 2024-03-01 06:12 | XMS_ITS | Encounter Summary ---
Author Organization [facility] Address [address] [address] [place] [address] Care Team Providers Care Internet Sales Manager Name Role Phone Angie Riddle MD Unavailable Luisa Mitchell DO Primary Care Provider [phone] Reason for Referral * Cardiology (Routine) - Closed Specialty Diagnoses / Procedures Referred By Viridiana oconnor Referred To Contact Diagnoses Pacemaker Procedures DEVICE CHECK - IN OFFICE Yoni Matamoros MD [address] [facility] [address] [place] [address] Phone: tel: fax: [facility] Referral ID Status Reason Start Date Expiration Date Visits Re quested Visits Authorized [id number] Closed 08/10/2022 09/09/2023 1 1 Reason for Visit * Reason Comments Atrial Fibrillation Encounter Details Date Type Department Care Team (Late st Contact Info) Description 08/11/2022 11:45 AM CDT Office Visit [facility] Cardiology [address] [facility] [address] [place] [address] Yoni Matamoros MD [address] [place] [address] Pacemaker (Primary Dx); SSS (sick [...] on file Legal Sex Female 9: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 [facility] Cardiology [facility], [address], [facility] [address] [place] [phone] Cardiology Electrophysiology Jose Ramon Walker, MD Cesar Tucker,, MD Jonathan Garcia, MD Skinny Fitzgerald, MD Nilton Mason, MD Arnold Stout, MD Jacob Infante, DO Antonio Canela, MD Quiana Cifuentes, PLEASURE CRAFT SAILOR Rajendra Nunes, MD Pollo Reynolds, MD Chester Pineda, MD Tomer Manjarrez, DO Yoni Matamoros, MD Madalyn Cutler, PLEASURE CRAFT SAILOR Claudia Diaz, PLEASURE CRAFT SAILOR Cj Kaplan, PLEASURE CRAFT SAILOR Nisa Redd, PLEASURE CRAFT SAILOR Patient Name: Francine Erwin Provider: Yoni Matamoros [...] estimated 2.5 years to SARMAD Matamoros MD [facility] Facilities Planner This note was dictated in part using [email or web address] voice recognition software. Despite careful review of [...] to SARMAD Episodes last 90 days/Comments: AF [place] 8.7 %, there were numerous episodes of [...] daily added in this encounter Care Teams Internet Sales Manager Relationship Specialty Start Date End Date Luisa Mitchell DO [address] [place] [address] PCP - General Internal Medicine 08/11/22 Angie Riddle MD [address] [place], [place] [address] Gynecology 08/19/16 documented as of this encounter
--- OUTSIDE RECORDS SUMMARY | 2024-03-01 06:12 | XMS_ITS | Encounter Summary ---
Author Organization [facility] Medical Group Address [address] [facility] [facility] [address] [place] [address] Care Team Providers Care Algorithm Developer Name Role Phone Angie Riddle MD Unavailable [phone] Hardy Morgan MD PhD Primary Care Provider + Reason for Visit * Cardiology (Routine) - Closed Specialty Diagnoses / Procedures Referred By Viridiana oconnor Referred To Contact Diagnoses SSS (sick sinus syndrome) (CMS/HCC) (HCC) Procedures DEVICE CHECK - REMOTE Yoni Matamoros MD [address] [facility] [address], [place] [address] Phone: tel: fax: [facility] Referral ID Status Reason Start Date Expiration Date Visits Re quested Visits Authorized [id number] Closed 06/26/2021 12/26/2022 1 1 Encounter Details Date Type Department Care Team (Latest Contact Info) Description 11/17/2021 7:15 AM CDT Ancillary Procedure [facility] Medical [facility] Cardiology [address] [facility] [address] [place] [address] SSS (sick sinus syndrome) (CMS/HCC) ([facility] 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
--- OUTSIDE RECORDS SUMMARY | 2024-03-01 06:12 | XMS_ITS | Encounter Summary ---
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
--- OUTSIDE RECORDS SUMMARY | 2024-03-01 06:12 | XMS_ITS | Encounter Summary ---
Author Organization [facility] Healthcare Address [address] [place] [address] Care Team Providers Care Cafeteria Manager Name Role Phone Angie Riddle MD Unavailable [phone] Luisa Mitchell DO Primary Care Provider [phone] Reason for Visit * Reason Comments Atrial Fibrillation 1 year f/u Encounter Details Date Type Department Care Team (Late st Contact Info) Description 08/24/2023 11:45 AM CDT Office Visit [facility] Cardiology [address] 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 [facility] Cardiology [facility] [facility], [address] [place], [place], [address] [facility] [facility] [address], [place] [address] Cardiology Electrophysiology Jose Ramon Walker, MD Cesar Tucker,, MD Jonathan Garcia, MD Arley [place], MD Nilton Mason, MD Arnold Stout, MD Antonio Canela, MD Rajendra Nunes, MD Cristhian Murry, V BELT FINISHER Pollo Reynolds, MD Erika Yu, V BELT FINISHER Chester Pineda, MD Quiana Cifuentes, COMMODITIES REQUIREMENTS ANALYST Yoni Matamoros, MD Madalyn Cutler, JULIANA Diaz, COMMODITIES REQUIREMENTS ANALYST Nisa Redd, COMMODITIES REQUIREMENTS ANALYST Jnoathan Foster, PA Patient Name: Francine Erwin Provider: [...] exchange sometime this fall Yoni Matamoros MD [facility] Sound Engineer Audio Control This note was dictated in part using [employer] voice recognition software. Despite careful review of [...] 08/01/2023 added in this encounter Care Teams Cafeteria Manager Relationship Specialty Start Date End Date Luisa Mitchell DO [address] [place], [place] [address] PCP - General Internal Medicine 08/11/22 Angie Riddle MD [address] [place], [place] [address] Gynecology 08/19/16 documented as of this encounter
--- OUTSIDE RECORDS SUMMARY | 2024-03-01 06:12 | XMS_ITS | Encounter Summary ---
Author Organization [facility] Healthcare Address [address] [place] [address] Care Team Providers Care Furniture Cleaner Name Role Phone Angie Riddle MD Unavailable [phone] Luisa Mitchell DO Primary Care Provider [phone] Reason for Referral * MRI/CAT/PET Scan (Routine) - Closed Specialty Diagnoses / Procedures Referred By Lindseyac elvin Referred To Contact Radiology Diagnoses Anterograde amnesia Procedures CT Head W Contrast Luisa Mitchell DO [address] [address] Phone: tel: fax: [address] [phone] Referral ID Status Reason Start Date Expiration Date Visits Re quested Visits Authorized [id number] Closed 08/11/2023 09/09/2024 1 1 Reason for Visit * MRI/CAT/PET Scan (Routine) - Closed Specialty Diagnoses / Procedures Referred By Contgerri oconnor Referred To Contact Radiology Diagnoses Anterograde amnesia Procedures CT Head W Contrast Luisa Mitchell DO [address] [address] Phone: tel: fax: [address] [phone] Referral ID Status Reason Start Date Expiration Date Visits Re quested Visits Authorized [id number] Closed 08/11/2023 09/09/2024 1 1 Encounter Details Date Type Department Care Team (Latest Contact Info) Description 08/19/2023 11:05 AM CDT - 08/19/2023 11:59 PM CDT Hospital Encounter [facility] Imaging and Radiology [address] [place] [address] Anterograde amnesia Discharge Disposition: Discharge to home [...] on file Legal 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
--- OUTSIDE RECORDS SUMMARY | 2024-03-01 06:12 | XMS_ITS | Encounter Summary ---
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 Electronically signed by: Fletcher Ortzi M.D. Narrative 09/27/2023 4:20 PM CDT Bilateral [...] hands documented in this encounter Care Teams Merchant Seaman Relationship Specialty Start Date End Date Luisa Mitchell DO [address] [place], [place] [address] PCP - General Internal Medicine 08/11/22 Angie Riddle MD [address] [place] [address] Gynecology 08/19/16 documented as of this encounter
--- OUTSIDE RECORDS SUMMARY | 2024-03-01 06:12 | XMS_ITS | Encounter Summary ---
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
--- OUTSIDE RECORDS SUMMARY | 2024-03-01 06:12 | XMS_ITS | Encounter Summary ---
Author Organization [facility] Healthcare Address [address] [place] [address] Care Team Providers Care Solutions Architect Name Role Phone Angie Riddle MD Unavailable Luisa Mitchell DO Primary Care Provider Reason for Visit * Cardiology (Routine) - Closed Specialty Diagnoses / Procedures Referred By Viridiana oconnor Referred To Contact Diagnoses SSS (sick sinus syndrome) (CMS/HCC) ([facility]) Procedures DEVICE CHECK - REMOTE Yoni Matamoros MD [address] [facility] [address] [address] Phone: tel: fax: Referral ID Status Reason Start Date Expiration Date Visits Re quested Visits Authorized [id number] Closed 01/25/2023 07/25/2024 1 1 Encounter Details Date Type Department Care Team (Latest Contact Info) Description 08/02/2023 9:15 AM CDT Ancillary Procedure [facility] Medical Group Cardiology [address] [facility] [address], [place] [address] Pacemaker (Primary Dx); SSS (sick [...] on file Legal Sex Female 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
--- OUTSIDE RECORDS SUMMARY | 2024-03-01 06:12 | XMS_ITS | Encounter Summary ---
Author Organization [facility] Medical [facility] Address [address] [facility] [address] [place] [address] Care Team Providers Care Label Paster Name Role Phone Angie Riddle MD Unavailable [phone] Hardy Morgan MD PhD Primary Care Provider + Reason for Visit * Cardiology (Routine) - Closed Specialty Diagnoses / Procedures Referred By Viridiana oconnor Referred To Contact Diagnoses Pacemaker Procedures DEVICE CHECK - IN OFFICE Yoni Matamoros MD [address] [facility] [address] [place] [address] Phone: tel: fax: [facility] Referral ID Status Reason Start Date Expiration Date Visits Re quested Visits Authorized [id number] Closed 08/12/2020 09/11/2021 1 1 Encounter Details Date Type Department Care Team (Latest Contact Info) Description 08/12/2021 12:30 PM CDT Ancillary Procedure 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
--- OUTSIDE RECORDS SUMMARY | 2024-03-01 06:12 | XMS_ITS | Encounter Summary ---
Author Organization [facility] Address [address] [facility] [address] [place] [address] Care Team Providers Care Biological Technical Officer Name Role Phone Angie Riddle MD Unavailable Hardy Morgan MD PhD Primary Care Provider + Reason for Visit * Reason Comments Atrial Fibrillation Encounter Details Date Type Department Care Team (Late st Contact Info) Description 08/12/2021 1:00 PM CDT Office Visit [facility] Medical [facility] Cardiology [address] [facility] [facility] [address] [place] [address] Yoni Matamoros MD [facility] [address] [place] [address] Paroxysmal atrial fibrillation (CMS/HCC) (HCC) [...] on file Legal Sex Female 9:31 AM REFINED SYRUP 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 [facility] Cardiology [address] [facility], [address] [place], [place], [facility] [address] Cardiology Electrophysiology Jose Ramon Walker, MD Cesar Tucker,, MD Jonathan Garcia, MD Skinny Fitzgerald, MD Nilton Mason, MD Arnold Stout, MD Jacob Infante, DO Antonio Canela, MD Quiana Cifuentes, JULIANA Nunes, MD Linda Carlton, MD Pollo Reynolds, MD Chester Pineda, MD Tomer Manjarrez, DO Yoni Matamoros, MD Shakira Maradiaga, SPECIMEN PREPARATION ASSISTANT Madalyn Cutler, SPECIMEN PREPARATION ASSISTANT Claudia Diaz, SPECIMEN PREPARATION ASSISTANT Patient Name: Francine Erwin Provider: Yoni [...] 3.5 years to SARMAD Yoni Witbrodt, MD [facility] Internal Medicine Nurse This note was dictated in part using [employer] voice recognition software. Despite careful review of this note, variances in spelling and vocabulary are possible and unintentional. documented in this encounter Plan of Treatment Not on file documented as of this encounter Visit Diagnoses Diagnosis Paroxysmal atrial fibrillation (CMS/HCC) (HCC)- Primary Atrial fibrillation documented in this encounter Care Teams Biological Technical Officer Relationship Specialty Start Date End Date Hardy Morgan MD PhD [address] [facility] [address] [place] [address] PCP - General 12/02/16 08/10/22 Angie Riddle MD [address] [place] [address] Gynecology 08/19/16 documented as of this encounter
--- OUTSIDE RECORDS SUMMARY | 2024-03-01 06:12 | XMS_ITS | Encounter Summary ---
Author Organization [facility] Address [address] [place] [address] Care Team Providers Care Balancing Machine Operator Name Role Phone Angie Riddle MD Unavailable Luisa Mitchell DO Primary Care Provider [phone] Reason for Referral * Diagnostic Imaging (Routine) - Closed Specialty Diagnoses / Procedures Referred By Viridiana oconnor Referred To Contact Diagnoses Unspecified lump in the right breast, upper outer quadrant Procedures Breast Imaging DX Outside Consult Qi Alcala NP Phone: tel: fax: [facility] Referral ID Status Reason Start Date Expiration Date Visits Re quested Visits Authorized [id number] Closed 11/27/2022 12/27/2023 1 1 Reason for Visit * Diagnostic Imaging (Routine) - Closed Specialty Diagnoses / Procedures Referred By Viridiana oconnor Referred To Contact Diagnoses Unspecified lump in the right breast, upper outer quadrant Procedures Breast Imaging DX Outside Consult Qi Alcala NP Phone: tel: fax: [facility] Referral ID Status Reason Start Date Expiration Date Visits Re quested Visits Authorized [id number] Closed 11/27/2022 12/27/2023 1 1 Encounter Details Date Type Department Care Team (Latest Contact Info) Description 12/18/2022 5:00 PM CDT - 12/18/2022 11:59 PM CDT Hospital Encounter [facility] [address] [place] [address] Discharge Disposition: Discharge to home or self care Social History Tobacco Use Types Packs/Day Years Used Date Smoking Tobacco: Former Cigarettes Q uit: 1984 Smokeless Tobacco: Never Alcohol Use Standard Drinks/Week Comments No 0 (1 standard drink = 0.6 oz pur e alcohol) Comments No Sex and Gender Information Value Date Recorded Sex Assigned at Not on file 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 ??BILATERAL SCREENING MAMMOGRAM, 10/09/2022 [...] OF OUTSIDE IMAGING FACILITY PERFORMING OUTSIDE IMAGING: [facility] EXAM(S) REVIEWED: 1. BILATERAL SCREENING MAMMOGRAM, 10/09/2022 [...] images may or may not represent the galena source data set and thus may contain changes which may lower the sensitivity of the second opinion interpretation. Dictated by: Salvador Vaughn M.D. The radiology attending physician has personally reviewed this study, and had reviewed and/or edited this written report and agrees with it. Electronically signed by: Lizzie Chau M.D. Qi Alcala PER DIEM REGISTERED NURSE IMG MAMMO PROCEDURES Final Result documented in this encounter Visit Diagnoses Not on filedocumented in this encounter Care Teams Balancing Machine Operator Relationship Specialty Start Date End Date Luisa Mitchell DO [address] [place], [place] [id number] PCP - General Internal Medicine 08/11/22 Angie Riddle MD [address] [place] [address] Gynecology 08/19/16 documented as of this encounter
--- OUTSIDE RECORDS SUMMARY | 2024-03-01 06:12 | XMS_ITS | Encounter Summary ---
Author Organization [facility] Healthcare Address [address] [place] [address] Care Team Providers Care Gang Rider Name Role Phone Angie Riddle MD Unavailable [phone] Luisa Mitchell DO Primary Care Provider [phone] Reason for Referral * Diagnostic Imaging (Routine) - Closed Specialty Diagnoses / Procedures Referred By Viridiana oconnor Referred To Contact Diagnoses Mass of right breast, unspecified quadrant Procedures US Breast Right Limited Qi Alcala NP Phone: tel: fax: [address] [address] Referral ID Status Reason Start Date Expiration Date Visits Re quested Visits Authorized [id number] Closed 11/27/2022 12/27/2023 1 1 VISION OPERATOR Reason for Visit * Diagnostic Imaging (Routine) - Closed Specialty Diagnoses / Procedures Referred By Viridiana oconnor Referred To Contact Diagnoses Mass of right breast, unspecified quadrant Procedures US Breast Right Limited Qi Alcala NP Phone: tel: fax: [address] [address] Referral ID Status Reason Start Date Expiration Date Visits Re quested Visits Authorized [id number] Closed 11/27/2022 12/27/2023 1 1 Encounter Details Date Type Department Care Team (Latest Contact Info) Description 01/04/2023 12:30 PM TELEVISION OPERATOR - 01/04/2023 11:59 PM TELEVISION OPERATOR Hospital Encounter [facility] [address] [place] [address] Mass of right breast, unspecified quadrant Discharge [...] on file Legal Sex Female 9:31 AM TELEVISION OPERATOR Gender Identity Not on file Sexual [...] Read Routine (OP Routine) 01/04/2023 1:44 PM TELEVISION OPERATOR Mass of right breast, unspecified quadrant documented in this encounter Results * US Breast Right Limited (01/04/2023 1:44 PM TELEVISION OPERATOR) Anatomical Region Laterality Modality Breast Right Ultrasound 01/04/2023 2:29 PM TELEVISION OPERATOR Impressions 01/04/2023 2:30 PM TELEVISION OPERATOR No mammographic or sonographic evidence of malignancy in the RIGHT breast. OVERALL FINAL ASSESSMENT: BI-RADS Category 1: Negative. RECOMMENDATION: Annual screening mammography is recommended. Dictated by: Salvador Vaughn M.D. The radiology attending physician has personally reviewed this study, and had reviewed and/or edited this written report and agrees with it. Electronically signed by: Angie Richards M.D. Narrative 01/04/2023 2:30 PM TELEVISION OPERATOR EXAMINATION: RIGHT UNILATERAL DIGITAL DIAGNOSTIC MAMMOGRAM AND [...] quadrant documented in this encounter Care Teams Gang Rider Relationship Specialty Start Date End Date Luisa Mitchell DO [address] [place], [place] [id number] PCP - General Internal Medicine 08/11/22 Angie Riddle MD [address] [place] [address] Gynecology 08/19/16 documented as of this encounter
--- OUTSIDE RECORDS SUMMARY | 2024-03-01 06:12 | XMS_ITS | Encounter Summary ---
Author Organization [facility] Address [address] [place] [address] Care Team Providers Care Mortgage Closing Clerk Name Role Phone Angie Riddle MD Unavailable Hardy Morgan MD PhD Primary Care Provider + Reason for Visit * Diagnostic Imaging (Routine) - Closed Specialty Diagnoses / Procedures Referred By Viridiana oconnor Referred To Contact Procedures Breast Imaging Screening Outside Reference Miscellaneous, Not In File Referral ID Status Reason Start Date Expiration Date Visits Re quested Visits Authorized [id number] Closed 12/18/2022 01/17/2024 1 1 Encounter Details [...] on file Legal Sex Female 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
--- OUTSIDE RECORDS SUMMARY | 2024-03-01 06:12 | XMS_ITS | Encounter Summary ---
Author Organization [facility] Healthcare Address [address] [place] [address] Care Team Providers Care Director Multimedia Name Role Phone Angie Riddle MD Unavailable [phone] Luisa Mitchell DO Primary Care Provider [phone] Reason for Visit * Reason Onset Date Comments Medical Records Request 02/05/2023 Encounter Details Date Type Department Care Team (Late st Contact Info) Description 02/05/2023 Telephone [facility] [address] [place] [phone] Maren Kohler RN Medical Records Request Social History Tobacco Use Types Packs/Day Years Used Date Smoking Tobacco: Former Cigarettes Q uit: 1985 Smokeless Tobacco: Never Alcohol Use Standard Drinks/Week Comments No 0 (1 standard drink = 0.6 oz pur e alcohol) Comments No Sex and Gender Information Value Date Recorded Sex Assigned at Not on file Legal Sex Female 9:31 AM 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 Riddle's office. [place] saved request to drive, uploaded to [employer], obtained records, and faxed to SAUNDRA Carrasquillo at Dr. Riddle's office at the number provided [phone]. WRITER RIBBON WINDER documented in this encounter Plan of Treatment Not on file documented as of this encounter Visit Diagnoses Not on filedocumented in this encounter Care Teams Director Multimedia Relationship Specialty Start Date End Date Luisa Mitchell DO [address] [place], [place] [id number] PCP - General Internal Medicine 08/11/22 Angie Riddle MD [address] [place] [address] Gynecology 08/19/16 documented as of this encounter
--- OUTSIDE RECORDS SUMMARY | 2024-03-01 06:12 | XMS_ITS | Encounter Summary ---
Author Organization [facility] Healthcare Address [address] [place] [address] Care Team Providers Care Journeyman Powerhouse Operator Name Role Phone Angie Riddle MD Unavailable [phone] Luisa Mitchell DO Primary Care Provider [phone] Reason for Visit * Diagnostic Imaging (Routine) - Closed Specialty Diagnoses / Procedures Referred By Viridiana oconnor Referred To Contact Procedures Breast Imaging Diagnostic Outside Reference Miscellaneous, Not In File Referral ID Status Reason Start Date Expiration Date Visits Re quested Visits Authorized [id number] Closed 12/18/2022 01/17/2024 1 1 Encounter Details [...] on file Legal Sex Female 9:31 AM 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
--- OUTSIDE RECORDS SUMMARY | 2024-03-01 06:12 | XMS_ITS | Encounter Summary ---
Author Organization [facility] Healthcare Address [address] [place] [address] Care Team Providers Care B2B Appointment Setter Name Role Phone Angie Riddle MD Unavailable [phone] Luisa Mitchell DO Primary Care Provider [phone] Reason for Visit * Diagnostic Imaging (Routine) - Canceled Specialty Diagnoses / Procedures Referred By Viridiana oconnor Referred To Contact Diagnoses Arthralgia of both hands Procedures XR Foot Right 2 Views Renetta Geller MD [address] [facility] [address] [place] [address] Phone: tel: fax: [address] [address] Referral ID Status Reason Start Date Expiration Date V isits Requested Visits Authorized [id number] Canceled 09/27/2023 10/26/2024 1 1 Encounter Details Date Type Department Care Team (Latest Contact Info) Description 09/27/2023 2:54 PM CDT - 09/27/2023 11:59 PM CDT Hospital Encounter [facility] - Imaging [address] [place] [address] Arthralgia of both hands Discharge [...] on file Legal Sex Female 9:31 AM COUTURIERE Gender Identity Not on file Sexual Orientation [...] hands documented in this encounter Care Teams B2B Appointment Setter Relationship Specialty Start Date End Date Luisa Mitchell DO [address] [place], [place] [address] PCP - General Internal Medicine 08/11/22 Angie Riddle MD [address] [place] [address] Gynecology 08/19/16 documented as of this encounter
--- OUTSIDE RECORDS SUMMARY | 2024-03-01 06:12 | XMS_ITS | Encounter Summary ---
Author Organization [facility] Healthcare Address [address] [place] [address] Care Team Providers Care Med Surg Nurse Name Role Phone Angie Riddle MD Unavailable [phone] Luisa Mitchell DO Primary Care Provider [phone] Reason for Visit * Auth/Cert (Routine) Specialty Diagnoses / Procedures Referred By Viridiana t Referred To Contact Diagnoses SSS (sick sinus syndrome) (CMS/HCC) (HCC) SSS (sick sinus syndrome) (CMS/HCC) (HCC) [I49.5] Procedures HI REMVL PERM PM PLS GEN W/REPL PLSE GEN 2 LEAD SYS REMOVE/REPLACE PACEMAKER (PPM) DUAL LEAD SYSTEM [id number] Arnold Stout III, MD [address] [address] Phone: tel: fax: Referral ID Status Reason Start Date Expiration Date Visits Re quested Visits Authorized [id number] 11/08/2023 1 1 Encounter Details Date Type Department Care Team (Latest Contact Info) Description 11/15/2023 3:28 PM CDT Anesthesia Event [facility] [address] [place] [phone] Jonathan Plata MD [address] [place] [address] Anesthesia Record Procedure Summary Procedure Name Responsible Anesthesiologist Anesthesia Start Time Anesthesia Stop Time REMOVE/REPLACE PACEMAKER (PPM) DUAL LEAD SYSTEM [id number] Jonathan Plata MD 11/15/23 1528 11/15/23 1622 [...] on file Legal Sex Female 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 Gender Identity Not on file Sexual Orientation Not on file documented as of this encounter OR Notes * Anesthesia Postprocedure Evaluation - Jonathan Plata MD - 11/15/2023 4:57 PM CDT Patient: Francine Erwin Procedure Summary Date: 11/15/23 Room / Location: [facility] / [facility] Anesthesia Start: 1528 Anesthesia Stop: 162 Procedure: REMOVE/REPLACE PACEMAKER (PPM) DUAL LEAD SYSTEM [id number] Diagnosis: SSS (sick sinus syndrome) (CMS/HCC) (HCC) [...] female REMOVE/REPLACE PACEMAKER (PPM) DUAL LEAD SYSTEM [address] Pre-Op Diagnosis Codes: * SSS (sick sinus syndrome) (CMS/HCC) (HCC) [I49.5] HISTORY HPI Had breakfast at 0700, [place] with sugar free jam? 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 Chronic A lead is from 09-13-03. [facility]. Paroxysmal atrial fibrillation (CMS/HCC) ([facility]) PAF - Paroxysmal atrial fibrillation; Comments: [facility] 07/20/2013 - Sick sinus syndrome ([facility]) ([facility]) SSS; Comments: [facility] 07/20/2013 - Past Surgical History: Procedure [...] Medication protocol when under care of a TELEPHONE APPOINTMENT CLERK Planned anesthesia: MAC Induction: Induction: intravenous. Postoperative Plan: No plan for postoperative opioid use. No postoperative mechanical ventilation intended. Patient's planned disposition post procedure is Outpatient. Informed Consent: Discussed plan with TELEPHONE APPOINTMENT CLERK. Anesthesia plan and risks discussed with patient. [...] mg documented in this encounter Care Teams Med Surg Nurse Relationship Specialty Start Date End Date Luisa Mitchell DO [address] [place] [address] PCP - General Internal Medicine 08/11/22 Angie Riddle MD [address] [place] [address] Gynecology 08/19/16 documented as of this encounter
--- OUTSIDE RECORDS SUMMARY | 2024-03-01 06:12 | XMS_ITS | Encounter Summary ---
Author Organization [facility] Address [address] [facility] [address] [place] [address] Care Team Providers Care Vegetable Trimmer Name Role Phone Angie Riddle MD Unavailable [phone] Luisa Mitchell DO Primary Care Provider [phone] Encounter Details Date Type Department Care Team (Late st Contact Info) Description 08/12/2022 Telephone [facility] Cardiology [address] [facility] [address] [place] [address] Yoni Matamoros MD [address] [facility] [address] [place] [address] Social History Tobacco Use Types Packs/Day Years Used Date Smoking Tobacco: Former Cigarettes Q uit: 1985 Smokeless Tobacco: Never Alcohol Use Standard Drinks/Week Comments No 0 (1 standard drink = 0.6 oz pur e alcohol) Comments No Sex and Gender Information Value Date Recorded Sex Assigned at Not on file Legal Sex Female 9:31 AM GROCERY PACKER Gender Identity Not on file Sexual Orientation [...] on filedocumented in this encounter Care Teams Vegetable Trimmer Relationship Specialty Start Date End Date Luisa Mitchell DO [address] [place], [place] [phone] PCP - General Internal Medicine 08/11/22 Angie Riddle MD [address] [place] [address] Gynecology 08/19/16 documented as of this encounter
--- OUTSIDE RECORDS SUMMARY | 2024-03-01 06:12 | XMS_ITS | Encounter Summary ---
Author Organization [facility] Healthcare Address [address] [place] [address] Care Team Providers Care Project Portfolio Analyst Name Role Phone Angie Riddle MD Unavailable [phone] Luisa Mitchell DO Primary Care Provider [phone] Reason for Visit * Auth/Cert (Routine) Specialty Diagnoses / Procedures Referred By Viridiana oconnor Referred To Contact Diagnoses SSS (sick sinus syndrome) (CMS/HCC) (HCC) SSS (sick sinus syndrome) (CMS/HCC) (HCC) [I49.5] Procedures SD REMVL PERM PM PLS GEN W/REPL PLSE GEN 2 LEAD SYS REMOVE/REPLACE PACEMAKER (PPM) DUAL LEAD SYSTEM [address] Arnold Stout III, MD [address] [address] Phone: tel: fax: Referral ID Status Reason Start Date Expiration Date Visits Re quested Visits Authorized [id number] 11/08/2023 1 1 Encounter Details Date Type Department Care Team (Latest Contact Info) Description 11/15/2023 10:51 AM CDT - 11/15/2023 12:30 PM CDT Hospital Encounter 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 [facility] Arrhythmia Center Discharge Instructions [...] with you, please read the instructions and training personnel supervisor the monitor. Additional Instructions Extra Strength Tylenol may be taken every 6 hours as needed for pain. You should avoid strong magnetic currents (large electrical generators, arc welding). You can operate any home electrical appliances including microwave ovens. Notify the physician office at [phone], immediately if you develop abrupt dizziness or shortness of breath. If you feel there is an urgent matter, call 911 or go to the emergency room. Call the office at [phone] with any questions or concerns. Call to schedule a follow-up appointment / wound check. This should be done in the first 7-10 days following your procedure. IMPORTANT: DO NOT TAKE PRADAXA (DABIGATRAN) FOR 3 days AFTER THE PROCEDURE. YOU MAY RESUME ON 11/18/23 Arnold Stout III, M.D. Cardiac Electrophysiology [facility] Arrhythmia [facility] 11/08/2023 documented in this encounter Medications at [...] III, MD - 11/17/2023 9:36 PM CDT [facility] Arrhythmia Center: Focused H&P Patient ID [...] Date Noted SSS (sick sinus syndrome) (CMS/HCC) ([facility]) 11/08/2023 Paroxysmal atrial fibrillation (CMS/HCC) ([facility]) 09/07/2016 Overview Note: On chronic AC. 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 Chronic A lead is from 09-13-03. [facility]. Breast mass, left 08/19/2016 Allergies No [...] parameters and device programming: - RA Lead (#[id number]): Sensing 3.1 mV, Pacing threshold 1.2 V at 0.5 ms, Imp 532 Ohm - RV Lead (#[id number]): Sensing >8 mV, Pacing threshold 1.0 V at 0.5 ms, Imp 494 Ohm - Device: Medtronic Kylah S MRI SureScan pacemaker (#[id number]), programmed MVPR 60-120 ppm - Explanted device: Medtronic Jose COBOS (#[id number]) Conclusions: 1. Successful dual chamber pacemaker revision 2. Pulse generator change, pacemaker Recommendations: 1. Discharge home when stable 2. Oral antibiotics for five days 3. Hold pradaxa for 3 days. 4. Follow-up will be arranged in the Arrhythmia Center 7-10 days post-discharge Arnold Stout III, M.D. Cardiac Electrophysiology [facility] documented in this encounter Plan of Treatment [...] CDT) 11/15/2023 12:0 2 PM CDT Narrative [facility] - 11/15/2023 9:46 PM CDT Vent Rate: 65 bpm RR Interval: 921 msec SD Interval: 0 msec QRS Duration: 202 msec QT Interval: 486 msec QTC Interval: 497 msec P-R-T [place]: 0 - 102 - -66 degrees IMPRESSION: ELECTRONIC VENTRICULAR PACEMAKER ABNORMAL RHYTHM ECG Electronically Signed By: Rajendra Nunes MD Arnold Stout III, MD ECG ORDERABLES Fin al Result [facility] documented in this encounter Visit Diagnoses Diagnosis [...] 11/15/2023 documented in this encounter Care Teams Project Portfolio Analyst Relationship Specialty Start Date End Date Luisa Mitchell DO [address] [place], [place] [phone] PCP - General Internal Medicine 08/11/22 Angie Riddle MD [address] [place], [place] [phone] Gynecology 08/19/16 documented as of this encounter
--- OUTSIDE RECORDS SUMMARY | 2024-03-01 06:12 | XMS_ITS | Encounter Summary ---
Author Organization [facility] Healthcare Address [address] [place] [address] Care Team Providers Care Marine Services Technician Name Role Phone Angie Riddle MD Unavailable Luisa Mitchell DO Primary Care Provider [phone] Reason for Visit * Cardiology (Routine) - Closed Specialty Diagnoses / Procedures Referred By Viridiana oconnor Referred To Contact Diagnoses SSS (sick sinus syndrome) (CMS/HCC) ([facility]) Procedures DEVICE CHECK - REMOTE Yoni Matamoros MD [address] [facility] [address] [place] [address] Phone: tel: fax: [facility] Referral ID Status Reason Start Date Expiration Date Visits Re quested Visits Authorized [id number] Closed 06/26/2021 12/26/2022 1 1 Encounter Details Date Type Department Care Team (Latest Contact Info) Description 01/25/2023 9:30 AM PLASTIC PARTS FABRICATOR TRIMMER Ancillary Procedure [facility] Cardiology [address] [facility] [address] [place] [address] Pacemaker (Primary Dx); SSS (sick sinus syndrome) [...] on file Legal Sex Female 9:31 AM PLASTIC PARTS FABRICATOR TRIMMER Gender Identity Not on file Sexual Orientation Not on file documented as of this encounter Plan of Treatment Not on file documented as of this encounter Procedures Procedure Name Priority Date/Time Associated Diagnosis Comments DEVICE CHECK - REMOTE Routine 01/25/2023 8:46 AM PLASTIC PARTS FABRICATOR TRIMMER SSS (sick sinus syndrome) (CMS/HCC) (HCC) documented in this encounter Results * DEVICE CHECK - REMOTE (01/25/2023 8:46 AM PLASTIC PARTS FABRICATOR TRIMMER) Anatomical Region Laterality Modality Other Narrative 02/02/2023 10:20 AM PLASTIC PARTS FABRICATOR TRIMMER Table formatting from the original result was [...] ??to SARMAD Episodes last 90 days/Comments: AF [place] 16.9 %, longest duration > 48 hours [...] dysfunction documented in this encounter Care Teams Marine Services Technician Relationship Specialty Start Date End Date Luisa Mitchell DO [address] [place] [address] PCP - General Internal Medicine 08/11/22 Angie Riddle MD [address] [place] [address] Gynecology 08/19/16 documented as of this encounter
--- OUTSIDE RECORDS SUMMARY | 2024-03-01 06:12 | XMS_ITS | Encounter Summary ---
Author Organization [facility] Address [address] [place] [address] Phone Care Team Providers Care Fusion Operator Name Role Phone Angie Riddle MD Unavailable [phone] Luisa Mitchell DO Primary Care Provider [phone] Reason for Referral * Diagnostic Imaging (Routine) - Closed Specialty Diagnoses / Procedures Referred By Viridiana oconnor Referred To Contact Diagnoses Mass of upper outer quadrant of right breast Procedures Diagnostic Mammogram Right W Puneet Qi Alcala NP Phone: tel: fax: [address] [address] Referral ID Status Reason Start Date Expiration Date Visits Re quested Visits Authorized [id number] Closed 12/08/2022 01/07/2024 1 1 Reason for Visit * Reason Comments New Patient * Consultation (Routine) - Closed Specialty Diagnoses / Procedures Referred By Viridiana oconnor Referred To Contact Surgical Oncology Diagnoses Mass of upper outer quadrant of right breast Angie Riddle MD [address] [address] Phone: tel: fax: [facility] (All Locations) Referral ID Status Reason Start Date Expiration Date V isits Requested Visits Authorized [id number] Closed Specialty Services Required 11/26/2022 12/26/2023 1 1 Encounter Details Date Type Department Care Team (Late st Contact Info) Description 12/08/2022 10:00 AM CDT Office Visit [facility] Surgery [address] [place] [address] Qi Alcala NP [address] [facility] [address] [place] [address] Mass of upper outer quadrant of right [...] on file Legal Sex Female 9:31 AM PIPE LINE 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 Chronic A lead is from 09-13-03. [facility]. Paroxysmal atrial fibrillation (CMS/HCC) ([facility]) PAF - Paroxysmal atrial fibrillation; Comments: [facility] 07/20/2013 - Sick sinus syndrome (CMS/HCC) (HCC) SSS; Comments: [facility] 07/20/2013 - Past Surgical History: Procedure [...] PLAN: Care will obtain her imaging at [facility] once they have been finalized I will call and discuss the results. We will move forward with the plan of care that time. Qi Alcala NP Portions of this note were dictated using [employer] speech recognition software. Please excuse any automatic coin machine mechanic errors. mamm Cosigned by Katarina Akhtar MD PhD at 12/08/2022 4:27 PM CDT documented in this encounter Plan of Treatment Not on file documented as of this encounter Results * Diagnostic Mammogram Right W Puneet (01/04/2023 1:47 PM PIPE LINE MAINTENANCE SUPERVISOR) Anatomical Region Laterality Modality Breast Right Mammography 01/04/2023 2:29 PM PIPE LINE MAINTENANCE SUPERVISOR Impressions 01/04/2023 2:30 PM PIPE LINE MAINTENANCE SUPERVISOR No mammographic or sonographic evidence of malignancy in the RIGHT breast. OVERALL FINAL ASSESSMENT: BI-RADS Category 1: Negative. RECOMMENDATION: Annual screening mammography is recommended. Dictated by: Salvador Vaughn M.D. The radiology attending physician has personally reviewed this study, and had reviewed and/or edited this written report and agrees with it. Electronically signed by: Angie Richards M.D. Narrative 01/04/2023 2:30 PM PIPE LINE MAINTENANCE SUPERVISOR EXAMINATION: RIGHT UNILATERAL DIGITAL DIAGNOSTIC MAMMOGRAM AND [...] signed by: Angie Richards M.D. Qi Alcala POT LINING SUPERVISOR IMG MAMMO PROCEDURES Final Result documented in this encounter Visit Diagnoses Diagnosis Mass of upper outer quadrant of right breast- Primary Mass of upper outer quadrant of right breast documented in this encounter Orders Outpatient Referral Count Last Ordered Date Fir st Ordered Date AMB REFERRAL TO SURGICAL ONCOLOGY 1 023 documented in this encounter Care Teams Fusion Operator Relationship Specialty Start Date End Date Luisa Mitchell DO [address] [place], [place] [id number] PCP - General Internal Medicine 08/11/22 Angie Riddle MD [address] [place] [address] Gynecology 08/19/16 documented as of this encounter
--- OUTSIDE RECORDS SUMMARY | 2024-03-01 06:12 | XMS_ITS | Encounter Summary ---
Author Organization [facility] Address [address] [place] [address] Care Team Providers Care Aquatic Director Name Role Phone Angie Riddle MD Unavailable [phone] Luisa Mitchell DO Primary Care Provider [phone] Reason for Visit * Diagnostic Imaging (Routine) - Closed Specialty Diagnoses / Procedures Referred By Viridiana oconnor Referred To Contact Procedures Breast Imaging US Outside Reference Miscellaneous, Not In File Referral ID Status Reason Start Date Expiration Date Visits Re quested Visits Authorized [id number] Closed 12/18/2022 01/17/2024 1 1 Encounter Details [...] on file Legal Sex Female 9:31 AM LAUNDRY PRESSER Gender Identity Not on file Sexual Orientation [...] on filedocumented in this encounter Care Teams Aquatic Director Relationship Specialty Start Date End Date Luisa Mitchell DO [address] [place] [address] PCP - General Internal Medicine 08/11/22 Angie Riddle MD [address] [place] [address] Gynecology 08/19/16 documented as of this encounter
--- OUTSIDE RECORDS SUMMARY | 2024-03-01 06:12 | XMS_ITS | Encounter Summary ---
Author Organization [facility] Address [address] [place] [address] Phone Care Team Providers Care Acds Block 1 Operator Name Role Phone Angie Riddle MD Unavailable [phone] Luisa Mitchell DO Primary Care Provider [phone] Encounter Details Date Type Department Care Team (Late st Contact Info) Description 12/15/2022 Telephone [facility] Surgery [address] [facility] 5th [place] [address] [place] [address] Edna Garcia Social History Tobacco Use Types Packs/Day Years Used Date Smoking Tobacco: Former Cigarettes Q uit: 1985 Smokeless Tobacco: Never Alcohol Use Standard Drinks/Week Comments No 0 (1 standard drink = 0.6 oz pur e alcohol) Comments No Sex and Gender Information Value Date Recorded Sex Assigned at Not on file Legal Sex Female 9:31 AM AUTO 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
--- OUTSIDE RECORDS SUMMARY | 2024-03-01 06:13 | XMS_ITS | Encounter Summary ---
Author Organization [facility] Address [address] [facility] [address] [place] [address] Care Team Providers Care Machine Castings Plasterer Name Role Phone Angie Riddle MD Unavailable [phone] Hardy Morgan MD PhD Primary Care Provider + Reason for Visit * Reason Onset Date Comments Pharmacy switch 01/13/2021 Encounter Details Date Type Department Care Team (Late st Contact Info) Description 01/13/2021 Telephone [facility] Medical [facility] Cardiology [address] [facility] [address] [place] [address] Yoni Matamoros MD [facility] [address] [place] [address] Pharmacy switch Social History Tobacco Use Types Packs/Day Years Used Date Smoking Tobacco: Former Cigarettes Q uit: 1985 Smokeless Tobacco: Never Alcohol Use Standard Drinks/Week Comments No 0 (1 standard drink = 0.6 oz pur e alcohol) Comments No Sex and Gender Information Value Date Recorded Sex Assigned at Not on file Legal Sex Female 9:31 AM LOGISTICS LEAD Gender Identity Not on file Sexual [...] Kavita Roa LPN - 01/14/2021 4:38 PM LOGISTICS LEAD Faxed over Rx at this time. STICS LEAD * Telephone Encounter - David Darnell - 01/13/2021 1:30 PM CST Pt called today wanting to switch the pharmacy for her Pradaxa. Pt wants her script to go to: [email or web address] [address] [place]: [phone] Having difficulties pulling this up for e-scribe. Not sure it pt needs a hard copy of script sent with signature, and then she sends it out? Can you please assist with this STICS LEAD documented in this encounter Plan of Treatment Not on file documented as of this encounter Visit Diagnoses Not on filedocumented in this encounter Discontinued Medications Medication Sig Discontinue Reason Start Date End Da te dabigatran (Pradaxa) 150 mg capsule Take 1 capsule (150 mg total) by mouth 2 (two) times a day Reorder 07/10/2020 01/14/2021 documented as of this encounter Care Teams Machine Castings Plasterer Relationship Specialty Start Date End Date Hardy Morgan MD PhD [address] [facility] [address] [facility] [address] [place] [address] PCP - General 12/02/16 08/10/22 Angie Riddle MD [address] [place] [address] Gynecology 08/19/16 documented as of this encounter
--- OUTSIDE RECORDS SUMMARY | 2024-03-01 06:13 | XMS_ITS | Encounter Summary ---
Author Organization [facility] Address [address] [facility] [address] [place] [address] Care Team Providers Care Senior Property Manager Name Role Phone Angie Riddle MD Unavailable [phone] Hardy Morgan MD PhD Primary Care Provider + Reason for Referral * Cardiology (Routine) - Closed Specialty Diagnoses / Procedures Referred By Contac t Referred To Contact Diagnoses SSS (sick sinus syndrome) (CMS/HCC) (HCC) Procedures DEVICE CHECK - REMOTE Yoni Matamoros MD [address] [address] Phone: tel: fax: [facility] Medical [facility] Referral ID Status Reason Start Date Expiration Date Visits Re quested Visits Authorized [id number] Closed 06/26/2021 12/26/2022 1 1 * Cardiology (Routine) - Closed Specialty Diagnoses / Procedures Referred By Contac t Referred To Contact Diagnoses SSS (sick sinus syndrome) (CMS/HCC) (HCC) Procedures DEVICE CHECK - REMOTE Yoni Matamoros MD [address], [place] [address] Phone: tel: fax: [facility] Medical [facility] Referral ID Status Reason Start Date Expiration Date Visits Re quested Visits Authorized [id number] Closed 06/26/2021 12/26/2022 1 1 * Cardiology (Routine) - Closed Specialty Diagnoses / Procedures Referred By Contac t Referred To Contact Diagnoses SSS (sick sinus syndrome) (CMS/HCC) (HCC) Procedures DEVICE CHECK - REMOTE Yoni Matamoros MD [address] [place] [id number] Phone: tel: fax: [facility] Medical [facility] Referral ID Status Reason Start Date Expiration Date Visits Re quested Visits Authorized [id number] Closed 06/26/2021 12/26/2022 1 1 * Cardiology (Routine) - Closed Specialty Diagnoses / Procedures Referred By Contac t Referred To Contact Diagnoses SSS (sick sinus syndrome) (CMS/HCC) (HCC) Procedures DEVICE CHECK - REMOTE Yoni Matamoros MD [address] [place] [address] Phone: tel: fax: [facility] Referral ID Status Reason Start Date Expiration Date Visits Re quested Visits Authorized [id number] Closed 06/26/2021 12/26/2022 1 1 * Cardiology (Routine) - Closed Specialty Diagnoses / Procedures Referred By Contac t Referred To Contact Diagnoses SSS (sick sinus syndrome) (CMS/HCC) (HCC) Procedures DEVICE CHECK - REMOTE Yoni Matamoros MD [address] [place] [address] Phone: tel: fax: [facility] Medical Group Referral ID Status Reason Start Date Expiration Date Visits Re quested Visits Authorized [id number] Closed 06/26/2021 12/26/2022 1 1 Encounter Details Date Type Department Care Team (Late st Contact Info) Description 06/26/2021 Orders Only [facility] Group Cardiology [address] [facility] [address] [place] [address] Yoni Matamoros MD [address] [facility] [address] [place] [address] SSS (sick sinus syndrome) (CMS/HCC) (HCC) (Primary Dx) Social History Tobacco Use Types Packs/Day Years Used Date Smoking Tobacco: Former Cigarettes Q uit: 1985 Smokeless Tobacco: Never Alcohol Use Standard Drinks/Week Comments No 0 (1 standard drink = 0.6 oz pur e alcohol) Comments No Sex and Gender Information Value Date Recorded Sex Assigned at Not on file Legal Sex Female 9:31 AM PERSONAL CARE AIDE Gender Identity Not on file Sexual Orientation Not on file documented as of this encounter Plan of Treatment Not on file documented as of this encounter Results * DEVICE CHECK - REMOTE (01/25/2023 8:46 AM PERSONAL CARE AIDE) Anatomical Region Laterality Modality Other Narrative 02/02/2023 10:20 AM PERSONAL CARE AIDE Table formatting from the original result was [...] ??to SARMAD Episodes last 90 days/Comments: AF [place] 16.9 %, longest duration > 48 hours [...] to SARMAD Episodes last 90 days/Comments: AF [place] 7.9 %, there were multiple stored episodes [...] to SARMAD Episodes last 90 days/Comments: AF [place] 6.6 %, current episode currently in progress [...] DEVICE CHECK - REMOTE (02/16/2022 8:27 AM PERSONAL CARE AIDE) Anatomical Region Laterality Modality Other Narrative 02/16/2022 2:08 PM PERSONAL CARE AIDE Table formatting from the original result was [...] to SARMAD Episodes last 90 days/Comments: AF [place] 5.9 %, longest duration of 17 hours [...] to SARMAD Episodes last 90 days/Comments: AF [place] 3.8 %, longest duration 14 hours and [...] dysfunction documented in this encounter Care Teams Senior Property Manager Relationship Specialty Start Date End Date Hardy Morgan MD PhD [address] [facility] [address] [place] [address] PCP - General 12/02/16 08/10/22 Angie Riddle MD [address] [place] [address] Gynecology 08/19/16 documented as of this encounter
--- OUTSIDE RECORDS SUMMARY | 2024-03-01 06:13 | XMS_ITS | Encounter Summary ---
Author Organization [facility] Address [address] [facility] [address] [place] [address] Care Team Providers Care Crepe Maker Name Role Phone Angie Riddle MD Unavailable [phone] Hardy Morgan MD PhD Primary Care Provider + Reason for Visit * Reason Comments Follow-up Encounter Details Date Type Department Care Team (Late st Contact Info) Description 03/31/2017 9:45 AM FLUORESCENT LAMP REPLACER Office Visit [facility] [address] [facility] [address] [place] [address] Doug Hood MD [address] [facility] [address] [place] [id number] Breast mass, left (Primary Dx) Social History Tobacco Use Types Packs/Day Years Used Date Smoking Tobacco: Former Cigarettes Q uit: 1985 Smokeless Tobacco: Never Alcohol Use Standard Drinks/Week Comments No 0 (1 standard drink = 0.6 oz pur e alcohol) Comments No Sex and Gender Information Value Date Recorded Sex Assigned at Not on file Legal Sex Female 9:31 AM FLUORESCENT LAMP REPLACER Gender Identity Not on file Sexual Orientation Not on file documented as of this encounter Last Filed Vital Signs Vital Sign Reading Time Taken Comments Blood Pressure 139/88 03/31/2017 9:59 AM FLUORESCENT LAMP REPLACER Pulse 60 03/31/2017 9:59 AM FLUORESCENT LAMP REPLACER Temperature - - Respiratory Rate - - Oxygen Saturation - - Inhaled Oxygen Concentration - - Weight 52.2 kg (115 lb) 03/31/2017 9:59 AM FLUORESCENT LAMP REPLACER Height 163.8 cm (5' 4.5 ) 03/31/2017 9:59 AM FLUORESCENT LAMP REPLACER Body Mass Index 19.43 03/31/2017 9:59 AM FLUORESCENT LAMP REPLACER documented in this encounter Progress Notes * Doug Hood MD - 03/31/2017 9:45 AM CST [facility] Medical Group Dr. Herminio Hood ~ Luisa Claudio [address], [facility] [address] [place] [address] ? [email or web address] PATIENT NAME: Francine Erwin : 1940 Patient [...] ultrasound of left breast on 03/05/2017 at [facility]. Findings: bilateral mammograms-breasts are heterogeneously dense,biopsy marker [...] RONY 07/20/2013 - ??? Hypertension Hypertension; Comments: [facility] 07/20/2013 - ??? 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 Chronic A lead is from 09-13-03. [facility]. ??? Paroxysmal atrial fibrillation (CMS/HCC) PAF - Paroxysmal atrial fibrillation; Comments: [facility] 07/20/2013 - ??? Sick sinus syndrome (CMS/HCC) SSS; Comments: [facility] 07/20/2013 - Past Surgical History: Procedure [...] breast changes or concerns. Doug Hood MD RESCENT LAMP REPLACER documented in this encounter Plan of Treatment Not on file documented as of this encounter Visit Diagnoses Diagnosis Breast mass, left- Primary Lump or mass in breast documented in this encounter Care Teams Crepe Maker Relationship Specialty Start Date End Date Hardy Morgan MD PhD [address] [facility] [address] [place] [address] PCP - General 12/02/16 08/10/22 Angie Riddle MD [address] [place] [address] Gynecology 08/19/16 documented as of this encounter
--- OUTSIDE RECORDS SUMMARY | 2024-03-01 06:13 | XMS_ITS | Encounter Summary ---
Author Organization [facility] Address [address] [facility] [address] [place] [address] Care Team Providers Care Melon Packer Name Role Phone Angie Riddle MD Unavailable Hardy Morgan MD PhD Primary Care Provider + Encounter Details Date Type Department Care Team (Late st Contact Info) Description 03/05/2017 Orders Only [facility] Health Information Management [address] [place] [address] Scanning, Provider Social History Tobacco Use Types Packs/Day Years Used Date Smoking Tobacco: Former Alcohol Use Standard Drinks/Week Comments No 0 (1 standard drink = 0.6 oz pur e alcohol) Comments No Sex and Gender Information Value Date Recorded Sex Assigned at Not on file Legal Sex Female 9:31 AM WEDDING TRANSPORTATION DRIVER Gender Identity Not on file Sexual [...] on filedocumented in this encounter Care Teams Melon Packer Relationship Specialty Start Date End Date Hardy Morgan MD PhD [address] [place] [address] PCP - General 12/02/16 08/10/22 Angie Riddle MD [address] [address] Gynecology 08/19/16 documented as of this encounter
--- OUTSIDE RECORDS SUMMARY | 2024-03-01 06:13 | XMS_ITS | Encounter Summary ---
Author Organization [facility] Address [address] [facility] [address] [place] [address] Care Team Providers Care Cable Repairer Name Role Phone Angie Riddle MD Unavailable [phone] Hardy Morgan MD PhD Primary Care Provider + Reason for Visit * (Routine) - Closed Specialty Diagnoses / Procedures Referred By Viridiana oconnor Referred To Contact Diagnoses SSS (sick sinus syndrome) (CMS/HCC) ([facility]) Procedures DEVICE CHECK - REMOTE Yoni Matamoros MD [address] [facility] [address], [place] [address] Phone: tel: fax: [facility] Referral ID Status Reason Start Date Expiration Date Visits Re quested Visits Authorized [id number] Closed 03/08/2019 09/16/2020 1 1 Encounter Details Date Type Department Care Team (Latest Contact Info) Description 03/11/2020 10:15 AM BUS ANALYST Ancillary Procedure [facility] Medical [facility] Cardiology [address] [facility] [address] [place] [address] SSS (sick sinus syndrome) ([facility]) Social History Tobacco Use Types Packs/Day Years Used Date Smoking Tobacco: Former Cigarettes Q uit: 1985 Smokeless Tobacco: Never Alcohol Use Standard Drinks/Week Comments No 0 (1 standard drink = 0.6 oz pur e alcohol) Comments No Sex and Gender Information Value Date Recorded Sex Assigned at Not on file Legal Sex Female 9:31 AM BUS ANALYST Gender Identity Not on file Sexual Orientation Not on file documented as of this encounter Plan of Treatment Not on file documented as of this encounter Procedures Procedure Name Priority Date/Time Associated Diagnosis Comments DEVICE CHECK - REMOTE Routine 03/11/2020 8:18 AM BUS ANALYST SSS (sick sinus syndrome) (CMS/HCC) documented in this encounter Results * DEVICE CHECK - REMOTE (03/11/2020 8:18 AM BUS ANALYST) Anatomical Region Laterality Modality Other Narrative 03/12/2020 8:13 PM BUS ANALYST This patient received a Medtronic Pacemaker. ??They [...] to SARMAD Episodes last 90 days/Comments: AF [place] 6.7 %, there were numerous episodes classified [...] dysfunction documented in this encounter Care Teams Cable Repairer Relationship Specialty Start Date End Date Hardy Morgan MD PhD [address] [facility] [address] [place] [address] PCP - General 12/02/16 08/10/22 Angie Riddle MD [address] [place] [address] Gynecology 08/19/16 documented as of this encounter
--- OUTSIDE RECORDS SUMMARY | 2024-03-01 06:13 | XMS_ITS | Encounter Summary ---
Author Organization [facility] Address [address] [facility] [address] [place] [address] Care Team Providers Care Air Bag Stripper Name Role Phone Angie Riddle MD Unavailable [phone] Hardy Morgan MD PhD Primary Care Provider + Reason for Visit * Cardiology (Routine) - Closed Specialty Diagnoses / Procedures Referred By Viridiana oconnor Referred To Contact Diagnoses SSS (sick sinus syndrome) (CMS/HCC) (HCC) Procedures DEVICE CHECK - REMOTE Yoni Matamoros MD [address] [facility] [address], [place] [address] Phone: tel: fax: [facility] Referral ID Status Reason Start Date Expiration Date Visits Re quested Visits Authorized [id number] Closed 02/28/2020 03/29/2021 1 1 Encounter Details Date Type Department Care Team (Latest Contact Info) Description 06/30/2021 8:30 AM CDT Ancillary Procedure [facility] Medical [facility] Cardiology [address] [facility] [address] [place] [address] SSS (sick sinus syndrome) (CMS/HCC) ([facility]); Pacemaker Social History Tobacco Use Types Packs/Day Years Used Date Smoking Tobacco: Former Cigarettes Q uit: 1985 Smokeless Tobacco: Never Alcohol Use Standard Drinks/Week Comments No 0 (1 standard drink = 0.6 oz pur e alcohol) Comments No Sex and Gender Information Value Date Recorded Sex Assigned at Not on file Legal Sex Female 9:31 AM MANAGER COMPETITIVE INTELLIGENCE Gender Identity Not on file Sexual Orientation [...] to SARMAD Episodes last 90 days/Comments: AF [place] 5.0 %, the the longest most recent [...] situ documented in this encounter Care Teams Air Bag Stripper Relationship Specialty Start Date End Date Hardy Morgan MD PhD [address] [place] [address] PCP - General 12/02/16 08/10/22 Angie Riddle MD [address] [place] [address] Gynecology 08/19/16 documented as of this encounter
--- OUTSIDE RECORDS SUMMARY | 2024-03-01 06:13 | XMS_ITS | Encounter Summary ---
Author Organization [facility] Medical [facility] Address [address] [place] [address] Care Team Providers Care Computational Sciences Professor Name Role Phone Angie Riddle MD Unavailable [phone] Hardy Morgan MD PhD Primary Care Provider + Reason for Visit * (Routine) - Closed Specialty Diagnoses / Procedures Referred By Virdiiana oconnor Referred To Contact Diagnoses SSS (sick sinus syndrome) (CMS/HCC) ([facility]) Procedures DEVICE CHECK - REMOTE Nilton Cho MD Phone: tel: fax: [facility] Referral ID Status Reason Start Date Expiration Date Visits Re quested Visits Authorized [id number] Closed 09/06/2018 03/17/2020 1 1 Encounter Details Date Type Department Care Team (Latest Contact Info) Description 09/12/2018 11:00 AM CDT Ancillary Procedure [facility] Medical [facility] Cardiology [address] [place] [address] SSS (sick sinus syndrome) ([facility]); Pacemaker Social History [...] sent with transmission results Francine Gentile RN, [facility], Arrhythmia Device Specialist documented in this encounter Plan of Treatment Not on file documented as of this encounter Procedures Procedure Name Priority Date/Time Associated Diagnosis Comments DEVICE CHECK - REMOTE Routine 09/12/2018 1:45 PM CDT SSS (sick sinus syndrome) ([facility]) documented in this encounter Results * DEVICE [...] situ documented in this encounter Care Teams Computational Sciences Professor Relationship Specialty Start Date End Date Hardy Morgan MD PhD [address] [place] [address] PCP - General 12/02/16 08/10/22 Angie Riddle MD [address] [place], [place] [id number] Gynecology 08/19/16 documented as of this encounter
--- OUTSIDE RECORDS SUMMARY | 2024-03-01 06:13 | XMS_ITS | Encounter Summary ---
Author Organization [facility] Medical Group Address [address] [place] [address] Care Team Providers Care Doctor Of Optometry Name Role Phone Angie Riddle MD Unavailable [phone] Hardy Morgan MD PhD Primary Care Provider + Encounter Details Date Type Department Care Team (Latest Contact Info) Description 06/13/2018 11:00 AM CDT Ancillary Procedure [facility] Medical [facility] Cardiology [address] [place] [address] SSS (sick sinus syndrome) (CMS/HCC) Social History Tobacco Use Types Packs/Day Years Used Date Smoking Tobacco: Former Cigarettes Q uit: 1985 Smokeless Tobacco: Never Alcohol Use Standard Drinks/Week Comments No 0 (1 standard drink = 0.6 oz pur e alcohol) Comments No Sex and Gender Information Value Date Recorded Sex Assigned at Not on file Legal Sex Female 9:31 AM TECHNICAL INTERN Gender Identity Not on file Sexual [...] to SARMAD Episodes last 90 days/Comments: AF [place] 3.6 %, there were 123 episodes classified [...] dysfunction documented in this encounter Care Teams Doctor Of Optometry Relationship Specialty Start Date End Date Hardy Morgan MD PhD [address] [facility] [address] [place] [address] PCP - General 12/02/16 08/10/22 Angie Riddle MD [address] [place] [address] Gynecology 08/19/16 documented as of this encounter
--- OUTSIDE RECORDS SUMMARY | 2024-03-01 06:13 | XMS_ITS | Encounter Summary ---
Author Organization [facility] Medical [facility] Address [address] [facility] [address] [place] [address] Care Team Providers Care Medical Stenographer Name Role Phone Angie Riddle MD Unavailable [phone] Hardy Morgan MD PhD Primary Care Provider + Reason for Visit * Reason Comments Device Check and OV with Dr. Jayesh franklin * (Routine) - Canceled Specialty Diagnoses / Procedures Referred By Contac t Referred To Contact Diagnoses Sick sinus syndrome (CMS/HCC) (HCC) Procedures DEVICE CHECK - IN OFFICE Nilton Cho MD Phone: tel: fax: [facility] Referral ID Status Reason Start Date Expiration Date V isits Requested Visits Authorized [id number] Canceled 04/15/2018 10/25/2019 1 1 Encounter Details Date Type Department Care Team (Latest Contact Info) Description 04/18/2018 9:15 AM LEAN SIX SIGMA BLACK BELT Ancillary Procedure [facility] [place] [address] [place] [address] Sick sinus syndrome (CMS/HCC); Pacemaker; [...] on file Legal Sex Female 9:31 AM LEAN SIX SIGMA BLACK BELT Gender Identity Not on file Sexual Orientation [...] Remote Transmission Schedule form. Jessica Real RN SIX SIGMA BLACK BELT documented in this encounter Plan of Treatment Not on file documented as of this encounter Procedures Procedure Name Priority Date/Time Associated Diagnosis Comments DEVICE CHECK - IN OFFICE Routine 04/18/2018 9:33 AM LEAN SIX SIGMA BLACK BELT Sick sinus syndrome (CMS/HCC) documented in this encounter Results * DEVICE CHECK - IN OFFICE (04/18/2018 9:33 AM LEAN SIX SIGMA BLACK BELT) Anatomical Region Laterality Modality Other Narrative 04/19/2018 10:30 AM LEAN SIX SIGMA BLACK BELT This patient received a Medtronic Adapta DDD [...] fibrillation documented in this encounter Care Teams Medical Stenographer Relationship Specialty Start Date End Date Hardy Morgan MD PhD [address] [facility] [address] [place] [address] PCP - General 12/02/16 08/10/22 Angie Riddle MD [address] [address] Gynecology 08/19/16 documented as of this encounter
--- OUTSIDE RECORDS SUMMARY | 2024-03-01 06:13 | XMS_ITS | Encounter Summary ---
Author Organization [facility] Medical [facility] Address [address] [place] [address] Care Team Providers Care Senior Procurement Manager Name Role Phone Angie Riddle MD Unavailable [phone] Hardy Morgan MD PhD Primary Care Provider + Reason for Visit * Cardiology (Routine) - Closed Specialty Diagnoses / Procedures Referred By Viridiana oconnor Referred To Contact Diagnoses SSS (sick sinus syndrome) (CMS/HCC) (HCC) Procedures DEVICE CHECK - REMOTE Yoni Matamoros MD [address] [facility] [address] [place] [address] Phone: tel: fax: [facility] Medical Group Referral ID Status Reason Start Date Expiration Date Visits Re quested Visits Authorized [id number] Closed 02/28/2020 03/29/2021 1 1 Encounter Details Date Type Department Care Team (Latest Contact Info) Description 09/23/2020 9:45 AM CDT Ancillary Procedure [facility] Medical [facility] Cardiology [address] [place] [address] SSS (sick sinus syndrome) (CMS/HCC) ([facility]); Cardiac pacemaker in situ; Automatic implantable cardiac [...] on file Legal Sex Female 9:31 AM BEAUTY CULTURE TEACHER Gender Identity Not on file Sexual Orientation [...] to SARMAD Episodes last 90 days/Comments: AF [address] 4.2 %, the longest episode lasted 21 [...] situ documented in this encounter Care Teams Senior Procurement Manager Relationship Specialty Start Date End Date Hardy Morgan MD PhD [address] [place] [address] PCP - General 12/02/16 08/10/22 Angie Riddle MD [address] [place] [address] Gynecology 08/19/16 documented as of this encounter
--- OUTSIDE RECORDS SUMMARY | 2024-03-01 06:13 | XMS_ITS | Encounter Summary ---
Author Organization [facility] Medical [facility] Address [address] [place] [address] Care Team Providers Care Microbiology Laboratory Manager Name Role Phone Angie Riddle MD Unavailable [phone] Hardy Morgan MD PhD Primary Care Provider + Reason for Visit * (Routine) - Closed Specialty Diagnoses / Procedures Referred By Viridiana oconnor Referred To Contact Diagnoses SSS (sick sinus syndrome) (CMS/HCC) ([facility]) Procedures DEVICE CHECK - REMOTE Yoni Matamoros MD [address] [facility] [address] [address] Phone: tel: fax: [facility] Referral ID Status Reason Start Date Expiration Date Visits Re quested Visits Authorized [id number] Closed 03/08/2019 09/16/2020 1 1 Encounter Details Date Type Department Care Team (Latest Contact Info) Description 12/11/2019 8:50 AM CDT Ancillary Procedure [facility] Medical [facility] Cardiology [address] [place] [address] SSS (sick sinus syndrome) ([facility]) Social History Tobacco Use Types Packs/Day Years Used Date Smoking Tobacco: Former Cigarettes Q uit: 1985 Smokeless Tobacco: Never Alcohol Use Standard Drinks/Week Comments No 0 (1 standard drink = 0.6 oz pur e alcohol) Comments No Sex and Gender Information Value Date Recorded Sex Assigned at Not on file Legal Sex Female 9:31 AM SEAMAN OFFICER Gender Identity Not on file Sexual [...] to SARMAD Episodes last 90 days/Comments: AF [place] 6.5 however the counters have not been [...] dysfunction documented in this encounter Care Teams Microbiology Laboratory Manager Relationship Specialty Start Date End Date Hardy Morgan MD PhD [address] [facility] [address] [place] [address] PCP - General 12/02/16 08/10/22 Angie Riddle MD [address] [address] Gynecology 08/19/16 documented as of this encounter
--- OUTSIDE RECORDS SUMMARY | 2024-03-01 06:13 | XMS_ITS | Encounter Summary ---
Author Organization [facility] Medical Group Address [address] [place] [address] Care Team Providers Care Sausage Stuffer Name Role Phone Angie Riddle MD Unavailable [phone] Hardy Morgan MD PhD Primary Care Provider + Reason for Visit * (Routine) - Closed Specialty Diagnoses / Procedures Referred By Viridiana oconnor Referred To Contact Diagnoses SSS (sick sinus syndrome) (CMS/HCC) ([facility]) Procedures DEVICE CHECK - IN OFFICE Yoni Matamoros MD [address] [facility] [address] [place] [address] Phone: tel: fax: [facility] Medical Group Referral ID Status Reason Start Date Expiration Date Visits Re quested Visits Authorized [id number] Closed 03/08/2019 09/16/2020 1 1 Encounter Details Date Type Department Care Team (Latest Contact Info) Description 08/12/2020 10:30 AM CDT Ancillary Procedure [facility] Medical [facility] Cardiology [address] [place] [address] SSS (sick sinus syndrome) (CMS/HCC); Cardiac pacemaker [...] on file Legal Sex Female 9:31 AM FABRIC STRETCHER Gender Identity Not on file Sexual Orientation [...] to SARMAD Episodes last 90 days/Comments: AF [place] 6.5 %, there were numerous AT/AF episodes [...] situ documented in this encounter Care Teams Sausage Stuffer Relationship Specialty Start Date End Date Hardy Morgan MD PhD [address] [place] [address] PCP - General 12/02/16 08/10/22 Angie Riddle MD [address] [place] [address] Gynecology 08/19/16 documented as of this encounter
--- OUTSIDE RECORDS SUMMARY | 2024-03-01 06:13 | XMS_ITS | Encounter Summary ---
Author Organization [facility] Address [address] [place] [address] Care Team Providers Care Edge Trimming Machine Operator Name Role Phone Angie Riddle MD Unavailable [phone] Hardy Morgan MD PhD Primary Care Provider + Reason for Referral * (Routine) - Closed Specialty Diagnoses / Procedures Referred By Contac t Referred To Contact Diagnoses SSS (sick sinus syndrome) (CMS/HCC) (HCC) Procedures DEVICE CHECK - IN OFFICE Yoni Matamoros MD [address], [place] [address] Phone: tel: fax: [facility] Medical [facility] Referral ID Status Reason Start Date Expiration Date Visits Re quested Visits Authorized [id number] Closed 03/08/2019 09/16/2020 1 1 ERTY CARETAKER * (Routine) - Closed Specialty Diagnoses / Procedures Referred By Contac t Referred To Contact Diagnoses SSS (sick sinus syndrome) (CMS/HCC) (HCC) Procedures DEVICE CHECK - REMOTE Yoni Matamoros MD [address], [place] [address] Phone: tel: fax: [facility] Medical [facility] Referral ID Status Reason Start Date Expiration Date Visits Re quested Visits Authorized [id number] Closed 03/08/2019 09/16/2020 1 1 ERTY CARETAKER * (Routine) - Closed Specialty Diagnoses / Procedures Referred By Contac t Referred To Contact Diagnoses SSS (sick sinus syndrome) (CMS/HCC) (HCC) Procedures DEVICE CHECK - REMOTE Yoni Matamoros MD [address] [facility] [address] [address] Phone: tel: fax: [facility] Referral ID Status Reason Start Date Expiration Date Visits Re quested Visits Authorized [id number] Closed 03/08/2019 09/16/2020 1 1 ERTY CARETAKER * (Routine) - Closed Specialty Diagnoses / Procedures Referred By Contac t Referred To Contact Diagnoses SSS (sick sinus syndrome) (CMS/HCC) (HCC) Procedures DEVICE CHECK - REMOTE Yoni Matamoros MD [address] [facility] [address] [address] Phone: tel: fax: [facility] Referral ID Status Reason Start Date Expiration Date Visits Re quested Visits Authorized [id number] Closed 03/08/2019 09/16/2020 1 1 ERTY CARETAKER * (Routine) - Closed Specialty Diagnoses / Procedures Referred By Contac t Referred To Contact Diagnoses SSS (sick sinus syndrome) (CMS/HCC) (HCC) Procedures DEVICE CHECK - REMOTE Yoni Matamoros MD [address] [facility] [address] [address] Phone: tel: fax: [facility] Referral ID Status Reason Start Date Expiration Date Visits Re quested Visits Authorized [id number] Closed 03/08/2019 09/16/2020 1 1 ERTY CARETAKER * (Routine) - Closed Specialty Diagnoses / Procedures Referred By Contac t Referred To Contact Diagnoses SSS (sick sinus syndrome) (CMS/HCC) (HCC) Procedures DEVICE CHECK - REMOTE Yoni Matamoros MD [address] [facility] [address] [place] [address] Phone: tel: fax: [facility] Referral ID Status Reason Start Date Expiration Date Visits Re quested Visits Authorized [id number] Closed 03/08/2019 09/16/2020 1 1 ERTY CARETAKER Encounter Details Date Type Department Care Team (Late st Contact Info) Description 03/08/2019 Orders Only [facility] Medical [facility] Cardiology [address] [place] [address] oYni Matamoros MD [address] [facility] [address] [place], [place] [id number] SSS (sick sinus syndrome) ([facility]) (Primary Dx) Social History Tobacco Use Types Packs/Day Years Used Date Smoking Tobacco: Former Cigarettes Q uit: 1985 Smokeless Tobacco: Never Alcohol Use Standard Drinks/Week Comments No 0 (1 standard drink = 0.6 oz pur e alcohol) Comments No Sex and Gender Information Value Date Recorded Sex Assigned at Not on file Legal Sex Female 9:31 AM PROPERTY CARETAKER Gender Identity Not on file Sexual Orientation [...] to SARMAD Episodes last 90 days/Comments: AF [place] 6.5 %, there were numerous AT/AF episodes [...] DEVICE CHECK - REMOTE (03/11/2020 8:18 AM PROPERTY CARETAKER) Anatomical Region Laterality Modality Other Narrative 03/12/2020 8:13 PM PROPERTY CARETAKER This patient received a Medtronic Pacemaker. ??They [...] to SARMAD Episodes last 90 days/Comments: AF [place] 6.7 %, there were numerous episodes classified [...] to SARMAD Episodes last 90 days/Comments: AF [place] 6.5 however the counters have not been [...] to SARMAD Episodes last 90 days/Comments: AF [place] 5.3 %, there were numerous episodes of [...] to SARMAD Episodes last 90 days/Comments: AF [place] 4.2 %, longest duration 15 hours and [...] DEVICE CHECK - REMOTE (04/06/2019 1:30 PM PROPERTY CARETAKER) Anatomical Region Laterality Modality Other Narrative 04/06/2019 3:58 PM PROPERTY CARETAKER This patient received a Medtronic Pacemaker. ??They [...] to SARMAD Episodes last 90 days/Comments: AF [place] 4.2 %, longest duration the 15 minutes [...] situ documented in this encounter Care Teams Edge Trimming Machine Operator Relationship Specialty Start Date End Date Hardy Morgan MD PhD [address] [facility] [address] [facility] [address] [place] [address] PCP - General 12/02/16 08/10/22 Angie Riddle MD [address] [place] [address] Gynecology 08/19/16 documented as of this encounter
--- OUTSIDE RECORDS SUMMARY | 2024-03-01 06:13 | XMS_ITS | Encounter Summary ---
Author Organization [facility] Address [address] [place] [address] Care Team Providers Care Kitchen Aide Name Role Phone Angie Riddle MD Unavailable [phone] Hardy Morgan MD PhD Primary Care Provider + Encounter Details Date Type Department Care Team (Late st Contact Info) Description 04/15/2018 Orders Only [facility] Cardiology [address] [facility] [address] [place] [address] Nilton Cho MD [address] [facility] [address] [place] [address] Sick sinus syndrome (CMS/HCC) (Primary Dx) Social History Tobacco Use Types Packs/Day Years Used Date Smoking Tobacco: Former Cigarettes Q uit: 1985 Smokeless Tobacco: Never Alcohol Use Standard Drinks/Week Comments No 0 (1 standard drink = 0.6 oz pur e alcohol) Comments No Sex and Gender Information Value Date Recorded Sex Assigned at Not on file Legal Sex Female 9:31 AM WIRE TWISTER Gender Identity Not on file Sexual Orientation Not on file documented as of this encounter Plan of Treatment Not on file documented as of this encounter Visit Diagnoses Diagnosis Sick sinus syndrome (CMS/HCC) (HCC)- Primary Sinoatrial node dysfunction documented in this encounter Care Teams Kitchen Aide Relationship Specialty Start Date End Date Hardy Morgan MD PhD [address] [facility] [address] [place] [address] PCP - General 12/02/16 08/10/22 Angie Riddle MD [address] [address] Gynecology 08/19/16 documented as of this encounter
--- OUTSIDE RECORDS SUMMARY | 2024-03-01 06:13 | XMS_ITS | Encounter Summary ---
Author Organization [facility] Medical Group Address [address] [place] [address] Care Team Providers Care Activity Specialist Name Role Phone Angie Riddle MD Unavailable [phone] Hardy Morgan MD PhD Primary Care Provider + Reason for Visit * Reason Comments Atrial Fibrillation Hypertension Encounter Details Date Type Department Care Team (Late st Contact Info) Description 04/18/2018 9:30 AM PROCESS SPECIALIST Office Visit [facility] [place] [address] [facility] [address] [place] [address] Nilton Cho MD [address] [facility] [address] [place] [address] Paroxysmal atrial fibrillation (CMS/HCC) (Primary [...] on file Legal Sex Female 9:31 AM PROCESS SPECIALIST Gender Identity Not on file Sexual Orientation Not on file documented as of this encounter Last Filed Vital Signs Vital Sign Reading Time Taken Comments Blood Pressure 136/80 04/18/2018 9:59 AM PROCESS SPECIALIST Pulse 64 04/18/2018 9:59 AM PROCESS SPECIALIST Temperature - - Respiratory Rate - - Oxygen Saturation - - Inhaled Oxygen Concentration - - Weight 53.3 kg (117 lb 9.6 oz) 04/18/2018 9:59 A M PROCESS SPECIALIST Height 162.6 cm (5' 4 ) 04/18/2018 9:59 AM PROCESS SPECIALIST Body Mass Index 20.19 04/18/2018 9:59 AM PROCESS SPECIALIST documented in this encounter Progress Notes * Nilton Cho MD - 04/18/2018 9:30 AM CST [facility] [place]iology [address] [address] Patient Name: Francine Erwin Provider: Nilton Cho [...] mass, left 08/19/2016 ??? Hyperlipidemia Hyperlipidemia; Comments: [facility] 07/20/2013 - ??? Hypertension Hypertension; Comments: [facility] 07/20/2013 - ??? 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 Chronic A lead is from 09-13-03. Lia implant-Marquis Card. ??? Paroxysmal atrial fibrillation (CMS/HCC) PAF - Paroxysmal atrial fibrillation; Comments: [facility] 07/20/2013 - ??? Sick sinus syndrome (CMS/HCC) SSS; Comments: [facility] 07/20/2013 - Past Surgical History: [...] POCT lipid panel Pacemaker Nilton Cho MD ESS SPECIALIST documented in this encounter Plan of Treatment Not on file documented as of this encounter Procedures Procedure Name Priority Date/Time Associated Diagnosis Comments POCT LIPID PANEL Routine 04/18/2018 10:2 2 AM PROCESS SPECIALIST Pure hypercholesterolemia documented in this encounter Results * POCT lipid panel (04/18/2018 10:22 AM PROCESS SPECIALIST) Cholesterol, POC 173 mg/dL HDL, POC 69 mg/dL Triglycerides, POC 123 mg/dL LDL Cholesterol POC 80 mg/dL Capillary blood 04/18/2018 1 0:22 AM PROCESS SPECIALIST us Nilton Cho MD POINT OF CARE [...] 08/11/2022 added in this encounter Care Teams Activity Specialist Relationship Specialty Start Date End Date Hardy Morgan MD PhD [address] [facility] [address] [place] [address] PCP - General 12/02/16 08/10/22 Angie Riddle MD [address] [place] [address] Gynecology 08/19/16 documented as of this encounter
--- OUTSIDE RECORDS SUMMARY | 2024-03-01 06:13 | XMS_ITS | Encounter Summary ---
Author Organization [facility] Medical Group Address [address] [place] [address] Care Team Providers Care Receiving Associate Name Role Phone Angie Riddle MD Unavailable [phone] Hardy Morgan MD PhD Primary Care Provider + Reason for Visit * Reason Comments Hypertension Hyperlipidemia Atrial Fibrillation Encounter Details Date Type Department Care Team (Late st Contact Info) Description 06/09/2019 9:30 AM CDT Telemedicine [facility] Medical [facility] Cardiology [address] [facility] [address] [place] [address] Yoni Matamoros MD [facility] [facility] [address] [place] [address] Paroxysmal atrial fibrillation (CMS/HCC) (Primary [...] on file Legal Sex Female 9:31 AM HOTEL SERVICES SUPERVISOR Gender Identity Not on file Sexual [...] from the original note were not included. [facility] [place] [address] [place] [address], [address] [place], [place], [address] Cardiology Electrophysiology Jose Ramon Walker, MD Cesar Tucker,, MD Jonathan Garcia, MD Skinny Fitzgerald, MD Nilton Mason, MD Nilton Cho, MD Quiana Cifuentes, POST GRADUATE INTERNSHIP Jacob Infante, DO Antonio Canela, MD Rajendra Nunes, MD Linda Carlton, MD Pollo Reynolds, MD Tomer Manjarrez, DO Yoni Matamoros, MD Tati Stacy, POST GRADUATE INTERNSHIP Shakira Maradiaga, POST GRADUATE INTERNSHIP Claudia Diaz, POST GRADUATE INTERNSHIP Patient Name: Francine Erwin Provider: Yoni Matamoros [...] note was dictated with voice-recognition software, and falafel cart cook errors may be present. Yoni Matamoros MD [facility] Air Quality Consultant documented in this encounter Miscellaneous Notes * [...] 11/12/2023 added in this encounter Care Teams Receiving Associate Relationship Specialty Start Date End Date Hardy Morgan MD PhD [address] [facility] [address] [place] [address] PCP - General 12/02/16 08/10/22 Angie Riddle MD [address] [address] Gynecology 08/19/16 documented as of this encounter
--- OUTSIDE RECORDS SUMMARY | 2024-03-01 06:13 | XMS_ITS | Encounter Summary ---
Author Organization [facility] Address [address] [place] [address] Care Team Providers Care Toll Gate Tender Name Role Phone Angie Riddle MD Unavailable [phone] Hardy Morgan MD PhD Primary Care Provider + Encounter Details Date Type Department Care Team (Latest Contact Info) Description 03/14/2018 11:00 AM TIME MOTION ANALYST Ancillary Procedure [facility] Cardiology [address] [place] [address] SSS (sick sinus syndrome) (CMS/HCC); Pacemaker Social History Tobacco Use Types Packs/Day Years Used Date Smoking Tobacco: Former Cigarettes Q uit: 1985 Smokeless Tobacco: Never Alcohol Use Standard Drinks/Week Comments No 0 (1 standard drink = 0.6 oz pur e alcohol) Comments No Sex and Gender Information Value Date Recorded Sex Assigned at Not on file Legal Sex Female 9:31 AM TIME MOTION ANALYST Gender Identity Not on file Sexual [...] 0.625 V @ .40 Ms [facility]: [facility] as noted above. 2) [facility]link 3 months. 3) In office pacer check and OV with Dr. Cho is scheduled Francine Gentile RN, RS, Arrhythmia Device Specialist MOTION ANALYST documented in this encounter Plan of Treatment Not on file documented as of this encounter Procedures Procedure Name Priority Date/Time Associated Diagnosis Comments DEVICE CHECK - REMOTE Routine 03/22/2018 9:53 AM TIME MOTION ANALYST SSS (sick sinus syndrome) ([facility]) documented in this encounter Results * DEVICE CHECK - REMOTE (03/22/2018 9:53 AM TIME MOTION ANALYST) Anatomical Region Laterality Modality Other Narrative 04/19/2018 10:30 AM TIME MOTION ANALYST This patient has a Medtronic Adapta DDD [...] Dr. Cho is scheduled Francine Gentile RN, [facility], Arrhythmia Device Specialist Nilton Cho MD CV CARDIAC SERVICES PROCEDUR ES Final Result documented in this encounter Visit Diagnoses Diagnosis SSS (sick sinus syndrome) (CMS/HCC) (HCC) Sinoatrial node dysfunction Pacemaker Cardiac pacemaker in situ documented in this encounter Care Teams Toll Gate Tender Relationship Specialty Start Date End Date Hardy Morgan MD PhD [address] [facility] [address] [place] [address] PCP - General 12/02/16 08/10/22 Angie Riddle MD [address] [place] [address] Gynecology 08/19/16 documented as of this encounter
--- OUTSIDE RECORDS SUMMARY | 2024-03-01 06:13 | XMS_ITS | Encounter Summary ---
Author Organization [facility] Medical [facility] Address [address] [place] [address] Care Team Providers Care Occupational Health Physiotherapist Name Role Phone Angie Riddle MD Unavailable [phone] Hardy Morgan MD PhD Primary Care Provider [...] Expiration Date V isits Requested Visits Authorized [id number] Canceled 08/26/2016 02/22/2017 1 1 Encounter Details Date Type Department Care Team (Latest Contact Info) Description 06/14/2017 7:00 AM CDT Ancillary Procedure [facility] Cardiology [address] [facility] [address] [place] [address] Sick sinus syndrome (CMS/HCC); Pacemaker Social History Tobacco Use Types Packs/Day Years Used Date Smoking Tobacco: Former Cigarettes Q uit: 1985 Smokeless Tobacco: Never Alcohol Use Standard Drinks/Week Comments No 0 (1 standard drink = 0.6 oz pur e alcohol) Comments No Sex and Gender Information Value Date Recorded Sex Assigned at Not on file Legal Sex Female 9:31 AM RAIL SETTER Gender Identity Not on file Sexual Orientation [...] Real RN Reviewed with Francine Gentile RN, [facility], CCDS-Arrhythmia Device Specialist documented in this [...] situ documented in this encounter Care Teams Occupational Health Physiotherapist Relationship Specialty Start Date End Date Hardy Morgan MD PhD [address] [place] [address] PCP - General 12/02/16 08/10/22 Angie Riddle MD [address] [place] [address] Gynecology 08/19/16 documented as of this encounter
--- OUTSIDE RECORDS SUMMARY | 2024-03-01 06:13 | XMS_ITS | Encounter Summary ---
Author Organization [facility] Address [address] [place] [address] Care Team Providers Care Celery Tier Name Role Phone Angie Riddle MD Unavailable [phone] Hardy Morgan MD PhD Primary Care Provider + Reason for Visit * Reason Onset Date Comments send letter with transmission results 09/12/2018 Encounter Details Date Type Department Care Team (Late st Contact Info) Description 09/12/2018 Telephone [facility] Cardiology [address] [place] [address] Nilton Cho MD [address] [facility] [address] [place], [place] [id number] send letter with transmission results Social History Tobacco Use Types Packs/Day Years Used Date Smoking Tobacco: Former Cigarettes Q uit: 1985 Smokeless Tobacco: Never Alcohol Use Standard Drinks/Week Comments No 0 (1 standard drink = 0.6 oz pur e alcohol) Comments No Sex and Gender Information Value Date Recorded Sex Assigned at Not on file Legal Sex Female 9:31 AM GASTROENTEROLOGY NURSE Gender Identity Not on file Sexual [...] on filedocumented in this encounter Care Teams Celery Tier Relationship Specialty Start Date End Date Hardy Morgan MD PhD [address] [facility] [address] [place] [address] PCP - General 12/02/16 08/10/22 Angie Riddle MD [address] [facility] [address] [place] [address] Gynecology 08/19/16 documented as of this encounter
--- OUTSIDE RECORDS SUMMARY | 2024-03-01 06:13 | XMS_ITS | Encounter Summary ---
Author Organization [facility] Address [address] [place] [address] Care Team Providers Care Photogeologist Name Role Phone Angie Riddle MD Unavailable [phone] Hardy Morgan MD PhD Primary Care Provider + Reason for Visit * (Routine) - Closed Specialty Diagnoses / Procedures Referred By Viridiana oconnor Referred To Contact Diagnoses SSS (sick sinus syndrome) (CMS/HCC) ([facility]) Procedures DEVICE CHECK - REMOTE Nilton Cho MD Phone: tel: fax: [facility] Referral ID Status Reason Start Date Expiration Date Visits Re quested Visits Authorized [id number] Closed 09/06/2018 03/17/2020 1 1 Encounter Details Date Type Department Care Team (Latest Contact Info) Description 12/12/2018 11:15 AM CDT Ancillary Procedure [facility] Medical [facility] Cardiology [address] [facility] [address] [place] [address] SSS (sick sinus syndrome) ([facility]) Social History Tobacco Use Types Packs/Day Years Used Date Smoking Tobacco: Former Cigarettes Q uit: 1985 Smokeless Tobacco: Never Alcohol Use Standard Drinks/Week Comments No 0 (1 standard drink = 0.6 oz pur e alcohol) Comments No Sex and Gender Information Value Date Recorded Sex Assigned at Not on file Legal Sex Female 9:31 AM PRIVATE PILOT Gender Identity Not on file Sexual Orientation [...] Laterality Modality Other Narrative 01/10/2019 2:07 PM PRIVATE PILOT This patient received a Medtronic Pacemaker. ??They [...] to SARMAD Episodes last 90 days/Comments: AF [place] 4.3 %, 2 days total time, longest duration 15 hours, average time <1 hour 632 AT/AF events - appears AFib NORMAL DEVICE FUNCTION PROGRAMMED Anti-coagulant(s): Pradaxa Anti-arrhythmic(s): metoprolol Plan: 1) Medtronic Pacemaker evaluation 2) Carelink remote transmission scheduled in 3 months. 3) Letter sent with transmission results Shahram Yanez (R), [facility], CCDS - Certified Cardiac Device Specialist Nilton Cho MD CV CARDIAC SERVICES PROCEDUR ES Final Result documented in this encounter Visit Diagnoses Diagnosis SSS (sick sinus syndrome) (CMS/HCC) (HCC) Sinoatrial node dysfunction documented in this encounter Care Teams Photogeologist Relationship Specialty Start Date End Date Hardy Morgan MD PhD [address] [facility] [address] [place] [address] PCP - General 12/02/16 08/10/22 Angie Riddle MD [address] [place] [address] Gynecology 08/19/16 documented as of this encounter
--- OUTSIDE RECORDS SUMMARY | 2024-03-01 06:13 | XMS_ITS | Encounter Summary ---
Author Organization [facility] Address [address] [place] [address] Care Team Providers Care Literacy Specialist Name Role Phone Angie Riddle MD Unavailable [phone] Hardy Morgan MD PhD Primary Care Provider + Reason for Visit * Reason Onset Date Comments pradaxa refill 06/13/2018 Encounter Details Date Type Department Care Team (Late st Contact Info) Description 06/13/2018 Telephone [facility] Cardiology [address] [facility] [place] [address] Nilton Cho MD [address] [facility] [address] [place] [address] pradaxa refill Social History Tobacco Use Types Packs/Day Years Used Date Smoking Tobacco: Former Cigarettes Q uit: 1985 Smokeless Tobacco: Never Alcohol Use Standard Drinks/Week Comments No 0 (1 standard drink = 0.6 oz pur e alcohol) Comments No Sex and Gender Information Value Date Recorded Sex Assigned at Not on file Legal Sex Female 9: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 * Telephone Encounter - Sadia Monte LPN - 06/13/2018 12:54 PM CDT Pt. LVM on refill line requesting a refill on pradaxa 150mg. Pt was requesting that we email it to her. Contacted her and let her know that we can't email prescriptions and that I would have to send it to a pharmacy. Requesting I send to [facility] and she will have it transferred if [...] documented as of this encounter Care Teams Literacy Specialist Relationship Specialty Start Date End Date Hardy Morgan MD PhD [address] [facility] [address] [place] [address] PCP - General 12/02/16 08/10/22 Angie Riddle MD [address] [address] Gynecology 08/19/16 documented as of this encounter
--- OUTSIDE RECORDS SUMMARY | 2024-03-01 06:13 | XMS_ITS | Encounter Summary ---
Author Organization [facility] Medical [facility] Address [address] [place] [address] Care Team Providers Care Boring Machine Operator Production Name Role Phone Angie Riddle MD Unavailable Hardy Morgan MD PhD Primary Care Provider + Reason for Referral * Cardiology (Routine) - Closed Specialty Diagnoses / Procedures Referred By Viridiana oconnor Referred To Contact Diagnoses Pacemaker Procedures DEVICE CHECK - IN OFFICE Yoni Matamoros MD [address] [facility] [address] [address] Phone: tel: fax: [facility] Medical Group Referral ID Status Reason Start Date Expiration Date Visits Re quested Visits Authorized [id number] Closed 08/12/2020 09/11/2021 1 1 Reason for Visit * Reason Comments Atrial Fibrillation Encounter Details Date Type Department Care Team (Late st Contact Info) Description 08/12/2020 10:45 AM CDT Office Visit [facility] Cardiology [address] [facility] [address] [address] Yoni Matamoros MD [address] [facility] [address], [place] [address] Paroxysmal atrial fibrillation (CMS/HCC) (Primary [...] on file Legal Sex Female 9:31 AM STAFF REPORTER Gender Identity Not on file Sexual Orientation [...] from the original note were not included. [facility] Cardiology [facility] [place], [place], [address] Cardiology Electrophysiology MD Cesar Gaspar,, MD Jonathan Garcia, MD Skinny Fitzgerald, MD Nilton Mason, MD Nilton Cho, MD Quiana Cifuentes, STEWARD/STEWARDESS ECONOMY CLASS Jacob Infante, DO Antonio Canela, MD Rajendra Nunes, MD Linda Carlton, MD Tomer Maldonado, DO MD Tati Ramirez, STEWARD/STEWARDESS ECONOMY CLASS Shakria Maradiaga, STEWARD/STEWARDESS ECONOMY CLASS Claudia Diaz, STEWARD/STEWARDESS ECONOMY CLASS Patient Name: Francine Erwin Provider: Yoni Matamoros [...] years left on battery Yoni Matamoros MD [facility] Guest Services Lead This note was dictated in part using [employer] voice recognition software. Despite careful review of [...] SARMAD Episodes last 90 days/Comments: AF [place] 4.8 %, longest duration of 12 hours [...] 11/12/2023 added in this encounter Care Teams Boring Machine Operator Production Relationship Specialty Start Date End Date Hardy Morgan MD PhD [address] [facility] [address] [facility] [address] [place] [address] PCP - General 12/02/16 08/10/22 Angie Riddle MD [address] [facility] [address] [place] [address] Gynecology 08/19/16 documented as of this encounter
--- OUTSIDE RECORDS SUMMARY | 2024-03-01 06:13 | XMS_ITS | Encounter Summary ---
Author Organization [facility] Medical Group Address [address] [place] [address] Care Team Providers Care Doper Operator Name Role Phone Angie Riddle MD Unavailable [phone] Hardy Morgan MD PhD Primary Care Provider + Encounter Details Date Type Department Care Team (Late st Contact Info) Description 02/11/2017 Telephone [facility] [address] [facility] [address], [place] [address] Angie Rogers Social History Tobacco Use Types Packs/Day Years Used Date Smoking Tobacco: Former Alcohol Use Standard Drinks/Week Comments No 0 (1 standard drink = 0.6 oz pur e alcohol) Comments No Sex and Gender Information Value Date Recorded Sex Assigned at Not on file Legal Sex Female 9:31 AM TRAVEL WRITER Gender Identity Not on file Sexual Orientation Not on file documented as of this encounter Miscellaneous Notes * Telephone Encounter - Angie Rogers - 02/11/2017 11:14 AM CST Pt called & left a vm about her path from her bx of her l brst 08/26/16- path was negative. I had to leave a vm for pt. EL WRITER documented in this encounter Plan of Treatment Not on file documented as of this encounter Visit Diagnoses Not on filedocumented in this encounter Care Teams Doper Operator Relationship Specialty Start Date End Date Hardy Morgan MD PhD [address] [place] [address] PCP - General 12/02/16 08/10/22 Angie Riddle MD [address] [place] [address] Gynecology 08/19/16 documented as of this encounter
--- OUTSIDE RECORDS SUMMARY | 2024-03-01 06:13 | XMS_ITS | Encounter Summary ---
Author Organization [facility] Medical [facility] Address [address] [place] [address] Care Team Providers Care Bath Solution Maker Name Role Phone Angie Riddle MD Unavailable [phone] Hardy Morgan MD PhD Primary Care Provider + Reason for Visit * Cardiology (Routine) - Closed Specialty Diagnoses / Procedures Referred By Viridiana oconnor Referred To Contact Diagnoses SSS (sick sinus syndrome) (CMS/HCC) (HCC) Procedures DEVICE CHECK - REMOTE Yoni Matamoros MD [address] [facility] [address], [place] [address] Phone: tel: fax: [facility] Group Referral ID Status Reason Start Date Expiration Date Visits Re quested Visits Authorized [id number] Closed 02/28/2020 03/29/2021 1 1 Encounter Details Date Type Department Care Team (Latest Contact Info) Description 03/31/2021 11:30 AM BURSAR Ancillary Procedure [facility] Medical [facility] Cardiology [address] [facility] [address] [place] [address] SSS (sick sinus syndrome) (CMS/HCC) ([facility]); Pacemaker Social History Tobacco Use Types Packs/Day Years Used Date Smoking Tobacco: Former Cigarettes Q uit: 1985 Smokeless Tobacco: Never Alcohol Use Standard Drinks/Week Comments No 0 (1 standard drink = 0.6 oz pur e alcohol) Comments No Sex and Gender Information Value Date Recorded Sex Assigned at Not on file Legal Sex Female 9:31 AM BURSAR Gender Identity Not on file Sexual Orientation Not on file documented as of this encounter Plan of Treatment Not on file documented as of this encounter Procedures Procedure Name Priority Date/Time Associated Diagnosis Comments DEVICE CHECK - REMOTE Routine 03/31/2021 9:14 AM BURSAR SSS (sick sinus syndrome) (CMS/HCC) (HCC) documented in this encounter Results * DEVICE CHECK - REMOTE (03/31/2021 9:14 AM BURSAR) Anatomical Region Laterality Modality Other Narrative 04/02/2021 8:52 AM BURSAR This patient received a Medtronic Pacemaker. ??They [...] to SARMAD Episodes last 90 days/Comments: AF [place] 6.1 %, the longest episode lasted 1 [...] situ documented in this encounter Care Teams Bath Solution Maker Relationship Specialty Start Date End Date Hardy Morgan MD PhD [address] [facility] [address] [place] [address] PCP - General 12/02/16 08/10/22 Angie Riddle MD [address] [address] Gynecology 08/19/16 documented as of this encounter
--- OUTSIDE RECORDS SUMMARY | 2024-03-01 06:13 | XMS_ITS | Encounter Summary ---
Author Organization [facility] Address [address] [place] [address] Care Team Providers Care Poacher Operator Name Role Phone Angie Riddle MD Unavailable [phone] Hardy Morgan MD PhD Primary Care Provider + Reason for Visit * (Routine) - Closed Specialty Diagnoses / Procedures Referred By Viridiana oconnor Referred To Contact Diagnoses SSS (sick sinus syndrome) (CMS/HCC) ([facility]) Procedures DEVICE CHECK - REMOTE Yoni Matamoros MD [address] [facility] [address], [place] [address] Phone: tel: fax: [facility] Referral ID Status Reason Start Date Expiration Date Visits Re quested Visits Authorized [id number] Closed 03/08/2019 09/16/2020 1 1 Encounter Details Date Type Department Care Team (Latest Contact Info) Description 06/07/2019 1:00 PM CDT Ancillary Procedure [facility] Medical [facility] Cardiology [address] [facility] [address] [place] [address] SSS (sick sinus syndrome) (CMS/HCC); Pacemaker Social History Tobacco Use Types Packs/Day Years Used Date Smoking Tobacco: Former Cigarettes Q uit: 1985 Smokeless Tobacco: Never Alcohol Use Standard Drinks/Week Comments No 0 (1 standard drink = 0.6 oz pur e alcohol) Comments No Sex and Gender Information Value Date Recorded Sex Assigned at Not on file Legal Sex Female 9:31 AM TANK BOTTOM ASSEMBLER Gender Identity Not on file Sexual Orientation [...] to SARMAD Episodes last 90 days/Comments: AF [place] 4.2 %, longest duration 15 hours and [...] situ documented in this encounter Care Teams Poacher Operator Relationship Specialty Start Date End Date Hardy Morgan MD PhD [address] [facility] [address] [place] [address] PCP - General 12/02/16 08/10/22 Angie Riddle MD [address] [place] [address] Gynecology 08/19/16 documented as of this encounter
--- OUTSIDE RECORDS SUMMARY | 2024-03-01 06:13 | XMS_ITS | Encounter Summary ---
Author Organization [facility] Address [address] [place] [address] Care Team Providers Care Electronic Pagination System Operator Name Role Phone Angie Riddle MD Unavailable [phone] Hardy Morgan MD PhD Primary Care Provider + Reason for Visit * Diagnostic Imaging (Routine) - Closed Specialty Diagnoses / Procedures Referred By Viridiana oconnor Referred To Contact Procedures Breast Imaging Screening Outside Reference Miscellaneous, Not In File Referral ID Status Reason Start Date Expiration Date Visits Re quested Visits Authorized [id number] Closed 12/18/2022 01/17/2024 1 1 Encounter Details [...] on file Legal Sex Female 9:31 AM TURBO ELECTRIC OPERATOR Gender Identity Not on file Sexual [...] on filedocumented in this encounter Care Teams Electronic Pagination System Operator Relationship Specialty Start Date End Date Hardy Morgan MD PhD [address] [facility] [address] [place] [address] PCP - General 12/02/16 08/10/22 Angie Riddle MD [address] [place] [address] Gynecology 08/19/16 documented as of this encounter
--- OUTSIDE RECORDS SUMMARY | 2024-03-01 06:13 | XMS_ITS | Encounter Summary ---
Author Organization [facility] Address [address] [place] [address] Care Team Providers Care Shellfish Processing Machine Tender Name Role Phone Angie Riddle MD Unavailable Hardy Morgan MD PhD Primary Care Provider + Encounter Details Date Type Department Care Team (Latest Contact Info) Description 01/01/2017 2:28 PM CDT - 01/01/2017 4:56 PM CDT Hospital Encounter [facility] - Interventional Radiology [address] [place] [address] Smith Ortiz DO [address] [place] [address] [address] [place] [address] Discharge Disposition: Discharge to home or self care Social History Tobacco Use Types Packs/Day Years Used Date Smoking Tobacco: Former Alcohol Use Standard Drinks/Week Comments No 0 (1 standard drink = 0.6 oz pur e alcohol) Comments No Sex and Gender Information Value Date Recorded Sex Assigned at Not on file Legal Sex Female 9:31 AM VEGETABLE II FARMWORKER Gender Identity Not on file Sexual Orientation [...] ORTIZ ??D.O. Requesting Fax: ?? Requesting ID: [id number] Attending Fax: ?? Attending ID: ?? [id number] Completed Time: ?? 01/01/2017 3:09 PM Dictated [...] Requesting: SMITH ORTIZ D.O. Requesting Requesting ID: [id number] Attending Attending ID: [id number] Completed Time: 01/01/2017 3:09 PM Dictated Time: [...] on filedocumented in this encounter Care Teams Shellfish Processing Machine Tender Relationship Specialty Start Date End Date Hardy Morgan MD PhD [address] [facility] [address] [place] [address] PCP - General 12/02/16 08/10/22 Angie Riddle MD [address] [facility] [address] [place] [address] Gynecology 08/19/16 documented as of this encounter
--- OUTSIDE RECORDS SUMMARY | 2024-03-01 06:13 | XMS_ITS | Encounter Summary ---
Author Organization [facility] Medical [facility] Address [address] [facility] [address] [place] [address] Care Team Providers Care Bulk System Operator Name Role Phone Angie Riddle MD Unavailable [phone] Hardy Morgan MD PhD Primary Care Provider + Reason for Visit * (Routine) - Closed Specialty Diagnoses / Procedures Referred By Viridiana oconnor Referred To Contact Diagnoses SSS (sick sinus syndrome) (CMS/HCC) ([facility]) Procedures DEVICE CHECK - REMOTE Yoni Matamoros MD [address] [facility] [address], [place] [address] Phone: tel: fax: [facility] Referral ID Status Reason Start Date Expiration Date Visits Re quested Visits Authorized [id number] Closed 03/08/2019 09/16/2020 1 1 Encounter Details Date Type Department Care Team (Latest Contact Info) Description 09/04/2019 7:30 AM CDT Ancillary Procedure [facility] Medical [facility] Cardiology [address] [facility] [address] [place] [id number] SSS (sick sinus syndrome) ([facility]) Social History Tobacco Use Types Packs/Day Years Used Date Smoking Tobacco: Former Cigarettes Q uit: 1985 Smokeless Tobacco: Never Alcohol Use Standard Drinks/Week Comments No 0 (1 standard drink = 0.6 oz pur e alcohol) Comments No Sex and Gender Information Value Date Recorded Sex Assigned at Not on file Legal Sex Female 9:31 AM WELDING EQUIPMENT REPAIRER SUPERVISOR Gender Identity Not on file Sexual [...] to SARMAD Episodes last 90 days/Comments: AF [place] 5.3 %, there were numerous episodes of [...] dysfunction documented in this encounter Care Teams Bulk System Operator Relationship Specialty Start Date End Date Hardy Morgan MD PhD [address] [facility] [address] [place] [address] PCP - General 12/02/16 08/10/22 Angie Riddle MD [address] [address] Gynecology 08/19/16 documented as of this encounter
--- OUTSIDE RECORDS SUMMARY | 2024-03-01 06:13 | XMS_ITS | Encounter Summary ---
Author Organization [facility] Medical [facility] Address [address] [address] Care Team Providers Care Tool Engine Lathe Set Up Operator Name Role Phone Angie Riddle MD Unavailable [phone] Hardy Morgan MD PhD Primary Care Provider + Reason for Referral * (Routine) - Closed Specialty Diagnoses / Procedures Referred By Contac t Referred To Contact Diagnoses SSS (sick sinus syndrome) (CMS/HCC) (HCC) Procedures DEVICE CHECK - REMOTE Nilton Cho MD Phone: tel: fax: [facility] Medical Group Referral ID Status Reason Start Date Expiration Date Visits Re quested Visits Authorized [id number] Closed 09/06/2018 03/17/2020 1 1 * (Routine) - Closed Specialty Diagnoses / Procedures Referred By Contac t Referred To Contact Diagnoses SSS (sick sinus syndrome) (CMS/HCC) (HCC) Procedures DEVICE CHECK - REMOTE Nilton Cho MD Phone: tel: fax: [facility] Medical [facility] Referral ID Status Reason Start Date Expiration Date Visits Re quested Visits Authorized [id number] Closed 09/06/2018 03/17/2020 1 1 Encounter Details Date Type Department Care Team (Late st Contact Info) Description 09/06/[address] [facility] Medical Group Cardiology [address] [facility] [address] [place] [address] Nilton Cho MD [address] [place] [address] SSS (sick sinus syndrome) (CMS/HCC) (Primary Dx) Social History Tobacco Use Types Packs/Day Years Used Date Smoking Tobacco: Former Cigarettes Q uit: 1985 Smokeless Tobacco: Never Alcohol Use Standard Drinks/Week Comments No 0 (1 standard drink = 0.6 oz pur e alcohol) Comments No Sex and Gender Information Value Date Recorded Sex Assigned at Not on file Legal Sex Female 9:31 AM SUPERVISOR OF OPERATIONS Gender Identity Not on file Sexual Orientation Not on file documented as of this encounter Plan of Treatment Not on file documented as of this encounter Results * DEVICE CHECK - REMOTE (12/12/2018 4:01 PM CDT) Anatomical Region Laterality Modality Other Narrative 01/10/2019 2:07 PM SUPERVISOR OF OPERATIONS This patient received a Medtronic Pacemaker. ??They [...] to SARMAD Episodes last 90 days/Comments: AF [place] 4.3 %, 2 days total time, longest duration 15 hours, average time <1 hour 632 AT/AF events - appears AFib NORMAL DEVICE FUNCTION PROGRAMMED Anti-coagulant(s): Pradaxa Anti-arrhythmic(s): metoprolol Plan: 1) Medtronic Pacemaker evaluation 2) Carelink remote transmission scheduled in 3 months. 3) Letter sent with transmission results Shahram Yanez), [facility], CCDS - Certified Cardiac Device Specialist [...] with transmission results Francine Gentile RN, [facility], Arrhythmia Device Specialist Nilton Cho MD CV CARDIAC SERVICES PROCEDUR ES Final Result documented in this encounter Visit Diagnoses Diagnosis SSS (sick sinus syndrome) (CMS/HCC) (HCC)- Primary Sinoatrial node dysfunction SSS (sick sinus syndrome) (CMS/HCC) (HCC) Sinoatrial node dysfunction Pacemaker Cardiac pacemaker in situ SSS (sick sinus syndrome) (CMS/HCC) (HCC) Sinoatrial node dysfunction documented in this encounter Care Teams Tool Engine Lathe Set Up Operator Relationship Specialty Start Date End Date Hardy Morgan MD PhD [address] [facility] [address] [place] [address] PCP - General 12/02/16 08/10/22 Angie Riddle MD [address] [place] [address] Gynecology 08/19/16 documented as of this encounter
--- OUTSIDE RECORDS SUMMARY | 2024-03-01 06:13 | XMS_ITS | Encounter Summary ---
Author Organization [facility] Medical Group Address [address] [facility] [address] [place] [address] Care Team Providers Care Medical Device Name Role Phone Angie Riddle MD Unavailable [phone] Hardy Morgan MD PhD Primary Care Provider + Encounter Details Date Type Department Care Team (Late st Contact Info) Description 02/10/2018 Telephone [facility] Cardiology [address] [facility] [address], [place] [address] Nilton Cho MD [address] [facility] [address], [place] [address] Social History Tobacco Use Types Packs/Day Years Used Date Smoking Tobacco: Former Cigarettes Q uit: 1985 Smokeless Tobacco: Never Alcohol Use Standard Drinks/Week Comments No 0 (1 standard drink = 0.6 oz pur e alcohol) Comments No Sex and Gender Information Value Date Recorded Sex Assigned at Not on file Legal Sex Female 9:31 AM HOT DIE PICKER Gender Identity Not on file Sexual Orientation Not on file documented as of this encounter Miscellaneous Notes * Telephone Encounter - Lia Braxton MA - 02/14/2018 11:41 AM HOT DIE PICKER Letter and schedule mailed to pt. DIE PICKER * Telephone Encounter - Jessica Real RN - 02/10/2018 12:40 PM HOT DIE PICKER Raysa, Can you please send this patient a letter stating their device is functioning properly and the dates for her next remotes/in office device check? Thank you, Jessica DIE PICKER documented in this encounter Plan of Treatment Not on file documented as of this encounter Visit Diagnoses Not on filedocumented in this encounter Care Teams Medical Device Relationship Specialty Start Date End Date Hardy Morgan MD PhD [address] [facility] [address] [facility] [address] [place] [address] PCP - General 12/02/16 08/10/22 Angie Riddle MD [address] [place] [address] Gynecology 08/19/16 documented as of this encounter
--- OUTSIDE RECORDS SUMMARY | 2024-03-01 06:13 | XMS_ITS | Encounter Summary ---
Author Organization [facility] Address [address] [facility] [address] [place] [address] Care Team Providers Care Wallpaper Scraper Name Role Phone Angie Riddle MD Unavailable [phone] Hardy Morgan MD PhD Primary Care Provider + Reason for Referral * Cardiology (Routine) - Closed Specialty Diagnoses / Procedures Referred By Contac t Referred To Contact Diagnoses SSS (sick sinus syndrome) (CMS/HCC) (HCC) Procedures DEVICE CHECK - REMOTE Yoni Matamoros MD [address], [place] [address] Phone: tel: fax: [facility] Medical [facility] Referral ID Status Reason Start Date Expiration Date Visits Re quested Visits Authorized [id number] Closed 02/28/2020 03/29/2021 1 1 ON SUNGLASSES ASSEMBLER * Cardiology (Routine) - Closed Specialty Diagnoses / Procedures Referred By Contac t Referred To Contact Diagnoses SSS (sick sinus syndrome) ([facility]/HCC) (HCC) Procedures DEVICE CHECK - REMOTE Yoni Matamoros MD [address], [place] [address] Phone: tel: fax: [facility] Referral ID Status Reason Start Date Expiration Date Visits Re quested Visits Authorized [id number] Closed 02/28/2020 03/29/2021 1 1 ON SUNGLASSES ASSEMBLER * Cardiology (Routine) - Closed Specialty Diagnoses / Procedures Referred By Contac t Referred To Contact Diagnoses SSS (sick sinus syndrome) (CMS/HCC) (HCC) Procedures DEVICE CHECK - REMOTE Yoni Matamoros MD [address] [facility] [address] [place] [address] Phone: tel: fax: [facility] Referral ID Status Reason Start Date Expiration Date Visits Re quested Visits Authorized [id number] Closed 02/28/2020 03/29/2021 1 1 ON SUNGLASSES ASSEMBLER * Cardiology (Routine) - Closed Specialty Diagnoses / Procedures Referred By Contac t Referred To Contact Diagnoses SSS (sick sinus syndrome) (CMS/HCC) (HCC) Procedures DEVICE CHECK - REMOTE Yoni Matamoros MD [address] [facility] [address] [place] [address] Phone: tel: fax: [facility] Referral ID Status Reason Start Date Expiration Date Visits Re quested Visits Authorized [id number] Closed 02/28/2020 03/29/2021 1 1 ON SUNGLASSES ASSEMBLER * Cardiology (Routine) - Closed Specialty Diagnoses / Procedures Referred By Contac t Referred To Contact Diagnoses SSS (sick sinus syndrome) (CMS/HCC) (HCC) Procedures DEVICE CHECK - REMOTE Yoni Matamoros MD [address] [facility] [address] [place] [address] Phone: tel: fax: [facility] Referral ID Status Reason Start Date Expiration Date Visits Re quested Visits Authorized [id number] Closed 02/28/2020 03/29/2021 1 1 ON SUNGLASSES ASSEMBLER Encounter Details Date Type Department Care Team (Late st Contact Info) Description 02/28/2020 Orders Only [facility] Cardiology [address] [facility] [address] [place] [address] Yoni Matamoros MD [address] [facility] [address] [place] [address] SSS (sick sinus syndrome) (CMS/HCC) (Primary Dx) Social History Tobacco Use Types Packs/Day Years Used Date Smoking Tobacco: Former Cigarettes Q uit: 1985 Smokeless Tobacco: Never Alcohol Use Standard Drinks/Week Comments No 0 (1 standard drink = 0.6 oz pur e alcohol) Comments No Sex and Gender Information Value Date Recorded Sex Assigned at Not on file Legal Sex Female 9:31 AM CLIP ON SUNGLASSES ASSEMBLER Gender Identity Not on file Sexual [...] to SARMAD Episodes last 90 days/Comments: AF [place] 5.0 %, the the longest most recent [...] DEVICE CHECK - REMOTE (03/31/2021 9:14 AM CLIP ON SUNGLASSES ASSEMBLER) Anatomical Region Laterality Modality Other Narrative 04/02/2021 8:52 AM CLIP ON SUNGLASSES ASSEMBLER This patient received a Medtronic Pacemaker. ??They [...] to SARMAD Episodes last 90 days/Comments: AF [place] 6.1 %, the longest episode lasted 1 [...] to SARMAD Episodes last 90 days/Comments: AF [place] 7.1 %, the longest episode was 24 [...] to SARMAD Episodes last 90 days/Comments: AF [place] 4.2 %, the longest episode lasted 21 [...] to SARMAD Episodes last 90 days/Comments: AF [place] 6.2 %, the longest episode lasting 20 [...] situ documented in this encounter Care Teams Wallpaper Scraper Relationship Specialty Start Date End Date Hardy Morgan MD PhD [address] [facility] [address] [place] [address] PCP - General 12/02/16 08/10/22 Angie Riddle MD [address] [place] [address] Gynecology 08/19/16 documented as of this encounter
--- OUTSIDE RECORDS SUMMARY | 2024-03-01 06:13 | XMS_ITS | Encounter Summary ---
Author Organization [facility] Address [address] [place] [address] Care Team Providers Care Sorter Operator Name Role Phone Angie Riddle MD Unavailable [phone] Hardy Morgan MD PhD Primary Care Provider + Reason for Visit * Diagnostic Imaging (Routine) - Closed Specialty Diagnoses / Procedures Referred By Viridiana oconnor Referred To Contact Procedures Breast Imaging Screening Outside Reference Miscellaneous, Not In File Referral ID Status Reason Start Date Expiration Date Visits Re quested Visits Authorized [id number] Closed 12/18/2022 01/17/2024 1 1 Encounter Details [...] on file Legal Sex Female 9:31 AM CORE BAKER Gender Identity Not on file Sexual Orientation [...] on filedocumented in this encounter Care Teams Sorter Operator Relationship Specialty Start Date End Date Hardy Morgan MD PhD [address] [place] [address] [facility] [address] [place] [address] PCP - General 12/02/16 08/10/22 Angie Riddle MD [address] [facility] [address] [place] [address] Gynecology 08/19/16 documented as of this encounter
--- OUTSIDE RECORDS SUMMARY | 2024-03-01 06:13 | XMS_ITS | Encounter Summary ---
Author Organization [facility] Address [address] [place] [address] Care Team Providers Care Order Entry Representative Name Role Phone Angie Riddle MD Unavailable [phone] Hardy Morgan MD PhD Primary Care Provider + Reason for Visit * Diagnostic Imaging (Routine) - Closed Specialty Diagnoses / Procedures Referred By Viridiana oconnor Referred To Contact Procedures Breast Imaging Screening Outside Reference Miscellaneous, Not In File Referral ID Status Reason Start Date Expiration Date Visits Re quested Visits Authorized [id number] Closed 12/18/2022 01/17/2024 1 1 Encounter Details [...] on file Legal Sex Female 9: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
--- OUTSIDE RECORDS SUMMARY | 2024-03-01 06:13 | XMS_ITS | Encounter Summary ---
Author Organization [facility] Medical Group Address [address] [facility] [address] [place] [address] Care Team Providers Care Arts And Humanities Council Director Name Role Phone Angie Riddle MD Unavailable [phone] Hardy Morgan MD PhD Primary Care Provider + Reason for Visit * Reason Onset Date Comments need imaging report 03/30/2017 Encounter Details Date Type Department Care Team (Late st Contact Info) Description 03/30/2017 Telephone [facility] [address] [facility] [address] [place] [address] Rosangela Galloway MA need imaging report Social History Tobacco Use Types Packs/Day Years Used Date Smoking Tobacco: Former Alcohol Use Standard Drinks/Week Comments No 0 (1 standard drink = 0.6 oz pur e alcohol) Comments No Sex and Gender Information Value Date Recorded Sex Assigned at Not on file Legal Sex Female 9: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 I called to verify whether or not pt had had her img @ [facility]. He states pt will be bringing her imaging report from [place] for her appointment tomorrow, img which she had earlier this month. -GR,RMA LASS FRAMES INSPECTOR documented in this encounter Plan of Treatment Not on file documented as of this encounter Visit Diagnoses Not on filedocumented in this encounter Care Teams Arts And Humanities Council Director Relationship Specialty Start Date End Date Hardy Morgan MD PhD [address] [place] [address] PCP - General 12/02/16 08/10/22 Angie Riddle MD [address] [place] [address] Gynecology 08/19/16 documented as of this encounter
--- OUTSIDE RECORDS SUMMARY | 2024-03-01 06:13 | XMS_ITS | Encounter Summary ---
Author Organization [facility] Medical Group Address [address] [facility] [address] [place] [address] Care Team Providers Care Cigar Head Puncher Name Role Phone Angie Riddle MD Unavailable [phone] Hardy Morgan MD PhD Primary Care Provider + Reason for Visit * Cardiology (Routine) - Closed Specialty Diagnoses / Procedures Referred By Viridiana oconnor Referred To Contact Diagnoses SSS (sick sinus syndrome) (CMS/HCC) ([facility]) Procedures DEVICE CHECK - REMOTE Yoni Matamoros MD [address] [facility] [address] [place] [address] Phone: tel: fax: [facility] Medical Group Referral ID Status Reason Start Date Expiration Date Visits Re quested Visits Authorized [id number] Closed 02/28/2020 03/29/2021 1 1 Encounter Details Date Type Department Care Team (Latest Contact Info) Description 06/10/2020 11:30 AM CDT Ancillary Procedure [facility] Medical [facility] Cardiology [address] [facility] [address] [place] [address] SSS (sick sinus syndrome) (CMS/HCC); Cardiac pacemaker [...] on file Legal Sex Female 9:31 AM PUBLIC RELATIONS COUNSELOR Gender Identity Not on file Sexual [...] to SARMAD Episodes last 90 days/Comments: AF [place] 6.2 %, the longest episode lasting 20 [...] situ documented in this encounter Care Teams Cigar Head Puncher Relationship Specialty Start Date End Date Hardy Morgan MD PhD [address] [place] [address] PCP - General 12/02/16 08/10/22 Angie Riddle MD [address] [place] [address] Gynecology 08/19/16 documented as of this encounter
--- OUTSIDE RECORDS SUMMARY | 2024-03-01 06:13 | XMS_ITS | Encounter Summary ---
Author Organization [facility] Address [address] [facility] [address] [place] [address] Care Team Providers Care Currency Exchange Specialist Name Role Phone Angie Riddle MD Unavailable Hardy Morgan MD PhD Primary Care Provider + Reason for Visit * (Routine) - Closed Specialty Diagnoses / Procedures Referred By Viridiana oconnor Referred To Contact Diagnoses SSS (sick sinus syndrome) (CMS/HCC) ([facility]) Procedures DEVICE CHECK - REMOTE Yoni Matamoros MD [address] [facility] [address], [place] [address] Phone: tel: fax: [facility] Medical Group Referral ID Status Reason Start Date Expiration Date Visits Re quested Visits Authorized [id number] Closed 03/08/2019 09/16/2020 1 1 Encounter Details Date Type Department Care Team (Latest Contact Info) Description 04/06/2019 1:35 PM FIRER LOCOMOTIVE Ancillary Procedure [facility] Cardiology [address] [facility] [address] [place] [address] SSS (sick sinus syndrome) (CMS/HCC); Pacemaker Social History Tobacco Use Types Packs/Day Years Used Date Smoking Tobacco: Former Cigarettes Q uit: 1985 Smokeless Tobacco: Never Alcohol Use Standard Drinks/Week Comments No 0 (1 standard drink = 0.6 oz pur e alcohol) Comments No Sex and Gender Information Value Date Recorded Sex Assigned at Not on file Legal Sex Female 9:31 AM FIRER LOCOMOTIVE Gender Identity Not on file Sexual Orientation Not on file documented as of this encounter Plan of Treatment Not on file documented as of this encounter Procedures Procedure Name Priority Date/Time Associated Diagnosis Comments DEVICE CHECK - REMOTE Routine 04/06/2019 1:30 PM FIRER LOCOMOTIVE SSS (sick sinus syndrome) (CMS/HCC) documented in this encounter Results * DEVICE CHECK - REMOTE (04/06/2019 1:30 PM FIRER LOCOMOTIVE) Anatomical Region Laterality Modality Other Narrative 04/06/2019 3:58 PM FIRER LOCOMOTIVE This patient received a Medtronic Pacemaker. ??They [...] to SARMAD Episodes last 90 days/Comments: AF [place] 4.2 %, longest duration the 15 minutes [...] situ documented in this encounter Care Teams Currency Exchange Specialist Relationship Specialty Start Date End Date Hardy Morgan MD PhD [address] [facility] [address] [place] [address] PCP - General 12/02/16 08/10/22 Angie Riddle MD [address] [address] Gynecology 08/19/16 documented as of this encounter
--- OUTSIDE RECORDS SUMMARY | 2024-03-01 06:13 | XMS_ITS | Encounter Summary ---
Author Organization [facility] Healthcare Address [address] [place] [address] Care Team Providers Care Take Away Attendant Name Role Phone Angie Riddle MD Unavailable [phone] Hardy Morgan MD PhD Primary Care Provider + Encounter Details Date Type Department Care Team (Latest Contact Info) Description 12/15/2016 1:01 PM CDT - 12/15/2016 6:32 PM CDT Hospital Encounter [facility] - Interventional Radiology [address] [place] [address] Smith Ortiz DO [address] [facility] [address] [place] [address] Moises Soler MD [address] [place] [address] Discharge Disposition: Discharge to home or self care Social History Tobacco Use Types Packs/Day Years Used Date Smoking Tobacco: Former Alcohol Use Standard Drinks/Week Comments No 0 (1 standard drink = 0.6 oz pur e alcohol) Comments No Sex and Gender Information Value Date Recorded Sex Assigned at Not on file Legal Sex Female 9:31 AM FIBROUS PLASTERER Gender Identity Not on file Sexual Orientation [...] ORTIZ ??D.O. Requesting Fax: ?? Requesting ID: [id number] Attending Fax: ?? Attending ID: ?? [id number] Completed Time: ?? 12/15/2016 2:06 PM Dictated [...] Requesting: SMITH ORTIZ D.O. Requesting Requesting ID: [id number] Attending Attending ID: [id number] Completed Time: 12/15/2016 2:06 PM Dictated Time: [...] on filedocumented in this encounter Care Teams Take Away Attendant Relationship Specialty Start Date End Date Hardy Morgan MD PhD [address] [place] [address] PCP - General 12/02/16 08/10/22 Angie Riddle MD [address] [place] [address] Gynecology 08/19/16 documented as of this encounter
--- OUTSIDE RECORDS SUMMARY | 2024-03-01 06:13 | XMS_ITS | Encounter Summary ---
Author Organization [facility] Medical Group Address [address] [facility] [facility] [address] [place] [address] Care Team Providers Care Electronic Scale Tester Name Role Phone Angie Riddle MD Unavailable [phone] Hardy Morgan MD PhD Primary Care Provider + Reason for Visit * Cardiology (Routine) - Closed Specialty Diagnoses / Procedures Referred By Viridiana oconnor Referred To Contact Diagnoses SSS (sick sinus syndrome) (CMS/HCC) (HCC) Procedures DEVICE CHECK - REMOTE Yoni Matamoros MD [address] [facility] [address] [place] [address] Phone: tel: fax: [facility] Referral ID Status Reason Start Date Expiration Date Visits Re quested Visits Authorized [id number] Closed 02/28/2020 03/29/2021 1 1 Encounter Details Date Type Department Care Team (Latest Contact Info) Description 12/30/2020 8:45 AM CDT Ancillary Procedure [facility] Medical [facility] Cardiology [address] [facility] [address] [place] [id number] SSS (sick sinus syndrome) (CMS/HCC) ([facility]); Pacemaker Social History Tobacco Use Types Packs/Day Years Used Date Smoking Tobacco: Former Cigarettes Q uit: 1985 Smokeless Tobacco: Never Alcohol Use Standard Drinks/Week Comments No 0 (1 standard drink = 0.6 oz pur e alcohol) Comments No Sex and Gender Information Value Date Recorded Sex Assigned at Not on file Legal Sex Female 9: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
--- OUTSIDE RECORDS SUMMARY | 2024-03-01 06:13 | XMS_ITS | Encounter Summary ---
Author Organization [facility] Medical [facility] Address [address] [facility] [address] [place] [address] Care Team Providers Care Lead Nurse Name Role Phone Angie Riddle MD Unavailable [phone] Hardy Morgan MD PhD Primary Care Provider [...] Expiration Date V isits Requested Visits Authorized [id number] Canceled 08/26/2016 02/22/2017 1 1 Encounter Details Date Type Department Care Team (Latest Contact Info) Description 12/13/2017 7:15 AM CDT Ancillary Procedure [facility] Medical [facility] Cardiology [address] [facility] [address] [place] [address] Sick sinus syndrome (CMS/HCC); Pacemaker; [...] file Legal Sex Female 9:31 AM INDUSTRIAL TRUCK 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 Gender Identity Not on file Sexual Orientation Not on file documented as of this encounter Plan of Treatment Not on file documented as of this encounter Procedures Procedure Name Priority Date/Time Associated Diagnosis Comments DEVICE CHECK - REMOTE Routine 02/10/2018 12:30 PM INDUSTRIAL TRUCK MECHANIC Sick sinus syndrome (CMS/HCC) documented in this encounter Results * DEVICE CHECK - REMOTE (02/10/2018 12:30 PM INDUSTRIAL TRUCK MECHANIC) Anatomical Region Laterality Modality Other Narrative 02/23/2018 7:17 AM INDUSTRIAL TRUCK MECHANIC This patient received a [employer]onic Adapta DDD [...] fibrillation documented in this encounter Care Teams Lead Nurse Relationship Specialty Start Date End Date Hardy Morgan MD PhD [address] [place] [address] PCP - General 12/02/16 08/10/22 Angie Riddle MD [address] [facility] [address] [place] [address] Gynecology 08/19/16 documented as of this encounter
--- OUTSIDE RECORDS SUMMARY | 2024-03-01 06:13 | XMS_ITS | Encounter Summary ---
Author Organization [facility] Medical Group Address [address] [facility] [address] [place] [address] Care Team Providers Care Impersonator Character Name Role Phone Angie Riddle MD Unavailable [phone] Hardy Morgan MD PhD Primary Care Provider + Encounter Details Date Type Department Care Team (Late st Contact Info) Description 07/27/2017 Telephone [facility] [address] [facility] [address] [place] [address] Delta Moreno RMA Social History Tobacco Use Types Packs/Day Years Used Date Smoking Tobacco: Former Cigarettes Q uit: 1985 Smokeless Tobacco: Never Alcohol Use Standard Drinks/Week Comments No 0 (1 standard drink = 0.6 oz pur e alcohol) Comments No Sex and Gender Information Value Date Recorded Sex Assigned at Not on file Legal Sex Female 9: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
--- OUTSIDE RECORDS SUMMARY | 2024-03-01 06:14 | XMS_ITS | Encounter Summary ---
Author Organization [facility] Facility Care Team Providers Care Telephone Repairer Name Role Phone Lida Land MD Primary Care Provider [phone] Encounter Details Date Type Department Care Team (Late st Contact Info) Description 02/19/2016 1:16 PM CHILD LIFE THERAPIST - 02/19/2016 11:59 PM CHILD LIFE THERAPIST Hospital Encounter [facility] Erwin, Kin Riojas MD [address] [facility] [address] [place] [address] Breast lump Social History Tobacco Use Types Packs/Day Years Used Date Smoking Tobacco: Former Cigarettes Q uit: 03/01/1981 Alcohol Use Standard Drinks/Week Comments No 0 (1 standard drink = 0.6 oz pur e alcohol) Comments Unknown Sex and Gender Information Value Date Recorded Sex Assigned at Not on file Legal Sex Female 9:31 AM CHILD LIFE THERAPIST Gender Identity Not on file Sexual Orientation [...] LEFT W PUNEET Routine 02/19/2016 12:00 AM CHILD LIFE THERAPIST documented in this encounter Results * Diagnostic Mammogram Left W Puneet (02/19/2016 12:00 AM CHILD LIFE THERAPIST) Anatomical Region Laterality Modality Breast Left Mammography 02/19/2016 2:22 PM CHILD LIFE THERAPIST Narrative 02/19/2016 4:44 PM CHILD LIFE THERAPIST Diagnostic mammogram with tomosynthesis left breast. HISTORY: [...] ultrasound abnormality identified on study 11/22/2015 at [facility]. FINDINGS: Left breast: Breast parenchyma is [...] KIN WEBER Requesting Fax: ?? Requesting ID: [id number] Attending Fax: ?? Attending ID: ?? [id number] Completed Time: ?? 02/19/2016 2:22 PM Dictated [...] ultrasound abnormality identified on study 11/22/2015 at [facility]. FINDINGS: Left breast: Breast parenchyma is [...] WEBER Requesting: KIN WEBER Requesting Requesting ID: [id number] Attending Attending ID: [id number] Completed Time: 02/19/2016 2:22 PM Dictated Time: [...] breast documented in this encounter Care Teams Telephone Repairer Relationship Specialty Start Date End Date Lida Land MD [address] [address] PCP - General 03/28/13 05/28/16 documented as of this encounter
--- OUTSIDE RECORDS SUMMARY | 2024-03-01 06:14 | XMS_ITS | Encounter Summary ---
Author Organization [facility] Medical Group Address [address] [facility] [address] [place] [address] Care Team Providers Care Channel Director Name Role Phone Lida Land MD Primary Care Provider [phone] Angie Riddle MD Unavailable [phone] Reason for Visit * Reason Comments Atrial Fibrillation Hyperlipidemia Hypertension Encounter Details Date Type Department Care Team (Latest Contact Info) Description 09/07/2016 10:15 AM CDT Office Visit [facility] Cardiology [address] [facility] [address] [place] [address] Nilton Cho MD [facility] [facility] [address] [place] [address] Essential hypertension (Primary Dx); Paroxysmal atrial fibrillation (CMS/HCC); Pacemaker; Pure hypercholesterolemia Social History Tobacco Use Types Packs/Day Years Used Date Smoking Tobacco: Former Alcohol Use Standard Drinks/Week Comments No 0 (1 standard drink = 0.6 oz pur e alcohol) Comments No Sex and Gender Information Value Date Recorded Sex Assigned at Not on file Legal Sex Female 9:31 AM COUNSELOR/ART THERAPIST Gender Identity Not on file Sexual [...] the original note were not included. [facility] [place] [address] Cardiology Jose Ramon Walker, MD Jonathan Garcia, MD Nilton Mason, MD Nilton Cho, MD Jacob Infante, DO Antonio Canela, MD Rajendra Nunes, MD Linda Carlton, MD Tomer Manjarrez, DO Vicki Mc, FISCAL CLERK Claudia Diaz, FISCAL CLERK Patient Name: Francine Erwin Provider: Nilton Cho [...] daily added in this encounter Care Teams Channel Director Relationship Specialty Start Date End Date Lida Land MD [address] [facility] [address] [place] [address] PCP - General 05/29/16 12/01/16 Angie Riddle MD [address] [place] [address] Gynecology 08/19/16 documented as of this encounter
--- OUTSIDE RECORDS SUMMARY | 2024-03-01 06:14 | XMS_ITS | Encounter Summary ---
Author Organization [facility] Medical Group Address [address] [address] Care Team Providers Care Exhibits Curator Name Role Phone Lida Land MD Primary Care Provider [phone] Lida Land MD Primary Care Provider [phone] Angie Riddle MD Unavailable [phone] Hardy Morgan MD PhD Primary Care Provider + Luisa Mitchell DO Primary Care Provider [phone] Encounter Details Date Type Department Care Team (Late st Contact Info) Description 05/11/2016 Orders Only [facility] Center Provider, MD Mikhail [address] [place] [address] Social History Tobacco Use Types Packs/Day Years Used Date Smoking Tobacco: Former Cigarettes Q uit: 03/01/1981 Alcohol Use Standard Drinks/Week Comments No 0 (1 standard drink = 0.6 oz pur e alcohol) Comments Unknown Sex and Gender Information Value Date Recorded Sex Assigned at Not on file Legal Sex Female 9:31 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 Gender Identity Not on file Sexual [...] on filedocumented in this encounter Care Teams Exhibits Curator Relationship Specialty Start Date End Date Lida Land MD [address] [facility] [address] [place] [address] PCP - General 05/29/16 12/01/16 Lida Land MD [address] [facility] [address] [place] [address] PCP - General 03/28/13 05/28/16 Hardy Morgan MD PhD [address] [facility] [address] [place] [address] PCP - General 12/02/16 08/10/22 Luisa Mitchell DO [address] [facility] [address] [place] [address] PCP - General Internal Medicine 08/11/22 Angie Riddle MD [address] [facility] [address] [place] [address] Gynecology 08/19/16 documented as of this encounter
--- OUTSIDE RECORDS SUMMARY | 2024-03-01 06:14 | XMS_ITS | Encounter Summary ---
Author Organization [facility] Facility Care Team Providers Care Insole Doubler Name Role Phone Unavailable Primary Care Provider Unavailabl e Encounter Details Date Type Department Care Team (Latest Contact Info) Description 06/03/2009 9:22 AM CDT - 06/03/2009 7:30 PM CDT Hospital Encounter [facility] Pepito Munoz MD [address] [facility] [address] [place] [address] Atrial flutter (CMS/HCC) (HCC); Atrial fibrillation (CMS/HCC) (HCC); Cardiac pacemaker in situ Social History Tobacco Use Types Packs/Day Years Used Date Smoking Tobacco: Never Assessed Comments Unknown Sex and Gender Information Value Date Recorded Sex Assigned at Not on file Legal Sex Female 9:31 AM PATIENT REGISTRATION CLERK Gender Identity Not on file Sexual Orientation Not on file documented as of this encounter Plan of Treatment Not on file documented as of this encounter Visit Diagnoses Diagnosis Atrial flutter (CMS/HCC) (HCC) Atrial flutter Atrial fibrillation (CMS/HCC) (HCC) Atrial fibrillation Cardiac pacemaker in situ documented in this encounter
--- OUTSIDE RECORDS SUMMARY | 2024-03-01 06:14 | XMS_ITS | Encounter Summary ---
Author Organization [facility] Medical Group Address [address] [facility] [address] [place] [address] Care Team Providers Care Stations Superintendent Name Role Phone Lida Land MD Primary Care Provider [phone] Angie Riddle MD Unavailable [phone] Reason for Visit * Reason Comments Device Check pacer check and OV w ith Dr. Cho * Cardiology (Routine) - Closed Specialty Diagnoses / Procedures Referred By Contac t Referred To Contact Diagnoses Sick sinus syndrome (CMS/HCC) (HCC) Procedures DEVICE CHECK - IN OFFICE Nilton Cho MD Phone: tel: fax: Referral ID Status Reason Start Date Expiration Date Visits Re quested Visits Authorized [id number] Closed 08/04/2016 01/31/2017 1 1 Encounter Details Date Type Department Care Team (Latest Contact Info) Description 09/07/2016 9:45 AM CDT Ancillary Procedure [facility] Cardiology [address] [facility] [address] [place] [address] Sick sinus syndrome (CMS/HCC); Pacemaker Social History Tobacco Use Types Packs/Day Years Used Date Smoking Tobacco: Former Alcohol Use Standard Drinks/Week Comments No 0 (1 standard drink = 0.6 oz pur e alcohol) Comments No Sex and Gender Information Value Date Recorded Sex Assigned at Not on file Legal Sex Female 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 s recommendations with appropriate battery voltage, lead [...] situ documented in this encounter Care Teams Stations Superintendent Relationship Specialty Start Date End Date Lida Land MD [address] [facility] [address] [place] [address] PCP - General 05/29/16 12/01/16 Angie Riddle MD [address] [place] [address] Gynecology 08/19/16 documented as of this encounter
--- OUTSIDE RECORDS SUMMARY | 2024-03-01 06:14 | XMS_ITS | Encounter Summary ---
Author Organization [facility] Facility Care Team Providers Care Slug Press Operator Name Role Phone Unavailable Primary Care Provider Unavailabl e Encounter Details Date Type Department Care Team (Latest Contact Info) Description 01/15/2009 7:42 AM DIRECTOR OF FINANCE - 01/15/2009 4:35 PM DIRECTOR OF FINANCE Hospital Encounter [facility] Nilton Cho MD [address] [facility] [address] [place] [address] Fitting and adjustment of cardiac pacemaker Social History Tobacco Use Types Packs/Day Years Used Date Smoking Tobacco: Never Assessed Comments Unknown Sex and Gender Information Value Date Recorded Sex Assigned at Not on file Legal Sex Female 9:31 AM DIRECTOR OF FINANCE Gender Identity Not on file Sexual Orientation Not on file documented as of this encounter Plan of Treatment Not on file documented as of this encounter Visit Diagnoses Diagnosis Fitting and adjustment of cardiac pacemaker documented in this encounter
--- OUTSIDE RECORDS SUMMARY | 2024-03-01 06:14 | XMS_ITS | Encounter Summary ---
Author Organization [facility] Facility Care Team Providers Care Automatic Lathe Setter Name Role Phone Unavailable Primary Care Provider Unavailabl e Encounter Details Date Type Department Care Team (Latest Contact Info) Description 11/06/2010 11:38 AM CDT - 11/08/2010 1:37 PM CDT Hospital Encounter [facility] Skinny Fitzgerald MD [address] [address] Mechanical complication of cardiac pacemaker electrode; Surgical [...] on file Legal Sex Female 9:31 AM SOCIAL MEDIA SPECIALIST Gender Identity Not on file [...]
--- OUTSIDE RECORDS SUMMARY | 2024-03-01 06:14 | XMS_ITS | Encounter Summary ---
Author Organization [facility] Medical Group Address [address] [facility] [address] [place] [address] Care Team Providers Care Care Center Manager Name Role Phone Lida Land MD Primary Care Provider [phone] Angie Riddle MD Unavailable [phone] Encounter Details Date Type Department Care Team (Late st Contact Info) Description 09/02/2016 Telephone [facility] [address] [facility] [address] [place] [address] Luisa Claudio, MANAGER MATERIALS MANAGEMENT [address] [facility] [address] [place] [address] Social History Tobacco Use Types Packs/Day Years Used Date Smoking Tobacco: Former Alcohol Use Standard Drinks/Week Comments No 0 (1 standard drink = 0.6 oz pur e alcohol) Comments No Sex and Gender Information Value Date Recorded Sex Assigned at Not on file Legal Sex Female 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 Gender Identity Not on file Sexual Orientation Not on file documented as of this encounter Miscellaneous Notes * Telephone Encounter - Luisa Claudio WHNP - 09/02/2016 1:57 PM CDT duplicate documented in this encounter Plan of Treatment Not on file documented as of this encounter Visit Diagnoses Not on filedocumented in this encounter Care Teams Care Center Manager Relationship Specialty Start Date End Date Lida Land MD [address] [facility] [address] [facility] [address] [place] [address] PCP - General 05/29/16 12/01/16 Angie Riddle MD [address] [place] [address] Gynecology 08/19/16 documented as of this encounter
--- OUTSIDE RECORDS SUMMARY | 2024-03-01 06:14 | XMS_ITS | Encounter Summary ---
Author Organization [facility] Medical Group Address [address] [facility] [address] [place] [address] Care Team Providers Care Pain Management Nurse Practitioner Name Role Phone Lida Land MD Primary Care Provider Angie Riddle MD Unavailable Reason for Visit * Reason Comments Follow-up Encounter Details Date Type Department Care Team (Late st Contact Info) Description 08/19/2016 10:45 AM CDT Office Visit [facility] [address] [facility] [address] [place] [address] Doug Hood MD [facility] [address] [place] [address] Lump or mass in breast (Primary Dx) Social History Tobacco Use Types Packs/Day Years Used Date Smoking Tobacco: Former Alcohol Use Standard Drinks/Week Comments No 0 (1 standard drink = 0.6 oz pur e alcohol) Comments No Sex and Gender Information Value Date Recorded Sex Assigned at Not on file 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 Hyperlipidemia Hyperlipidemia; Comments: [facility] 07/20/2013 - ??? Hypertension Hypertension; Comments: [facility] 07/20/2013 - ??? Paroxysmal atrial fibrillation (CMS/HCC) PAF - Paroxysmal atrial fibrillation; Comments: [facility] 07/20/2013 - ??? Sick sinus syndrome (CMS/HCC) SSS; Comments: [facility] 07/20/2013 - Past Surgical History: Procedure Laterality [...] to routine screening Herminio Shine Erwin [address] [facility] [address], [place] [address] ? [email or web address] documented in this encounter Plan of Treatment Not on file documented as of this encounter Visit Diagnoses Diagnosis Lump or mass in breast- Primary documented in this encounter Care Teams Pain Management Nurse Practitioner Relationship Specialty Start Date End Date Lida Land MD [address] [facility] [address] [place] [address] PCP - General 05/29/16 12/01/16 Angie Riddle MD [address] [place] [address] Gynecology 08/19/16 documented as of this encounter
--- OUTSIDE RECORDS SUMMARY | 2024-03-01 06:14 | XMS_ITS | Encounter Summary ---
Author Organization [facility] Medical Group Address [address] [facility] [address] [place] [address] Care Team Providers Care Track Man Name Role Phone Lida Land MD Primary Care Provider Angie Riddle MD Unavailable Reason for Visit * Reason Onset Date Comments Test Results 09/02/2016 Encounter Details Date Type Department Care Team (Late st Contact Info) Description 09/02/2016 Documentation [facility] [address] [facility] [address], [place] [address] Luisa Claudio, JULIANA [address] [facility] [address], [place] [address] Test Results Social History Tobacco Use Types Packs/Day Years Used Date Smoking Tobacco: Former Alcohol Use Standard Drinks/Week Comments No 0 (1 standard drink = 0.6 oz pur e alcohol) Comments No Sex and Gender Information Value Date Recorded Sex Assigned at Not on file 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
--- OUTSIDE RECORDS SUMMARY | 2024-03-01 06:14 | XMS_ITS | Encounter Summary ---
Author Organization [facility] Medical Group Address [address] [facility] [address] [place] [address] Care Team Providers Care Corrections Caseworker Name Role Phone Lida Land MD Primary Care Provider [phone] Lida Land MD Primary Care Provider [phone] Angie Riddle MD Unavailable [phone] Hardy Morgan MD PhD Primary Care Provider + Encounter Details Date Type Department Care Team (Late st Contact Info) Description 11/22/2015 Orders Only [facility] Health Information Management [address] [place] [address] Scanning, Provider Social History Tobacco Use Types Packs/Day Years Used Date Smoking Tobacco: Former Cigarettes Q uit: 03/01/1981 Alcohol Use Standard Drinks/Week Comments No 0 (1 standard drink = 0.6 oz pur e alcohol) Comments Unknown Sex and Gender Information Value Date Recorded Sex Assigned at Not on file Legal Sex Female 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
--- OUTSIDE RECORDS SUMMARY | 2024-03-01 06:14 | XMS_ITS | Encounter Summary ---
Author Organization [facility] Healthcare Address [address] [place] [address] Care Team Providers Care Chef French Name Role Phone Lida Kapoor MD Primary Care Provider Angie Riddle MD Unavailable [phone] Encounter Details Date Type Department Care Team (Latest Contact Info) Description 08/26/2016 9:54 AM CDT - 08/26/2016 11:59 PM CDT Hospital Encounter [facility] [phone] Doug Weber MD [address] [facility] [address] [place] [address] Discharge Disposition: Discharge to home or self care Social History Tobacco Use Types Packs/Day Years Used Date Smoking Tobacco: Former Alcohol Use Standard Drinks/Week Comments No 0 (1 standard drink = 0.6 oz pur e alcohol) Comments No Sex and Gender Information Value Date Recorded Sex Assigned at Not on file 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 IMPRESSION: 1. ??Satisfactory [...] DOUG WEBER Requesting Fax: ?? Requesting ID: [id number] Attending Fax: ?? Attending ID: ?? [id number] Completed Time: ?? 08/26/2016 11:05 AM Dictated Time: ?N/A Transcribed Time: 08/26/2016 12:40 AM Signed by: ?STEPH DON ?on 08/28/2016 08:31 AM Report To 1 ID: [id number] Report To 1 Name: Nathan KAPOOR Report To 1 FAX: Report To 2 ID: [id number] Report To 2 Name: ANGIE RIDDLE Report [...] patient prior to discharge from the [facility] in satisfactory condition. IMPRESSION: 1. Satisfactory [...] WEBER Requesting: DOUG WEBER Requesting Requesting ID: [id number] Attending Attending ID: [id number] Completed Time: 08/26/2016 11:05 AM Dictated Time: N/A Transcribed Time: 08/26/2016 12:40 AM Signed by: ARIAN STEPH on 08/28/2016 08:31 AM Report To 1 ID: [id number] Report To 1 Name: Nathan KAPOOR Report To 1 FAX: Report To 2 ID: [id number] Report To 2 Name: ANGIE RIDDLE Report To 2 FAX: Report To 3 ID: Report To 3 Name: , Report To 3 FAX: NextGen Order #: [id number] Doug Weber MD IMG US PROCEDURES Final Re sult * SURGICAL PATHOLOGY (08/26/2016 10:50 AM CDT) 08/26/2016 10:5 0 AM CDT 08/26/2016 12:16 PM CDT Narrative 08/27/2016 10:09 AM CDT [address] ??[address] Tele: ?? Moises Cao MD - Bottle Assembler ?? Jitendra Contreras - Dean Of Education SURGICAL PATHOLOGY REPORT ?Patient Name: FRANCINE ERWIN Address: [address] [place] [address] Service: Radiology ??[place], [place] ?? Location: ? RAD ? Taken: 08/26/2016 Gender: F Received 08/26/2016 : 1940 (Age: 76) Hospital #: [id number] Reported: 08/27/2016 ?? Patient Type: MB Ancillary Physician(s): [facility] - Dr. Sis Weber M.D. ?? DIAGNOSIS: [...] hyperplasia or malignancy. Clerical Data Follows A; [address] The immunohistochemical test(s) cited in this report, if any, was developed and its performance characteristics determined by [facility] Pathology Department. ??It has not been cleared or approved by the U.S. Food and Drug Administration. ??The FDA has determined that such clearance or approval is not necessary. ??This test is used for clinical purposes. ??It should not be regarded as investigational or for research. ??[facility] Laboratory is certified under the Clinical Laboratory [...] the patient prior to discharge from the [facility] in satisfactory condition. IMPRESSION: 1. ??Satisfactory [...] DOUG WEBER Requesting Fax: ?? Requesting ID: [id number] Attending Fax: ?? Attending ID: ?? [id number] Completed Time: ?? 08/26/2016 12:29 AM Dictated Time: ?N/A Transcribed Time: 08/26/2016 12:40 AM Signed by: ?STEPH DON ?on 08/28/2016 08:31 AM Report To 1 ID: [id number] Report To 1 Name: Nathan KAPOOR Report To 1 FAX: Report To 2 ID: [id number] Report To 2 Name: ANGIE RIDDLE Report [...] the patient prior to discharge from the [facility] in satisfactory condition. IMPRESSION: 1. Satisfactory [...] WEBER Requesting: DOUG WEBER Requesting Requesting ID: [id number] Attending Attending ID: [id number] Completed Time: 08/26/2016 12:29 AM Dictated Time: N/A Transcribed Time: 08/26/2016 12:40 AM Signed by: STEPH DON on 08/28/2016 08:31 AM Report To 1 ID: [id number] Report To 1 Name: Nathan KAPOOR Report To 1 FAX: Report To 2 ID: [id number] Report To 2 Name: ANGIE RIDDLE Report To 2 FAX: Report To 3 ID: Report To 3 Name: , Report To 3 FAX: NextGen Order #: [id number] Doug Weber MD IMG MAMMO PROCEDURES Final Result documented in this encounter Visit Diagnoses Not on filedocumented in this encounter Care Teams Chef French Relationship Specialty Start Date End Date Lida Kapoor MD [address] [facility] [address] [place] [address] PCP - General 05/29/16 12/01/16 Angie Riddle MD [address] [place] [address] Gynecology 08/19/16 documented as of this encounter
--- OUTSIDE RECORDS SUMMARY | 2024-03-01 06:14 | XMS_ITS | Encounter Summary ---
Author Organization [facility] Healthcare Address [address] [place] [address] Care Team Providers Care Employee Relations Assistant Name Role Phone Angie Riddle MD Unavailable [phone] Hardy Morgan MD PhD Primary Care Provider + Encounter Details Date Type Department Care Team (Latest Contact Info) Description 12/02/2016 8:35 AM CDT - 12/02/2016 4:48 PM CDT Hospital Encounter [facility] - Interventional Radiology [address] [place] [address] Smith Ortiz DO [address] [place] [address] [address] [place] [address] Discharge Disposition: Discharge to home or self care Social History Tobacco Use Types Packs/Day Years Used Date Smoking Tobacco: Former Alcohol Use Standard Drinks/Week Comments No 0 (1 standard drink = 0.6 oz pur e alcohol) Comments No Sex and Gender Information Value Date Recorded Sex Assigned at Not on file 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 Requesting Fax: ?? Requesting ID: [id number] Attending Fax: ?? Attending ID: ?? [id number] Completed Time: ?? 12/02/2016 11:28 AM Dictated Time: ?N/A Transcribed Time: 12/02/2016 12:55 PM Signed by: ?STEPH ODN ?on 12/02/2016 12:55 PM Report To 1 [...] facet and ligamentum flavum hypertrophy resulting in clzg-on-crzowsbq canal stenosis with encroachment of the lateral [...] Requesting: SMITH ORTIZ D.O. Requesting Requesting ID: [id number] Attending Attending ID: [id number] Completed Time: 12/02/2016 11:28 AM Dictated Time: [...] ORTIZ ??D.O. Requesting Fax: ?? Requesting ID: [id number] Attending Fax: ?? Attending ID: ?? [id number] Completed Time: ?? 12/02/2016 11:28 AM Dictated [...] Requesting: SMITH ORTIZ D.O. Requesting Requesting ID: [id number] Attending Attending ID: [id number] Completed Time: 12/02/2016 11:28 AM Dictated Time: [...] ORTIZ ??D.O. Requesting Fax: ?? Requesting ID: [id number] Attending Fax: ?? Attending ID: ?? [id number] Completed Time: ?? 12/02/2016 11:13 AM Dictated [...] Requesting: SMITH ORTIZ D.O. Requesting Requesting ID: [id number] Attending Attending ID: [id number] Completed Time: 12/02/2016 11:13 AM Dictated Time: [...] on filedocumented in this encounter Care Teams Employee Relations Assistant Relationship Specialty Start Date End Date Hardy Morgan MD PhD [address] [facility] [address] [place] [address] PCP - General 12/02/16 08/10/22 Angie Riddle MD [address] [place] [address] Gynecology 08/19/16 documented as of this encounter
--- OUTSIDE RECORDS SUMMARY | 2024-03-01 06:14 | XMS_ITS | Encounter Summary ---
Author Organization [facility] Facility Care Team Providers Care Thermostat Repairer Name Role Phone Lida Kapoor MD Primary Care Provider [phone] Encounter Details Date Type Department Care Team (Late st Contact Info) Description 02/26/2016 8:39 AM TERMITE TREATER HELPER - 02/26/2016 11:59 PM TERMITE TREATER HELPER Hospital Encounter [facility] Erwin, Kin Riojas MD [address] [facility] [address] [place] [address] Breast lump Social History Tobacco Use Types Packs/Day Years Used Date Smoking Tobacco: Former Cigarettes Q uit: 03/01/1981 Alcohol Use Standard Drinks/Week Comments No 0 (1 standard drink = 0.6 oz pur e alcohol) Comments Unknown Sex and Gender Information Value Date Recorded Sex Assigned at Not on file Legal Sex Female 9:31 AM TERMITE TREATER HELPER Gender Identity Not on file Sexual [...] BREAST LIMITED Routine 02/26/2016 9:1 0 AM TERMITE TREATER HELPER documented in this encounter Results * US Breast Limited (02/26/2016 9:10 AM TERMITE TREATER HELPER) Anatomical Region Laterality Modality Breast N/A Ultrasound 02/26/2016 9:10 AM TERMITE TREATER HELPER Narrative 02/26/2016 4:49 PM TERMITE TREATER HELPER LEFT BREAST ULTRASOUND LIMITED, 02/26/2016 HISTORY: Palpable abnormality in the left breast laterally, diagnostic mammography performed 02/19/2016, but the patient could not undergo recommended ultrasound at that time, recent evaluation [facility] 11/22/2015 COMPARISONS: 10/27/2012 through 02/19/2016 mammogram [...] correction software. ??Variances may occur. ??Please call [phone] during business hours with any concerns or questions. Electronically signed by: Brandon Nieves M.D. Radiologist: BRANDON NIEVES ?? Attending: ??KIN WEBER Requesting: KIN WEBER Requesting Fax: ?? Requesting ID: [id number] Attending Fax: ?? Attending ID: ?? [id number] Completed Time: ?? 02/26/2016 09:10 AM Dictated Time: ?N/A Transcribed Time: 02/26/2016 4:49 PM Signed by: ?BRANDON NIEVES ?? on 02/26/2016 4:49 PM Report To 1 ID: [id number] Report To 1 Name: Nathan KAPOOR Report To 1 FAX: Report To 2 ID: Report To 2 Name: , Report To 2 FAX: Report To 3 ID: Report To 3 Name: , Report To 3 FAX: NextGen Order #: [id number] Procedure Note Provider, MD Mikhail - 07/08/2016 LEFT BREAST ULTRASOUND LIMITED, 02/26/2016 HISTORY: Palpable abnormality in the left breast laterally, diagnostic mammography performed 02/19/2016, but the patient could not undergo recommended ultrasound at that time, recent evaluation [facility] 11/22/2015 COMPARISONS: 10/27/2012 through 02/19/2016 mammogram [...] correction software. Variances may occur. Please call [phone] during business hours with any concerns or questions. Electronically signed by: Brandon Nieves M.D. Radiologist: BRANDON NIEVES Attending: KIN WEBER Requesting: KIN WEBER Requesting Requesting ID: [id number] Attending Attending ID: [id number] Completed Time: 02/26/2016 09:10 AM Dictated Time: N/A Transcribed Time: 02/26/2016 4:49 PM Signed by: BRANDON NIEVES on 02/26/2016 4:49 PM Report To 1 ID: [id number] Report To 1 Name: Nathan KAPOOR Report To 1 FAX: Report To 2 ID: Report To 2 Name: , Report To 2 FAX: Report To 3 ID: Report To 3 Name: , Report To 3 FAX: NextGen Order #: [id number] us Historical Provider MD DAMON US PROCEDURES Final R esult documented in this encounter Visit Diagnoses Diagnosis Breast lump Lump or mass in breast documented in this encounter Care Teams Thermostat Repairer Relationship Specialty Start Date End Date Lida Kapoor MD [address] [facility] [address] [place] [address] PCP - General 03/28/13 05/28/16 documented as of this encounter
--- OUTSIDE RECORDS SUMMARY | 2024-03-01 06:14 | XMS_ITS | Encounter Summary ---
Author Organization [facility] Healthcare Address [address] [place] [address] Care Team Providers Care Seal Delivery Vehicle Officer Name Role Phone Lida Land MD Primary Care Provider [phone] Angie Riddle MD Unavailable [phone] Encounter Details Date Type Department Care Team (Latest Contact Info) Description 08/19/2016 10:24 AM CDT - 08/19/2016 11:59 PM CDT Hospital Encounter [facility] INTERIM [phone] Kin Weber MD [address] [facility] [address] [place] [address] Discharge Disposition: Discharge to home or self care Social History Tobacco Use Types Packs/Day Years Used Date Smoking Tobacco: Former Alcohol Use Standard Drinks/Week Comments No 0 (1 standard drink = 0.6 oz pur e alcohol) Comments No Sex and Gender Information Value Date Recorded Sex Assigned at Not on file 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 Requesting ID: [id number] Attending Fax: ?? Attending ID: ?? [id number] Completed Time: ?? 08/19/2016 11:39 AM Dictated [...] WEBER Requesting: KIN WEBER Requesting Requesting ID: [id number] Attending Attending ID: [id number] Completed Time: 08/19/2016 11:39 AM Dictated Time: [...] KIN WEBER Requesting Fax: ?? Requesting ID: [id number] Attending Fax: ?? Attending ID: ?? [id number] Completed Time: ?? 08/19/2016 11:06 AM Dictated [...] WEBER Requesting: KIN WEBER Requesting Requesting ID: [id number] Attending Attending ID: [id number] Completed Time: 08/19/2016 11:06 AM Dictated Time: [...] on filedocumented in this encounter Care Teams Seal Delivery Vehicle Officer Relationship Specialty Start Date End Date Lida Land MD [address] [facility] [address] [place] [address] PCP - General 05/29/16 12/01/16 Angie Riddle MD [address] [place] [address] Gynecology 08/19/16 documented as of this encounter
== END 2024-02-23 15:20 | disposition home or self-care (01) ==
PROVIDERS: Emergency Medicine; Emergency Provider Physician Assistant
DX: M71.21 Synovial cyst of popliteal space [Baker], right knee (principal); M17.11 Unilateral primary osteoarthritis, right knee; E78.5 Hyperlipidemia, unspecified; Z95.0 Presence of cardiac pacemaker; Z87.891 Personal history of nicotine dependence
CPT/HCPCS: 36415; 73564; 80053; 83880; 85025; 85610; 85730; 93971; 99284

== ENCOUNTER 2024-12-01 08:38 | Outpatient (CLI) | payer MEDICARE, SELFPAY ==
--- OUTSIDE RECORDS SUMMARY | 2024-07-03 05:45 | XMS_ITS ---
Author Organization [facility] steve Address [address] [facility] [facility] [address] [place] [address] Care Team Providers Care Optimization Manager Name Role Phone Luisa Mitchell DO Primary Care Provider Renetta Wilson Unavailable [phone] REASON FOR VISIT yd/follow up/flc Encounters Encounter Location Date Provider Diagnosis [facility] [address] [facility] [address] [place] [address] 07/03/2024 Renetta Bonner Plan Of Treatment No Information Progress Notes * Jessica CONNOReDOB: 2 (84 yo F)Acc No.[id number]:07/03/2024 Progress Notes Patient: Francine MORALEZ Appointment Provider: Renard BONNER MD :1940 A ge:84 Y S ex:Female Date:07/03/2024 Address:[address] [place], [place] [address] Pcp:Luisa Mitchell DO Subjective: * Chief Complaints: * 1 . Yd/follow up/flc. * Medical History: Objective: * Vitals: Assessment: Plan: * Treatment: * Billing Information: * Visit Code: * Procedure Codes: * Electronic signature of Renetta Bonner MD on 12/01/2024 at 08:46 AM CDT Sign off status: Pending * Appointment Provider: Renard BONNER MD Date: 0 07/03/2024 Generated for Printi ng/Faxing/eTransmitting on: 1 08:46 AM CDT
--- NOTE | ~2024-12-01 | US_ITS ---
EXAMINATION: US art doppler kinsey BROWN DATE: 12/01/2024 09:44 INDICATION: Bilateral lower extremity peripheral arterial occlusive disease TECHNIQUE: Segmental pressures and plethysmographic and Doppler waveforms of the brachial and lower extremity arteries were obtained. COMPARISON: None. FINDINGS: Right and left brachial artery pressures of 106 mm Hg and 108 mm Hg, respectively, are concordant (normal difference <= 30 mmHg). The right and left high-thigh pressure indices are 1.12 and 1.15, respectively (normal > 1.2). The right ankle-brachial index (MAEVE) is 1.32 (normal >= 0.9-1). The right great toe-brachial index (TBI) is 0.70 (normal >= 0.6-0.8). The right lower extremity segmental pressure gradients are normal (normal gradients <= 20-30 mmHg between adjacent levels on the same leg or the same levels on the two legs). Arterial waveforms are biphasic with normal brisk systolic upstrokes throughout the arteries of the right lower limb. The left MAEVE is 1.23. The left TBI is 0.73. The left lower extremity segmental pressure gradients are normal. Arterial waveforms are biphasic with normal brisk systolic upstrokes throughout the arteries of the left lower limb. IMPRESSION: 1. Normal MAEVE's and TBI's bilaterally. No significant occlusive disease. Reviewed, dictated and finalized at location A.
--- OUTSIDE RECORDS SUMMARY | 2024-12-01 08:47 | XMS_ITS | Clinical Summary ---
Author Organization [facility] Address [address] [place] [address] Phone Care Team Providers Care Bank Runner Name Role Phone Nathan Land MD Primary Care Provider [phone] Allergies No known active allergies Medications lisinopril (PRINIVIL) 5 mg Oral tablet daily. 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) Melissa COBOS SN: [id number] 12/23/2009 Overview (12/23/2009): status post pacemaker of [...] oz pur e alcohol) she drinks occasionally Comments Unknown Sex and Gender Information Value Date Recorded Sex Assigned at Not on file Legal Sex Female 5:56 AM TRIAGE RN Gender Identity Not on file Sexual Orientation [...] 1:50 PM CDT Height 160 cm (5' 3) 10/24/2010 1:50 PM CDT Body Mass Index 21.97 10/24/2010 1:50 PM CDT Plan of Treatment Health Maintenance Due Date Last Done Comments DTAP/TDAP/TD VACCINES (1 - Tdap) 1959 PNEUMOCOCCAL VACCINE 50+ YEARS (1 of 1 - PCV) 02/21/19 92 ZOSTER VACCINE (1 of 2) 02/22/1992 OSTEOPOROSIS SCREENING 2007 RSV VACCINE (60+ or ) (1 - 1-dose 75+ series) 2017 INFLUENZA VACCINE (#1) 2024 Insurance MEDICARE PART A AND B [employer] [facility] Care Teams Bank Runner Relationship Specialty Start Date End Date Nathan Land MD [address] [facility] [facility] [address] [place] [address] PCP - General Internal Medicine 04/24/10
--- OUTSIDE RECORDS SUMMARY | 2024-12-01 08:47 | XMS_ITS | Clinical Summary ---
Author Organization [facility] Address [address] [place] [address] Care Team Providers Care Wafer Substrate Tester Name Role Phone Angie Riddle MD Unavailable [phone] Mansoor Dumont MD Primary Care Provider [phone] Allergies No known active allergies Medications omega-3 fatty acids-vitamin E (FISH OIL) 1,000 mg capsule take 1 by Oral route 3 times every day 0 0 014 Active Additional Information Patient not taking.Reported on 09/15/2024 VIT C/E/ZN/COPPR/LUTE IN/ZEAXAN (PRESERVISION AREDS 2 ORAL) Take by mouth Take 2 capsules daily Active atorvastatin (LIPITOR) 20 mg tablet Take 1 tablet (20 mg total) by mouth daily Active dilTIAZem CD 180 mg 24 hr capsule Take by mouth daily 024 Active meloxicam (MOBIC) 7.5 mg tablet Take 1 tablet (7.5 mg total) by mouth daily Active CALCIUM CITRATE-VITAMIN D3 ORAL Take 1 tablet by mouth 2 (two) times a day VITAMIN D3 60MCG + CALCIUM 1200MG Active UNABLE TO FIND Chew daily Med Name: PREVAGEN Active hydroxychloroquin e (PLAQUENIL) 200 mg tabletIndications :Rheumatoid Arthritis,erosive osteoarthritis Take 1 tablet (200 mg total) by mouth daily 90 tablet 025 Active dabigatran (Pradaxa) 150 mg capsule Take 1 capsule (150 mg total) by mouth 2 (two) times a day 180 capsule 3 025 Active metoprolol XL (TOPROL-XL) 50 mg extended release tablet TAKE 1 TABLET BY MOUTH EVERY DAY 30 tablet 025 Active metoprolol XL (TOPROL-XL) 50 mg extended release tablet TAKE 1 TABLET BY MOUTH EVERY DAY 90 tablet 2 024 2024 Discontinued dabigatran (Pradaxa) 150 mg capsule Take 1 capsule (150 mg total) by mouth 2 (two) times a day 180 capsule 3 024 2024 Discontinued(R eorder) dabigatran (Pradaxa) 150 mg capsule Take 1 capsule (150 mg total) by mouth 2 (two) times a day 180 capsule 3 025 2024 Discontinued dabigatran (Pradaxa) 150 mg capsule Take 1 capsule (150 mg total) by mouth 2 (two) times a day 180 capsule 3 025 2024 Discontinued dabigatran (Pradaxa) 150 mg capsule Take 1 capsule (150 mg total) by mouth 2 (two) times a day 180 capsule 3 025 2024 Discontinued(R eorder) dabigatran (Pradaxa) 150 mg capsule Take 1 capsule (150 mg total) by mouth 2 (two) times a day 180 capsule 3 025 2024 Discontinued Active Problems Problem Noted Date Diagnosed Date 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 Has not had a recent eye exam. Refer to the eye doctor. We will also get referral to Rheumatology Mixed hyperlipidemia 07/04/2024 Assessment & Plan (07/04/2024 2:36 PM CDT): Doing well Primary osteoarthritis of right knee 03/27/2024 Assessment & Plan (07/04/2024 2:35 PM CDT): Follows with the Orthopedics. SSS (sick sinus syndrome) 11/08/2023 Assessment & Plan (07/04/2024 2:35 PM CDT): Has pacemaker followed by cardiology Paroxysmal atrial fibrillation 09/07/2016 Overview (09/07/2016): On chronic AC. Assessment & Plan (07/04/2024 2:35 PM CDT): On AC follows with Cardiology Assessment & Plan (06/09/2019 10:07 AM CDT): [...] [facility] Assessment & Plan (06/09/2019 10:06 AM CDT): Regular pacemaker checks Last 1 done 2 days ago Normal functioning dual-chamber pacemaker 4.5 years to [employer] Continue routine checks Breast mass, left 08/19/2016 Encounters Date Type Department Care Team Description 11/07/2024 Orders Only [facility] Medical [facility] Cardiology [address] [place] [address] Adore Salgado, RDCS 11/07/2024 Telephone [facility] Medical [facility] Cardiology [address] [place] [address] Yoni Matamoros MD 09/15/2024 1:35 PM CDT Lab [facility] ([facility]) [address] [place] [id number] Rheumatoid arthritis involving both hands with negative rheumatoid factor (HCC); High risk medication use 09/15/2024 11:18 AM CDT - 09/15/2024 11:59 PM CDT Hospital Encounter [facility] [address] [place] [address] Rheumatoid arthritis involving both hands with negative rheumatoid factor (HCC) Discharge Disposition: Discharge to home or self care 09/15/2024 10:00 AM CDT Office Visit [facility] Rheumatology [address] [facility] [address] [place] [address] [place] [address] Ilda Guaman NP Erosive osteoarthritis of both hands (Primary Dx); Rheumatoid arthritis involving both hands with negative rheumatoid factor (HCC); High risk medication use from Last 3 Months Immunizations Immunization Administration Dates Next Due Influenza Virus Vaccine Trivalent Mdv 12/05/2018 ,12/01/2017 Influenza, Quadrivalent, Spl it, Intramuscular 11/29/2020,12/06/2019 Influenza, Trivalent, High D ose, Split, Preservative Free, Intramuscular 12/13/2014,01/05/2014 Influenza, Trivalent, IM (MDV) 11/07/2012,2010,11/26/2008 Moderna SARS-CoV-2 Monovalen t Vaccination (12+ YRS) 05/01/2020,04/03/2020 Pneumococcal Conjugate PCV 13 12/17/2020, 008 Pneumococcal Polysaccharide PPV23 05/28/2014 Tetanus toxoid, adsorbed 04/29/2007 ZOSTER LIVE 03/17/2007 Surgical History Surgery Date Site/Laterality Comments CARDIAC PACEMAKER PLACEMENT 03/01/2010 - 02/28/2011 Cardiac pacemaker CARDIAC PACEMAKER PLACEMENT Cardiac pacemaker INSERT / REPLACE / REMOVE PACEMAKER Medical History Medical History Date Comments Sick sinus syndrome (HCC) SSS; C omments: [facility] 07/20/2013 - Paroxysmal atrial fibrillation (HCC) PAF - Paroxysmal atrial fibrillation; Comments: [facility] 07/20/2013 - Hypertension Hypertension; Co mments: [facility] 07/20/2013 - Hyperlipidemia Hyperlipidemia; Comments: [facility] 07/20/2013 - Pacemaker 08/26/2016 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 Chronic A lead is from 09-13-03. [facility]. Breast mass, left 08/19/2016 Family History [...] Cigarettes Q uit: 1985 Smokeless Tobacco: Never Tobacco Cessation:Counseling Given: Not Answered Alcohol Use Standard Drinks/Week Comments No 0 (1 standard drink = 0.6 oz pur e alcohol) AUDIT-C Answer Date Recorded Q1: How often do you have a drink containing alcohol? Never 09/15/2024 Q2: How many drinks containi ng alcohol do you have on a typical day when you are drinking? Patient does not drink Q3: How often do you have si x or more drinks on one occasion? Never 09/15/2024 Personal Safety Answer Date Recorded Have you ever been in or are you currently in a harmful physical or emotional relationship or is someone making you feel afraid or unsafe? 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 Gender Identity Not on file Sexual Orientation Not on file Obstetrics History Para Term AB IAB SAB Ectopic Multiple Livin g Live Births 2 2 2 2 2 Date Outcome GA Total Labor Labor/2nd/3rd Weight Sex Type Anes PTL Mayra A1 A5 Name Clin Term Term Last Filed Vital Signs Vital Sign Reading Time Taken Comments Blood Pressure 147/80 09/15/2024 9:41 AM CDT Pulse 70 09/15/2024 9:41 AM CDT Temperature 36.8 C (98.2 F) 09/15/2024 9:41 AM CDT Respiratory Rate 18 09/15/2024 9:41 AM CDT Oxygen Saturation 95% 03/16/2024 11:45 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 Inhaled Oxygen Concentration - - Weight 52.9 kg (116 lb 9.6 oz) 09/15/2024 9:41 A M CDT Height 160 cm (5' 3) 07/04/2024 1:45 PM CDT Body Mass Index 20.65 07/04/2024 1:45 PM CDT Plan of Treatment Health Maintenance Due Date Last Done Comments Depression Screening 1940 Fall Risk Assessment 1940 Well Visit 65+ 2007 DTaP/Tdap/Td Vaccine (1 - Tdap) 04/30/2007 8 Zoster Vaccine (1 of 2) 05/12/2007 03/17/2007 Osteoporosis Screening-Bone Density Scan 12/20/2016 12/20/2014 Covid-19 Vaccine (3 - Modern a risk series) 05/29/2020 05/01/2020, 04/03/2020 Influenza Vaccine (#1) 2024 , 12/06/2019, 12/05/2018, Additional history exists Pneumococcal vaccine 65+ Completed 021, 05/28/2014, 03/17/2007 Hepatitis B Screening Completed 09/15/2024 Medical Devices Implanted Type Area Hand Dry Cleaner Device Identifier Shelf Expiration Date Model / Serial / Lot Medtronic Inc Kylah S Mri Surescan 50.8x46.6mm 2 Chamber 7.4mm Pacemaker 22.5gm [id number] - [id number] - [id number] Implanted:Qty: 1 on 11/15/2023 by Arnold Stout III, MD at [facility] Pacemaker Medtronic Inc 01/26/2025 [id number] / [id number] / Explanted Type Area Hand Dry Cleaner Device Identifier Shelf Expiration Date Model / Serial / Lot Pacemaker-2010 Implanted:10/2010 by Skinny Fitzgerald MD (Quantity not on file) Explanted:Qty: 1 on 11/15/2023 by Arnold Stout III, MD at [facility] Pacemaker Left: Chest Medtronic sick sinus syndrome ADAPTA / [id number] / Description: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 Chronic A lead is from 09-13-03. [facility]. Manjula-Lia implant-Carelink She is on Pradaxa for AC. Procedures Procedure Name Priority Date/Time Associated Diagnosis Comments ERYTHROCYTE SEDIMENTATION RATE Routine 09/15/2024 11:52 AM CDT Rheumatoid arthritis involving both hands with negative rheumatoid factor (HCC) CRP (ACUTE PHASE) Routine 09/15/2024 11: 52 AM CDT Rheumatoid arthritis involving both hands with negative rheumatoid factor (HCC) HEPATITIS B CORE ANTIBODY, TOTAL Routine 09/15/2024 11:52 AM CDT Rheumatoid arthritis involving both hands with negative rheumatoid factor (HCC) High risk medication use HEPATITIS B SURFACE ANTIBODY (IMMUNE STATUS) Routine 09/15/2024 11:52 AM CDT Rheumatoid arthritis involving both hands with negative rheumatoid factor (HCC) High risk medication use HEPATITIS B SURFACE ANTIGEN Routine 09/15/2024 11:52 AM CDT Rheumatoid arthritis involving both hands with negative rheumatoid factor (HCC) High risk medication use HEPATITIS C ANTIBODY Routine 09/15/2024 11:52 AM CDT Rheumatoid arthritis involving both hands with negative rheumatoid factor (HCC) High risk medication use XR HAND BILATERAL 3 OR MORE VIEWS OF EACH Schedule Routine, Read Routine (OP Routine) 09/15/2024 11:35 AM CDT Rheumatoid arthritis involving both hands with negative rheumatoid factor (HCC) from Last 3 Months Results * Hepatitis C antibody Blood (09/15/2024 11:52 AM CDT) Hep C Ab Nonreactive Nonreactive Comment:Antibodies to HCV no t detected. Does NOT exclude the possibility of recent exposure to HCV. Current interpretive data was last revised on 21 Blood 09/15/2024 11:5 2 AM CDT 09/15/2024 12:32 PM CDT us Ilda Guaman NP LAB MICROBIOLOGY - GE NERAL ORDERABLES Final Result [facility] Department [place] [address] * Hepatitis B core antibody, total Blood (09/15/2024 11:52 AM CDT) Hep B core IgG/IgM Nonreactive Nonreactive Blood 09/15/2024 11:5 2 AM CDT 09/15/2024 12:32 PM CDT Ilda Guaman NP LAB MICROBIOLOGY - GE NERAL ORDERABLES Final Result Performing Organization Address [facility] Co de Phone Number [facility] [place] [address] * Hepatitis B surface antibody (immune status) Blood (09/15/2024 11:52 AM CDT) Pathologist [facility] HBsAb (immune status) Nonreactive Comment:This result is consi stent with a lack of immunity to Hepatitis B Virus when used in the setting of routine screening. Current interpretative data was last revised on 21 Blood 09/15/2024 11:5 2 AM CDT 09/15/2024 12:32 PM CDT Ilda Guaman NP LAB MICROBIOLOGY - GE NERAL ORDERABLES Final Result Performing Organization Address [facility] de Phone Number [facility] [place] [address] * Hepatitis B Surface Antigen Blood (09/15/2024 11:52 AM CDT) Pathologist [facility] HepBsAg Nonreactive Nonreactive Blood 09/15/2024 11:5 2 AM CDT 09/15/2024 12:32 PM CDT Ilda Guaman NP LAB MICROBIOLOGY - GE NERAL ORDERABLES Final Result Performing Organization Address [facility] Co de Phone Number [facility] [place] [address] * Erythrocyte sedimentation rate (09/15/2024 11:52 AM CDT) Erythrocyte sedimentation rate 9 1 - 30 mm/hr Blood 09/15/2024 11:5 2 AM CDT 09/15/2024 12:31 PM CDT Ilda Roper Rowena [employer] HRMS DEVELOPER LAB BLOOD ORDERABLES Final Result Performing Organization Address [facility] de Phone Number [facility] [place] [address] * CRP (acute phase) (09/15/2024 11:52 AM CDT) Pathologist [facility] CRP <0.5 <=10.0 mg/L Blood 09/15/2024 11:5 2 AM CDT 09/15/2024 12:32 PM CDT Ilda Jacquelin Guaman [employer]OP[employer] HRMS DEVELOPER LAB BLOOD ORDERABLES Final Result Performing Organization Address [facility] de Phone Number [facility] [place] [address] * XR Hand Bilateral 3 or More Views of Each (09/15/2024 11:35 AM CDT) Anatomical Region Laterality Modality Upper Extremities, Hand Computed Radiography 09/15/2024 3:58 PM CDT Impressions 09/15/2024 5:46 PM CDT 1. Erosive osteoarthritis throughout the interphalangeal joints bilaterally, most prominent at the proximal interphalangeal joints of the long fingers bilaterally. 2. 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 3. Bilateral ulnar styloid process and carpal erosions, which can be seen in the setting of inflammatory arthritis. 4. Bilateral chondrocalcinosis, which can be secondary to aging, hyperparathyroidism or calcium pyrophosphate deposition disease. Dictated by: Ruchi Stauffer M.D. The radiology attending physician has personally reviewed this study, and had reviewed and/or edited this written report and agrees with it. Electronically signed by: Miles Dailey MD Narrative 09/15/2024 5:46 PM CDT EXAMINATION: XR HAND BILATERAL 3 OR MORE VIEWS OF EACH HISTORY: Arthritis evaluation. Hand pain. COMPARISON: Bilateral hand x-rays 09/27/2023. FINDINGS: 3 views of each hand are submitted for interpretation with comparison to bilateral hand x-rays 09/27/2023. Left hand: There is no acute fracture or dislocation. There are multiple central and marginal erosions at the proximal interphalangeal and distal interphalangeal joints of digits 1 through 5. Overall unchanged from 09/27/2023. There is osteophyte formation of the interphalangeal joints, most severe at the 3rd proximal interphalangeal joint, progressed from 202. There is ulnar deviation of the middle and distal phalanges with respect to the proximal of digits 2 and 3. There is associated soft tissue swelling, significant at the 3rd digit. There is chondrocalcinosis of the metacarpophalangeal joints of digits 2, 3 and 5. 1st metacarpal carpal erosions and sclerosis, with osteophyte formation of the ulnar styloid. Right hand: There is no acute fracture or dislocation. Multiple central and marginal erosions at the proximal interphalangeal joints of digits 1 through 5, with large ulnar marginal erosions at the proximal interphalangeal joints of digits 2 and 3, overall unchanged from 2023. There is ulnar deviation most pronounced at the proximal interphalangeal joint of digit 3. Ulnar deviation of the distal phalanx of digits 1 and 2. There is associated soft tissue swelling most significant at the proximal interphalangeal joints of digits 2 and 3. There are 1st carpometacarpal erosions and sclerosis. There is there is chondrocalcinosis at the ulnar styloid with possible erosions, slightly worsened from 202. There is chondrocalcinosis at the metacarpophalangeal joints of digits 2 and 3. Bilaterally there are small unchanged erosions of the metacarpal heads. Metacarpophalangeal joint spaces are overall preserved. There are bilateral carpal erosions. Procedure Note Miles Dailey MD - 09/15/2024 EXAMINATION: XR HAND BILATERAL 3 OR MORE VIEWS OF EACH HISTORY: Arthritis evaluation. Hand pain. COMPARISON: Bilateral hand x-rays 09/27/2023. FINDINGS: 3 views of each hand are submitted for interpretation with comparison to bilateral hand x-rays 09/27/2023. Left hand: There is no acute fracture or dislocation. There are multiple central and marginal erosions at the proximal interphalangeal and distal interphalangeal joints of digits 1 through 5. Overall unchanged from 09/27/2023. There is osteophyte formation of the interphalangeal joints, most severe at the 3rd proximal interphalangeal joint, progressed from 202. There is ulnar deviation of the middle and distal phalanges with respect to the proximal of digits 2 and 3. There is associated soft tissue swelling, significant at the 3rd digit. There is chondrocalcinosis of the metacarpophalangeal joints of digits 2, 3 and 5. 1st metacarpal carpal erosions and sclerosis, with osteophyte formation of the ulnar styloid. Right hand: There is no acute fracture or dislocation. Multiple central and marginal erosions at the proximal interphalangeal joints of digits 1 through 5, with large ulnar marginal erosions at the proximal interphalangeal joints of digits 2 and 3, overall unchanged from 2023. There is ulnar deviation most pronounced at the proximal interphalangeal joint of digit 3. Ulnar deviation of the distal phalanx of digits 1 and 2. There is associated soft tissue swelling most significant at the proximal interphalangeal joints of digits 2 and 3. There are 1st carpometacarpal erosions and sclerosis. There is there is chondrocalcinosis at the ulnar styloid with possible erosions, slightly worsened from 202. There is chondrocalcinosis at the metacarpophalangeal joints of digits 2 and 3. Bilaterally there are small unchanged erosions of the metacarpal heads. Metacarpophalangeal joint spaces are overall preserved. There are bilateral carpal erosions. IMPRESSION: 1. Erosive osteoarthritis throughout the interphalangeal joints bilaterally, most prominent at the proximal interphalangeal joints of the long fingers bilaterally. 2. 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 3. Bilateral ulnar styloid process and carpal erosions, which can be seen in the setting of inflammatory arthritis. 4. Bilateral chondrocalcinosis, which can be secondary to aging, hyperparathyroidism or calcium pyrophosphate deposition disease. Dictated by: Ruchi Stauffer M.D. The radiology attending physician has personally reviewed this study, and had reviewed and/or edited this written report and agrees with it. Electronically signed by: Miles Dailey MD Ilda Guaman [employer] HRMS DEVELOPER IMG XR PROCEDURES Fin al Result from Last 3 Months Insurance MEDICARE [employer]ICARE [employer] MEDICARE [employer] Care Teams Wafer Substrate Tester Relationship Specialty Start Date End Date Mansoor Dumont MD [address] [address] PCP - General Internal Medicine 07/04/24 Angie Riddle MD [address] [address] [facility] 08/19/16
--- OUTSIDE RECORDS SUMMARY | 2024-12-01 08:47 | XMS_ITS | Clinical Summary ---
Author Organization [facility] Address [address] [place] [address] Care Team Providers Care Fight Manager Name Role Phone Luisa Mitchell DO Primary Care Provider [phone] Source Comments [facility] Affiliates and Associated Physician Practices is amultiple site organization consisting of ambulatory clinics and hospital sitesin [place] and [place]. This disclosure is being madepursuant to the Care Everywhere program and may not contain all information available regarding this patient. Last updated 17.[facility] Allergies No known active allergies Social History Tobacco Use Types Packs/Day Years Used Date Smoking Tobacco: Never Assessed Comments Unknown Sex and Gender Information Value Date Recorded Sex Assigned at Not on file Legal Sex Female 11:30 AM CDT Gender Identity Not on file Sexual Orientation Not on file Plan of Treatment Health Maintenance Due Date Last Done Comments BONE DENSITY TESTING 1940 MEDICARE AWV 12 MONTHS 1940 DTAP/TDAP/TD VACCINES (1 - Tdap) 1961 PNEUMOCOCCAL VACCINE 50+ (1 of 1 - PCV) 02/22/1992 ZOSTER VACCINE (1 of 2) 02/22/1992 Respiratory Syncytial Virus (RSV) Vaccine Pt: or over 60 yrs (1 - 1-dose 75+ series) 2017 DEPRESSION SCREENING 03/01/2024 COVID-19 VACCINE (1 - 2023-2 5 season) 2024 INFLUENZA VACCINE (#1) 2024 HEPATITIS B VACCINE Aged Out No longe r eligible based on patient's age to complete this topic HIB VACCINE Aged Out No longer eligi ble based on patient's age to complete this topic HPV VACCINE Aged Out No longer eligi ble based on patient's age to complete this topic MENINGOCOCCAL (Group B) VACC INE SHARED DECISION-MAKING Aged Out No longer eligibl e based on patient's age to complete this topic MENINGOCOCCAL GROUPS A/C/Y/W VACCINE Aged Out No longer eligible b ased on patient's age to complete this topic Insurance [employer]CIAL [employer] MEDICARE MEDICARE [employer] Care Teams Fight Manager Relationship Specialty Start Date End Date Luisa Mitchell DO [address] [facility] [address] [place] [address] PCP - General Internal Medicine 07/14/23
--- OUTSIDE RECORDS SUMMARY | 2024-12-01 08:47 | XMS_ITS | Patient Health Record ---
Author Organization [facility] Address [address] [place] [address] Care Team Providers Care Maturity Checker Name Role Phone Luisa Mitchell DO Primary Care Provider Raymondlexx rios YimiRenetta Unavailable [phone] Allergies No Known Allergies Reason For Referral No Information Medications Medication SIG (Take, Route, Frequency, Duration) Notes Start Date End Date Status Hydroxychloroquine Sulfate 2 00 MG TAKE ONE TABLET BY MOUTH EVERY DAY WITH FOOD; Duration: 30 Active Calcium 500 Active Meloxicam 7.5 MG 1 tablet Orally Once a day; Duration: 30 day(s) Active Metoprolol Succinate ER 25 MG 1 tablet O rally Once a day; Duration: 30 day(s) Active Pradaxa 150 MG 1 capsule Orally Twi ce a day; Duration: 30 day(s) Active Atorvastatin Calcium 20 MG 1 tablet Oral ly Once a day; Duration: 30 day(s) Active dilTIAZem HCl ER 240 MG 1 tablet Orally Once a day; Duration: 30 day(s) Active Eye Health - as directed Orally Active B Complex - as directed Orally Active Prue 3-6-9 - as directed Orally Active Social History [...] Problem Status W/U Status Risk Notes Problem Rheumatoid arthritis (16746209) Rheumatoid arthritis 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, multiple sites (M06.09) Active confirmed Problem Generalized osteoarthritis (467213701) Generalized osteoarthritis (M15.9) Active confirmed Vital Signs Heart Rate 85 /min 04/24/2024 Temperature 97.0 degrees Fahrenheit 01/13/2024 Blood pressure diastolic 90 mm Hg 04/24/2024 Oximetry 95 % 04/24/2024 Height-cm 157.48 cm 04/24/2024 Weight-kg 51.25 kg 01/13/2024 Height 62 in 04/24/2024 Blood pressure systolic 130 mm Hg 04/24/2024 Weight 113.0 lbs 01/13/2024 BMI 20.67 kg/m2 01/13/2024 Encounters Encounter Location Date Provider Diagnosis [facility] [address] [place] [address] 01/13/2024 Renetta Geller Rheumatoid arthritis 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, multiple sites M06.09 ; Generalized osteoarthritis M15.9 and High risk medication use Z79.899 [facility] [address] [place] [address] 04/24/2024 Renetta Geller Rheumatoid arthritis 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, multiple sites M06.09 ; Generalized osteoarthritis M15.9 and High risk medication use Z79.899 [facility] [address] [place] [address] 04/14/2024 Renetta Geller Assessments Encounter Date Diagnosis (ICD Code) Assessment Notes Treatment Notes Treatment Clinical Notes Section Notes 01/13/2024 Rheumatoid arthritis 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, multiple sites (ICD-10 - M06.09) advised to sto p mobic due to being on pradaxa and borderline GFR, hx of bradycardia and atrial fibrillation s/p pacer, advised her to call assembler billiard table and ask if plaquenil can be continued (it has hlped with joint pain) 04/24/2024 Rheumatoid arthritis 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, multiple sites (ICD-10 - M06.09) advised again to stop mobic due to being on pradaxa and borderline GFR, continue plaquenil, advised about eye exam, return in 2 to 3 months 01/13/2024 Generalized osteoarthritis (ICD-10 - M15.9) advised to stop mobic due to being on pradaxa and borderline GFR, hx of bradycardia and atrial fibrillation s/p pacer, advised her to call assembler billiard table and ask if plaquenil can be continued (it has hlped with joint pain) 04/24/2024 Generalized osteoarthritis (ICD-10 - M15.9) advised again to stop mobic due to being on pradaxa and borderline GFR, continue plaquenil, advised about eye exam, return in 2 to 3 months 01/13/2024 High risk medication use (ICD-10 - Z79.899) advised to st op mobic due to being on pradaxa and borderline GFR, hx of bradycardia and atrial fibrillation s/p pacer, advised her to call assembler billiard table and ask if plaquenil can be continued (it has hlped with joint pain) 04/24/2024 High risk medication use (ICD-10 - Z79.899) advised again to stop mobic due to being on pradaxa and borderline GFR, continue plaquenil, advised about eye exam, return in 2 to 3 months Plan Of Treatment Pending Test Test Name Order Date X ray : Foot, right 09/27/2023 X ray : Hands, bilateral 09/27/2023 X ray : Knee, right 2 views 09/27/2023 Insurance Providers Payer Name Payer Address Payer Phone Subscriber Number Group Number Insured Name Patient Relationship to Insured Coverage Start Date Coverage End Date Medicare [address] [address] [place] [address] [id number] Francine Erwin Self - patient is the insured [employer] [facility] [address] [address] [place] [id number] Francine Erwin Self - patient is the insured Medical (General) History Medical History History ICD Code atrial fibrillation, gastrit is, hypertension, hyperlipidemia, insomnia, hypervitaminosis D, proteinuria, skin cancer, spinal stenosis, psoriasis Surgical History Surgery Date(Month/Year) pace maker
--- OUTSIDE RECORDS SUMMARY | 2024-12-01 08:47 | XMS_ITS | Encounter Summary ---
Author Organization [facility] Address [address] [address] Care Team Providers Care Runstitching Machine Operator Name Role Phone Lida Land MD Primary Care Provider [phone] Lida Land MD Primary Care Provider [phone] Angie Riddle MD Unavailable [phone] Hardy Morgan MD PhD Primary Care Provider + Luisa Mitchell DO Primary Care Provider [phone] Mansoor Dumont MD Primary Care Provider [phone] Encounter Details Date Type Department Care Team (Late st Contact Info) Description 05/11/2016 Orders Only Arrhythmia [facility] ProviderMikhail MD [address] [place] [id number] Social History Tobacco Use Types Packs/Day Years Used Date Smoking Tobacco: Former Cigarettes Q uit: 03/01/1981 Alcohol Use Standard Drinks/Week Comments No 0 (1 standard drink = 0.6 oz pur e alcohol) Comments Unknown Sex and Gender Information Value Date Recorded Sex Assigned at Not on file Legal Sex Female 9:31 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 us Historical Provider [facility] Final Result documented in this encounter Visit Diagnoses Not on filedocumented in this encounter Care Teams Runstitching Machine Operator Relationship Specialty Start Date End Date Lida Land MD [address] [facility] [address] [place] [address] PCP - General 05/29/16 12/01/16 Lida Land MD [address] [facility] [address] [place] [address] PCP - General 03/28/13 05/28/16 Hardy Morgan MD PhD [address] [facility] [address] [place] [address] PCP - General 12/02/16 08/10/22 Luisa Mitchell DO [address] [facility] [address] [place] [address] PCP - General Internal Medicine 08/11/22 07/03/24 Mansoor Dumont MD [address] [facility] [address] [place] [address] PCP - General Internal Medicine 07/04/24 Angie Riddle MD [address] [facility] [address] [place] [address] Gynecology 08/19/16 documented as of this encounter
--- OUTSIDE RECORDS SUMMARY | 2024-12-01 08:47 | XMS_ITS | Encounter Summary ---
Author Organization [facility] Address [address] [facility] [place] [address] Care Team Providers Care Soldering Machine Operator Automatic Name Role Phone Luisa Mitchell Primary Care Provider [phone] Encounter Details Date Type Department Care Team (Late st Contact Info) Description 08/20/2022 Lab Requisition [facility] - DermPath Lab [address] [facility] [place] [id number] Tomy Mcmanus MD [address] [place] [address] Social History Tobacco Use Types Packs/Day Years [...] 12:00 AM CDT) Case Report Dermatopathology Report Case: [id number] Authorizing Provider: Tomy Mcmanus MD Collected: 08/19/2022 12:00 AM Ordering Location: [facility] D[facility] Lab Received: 08/20/2022 11:49 AM Pathologist: Indu Lakhani MD Specimen: Skin, right mid antihelix 3:52 PM CDT DERMATOPATHOLOGY LABORATORY Final Diagnosis Specimen A. 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 Marilin Stinson. These tests need not be, and therefore are not, approved by the [place] Food and Drug Administration. The tests are used for clinical purposes. Billing Codes Specimen Charges Stain Charges 88928 1 3 3:52 PM CDT DERMATOPATHOLOGY LABORATORY Embedded Images 3 3:52 PM CDT DERMATOPATHOLOGY LABORATORY Pathology/Cytolog y TISSUE SPECIMEN FROM SKIN / Unknown 08/19/2022 08/20/2022 11:49 AM CDT us Tomy Mcmanus MD LAB - PATHOLOGY/CYTOLOGY ORD ERABLES Final Result DERMATOPATHOLOGY LABORATORY [facility] - Department of Dermatology [facility] Medicine [address] [place] [address], [address] [place] [address], [facility] [phone] documented in this encounter Visit Diagnoses Not on filedocumented in this encounter Care Teams Soldering Machine Operator Automatic Relationship Specialty Start Date End Date Luisa Mitchell DO [address] [facility] [address] [place] [address] PCP - General Internal Medicine 07/14/23 documented as of this encounter
== END 2024-12-01 08:39 | disposition home or self-care (01) ==
PROVIDERS: PCP Internal Medicine; Visit Provider Podiatrist Foot & Ankle Surgery
DX: I73.9 Peripheral vascular disease, unspecified (principal)
CPT/HCPCS: 93923